=== PATIENT | female | born 1975 | race Caucasian/White ===

== ENCOUNTER → 2020-08-10 12:45 | Outpatient (CLI) | payer BC, SELFPAY ==
--- NOTE | ~2020-08-10 | MR_ITS ---
EXAMINATION: MR knee RT wo con DATE: 08/10/2020 13:30 INDICATION: Right knee pain and weakness TECHNIQUE: Magnetic resonance imaging (MRI) of the right knee was performed without intravenous contr ast. Sequences included coronal PD-weighted FSE, coronal PD-weighted FS FSE, sagittal T2-weighted FS E, sagittal PD-weighted FS FSE and axial PD weighted fat saturated FSE. COMPARISON: None. FINDINGS: Medial compartment: Medial meniscus is normal. Partial-thickness cartilage loss with chondral surface regularity along th e anterior to central weightbearing medial femoral condyle where it appears to involve greater than 5 0% the cartilage thickness but without degenerative subchondral changes. A severe partial thickness c artilage loss with mild chondral surface regularity along the anterior medial tibial plateau. There i s mild subarticular edema along the anteromedial rim of the medial tibial plateau. Small marginal ost eophytes are present. Lateral compartment: Lateral meniscus is normal. Deep chondral fissuring at the anterior to central weightbearing lateral femoral condyle and likely small central subchondral osteophyte. Mild partial thickness cartilage los s with smooth chondral surface irregularity along the lateral tibial plateau. Patellofemoral compartment: Partial-thickness cartilage loss which appears to involve greater than 50% the cartilage thickness at the cephalad half of the patella including the lateral facet. There is mild subarticular edema as we ll as the medial facet. There is deep chondral fissuring at the caudal aspect of the patella where th e cartilage thickness is more preserved. Deep chondral fissuring at the trochlear groove and partial- thickness chondral ulceration along the caudal aspect of the lateral trochlea, both regions with subt le underlying cortical irregularity and the latter with mild subarticular edema. Ligaments and tendons: Anterior and posterior cruciate ligaments are normal. The fibular collateral ligament complex is norm al. Mild thickening and mild increased signal without surrounding edema at the proximal aspect of the medial collateral ligament consistent with mild scarring related to chronic sprain. The extensor mec hanism is normal. The visualized medial and lateral hamstring tendons as well as the iliotibial band are normal. Fluid: Physiologic amount of fluid in the joint space. No loose osteochondral bodies identified. Osseous/other: Aside from the previously noted tiny foci of mild subarticular edema there is normal marrow signal. N o fracture or pathologic marrow replacing process. A couple small bone islands at the lateral femoral condyle. There is mild edema in the superficial suprapatellar fat pad which can be seen with fat pad impingement syndrome. IMPRESSION: 1. 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 2. Mild edema in the superficial suprapatellar fat pad which can be seen with fat pad impingement syn drome. Reviewed, dictated and finalized at location A. IMPRESSION: 1. 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 2. Mild edema in the superficial suprapatellar fat pad which can be seen with f at pad impingement syndrome.
== END ==
PROVIDERS: PCP Family Medicine; Visit Provider Orthopaedic Surgery
DX: M25.561 Pain in right knee (principal); M94.261 Chondromalacia, right knee; M17.11 Unilateral primary osteoarthritis, right knee; M79.89 Other specified soft tissue disorders
CPT/HCPCS: 73721

== ENCOUNTER 2021-02-21 11:35 | Outpatient (CLI) | payer BC, SELFPAY ==
--- NOTE | ~2021-02-21 | US_ITS ---
EXAMINATION: US knee asp inj w image LT DATE: 02/21/2021 13:06 INDICATION: Left knee joint effusion TECHNIQUE: A time-out was performed to verify the patient's name, date of , and procedure to be performed . The procedure and its benefits and risks were discussed with the patient. Risks specifically discus sed included bleeding and infection. The patient understood the risks and agreed to proceed. The knee overlying the lateral aspect of the suprapatellar pouch was prepped and draped in the usual sterile manner. 3 mL 1% lidocaine was used for local anesthesia. A 20-gauge spinal needle was advanced into the left knee joint effusion utilizing continuous sonographic guidance. 33 mL of mildly turbid mejia sh orange-colored fluid was aspirated and sent to the lab for studies as ordered by the referring natan kim. A sterile bandage was applied. There were no immediate complications. FINDINGS: Grayscale ultrasound images demonstrate the aspiration needle advanced into a moderate-sized left kne e joint effusion at the lateral margin of the suprapatellar pouch. IMPRESSION: 1. Successful ultrasound-guided left knee arthrocentesis. Reviewed, dictated and finalized at location A.
[2021-02-21 13:22] LABS: Basophils Percent Auto 0.2 % (0.2-1.2); Eosinophils Absolute Auto 0.1 K/mm3 (0-0.3); Eosinophils Percent Auto 1.1 % (0-4.4); Hematocrit 43.4 % (37.0-47.0); Hemoglobin 14.1 g/dL (12.0-15.0); Immature Granulocyte Absolute 0.03 K/mm3 (0.00-0.031); Immature Granulocyte Percent A 0.3 % (0-0.5); Lymphocytes Absolute Auto 2.68 K/mm3 (0.9-3.2); Lymphocytes Percent Auto 25.8 % (18.3-44.2); Mean Corpuscular HGB Conc 32.5 g/dl (32-36); Mean Corpuscular Volume 89.3 fl (80-100); Mean Platelet Volume 11.5 fl (7.4-10.4); Monocytes Absolute Auto 0.6 K/mm3 (0.1-0.6); Monocytes Percent Auto 6.1 % (2.6-8.5); Neutrophils Absolute Auto 6.9 K/mm3 (1.3-6.7); Neutrophils Percent Auto 66.5 % (45.5-73.1); Platelet Count Result 281 k/mm3 (150-375); Red Blood Count 4.86 M/mm3 (4.2-5.4); Red Cell Distribution Width 13.5 % (11.5-14.5); White Blood Count 10.4 K/mm3 (4.5-10.0)
[2021-02-21 13:40] LABS: CRP < 0.5 mg/dL (<1.0)
[2021-02-21 13:51] LABS: Erythrocyte Sedimentation Rate 26 mm/hr (0-20)
[2021-02-21 16:44] LABS: Crystals Synovial Fluid None Seen (None Seen)
[2021-02-21 16:45] LABS: Appearance Synovial Fluid Cloudy (Clear); Color Synovial Fluid Red (Colorless); Nucleated Cell Synovial Fluid 800 /uL (0-200); Source Synovial Fluid Synovial fluid
[2021-02-21 16:46] LABS: Lymphocytes Synovial Fluid 10 %; Monocytes Synovial Fluid 14 %; Neutrophils Synovial Fluid 61 % (0-25)
[2021-02-21 16:47] LABS: Macrophages Synovial Fluid 15 %
== END 2021-02-21 11:36 | disposition home or self-care (01) ==
PROVIDERS: PCP Family Medicine; Visit Provider Orthopaedic Surgery
DX: M25.562 Pain in left knee (principal); M24.562 Contracture, left knee
CPT/HCPCS: 20611; 36415; 85025; 85652; 86140; 87070; 87075; 87076; 87205; 89051; 89060

== ENCOUNTER 2021-09-28 07:39 | Emergency (ER) | payer BC, MEDICARE, SELFPAY ==
[2021-09-28] VITALS (7 sets, daily range): BP systolic 133–141; BP diastolic 84–85; PULSE 78–89; RESP 14–29; TEMP 36.3; O2SAT 98–100
--- NOTE | ~2021-09-28 | XR_ITS ---
EXAMINATION: XR chest 2V DATE: 09/28/2021 08:10 INDICATION: Midsternal chest pain TECHNIQUE: PA and lateral views of the chest are obtained. COMPARISON: 05/09/2019 FINDINGS: The lungs are free of acute opacities. There is no pleural effusion or pneumothorax. The ca rdiomediastinal silhouette is normal. There is mild thoracic spondylosis. IMPRESSION: 1. No acute cardiopulmonary abnormality. Reviewed, dictated and finalized at location A.
--- NOTE | 2021-09-28 07:41 | ECG_ITS ---
Measurements Intervals [place] Rate: 87 P: 34 [place]: 164 QRS: -15 QRSD: 111 T: 11 QT: 385 QTc: 465 Interpretive Statements SINUS RHYTHM INCOMPLETE RIGHT BUNDLE BRANCH BLOCK BORDERLINE T WAVE ABNORMALITY- INFERIORLEADS BASELINE ARTIFACT- I, II, III, AVL, AVF, V3 BORDERLINE ECG Electronically Signed On 09-28-2021 7:56:22 CDT by Earl Leon D.O.
[2021-09-28] MEDS: ASPIRIN 81 MG CHEWABLE TABLET 324 MG PO (07:57)
[2021-09-28 07:58] LABS: Basophils Percent Auto 0.2 % (0.2-1.2); Eosinophils Absolute Auto 0.1 K/mm3 (0-0.3); Eosinophils Percent Auto 1.3 % (0-4.4); Hematocrit 45.7 % (37.0-47.0); Hemoglobin 14.9 g/dL (12.0-15.0); Immature Granulocyte Absolute 0.03 K/mm3 (0.00-0.031); Immature Granulocyte Percent A 0.3 % (0-0.5); Lymphocytes Absolute Auto 3.04 K/mm3 (0.9-3.2); Lymphocytes Percent Auto 30.6 % (18.3-44.2); Mean Corpuscular HGB Conc 32.6 g/dl (32-36); Mean Corpuscular Hemoglobin 29.9 pg (26-34); Mean Corpuscular Volume 91.6 fl (80-100); Mean Platelet Volume 11.2 fl (7.4-10.4); Monocytes Absolute Auto 0.7 K/mm3 (0.1-0.6); Monocytes Percent Auto 7.1 % (2.6-8.5); Neutrophils Percent Auto 60.5 % (45.5-73.1); Platelet Count Result 278 k/mm3 (150-375); Red Blood Count 4.99 M/mm3 (4.2-5.4); Red Cell Distribution Width 14.3 % (11.5-14.5)
[2021-09-28 08:20] LABS: Alanine Aminotransferase 26 U/L (6-35); Albumin Level 4.4 g/dL (3.5-5.1); Alkaline Phosphatase 67 U/L (38-126); Anion Gap 10 mmol/L (8-16); Aspartate Amino Transferase 35 U/L (14-36); Bilirubin,Total 0.3 mg/dL (0.2-1.3); Blood Urea Nitrogen 14 mg/dL (7-17); Carbon Dioxide 24 mmol/L (22-30); Chloride 103 mmol/L (98-107); Estimated CRCL calculation 145 ml/min; Estimated Glomerular Filt Rate > 60; Glucose 137 mg/dL (65-110); Lipase 80 U/L (23-300); Potassium 3.8 mmol/L (3.4-5.0); Sodium 137 mmol/L (137-145)
[2021-09-28 08:21] LABS: Partial Thromboplastin Time 27.4 SECONDS (22.3-36.8); Prothrombin Time 12.6 Seconds (11.1-14.7)
--- NOTE | 2021-09-28 08:22 | ED.CHESTPAIN ---
HPI - Chest Pain General Chief Complaint: Chest Pain Stated Complaint: chest pain/panic attack Time Seen by Provider: 09/28/21 07:47 Source: patient Mode of arrival: ambulatory Limitations: no limitations History of Present Illness HPI narrative: Patient is 46 years old white female who woke up with pain across the chest and across upper back, hurts to breathe, nausea, dizzy, squeezing feeling across the chest. History of psoriatic arthritis, and anxiety and depression. Patient was started infusion for psoriatic arthritis 5 weeks ago, had 1 mg Klonopin prior to arrival to the emergency room, been stressed and anxious over the last 7 days, cannot sleep well lately. Used to be on marijuana which is stopped 1 week ago. She denies any fever, chills, vomiting, trouble breathing. Patient believes that she have a panic attack Related Data Home Medications Medication Instructions Recorded Confirmed ropinirole 1 mg PO HS 05/09/19 06/27/21 calcium carbonate 600 mg calcium 600 mg PO DAILY 06/06/20 06/27/21 (1,500 mg) tablet mecobalamin (vitamin B12) 5,000 mcg PO 06/06/20 06/27/21 mcg disintegrating tablet multivitamin 1 tablet PO DAILY 06/06/20 06/27/21 pantoprazole 20 mg tablet,delayed 20 mg PO QAM 06/06/20 06/27/21 release vitamin B complex 1 tablet PO DAILY 06/06/20 06/27/21 aripiprazole 10 mg tablet 15 mg PO DAILY tablet 05/17/21 06/27/21 methotrexate sodium 5 mg tablet See Rx Instructions PO WEEKLY 06/19/21 06/27/21 prednisone 5 mg tablet See Rx Instructions PO DAILY 06/19/21 06/27/21 tramadol 50 mg tablet See Rx Instructions PO Q6H PRN 06/19/21 06/27/21 clonazepam 09/28/21 duloxetine mg PO 09/28/21 lemborexant [Dayvigo] mg PO 09/28/21 ramelteon mg PO 09/28/21 triazolam 09/28/21 Allergies Allergy/AdvReac Type Severity Reaction Status Date / Time Penicillins Allergy Severe Hives Verified 09/28/21 07:58 adhesive Allergy Intermediate BLISTERS/RA Verified 09/28/21 07:58 SH latex Allergy Intermediate Rash Verified 09/28/21 07:58 amoxicillin Allergy Mild Unknown Verified 09/28/21 07:58 azithromycin Allergy Unknown Unknown Verified 09/28/21 07:58 ibuprofen AdvReac Mild Other Verified 09/28/21 07:58 Review of Systems Review of Systems: All systems reviewed & are unremarkable except as noted in HPI and below PMFSH Past Medical History Medical History Anemia Anxiety Arthritis Arthritis of knee, right Crohn's proctitis She notes it has been labelled on the Crohn's umbrella, but denies actually having Crohn's Depression Endometriosis Enteropathic arthritis Fibroids Fibromyalgia (~2008) Hiatal hernia Insomnia Interstitial cystitis Psoriatic arthritis (~2019) Restless leg syndrome UTI (urinary tract infection) Vitamin D deficiency Surgical History Surgical History History of breast surgery right - excision abscess 2019 History of cholecystectomy 2005 History of dilation and curettage 2008 - 2009 multiple History of gastric bypass 2014 History of hysterectomy 2019 History of left knee replacement February 2020 - [facility] History of parotid gland excision benign tumour - 2010 History of repair of rectocele 2019 Thyroid tumor, benign cyst excision - 1993 Family History Family History Father Hypertension Family history of elevated blood lipids Family history of arthritis Mother Hypertension Family history of elevated blood lipids Family history of osteoporosis Family history of malignant neoplasm of breast Grandparent Family history of osteoporosis Hypertension Family history of Alzheimer's disease Family history of emphysema Family history of malignant neoplasm of ovary Sibling Hypertension Family history of arthritis Social History Social History Smoking packs per day
[2021-09-28 08:30] LABS: Troponin I < 0.012 ng/mL (0.000-0.034)
[2021-09-28] MEDS: LORazepam INJ (*CRX) 2 MG/ML VIAL 1 MG IV PUSH (08:40)
[2021-09-28 10:08] LABS: D Dimer < 0.27 ug/mL (<0.48)
== END 2021-09-28 10:11 | disposition home or self-care (01) ==
PROVIDERS: Emergency Provider Emergency Medicine; PCP Family Medicine
DX: R07.9 Chest pain, unspecified (principal); F41.9 Anxiety disorder, unspecified; L40.50 Arthropathic psoriasis, unspecified; K50.90 Crohn's disease, unspecified, without complications; M79.7 Fibromyalgia; G25.81 Restless legs syndrome; M17.11 Unilateral primary osteoarthritis, right knee; F32.A Depression, unspecified; E55.9 Vitamin D deficiency, unspecified; Z86.2 Personal history of diseases of the blood and blood-forming organs and certain disorders involving the immune mechanism; Z87.440 Personal history of urinary (tract) infections; Z98.84 Bariatric surgery status; Z96.652 Presence of left artificial knee joint; Z87.891 Personal history of nicotine dependence; I45.10 Unspecified right bundle-branch block; R94.31 Abnormal electrocardiogram [ECG] [EKG]
CPT/HCPCS: 36415; 71046; 80053; 83690; 84484; 85025; 85380; 85610; 85730; 93005; 96374; 99284; A9270; J2060

== ENCOUNTER 2021-10-19 14:55 | Emergency (ER) | payer BC, MEDICARE, SELFPAY ==
[2021-10-19] VITALS (15 sets, daily range): BP systolic 131–143; BP diastolic 74–97; PULSE 61–95; RESP 11–22; TEMP 36.2–36.8; O2SAT 94–100
--- NOTE | ~2021-10-19 | CT_ITS ---
EXAMINATION: CTA chest PE protocol DATE: 10/19/2021 18:26 INDICATION: Chest pain TECHNIQUE: Computed tomography angiography (CTA) of the chest was performed with 100 mL Omnipaque-350 intravenous contrast timed to evaluate the pulmonary arteries. Coronal maximum intensity projection 3D-reconstructions were created by the technologist. Automated exposure control and iterative reconst ruction technique were employed. Exam dose: 824.27 mGy-cm total exam DLP. COMPARISON: 10/19/2021 2 view chest 05/09/2019 CT pulmonary scan FINDINGS: There is diagnostic contrast enhancement of the pulmonary arteries and no evidence of pulmo nary embolism. Mild thoracic aortic aneurysm, measuring up to 4.2 cm in the ascending aorta and 3.3 cm diameter at t he anterior aspect of the aortic arch No thoracic aortic dissection. No hilar or mediastinal mass lesion or lymphadenopathy. Heart size is within normal range. No pericardial or pleural effusion. No pulmonary infiltrate or consolidation or pulmonary mass lesion. Normal morphology of the adrenal glands. Status post gastric bypass surgery. Small sliding hiatal hernia. Status post cholecystectomy. Degenerative spurring of the thoracic spine. No suspicious osteolytic or osteoblastic lesions. IMPRESSION: No evidence of pulmonary embolism Thoracic aortic aneurysm Status post gastric bypass surgery Status post cholecystectomy Small sliding hiatal hernia Reviewed, dictated and finalized at [facility]. Reviewed, dictated and finalized at location A.
--- NOTE | ~2021-10-19 | XR_ITS ---
EXAMINATION: XR chest 2V 10/19/2021 15:37 INDICATION: Midsternal chest pain and shortness of breath PROCEDURE: 2 view chest COMPARISON: 11/11/2018 FINDINGS: The lungs are clear. The cardiomediastinal silhouette is within normal limits. There are no pleural effusions. There is no pneumothorax suspected. IMPRESSION: 1: NO ACUTE CARDIOPULMONARY DISEASE. Reviewed, dictated and finalized at location B.
--- NOTE | 2021-10-19 15:01 | ECG_ITS ---
Measurements Intervals [place] Rate: 77 P: 24 [place]: 158 QRS: -8 QRSD: 101 T: 19 QT: 382 QTc: 432 Interpretive Statements SINUS RHYTHM NONSPECIFIC T-WAVE ABNORMALITIES ABNORMAL ECG COMPARED TO ECG 09/28/2021 07:49:40 NO SIGNIFICANT CHANGES Electronically Signed On 10-20-2021 13:42:05 CDT by Shekhar Garcia M.D.
[2021-10-19 15:20] LABS: Basophils Percent Auto 0.1 % (0.2-1.2); Eosinophils Percent Auto 0.1 % (0-4.4); Hematocrit 44.1 % (37.0-47.0); Hemoglobin 14.3 g/dL (12.0-15.0); Immature Granulocyte Absolute 0.06 K/mm3 (0.00-0.031); Immature Granulocyte Percent A 0.4 % (0-0.5); Lymphocytes Absolute Auto 2.94 K/mm3 (0.9-3.2); Lymphocytes Percent Auto 17.9 % (18.3-44.2); Mean Corpuscular HGB Conc 32.4 g/dl (32-36); Mean Corpuscular Volume 92.5 fl (80-100); Mean Platelet Volume 11.2 fl (7.4-10.4); Monocytes Absolute Auto 1.2 K/mm3 (0.1-0.6); Monocytes Percent Auto 7.1 % (2.6-8.5); Neutrophils Absolute Auto 12.2 K/mm3 (1.3-6.7); Neutrophils Percent Auto 74.4 % (45.5-73.1); Platelet Count Result 320 k/mm3 (150-375); Red Blood Count 4.77 M/mm3 (4.2-5.4); Red Cell Distribution Width 13.8 % (11.5-14.5); White Blood Count 16.4 K/mm3 (4.5-10.0)
[2021-10-19 15:33] LABS: INR 0.9
[2021-10-19 15:34] LABS: Partial Thromboplastin Time 25.8 SECONDS (22.3-36.8)
[2021-10-19 15:37] LABS: Alanine Aminotransferase 17 U/L (6-35); Albumin Level 4.2 g/dL (3.5-5.1); Alkaline Phosphatase 58 U/L (38-126); Anion Gap 4 mmol/L (8-16); Aspartate Amino Transferase 23 U/L (14-36); Bilirubin,Total 0.5 mg/dL (0.2-1.3); Blood Urea Nitrogen 23 mg/dL (7-17); Calcium 8.9 mg/dL (8.4-10.2); Carbon Dioxide 32 mmol/L (22-30); Chloride 101 mmol/L (98-107); Estimated CRCL calculation 126 ml/min; Estimated Glomerular Filt Rate > 60; Glucose 93 mg/dL (65-110); Lipase 128 U/L (23-300); Potassium 4.2 mmol/L (3.4-5.0); Sodium 137 mmol/L (137-145)
[2021-10-19 15:48] LABS: Troponin I < 0.012 ng/mL (0.000-0.034)
[2021-10-19 18:24] LABS: Troponin I < 0.012 ng/mL (0.000-0.034)
[2021-10-19] MEDS: ONDANSETRON INJ 4 MG/2 ML VIAL IV PUSH (18:28)
[2021-10-19] MEDS: MORPHINE SULFATE (*CRX) 4 MG/ML INJ IV PUSH (18:28)
--- NOTE | 2021-10-19 19:03 | ED.CHESTPAIN ---
HPI - Chest Pain General Chief Complaint: Chest Pain Stated Complaint: sent from PCP for HTN and tachycardia Time Seen by Provider: 10/19/21 17:02 History of Present Illness HPI narrative: Patient is a 46-year-old female who presents ER with chest pain. She reports its been ongoing over the last month. She was diagnosed with costochondritis. Her finish cleaner wrote her a for Medrol Dosepak over the last couple days. Pain is worse with movement and deep breath. Patient is on methotrexate for psoriatic arthritis and also receives infusions. She has no fevers or chills or sweats. No productive cough or hemoptysis. Pain is not improving. Today she noted that her blood pressure as high as 200 mmHg systolic. She called her PCP and informed them of these findings as well as an elevated heart rate and he recommended she come to the ER. Patient has no history of PE. She is not on any blood thinners. Related Data Home Medications Medication Instructions Recorded Confirmed ropinirole 1 mg tablet 1 mg PO HS 05/09/19 06/27/21 calcium carbonate 600 mg calcium 600 mg PO DAILY 06/06/20 06/27/21 (1,500 mg) tablet (Calcium) mecobalamin (vitamin B12) 5,000 mcg PO 06/06/20 06/27/21 mcg disintegrating tablet multivitamin 1 tablet PO DAILY 06/06/20 06/27/21 pantoprazole 20 mg tablet,delayed 20 mg PO QAM 06/06/20 06/27/21 release vitamin B complex (B 1 tablet PO DAILY 06/06/20 06/27/21 Complex-Vitamin B12 tablet) aripiprazole 10 mg tablet 15 mg PO DAILY 05/17/21 06/27/21 methotrexate sodium 5 mg tablet See Rx Instructions PO WEEKLY 06/19/21 06/27/21 prednisone 5 mg tablet See Rx Instructions PO DAILY 06/19/21 06/27/21 tramadol 50 mg tablet See Rx Instructions PO Q6H PRN 06/19/21 06/27/21 Abdominal Discomfort clonazepam 0.5 mg tablet 09/28/21 duloxetine 60 mg capsule,delayed mg PO 09/28/21 release lemborexant 10 mg tablet (Dayvigo) mg PO 09/28/21 ramelteon 8 mg tablet mg PO 09/28/21 triazolam 0.25 mg tablet 05/20/22 Allergies Allergy/AdvReac Type Severity Reaction Status Date / Time Penicillins Allergy Severe Hives Verified 09/28/21 07:58 adhesive Allergy Intermediate BLISTERS/RA Verified 09/28/21 07:58 SH latex Allergy Intermediate Rash Verified 09/28/21 07:58 amoxicillin Allergy Mild Unknown Verified 09/28/21 07:58 azithromycin Allergy Unknown Unknown Verified 09/28/21 07:58 ibuprofen AdvReac Mild Other Verified 09/28/21 07:58 Review of Systems Review of Systems: All systems reviewed & are unremarkable except as noted in HPI and below Constitutional: Constitutional: Denies chills and Denies fever(s) ENT: Denies nasal congestion and Denies sore throat Cardiovascular: Cardiovascular: Reports chest pain, Denies rapid heart rate and Denies radiating jaw, neck or arm pain Respiratory: Respiratory: Denies cough and Denies dyspnea Gastrointestinal: Gastrointestinal: Denies abdominal pain, Denies nausea and Denies vomiting PMFSH Past Medical History Medical History Anemia Anxiety Arthritis Arthritis of knee, right Crohn's proctitis She notes it has been labelled on the Crohn's umbrella, but denies actually having Crohn's Depression Endometriosis Enteropathic arthritis Fibroids Fibromyalgia (~2008) Hiatal hernia Insomnia Interstitial cystitis Psoriatic arthritis (~2019) Restless leg syndrome UTI (urinary tract infection) Vitamin D deficiency Surgical History Surgical History History of breast surgery right - excision abscess 2019 History of cholecystectomy 2005 History of dilation and curettage 2008 - 2009 multiple History of gastric bypass 2015 History of hysterectomy 2019 History of left knee replacement February 2020 - [facility] History of parotid gland excision benign tumour - 2010 History of repair of rectocele 2019 Thyroid tumor, benign cyst excision - 1993 Family History
== END 2021-10-19 20:07 | disposition home or self-care (01) ==
PROVIDERS: Emergency Provider Emergency Medicine; PCP Family Medicine
DX: R07.89 Other chest pain (principal); L40.50 Arthropathic psoriasis, unspecified; M17.11 Unilateral primary osteoarthritis, right knee; N80.9 Endometriosis, unspecified; M79.7 Fibromyalgia; G25.81 Restless legs syndrome; Z87.440 Personal history of urinary (tract) infections; E55.9 Vitamin D deficiency, unspecified; F41.9 Anxiety disorder, unspecified; F32.A Depression, unspecified; Z86.2 Personal history of diseases of the blood and blood-forming organs and certain disorders involving the immune mechanism; Z98.84 Bariatric surgery status; Z96.652 Presence of left artificial knee joint; Z87.891 Personal history of nicotine dependence; R94.31 Abnormal electrocardiogram [ECG] [EKG]; K44.9 Diaphragmatic hernia without obstruction or gangrene; I71.2 Thoracic aortic aneurysm, without rupture
CPT/HCPCS: 36415; 71046; 71275; 80053; 83690; 84484; 85025; 85610; 85730; 93005; 96374; 96375; 99284; J2270; J2405; Q9967

== ENCOUNTER 2021-10-25 11:53 | Emergency (ER) | payer MEDICARE, BC, SELFPAY ==
[2021-10-25] VITALS (15 sets, daily range): BP systolic 104–124; BP diastolic 68–92; PULSE 60–88; RESP 11–19; TEMP 36.7; O2SAT 94–100
--- NOTE | ~2021-10-25 | CT_ITS ---
EXAMINATION: CT abdomen pelvis w con DATE: 10/25/2021 13:20 INDICATION: Generalized abdominal pain. Nausea and vomiting. TECHNIQUE: Computed tomography (CT) of the abdomen and pelvis was performed with 100 mL Omnipaque 350 intravenous contrast. Automated exposure control and iterative reconstruction technique were employe d. The dose-length product was 1545.05 mGy-cm. COMPARISON: CT abdomen and pelvis 04/03/2019 FINDINGS: The visualized portions of the lung bases are clear without pneumonia or pleural effusion. The heart size is normal. No pericardial effusion. There is a small sliding hiatal hernia. There are surgical changes of the stomach. The liver is normal. There are changes of cholecystectomy. The splee n, pancreas, adrenal glands, and right kidney are normal. There is a 1.3 cm cyst in left kidney. Ther e is a 4.6 cm cyst in left ovary. There is diverticulosis of the colon without evidence of diverticul itis. The appendix is normal. There are no dilated loops of bowel. There are no pathologically enlarg ed lymph nodes. There is no free intraperitoneal fluid. There is mild thoracolumbar spondylosis. IMPRESSION: 1. 4.6 cm cyst in left ovary, likely a follicular cyst. Reviewed, dictated and finalized at location B.
--- NOTE | 2021-10-25 12:08 | ECG_ITS ---
Measurements Intervals [place] Rate: 74 P: 17 [place]: 167 QRS: -15 QRSD: 95 T: 21 QT: 386 QTc: 430 Interpretive Statements SINUS RHYTHM NORMAL ECG COMPARED TO ECG 10/19/2021 15:05:27 NO SIGNIFICANT CHANGES Electronically Signed On 10-25-2021 12:51:23 CDT by Shekhar Garcia M.D.
[2021-10-25] MEDS: PROMETHAZINE HCL 25 MG/ML AMPUL 12.5 MG IV PUSH (12:43)
[2021-10-25] MEDS: ONDANSETRON INJ 4 MG/2 ML VIAL IV PUSH (12:43)
[2021-10-25 12:44] LABS: Basophils Percent Auto 0.2 % (0.2-1.2); Eosinophils Absolute Auto 0.1 K/mm3 (0-0.3); Eosinophils Percent Auto 0.7 % (0-4.4); Hemoglobin 15.4 g/dL (12.0-15.0); Immature Granulocyte Absolute 0.08 K/mm3 (0.00-0.031); Immature Granulocyte Percent A 0.5 % (0-0.5); Lymphocytes Absolute Auto 4.02 K/mm3 (0.9-3.2); Lymphocytes Percent Auto 24.5 % (18.3-44.2); Mean Corpuscular HGB Conc 32.1 g/dl (32-36); Mean Corpuscular Hemoglobin 29.9 pg (26-34); Mean Corpuscular Volume 93.2 fl (80-100); Mean Platelet Volume 11.3 fl (7.4-10.4); Monocytes Absolute Auto 1.2 K/mm3 (0.1-0.6); Monocytes Percent Auto 7.5 % (2.6-8.5); Neutrophils Percent Auto 66.6 % (45.5-73.1); Platelet Count Result 353 k/mm3 (150-375); Red Blood Count 5.15 M/mm3 (4.2-5.4); Red Cell Distribution Width 13.8 % (11.5-14.5); White Blood Count 16.4 K/mm3 (4.5-10.0)
[2021-10-25] MEDS: LACTATED RINGERS 1,000 ML 999 ML IV CONT ×2 (12:44→14:31)
[2021-10-25 12:54] LABS: Appearance Urine Cloudy (Clear); Bilirubin Urine Negative (Negative); Blood Urine Negative (Negative); Color Urine Yellow (Yellow); Glucose Urine UA Negative (Negative); Ketones Urine Negative (Negative); Leukocyte Esterase Ur Negative LEU/UL (Negative); Nitrate Urine Positive (Negative); Protein Urine Negative (Negative)
--- NOTE | 2021-10-25 12:56 | PC.NURSE ---
50mL normal saline used for Phenergan dilution and administration.
[2021-10-25 12:57] LABS: Mucus Urine Heavy /lpf; RBC Urine 0-2 /hpf (0-2); Squamous Epithelial Cell Urine Occasional /hpf (Few)
[2021-10-25 12:58] LABS: Add Urine Microscopic? YES
[2021-10-25 13:02] LABS: Alanine Aminotransferase 17 U/L (6-35); Albumin Level 4.2 g/dL (3.5-5.1); Alkaline Phosphatase 64 U/L (38-126); Anion Gap 6 mmol/L (8-16); Aspartate Amino Transferase 26 U/L (14-36); Bilirubin,Total 0.4 mg/dL (0.2-1.3); Blood Urea Nitrogen 18 mg/dL (7-17); Calcium 8.8 mg/dL (8.4-10.2); Carbon Dioxide 30 mmol/L (22-30); Chloride 100 mmol/L (98-107); Estimated CRCL calculation 146 ml/min; Estimated Glomerular Filt Rate > 60; Glucose 82 mg/dL (65-110); Lipase 87 U/L (23-300); Potassium 4.2 mmol/L (3.4-5.0); Sodium 136 mmol/L (137-145)
--- NOTE | 2021-10-25 13:27 | ED.GENADULT ---
HPI - General Adult General Chief complaint: Dizziness Stated complaint: dizzy Time Seen by Provider: 10/25/21 12:09 Source: patient, RN notes reviewed and old records reviewed Mode of arrival: ambulatory Limitations: no limitations History of Present Illness HPI narrative: This is a 46 year old female who presents for evaluation of nausea, vomiting. Patient states last night she develop nausea and vomiting. She developed diffuse abdominal pain today and it has been constant. She denies diarrhea. She also reports dizziness as well. SHe denies headache, focal deficits, runny nose congestion She denies fever or chills . She denies chest pain or shortness of breath. Onset (ago): day(s) Related Data Home Medications Medication Instructions Recorded Confirmed ropinirole 1 mg tablet 1 mg PO HS 05/09/19 06/27/21 calcium carbonate 600 mg calcium 600 mg PO DAILY 06/06/20 06/27/21 (1,500 mg) tablet (Calcium) mecobalamin (vitamin B12) 5,000 mcg PO 06/06/20 06/27/21 mcg disintegrating tablet multivitamin 1 tablet PO DAILY 06/06/20 06/27/21 pantoprazole 20 mg tablet,delayed 20 mg PO QAM 06/06/20 06/27/21 release vitamin B complex (B 1 tablet PO DAILY 06/06/20 06/27/21 Complex-Vitamin B12 tablet) aripiprazole 10 mg tablet 15 mg PO DAILY 05/17/21 06/27/21 methotrexate sodium 5 mg tablet See Rx Instructions PO WEEKLY 06/19/21 06/27/21 prednisone 5 mg tablet See Rx Instructions PO DAILY 06/19/21 06/27/21 tramadol 50 mg tablet See Rx Instructions PO Q6H PRN 06/19/21 06/27/21 Abdominal Discomfort clonazepam 0.5 mg tablet 09/28/21 duloxetine 60 mg capsule,delayed mg PO 09/28/21 release lemborexant 10 mg tablet (Dayvigo) mg PO 09/28/21 ramelteon 8 mg tablet mg PO 09/28/21 triazolam 0.25 mg tablet 09/28/21 Allergies Allergy/AdvReac Type Severity Reaction Status Date / Time Penicillins Allergy Severe Hives Verified 09/28/21 07:58 adhesive Allergy Intermediate BLISTERS/RA Verified 09/28/21 07:58 SH latex Allergy Intermediate Rash Verified 09/28/21 07:58 amoxicillin Allergy Mild Unknown Verified 09/28/21 07:58 azithromycin Allergy Unknown Unknown Verified 09/28/21 07:58 ibuprofen AdvReac Mild Other Verified 09/28/21 07:58 Review of Systems Review of Systems: All systems reviewed & are unremarkable except as noted in HPI and below Constitutional: Constitutional: Denies chills, Reports fatigue and Denies fever(s) ENT: Denies nasal congestion and Denies sore throat Cardiovascular: Cardiovascular: Denies chest pain and Denies rapid heart rate Respiratory: Respiratory: Denies chest congestion and Denies cough Gastrointestinal: Gastrointestinal: Reports abdominal pain, Denies diarrhea, Reports nausea and Reports vomiting Genitourinary: Genitourinary: Reports nocturia and Denies dysuria Neurologic: Denies focal weakness PMFSH Past Medical History Medical History Anemia Anxiety Arthritis Arthritis of knee, right Crohn's proctitis She notes it has been labelled on the Crohn's umbrella, but denies actually having Crohn's Depression Endometriosis Enteropathic arthritis Fibroids Fibromyalgia (~2008) Hiatal hernia Insomnia Interstitial cystitis Psoriatic arthritis (~2019) Restless leg syndrome UTI (urinary tract infection) Vitamin D deficiency Surgical History Surgical History History of breast surgery right - excision abscess 2019 History of cholecystectomy 2005 History of dilation and curettage 2008 - 2009 multiple History of gastric bypass 2015 History of hysterectomy 2019 History of left knee replacement February 2020 - [place] History of parotid gland excision benign tumour - 2010 History of repair of rectocele 2019 Thyroid tumor, benign cyst excision - 1993 Family History Family History Father Hypertension Famil
== END 2021-10-25 15:46 | disposition home or self-care (01) ==
PROVIDERS: Emergency Provider General Practice; PCP Family Medicine
DX: N39.0 Urinary tract infection, site not specified (principal); N83.202 Unspecified ovarian cyst, left side; R11.2 Nausea with vomiting, unspecified; D64.9 Anemia, unspecified; L40.50 Arthropathic psoriasis, unspecified; M79.7 Fibromyalgia; M17.11 Unilateral primary osteoarthritis, right knee; G25.81 Restless legs syndrome; E55.9 Vitamin D deficiency, unspecified; F32.A Depression, unspecified; F41.9 Anxiety disorder, unspecified; Z87.440 Personal history of urinary (tract) infections; Z98.84 Bariatric surgery status; Z96.652 Presence of left artificial knee joint; Z90.710 Acquired absence of both cervix and uterus; Z87.891 Personal history of nicotine dependence
CPT/HCPCS: 36415; 74177; 80053; 81001; 81025; 83690; 85025; 87077; 87086; 87186; 93005; 96361; 96374; 96375; 99284; J0131; J2405; J2550; J7120; Q9967

== ENCOUNTER 2021-11-09 13:06 | Emergency (ER) | payer BC, MEDICARE, SELFPAY ==
[2021-11-09] VITALS (15 sets, daily range): BP systolic 100–121; BP diastolic 69–89; PULSE 65–101; RESP 12–22; TEMP 36.6; O2SAT 91–100
--- NOTE | 2021-11-09 13:25 | ECG_ITS ---
Measurements Intervals [place] Rate: 78 P: 27 [place]: 173 QRS: -17 QRSD: 95 T: 19 QT: 370 QTc: 423 Interpretive Statements SINUS RHYTHM LOW QRS VOLTAGE IN PRECORDIAL LEADS BORDERLINE R WAVE PROGRESSION, ANTERIOR LEADS BORDERLINE T WAVE ABNORMALITY- INFERIOR LEADS BASELINE ARTIFACT- I, II, III, V3-V4 BORDERLINE ECG Electronically Signed On 11-09-2021 13:40:10 CDT by Earl Leon D.O.
[2021-11-09 13:43] LABS: Basophils Percent Auto 0.2 % (0.2-1.2); Eosinophils Absolute Auto 0.1 K/mm3 (0-0.3); Eosinophils Percent Auto 0.9 % (0-4.4); Hematocrit 49.3 % (37.0-47.0); Immature Granulocyte Absolute 0.03 K/mm3 (0.00-0.031); Immature Granulocyte Percent A 0.3 % (0-0.5); Lymphocytes Absolute Auto 3.54 K/mm3 (0.9-3.2); Lymphocytes Percent Auto 30.8 % (18.3-44.2); Mean Corpuscular HGB Conc 32.5 g/dl (32-36); Mean Corpuscular Hemoglobin 30.2 pg (26-34); Mean Corpuscular Volume 93.2 fl (80-100); Mean Platelet Volume 10.5 fl (7.4-10.4); Monocytes Absolute Auto 0.9 K/mm3 (0.1-0.6); Neutrophils Absolute Auto 6.9 K/mm3 (1.3-6.7); Neutrophils Percent Auto 59.8 % (45.5-73.1); Platelet Count Result 388 k/mm3 (150-375); Red Blood Count 5.29 M/mm3 (4.2-5.4); Red Cell Distribution Width 13.9 % (11.5-14.5); White Blood Count 11.5 K/mm3 (4.5-10.0)
[2021-11-09 14:04] LABS: Alanine Aminotransferase 27 U/L (6-35); Albumin Level 4.6 g/dL (3.5-5.1); Alkaline Phosphatase 67 U/L (38-126); Anion Gap 5 mmol/L (8-16); Aspartate Amino Transferase 31 U/L (14-36); Bilirubin,Total 0.3 mg/dL (0.2-1.3); Blood Urea Nitrogen 19 mg/dL (7-17); Calcium 9.2 mg/dL (8.4-10.2); Carbon Dioxide 31 mmol/L (22-30); Chloride 101 mmol/L (98-107); Estimated CRCL calculation 114 ml/min; Estimated Glomerular Filt Rate > 60; Glucose 87 mg/dL (65-110); Potassium 4.5 mmol/L (3.4-5.0); Sodium 137 mmol/L (137-145)
[2021-11-09] MEDS: SODIUM CHLORIDE 0.9% IV 1,000 ML 999 ML IV CONT (14:35)
--- NOTE | 2021-11-09 16:20 | ED.GENADULT ---
HPI - General Adult General Chief complaint: Syncope Stated complaint: passed out at home Time Seen by Provider: 11/09/21 13:48 History of Present Illness HPI narrative: Patient is a 46-year-old female who presents ER with syncope. Occurred x2 at home. Patient reports she stood up and got lightheaded and then passed out. She reports she has been having to do eating and drinking over the last month with lots of burning that goes up her chest. She has history of hiatal hernia as well as Angeles's esophagus. She reports occasionally some food will get stuck and she will vomit. No exertional chest pain or discomfort. She does report history of thoracic aortic aneurysm is concerned she may have injured it during her fall. Related Data Home Medications Medication Instructions Recorded Confirmed ropinirole 1 mg tablet 1 mg PO HS 05/09/19 06/27/21 calcium carbonate 600 mg calcium 600 mg PO DAILY 06/06/20 06/27/21 (1,500 mg) tablet (Calcium) mecobalamin (vitamin B12) 5,000 mcg PO 06/06/20 06/27/21 mcg disintegrating tablet multivitamin 1 tablet PO DAILY 06/06/20 06/27/21 pantoprazole 20 mg tablet,delayed 20 mg PO QAM 06/06/20 06/27/21 release vitamin B complex (B 1 tablet PO DAILY 06/06/20 06/27/21 Complex-Vitamin B12 tablet) aripiprazole 10 mg tablet 15 mg PO DAILY 05/17/21 06/27/21 methotrexate sodium 5 mg tablet See Rx Instructions PO WEEKLY 06/19/21 06/27/21 prednisone 5 mg tablet See Rx Instructions PO DAILY 06/19/21 06/27/21 tramadol 50 mg tablet See Rx Instructions PO Q6H PRN 06/19/21 06/27/21 Abdominal Discomfort clonazepam 0.5 mg tablet 09/28/21 duloxetine 60 mg capsule,delayed mg PO 09/28/21 release lemborexant 10 mg tablet (Dayvigo) mg PO 09/28/21 ramelteon 8 mg tablet mg PO 09/28/21 triazolam 0.25 mg tablet 09/28/21 Allergies Allergy/AdvReac Type Severity Reaction Status Date / Time Penicillins Allergy Severe Hives Verified 09/28/21 07:58 adhesive Allergy Intermediate BLISTERS/RA Verified 09/28/21 07:58 SH latex Allergy Intermediate Rash Verified 09/28/21 07:58 amoxicillin Allergy Mild Unknown Verified 09/28/21 07:58 azithromycin Allergy Unknown Unknown Verified 09/28/21 07:58 ibuprofen AdvReac Mild Other Verified 09/28/21 07:58 Review of Systems Review of Systems: All systems reviewed & are unremarkable except as noted in HPI and below Constitutional: Constitutional: Denies chills, Denies fatigue and Denies fever(s) Cardiovascular: Cardiovascular: Denies chest pain and Denies radiating jaw, neck or arm pain Respiratory: Respiratory: Denies cough and Denies dyspnea Gastrointestinal: Gastrointestinal: Denies abdominal pain, Reports heartburn, Denies diarrhea, Reports nausea and Reports vomiting Neurologic: Reports syncope, Denies focal weakness and Denies numbness PMFSH Past Medical History Medical History Anemia Anxiety Arthritis Arthritis of knee, right Crohn's proctitis She notes it has been labelled on the Crohn's umbrella, but denies actually having Crohn's Depression Endometriosis Enteropathic arthritis Fibroids Fibromyalgia (~2008) Hiatal hernia Insomnia Interstitial cystitis Psoriatic arthritis (~2019) Restless leg syndrome UTI (urinary tract infection) Vitamin D deficiency Surgical History Surgical History History of breast surgery right - excision abscess 2019 History of cholecystectomy 2005 History of dilation and curettage 2008 - 2009 multiple History of gastric bypass 2015 History of hysterectomy 2019 History of left knee replacement February 2020 - [place] History of parotid gland excision benign tumour - 2010 History of repair of rectocele 2019 Thyroid tumor, benign cyst excision - 1993 Family History Family History Father Hypertension Family history of elevated blood lipids Fami
== END 2021-11-09 16:45 | disposition home or self-care (01) ==
PROVIDERS: Emergency Medicine; Emergency Provider Emergency Medicine; PCP Family Medicine
DX: R55 Syncope and collapse (principal); K21.9 Gastro-esophageal reflux disease without esophagitis; Z87.891 Personal history of nicotine dependence
CPT/HCPCS: 36415; 80053; 85025; 93005; 96360; 99284; J7030

== ENCOUNTER 2021-11-12 04:42 | Emergency (ER) | payer BC, MEDICARE, SELFPAY ==
[2021-11-12] VITALS (16 sets, daily range): BP systolic 109–128; BP diastolic 60–91; PULSE 55–79; RESP 15–19; TEMP 36.4; O2SAT 90–100
--- NOTE | ~2021-11-12 | CT_ITS ---
EXAMINATION: CTA chest abdomen pelvis DATE: 11/12/2021 06:57 INDICATION: Syncope. Hypertension. TECHNIQUE: Computed tomography angiography (CTA) of the chest abdomen and pelvis was performed with 1 00 mL Omnipaque-350 intravenous contrast timed to evaluate the pulmonary arteries. Coronal maximum in tensity projection 3D-reconstructions were created by the technologist. Automated exposure control an d iterative reconstruction technique were employed. Exam dose: 1899.79 mGy-cm total exam DLP. COMPARISON: 10/25/2021 CT abdomen pelvis 10/19/2021 CT pulmonary scan FINDINGS: No evidence of pulmonary embolism. No thoracic aortic aneurysm or dissection. No hilar or mediastinal mass lesion or lymphadenopathy. Normal heart size. No pericardial or pleural effusion. Small sliding hiatal hernia. Postoperative change of the stomach. Status post cholecystectomy. The liver, spleen, pancreas, bile ducts and pancreatic duct are unremarkable. Normal morphology of the adrenal glands. No renal mass lesion or urinary tract calculus or hydroureteronephrosis. Normal caliber of the abdomi nal aorta. No intraperitoneal or retroperitoneal or pelvic mass lesion or adenopathy or ascites. The urinary bladder is unremarkable. Status post hysterectomy. Normal appendix. No bowel obstruction or intraperitoneal free air. No abdominal aortic aneurysm or dissection. No intraperitoneal or retroperitoneal or pelvic mass lesi on or adenopathy or ascites. Small fat-containing umbilical hernia. Diminished size of left ovarian cyst since 10/25/2021. Degenerative disc disease lower cervical spine. Degenerative spurring of the thoracic spine. Mild deg enerative change of the lumbar spine. No suspicious osteolytic or osteoblastic lesions. IMPRESSION: No thoracic or abdominal aortic aneurysm or dissection Postoperative change of the stomach Small sliding hiatal hernia Diminished size of left ovarian cyst and 10/25/2021 Reviewed, dictated and finalized at [facility]. Reviewed, dictated and finalized at location A.
--- NOTE | 2021-11-12 05:09 | ECG_ITS ---
Measurements Intervals [place] Rate: 0 P: [place]: 0 QRS: QRSD: 0 T: QT: 0 QTc: 0 Interpretive Statements SINUS RHYTHM ATRIAL PREMATURE COMPLEX INCOMPLETE RIGHT BUNDLE BRANCH BLOCK BORDERLINE R WAVE PROGRESSION, ANTERIOR LEADS BASELINE ARTIFACT- I, III, AVL,A VF BORDERLINE ECG Electronically Signed On 11-12-2021 7:42:50 CDT by Earl Leon D.O.
[2021-11-12 05:40] LABS: Basophils Percent Auto 0.2 % (0.2-1.2); Eosinophils Absolute Auto 0.1 K/mm3 (0-0.3); Eosinophils Percent Auto 1.5 % (0-4.4); Hematocrit 44.3 % (37.0-47.0); Hemoglobin 14.4 g/dL (12.0-15.0); Immature Granulocyte Absolute 0.03 K/mm3 (0.00-0.031); Immature Granulocyte Percent A 0.3 % (0-0.5); Lymphocytes Absolute Auto 3.85 K/mm3 (0.9-3.2); Lymphocytes Percent Auto 43.6 % (18.3-44.2); Mean Corpuscular HGB Conc 32.5 g/dl (32-36); Mean Corpuscular Hemoglobin 30.1 pg (26-34); Mean Corpuscular Volume 92.5 fl (80-100); Mean Platelet Volume 10.6 fl (7.4-10.4); Monocytes Absolute Auto 0.6 K/mm3 (0.1-0.6); Neutrophils Absolute Auto 4.2 K/mm3 (1.3-6.7); Neutrophils Percent Auto 47.4 % (45.5-73.1); Platelet Count Result 347 k/mm3 (150-375); Red Blood Count 4.79 M/mm3 (4.2-5.4); White Blood Count 8.8 K/mm3 (4.5-10.0)
[2021-11-12 05:44] LABS: Appearance Urine Clear (Clear); Bacteria Urine Trace /hpf; Bilirubin Urine Negative (Negative); Blood Urine Negative (Negative); Color Urine Yellow (Yellow); Glucose Urine UA Negative (Negative); Ketones Urine Negative (Negative); Leukocyte Esterase Ur Negative LEU/UL (Negative); Nitrate Urine Negative (Negative); Protein Urine Negative (Negative); RBC Urine 0-2 /hpf (0-2); Squamous Epithelial Cell Urine Rare /hpf (Few); Urobilinogen Urine 0.2 mg/dL (<2.0); WBC Urine 0-3 /hpf
[2021-11-12 05:45] LABS: Add Urine Microscopic? NO
[2021-11-12 05:49] LABS: Alanine Aminotransferase 23 U/L (6-35); Albumin Level 4.2 g/dL (3.5-5.1); Alkaline Phosphatase 55 U/L (38-126); Anion Gap 5 mmol/L (8-16); Aspartate Amino Transferase 29 U/L (14-36); Bilirubin,Total 0.2 mg/dL (0.2-1.3); Blood Urea Nitrogen 14 mg/dL (7-17); Calcium 8.9 mg/dL (8.4-10.2); Carbon Dioxide 32 mmol/L (22-30); Chloride 100 mmol/L (98-107); Estimated CRCL calculation 146 ml/min; Estimated Glomerular Filt Rate > 60; Glucose 89 mg/dL (65-110); Potassium 4.2 mmol/L (3.4-5.0); Sodium 137 mmol/L (137-145)
--- NOTE | 2021-11-12 06:20 | ED.GENADULT ---
HPI - General Adult General Chief complaint: Syncope <Bobby Hernández MD - Last Filed: 11/12/21 19:10> Stated complaint: syncope x 4 <Bobby Hernández MD - Last Filed: 11/12/21 19:10> Time Seen by Provider: 11/12/21 05:35 <Bobby Hernández MD - Last Filed: 11/12/21 19:10> History of Present Illness HPI narrative: 46-year-old female with history of thoracic aortic aneurysm and syncope presents emerged department after having multiple syncopal episodes. Patient states she does take metoprolol and had 2 episodes of near syncope where she stood up and fell like she is going to pass out. Patient came to the emergency department because last night while she was sitting on the bed she had 2 additional syncopal episodes. Patient states yesterday was a normal day for her other than an episode of emesis that she thought was secondary to eating. Patient does have a history of a thoracic aortic aneurysm for which he follows up with Dr. Quintero. Patient does take metoprolol and lisinopril. Patient does have a mild headache at this time. Patient denies any associated chest pain or shortness of breath. <Bobby Hernández MD - Last Filed: 11/12/21 19:10> Related Data Home medications: Home Medications Medication Instructions Recorded Confirmed ropinirole 1 mg tablet 1 mg PO HS 05/09/19 06/27/21 calcium carbonate 600 mg calcium 600 mg PO DAILY 06/06/20 06/27/21 (1,500 mg) tablet (Calcium) mecobalamin (vitamin B12) 5,000 mcg PO 06/06/20 06/27/21 mcg disintegrating tablet multivitamin 1 tablet PO DAILY 06/06/20 06/27/21 pantoprazole 20 mg tablet,delayed 20 mg PO QAM 06/06/20 06/27/21 release vitamin B complex (B 1 tablet PO DAILY 06/06/20 06/27/21 Complex-Vitamin B12 tablet) aripiprazole 10 mg tablet 15 mg PO DAILY 05/17/21 06/27/21 methotrexate sodium 5 mg tablet See Rx Instructions PO WEEKLY 06/19/21 06/27/21 prednisone 5 mg tablet See Rx Instructions PO DAILY 06/19/21 06/27/21 tramadol 50 mg tablet See Rx Instructions PO Q6H PRN 06/19/21 06/27/21 Abdominal Discomfort clonazepam 0.5 mg tablet 09/28/21 duloxetine 60 mg capsule,delayed mg PO 09/28/21 release lemborexant 10 mg tablet (Dayvigo) mg PO 09/28/21 ramelteon 8 mg tablet mg PO 09/28/21 triazolam 0.25 mg tablet 09/28/21 <Bobby Hernández MD - Last Filed: 11/12/21 19:10> Allergies/adverse reactions: Allergies Allergy/AdvReac Type Severity Reaction Status Date / Time Penicillins Allergy Severe Hives Verified 11/12/21 04:50 adhesive Allergy Intermediate BLISTERS/RA Verified 11/12/21 04:50 SH latex Allergy Intermediate Rash Verified 11/12/21 04:50 amoxicillin Allergy Mild Unknown Verified 11/12/21 04:50 azithromycin Allergy Unknown Unknown Verified 11/12/21 04:50 ibuprofen AdvReac Mild Other Verified 11/12/21 04:50 <Bobby Hernández MD - Last Filed: 11/12/21 19:10> Review of Systems Review of Systems: CONSTITUTIONAL: Denies fever, chills, or sweats. EYES: Denies visual changes, redness, or discharge. ENT: Denies rhinorrhea, congestion, sore throat, or otalgia. CARDIOVASCULAR: Denies chest pain, palpitations, or edema. RESPIRATORY: Denies cough or dyspnea. GASTROINTESTINAL: Denies abdominal pain, nausea, vomiting, or diarrhea. GENITOURINARY: Denies dysuria or hematuria. SKIN: Denies rash or itching. MUSCULOSKELETAL: Denies back pain, joint pain, or myalgia. NEUROLOGIC: See HPI PSYCHIATRIC: Denies anxiety or depression. <Bobby Hernández MD - Last Filed: 11/12/21 19:10> [facility] Past Medical History Medical History: Medical History Anemia Anxiety Arthritis Arthritis of knee, right Crohn's proctitis She notes it has been labelled on the Crohn's umbrella, but denies actually having Crohn's Depression Endometriosis Enteropathic arthritis Fibroids Fibromyalgia (~2008) Hiatal hernia Insomnia Interstitial cystitis Psoriatic arthritis (~2019) Restless l
[2021-11-12] MEDS: SODIUM CHLORIDE 0.9% IV 1,000 ML 999 ML IV CONT (06:33)
--- NOTE | 2021-11-12 06:38 | PC.NURSE ---
Patient taken to CT via stretcher.
--- NOTE | 2021-11-12 08:00 | PC.NURSE ---
all results back. pending further orders.
== END 2021-11-12 10:09 | disposition home or self-care (01) ==
PROVIDERS: Emergency Medicine; Emergency Provider Emergency Medicine; PCP Family Medicine
DX: R55 Syncope and collapse (principal); Z87.891 Personal history of nicotine dependence
CPT/HCPCS: 36415; 71275; 74174; 80053; 81003; 81025; 85025; 93005; 96361; 96374; 99284; J0131; J7030; Q9967

== ENCOUNTER 2021-11-14 15:29 | Outpatient (CLI) | payer BC, MEDICARE, SELFPAY ==
--- NOTE | ~2021-11-14 | MR_ITS ---
EXAMINATION: MR abdomen wo/w con INDICATION: Kidney cyst and abdominal pain TECHNIQUE: Coronal SSFSE ARC, WATER:coronal LAVA-FLEX, Coronal 2D FIESTA FatSat, Axial SSFSE BH ARC, Axial 3D DualEcho BH, Axial SSFSE-IR, Axial DWI b=500, Axial 2D FIESTA FatSat, pre and dynamic postco ntrast Axial LAVA ARC, postcontrast Coronal In and Opposed phase LAVA FLEX COMPARISON: CT, 10/25/2021 CONTRAST: Multihance, 20 cc FINDINGS: There is a small sliding hiatal hernia. The gallbladder is surgically absent. There is mild enlargement of the common bile duct and central intrahepatic ducts which is likely due to post deonna cystectomy state. The liver, spleen, pancreas, and adrenal glands are normal. There is a 1.4 cm simpl e cyst of the left kidney. The right kidney is unremarkable. There are no pathologically enlarged abd ominal lymph nodes. There are no dilated loops of bowel. A moderate volume of colonic stool is presen t. No abnormal enhancement is identified after contrast administration. IMPRESSION: 1. Simple cyst of the left kidney. 2. No MRI correlate for the patient's symptoms. Reviewed, dictated and finalized at location B.
== END 2021-11-14 15:30 | disposition home or self-care (01) ==
PROVIDERS: PCP Family Medicine; Visit Provider Family Medicine
DX: R52 Pain, unspecified (principal); I71.2 Thoracic aortic aneurysm, without rupture; N28.1 Cyst of kidney, acquired
CPT/HCPCS: 74183; A9577

== ENCOUNTER 2022-02-11 00:21 | Day surgery (SDC) | payer BC, MEDICARE, SELFPAY ==
[2022-02-08 15:03] VITALS: BMI 42.4
[2022-02-11 11:30] VITALS: BP 135/81; PULSE 73; RESP 16; TEMP 36.4; O2SAT 99
--- NOTE | 2022-02-11 11:32 | WPDHPUPDATE1 ---
History and Physical Update Update Date/Time: 02/11/22 11:32 History and Physical has been reviewed, including an updated exam of the patient. There are NO changes in the patient's condition. Risks, benefits, and alternatives have been discussed and questions answered. Patient agrees to proceed with procedure.
[2022-02-11] MEDS: LIDOCAINE HCL 1% LOCAL INJ 20 ML VIAL ×2 (11:57→12:15)
--- NOTE | 2022-02-11 12:19 | P.OPB_ITS ---
Procedure Note - Brief Procedure Note - Brief Date of procedure: 02/11/22 Pre-op diagnosis: syncope Recurrent syncope and near syncope Procedure performed: Loop recorder implantation Description of procedure: Brief History of Present Illness: Patient is a very pleasant 46-year-old female with a past medical history significant for palpitations, tachycardia, recurrent near-syncope and syncope unexplained with a past medical history significant psoriatic arthritis, hypertension, KATHY on CPAP, right ventricular enlargement referred for loop recorder implantation for further evaluation of unexplained recurrent near- syncope and syncope. After verbal and written informed consent was obtained from the patient risks, benefits, and alternatives explained in detail the patient agreed to proceed with the plan of care as outlined above. Patient was evaluated at bedside in the [facility] procedure room. Patient was placed the appropriate supine position. Left anterior chest wall was prepped and draped in the usual sterile fashion. Operators in appropriate sterile garb. The left 4th intercostal space was identified and marked. Utilizing approximately 30 cc of 1% subcutaneous lidocaine the left anterior chest wall was then locally anesthetized. After local anesthesia was achieved, 2 fingerbreadths left of the sternum at the 4th intercostal space was again identified and a 1 cm incision was made with the included skin punch tool. Following this with the included introducer, a tract was made subcutaneously at a 45 degree angle from the sternum. The introducer was then inverted 180 degrees and with the included plunger the Medtronic REVEAL LINQ II loop recorder was advanced subcutaneously into position easily and without complication. The plunger was then removed followed by the introducer. Manual pressure was held for approximately 10 min with excellent hemostasis. The device was then interrogated and revealed excellent fidelity and measured at 0.37-0.41 mV. The Medtronic REVEAL LINQ II SN [id number] was implanted without complication. The incision was then approximated and closed using Exofin skin adhesive and additional support by 3 perpendicular steristrips. The incision was then covered with a sterile dressing. Complications: None Implants: Medtronic LINQ II serial # [id number] Surgeon: Alfredo Melton MD Findings: Successful implantation of Medtronic LINQ II without complication.
== END 2022-02-11 13:00 ==
LOC: ANHCATHLAB 00:23 → ANHCARD 11:26 → ANHCATHLAB 13:18
PROVIDERS: PCP Family Medicine; Visit Provider Internal Medicine Cardiovascular Disease
PROC: (CPT 33285; principal; 2022-02-11 11:30)
DX: R55 Syncope and collapse (principal); I10 Essential (primary) hypertension; G47.33 Obstructive sleep apnea (adult) (pediatric); L40.50 Arthropathic psoriasis, unspecified; R07.89 Other chest pain; R06.02 Shortness of breath; E78.2 Mixed hyperlipidemia; Z87.891 Personal history of nicotine dependence
CPT/HCPCS: 33285; C1764

== ENCOUNTER → 2022-02-27 09:57 | Outpatient (CLI) | payer BC, MEDICARE, SELFPAY ==
--- NOTE | ~2022-02-27 | CT_ITS ---
EXAMINATION: CT brain wo/w con DATE: 02/27/2022 10:21 INDICATION: Syncope. Confusion. TECHNIQUE: Computed tomography (CT) of the head was performed without and with 100 mL Omnipaque 350 i ntravenous contrast. The mA was adjusted according to patient size. Iterative reconstruction techniqu e was employed. The dose-length product was 1199.14 mGy-cm. COMPARISON: None FINDINGS: There is no intracranial hemorrhage, acute infarction, or abnormal intracranial mass lesion . The ventricles are normal in size. The orbits are normal. The paranasal sinuses are clear. The mast oid air cells are normal. IMPRESSION: 1. Normal brain. Reviewed, dictated and finalized at location B. IMPRESSION: 1. Normal brain.
== END ==
PROVIDERS: PCP Family Medicine; Visit Provider Family Medicine
DX: R41.0 Disorientation, unspecified (principal)
CPT/HCPCS: 70470; Q9967

== ENCOUNTER 2022-03-05 12:55 | Outpatient (CLI) | payer BC, MEDICARE, SELFPAY ==
--- NOTE | ~2022-03-05 | NM_ITS ---
EXAMINATION: NM pulmonary perfusion DATE: 03/05/2022 14:00 INDICATION: Shortness of breath. Chest pain. Right ventricular enlargement. TECHNIQUE: 5.3 mCi mCi Tc-99m MAA by intravenous route. Scintigraphic images of the chest were obtai erlinda. COMPARISON: Chest radiograph dated 03/05/2022 FINDINGS: There is relatively homogeneous perfusion throughout the lungs. No perfusion defects identified. IMPRESSION: 1. Low probability for pulmonary embolism. Reviewed, dictated and finalized at location A.
--- NOTE | ~2022-03-05 | XR_ITS ---
EXAMINATION: XR chest 2V 03/05/2022 13:47 INDICATION: Right ventricular enlargement PROCEDURE: 2 view chest COMPARISON: Comparison to multiple prior studies sequentially, with oldest reviewed study dated 01/28. FINDINGS: The lungs are clear. The cardiomediastinal silhouette is within normal limits. There are no pleural effusions. There is no pneumothorax suspected. IMPRESSION: 1: NO ACUTE CARDIOPULMONARY DISEASE. Reviewed, dictated and finalized at location B.
== END 2022-03-05 12:56 | disposition home or self-care (01) ==
PROVIDERS: PCP Orthopaedic Surgery; Visit Provider Internal Medicine Cardiovascular Disease
DX: I51.7 Cardiomegaly (principal); R55 Syncope and collapse; R07.89 Other chest pain
CPT/HCPCS: 71046; 78580; A9540

== ENCOUNTER → 2022-03-08 13:45 | Outpatient (CLI) | payer BC, MEDICARE, SELFPAY ==
--- NOTE | ~2022-03-08 | CT_ITS ---
EXAMINATION: CT knee LT wo con DATE: 03/08/2022 13:58 INDICATION: Left knee pain. TECHNIQUE: Computed tomography (CT) of the left knee was performed without intravenous contrast. Auto mated exposure control and iterative reconstruction technique were employed. The dose-length product was 233.47 mGy-cm. COMPARISON: Radiographs 02/28/2022 FINDINGS: There is a total left knee arthroplasty in near-anatomic alignment with patellar resurfacin g. No periprosthetic lucency to suggest loosening or infection. No fracture. There is a small knee diego int effusion. IMPRESSION: 1. Total left knee arthroplasty in near-anatomic alignment. 2. Small left knee joint effusion. Reviewed, dictated and finalized at location A.
== END ==
PROVIDERS: PCP Family Medicine; Visit Provider Orthopaedic Surgery
DX: M25.562 Pain in left knee (principal); Z96.652 Presence of left artificial knee joint; M25.462 Effusion, left knee
CPT/HCPCS: 73700

== ENCOUNTER 2022-04-02 08:00 | Outpatient (RCR) | payer BC, MEDICARE, SELFPAY ==
--- NOTE | 2022-03-06 17:09 | PTOPEVAL1 ---
Assessment and note entered by Leonard Collado, PT Evaluation Information Assessment Status Evaluation Diagnosis Pain in left knee Subjective Information Patient reports that her L knee and R knee both will give out on her. 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 Reported Pain Level Pain Score 4: Self Report Assessment PT Clinical Summary Corrie is a 47 year old female coming into the clinic with L knee pain. She walks in with a cane secondary to her R knee. Patient presents with pain, weakness in the L hip and knee, along with slight increased extension on the L knee. Physical therapy should be able to work on strengthening her L LE which should improve functional mobility, stability, and modalities will be used if needed to help with pain control. Plan of Care Interventions Gait Training,Manual Therapy,Neuro Re-education, Patient/Caregiver Education,Therapeutic Activities, Therapeutic Exercise PT Services Indicated Yes Treatment Frequency and 2x/wk for 6 weeks Duration These treatments will address the objective and functional deficits as defined above. The patient will be advanced safely and appropriately in order for the patient to progress towards his/her prior level of function. Additional exercises will be introduced and as well as a comprehensive home exercise program upon discharge, if needed, ?to ensure carryover of functional gains achieved in the clinic. This treatment plan has been reviewed and agreement upon by the patient.
--- NOTE | 2022-03-22 11:39 | PCPTNOTE ---
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
--- NOTE | 2022-03-29 08:42 | PCPTNOTE ---
Patient canceled due to child having covid.
--- NOTE | 2022-04-09 08:29 | PCPTNOTE ---
Patient canceled this date per request, no reason given.
--- NOTE | 2022-04-11 08:00 | PCPTNOTE ---
Patient reports she has to cancel because she is ill.
--- NOTE | 2022-04-17 07:56 | PCPTNOTE ---
Patient called & cancelled scheduled re-evaluation this date due to having the flu. She states on the phone she will call back to reschedule.
--- NOTE | 2022-06-03 08:50 | PTOPDC ---
Assessment and note entered by Abran Echevarria, PT, DPT Evaluation Information Assessment Status Discharge - Pt Not Present Diagnosis Pain in left knee Subjective Information Pt called and cancelled her appointment on and 04/17/22 d/t being sick. Spoke with the patient on the phone then and she stated she would call back to reschedule when she was feeling better. She has not called since. Assessment PT Clinical Summary Corrie completed 5 visits of therapy from 03/06/22 to 04/02/22, she has not returned since. She will be discharged at this time d/t per attendance polity. If she needs additional therapy at a later time, she will need a new order. Plan of Care Treatment Frequency and to be discharged Duration
== END 2022-06-04 11:16 | disposition home or self-care (01) ==
LOC: ANHGOSHPT 08:00
PROVIDERS: PCP Orthopaedic Surgery; Visit Provider Orthopaedic Surgery
DX: M25.562 Pain in left knee (principal)
CPT/HCPCS: 97110; 97140; 97161; 97530

== ENCOUNTER 2022-04-07 10:38 | Emergency (ER) | payer BC, MEDICARE, SELFPAY ==
--- NOTE | ~2022-04-07 | XR_ITS ---
XR shoulder LT min 2V DATE: 04/07/2022 11:28 INDICATION: Shoulder injury, pain TECHNIQUE: 3 views COMPARISON: 09/03/2018 FINDINGS: No fracture or dislocation, periosteal reaction or bone destruction or abnormal soft tissue calcification. Normal alignment at the acromioclavicular and glenohumeral joints. Electronic monitor device overlies the lower left anterior chest. IMPRESSION: No significant abnormality of left shoulder Reviewed, dictated and finalized at location A. [employer]
[2022-04-07 11:10] VITALS: BP 115/89; PULSE 101; RESP 16; TEMP 37.1; O2SAT 97
--- NOTE | 2022-04-07 11:53 | ED.URI ---
HPI - URI/Sore Throat General Chief Complaint: Upper Respiratory Infection Stated Complaint: injury/other Time Seen by Provider: 04/07/22 11:15 Source: patient Mode of arrival: ambulatory Limitations: no limitations History of Present Illness HPI Narrative: Corrie is a 47-year-old female patient presenting to the clinic today with complaints of fever cough, cough, congestion, body aches, left shoulder pain, and right-sided back pain. She reports that she was climbing up a hill yesterday and fell down and injured her left shoulder and the lower back MD elicited complaint: sore throat and nasal congestion Related Data Home Medications Medication Instructions Recorded Confirmed ropinirole 1 mg tablet 1 mg PO HS 05/09/19 03/12/22 calcium carbonate 600 mg calcium 600 mg PO TID 06/06/20 03/12/22 (1,500 mg) tablet (Calcium) pantoprazole 20 mg tablet,delayed 40 mg PO QAM 06/06/20 03/12/22 release aripiprazole 10 mg tablet 5 mg PO DAILY 12/21/21 03/12/22 cyclobenzaprine 5 mg tablet See Rx Instructions PO .COMPLEX 02/06/22 03/12/22 PRN Insomnia methotrexate sodium 5 mg tablet 25 mg PO WEEKLY 02/06/22 03/12/22 cholecalciferol (vitamin D3) 125 125 mcg PO DAILY 02/08/22 03/12/22 mcg (5,000 unit) tablet (Vitamin D3) divalproex 500 mg tablet,extended 500 mg PO BID 02/08/22 03/12/22 release 24 hr folic acid 1 mg tablet 1 mg PO DAILY 02/08/22 03/12/22 multivitamin 1 tablet PO DAILY 02/08/22 03/12/22 zaleplon 5 mg capsule 5 mg PO HS 02/08/22 03/12/22 Allergies Allergy/AdvReac Type Severity Reaction Status Date / Time amoxicillin Allergy Severe Hives Verified 03/12/22 08:13 Penicillins Allergy Severe Hives Verified 03/12/22 08:13 adhesive Allergy Intermediate BLISTERS/RA Verified 03/12/22 08:13 SH latex Allergy Intermediate Rash Verified 03/12/22 08:13 azithromycin AdvReac Mild Nausea and Verified 03/12/22 08:13 Vomiting ibuprofen AdvReac Mild Heartburn Verified 03/12/22 08:13 Review of Systems Review of Systems: Pertinent positives per HPI. Patient denies any rash, headache, visual changes, dizziness, shortness of breath, chest pain, palpitations, nausea, vomiting, diarrhea, constipation, abdominal pain, or any urinary issues. [facility] Past Medical History Medical History Acid reflux Anemia Anxiety Arthritis Arthritis of knee, right Crohn's proctitis She notes it has been labelled on the Crohn's umbrella, but denies actually having Crohn's Cyst of ovary Depression Endometriosis Enteropathic arthritis Fibroids Fibromyalgia (~2008) Heart disease Hiatal hernia IBS (irritable bowel syndrome) Insomnia Interstitial cystitis Psoriatic arthritis (~2019) Restless leg syndrome UTI (urinary tract infection) Vitamin D deficiency Surgical History Surgical History History of bladder surgery History of breast surgery right - excision abscess 2019 History of cholecystectomy 2005 History of dilation and curettage 2008 - 2009 multiple History of gastric bypass 2014 History of left knee replacement February 2020 - [place] History of parotid gland excision benign tumour - 2010 History of repair of rectocele 2019 History of wisdom tooth extraction S/P endometrial ablation S/P partial hysterectomy Thyroid tumor, benign cyst excision - 1993 Family History Family History Father Hypertension Family history of elevated blood lipids Family history of arthritis Mother Hypertension Family history of elevated blood lipids Family history of osteoporosis Family history of malignant neoplasm of breast Grandparent Family history of osteoporosis Hypertension Family history of Alzheimer's disease Family history of emphysema Family history of malignant neoplasm of ovary Sibling Hypertension Family history of arthritis
== END 2022-04-07 12:04 | disposition home or self-care (01) ==
PROVIDERS: Emergency Provider Nurse Practitioner Family; PCP Family Medicine
DX: J06.9 Acute upper respiratory infection, unspecified (principal); B34.9 Viral infection, unspecified; S46.911A Strain of unspecified muscle, fascia and tendon at shoulder and upper arm level, right arm, initial encounter; S39.012A Strain of muscle, fascia and tendon of lower back, initial encounter; W17.81XA Fall down embankment (hill), initial encounter; Z87.891 Personal history of nicotine dependence; K21.9 Gastro-esophageal reflux disease without esophagitis; K50.90 Crohn's disease, unspecified, without complications; N80.9 Endometriosis, unspecified; M79.7 Fibromyalgia; L40.50 Arthropathic psoriasis, unspecified; G25.81 Restless legs syndrome; Z98.84 Bariatric surgery status; Z96.652 Presence of left artificial knee joint
CPT/HCPCS: 73030; 87804; 99213; G0463

== ENCOUNTER 2022-04-08 07:43 | Outpatient (CLI) | payer BC, MEDICARE, SELFPAY ==
--- NOTE | 2022-04-23 18:17 | WPDSLEEPSTUD ---
Sleep Study Date of Study: 04/08/22 Ordering Provider: Joslyn Yoon DO Interpreting Physician: Joslyn Yoon DO Sleep Study Type: CPAP Titration Height: 1.78 m Weight: 136.078 kg Body Mass Index: 43.0 Neck Circumference (inches): 16.5 [place]: 18 Reason for Sleep Study Unrefreshing sleep despite being compliant with PAP Therapy. Sleep History The patient is a 47-year-old female with GERD, anxiety, depression, endometriosis, fibromyalgia, irritable bowel syndrome, insomnia, interstitial cystitis, psoriatic arthritis, restless leg syndrome, history of tobacco abuse and KATHY on CPAP that had a Pap titration study ordered due to unrefreshing sleep despite being compliant with PAP therapy. The patient occasionally awakens from sleep short of breath. She denies awakening at night with heartburn, belching or cough. She constantly snores loud enough that others complain. She constantly has trouble sleeping when she has a cold. She occasionally wakes up gasping for air throughout the night. She occasionally has breathing problems at night observed by herself or others. She denies sweating excessively at night. She frequently has heart palpitations or irregular heartbeats during the night. She frequently falls asleep during the day but never while driving. She denies experiencing loss of muscle tone when extremely emotional. She denies having trouble at school or work due to sleepiness. She frequently feels unable to move while waking up or falling asleep. She occasionally experiences vivid dreamlike scenes upon awakening or falling asleep. She denies feeling afraid of going to sleep. She denies having nightmares and denies remembering her dreams. She frequently has thoughts racing through her mind. She denies feeling sad or depressed. She frequently has anxiety. She frequently has muscular tension. She frequently notices parts of her body jerk. She frequently kicks during the night. She constantly has crawling and aching feelings in her legs and constantly has leg pain during the night. She constantly grinds her teeth during sleeping constantly awakens with morning jaw pain. She is constantly bothered by pain during the day and constantly awakened by pain during the night. She constantly wakes up feeling stiff in the morning. She constantly wakes up with sore achy muscles. She constantly wakes up with pain in the neck, spine or other joints. She goes to bed at 10:00 p.m. on weekdays and 11:00 p.m. on the weekends. She is able to fall asleep within 5 minutes. She wakes up 5-10 times throughout the night for unknown reasons. He can take over an hour for her to fall back asleep. She wakes up at midnight on weekdays and at 2:00 a.m. on the weekends. She typically gets 2-4 hours of sleep per night. She will stay in bed for 5-10 minutes after waking up in the morning. She currently lives with her and 2 children. She does not consume any caffeinated beverages within 2 hours of bedtime. She does not engage in physical exercise before bedtime. She denies reading and watching television before falling asleep. She will take naps in the afternoon or the evening but they are not refreshing. She drinks 5 caffeinated beverages per day. She quit smoking cigarettes 20 years ago. She denies alcohol use. She does use marijuana. [facility] Past Medical History Medical History Acid reflux Anemia Anxiety Arthritis Arthritis of knee, right Crohn's proctitis She notes it has been labelled on the Crohn's umbrella, but denies actually having Crohn's Cyst of ovary Depression Endometriosis Enteropathic arthritis Fibroids Fibromyalgia (~2008) Heart disease Hiatal hernia IBS (irritable bowel syndrome) Insomnia Interstitial cystitis Psoriatic arthritis (~2019) Restless leg syndrome UTI (urinary tract infection) Vitamin D deficiency Surgical History Surgical Hist
[2022-04-23 18:37] VITALS: BMI 43.0
== END 2022-04-09 05:03 | disposition home or self-care (01) ==
PROVIDERS: PCP Family Medicine; Visit Provider Family Medicine
DX: G47.33 Obstructive sleep apnea (adult) (pediatric) (principal); G25.81 Restless legs syndrome; K21.9 Gastro-esophageal reflux disease without esophagitis; E55.9 Vitamin D deficiency, unspecified; Z87.891 Personal history of nicotine dependence
CPT/HCPCS: 95811

== ENCOUNTER 2022-05-21 12:50 | Outpatient (CLI) | payer BC, MEDICARE, SELFPAY ==
[2022-05-21 19:51] LABS: Alanine Aminotransferase 18 U/L (6-35); Alkaline Phosphatase 57 U/L (38-126); Anion Gap 3 mmol/L (8-16); Aspartate Amino Transferase 34 U/L (14-36); Bilirubin,Total 0.5 mg/dL (0.2-1.3); Blood Urea Nitrogen 17 mg/dL (7-17); Carbon Dioxide 32 mmol/L (22-30); Chloride 104 mmol/L (98-107); Cholesterol 252 mg/dL (0-200); Estimated Glomerular Filt Rate > 60; Glucose 97 mg/dL (65-110); HDL Direct 87 mg/dL; Potassium 4.6 mmol/L (3.4-5.0); Sodium 139 mmol/L (137-145); Triglycerides 101 mg/dL (<150)
[2022-05-21 20:02] LABS: LDL Cholesterol Direct 120 mg/dL
== END 2022-05-21 12:51 | disposition home or self-care (01) ==
LOC: ANHGOSHLAB 12:52
PROVIDERS: PCP Family Medicine; Visit Provider Family Medicine
DX: E78.5 Hyperlipidemia, unspecified (principal); E04.9 Nontoxic goiter, unspecified; Z79.899 Other long term (current) drug therapy
CPT/HCPCS: 36415; 80053; 80061; 84443

== ENCOUNTER → 2022-05-23 15:43 | Outpatient (CLI) | payer BC, MEDICARE, SELFPAY ==
--- NOTE | ~2022-05-23 | US_ITS ---
EXAMINATION: US thyroid DATE: 05/23/2022 15:58 INDICATION: Abnormal thyroid function tests. TECHNIQUE: Multiple ultrasound images of the thyroid were obtained. COMPARISON: Ultrasound 09/09/2011 FINDINGS: The right thyroid lobe measures 6.3 x 1.9 x 1.6 cm. The left thyroid lobe measures 4.4 x 1.7 x 1.2 c m. In the right thyroid lobe, there is a 2.7 cm solid, isoechoic, wider than tall nodule with smooth margin without echogenic foci (TI-RADS TR3), stable from 09/09/11, likely benign. In the left thyroid lobe, there is a 4 mm nodule. IMPRESSION: 1. Thyroid nodules, likely not clinically significant. No follow-up is needed. Reviewed, dictated and finalized at location A. DEVELOPER
== END ==
PROVIDERS: PCP Family Medicine; Visit Provider Family Medicine
DX: E04.1 Nontoxic single thyroid nodule (principal)
CPT/HCPCS: 76536

== ENCOUNTER 2022-05-24 05:44 | Emergency (ER) | payer BC, MEDICARE, SELFPAY ==
--- NOTE | ~2022-05-24 | XR_ITS ---
EXAMINATION: XR chest 2V DATE: 05/24/2022 07:04 INDICATION: Shortness of breath. TECHNIQUE: Frontal and lateral views of the chest were obtained. COMPARISON: Chest 2 views 03/05/2022 FINDINGS: The lung volumes are small. There is mild atelectasis at the lung bases. No pleural effusio n or pneumothorax. The heart size is normal. There is an electronic implant in left anterior chest wa ll. Surgical clips in the right upper quadrant are likely from cholecystectomy. IMPRESSION: 1. Small lung volumes with mild atelectasis at the lung bases. Reviewed, dictated and finalized at location A. S WASHER
--- NOTE | ~2022-05-24 | CT_ITS ---
EXAMINATION: CTA chest PE abdomen pel DATE: 05/24/2022 07:50 INDICATION: Right flank pain. Shortness of breath and chest pain. TECHNIQUE: Computed tomography angiography (CTA) of the chest was performed with 100 mL Omnipaque-350 intravenous contrast timed to evaluate the pulmonary arteries. Coronal maximum intensity projection 3D-reconstructions were created by the technologist. Computed tomography (CT) of the abdomen and pelv is was performed with intravenous contrast. Automated exposure control and iterative reconstruction t echnique were employed. The dose-length product was 2389.00 mGy-cm. COMPARISON: CT abdomen 11/12/2021 FINDINGS: CTA chest: The lungs demonstrate mild atelectasis. No pleural effusion. The heart size is normal. No pericardial effusion. There is no pulmonary embolus. There is electronic implant in left anterior [address] wall. There is mild thoracic spondylosis. CT abdomen and pelvis: There is chronic mild intrahepatic bile duct dilatation, likely secondary to c holecystectomy. There are surgical changes of the stomach. There is a small sliding hiatal hernia. Th e spleen, pancreas, adrenal glands, and right kidney are normal. There is a 1.4 cm cyst in left kidne y. There are no dilated loops of bowel. The appendix is normal. There are no pathologically enlarged lymph nodes. There is no free intraperitoneal fluid. There is a 3.2 cm cyst in right ovary. There is moderate lumbar spondylosis. IMPRESSION: 1. No pulmonary embolus. 2. Small sliding hiatal hernia. 3. 3.2 cm cyst in right ovary, likely a follicular cyst. Reviewed, dictated and finalized at location A. PIERCER
[2022-05-24 05:48] VITALS: BP 159/112; PULSE 112; RESP 20; TEMP 36.8; O2SAT 99
--- NOTE | 2022-05-24 06:49 | ECG_ITS ---
Measurements Intervals [place] Rate: 110 P: 28 [place]: 163 QRS: -2 QRSD: 95 T: 8 QT: 336 QTc: 456 Interpretive Statements SINUS TACHYCARDIA INCOMPLETE RIGHT BUNDLE BRANCH BLOCK DELAYED PRECORDIAL R/S TRANSITION BORDERLINE T WAVE ABNORMALITY- INFERIOR LEADS BASELINE ARTIFACT- I, II, III, AVR, AVL, AVF ABNORMAL ECG COMPARED TO ECG 11/12/2021 05:17:37 SINUS TACHYCARDIA NOW PRESENT Electronically Signed On 05-24-2022 8:07:28 SALES PROJECT ENGINEER by Earl Leon D.O.
[2022-05-24 06:51] LABS: Basophils Percent Auto 0.2 % (0.2-1.2); Eosinophils Absolute Auto 0.1 K/mm3 (0-0.3); Eosinophils Percent Auto 0.3 % (0-4.4); Hematocrit 45.5 % (37.0-47.0); Hemoglobin 14.9 g/dL (12.0-15.0); Immature Granulocyte Absolute 0.07 K/mm3 (0.00-0.031); Immature Granulocyte Percent A 0.4 % (0-0.5); Lymphocytes Absolute Auto 2.72 K/mm3 (0.9-3.2); Lymphocytes Percent Auto 15.4 % (18.3-44.2); Mean Corpuscular HGB Conc 32.7 g/dl (32-36); Mean Corpuscular Hemoglobin 31.1 pg (26-34); Mean Platelet Volume 10.5 fl (7.4-10.4); Monocytes Absolute Auto 1.5 K/mm3 (0.1-0.6); Monocytes Percent Auto 8.4 % (2.6-8.5); Neutrophils Absolute Auto 13.3 K/mm3 (1.3-6.7); Neutrophils Percent Auto 75.3 % (45.5-73.1); Platelet Count Result 349 k/mm3 (150-375); Red Blood Count 4.79 M/mm3 (4.2-5.4); Red Cell Distribution Width 14.9 % (11.5-14.5); White Blood Count 17.7 K/mm3 (4.5-10.0)
[2022-05-24 07:01] LABS: Alanine Aminotransferase 17 U/L (6-35); Albumin Level 4.2 g/dL (3.5-5.1); Alkaline Phosphatase 55 U/L (38-126); Anion Gap 6 mmol/L (8-16); Aspartate Amino Transferase 26 U/L (14-36); Bilirubin,Total 0.5 mg/dL (0.2-1.3); Blood Urea Nitrogen 18 mg/dL (7-17); Calcium 8.6 mg/dL (8.4-10.2); Carbon Dioxide 27 mmol/L (22-30); Chloride 101 mmol/L (98-107); Estimated Glomerular Filt Rate > 60; Glucose 106 mg/dL (65-110); Potassium 4.1 mmol/L (3.4-5.0); Sodium 134 mmol/L (137-145)
--- NOTE | 2022-05-24 07:17 | ED.GENADULT ---
HPI - General Adult General Chief complaint: Shortness of Breath/Dyspnea Stated complaint: flank pain Time Seen by Provider: 05/24/22 06:57 History of Present Illness HPI narrative: 47-year-old female patient in the emergency department for evaluation of right flank pain that is causing subsequent shortness of breath. Patient states she had recently been diagnosed with pneumonitis by an outpatient x-ray. Patient states symptoms midnight she had worsening of the right flank pain. Radiating to her right upper quadrant. Patient does have a prior history of cholecystectomy. Patient denies any prior history of kidney stones and denies any current hematuria. Patient denies any falls or injuries. Patient denies any nausea vomiting or diarrhea. Related Data Home Medications Medication Instructions Recorded Confirmed ropinirole 1 mg tablet 1 mg PO HS 05/09/19 05/21/22 calcium carbonate 600 mg calcium 600 mg PO TID 06/06/20 05/21/22 (1,500 mg) tablet (Calcium) pantoprazole 20 mg tablet,delayed 40 mg PO QAM 06/06/20 05/21/22 release cyclobenzaprine 5 mg tablet See Rx Instructions PO .COMPLEX 02/06/22 05/21/22 PRN Insomnia cholecalciferol (vitamin D3) 125 125 mcg PO DAILY 02/08/22 05/21/22 mcg (5,000 unit) tablet (Vitamin D3) divalproex 500 mg tablet,extended 500 mg PO BID 02/08/22 05/21/22 release 24 hr folic acid 1 mg tablet 1 mg PO DAILY 02/08/22 05/21/22 multivitamin 1 tablet PO DAILY 02/08/22 05/21/22 aripiprazole 2 mg tablet 2 mg PO DAILY 05/21/22 05/21/22 methotrexate sodium 5 mg tablet 50 mg PO WEEKLY 05/21/22 05/21/22 Allergies Allergy/AdvReac Type Severity Reaction Status Date / Time amoxicillin Allergy Severe Hives Verified 05/21/22 12:00 Penicillins Allergy Severe Hives Verified 05/21/22 12:00 adhesive Allergy Intermediate BLISTERS/RA Verified 05/21/22 12:00 SH latex Allergy Intermediate Rash Verified 05/21/22 12:00 zolpidem [From Ambien] AdvReac Intermediate sleep Verified 05/21/22 12:04 walking azithromycin AdvReac Mild Nausea and Verified 05/21/22 12:00 Vomiting ibuprofen AdvReac Mild Heartburn Verified 05/21/22 12:00 Review of Systems Review of Systems: CONSTITUTIONAL: Denies fever, chills, or sweats. EYES: Denies visual changes, redness, or discharge. ENT: Denies rhinorrhea, congestion, sore throat, or otalgia. CARDIOVASCULAR: See HPI RESPIRATORY: Denies cough or dyspnea. GASTROINTESTINAL: See HPI GENITOURINARY: See HPI SKIN: Denies rash or itching. MUSCULOSKELETAL: Denies back pain, joint pain, or myalgia. NEUROLOGIC: Denies headache, numbness, or weakness. [facility] Past Medical History Medical History Acid reflux Anemia Anxiety Arthritis Arthritis of knee, right Crohn's proctitis She notes it has been labelled on the Crohn's umbrella, but denies actually having Crohn's Cyst of ovary Depression Endometriosis Enteropathic arthritis Fibroids Fibromyalgia (~2008) Heart disease Hiatal hernia IBS (irritable bowel syndrome) Insomnia Interstitial cystitis Psoriatic arthritis (~2019) Restless leg syndrome UTI (urinary tract infection) Vitamin D deficiency Surgical History Surgical History History of bladder surgery History of breast surgery right - excision abscess 2019 History of cholecystectomy 2005 History of dilation and curettage 2008 - 2009 multiple History of gastric bypass 2015 History of left knee replacement February 2020 - [place] History of parotid gland excision benign tumour - 2010 History of repair of rectocele 2019 History of wisdom tooth extraction S/P endometrial ablation S/P partial hysterectomy Thyroid tumor, benign cyst excision - 1993 Family History Family History Father Hypertension Family history of elevated blood lipids Family history of arthritis Mother Hypertension Fam
[2022-05-24] MEDS: HYDROmorphone HCL INJ (*CRX) 1 MG/ML SYR IV PUSH (07:40)
[2022-05-24] MEDS: SODIUM CHLORIDE 0.9% IV 1,000 ML 999 ML IV CONT (07:41)
[2022-05-24 07:46] LABS: Appearance Urine Clear (Clear); Bilirubin Urine Negative (Negative); Blood Urine Negative (Negative); Color Urine Yellow (Yellow); Glucose Urine UA Negative (Negative); Ketones Urine Trace mg/dL (Negative); Leukocyte Esterase Ur Trace LEU/UL (Negative); Nitrate Urine Negative (Negative); Protein Urine Negative (Negative); Urobilinogen Urine 0.2 mg/dL (<2.0)
[2022-05-24 07:54] LABS: Bacteria Urine Trace /hpf; Mucus Urine Few /lpf; RBC Urine 0-2 /hpf (0-2); Squamous Epithelial Cell Urine Few /hpf (Few); WBC Urine 0-3 /hpf
[2022-05-24 07:55] LABS: Add Urine Microscopic? YES
[2022-05-24 08:10] VITALS: TEMP 36.9
[2022-05-24 08:47] VITALS: BP 140/91; PULSE 101; RESP 20; O2SAT 99
[2022-05-24] MEDS: KETOROLAC 15 MG/ML VIAL (*BKC) IV PUSH (09:44)
[2022-05-24] MEDS: AZITHROMYCIN 250 MG TABLET 500 MG PO (09:45)
[2022-05-24 09:48] VITALS: BP 130/81; PULSE 99; RESP 16; TEMP 36.9; O2SAT 99
== END 2022-05-24 10:09 | disposition home or self-care (01) ==
PROVIDERS: Emergency Provider Emergency Medicine; PCP Family Medicine
DX: R07.89 Other chest pain (principal); I51.9 Heart disease, unspecified; L40.50 Arthropathic psoriasis, unspecified; N80.9 Endometriosis, unspecified; E55.9 Vitamin D deficiency, unspecified; K58.9 Irritable bowel syndrome, unspecified; K21.9 Gastro-esophageal reflux disease without esophagitis; M79.7 Fibromyalgia; M17.11 Unilateral primary osteoarthritis, right knee; F41.9 Anxiety disorder, unspecified; Z96.652 Presence of left artificial knee joint; Z90.711 Acquired absence of uterus with remaining cervical stump; Z98.84 Bariatric surgery status; Z86.2 Personal history of diseases of the blood and blood-forming organs and certain disorders involving the immune mechanism; Z87.440 Personal history of urinary (tract) infections; Z87.891 Personal history of nicotine dependence; N83.201 Unspecified ovarian cyst, right side; K44.9 Diaphragmatic hernia without obstruction or gangrene; R00.0 Tachycardia, unspecified; I45.10 Unspecified right bundle-branch block; R94.31 Abnormal electrocardiogram [ECG] [EKG]
CPT/HCPCS: 36415; 71046; 71275; 74177; 80053; 81001; 85025; 87040; 93005; 96361; 96374; 96375; 99284; A9270; J1170; J1885; J7030; Q9967

== ENCOUNTER 2022-05-28 11:34 | Outpatient (CLI) | payer BC, MEDICARE, SELFPAY ==
[2022-05-28 20:42] LABS: Hematocrit 41.3 % (37.0-47.0); Hemoglobin 13.2 g/dL (12.0-15.0); Mean Corpuscular Hemoglobin 30.6 pg (26-34); Mean Corpuscular Volume 95.6 fl (80-100); Mean Platelet Volume 11.2 fl (7.4-10.4); Platelet Count Result 358 k/mm3 (150-375); Red Blood Count 4.32 M/mm3 (4.2-5.4); Red Cell Distribution Width 14.6 % (11.5-14.5)
== END 2022-05-28 11:35 | disposition home or self-care (01) ==
LOC: ANHGOSHLAB 11:36
PROVIDERS: PCP Family Medicine; Visit Provider Family Medicine
DX: D72.829 Elevated white blood cell count, unspecified (principal)
CPT/HCPCS: 36415; 85027

== ENCOUNTER 2022-05-31 13:41 | Emergency (ER) | payer BC, MEDICARE, SELFPAY ==
[2022-05-31] VITALS (25 sets, daily range): BP systolic 113–133; BP diastolic 75–92; PULSE 78–122; RESP 12–18; TEMP 36.1; O2SAT 95–100
--- NOTE | ~2022-05-31 | CT_ITS ---
EXAMINATION: CT abdomen pelvis w con DATE: 05/31/2022 16:04 INDICATION: Right upper quadrant and right lower quadrant abdominal pain, tenderness TECHNIQUE: Computed tomography (CT) of the abdomen and pelvis was performed with 100 CC Omnipaque 350 intravenous contrast. Automated exposure control and iterative reconstruction technique were employe d. Exam dose: 1714.79 mGy-cm total exam DLP. COMPARISON: 05/24/2022 CTA chest abdomen pelvis FINDINGS: There is atelectasis at the lung bases and small right pleural effusion. Heart size is with in normal range. No pericardial effusion. Small sliding hiatal hernia. Postoperative change of the stomach. Status post cholecystectomy. No hepatic, splenic, pancreatic, and adrenal space-occupying mass lesion. No significant dilatation of bile or pancreatic ducts. Probable 1.4 cm left renal cyst. The kidneys a re otherwise unremarkable. No urinary tract calculus or hydroureteronephrosis. The urinary bladder is unremarkable. Status post hysterectomy. Normal caliber of the abdominal aorta. No intraperitoneal or retroperitoneal or pelvic mass lesion or adenopathy or ascites. Approximately 3 cm right ovarian cystic lesion. No bowel obstruction or intraperitoneal free air. Small fat-containing umbilical hernia. Degenerative spurring of the thoracic spine. Mild degenerative change of the lumbar spine. No suspici ous osteolytic or osteoblastic lesions are noted. IMPRESSION: Small sliding hiatal hernia Postoperative change of the stomach Status post cholecystectomy Status post hysterectomy Probable 1.4 cm left renal cyst 3 cm right ovarian nonspecific cystic lesion Reviewed, dictated and finalized at Location A. Reviewed, dictated and finalized at location B. ARE PROVIDER
--- NOTE | ~2022-05-31 | XR_ITS ---
EXAMINATION: XR chest 2V DATE: 05/31/2022 14:41 INDICATION: Midsternal chest pain. Shortness of breath. TECHNIQUE: Frontal and lateral views of the chest were obtained. COMPARISON: Chest 2 views 05/24/2022, chest CT 05/24/2022 FINDINGS: There is mild atelectasis in the lower lung zones. No pleural effusion or pneumothorax. The heart size is normal. There is an electronic implant in left anterior chest wall. Surgical clips in the right upper quadrant are likely from cholecystectomy. IMPRESSION: 1. Mild atelectasis in the lower lung zones. Reviewed, dictated and finalized at location A. ICE NURSE PRACTITIONER
--- NOTE | 2022-05-31 13:53 | ECG_ITS ---
Measurements Intervals [place] Rate: 116 P: 39 [place]: 169 QRS: -11 QRSD: 92 T: 24 QT: 325 QTc: 452 Interpretive Statements SINUS TACHYCARDIA INCOMPLETE RIGHT BUNDLE BRANCH BLOCK DELAYED PRECORDIAL R/S TRANSITION BASELINE ARTIFACT- I, III, AVL ABNORMAL ECG COMPARED TO ECG 05/24/2022 06:54:44 NO SIGNIFICANT CHANGES Electronically Signed On 05-31-2022 20:32:52 TAXICAB COORDINATOR by Earl Leon D.O.
[2022-05-31 14:36] LABS: Basophils Absolute Auto 0.1 K/mm3 (0.0-0.1); Basophils Percent Auto 0.4 % (0.2-1.2); Eosinophils Absolute Auto 0.4 K/mm3 (0-0.3); Eosinophils Percent Auto 2.8 % (0-4.4); Hematocrit 43.3 % (37.0-47.0); Hemoglobin 13.9 g/dL (12.0-15.0); Immature Granulocyte Absolute 0.07 K/mm3 (0.00-0.031); Immature Granulocyte Percent A 0.5 % (0-0.5); Lymphocytes Absolute Auto 5.15 K/mm3 (0.9-3.2); Lymphocytes Percent Auto 39.3 % (18.3-44.2); Mean Corpuscular HGB Conc 32.1 g/dl (32-36); Mean Corpuscular Hemoglobin 30.5 pg (26-34); Mean Platelet Volume 10.4 fl (7.4-10.4); Monocytes Absolute Auto 0.8 K/mm3 (0.1-0.6); Monocytes Percent Auto 6.2 % (2.6-8.5); Neutrophils Absolute Auto 6.7 K/mm3 (1.3-6.7); Neutrophils Percent Auto 50.8 % (45.5-73.1); Platelet Count Result 382 k/mm3 (150-375); Red Blood Count 4.56 M/mm3 (4.2-5.4); Red Cell Distribution Width 14.8 % (11.5-14.5); White Blood Count 13.1 K/mm3 (4.5-10.0)
[2022-05-31 14:45] LABS: INR 0.9; Prothrombin Time 11.3 Seconds (11.1-14.7)
[2022-05-31 14:46] LABS: Alanine Aminotransferase 14 U/L (6-35); Albumin Level 3.8 g/dL (3.5-5.1); Alkaline Phosphatase 50 U/L (38-126); Anion Gap 3 mmol/L (8-16); Aspartate Amino Transferase 23 U/L (14-36); Bilirubin,Total 0.4 mg/dL (0.2-1.3); Blood Urea Nitrogen 17 mg/dL (7-17); Calcium 8.7 mg/dL (8.4-10.2); Carbon Dioxide 34 mmol/L (22-30); Chloride 103 mmol/L (98-107); Estimated CRCL calculation 119 ml/min; Estimated Glomerular Filt Rate > 60; Glucose 95 mg/dL (65-110); Potassium 3.9 mmol/L (3.4-5.0); Sodium 140 mmol/L (137-145)
[2022-05-31 14:48] LABS: Partial Thromboplastin Time 27.1 SECONDS (22.3-36.8)
--- NOTE | 2022-05-31 15:32 | ED.SOB ---
HPI - SOB/Dyspnea General Chief Complaint: Shortness of Breath/Dyspnea Stated Complaint: burning pain in R lung Time Seen by Provider: 05/31/22 14:36 History of Present Illness HPI Narrative: Patient is a 47-year-old female with a history of psoriatic arthritis presenting with right lower chest and right upper quadrant pain. Patient states that her symptoms started approximately 3 weeks ago when she developed a viral URI. Soon after this she developed pleuritic right-sided chest pain with shortness of breath. She was diagnosed with pneumonitis and started on a Z-Alex and prednisone. Unfortunately, the pain continued so she was seen here about a week ago. A CTA was obtained which showed no evidence of pulmonary embolus. Patient states that unfortunately the pain has continued. States that whenever she takes a deep breath it feels like there is bubbling on the right side of her chest. Denies fevers or chills, headache, left-sided chest pain, nausea or vomiting, diarrhea, leg swelling, dysuria. She reports several weeks of cough that is unchanged. Related Data Home Medications Medication Instructions Recorded Confirmed ropinirole 1 mg tablet 1 mg PO HS 05/09/19 05/21/22 calcium carbonate 600 mg calcium 600 mg PO TID 06/06/20 05/21/22 (1,500 mg) tablet (Calcium) pantoprazole 20 mg tablet,delayed 40 mg PO QAM 06/06/20 05/21/22 release cholecalciferol (vitamin D3) 125 125 mcg PO DAILY 02/08/22 05/21/22 mcg (5,000 unit) tablet (Vitamin D3) divalproex 500 mg tablet,extended 500 mg PO BID 02/08/22 05/21/22 release 24 hr folic acid 1 mg tablet 1 mg PO DAILY 02/08/22 05/21/22 multivitamin 1 tablet PO DAILY 02/08/22 05/21/22 aripiprazole 2 mg tablet 2 mg PO DAILY 05/21/22 05/21/22 methotrexate sodium 5 mg tablet 50 mg PO WEEKLY 05/21/22 05/21/22 Allergies Allergy/AdvReac Type Severity Reaction Status Date / Time amoxicillin Allergy Severe Hives Verified 05/31/22 14:21 Penicillins Allergy Severe Hives Verified 05/31/22 14:21 adhesive Allergy Intermediate BLISTERS/RA Verified 05/31/22 14:03 SH latex Allergy Intermediate Rash Verified 05/31/22 14:21 zolpidem [From Ambien] AdvReac Intermediate sleep Verified 05/31/22 14:03 walking azithromycin AdvReac Mild Nausea and Verified 05/31/22 14:21 Vomiting ibuprofen AdvReac Mild Heartburn Verified 05/31/22 14:21 Review of Systems Review of Systems: All systems reviewed & are unremarkable except as noted in HPI and below PMFSH Past Medical History Medical History Acid reflux Anemia Anxiety Arthritis Arthritis of knee, right Crohn's proctitis She notes it has been labelled on the Crohn's umbrella, but denies actually having Crohn's Cyst of ovary Depression Endometriosis Enteropathic arthritis Fibroids Fibromyalgia (~2008) Heart disease Hiatal hernia IBS (irritable bowel syndrome) Insomnia Interstitial cystitis Psoriatic arthritis (~2019) Restless leg syndrome UTI (urinary tract infection) Vitamin D deficiency Surgical History Surgical History History of bladder surgery History of breast surgery right - excision abscess 2019 History of cholecystectomy 2005 History of dilation and curettage 2008 - 2009 multiple History of gastric bypass 2015 History of left knee replacement February 2020 - [place] History of parotid gland excision benign tumour - 2010 History of repair of rectocele 2019 History of wisdom tooth extraction S/P endometrial ablation S/P partial hysterectomy Thyroid tumor, benign cyst excision - 1993 Family History Family History Father Hypertension Family history of elevated blood lipids Family history of arthritis Mother Hypertension Family history of elevated blood lipids Family history of osteoporosis Family history of malignant neoplasm of [place]
[2022-05-31] MEDS: SODIUM CHLORIDE 0.9% IV 1,000 ML 999 ML IV CONT (15:47)
[2022-05-31 15:48] LABS: Lipase 94 U/L (23-300)
[2022-05-31] MEDS: ONDANSETRON INJ 4 MG/2 ML VIAL IV PUSH (15:49)
[2022-05-31] MEDS: HYDROmorphone HCL INJ (*CRX) 1 MG/ML SYR 0.5 MG IV PUSH (15:49)
[2022-05-31 16:01] LABS: Troponin I < 0.012 ng/mL (0.000-0.034)
== END 2022-05-31 19:03 | disposition home or self-care (01) ==
PROVIDERS: Emergency Provider Emergency Medicine; PCP Family Medicine
DX: R07.9 Chest pain, unspecified (principal); J90 Pleural effusion, not elsewhere classified; Z87.891 Personal history of nicotine dependence
CPT/HCPCS: 36415; 71046; 74177; 80053; 83690; 84484; 85025; 85610; 85730; 93005; 96374; 96375; 99284; J0131; J1170; J2405; J7030; Q9967

== ENCOUNTER 2022-06-03 09:54 | Emergency (ER) | payer BC, MEDICARE, SELFPAY ==
--- NOTE | ~2022-06-03 | US_ITS ---
EXAMINATION: US thoracentesis DATE: 06/03/2022 18:49 INDICATION: pleural effusion TECHNIQUE: The procedure and its risks, benefits, and alternatives were discussed with the patient. P otential risks discussed included bleeding, infection, and pneumothorax. The patient understood the r isks and agreed to proceed. The skin was prepped and draped in sterile fashion. 1% lidocaine was used for local anesthesia. Under ultrasound guidance, a 5 Fr catheter with trochar was advanced into the right pleural effusion. Fluid was aspirated. The catheter was removed, and a dressing was applied. Th ere were no immediate complications. FINDINGS: Ultrasound images demonstrate a right pleural effusion and the catheter within the fluid. IMPRESSION: 1. Successful ultrasound-guided thoracentesis yielding 70 mL of red fluid. Reviewed, dictated and finalized at location E. T FINISHER
--- NOTE | ~2022-06-03 | XR_ITS ---
EXAMINATION: XR chest 2V DATE: 06/03/2022 10:39 INDICATION: Shortness of breath. Chest pain. TECHNIQUE: Frontal and lateral views of the chest were obtained. COMPARISON: Chest 2 views 05/31/2022, CT abdomen and pelvis 05/31/2022 FINDINGS: The chest demonstrates clear lungs without pneumonia, pleural effusion, or pneumothorax. Th e heart size is normal. There is an electronic implant in left anterior chest wall. IMPRESSION: 1. No acute cardiopulmonary disease. Reviewed, dictated and finalized at location A. [employer] HEAD
--- NOTE | ~2022-06-03 | CT_ITS ---
EXAMINATION:CT diagnostic chest w con DATE: 06/03/2022 15:52 INDICATION: Right pleural effusion. TECHNIQUE: Computed tomography (CT) of the chest was performed with 75 mL Omnipaque 350 intravenous c ontrast. Automated exposure control and iterative reconstruction technique were employed. The dose-le ngth product (DLP) was 712.21 mGy-cm. COMPARISON: Chest CT 05/24/2022, CT abdomen and pelvis 05/31/2022 FINDINGS: There is mild atelectasis bilaterally. There is a small right pleural effusion. The heart s ize is normal. No pericardial effusion. There is a subcutaneous electronic implant in left anterior c hest wall. There are changes of cholecystectomy. There are changes of gastric bypass procedure. There is a small sliding hiatal hernia. There is mild thoracic spondylosis. IMPRESSION: 1. Small right pleural effusion, stable from 05/31/2022. Reviewed, dictated and finalized at location A. TRIC MELT OPERATOR
--- NOTE | ~2022-06-03 | XR_ITS ---
EXAMINATION: [id number] Exam Date/Time: 06/03/2022 18:29 PROCUREMENT SERVICES MANAGER HISTORY: Post-thoracentesis Comparison: 06/03/2022 at 10:36 AM. RESULT: Lines, tubes, and devices: Loop recorder. Lungs and pleura: Low volumes with crowding. Minimal right posterior costophrenic angle blunting. Cardiothymic silhouette: Stable. Other: No acute osseous or upper abdominal finding. IMPRESSION: No acute cardiopulmonary process. Trace right pleural effusion. Reviewed, dictated and finalized at location K. UREMENT SERVICES MANAGER
[2022-06-03 10:13] VITALS: BP 148/92; PULSE 96; RESP 16; TEMP 36.6; O2SAT 97
[2022-06-03 11:09] LABS: Basophils Percent Auto 0.3 % (0.2-1.2); Eosinophils Absolute Auto 0.5 K/mm3 (0-0.3); Eosinophils Percent Auto 4.5 % (0-4.4); Hematocrit 41.8 % (37.0-47.0); Hemoglobin 13.6 g/dL (12.0-15.0); Immature Granulocyte Absolute 0.03 K/mm3 (0.00-0.031); Immature Granulocyte Percent A 0.3 % (0-0.5); Lymphocytes Absolute Auto 3.51 K/mm3 (0.9-3.2); Lymphocytes Percent Auto 35.3 % (18.3-44.2); Mean Corpuscular HGB Conc 32.5 g/dl (32-36); Mean Corpuscular Hemoglobin 31.1 pg (26-34); Mean Corpuscular Volume 95.7 fl (80-100); Mean Platelet Volume 10.4 fl (7.4-10.4); Monocytes Absolute Auto 0.8 K/mm3 (0.1-0.6); Monocytes Percent Auto 7.6 % (2.6-8.5); Neutrophils Absolute Auto 5.2 K/mm3 (1.3-6.7); Platelet Count Result 338 k/mm3 (150-375); Red Blood Count 4.37 M/mm3 (4.2-5.4); White Blood Count 9.9 K/mm3 (4.5-10.0)
[2022-06-03 11:19] LABS: Alanine Aminotransferase 15 U/L (6-35); Albumin Level 3.6 g/dL (3.5-5.1); Alkaline Phosphatase 44 U/L (38-126); Anion Gap 4 mmol/L (8-16); Aspartate Amino Transferase 28 U/L (14-36); Bilirubin,Total 0.5 mg/dL (0.2-1.3); Blood Urea Nitrogen 11 mg/dL (7-17); Calcium 8.3 mg/dL (8.4-10.2); Carbon Dioxide 29 mmol/L (22-30); Chloride 105 mmol/L (98-107); Estimated CRCL calculation 135 ml/min; Estimated Glomerular Filt Rate > 60; Glucose 84 mg/dL (65-110); Potassium 4.3 mmol/L (3.4-5.0); Sodium 138 mmol/L (137-145)
--- NOTE | 2022-06-03 12:16 | ED.ABDPAIN ---
HPI - Abdominal Pain General Chief Complaint: Abdominal Pain Stated Complaint: increased cp/known pneumo Time Seen by Provider: 06/03/22 12:01 History of Present Illness HPI narrative: This is a 47-year-old female with past medical history of psoriatic arthritis, returning to the emergency department complaining of right flank pain and back pain. She was seen approximately 3 days ago for similar presentation, diagnosed with a pleural effusion and atelectasis. She states despite using incentive spirometer and pain medications, her pain is persisted. It is described as sharp, rated 9 out of 10, occasionally radiating to the right shoulder and felt behind the sternum. Related Data Home Medications Medication Instructions Recorded Confirmed ropinirole 1 mg tablet 1 mg PO HS 05/09/19 05/21/22 calcium carbonate 600 mg calcium 600 mg PO TID 06/06/20 05/21/22 (1,500 mg) tablet (Calcium) pantoprazole 20 mg tablet,delayed 40 mg PO QAM 06/06/20 05/21/22 release cholecalciferol (vitamin D3) 125 125 mcg PO DAILY 02/08/22 05/21/22 mcg (5,000 unit) tablet (Vitamin D3) divalproex 500 mg tablet,extended 500 mg PO BID 02/08/22 05/21/22 release 24 hr folic acid 1 mg tablet 1 mg PO DAILY 02/08/22 05/21/22 multivitamin 1 tablet PO DAILY 02/08/22 05/21/22 aripiprazole 2 mg tablet 2 mg PO DAILY 05/21/22 05/21/22 methotrexate sodium 5 mg tablet 50 mg PO WEEKLY 05/21/22 05/21/22 Allergies Allergy/AdvReac Type Severity Reaction Status Date / Time amoxicillin Allergy Severe Hives Verified 06/03/22 12:35 Penicillins Allergy Severe Hives Verified 06/03/22 12:35 adhesive Allergy Intermediate BLISTERS/RA Verified 06/03/22 12:35 SH latex Allergy Intermediate Rash Verified 06/03/22 12:35 zolpidem [From Ambien] AdvReac Intermediate sleep Verified 06/03/22 12:35 walking azithromycin AdvReac Mild Nausea and Verified 06/03/22 12:35 Vomiting ibuprofen AdvReac Mild Heartburn Verified 06/03/22 12:35 Review of Systems Review of Systems: CONSTITUTIONAL: Denies fever, chills, or sweats. EYES: Denies visual changes, redness, or discharge. ENT: Denies rhinorrhea, congestion, sore throat, or otalgia. CARDIOVASCULAR: Denies chest pain, palpitations, or edema. RESPIRATORY: Denies cough or dyspnea. GASTROINTESTINAL: Right flank and back pain denies abdominal pain, nausea, vomiting, or diarrhea. GENITOURINARY: Denies dysuria or hematuria. SKIN: Denies rash or itching. MUSCULOSKELETAL: Denies back pain, joint pain, or myalgia. NEUROLOGIC: Denies headache, numbness, dizziness, or weakness. PSYCHIATRIC: Denies anxiety or depression. [facility] Past Medical History Medical History Acid reflux Anemia Anxiety Arthritis Arthritis of knee, right Crohn's proctitis She notes it has been labelled on the Crohn's umbrella, but denies actually having Crohn's Cyst of ovary Depression Endometriosis Enteropathic arthritis Fibroids Fibromyalgia (~2008) Heart disease Hiatal hernia IBS (irritable bowel syndrome) Insomnia Interstitial cystitis Psoriatic arthritis (~2019) Restless leg syndrome UTI (urinary tract infection) Vitamin D deficiency Surgical History Surgical History History of bladder surgery History of breast surgery right - excision abscess 2019 History of cholecystectomy 2005 History of dilation and curettage 2008 - 2009 multiple History of gastric bypass 2015 History of left knee replacement February 2020 - [place] History of parotid gland excision benign tumour - 2010 History of repair of rectocele 2019 History of wisdom tooth extraction S/P endometrial ablation S/P partial hysterectomy Thyroid tumor, benign cyst excision - 1993 Family History Family History Father Hypertension Family history of elevated blood lipids Family history of arthritis Mo
[2022-06-03] MEDS: CYCLOBENZAPRINE HCL 5 MG TABLET PO (12:31)
[2022-06-03 12:37] LABS: Lipase 53 U/L (23-300)
[2022-06-03 12:39] LABS: Appearance Urine Clear (Clear); Bilirubin Urine Negative (Negative); Blood Urine Negative (Negative); Color Urine Yellow (Yellow); Glucose Urine UA Negative (Negative); Ketones Urine Negative (Negative); Leukocyte Esterase Ur Trace LEU/UL (Negative); Nitrate Urine Negative (Negative); Protein Urine Negative (Negative); Specific Grav Ur 1.015 (1.001-1.035); Urobilinogen Urine 0.2 mg/dL (<2.0); pH Urine 7.5 (5.0-9.0)
[2022-06-03 12:42] LABS: Add Urine Microscopic? YES; Bacteria Urine Trace /hpf; Mucus Urine Rare /lpf; RBC Urine 0-2 /hpf (0-2); Squamous Epithelial Cell Urine Occasional /hpf (Few)
[2022-06-03] MEDS: MORPHINE SULFATE (*CRX) 4 MG/ML INJ IV PUSH ×2 (13:50→15:29)
[2022-06-03 14:15] VITALS: BP 109/64; PULSE 86; RESP 14; O2SAT 97
[2022-06-03 14:38] LABS: SARS-CoV-2 RNA PCR Negative
[2022-06-03 14:45] VITALS: BP 119/83; PULSE 85; RESP 20; O2SAT 97
[2022-06-03] MEDS: LORazepam (*CRX) 0.5 MG TABLET PO (17:18)
[2022-06-03 17:32] VITALS: BP 149/67; PULSE 68; RESP 20; O2SAT 96
--- NOTE | 2022-06-03 17:50 | PC.NURSE ---
PT TO RADIOLOGY FOR PROCEDURE
[2022-06-03 18:42] VITALS: BP 149/87; PULSE 86; RESP 16; O2SAT 98
[2022-06-03 21:17] VITALS: BP 124/70; PULSE 72; RESP 18; TEMP 37; O2SAT 98
[2022-06-08 19:53] LABS: Glucose Pleural Fluid 68 mg/dL
== END 2022-06-03 21:19 | disposition home or self-care (01) ==
PROVIDERS: Emergency Medicine; Emergency Provider Preventive Medicine Aerospace Medicine; PCP Family Medicine
DX: R10.9 Unspecified abdominal pain (principal); J90 Pleural effusion, not elsewhere classified; Z20.822 Contact with and (suspected) exposure to COVID-19; I51.9 Heart disease, unspecified; L40.50 Arthropathic psoriasis, unspecified; K21.9 Gastro-esophageal reflux disease without esophagitis; K50.90 Crohn's disease, unspecified, without complications; N80.9 Endometriosis, unspecified; E55.9 Vitamin D deficiency, unspecified; M79.7 Fibromyalgia; M17.11 Unilateral primary osteoarthritis, right knee; G25.81 Restless legs syndrome; F32.A Depression, unspecified; F41.9 Anxiety disorder, unspecified; Z96.652 Presence of left artificial knee joint; Z98.84 Bariatric surgery status; Z90.711 Acquired absence of uterus with remaining cervical stump; Z87.440 Personal history of urinary (tract) infections; Z86.2 Personal history of diseases of the blood and blood-forming organs and certain disorders involving the immune mechanism; Z87.891 Personal history of nicotine dependence
CPT/HCPCS: 32555; 36415; 71046; 71260; 80053; 81001; 82945; 83615; 83690; 85025; 87070; 87075; 87086; 87102; 87205; 87206; 88108; 88184; 88305; 96374; 96376; 99284; A9270; J2270; Q9967; U0003; U0005

== ENCOUNTER 2022-06-11 03:17 | Emergency (ER) | payer BC, MEDICARE, SELFPAY ==
[2022-06-11] VITALS (7 sets, daily range): BP systolic 118–131; BP diastolic 86–105; PULSE 76–88; RESP 16–23; O2SAT 94–99
--- NOTE | ~2022-06-11 | XR_ITS ---
EXAMINATION: XR chest 2V DATE: 06/11/2022 04:02 INDICATION: Right chest pain. Shortness of breath. TECHNIQUE: Frontal and lateral views of the chest were obtained. COMPARISON: Chest 2 views 06/03/2022, chest CT 06/03/2022 FINDINGS: There is mild atelectasis in the lower lung zones. There is a small right pleural effusion. No pneumothorax. The heart size is normal. There is an electronic implant in left anterior body wall . Surgical clips in the right upper quadrant are likely from cholecystectomy. IMPRESSION: 1. Worsened small right pleural effusion. 2. Mild atelectasis in the lower lung zones. Reviewed, dictated and finalized at location A. AGE SCREENER
--- NOTE | 2022-06-11 03:32 | ECG_ITS ---
Measurements Intervals [facility] Rate: 82 P: 18 DE: 176 QRS: -13 QRSD: 109 T: 2 QT: 385 QTc: 450 Interpretive Statements SINUS RHYTHM DELAYED PRECORDIAL R/S TRANSITION LOW QRS VOLTAGE IN PRECORDIAL LEADS BORDERLINE T WAVE ABNORMALITY- INFERIOR LEADS BORDERLINE ECG COMPARED TO ECG 05/31/2022 14:02:05 SINUS RHYTHM NOW PRESENT Electronically Signed On 06-11-2022 7:42:48 MERCHANDISING INTERN by Earl Leon D.O.
--- NOTE | 2022-06-11 03:51 | ED.SOB ---
HPI - SOB/Dyspnea General Chief Complaint: Shortness of Breath/Dyspnea Stated Complaint: SOB Time Seen by Provider: 06/11/22 03:25 History of Present Illness HPI Narrative: Patient is a 47-year-old female presenting with shortness of breath. Patient states that this is her third or fourth visit here for shortness of breath. She was diagnosed with a pleural effusion several weeks ago which was recently drained. States that tonight she again became short of breath while she was trying to sleep. States that it hurts on the right side to take a big breath. It is similar to her prior episodes of pain. Patient states that she actually has an appointment with pulmonology later today but she was unable to tolerate the pain. No fevers or chills, lightheadedness, abdominal pain, vomiting, diarrhea, leg swelling. Related Data Home Medications Medication Instructions Recorded Confirmed ropinirole 1 mg tablet 1 mg PO HS 05/09/19 06/12/22 calcium carbonate 600 mg calcium 600 mg PO TID 06/06/20 06/12/22 (1,500 mg) tablet (Calcium) pantoprazole 20 mg tablet,delayed 40 mg PO QAM 06/06/20 06/12/22 release cholecalciferol (vitamin D3) 125 125 mcg PO DAILY 02/08/22 06/12/22 mcg (5,000 unit) tablet (Vitamin D3) divalproex 500 mg tablet,extended 500 mg PO BID 02/08/22 06/12/22 release 24 hr folic acid 1 mg tablet 1 mg PO DAILY 02/08/22 06/12/22 multivitamin 1 tablet PO DAILY 02/08/22 06/12/22 aripiprazole 2 mg tablet 2 mg PO DAILY 05/21/22 06/12/22 methotrexate sodium 5 mg tablet 50 mg PO WEEKLY 05/21/22 06/12/22 golimumab 12.5 mg/mL intravenous See Rx Instructions IV .[id number] 06/12/22 06/12/22 solution (Simponi ARIA) Allergies Allergy/AdvReac Type Severity Reaction Status Date / Time amoxicillin Allergy Severe Hives Verified 06/12/22 11:00 Penicillins Allergy Severe Hives Verified 06/12/22 11:00 adhesive Allergy Intermediate BLISTERS/RA Verified 06/12/22 11:00 SH latex Allergy Intermediate Rash Verified 06/12/22 11:00 zolpidem [From Ambien] AdvReac Intermediate sleep Verified 06/12/22 11:00 walking azithromycin AdvReac Mild Nausea and Verified 06/12/22 11:00 Vomiting ibuprofen AdvReac Mild Heartburn Verified 06/12/22 11:00 Review of Systems Review of Systems: All systems reviewed & are unremarkable except as noted in HPI and below PMFSH Past Medical History Medical History Acid reflux Anemia Anxiety Arthritis Arthritis of knee, right Crohn's proctitis She notes it has been labelled on the Crohn's umbrella, but denies actually having Crohn's Cyst of ovary Depression Endometriosis Enteropathic arthritis Fibroids Fibromyalgia (~2008) Heart disease Hiatal hernia IBS (irritable bowel syndrome) Insomnia Interstitial cystitis Psoriatic arthritis (~2019) Restless leg syndrome UTI (urinary tract infection) Vitamin D deficiency Surgical History Surgical History History of bladder surgery History of breast surgery right - excision abscess 2019 History of cholecystectomy 2005 History of dilation and curettage 2008 - 2009 multiple History of gastric bypass 2015 History of left knee replacement February 2020 - [place] History of parotid gland excision benign tumour - 2010 History of repair of rectocele 2019 History of wisdom tooth extraction S/P endometrial ablation S/P partial hysterectomy Thyroid tumor, benign cyst excision - 1993 Family History Family History Father Hypertension Family history of elevated blood lipids Family history of arthritis Mother Hypertension Family history of elevated blood lipids Family history of osteoporosis Family history of malignant neoplasm of breast Grandparent Family history of osteoporosis Hypertension Family history of Alzheimer's disease Family history of emphysema Fami
[2022-06-11 04:14] LABS: Basophils Absolute Auto 0.1 K/mm3 (0.0-0.1); Basophils Percent Auto 0.5 % (0.2-1.2); Eosinophils Absolute Auto 0.6 K/mm3 (0-0.3); Eosinophils Percent Auto 6.4 % (0-4.4); Hematocrit 42.2 % (37.0-47.0); Hemoglobin 13.8 g/dL (12.0-15.0); Immature Granulocyte Absolute 0.04 K/mm3 (0.00-0.031); Immature Granulocyte Percent A 0.4 % (0-0.5); Lymphocytes Absolute Auto 4.05 K/mm3 (0.9-3.2); Lymphocytes Percent Auto 40.8 % (18.3-44.2); Mean Corpuscular HGB Conc 32.7 g/dl (32-36); Mean Corpuscular Hemoglobin 31.3 pg (26-34); Mean Corpuscular Volume 95.7 fl (80-100); Monocytes Absolute Auto 0.6 K/mm3 (0.1-0.6); Monocytes Percent Auto 5.7 % (2.6-8.5); Neutrophils Absolute Auto 4.6 K/mm3 (1.3-6.7); Neutrophils Percent Auto 46.2 % (45.5-73.1); Platelet Count Result 320 k/mm3 (150-375); Red Blood Count 4.41 M/mm3 (4.2-5.4); Red Cell Distribution Width 15.2 % (11.5-14.5); White Blood Count 9.9 K/mm3 (4.5-10.0)
[2022-06-11] MEDS: SODIUM CHLORIDE 0.9% IV 1,000 ML 999 ML IV CONT (04:14)
[2022-06-11] MEDS: KETOROLAC 15 MG/ML VIAL (*BKC) IV PUSH (04:16)
[2022-06-11 04:22] LABS: Alanine Aminotransferase 15 U/L (6-35); Albumin Level 3.6 g/dL (3.5-5.1); Alkaline Phosphatase 54 U/L (38-126); Anion Gap 4 mmol/L (8-16); Aspartate Amino Transferase 25 U/L (14-36); Bilirubin,Total 0.5 mg/dL (0.2-1.3); Blood Urea Nitrogen 13 mg/dL (7-17); Calcium 8.4 mg/dL (8.4-10.2); Carbon Dioxide 29 mmol/L (22-30); Chloride 104 mmol/L (98-107); Estimated CRCL calculation 136 ml/min; Estimated Glomerular Filt Rate > 60; Glucose 83 mg/dL (65-110); Potassium 4.1 mmol/L (3.4-5.0); Sodium 137 mmol/L (137-145)
[2022-06-11 04:44] LABS: Troponin I < 0.012 ng/mL (0.000-0.034)
== END 2022-06-11 06:10 | disposition home or self-care (01) ==
PROVIDERS: Emergency Provider Emergency Medicine; PCP Family Medicine
DX: R07.89 Other chest pain (principal); I51.9 Heart disease, unspecified; N80.9 Endometriosis, unspecified; N30.10 Interstitial cystitis (chronic) without hematuria; E55.9 Vitamin D deficiency, unspecified; K58.9 Irritable bowel syndrome, unspecified; K21.9 Gastro-esophageal reflux disease without esophagitis; M79.7 Fibromyalgia; M17.11 Unilateral primary osteoarthritis, right knee; G25.81 Restless legs syndrome; Z98.84 Bariatric surgery status; Z96.652 Presence of left artificial knee joint; Z90.711 Acquired absence of uterus with remaining cervical stump; Z87.891 Personal history of nicotine dependence; Z86.2 Personal history of diseases of the blood and blood-forming organs and certain disorders involving the immune mechanism; Z87.440 Personal history of urinary (tract) infections; R94.31 Abnormal electrocardiogram [ECG] [EKG]
CPT/HCPCS: 36415; 71046; 80053; 84484; 85025; 93005; 96361; 96374; 96375; 99284; J0131; J1885; J7030

== ENCOUNTER 2022-07-18 10:09 | Emergency (ER) | payer BC, MEDICARE, SELFPAY ==
[2022-07-18 10:30] VITALS: BP 153/96; PULSE 98; RESP 14; TEMP 36.6; O2SAT 98
--- NOTE | 2022-07-18 11:05 | PC.NURSE ---
report received from Sri HEDRICK including history and physical and plan of care
--- NOTE | 2022-07-18 11:28 | ED.GENADULT ---
HPI - General Adult General Chief complaint: Dental/Oral Stated complaint: infected teeth Time Seen by Provider: 07/18/22 10:13 Related Data Home Medications Medication Instructions Recorded Confirmed ropinirole 1 mg tablet 1 mg PO HS 05/09/19 07/09/22 calcium carbonate 600 mg calcium 600 mg PO TID 06/06/20 07/09/22 (1,500 mg) tablet (Calcium) pantoprazole 20 mg tablet,delayed 40 mg PO QAM 06/06/20 07/09/22 release cholecalciferol (vitamin D3) 125 125 mcg PO DAILY 02/08/22 07/09/22 mcg (5,000 unit) tablet (Vitamin D3) divalproex 500 mg tablet,extended 500 mg PO BID 02/08/22 07/09/22 release 24 hr multivitamin 1 tablet PO DAILY 02/08/22 07/09/22 golimumab 12.5 mg/mL intravenous See Rx Instructions IV .[id number] 06/12/22 07/09/22 solution (Simponi ARIA) Allergies Allergy/AdvReac Type Severity Reaction Status Date / Time amoxicillin Allergy Severe Hives Verified 07/18/22 10:38 Penicillins Allergy Severe Hives Verified 07/18/22 10:38 adhesive Allergy Intermediate BLISTERS/RA Verified 07/18/22 10:38 SH latex Allergy Intermediate Rash Verified 07/18/22 10:38 clindamycin Allergy Mild Swelling Verified 07/18/22 10:38 zolpidem [From Ambien] AdvReac Intermediate sleep Verified 07/18/22 10:38 walking azithromycin AdvReac Mild Nausea and Verified 07/18/22 10:38 Vomiting ibuprofen AdvReac Mild Heartburn Verified 07/18/22 10:38 Review of Systems Review of Systems: CONSTITUTIONAL: Denies fever, chills, or sweats. EYES: Denies visual changes, redness, or discharge. ENT: Endorses dental pain. Denies rhinorrhea, congestion, sore throat, or otalgia. SKIN: Denies rash or itching. MUSCULOSKELETAL: Denies back pain, joint pain, or myalgia. NEUROLOGIC: Denies headache, numbness, dizziness, or weakness. PSYCHIATRIC: Denies anxiety or depression. [facility] Past Medical History Medical History Acid reflux Anemia Anxiety Arthritis Arthritis of knee, right Crohn's proctitis She notes it has been labelled on the Crohn's umbrella, but denies actually having Crohn's Cyst of ovary Depression Endometriosis Enteropathic arthritis Fibroids Fibromyalgia (~2008) Heart disease Hiatal hernia IBS (irritable bowel syndrome) Insomnia Interstitial cystitis Psoriatic arthritis (~2019) Restless leg syndrome UTI (urinary tract infection) Vitamin D deficiency Surgical History Surgical History History of bladder surgery History of breast surgery right - excision abscess 2019 History of cholecystectomy 2005 History of dilation and curettage 2008 - 2009 multiple History of gastric bypass 2015 History of left knee replacement February 2020 - [place] History of parotid gland excision benign tumour - 2010 History of repair of rectocele 2019 History of wisdom tooth extraction S/P endometrial ablation S/P partial hysterectomy Thyroid tumor, benign cyst excision - 1993 Family History Family History Father Hypertension Family history of elevated blood lipids Family history of arthritis Mother Hypertension Family history of elevated blood lipids Family history of osteoporosis Family history of malignant neoplasm of breast Grandparent Family history of osteoporosis Hypertension Family history of Alzheimer's disease Family history of emphysema Family history of malignant neoplasm of ovary Sibling Hypertension Family history of arthritis Other Alcoholism Asthma Social History Social History Smoking packs per day: 1 Smoking cigarettes per day: 20.0 Years smoked: 5 Smoking pack-years: 5.00 Smoking status: Former smoker Tobacco type: cigarettes Additional smoking assessment comments: quit around 1999 Alcohol intake: never Substance use: never Substance us
[2022-07-18] MEDS: HYDROcodone/acetaminophen (*CRX) 10-325 MG TABLET 1 TAB PO (12:13)
[2022-07-18] MEDS: ACETAMINOPHEN 500 MG TABLET 1000 MG PO (15:22)
== END 2022-07-18 15:40 | disposition home or self-care (01) ==
PROVIDERS: Emergency Provider Physician Assistant; PCP Family Medicine
DX: K04.7 Periapical abscess without sinus (principal); I51.9 Heart disease, unspecified; E55.9 Vitamin D deficiency, unspecified; N80.9 Endometriosis, unspecified; N30.10 Interstitial cystitis (chronic) without hematuria; M79.7 Fibromyalgia; M17.11 Unilateral primary osteoarthritis, right knee; K21.9 Gastro-esophageal reflux disease without esophagitis; K58.9 Irritable bowel syndrome, unspecified; L40.50 Arthropathic psoriasis, unspecified; G25.81 Restless legs syndrome; F41.9 Anxiety disorder, unspecified; F32.A Depression, unspecified; Z96.652 Presence of left artificial knee joint; Z87.440 Personal history of urinary (tract) infections; Z86.2 Personal history of diseases of the blood and blood-forming organs and certain disorders involving the immune mechanism; Z87.891 Personal history of nicotine dependence; Z98.84 Bariatric surgery status; Z90.711 Acquired absence of uterus with remaining cervical stump
CPT/HCPCS: 96365; 96366; 99284; A9270; J3370

== ENCOUNTER → 2022-08-05 13:52 | Outpatient (CLI) | payer BC, MEDICARE, SELFPAY ==
--- NOTE | ~2022-08-05 | XR_ITS ---
XR chest 2V DATE: 08/05/2022 14:10 INDICATION: Cough and shortness of breath TECHNIQUE: 2 views COMPARISON: 06/11/2022 PA and lateral chest FINDINGS: crystal cutter device overlies the lower left anterior chest. Normal heart size. No hilar or mediastinal enlargement. There may be minimal infiltrate or atelectasis at the posterior right lung base and minimal possible posterior costophrenic sulcus pleural fluid Otherwise no pulmonary infiltrate or consolidation, pleural effusion, pulmonary vascular congestion o r pneumothorax is detected. Status post cholecystectomy IMPRESSION: Minimal infiltrate or atelectasis at the posterior right lung base, right lower lobe; can not exclude minimal right pleural fluid Otherwise no active cardiopulmonary disease Reviewed, dictated and finalized at location B. IMPRESSION: Minimal infiltrate or atelectasis at the posterior right lung base, right lower lobe; cannot exclude minimal right pleural fluid Otherwise no active cardiopulmonary disease
== END ==
PROVIDERS: PCP Family Medicine; Visit Provider Internal Medicine Critical Care Medicine
DX: R05.9 Cough, unspecified (principal); R06.02 Shortness of breath; J90 Pleural effusion, not elsewhere classified
CPT/HCPCS: 71046

== ENCOUNTER 2022-08-19 08:23 | Outpatient (CLI) | payer BC, MEDICARE, SELFPAY ==
--- NOTE | 2022-08-13 10:42 | PC.NURSE ---
Pre Radiology instructions Report to the outpatient [facility] AT 0830 on date 08/19/22. Procedure Time: 1030. YOU MAY BE MONITORED AT HOSPITAL FOR UP TO 4 HOURS AFTER YOUR PROCEDURE. 1-2 visitors will be allowed to accompany the patient into the hospital. ?The visitor will be instructed to remain with patient at all times or MAY BE ASKED TO leave the building due to restrictions.? We will allow the visitor to come back to the postoperative area when patient is ready.? NO children visitors allowed at this time. You and your visitor will be asked to self-screen and do not enter if you have any COVID symptoms. A mask is OPTIONAL within the hospital. Patients are to have no food or drink 8 hours prior to procedure time (PER RADIOLOGY INSTRUCTIONS) Driving will be restricted after the procedure, you must have a person to drive you home. Labs will be drawn in preop area and once reviewed, you will be taken to radiology area for procedure. When the procedure is completed, you will be taken to outpatient where you will be monitored for several hours. You may have one visitor in this area. Other than holding anti-coagulants, patient may take other medication(s) as scheduled. Prior to your appointment date patients are instructed to hold anti-coagulants after discussing with ordering provider to stop. If unable to discontinue anti-coagulants please notify radiologist. ? No aspirin or warfarin (Coumadin) for 7 days prior to the procedure. ? No clopidogrel (Plavix), ticagrelor (Brilinta), prasugrel (Effient) or dabigatran (Pradaxa) for 5 days prior to the procedure. ? No rivaroxaban (Xarelto), apixaban (Eliquis), dipyridamole (Aggrenox or Persantine) or cilostazol (Pletal) for 2 days prior to the procedure. Medications to discontinue per physician: N/A Date to take last dose: N/A Please leave all valuables, including medications, at home the day of procedure. The hospital will not accept responsibility for valuables. Wear comfortable, loose fitting clothing.? Follow any additional instructions given to you from ordering provider. Telephone instructions given to PT - ANNABELLA GARCIA and asked if any additional questions and then verbalized understanding. Patient advised to call scheduling provider office or registration scheduling [phone] if any additional questions.
[2022-08-13 10:44] VITALS: BMI 44.4
[2022-08-19] VITALS (8 sets, daily range): BP systolic 108–137; BP diastolic 68–91; PULSE 89–97; RESP 16–18; TEMP 36.4; O2SAT 96–100
--- NOTE | ~2022-08-19 | XR_ITS ---
EXAMINATION: [id number] DATE: 08/19/2022 10:52 INDICATION: Right pleural effusion status post thoracentesis. TECHNIQUE: A single frontal view of the chest was obtained. COMPARISON: Chest 2 views 08/05/2022, chest CT 06/03/2022 FINDINGS: There is mild atelectasis in the lower lung zones. No pleural effusion or pneumothorax. The heart size is normal. There is an electronic implant in left chest wall. Surgical clips in the right upper quadrant are likely from cholecystectomy. There are surgical clips adjacent to the proximal st omach. IMPRESSION: 1. Mild atelectasis in the lower lung zones. Reviewed, dictated and finalized at location A.
--- NOTE | ~2022-08-19 | US_ITS ---
EXAMINATION: US thoracentesis DATE: 08/19/2022 11:07 INDICATION: pleural effusion TECHNIQUE: The procedure and its risks, benefits, and alternatives were discussed with the patient. P otential risks discussed included bleeding, infection, and pneumothorax. The patient understood the r isks and agreed to proceed. The skin was prepped and draped in sterile fashion. 1% lidocaine was used for local anesthesia. Under ultrasound guidance, a 5 Fr catheter with trochar was advanced into the right pleural effusion. Fluid was aspirated. The catheter was removed, and a dressing was applied. Th ere were no immediate complications. FINDINGS: Ultrasound images demonstrate a right pleural effusion and the catheter within the fluid. IMPRESSION: 1. Successful ultrasound-guided thoracentesis yielding 350 mL of red-lashawn colored fluid. Reviewed, dictated and finalized at location A. IMPRESSION: 1. Successful ultrasound-guided thoracentesis yielding 350 mL of red-lashawn col ored fluid.
--- NOTE | ~2022-08-19 | XR_ITS ---
EXAMINATION: XR chest 1V portable 08/19/2022 12:25 INDICATION: Chest pain PROCEDURE: AP portable chest COMPARISON: Comparison to multiple prior studies sequentially, with oldest reviewed study dated 06/03. FINDINGS: The lungs are clear. The cardiomediastinal silhouette is within normal limits. There are no pleural effusions. There is no pneumothorax suspected. IMPRESSION: 1: NO ACUTE CARDIOPULMONARY DISEASE. Reviewed, dictated and finalized at location B.
[2022-08-19 09:03] LABS: Mean Platelet Volume 10.9 fl (7.4-10.4); Platelet Count Result 315 k/mm3 (150-375)
[2022-08-19 09:14] LABS: INR 0.9; Prothrombin Time 12.1 Seconds (11.1-14.7)
--- NOTE | 2022-08-19 11:14 | SUR.PHASEII ---
pt c/o of increase pain around the procedure site and increase pain with inspiration. dr connors called and came to bedside. said to continue to observe and give tylenol for pain.
[2022-08-19] MEDS: ACETAMINOPHEN 500 MG TABLET 1000 MG PO (11:26)
--- NOTE | 2022-08-19 12:10 | SUR.PHASEII ---
this nurse attempted to call dr connors and got a vm. this nurse asked for him to call me back
--- NOTE | 2022-08-19 12:13 | SUR.PHASEII ---
dr connors called me back. plan for a repeat CXR. dr connors is putting the order in and rad called and will come do a portable CXR.
--- NOTE | 2022-08-19 12:50 | SUR.PHASEII ---
PT SAID HER PAIN IS UNCHANGED but said she is comfortable going home. dr connors came to bedside and said pt is good to go home.
[2022-08-22 04:36] LABS: Glucose Pleural Fluid 90 mg/dL
== END 2022-08-19 13:14 | disposition home or self-care (01) ==
PROVIDERS: PCP Family Medicine; Referring Provider Internal Medicine Critical Care Medicine; Visit Provider Radiology Diagnostic Radiology
DX: J90 Pleural effusion, not elsewhere classified (principal); J98.11 Atelectasis
CPT/HCPCS: 32555; 36415; 71045; 82945; 83615; 84157; 84311; 85049; 85610; 87015; 87070; 87075; 87076; 87102; 87116; 87205; 87206; A9270

== ENCOUNTER 2022-08-20 13:42 | Emergency (ER) | payer BC, MEDICARE, SELFPAY ==
[2022-08-20] VITALS (10 sets, daily range): BP systolic 104–139; BP diastolic 81–108; PULSE 84–116; RESP 14–21; TEMP 36.4; O2SAT 96–100
--- NOTE | ~2022-08-20 | XR_ITS ---
EXAMINATION: XR chest 2V DATE: 08/20/2022 14:15 INDICATION: Right chest pain. Fever. TECHNIQUE: Frontal and lateral views of the chest were obtained. COMPARISON: Chest single view 08/19/2022, chest CT 09/01/2022 FINDINGS: There is a small right pleural effusion. There are airspace opacities at right lung base. N o pneumothorax. The heart size is normal. There is electronic implant in left anterior chest wall. Marsh rgical clips in the right upper quadrant are likely from cholecystectomy. IMPRESSION: 1. Airspace opacities at right lung base, consistent with atelectasis versus pneumonia. 2. Small right pleural effusion. Reviewed, dictated and finalized at location A. IMPRESSION: 1. Airspace opacities at right lung base, consistent with atelectasis versus pn eumonia. 2. Small right pleural effusion.
--- NOTE | 2022-08-20 13:44 | ECG_ITS ---
Measurements Intervals [place] Rate: 97 P: 11 [place]: 161 QRS: -11 QRSD: 98 T: 8 QT: 350 QTc: 445 Interpretive Statements SINUS RHYTHM BASELINE ARTIFACT NONSPECIFIC T-WAVE ABNORMALITY POOR R-WAVE PROGRESSION BORDERLINE ECG COMPARED TO ECG 06/11/2022 03:53:32 NO SIGNIFICANT CHANGES Electronically Signed On 08-20-2022 16:29:05 CDT by Alfredo Melton M.D.
[2022-08-20 14:08] LABS: Basophils Percent Auto 0.1 % (0.2-1.2); Eosinophils Absolute Auto 0.3 K/mm3 (0-0.3); Eosinophils Percent Auto 3.2 % (0-4.4); Hematocrit 45.4 % (37.0-47.0); Hemoglobin 15.2 g/dL (12.0-15.0); Immature Granulocyte Absolute 0.02 K/mm3 (0.00-0.031); Immature Granulocyte Percent A 0.2 % (0-0.5); Lymphocytes Absolute Auto 2.96 K/mm3 (0.9-3.2); Lymphocytes Percent Auto 32.2 % (18.3-44.2); Mean Corpuscular HGB Conc 33.5 g/dl (32-36); Mean Corpuscular Hemoglobin 29.7 pg (26-34); Mean Corpuscular Volume 88.7 fl (80-100); Mean Platelet Volume 10.8 fl (7.4-10.4); Monocytes Absolute Auto 0.6 K/mm3 (0.1-0.6); Monocytes Percent Auto 6.8 % (2.6-8.5); Neutrophils Absolute Auto 5.3 K/mm3 (1.3-6.7); Neutrophils Percent Auto 57.5 % (45.5-73.1); Platelet Count Result 340 k/mm3 (150-375); Red Blood Count 5.12 M/mm3 (4.2-5.4); Red Cell Distribution Width 13.2 % (11.5-14.5); White Blood Count 9.2 K/mm3 (4.5-10.0)
[2022-08-20 14:18] LABS: Alanine Aminotransferase 30 U/L (6-35); Albumin Level 4.1 g/dL (3.5-5.1); Alkaline Phosphatase 54 U/L (38-126); Anion Gap 5 mmol/L (8-16); Aspartate Amino Transferase 32 U/L (14-36); Bilirubin,Total 0.6 mg/dL (0.2-1.3); Blood Urea Nitrogen 14 mg/dL (7-17); Calcium 8.8 mg/dL (8.4-10.2); Carbon Dioxide 26 mmol/L (22-30); Chloride 102 mmol/L (98-107); Estimated CRCL calculation 156 ml/min; Estimated Glomerular Filt Rate > 60; Glucose 98 mg/dL (65-110); Lipase 63 U/L (23-300); Sodium 133 mmol/L (137-145)
[2022-08-20 14:23] LABS: Partial Thromboplastin Time 26.2 SECONDS (22.3-36.8)
[2022-08-20] MEDS: ASPIRIN 81 MG CHEWABLE TABLET 324 MG PO (14:24)
[2022-08-20 14:29] LABS: Troponin I < 0.012 ng/mL (0.000-0.034)
[2022-08-20] MEDS: ONDANSETRON INJ 4 MG/2 ML VIAL IV PUSH (14:48)
[2022-08-20] MEDS: MORPHINE SULFATE (*CRX) 4 MG/ML INJ IV PUSH (14:48)
[2022-08-20 14:50] LABS: Prothrombin Time 12.7 Seconds (11.1-14.7)
--- NOTE | 2022-08-20 16:00 | ED.GENADULT ---
HPI - General Adult General Chief complaint: Chest Pain Stated complaint: Thoracentesis 08/19-pain/fever Time Seen by Provider: 08/20/22 14:29 Source: patient Mode of arrival: wheelchair Limitations: no limitations History of Present Illness HPI narrative: 47-year-old with a history of fibromyalgia multiple other medical problems here with a right-sided chest pain had a thoracentesis done here yesterday she states all night long she was having pain also had a low-grade fever. She denies any cough or shortness of breath. Onset (ago): day(s) (1) Location: chest (right) Radiation: non-radiation Severity: moderate Quality: aching Pain Consistency: constant Relieving factors: none Exacerbating factors: none Associated symptoms: fever/chills Treatments prior to arrival: none Related Data Home Medications Medication Instructions Recorded Confirmed calcium carbonate 600 mg calcium 600 mg PO TID 06/06/20 08/13/22 (1,500 mg) tablet (Calcium) pantoprazole 20 mg tablet,delayed 40 mg PO QAM 06/06/20 08/13/22 release cholecalciferol (vitamin D3) 125 125 mcg PO DAILY 02/08/22 08/13/22 mcg (5,000 unit) tablet (Vitamin D3) divalproex 500 mg tablet,extended 500 mg PO BID 02/08/22 08/13/22 release 24 hr multivitamin 1 tablet PO DAILY 02/08/22 08/13/22 golimumab 12.5 mg/mL intravenous See Rx Instructions IV .[id number] 06/12/22 08/13/22 solution (Simponi ARIA) Allergies Allergy/AdvReac Type Severity Reaction Status Date / Time amoxicillin Allergy Severe Hives Verified 08/20/22 14:22 Penicillins Allergy Severe Hives Verified 08/20/22 14:22 adhesive Allergy Intermediate BLISTERS/RA Verified 08/20/22 14:22 SH latex Allergy Intermediate Rash Verified 08/20/22 14:22 clindamycin Allergy Mild Swelling Verified 08/20/22 14:22 zolpidem [From Ambien] AdvReac Intermediate sleep Verified 08/20/22 14:22 walking azithromycin AdvReac Mild Nausea and Verified 08/20/22 14:22 Vomiting ibuprofen AdvReac Mild Heartburn Verified 08/20/22 14:22 Review of Systems Review of Systems: All systems reviewed & are unremarkable except as noted in HPI and below Constitutional: Constitutional: Reports no additional constitutional complaints Eyes: Eyes: Reports no additional eye complaints ENT: Reports system reviewed and no additional complaints, except as documented Cardiovascular: Cardiovascular: Reports no additional cardiovascular complaints Respiratory: Respiratory: Reports as per HPI Gastrointestinal: Gastrointestinal: Reports no additional gastrointestinal complaints Genitourinary: Genitourinary: Reports no additional female genitourinary complaints [facility] Past Medical History Medical History Acid reflux Anemia Anxiety Arthritis Arthritis of knee, right Crohn's proctitis She notes it has been labelled on the Crohn's umbrella, but denies actually having Crohn's Cyst of ovary Depression Endometriosis Enteropathic arthritis Fibroids Fibromyalgia (~2008) Heart disease Hiatal hernia IBS (irritable bowel syndrome) Insomnia Interstitial cystitis Pleural effusion Psoriatic arthritis (~2019) Restless leg syndrome UTI (urinary tract infection) Vitamin D deficiency Surgical History Surgical History History of bladder surgery History of breast surgery right - excision abscess 2019 History of cholecystectomy 2005 History of dilation and curettage 2008 - 2009 multiple History of gastric bypass 2015 History of left knee replacement February 2020 - [place] History of parotid gland excision benign tumour - 2010 History of repair of rectocele 2019 History of wisdom tooth extraction S/P endometrial ablation S/P partial hysterectomy Thyroid tumor, benign cyst excision - 1993 Family History Family History Father Hypertension Family history of elevate
== END 2022-08-20 16:41 | disposition home or self-care (01) ==
PROVIDERS: Emergency Medicine; Emergency Provider Family Medicine; PCP Family Medicine
DX: R07.81 Pleurodynia (principal); I51.9 Heart disease, unspecified; M79.7 Fibromyalgia; K21.9 Gastro-esophageal reflux disease without esophagitis; K50.90 Crohn's disease, unspecified, without complications; N80.9 Endometriosis, unspecified; L40.50 Arthropathic psoriasis, unspecified; G25.81 Restless legs syndrome; E55.9 Vitamin D deficiency, unspecified; Z86.2 Personal history of diseases of the blood and blood-forming organs and certain disorders involving the immune mechanism; Z87.440 Personal history of urinary (tract) infections; Z98.84 Bariatric surgery status; Z90.711 Acquired absence of uterus with remaining cervical stump; Z87.891 Personal history of nicotine dependence; R91.8 Other nonspecific abnormal finding of lung field; R94.31 Abnormal electrocardiogram [ECG] [EKG]
CPT/HCPCS: 36415; 71046; 80053; 83690; 84484; 85025; 85610; 85730; 93005; 96374; 96375; 99284; A9270; J2270; J2405

== ENCOUNTER 2022-11-24 12:29 | Emergency (ER) | payer BC, MEDICARE, SELFPAY ==
[2022-11-24 12:44] VITALS: BP 122/74; PULSE 103; RESP 16; TEMP 36.3; O2SAT 99
--- NOTE | 2022-11-24 12:51 | ED.EYEPROB ---
HPI - Eye Problem General Chief complaint: Eye Problems Stated complaint: EYE PAIN/REDNESS Time Seen by Provider: 11/24/22 12:31 Source: patient and family ( ) Mode of arrival: ambulatory Limitations: no limitations History of Present Illness HPI Narrative: 47-year-old female presents to [facility] with complaints of redness, pain and minimal tearing to her left eye for the past 2 days.. 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 patient reports that she then took a nap and woke up with current symptoms. Patient does wear glasses but denies wearing contacts. Patient denies injury to her eye. Patient denies manic, purulent drainage, decreased vision. MD chief complaint: eye pain and eye redness Onset (ago): day(s) (2) Onset description: sudden Location: left eye Place: home Mechanism: none Severity: mild Associated symptoms: none Related Data Home Medications Medication Instructions Recorded Confirmed calcium carbonate 600 mg calcium 600 mg PO TID 06/06/20 09/12/22 (1,500 mg) tablet (Calcium) pantoprazole 20 mg tablet,delayed 40 mg PO QAM 06/06/20 09/12/22 release cholecalciferol (vitamin D3) 125 125 mcg PO DAILY 02/08/22 09/12/22 mcg (5,000 unit) tablet (Vitamin D3) divalproex 500 mg tablet,extended 500 mg PO BID 02/08/22 09/12/22 release 24 hr multivitamin 1 tablet PO DAILY 02/08/22 09/12/22 golimumab 12.5 mg/mL intravenous See Rx Instructions IV .[id number] 06/12/22 09/12/22 solution (Simponi ARIA) aripiprazole 5 mg tablet mg 11/24/22 folic acid 1 mg tablet 11/24/22 gabapentin 600 mg tablet mg 11/24/22 lidocaine 4 % topical patch patch topical 11/24/22 (Lidocaine Pain Relief) lorazepam 0.5 mg tablet mg 11/24/22 methocarbamol 500 mg tablet mg 11/24/22 methotrexate sodium 2.5 mg tablet mg 11/24/22 ropinirole 1 mg tablet mg 11/24/22 tramadol 50 mg tablet mg 11/24/22 Allergies Allergy/AdvReac Type Severity Reaction Status Date / Time amoxicillin Allergy Severe Hives Verified 11/24/22 12:37 Penicillins Allergy Severe Hives Verified 11/24/22 12:37 adhesive Allergy Intermediate BLISTERS/RA Verified 11/24/22 12:37 SH latex Allergy Intermediate Rash Verified 11/24/22 12:37 clindamycin Allergy Mild Swelling Verified 11/24/22 12:37 zolpidem [From Ambien] AdvReac Intermediate sleep Verified 11/24/22 12:37 walking azithromycin AdvReac Mild Nausea and Verified 11/24/22 12:37 Vomiting ibuprofen AdvReac Mild Heartburn Verified 11/24/22 12:37 Review of Systems Constitutional: Constitutional: Denies chills, Denies fatigue, Denies fever(s) and Denies weakness Eyes: Comments: Left eye pain and redness ENT: Denies vertigo and Denies dizziness Respiratory: Respiratory: Denies cough, Denies dyspnea and Denies wheezing Gastrointestinal: Gastrointestinal: Denies diarrhea, Denies nausea and Denies vomiting Integumentary/Breasts: Skin/Breast: Denies erythema, Denies rash and Denies skin ulcer PMFSH Past Medical History Medical History Acid reflux Anemia Anxiety Arthritis Arthritis of knee, right Crohn's proctitis She notes it has been labelled on the Crohn's umbrella, but denies actually having Crohn's Cyst of ovary Depression Endometriosis Enteropathic arthritis Fibroids Fibromyalgia (~2008) Heart disease Hiatal hernia IBS (irritable bowel syndrome) Insomnia Interstitial cystitis Pleural effusion Psoriatic arthritis (~2019) Restless leg syndrome UTI (urinary tract infection) Vitamin D deficiency Surgical History Surgical History History of bladder surgery History of breast surgery right - excision abscess 2019 History of cholecystectomy 2005 History of dilation and curettage 2008 - 2009 multiple History of gastric bypass 2015 History of left knee replacement February 2020 - [facility]
== END 2022-11-24 13:04 | disposition home or self-care (01) ==
PROVIDERS: Emergency Provider Nurse Practitioner Family; PCP Family Medicine
DX: H57.12 Ocular pain, left eye (principal); Z87.891 Personal history of nicotine dependence; K21.9 Gastro-esophageal reflux disease without esophagitis; M17.11 Unilateral primary osteoarthritis, right knee; N80.9 Endometriosis, unspecified; M79.7 Fibromyalgia; L40.50 Arthropathic psoriasis, unspecified; E55.9 Vitamin D deficiency, unspecified; Z98.84 Bariatric surgery status; Z96.652 Presence of left artificial knee joint
CPT/HCPCS: 99213; A9270; G0463

== ENCOUNTER 2023-01-08 18:32 | Emergency (ER) | payer BC, MEDICARE, SELFPAY ==
--- NOTE | ~2023-01-08 | XR_ITS ---
EXAM: XR knee LT 3V DATE: 01/08/2023 19:10 HISTORY: fall, left knee pain . COMPARISON: 09/12/2022, images only. FINDINGS: Decreased mineralization. Uncomplicated left knee total arthroplasty. No fracture or dislo cation. No lytic or blastic lesion. Joint spaces are maintained. No erosion or periosteal change. Sof t tissues within normal limits. IMPRESSION: No acute osseous finding in the left knee. No radiographic evidence of hardware-related c omplication. Reviewed, dictated and finalized at location K. IMPRESSION: No acute osseous finding in the left knee. No radiographic evidence of hardware-related complication.
[2023-01-08 18:43] VITALS: BP 133/84; PULSE 77; RESP 16; TEMP 36.4; O2SAT 98
--- NOTE | 2023-01-08 18:46 | ED.LOWEXIN ---
HPI - Extremity Injury (Lower) General Chief Complaint: Extremity Injury, Lower Stated Complaint: BILAT KNEE INJURY Time Seen by Provider: 01/08/23 18:35 Source: patient, family and RN notes reviewed History of Present Illness HPI Narrative: Patient is a 47-year-old female who presents to Urgent Care with her spouse with complaints of bilateral knee pain. Patient states that she had a knee replacement on the left in 2019. States that she does have severe psoriatic arthritis and sometimes uses a walker at home for ambulation. Patient states that tonight she fell down 5 stairs landing on both knees. Patient reports some right knee discomfort with weight-bearing but no discomfort at rest. Patient reports left knee pain at rest, with movement and weight-bearing. Patient is not taking [id number] medication for pain. Patient believes she tripped over her own feet. Patient denies any dizziness or hitting her head. No loss of consciousness. No other acute complaints or injuries. Patient aware of the plan of care. Some parts of this dictation were generated by voice recognition software and may contain typographical and/or grammatical inaccuracies. Related Data Home Medications Medication Instructions Recorded Confirmed calcium carbonate 600 mg calcium 600 mg PO TID 06/06/20 01/08/23 (1,500 mg) tablet (Calcium) pantoprazole 20 mg tablet,delayed 40 mg PO QAM 06/06/20 01/08/23 release cholecalciferol (vitamin D3) 125 125 mcg PO DAILY 02/08/22 01/08/23 mcg (5,000 unit) tablet (Vitamin D3) divalproex 500 mg tablet,extended 500 mg PO BID 02/08/22 01/08/23 release 24 hr multivitamin 1 tablet PO DAILY 02/08/22 01/08/23 golimumab 12.5 mg/mL intravenous See Rx Instructions IV .[id number] 06/12/22 01/08/23 solution (Simponi ARIA) aripiprazole 5 mg tablet 5 mg PO DAILY 11/24/22 01/08/23 folic acid 1 mg tablet 1 mg PO DAILY 11/24/22 01/08/23 gabapentin 600 mg tablet 600 mg PO DAILY 11/24/22 01/08/23 lidocaine 4 % topical patch 1 patch topical DAILY 11/24/22 01/08/23 (Lidocaine Pain Relief) lorazepam 0.5 mg tablet 0.5 mg PO BID 11/24/22 01/08/23 methotrexate sodium 2.5 mg tablet 12.5 mg PO WEEKLY 11/24/22 01/08/23 ropinirole 1 mg tablet 1 mg PO DAILY 11/24/22 01/08/23 Allergies Allergy/AdvReac Type Severity Reaction Status Date / Time amoxicillin Allergy Severe Hives Verified 01/08/23 18:37 Penicillins Allergy Severe Hives Verified 01/08/23 18:37 adhesive Allergy Intermediate BLISTERS/RA Verified 01/08/23 18:37 SH latex Allergy Intermediate Rash Verified 01/08/23 18:37 clindamycin Allergy Mild Swelling Verified 01/08/23 18:37 zolpidem [From Ambien] AdvReac Intermediate sleep Verified 01/08/23 18:37 walking azithromycin AdvReac Mild Nausea and Verified 01/08/23 18:37 Vomiting ibuprofen AdvReac Mild Heartburn Verified 01/08/23 18:37 Review of Systems Review of Systems: CONSTITUTIONAL: Denies fever, chills, or sweats. EYES: Denies visual changes, redness, or discharge. ENT: Denies rhinorrhea, congestion, sore throat, or otalgia. CARDIOVASCULAR: Denies chest pain, palpitations, or edema. RESPIRATORY: Denies cough or dyspnea. GASTROINTESTINAL: Denies abdominal pain, nausea, vomiting, or diarrhea. GENITOURINARY: Denies dysuria or hematuria. SKIN: Denies rash or itching. MUSCULOSKELETAL: Reports bilateral eye pain NEUROLOGIC: Denies headache, numbness, or weakness. All other systems reviewed are negative, except as documented in HPI. [facility] Past Medical History Medical History Acid reflux Anemia Anxiety Arthritis Arthritis of knee, right Crohn's proctitis She notes it has been labelled on the Crohn's umbrella, but denies actually having Crohn's Cyst of ovary Depression Endometriosis Enteropathic arthritis Fibroids Fibromyalgia (~2008) Heart disease Hiatal hernia IBS (irritable bowel syndrome) Insomnia Interstitial cystitis Pleural effu
== END 2023-01-08 19:50 | disposition home or self-care (01) ==
PROVIDERS: Emergency Provider Nurse Practitioner Family; PCP Family Medicine
DX: S80.02XA Contusion of left knee, initial encounter (principal); W10.9XXA Fall (on) (from) unspecified stairs and steps, initial encounter; Z87.891 Personal history of nicotine dependence; K21.9 Gastro-esophageal reflux disease without esophagitis; N80.9 Endometriosis, unspecified; M79.7 Fibromyalgia; G25.81 Restless legs syndrome; F41.9 Anxiety disorder, unspecified; M17.11 Unilateral primary osteoarthritis, right knee; L40.50 Arthropathic psoriasis, unspecified; Z96.652 Presence of left artificial knee joint
CPT/HCPCS: 73562; 99213; G0463

== ENCOUNTER 2023-01-26 07:04 | Emergency (ER) | payer BC, MEDICARE, SELFPAY ==
--- NOTE | ~2023-01-26 | XR_ITS ---
XR chest 2V DATE: 01/26/2023 08:14 INDICATION: Chest pain. History of pleural effusion. TECHNIQUE: PA and lateral views COMPARISON: August 20, 2022 2 view chest FINDINGS: property assessment monitor device is noted on the left. Normal heart size. There is patchy infiltrate and/or atelectasis in the right mid and lower lung zone s and mild right pleural effusion. The left lung appears clear. No left pleural effusion. No pneumothorax. IMPRESSION: Right mid and lower lung infiltrate and/atelectasis and mild right pleural effusion Reviewed, dictated and finalized at location A.
--- NOTE | 2023-01-26 07:05 | ECG_ITS ---
Measurements Intervals [place] Rate: 85 P: 22 MD: 177 QRS: -13 QRSD: 97 T: 7 QT: 369 QTc: 441 Interpretive Statements SINUS RHYTHM INCOMPLETE RIGHT BUNDLE BRANCH BLOCK LOW QRS VOLTAGE IN PRECORDIAL LEADS BORDERLINE R WAVE PROGRESSION, ANTERIOR LEADS BORDERLINE T WAVE ABNORMALITY- ANT/INF LEADS BORDERLINE ECG COMPARED TO ECG 08/20/2022 13:51:32 NO SIGNIFICANT CHANGES Electronically Signed On 01-26-2023 7:57:50 CDT by Earl Leon D.O.
[2023-01-26 07:10] VITALS: BP 144/82; PULSE 86; RESP 19; TEMP 36.6; O2SAT 97
[2023-01-26 07:21] VITALS: PULSE 87
[2023-01-26] MEDS: ASPIRIN 81 MG CHEWABLE TABLET 324 MG PO (07:22)
[2023-01-26 07:37] LABS: Basophils Percent Auto 0.3 % (0.2-1.2); Eosinophils Absolute Auto 0.3 K/mm3 (0-0.3); Eosinophils Percent Auto 2.9 % (0-4.4); Hematocrit 40.6 % (37.0-47.0); Immature Granulocyte Absolute 0.05 K/mm3 (0.00-0.031); Immature Granulocyte Percent A 0.5 % (0-0.5); Lymphocytes Absolute Auto 3.69 K/mm3 (0.9-3.2); Lymphocytes Percent Auto 33.9 % (18.3-44.2); Mean Corpuscular Hemoglobin 28.7 pg (26-34); Mean Corpuscular Volume 89.6 fl (80-100); Mean Platelet Volume 11.3 fl (7.4-10.4); Monocytes Percent Auto 9.5 % (2.6-8.5); Neutrophils Absolute Auto 5.8 K/mm3 (1.3-6.7); Neutrophils Percent Auto 52.9 % (45.5-73.1); Platelet Count Result 349 k/mm3 (150-375); Red Blood Count 4.53 M/mm3 (4.2-5.4); Red Cell Distribution Width 14.8 % (11.5-14.5); White Blood Count 10.9 K/mm3 (4.5-10.0)
--- NOTE | 2023-01-26 07:38 | ED.CHESTPAIN ---
HPI - Chest Pain General Chief Complaint: Chest Pain Stated Complaint: Chest pain Time Seen by Provider: 01/26/23 07:37 Source: patient Mode of arrival: ambulatory Limitations: no limitations History of Present Illness HPI narrative: 47 years old white female came to the emergency room because of pain at the right upper chest and right upper back noticed after waking up from sleep this morning. Patient denied any history of prior to going to bed last night. Patient feels bubbling like feeling at the right side of the chest. History of pleural effusion with numerous thoracentesis last 1 1-1/2 months ago at [facility]. She reports that her pleural effusion secondary to inflammation. History of fibromyalgia along Related Data Home Medications Medication Instructions Recorded Confirmed calcium carbonate 600 mg calcium 600 mg PO TID 06/06/20 01/23/23 (1,500 mg) tablet (Calcium) pantoprazole 20 mg tablet,delayed 40 mg PO QAM 06/06/20 01/23/23 release cholecalciferol (vitamin D3) 125 125 mcg PO DAILY 02/08/22 01/23/23 mcg (5,000 unit) tablet (Vitamin D3) divalproex 500 mg tablet,extended 500 mg PO BID 02/08/22 01/23/23 release 24 hr multivitamin 1 tablet PO DAILY 02/08/22 01/23/23 golimumab 12.5 mg/mL intravenous See Rx Instructions IV .[id number] 06/12/22 01/23/23 solution (Simponi ARIA) aripiprazole 5 mg tablet 5 mg PO DAILY 11/24/22 01/23/23 folic acid 1 mg tablet 1 mg PO DAILY 11/24/22 01/23/23 gabapentin 600 mg tablet 600 mg PO DAILY 11/24/22 01/23/23 lidocaine 4 % topical patch 1 patch topical DAILY 11/24/22 01/23/23 (Lidocaine Pain Relief) lorazepam 0.5 mg tablet 0.5 mg PO BID 11/24/22 01/23/23 ropinirole 1 mg tablet 1 mg PO DAILY 11/24/22 01/23/23 azathioprine 100 mg tablet 150 mg PO DAILY 01/23/23 01/23/23 prednisone 10 mg tablet 15 mg PO DAILY 01/23/23 01/23/23 Allergies Allergy/AdvReac Type Severity Reaction Status Date / Time amoxicillin Allergy Severe Hives Verified 01/26/23 07:21 Penicillins Allergy Severe Hives Verified 01/26/23 07:21 adhesive Allergy Intermediate BLISTERS/RA Verified 01/26/23 07:21 SH latex Allergy Intermediate Rash Verified 01/26/23 07:21 clindamycin Allergy Mild Swelling Verified 01/26/23 07:21 zolpidem [From Ambien] AdvReac Intermediate sleep Verified 01/26/23 07:21 walking azithromycin AdvReac Mild Nausea and Verified 01/26/23 07:21 Vomiting ibuprofen AdvReac Mild Heartburn Verified 01/26/23 07:21 Review of Systems Review of Systems: All systems reviewed & are unremarkable except as noted in HPI and below PMFSH Past Medical History Medical History Acid reflux Anemia Anxiety Arthritis Arthritis of knee, right Crohn's proctitis She notes it has been labelled on the Crohn's umbrella, but denies actually having Crohn's Cyst of ovary Depression Endometriosis Enteropathic arthritis Fibroids Fibromyalgia (~2008) Heart disease Hiatal hernia IBS (irritable bowel syndrome) Insomnia Interstitial cystitis Pleural effusion Psoriatic arthritis (~2019) Restless leg syndrome UTI (urinary tract infection) Vitamin D deficiency Surgical History Surgical History History of bladder surgery History of breast surgery right - excision abscess 2019 History of cholecystectomy 2005 History of dilation and curettage 2008 - 2009 multiple History of gastric bypass 2015 History of left knee replacement February 2020 - [facility] History of parotid gland excision benign tumour - 2010 History of repair of rectocele 2019 History of wisdom tooth extraction S/P endometrial ablation S/P partial hysterectomy Thyroid tumor, benign cyst excision - 1993 Family History Family History Father Hypertension Family history of elevated blood lipids Family history of arthritis Mother Hypertension Family histo
[2023-01-26 07:49] LABS: Alanine Aminotransferase 15 U/L (6-35); Albumin Level 3.8 g/dL (3.5-5.1); Alkaline Phosphatase 61 U/L (38-126); Anion Gap 5 mmol/L (8-16); Aspartate Amino Transferase 25 U/L (14-36); Bilirubin,Total 0.4 mg/dL (0.2-1.3); Blood Urea Nitrogen 14 mg/dL (7-17); Calcium 8.7 mg/dL (8.4-10.2); Carbon Dioxide 28 mmol/L (22-30); Chloride 103 mmol/L (98-107); Estimated CRCL calculation 181 ml/min; Estimated Glomerular Filt Rate > 60; Glucose 93 mg/dL (65-110); Lipase 107 U/L (23-300); Potassium 3.8 mmol/L (3.4-5.0); Sodium 136 mmol/L (137-145)
[2023-01-26 08:00] VITALS: BP 146/84; PULSE 82; RESP 22; O2SAT 95
[2023-01-26 08:01] LABS: Troponin I < 0.012 ng/mL (0.000-0.034)
[2023-01-26 08:20] LABS: INR 0.9; Prothrombin Time 12.5 Seconds (11.1-14.7)
[2023-01-26 08:21] LABS: Partial Thromboplastin Time 28.6 SECONDS (22.3-36.8)
[2023-01-26] MEDS: HYDROcodone/acetaminophen (*CRX) 5-325 MG TABLET 1 TAB PO (08:42)
[2023-01-26 08:43] VITALS: BP 146/84; PULSE 90; RESP 13; O2SAT 98; O2SAT 99
== END 2023-01-26 09:29 | disposition home or self-care (01) ==
PROVIDERS: Emergency Medicine; Emergency Provider Emergency Medicine; PCP Family Medicine
DX: J18.9 Pneumonia, unspecified organism (principal); R07.89 Other chest pain; M79.7 Fibromyalgia; K21.9 Gastro-esophageal reflux disease without esophagitis; F41.9 Anxiety disorder, unspecified; F32.A Depression, unspecified; L40.50 Arthropathic psoriasis, unspecified; E55.9 Vitamin D deficiency, unspecified; D64.9 Anemia, unspecified; K50.10 Crohn's disease of large intestine without complications; I51.9 Heart disease, unspecified; G25.81 Restless legs syndrome; Z87.891 Personal history of nicotine dependence; F12.90 Cannabis use, unspecified, uncomplicated; Z79.620 Long term (current) use of immunosuppressive biologic
CPT/HCPCS: 36415; 71046; 80053; 83690; 84484; 85025; 85610; 85730; 93005; 99284; A9270

== ENCOUNTER → 2023-02-18 09:07 | Outpatient (CLI) | payer BC, MEDICARE, SELFPAY ==
--- NOTE | ~2023-02-18 | XR_ITS ---
XR chest 2V 02/18/2023 09:18 Indication: Cough and shortness of breath Procedure: 2 view chest Comparison: 01/26/2023 and 08/20/2022 Findings: Stable linear infiltrates of the right mid and lower lung. Small right pleural effusion. Mi ld cardiomegaly. No acute osseous abnormality. No pneumothorax. Impression: 1: Stable linear infiltrates of the right mid and lower lung which may represent atelectasis or atypi monica pneumonia. 2: Small right pleural effusion. Reviewed, dictated and finalized at location L. Impression: 1: Stable linear infiltrates of the right mid and lower lung which may represen t atelectasis or atypical pneumonia. 2: Small right pleural effusion.
== END ==
PROVIDERS: PCP Nurse Practitioner; Visit Provider Nurse Practitioner
DX: R06.02 Shortness of breath (principal); R07.81 Pleurodynia; J90 Pleural effusion, not elsewhere classified; Z87.01 Personal history of pneumonia (recurrent)
CPT/HCPCS: 71046

== ENCOUNTER → 2023-03-13 11:17 | Outpatient (CLI) | payer BC, MEDICARE, SELFPAY ==
--- NOTE | ~2023-03-13 | CT_ITS ---
EXAMINATION: CT soft tissue neck w con DATE: 03/13/2023 11:47 INDICATION: Neck mass. TECHNIQUE: Computed tomography (CT) of the neck was performed with 75 mL Omnipaque-350 intravenous co ntrast. Automated exposure control and iterative reconstruction technique were employed. The dose-nhan gth product was 458.32 mGy-cm. COMPARISON: Thyroid ultrasound 03/13/2023, chest CT 05/09/2019. FINDINGS: There is mild atelectasis in right lung. There is right-sided pleural thickening versus tra ce pleural effusion. There are no pathologically enlarged lymph nodes. There is enlargement of right thyroid lobe, stable from 05/09/2019. There is severe cervical spondylosis. IMPRESSION: 1. Enlargement of right thyroid lobe, stable from 05/09/2019. Reviewed, dictated and finalized at location E.
--- NOTE | ~2023-03-13 | US_ITS ---
EXAMINATION: US thyroid DATE: 03/13/2023 11:57 INDICATION: Neck mass. TECHNIQUE: Multiple ultrasound images of the thyroid were obtained. COMPARISON: Thyroid ultrasound 05/23/2022, 09/09/2011 FINDINGS: The right thyroid lobe measures 6.4 x 2.1 x 1.5 cm. The left thyroid lobe measures 4.9 x 1.6 x 1.3 c m. In the right thyroid lobe, there is a 2.9 cm solid, hypoechoic, wider than tall nodule with ill-d efined margin without echogenic foci (TI-RADS TR4). IMPRESSION: 1. Right thyroid nodule, stable from 09/09/2011, likely benign. Reviewed, dictated and finalized at location E.
== END ==
DX: E04.1 Nontoxic single thyroid nodule (principal); R22.1 Localized swelling, mass and lump, neck
CPT/HCPCS: 70491; 76536; Q9967

== ENCOUNTER → 2023-04-02 08:08 | Outpatient (CLI) | payer BC, MEDICARE, SELFPAY ==
--- NOTE | ~2023-04-02 | MR_ITS ---
EXAMINATION: MR knee RT wo con DATE: 04/02/2023 08:57 INDICATION: Primary osteoarthritis at the right knee. TECHNIQUE: Magnetic resonance imaging (MRI) of the right knee was performed without intravenous contr ast. Sequences included coronal PD-weighted FSE, coronal PD-weighted FS FSE, sagittal T2-weighted FS E, sagittal PD-weighted FS FSE and axial PD weighted fat saturated FSE. COMPARISON: None. FINDINGS: Medial compartment: There is medial extrusion of the medial meniscus without a definitive meniscal tear. There is extensi ve cartilage loss involving greater than 50% the cartilage thickness but without degenerative subchon dral changes along the anterior to central weightbearing medial femoral condyle. Additional deep loly dral ulceration with mild underlying edema-like signal change at the anteromedial aspect of the media l tibial plateau. Lateral compartment: Lateral meniscus is normal. There is mild partial-thickness cartilage loss with subtle chondral surfa ce irregularity at the posterior half the lateral tibial plateau as well as at the central weightbear ing lateral femoral condyle. No degenerative subchondral changes. Patellofemoral compartment: Partial-thickness chondral ulceration and deep fissuring without degenerative subchondral changes at the medial and lateral patellar facets and intervening apical ridge as well as at the trochlear groov e and inferior aspect of the medial trochlea. Deep chondral ulceration still without degenerative sub chondral changes at the lateral trochlea. Ligaments and tendons: Anterior and posterior cruciate ligaments are normal. The fibular collateral ligament complex is norm al. Mild thickening and mild increased signal of the proximal medial collateral ligament without surr ounding edema consistent with mild scarring related to chronic sprain. Mild tendinopathy/enthesopathy without tear at the distal quadriceps and proximal patellar tendons. The visualized medial and later al hamstring tendons as well as the iliotibial band are normal. Fluid: Minimal right knee joint effusion and the medial and lateral gutters of the suprapatellar pouch. No l oose osteochondral bodies identified. Osseous/other: A couple small low signal intensity bone islands at the lateral femoral condyle. Aside from the previ ous noted mild degenerative articular edema-like signal change at the medial tibial plateau with ther e is otherwise normal marrow signal. No fracture or pathologic marrow replacing process. IMPRESSION: 1. Medial extrusion of the medial meniscal body without definitive tear. 2. Tricompartmental osteoarthritis, moderate to severe in the medial compartment with extensive moder ate and high-grade chondromalacia and mild with additional moderate grade chondromalacia in the later al and patellofemoral compartments. 3. Likely chronic sprain with mild scarring at the proximal medial collateral ligament. Reviewed, dictated and finalized at location A. [employer] IMPRESSION: 1. Medial extrusion of the medial meniscal body without definitive tear. 2. Tricompartmental osteoarthritis, moderate to severe in the medial compartmen t with extensive moderate and high-grade chondromalacia and mild with additiona l moderate grade chondromalacia in the lateral and patellofemoral compartments. 3. Likely chronic sprain with mild scarring at the proximal medial collateral l igament.
== END ==
PROVIDERS: PCP Family Medicine; Visit Provider Orthopaedic Surgery
DX: M17.11 Unilateral primary osteoarthritis, right knee (principal); M94.261 Chondromalacia, right knee
CPT/HCPCS: 73721

== ENCOUNTER 2023-05-15 09:53 | Outpatient (CLI) | payer BC, MEDICARE, SELFPAY ==
[2023-05-15 11:06] LABS: Basophils Percent Auto 0.3 % (0.2-1.2); Eosinophils Absolute Auto 0.2 K/mm3 (0-0.3); Hemoglobin 15.3 g/dL (12.0-15.0); Immature Granulocyte Absolute 0.02 K/mm3 (0.00-0.031); Immature Granulocyte Percent A 0.3 % (0-0.5); Lymphocytes Absolute Auto 2.34 K/mm3 (0.9-3.2); Lymphocytes Percent Auto 30.9 % (18.3-44.2); Mean Corpuscular HGB Conc 31.2 g/dl (32-36); Mean Corpuscular Hemoglobin 27.4 pg (26-34); Mean Corpuscular Volume 87.8 fl (80-100); Mean Platelet Volume 11.4 fl (7.4-10.4); Monocytes Absolute Auto 0.7 K/mm3 (0.1-0.6); Monocytes Percent Auto 8.7 % (2.6-8.5); Neutrophils Absolute Auto 4.4 K/mm3 (1.3-6.7); Neutrophils Percent Auto 57.8 % (45.5-73.1); Platelet Count Result 369 k/mm3 (150-375); Red Blood Count 5.58 M/mm3 (4.2-5.4); Red Cell Distribution Width 16.9 % (11.5-14.5); White Blood Count 7.6 K/mm3 (4.5-10.0)
[2023-05-15 11:16] LABS: Urine Cotinine NEGATIVE
[2023-05-15 11:36] LABS: Albumin Level 4.3 g/dL (3.5-5.1); Estimated Glomerular Filt Rate > 60; Glucose 88 mg/dL (65-110)
[2023-05-15 12:15] LABS: Hemoglobin A1C 5.5 % (<5.7)
== END 2023-05-15 09:54 | disposition home or self-care (01) ==
LOC: ANHSURGERY 09:58
PROVIDERS: PCP Family Medicine; Visit Provider Orthopaedic Surgery
DX: Z01.818 Encounter for other preprocedural examination (principal); M17.11 Unilateral primary osteoarthritis, right knee
CPT/HCPCS: 80307; 82040; 82565; 82947; 83036; 85025; 86850; 86900; 86901; 87081

== ENCOUNTER 2023-05-27 16:38 | Observation (INO) | payer BC, MEDICARE, SELFPAY ==
[2023-05-15 10:01] VITALS: BMI 39.1
--- NOTE | 2023-05-15 10:31 | PC.NURSE ---
Report to the Outpatient Waiting Room, entrance under the green pavilion located off [facility], at time _0830 on date05/26/23 . Planned Procedure Time: __1030 . Time changes happen often and if your time is changed the preop area will call you the afternoon before. - You and your visitor will be asked to self-screen and do not enter if you have any COVID symptoms. - A mask is optional within the hospital at this time. Patients may have clear liquids (water, carbonated beverages, clear teas, apple juice) until 3 hours prior to surgery( 7:30 AM ) with a maximum of 20 ounces. - No food from midnight until time of surgery - Infants may have breast milk until 4 hours before surgery, formula 6 hours prior to surgery. - Children will be allowed to drink immediately following surgery. If applicable, please bring a bottle or sippy cup to assist with drinking. Juice, water, soda, and popsicles are readily available. For infants on formula, please bring formula the day of surgery. Pacifiers are allowed. Take the following medications with a SIP of water the morning of surgery: __DULOXETINE DO NOT STOP ANY OF YOUR OTHER PRESCRIPTION MEDICATIONS PRIOR TO SURGERY ?EXCEPT THE FOLLOWING Medications to discontinue per physician __HOLD ALL VITAMINS AND SUPPLEMENTS 3 DAYS PRE OP.LAST DOSE 05/22/23. PT STATES HOLD AZATHIOPRINE AND SULFASALAZINE 2 WKS PRE OP PER UPFITTER .LAST DOSE 05/11/23, HOLD OZEMPIC 10 DAYS PRE OP PER ANESTHESIA LAST DOSE 05/09/23 MAY TAKE TYLENOL IF NEEDED FOR PAIN Please no make-up, nail greenlandic, hairspray, perfume, deodorant, or body powder the day of surgery. No jewelry (including any body piercings) or valuables the day of surgery, leave them at home. Please take a shower or bath the night before, or the morning of, surgery with an antibacterial soap. Wear comfortable, loose fitting clothing. Children are encouraged to wear pajamas. - Jewelry must be removed prior to entering the operating room. Rings and piercings that are not removed may be cut off. - The hospital will not accept responsibility for valuables. - Please leave all valuables, including medications, at home the day of surgery. If you are going home after surgery, a licensed armored car driver must drive you home. - NO public transportation without another adult if you receive anesthesia. - We recommend that an adult stay with you for 24 hours following discharge. - We also recommend that you do not drive, make important decision, drink alcoholic beverages, or take any drugs that were not prescribed by your health care provider for at least 24 hours after your discharge time. Follow any additional instructions given to you from your surgeon. If you or anyone in your household have experienced Covid symptoms in the past week, please notify your surgeon or the nurse liaison at the phone number below for possible testing. VERBAL AND WRITTEN instructions given to __PATIENT and asked if any additional questions and then verbalized understanding. Patient advised to call surgeon office or pre surgery nurse liaison [phone] if any additional questions.
[2023-05-15 10:47] VITALS: BP 120/86; PULSE 89; RESP 18; TEMP 36.7; O2SAT 97
--- NOTE | 2023-05-22 08:24 | PM.IMHP ---
H&P: HPI History of Present Illness Date/Time: 05/22/23 08:24 Chief Complaint: Osteoarthritis right knee. Narrative: Patient has osteoarthritis right knee. She has failed conservative treatment like to consider replacement surgery. Of note is the fact she has a knee replacement on the left knee and has done well from that. Review of Systems Musculoskeletal: Musculoskeletal: Reports arthralgias and Reports joint swelling PMFSH Past Medical History Medical History Acid reflux Anemia Anxiety Arthritis Arthritis of knee, right Crohn's proctitis She notes it has been labelled on the Crohn's umbrella, but denies actually having Crohn's Cyst of ovary Depression Endometriosis Enteropathic arthritis Fibroids Fibromyalgia (~2008) Heart disease Hiatal hernia IBS (irritable bowel syndrome) Insomnia Interstitial cystitis Pleural effusion Psoriatic arthritis (~2019) Restless leg syndrome UTI (urinary tract infection) Vitamin D deficiency Surgical History Surgical History History of bladder surgery History of breast surgery right - excision abscess 2019 History of cholecystectomy 2005 History of dilation and curettage 2008 - 2009 multiple History of gastric bypass 2015 History of left knee replacement February 2020 - [place] History of parotid gland excision benign tumour - 2010 History of repair of rectocele 2019 History of wisdom tooth extraction S/P endometrial ablation S/P partial hysterectomy Thyroid tumor, benign cyst excision - 1993 Family History Family History Father Hypertension Family history of elevated blood lipids Family history of arthritis Mother Hypertension Family history of elevated blood lipids Family history of osteoporosis Family history of malignant neoplasm of breast Grandparent Family history of osteoporosis Hypertension Family history of Alzheimer's disease Family history of emphysema Family history of malignant neoplasm of ovary Sibling Hypertension Family history of arthritis Other Alcoholism Asthma Social History Social History (Updated 04/23/23 @ 12:34 by Gillian Pelaez CMA) Smoking packs per day: 1 Smoking cigarettes per day: 20.0 Years smoked: 5 Smoking pack-years: 5.00 Smoking status: Former smoker Tobacco type: cigarettes Smoking end date: 05/12/00 Additional smoking assessment comments: DENIES ANY FORM OF TOBACCO USE Alcohol intake: never Substance use: current Substance use type: marijuana Other substance usage details: medicinal marijuana gummies Lack of Transportation: YES Lack of Food: Never True Current Housing: I Have Housing Concerned About Future Housing: No Difficulty Paying Gas/Electric Bills: No Difficulty Paying for Meds: No Currently Unemployed: No Education: Bachelor's Degree Difficulty w/ Childcare or Family Care: No Living arrangements: with family Additional living arrangements comments: lives with and kids Occupation/Education: unemployed Additional occupation/education comments: disabled Gender identity (if verbalized by the patient): Female Sexual Orientation (if Verbalized by the Patient): Straight or Heterosexual Spiritual care concerns: No Meds Home Medications and Allergies Home Medications Medication Instructions Recorded Confirmed Type calcium carbonate 600 mg calcium 600 mg PO TID 06/06/20 05/15/23 History (1,500 mg) tablet (Calcium) duloxetine 60 mg capsule,delayed 60 mg PO BID #60 caps 06/15/21 05/15/23 Rx release cholecalciferol (vitamin D3) 125 125 mcg PO DAILY 02/08/22 05/15/23 History mcg (5,000 unit) tablet (Vitamin D3) divalproex 500 mg tablet,extended 500 mg PO BID ADHD 02/08/22 05/15/23 History release 24 hr multivitamin 1 t
[2023-05-26] VITALS (16 sets, daily range): BP systolic 109–156; BP diastolic 60–105; PULSE 75–109; RESP 13–24; TEMP 35.9–36.7; O2SAT 92–100
--- NOTE | 2023-05-26 06:57 | WPDHPUPDATE1 ---
History and Physical Update Update Date/Time: 05/26/23 06:57 History and Physical has been reviewed, including an updated exam of the patient. There are NO changes in the patient's condition. Risks, benefits, and alternatives have been discussed and questions answered. Patient agrees to proceed with procedure.
--- NOTE | 2023-05-26 07:25 | WPDANESEPPF ---
Anes - Initial Pre Proc Eval Procedure: Operation Date: 05/26/23 10:30 Proposed Procedures p Right Total Knee Arthroplasty - Geovanny Cyr MD Date/Time: 05/26/23 07:25 Surgeon: Geovanny Cyr MD Pre Op Diagnosis: Aliya Gould Knee Patient Data Age: 48 Gender: F Height: 1.8 m Weight: 127.3 kg Last Vital Signs Temp 36.7 C 05/15/23 10:47 Pulse 89 05/15/23 10:47 Resp 18 05/15/23 10:47 BP 120/86 05/15/23 10:47 Pulse Ox 97 05/15/23 10:47 O2 Del Method Room Air 05/15/23 10:47 Allergies Allergy/AdvReac Type Severity Reaction Status Date / Time amoxicillin Allergy Severe Hives Verified 05/15/23 10:04 Penicillins Allergy Severe Hives Verified 05/15/23 10:04 adhesive Allergy Intermediate BLISTERS/RA Verified 05/15/23 10:04 SH latex Allergy Intermediate Rash Verified 05/15/23 10:04 clindamycin Allergy Mild Swelling Verified 05/15/23 10:04 zolpidem [From Ambien] AdvReac Intermediate sleep Verified 05/15/23 10:04 walking azithromycin AdvReac Mild Nausea and Verified 05/15/23 10:04 Vomiting ibuprofen AdvReac Mild Heartburn Verified 05/15/23 10:04 Home Medications Medication Instructions Recorded Confirmed Type calcium carbonate 600 mg calcium 600 mg PO TID 06/06/20 05/15/23 History (1,500 mg) tablet (Calcium) duloxetine 60 mg capsule,delayed 60 mg PO BID #60 caps 06/15/21 05/15/23 Rx release cholecalciferol (vitamin D3) 125 125 mcg PO DAILY 02/08/22 05/15/23 History mcg (5,000 unit) tablet (Vitamin D3) divalproex 500 mg tablet,extended 500 mg PO BID ADHD 02/08/22 05/15/23 History release 24 hr multivitamin 1 tablet PO DAILY 02/08/22 05/15/23 History golimumab 12.5 mg/mL intravenous See Rx Instructions IV .[id number] 06/12/22 05/15/23 History solution (Simponi ARIA) gabapentin 600 mg tablet 600 mg PO HS 11/24/22 05/15/23 History ropinirole 1 mg tablet 1 mg PO BID RLS 11/24/22 05/15/23 History eszopiclone 3 mg tablet (Lunesta) 3 mg PO QHS #30 tabs 12/26/22 05/15/23 Rx azathioprine 100 mg tablet 150 mg PO DAILY 01/23/23 05/15/23 History acetaminophen 500 mg capsule 1,000 mg PO PRN PRN Pain 05/15/23 05/15/23 History aripiprazole 10 mg tablet 10 mg PO DAILY 05/15/23 05/15/23 History docusate sodium 50 mg capsule 50 mg PO DAILY 05/15/23 05/15/23 History (Stool Softener) famotidine 40 mg tablet 40 mg PO QPM 05/15/23 05/15/23 History semaglutide 1 mg/dose (4 mg/3 mL) 1 mg subcut WEEKLY WEIGHT LOSS 05/15/23 05/15/23 History subcutaneous pen injector (Ozempic) sulfasalazine 500 mg 500 mg PO BID 05/15/23 05/15/23 History tablet,delayed release tramadol 50 mg tablet 50 mg PO PRN PRN Pain 05/15/23 05/15/23 History rivaroxaban 10 mg tablet (Xarelto) 10 mg PO DAILY PE prophylaxis s/p 05/23/23 Rx joint replacement surgery #14 tabs Patient hx anesthesia problems: none Family hx anesthesia problems: none Results Review: All pre-operative results and documents have been reviewed as part of the pre-operative evaluation. [facility] Past Medical History Medical History (Updated 05/26/23 @ 07:43 by Paul Grace DO) Acid reflux Anemia Anxiety Arthritis Arthritis of knee, right Angeles esophagus Crohn's proctitis She notes it has been labelled on the Crohn's umbrella, but denies actually having Crohn's Cyst of ovary Depression Endometriosis Enteropathic arthritis Fibroids Fibromyalgia (~2008) Heart disease Hiatal hernia IBS (irritable bowel syndrome) Insomnia Interstitial cystitis Pleural effusion Psoriatic arthritis (~2019) Restless leg syndrome UTI (urinary tract infection) Vitamin D deficiency Surgical History Surgical History History of bladder surgery History of breast surgery right - excision abscess 2019 History of cholecystectomy 2005 History of dilation and curettage 2008 - 2009 multiple History of gastric bypass 2015 History of left knee replacement Oct
[2023-05-26] MEDS: TRANEXAMIC ACID 1,000MG/ISO100 1,000 MG/100 ML BAG 200 MG IVPB (09:00)
[2023-05-26] MEDS: LACTATED RINGERS 1,000 ML 30 ML IV CONT ×2 (09:00→12:48)
[2023-05-26] MEDS: ACETAMINOPHEN 500 MG TABLET 1000 MG PO (09:00)
--- NOTE | 2023-05-26 09:23 | WPDANESPNB ---
Anes - Peripheral Nerve Block Date/Time: 05/26/23 09:23 I have discussed with the patient/family/POA the placement of a peripheral nerve block for post-operative pain management, including associated risks, benefits, complications, and side effects. Alternative methods of post-operative analgesia were detailed. Questions were solicited and answers provided to the satisfaction of the patient/family/POA. Time-Out: A pre-procedural Time-Out was completed immediately before starting the procedure and confirmed: Patient Identification, Site, Procedure, Patient Position and the Availability of Requisite Equipment. Clinical Indications: Acute post-operative pain management requested by the operative surgeon. Nerve Block Insertion Note Anes-nerve block: adductor canal right Patient position: supine Skin prep: chlorhexidine Needle: 22 gauge, stimulating, insulated echogenic needle. Needle length: 80 mm Technique: ultrasound Injectate: bupivacaine 0.5% with epi 5 mcg/ml (30cc - no epi) Observations: tolerated well Complications: none Procedure start time:: 1004 Procedure end time:: 1007
[2023-05-26] MEDS: ceFAZolin 3 GM/D5W 100 ML 100 ML IVPB (10:14)
[2023-05-26] MEDS: VANCOMYCIN 2,000 MG/NS 500 ML 2,000 MG/500 ML BAG 250 MG IVPB (10:58)
[2023-05-26] MEDS: GENTAMICIN BONE CEMENT REFOBACIN 1 EACH TOPICAL (11:39)
--- NOTE | 2023-05-26 12:35 | W.PM.PROC2 ---
Procedure Note - Detailed Date of Procedure 05/26/23 Pre-op Diagnosis O.Martha Gould Knee Post-op Diagnosis Same Procedure Performed RIGHT total knee arthroplasty Surgeon Geovanny Cyr MD Anesthesia General Indications Pain and arthritis Description of Procedure The patient was brought to operating room #7. A general anesthetic was administered. Placed on the operating table and sterilely prepped and draped in usual manner. A longitudinal incision was made. Tourniquet inflated to 300 mmHg for a total of 72 minutes. Dissection was carried down to the fascia. Medial parapatellar incision was made and the patella subluxated laterally. Patella cut from 25 to 15 mm and sized for a 34 mm button. The tibia was cut perpendicular to the long axis and femur cut in 5 degrees of valgus. A 65 femur trialed. 71 tibia was felt to fit the best. The soft tissue balanced, hemostasis obtained. All [address], 71 tibia, 65 femur, 34 mm patella, and 12 mm poly. At this point is I have been sorting the 12 millimeter plastic the tibia seemed to loosen or pop medially was stable on extension but not flexion. I do not think this was acceptable so I removed the femur gently extended internally rotated the femur and placed the posterior stabilized femur with a 12 PS Plus poly get the most stability please this gave motion 0 to over 120? and she seemed to be stable in both flexion and extension at this time. [employer] Estimated Blood Loss 200 Drains No Packing No Pathology None sent Complications Other complications ( Medial ligament loosened.) Condition Stable Disposition PACU [facility] Billing Surgery - Charge Forward: Surgery Billing ([id number])
[2023-05-26] MEDS: fentaNYL CITRATE INJ (*CRX) 100 MCG/2 ML VIAL 25 MCG IV PUSH ×8 (12:39→12:53)
[2023-05-26] MEDS: HYDROmorphone HCL INJ (*CRX) 1 MG/ML SYR 0.5 MG IV PUSH ×4 (13:05→13:30)
[2023-05-26] MEDS: MIDAZOLAM HCL (*CRX) 2 MG/2 ML VIAL IV PUSH ×2 (13:49→13:50)
--- NOTE | 2023-05-26 13:53 | WPDANESPNB ---
Anes - Peripheral Nerve Block Date/Time: 05/26/23 13:53 I have discussed with the patient/family/POA the placement of a peripheral nerve block for post-operative pain management, including associated risks, benefits, complications, and side effects. Alternative methods of post-operative analgesia were detailed. Questions were solicited and answers provided to the satisfaction of the patient/family/POA. Time-Out: A pre-procedural Time-Out was completed immediately before starting the procedure and confirmed: Patient Identification, Site, Procedure, Patient Position and the Availability of Requisite Equipment. Clinical Indications: Acute post-operative pain management requested by the operative surgeon. Nerve Block Insertion Note Anes-nerve block: adductor canal right Patient position: supine Skin prep: chlorhexidine Needle: 22 gauge, stimulating, insulated echogenic needle. Needle length: 80 mm Technique: ultrasound Injectate: bupivacaine 0.5% with epi 5 mcg/ml (30cc - no epi) Observations: tolerated well Complications: none Procedure start time:: 1344 Procedure end time:: 1347
--- NOTE | 2023-05-26 15:22 | WPDCN ---
Assessment and Plan Assessment and plan (1) Arthritis of knee, right: Code(s): M17.11 - Unilateral primary osteoarthritis, right knee Status: Chronic Assessment and Plan: Postoperative day 0 status post right knee arthroplasty. Wound care, pain control, DVT prophylaxis deferred to primary service. She has oozing at the incision site treated with Surgicel and compressive dressing. Repeat hemoglobin and hematocrit is pending if evening. (2) Depression with anxiety: Code(s): F41.8 - Other specified anxiety disorders Status: Acute Assessment and Plan: Well controlled on divalproex and aripiprazole. (3) Psoriatic arthritis: Onset Date: ~2019 Code(s): L40.50 - Arthropathic psoriasis, unspecified Status: Acute Assessment and Plan: Off biologics 2 weeks prior to and 2 weeks following surgery. (4) Inflammatory bowel disease: Code(s): K52.9 - Noninfective gastroenteritis and colitis, unspecified Status: Acute Assessment and Plan: Off biologics 2 weeks prior to and 2 weeks following surgery. Plan Thank you for allowing us to participate in this patient's care. Please do not hesitate to contact us with any questions. HPI Data of Consult Date/Time: 05/26/23 17:00 Requesting Physician: Geovanny Cyr MD Consult Narrative Reason for consult: Medical management. Narrative: This is a pleasant 48-year-old female with osteoarthritis, psoriatic arthritis, hypertension, recurrent syncope and syncope status post loop recorder implantation, and obstructive sleep apnea on CPAP whom the hospitalist service has been consulted for help managing her medical conditions postoperatively. She reports longstanding pain in her right knee which has not been amenable to conservative outpatient treatment and she elected for replacement today. Her surgery was performed under general anesthesia with an estimated blood loss of 200 mL. Postoperatively she has had consistent oozing from the incision site and has blood through several dressings. Her pain has not been well controlled despite receiving a regional block. She reports a sharp and stabbing pain over the incision site. She has not been up as of yet and is to be nonweightbearing on that leg for the next [address] Cyr. Aside from the pain she reports having difficulties urinating and on to say that she does intermittent catheterization at home when needed. She denies fever, chills, sweats, chest pain, shortness a breath, nausea, and vomiting. She has been off of her biologics for 2 weeks prior to the surgery and is to remain off of them for 2 weeks following the surgery. She has chronic pain related to her psoriatic arthritis which seems to be a bit worse now that she is off these medications. She does wear his CPAP at nighttime. No history of venous thromboembolism although her dad from a pulmonary embolism a younger age. The remainder of her chronic medical conditions are well controlled on medication. Review of Systems Review of Systems: Twelve systems were reviewed and are negative except for as per HPI. [facility] Past Medical History Medical History (Updated 05/26/23 @ 20:48 by Deborah Ross PA-C) Acid reflux Anemia Anxiety Arthritis Angeles esophagus Crohn's proctitis She notes it has been labelled on the Crohn's umbrella, but denies actually having Crohn's Depression Depression with anxiety Endometriosis Enteropathic arthritis Fibroids Fibromyalgia (~2008) Hiatal hernia Inflammatory bowel disease Insomnia Interstitial cystitis Irritable bowel syndrome Psoriatic arthritis (~2019) Restless leg syndrome Vitamin D deficiency Surgical History Surgical History History of arthroplasty of right knee (05/26/23) History of bladder surgery History of breast surgery (2019) Incision and drainage of right breast
[2023-05-26] MEDS: HYDROcodone/acetaminophen (*CRX) 7.5-325 MG TABLET 1 TAB PO (15:30)
[2023-05-26] MEDS: SODIUM CHLORIDE 0.9% IV 1,000 ML 125 ML IV CONT (15:31)
--- NOTE | 2023-05-26 15:38 | ADMGEN ---
This patient, Corrie Lieberman, was admitted to [facility] Surg Room 321-02. Patient/family oriented to hospital policies and general routines including ID bracelet, bed and alarms, visiting hours, pain management, procedures, bathroom and other care routines, personal items, smoking policy, room service/diet, and visiting hours. Information on how to activate the Rapid Response Team has been discussed. Patient/Family are encouraged to report perceived risks to care and to ask questions if they do not understand what they are told or what they should do.
[2023-05-26 17:07] LABS: Hematocrit 39.2 % (37.0-47.0); Hemoglobin 12.1 g/dL (12.0-15.0)
[2023-05-26] MEDS: HYDROmorphone HCL INJ (*CRX) 1 MG/ML SYR IV PUSH (17:57)
[2023-05-26] MEDS: CELECOXIB 200 MG CAPSULE PO (18:45)
[2023-05-26] MEDS: SENNA/DOCUSATE SODIUM TABLET 2 TAB PO (18:45)
[2023-05-26] MEDS: CELLULOSE OXIDIZED 2 x 14 INCH 1 PKT XX (18:46)
[2023-05-26] MEDS: ceFAZolin 2 GM/D5W 50 ML 2 GM/50 ML BAG IVPB (18:46)
[2023-05-26] MEDS: CYCLOBENZAPRINE HCL 10 MG TABLET PO (18:46)
[2023-05-26] MEDS: HYDROcodone/acetaminophen (*CRX) 5-325 MG TABLET 1 TAB PO ×2 (19:46→23:39)
[2023-05-26] MEDS: DULoxetine HCL 60 MG CAPSULE.DR PO (19:46)
[2023-05-26] MEDS: DIVALPROEX SODIUM ER 500 MG TAB.24H PO (20:06)
[2023-05-26] MEDS: WATER FOR IRRIGATION, STERILE 1,000 ML BOTTLE 1000 ML (22:25)
[2023-05-26 23:09] LABS: Hematocrit 36.9 % (37.0-47.0); Hemoglobin 11.5 g/dL (12.0-15.0)
[2023-05-27] VITALS (7 sets, daily range): BP systolic 100–121; BP diastolic 56–69; PULSE 88–108; RESP 12–20; TEMP 36.1–37.2; O2SAT 93–99
--- NOTE | ~2023-05-27 | XR_ITS ---
Right Knee Technique: Portable AP and crosstable lateral views Clinical History: Status post TKR Findings: Patient is status post total knee replacement. Orthopedic hardware alignment appears anatom ic. No hardware complication is evident. Subcutaneous emphysema and swelling is likely postoperative in nature. No acute osseous fracture is seen. Impression: Status post total knee replacement, without evidence of hardware complication. Reviewed, dictated and finalized at location . RNATIONAL ACCOUNT REPRESENTATIVE Impression: Status post total knee replacement, without evidence of hardware complication.
[2023-05-27] MEDS: ceFAZolin 2 GM/D5W 50 ML 2 GM/50 ML BAG IVPB ×2 (02:33→10:09)
[2023-05-27] MEDS: CYCLOBENZAPRINE HCL 10 MG TABLET PO ×3 (04:23→21:38)
[2023-05-27] MEDS: HYDROcodone/acetaminophen (*CRX) 5-325 MG TABLET 1 TAB PO ×4 (04:23→20:39)
[2023-05-27 07:06] LABS: Basophils Percent Auto 0.1 % (0.2-1.2); Eosinophils Percent Auto 0.1 % (0-4.4); Hematocrit 36.4 % (37.0-47.0); Hemoglobin 11.2 g/dL (12.0-15.0); Immature Granulocyte Absolute 0.02 K/mm3 (0.00-0.031); Immature Granulocyte Percent A 0.2 % (0-0.5); Lymphocytes Absolute Auto 2.23 K/mm3 (0.9-3.2); Lymphocytes Percent Auto 26.6 % (18.3-44.2); Mean Corpuscular HGB Conc 30.8 g/dl (32-36); Mean Corpuscular Hemoglobin 27.6 pg (26-34); Mean Corpuscular Volume 89.7 fl (80-100); Mean Platelet Volume 12.4 fl (7.4-10.4); Monocytes Absolute Auto 1.4 K/mm3 (0.1-0.6); Monocytes Percent Auto 16.1 % (2.6-8.5); Neutrophils Absolute Auto 4.8 K/mm3 (1.3-6.7); Neutrophils Percent Auto 56.9 % (45.5-73.1); Platelet Count Result 272 k/mm3 (150-375); Red Blood Count 4.06 M/mm3 (4.2-5.4); Red Cell Distribution Width 16.1 % (11.5-14.5); White Blood Count 8.4 K/mm3 (4.5-10.0)
[2023-05-27 07:16] LABS: Alanine Aminotransferase 12 U/L (6-35); Albumin Level 3.3 g/dL (3.5-5.1); Alkaline Phosphatase 65 U/L (38-126); Anion Gap 4 mmol/L (8-16); Aspartate Amino Transferase 23 U/L (14-36); Bilirubin,Total 0.4 mg/dL (0.2-1.3); Blood Urea Nitrogen 9 mg/dL (7-17); Carbon Dioxide 30 mmol/L (22-30); Chloride 102 mmol/L (98-107); Estimated CRCL calculation 177 ml/min; Estimated Glomerular Filt Rate > 60; Glucose 104 mg/dL (65-110); Magnesium 1.8 mg/dL (1.6-2.3); Potassium 3.7 mmol/L (3.4-5.0); Sodium 136 mmol/L (137-145)
--- NOTE | 2023-05-27 08:12 | WPDANESPN ---
Anes - Prog Note Post-Op Date/Time: 05/27/23 08:12 Cardiovascular status: normal Respiratory status: normal Airway patency: baseline Mental status: baseline Post-Op hydration status: normal Vital Signs: Last Vital Signs Temp 37.2 C 05/27/23 04:48 Pulse 88 05/27/23 04:48 Resp 12 05/27/23 04:48 BP 112/58 L 05/27/23 04:48 Pulse Ox 93 05/27/23 04:48 O2 Del Method Room Air 05/26/23 23:39 O2 Flow Rate 2 05/26/23 14:35 Pain Score (VAS): 07/19 I/O: Intake & Output 05/26/23 05/27/23 05/27/23 23:59 07:59 15:59 Intake Total 50 1050 Output Total 1050 650 Balance -1000 400 Laboratory Tests 05/27/23 06:44 05/27/23 06:44 05/26/23 05/26/23 05/27/23 16:59 23:03 06:44 WBC 8.4 RBC 4.06 L Hgb 12.1 D 11.5 L 11.2 L Hct 39.2 36.9 L 36.4 L MCV 89.7 MCH 27.6 MCHC 30.8 L RDW 16.1 H Plt Count 272 MPV 12.4 H Immature Gran % (Auto) 0.2 Neut % (Auto) 56.9 Lymph % (Auto) 26.6 Gillespie % (Auto) 16.1 H Eos % (Auto) 0.1 Baso % (Auto) 0.1 L Lymph # (Auto) 2.23 Gillespie # (Auto) 1.4 H Eos # (Auto) 0.0 Baso # (Auto) 0.0 Abs Immat Gran (auto) 0.02 Absolute Neuts (auto) 4.8 Absolute Nucleated RBC 0.0 Nucleated RBC % 0.0 Sodium 136 L Potassium 3.7 Chloride 102 Carbon Dioxide 30 Anion Gap 4 L BUN 9 D Creatinine 0.50 L Estim Creat Clear Calc 177 Estimated GFR > 60 Glucose 104 Calcium 8.0 L Magnesium 1.8 Total Bilirubin 0.4 Direct Bilirubin 0.0 AST 23 ALT 12 Alkaline Phosphatase 65 Total Protein 7.0 Albumin 3.3 L Post-procedural complaints: none Patient Feedback: Patient satisfied with anesthetic care.
[2023-05-27] MEDS: azaTHIOprine 50 MG TABLET 150 MG PO (08:31)
[2023-05-27] MEDS: DULoxetine HCL 60 MG CAPSULE.DR PO ×2 (08:31→20:39)
[2023-05-27] MEDS: CELECOXIB 200 MG CAPSULE PO ×2 (08:31→18:09)
[2023-05-27] MEDS: RIVAROXABAN 10 MG TABLET PO (08:32)
[2023-05-27] MEDS: SENNA/DOCUSATE SODIUM TABLET 2 TAB PO ×2 (08:32→18:09)
[2023-05-27] MEDS: polyethylene glycoL 3350 17 GM POWD.PACK PO (08:33)
[2023-05-27] MEDS: DIVALPROEX SODIUM ER 500 MG TAB.24H PO ×2 (10:52→20:39)
[2023-05-27] MEDS: ARIPiprazole 10 MG TABLET PO (10:52)
--- NOTE | 2023-05-27 10:54 | PM.IMPN ---
Progress Note: A&P Assessment and Plan (1) Arthritis of knee, right: Code(s): M17.11 - Unilateral primary osteoarthritis, right knee Status: Chronic Assessment and Plan: S/p right knee arthroplasty 05/26 Wound care, pain control, DVT prophylaxis deferred to primary service. 05/26: She has oozing at the incision site treated with Surgicel and compressive dressing. 05/27: Repeat hemoglobin and hematocrit stable (2) Depression with anxiety: Code(s): F41.8 - Other specified anxiety disorders Status: Acute Assessment and Plan: Well controlled on divalproex and aripiprazole. (3) Psoriatic arthritis: Onset Date: ~2019 Code(s): L40.50 - Arthropathic psoriasis, unspecified Status: Acute Assessment and Plan: Off biologics 2 weeks prior to and 2 weeks following surgery. (4) Inflammatory bowel disease: Code(s): K52.9 - Noninfective gastroenteritis and colitis, unspecified Status: Acute Assessment and Plan: Off biologics 2 weeks prior to and 2 weeks following surgery Holding simponi, sulfasalazine, imuran Cont home famotidine (5) Insomnia: Code(s): G47.00 - Insomnia, unspecified Status: Acute Assessment and Plan: Restart home lunesta, ropinirole Plan Thank you for allowing us to participate in this patient's care. Please do not hesitate to contact us with any questions. DVT prophylaxis with Xarelto GI prophylaxis with home H2 jacinto Code status full code Subjective Date/time seen: 05/27/23 10:54 Interval history: 48-year-old female with osteoarthritis, psoriatic arthritis, hypertension, recurrent syncope and syncope status post loop recorder implantation, and obstructive sleep apnea on CPAP whom the hospitalist service has been consulted for help managing her medical conditions postoperatively. No overnight events noted. No chest pain or shortness of breath. No nausea, vomiting or diarrhea. No fevers or chills. C/o pain, worsening over the course of the day. Review of Systems Review of Systems: 12 point review of systems was assessed and was negative except as noted in the HPI Exam Narrative: General: No acute distress, alert and oriented per baseline HEENT: Atraumatic, normocephalic, mucous membranes moist CV: Regular rate and rhythm, S1, S2 Lungs: Clear to auscultation bilaterally, no rales or crackles noted, no wheezes, good air entry Abdomen: Soft, nontender, nondistended Extremities: Normal to inspection Skin: No rashes noted, no lesions or wounds seen Psych: Euthymic, normal affect Objective Data Vital Signs Vital Signs: Vital Signs - 24 hr 05/26/23 12:35 05/26/23 12:50 05/26/23 13:05 Temperature 98.1 F Pulse Rate 96 104 H 109 H Respiratory Rate 16 17 14 Blood Pressure 156/90 H 153/96 H 142/95 H Pulse Oximetry 100 100 97 Oxygen Delivery Simple Face Mask Room Air Room Air Oxygen Flow Rate 10 05/26/23 13:20 05/26/23 13:35 05/26/23 13:50 Temperature Pulse Rate 107 H 96 95 Respiratory Rate 16 13 18 Blood Pressure 136/91 H 145/100 H 139/105 H Pulse Oximetry 98 98 92 Oxygen Delivery Room Air Room Air Nasal Cannula Oxygen Flow Rate 2 05/26/23 14:05 05/26/23 14:20 05/26/23 14:35 Temperature Pulse Rate 86 75 104 H Respiratory Rate 15 14 24 H Blood Pressure 156/103 H 146/100 H 138/83 Pulse Oximetry 97 97 100 Oxygen Delivery Nasal Cannula Nasal Cannula Nasal Cannula Oxygen Flow Rate 2 2 2 05/26/23 14:50 05/26/23 15:40 05/26/23 15:55 Temperature 96.8 F L 96.7 F L Pulse Rate 91 89 88 Respiratory Rate 15 16 18 Blood Pressure 145/79 H 146/87 H 132/79 Pulse Oximetry 94 95 92 Oxygen Delivery Room Air Oxygen Flow Rate 05/26/23 15:30 05/26/23 16:25 05/26/23 17:25 Temperature 97.1 F L 97.7 F Pulse Rate 105 H 98 Respiratory Rate 16 16 Blood Pressure 127/71 109/60 Pulse Oximetry 97 95 Oxygen Delivery Room Air Oxygen
--- NOTE | 2023-05-27 12:11 | PM.PNORT ---
Progress Note: A&P Assessment and Plan (1) Osteoarthritis of right knee: Code(s): M17.11 - Unilateral primary osteoarthritis, right knee Status: Acute Assessment and Plan: Patient is status post total knee arthroplasty right. During insertion of the liner she developed laxity posterior medially. By slightly rotatiing the femur and placing in a more constrained component, the laxity seemed to have been taken care. I have told her she needs to be in a brace when she is up and around. She can will put full weight on it as tolerated. If she has any changes or problems she will call discussed. Because the nerve block has not worn off at this time I do not think she should walk on the abdomen and that will hold discharge until she is her strength returns. (2) Morbid obesity: Code(s): E66.01 - Morbid (severe) obesity due to excess calories Status: Acute Subjective Subjective Date/Time Seen: 05/27/23 12:11 Post Op day: 1 Principal diagnosis: Osteoarthritis right knee. Interval history: Patient is status post total knee arthroplasty right. She is having some pain control issues which again nerve block which is not worn off so it is not safe for her to walk at this time. Review of Systems Musculoskeletal: Musculoskeletal: Reports arthralgias and Reports joint swelling Exam Narrative: On exam the patient can wiggle her toes. Calf is soft. Dressing is intact. Objective Data Vital Signs Vital Signs: Vital Signs - 24 hr 05/26/23 12:35 05/26/23 12:50 05/26/23 13:05 Temperature 98.1 F Pulse Rate 96 104 H 109 H Respiratory Rate 16 17 14 Blood Pressure 156/90 H 153/96 H 142/95 H Pulse Oximetry 100 100 97 Oxygen Delivery Simple Face Mask Room Air Room Air Oxygen Flow Rate 10 05/26/23 13:20 05/26/23 13:35 05/26/23 13:50 Temperature Pulse Rate 107 H 96 95 Respiratory Rate 16 13 18 Blood Pressure 136/91 H 145/100 H 139/105 H Pulse Oximetry 98 98 92 Oxygen Delivery Room Air Room Air Nasal Cannula Oxygen Flow Rate 2 05/26/23 14:05 05/26/23 14:20 05/26/23 14:35 Temperature Pulse Rate 86 75 104 H Respiratory Rate 15 14 24 H Blood Pressure 156/103 H 146/100 H 138/83 Pulse Oximetry 97 97 100 Oxygen Delivery Nasal Cannula Nasal Cannula Nasal Cannula Oxygen Flow Rate 2 2 2 05/26/23 14:50 05/26/23 15:40 05/26/23 15:55 Temperature 96.8 F L 96.7 F L Pulse Rate 91 89 88 Respiratory Rate 15 16 18 Blood Pressure 145/79 H 146/87 H 132/79 Pulse Oximetry 94 95 92 Oxygen Delivery Room Air Oxygen Flow Rate 05/26/23 15:30 05/26/23 16:25 05/26/23 17:25 Temperature 97.1 F L 97.7 F Pulse Rate 105 H 98 Respiratory Rate 16 16 Blood Pressure 127/71 109/60 Pulse Oximetry 97 95 Oxygen Delivery Room Air Oxygen Flow Rate 05/26/23 20:35 05/26/23 20:00 05/26/23 23:39 Temperature 97.4 F L Pulse Rate 94 Respiratory Rate 14 Blood Pressure 115/71 Pulse Oximetry 93 Oxygen Delivery Room Air Room Air Oxygen Flow Rate 05/27/23 00:26 05/27/23 04:48 05/27/23 08:00 Temperature 97.0 F L 98.9 F Pulse Rate 98 88 Respiratory Rate 13 12 Blood Pressure 121/69 112/58 L Pulse Oximetry 96 93 Oxygen Delivery Room Air Oxygen Flow Rate 05/27/23 08:31 05/27/23 08:48 Temperature 97.7 F Pulse Rate 88 Respiratory Rate 16 Blood Pressure 114/69 Pulse Oximetry 99 Oxygen Delivery Room Air Oxygen Flow Rate Intake/Output Intake/Output: Intake & Output 05/24/23 05/25/23 05/26/23 05/27/23 23:59 23:59 23:59 23:59 Intake Total 850 1050 Output Total 1050 1050 Balance -200 0 Meds/Results Medications: Active Medications Generic Name Dose Route Start Last Admin Trade Name Freq PRN Reason Stop Dose Admin Hydrocodone Bitart/Acetaminophen 1 tab 05/26/23 15:03 05/26/23 15:30 Hydrocodone/Acetaminophen (*Crx) 7.5-325 Mg Tablet PO 1 tab Q6H PRN Administration Pain Rated 7-10 Hydrocodone Bitart/Boris
--- NOTE | 2023-05-27 16:38 | PHAR ---
HOME MED: Eszopiclone [Lunesta] 3 mg tablet; TAKE 1 TABLET BY MOUTH AT BEDTIME NEEDED FOR 30 DAYS. 7 TABLETS IN THE BOTTLE. VERIFIED BY PHARMACY.
[2023-05-27] MEDS: FAMOTIDINE 20 MG TABLET 40 MG PO (18:09)
[2023-05-27] MEDS: HYDROcodone/acetaminophen (*CRX) 7.5-325 MG TABLET 1 TAB PO (18:09)
[2023-05-27] MEDS: rOPINIRole HCL 1 MG TABLET PO (18:09)
[2023-05-27] MEDS: GABAPENTIN 300 MG CAPSULE 600 MG PO (20:39)
[2023-05-28] MEDS: HYDROcodone/acetaminophen (*CRX) 5-325 MG TABLET 1 TAB PO ×3 (03:42→13:07)
[2023-05-28 04:00] VITALS: BP 115/65; PULSE 101; RESP 13; TEMP 36.9; O2SAT 95
[2023-05-28] MEDS: HYDROcodone/acetaminophen (*CRX) 7.5-325 MG TABLET 1 TAB PO (04:49)
[2023-05-28 06:27] LABS: Hematocrit 35.6 % (37.0-47.0); Hemoglobin 11.2 g/dL (12.0-15.0); Mean Corpuscular HGB Conc 31.5 g/dl (32-36); Mean Corpuscular Hemoglobin 27.8 pg (26-34); Mean Corpuscular Volume 88.3 fl (80-100); Mean Platelet Volume 11.9 fl (7.4-10.4); Platelet Count Result 286 k/mm3 (150-375); Red Blood Count 4.03 M/mm3 (4.2-5.4); Red Cell Distribution Width 16.2 % (11.5-14.5); White Blood Count 8.7 K/mm3 (4.5-10.0)
[2023-05-28] MEDS: SODIUM CHLORIDE 0.9% IV 1,000 ML 999 ML IV CONT (06:36)
[2023-05-28 06:40] LABS: Anion Gap 4 mmol/L (8-16); Blood Urea Nitrogen 11 mg/dL (7-17); Calcium 8.3 mg/dL (8.4-10.2); Carbon Dioxide 30 mmol/L (22-30); Chloride 102 mmol/L (98-107); Estimated CRCL calculation 150 ml/min; Estimated Glomerular Filt Rate > 60; Glucose 105 mg/dL (65-110); Potassium 3.8 mmol/L (3.4-5.0); Sodium 136 mmol/L (137-145)
--- NOTE | 2023-05-28 06:51 | PC.NURSE ---
Pt catheter accidentally removed at some point overnight. Initial concern for decreased urinary output so patient was bladder scanned at 0600 which showed no urine in bladder, catheter was due to be removed this morning so at this point will leave catheter out for voiding trial. Order received for 1L NS bolus for decreased output.
[2023-05-28 07:44] VITALS: BP 116/76; PULSE 96; RESP 20; TEMP 36.2; O2SAT 100
[2023-05-28] MEDS: ARIPiprazole 10 MG TABLET PO (08:54)
[2023-05-28] MEDS: polyethylene glycoL 3350 17 GM POWD.PACK PO (08:54)
[2023-05-28] MEDS: SENNA/DOCUSATE SODIUM TABLET 2 TAB PO (08:55)
[2023-05-28] MEDS: RIVAROXABAN 10 MG TABLET PO (08:55)
[2023-05-28] MEDS: CYCLOBENZAPRINE HCL 10 MG TABLET PO (08:55)
[2023-05-28] MEDS: CELECOXIB 200 MG CAPSULE PO (08:55)
[2023-05-28] MEDS: DIVALPROEX SODIUM ER 500 MG TAB.24H PO (08:55)
[2023-05-28] MEDS: rOPINIRole HCL 1 MG TABLET PO (08:55)
[2023-05-28] MEDS: DULoxetine HCL 60 MG CAPSULE.DR PO (08:55)
--- NOTE | 2023-05-28 11:09 | PM.IMPN ---
Progress Note: A&P Assessment and Plan (1) Arthritis of knee, right: Code(s): M17.11 - Unilateral primary osteoarthritis, right knee Status: Chronic Assessment and Plan: Patient with severe right knee OA now s/p right knee arthroplasty 05/26. She has tolerated the procedure well. Still with considerable pain to the right knee 05/26: She has oozing at the incision site treated with Surgicel and compressive dressing. Plan for knee brace before she bears weight Will defer wound care, pain control and DVT prophylaxis to primary service. (2) Depression with anxiety: Code(s): F41.8 - Other specified anxiety disorders Status: Acute Assessment and Plan: Mood well controlled on her home divalproex and aripiprazole. Continue the same (3) Psoriatic arthritis: Onset Date: ~2019 Code(s): L40.50 - Arthropathic psoriasis, unspecified Status: Acute Assessment and Plan: Off biologics 2 weeks prior to and 2 weeks following surgery. (4) Inflammatory bowel disease: Code(s): K52.9 - Noninfective gastroenteritis and colitis, unspecified Status: Acute Assessment and Plan: Off biologics 2 weeks prior to and 2 weeks following surgery Holding simponi, sulfasalazine, imuran Cont home famotidine (5) Insomnia: Code(s): G47.00 - Insomnia, unspecified Status: Acute Assessment and Plan: Continue home lunesta, ropinirole Plan Thank you for allowing us to participate in this patient's care. Please do not hesitate to contact us with any questions. DVT prophylaxis with Xarelto GI prophylaxis with home H2 jacinto Code status full code Subjective Date/time seen: 05/28/23 11:09 Interval history: 48yo female with osteoarthritis, psoriatic arthritis, hypertension, recurrent syncope and syncope status post loop recorder implantation, and obstructive sleep apnea on CPAP whom the hospitalist service has been consulted for help managing her medical conditions postoperatively. Assuming care. Chart reviewed. She still has considerable amount of pain in the right knee. Pain is mostly lateral right knee. She was given Flexeril which has helped the muscle spasms. The adjustment in her pain medications has not improved her pain however. She is been up to the chair and to the bathroom and is currently nonweightbearing. She denies any chest pain or shortness of breath. No nausea or vomiting. Exam Narrative: AF 97.2 116/76 96 20 100% Gen - NARD Chest - CTA bilaterally, nml RR CV - RRR S1/S2 Abd - Soft, NT/ND, Positive BS Ext - No pedal edema. Right knee dressing clean/dry/intact. minimal right mikayla-knee bruising. Neuro - Alert and oriented. Nonfocal exam. Psych - Nml mood and affect Skin - Warm and dry Objective Data Vital Signs Vital Signs: Vital Signs - 24 hr 05/27/23 12:00 05/27/23 16:00 05/27/23 20:00 Temperature 97.4 F L 98.4 F 98.0 F Pulse Rate 108 H 100 101 H Respiratory Rate 20 18 14 Blood Pressure 114/63 109/61 100/56 L Pulse Oximetry 97 98 95 Oxygen Delivery 05/27/23 23:47 05/28/23 00:00 05/28/23 03:04 Temperature 97.9 F Pulse Rate 100 Respiratory Rate 14 Blood Pressure 103/61 Pulse Oximetry 93 Oxygen Delivery Room Air Room Air 05/28/23 04:00 05/28/23 07:44 05/28/23 08:00 Temperature 98.5 F 97.2 F L Pulse Rate 101 H 96 Respiratory Rate 13 20 Blood Pressure 115/65 116/76 Pulse Oximetry 95 100 Oxygen Delivery Room Air Intake/Output Intake/Output: Intake & Output 05/25/23 05/26/23 05/27/23 05/28/23 23:59 23:59 23:59 23:59 Intake Total 850 1820 980 Output Total 1050 1050 850 Balance -200 770 130 Meds/Results Medications: Active Medications Generic Name Dose Route Start Last Admin Trade Name Freq PRN Reason Stop Dose Admin Hydrocodone Bitart/Acetaminophen 1 tab 05/26/23 15:03 05/28/23 04:49 Hydrocodone/Acetaminophen (*Crx) 7.5-325
[2023-05-28 11:53] VITALS: BP 133/87; PULSE 109; RESP 20; TEMP 36.8; O2SAT 100
--- NOTE | 2023-05-28 11:56 | PM.PNORT ---
Progress Note: A&P Assessment and Plan (1) Morbid obesity: Code(s): E66.01 - Morbid (severe) obesity due to excess calories Status: Acute (2) Osteoarthritis of right knee: Code(s): M17.11 - Unilateral primary osteoarthritis, right knee Status: Acute (3) History of knee replacement procedure of right knee: Code(s): Z96.651 - Presence of right artificial knee joint Status: Inactive Assessment and Plan: Patient day 2 total knee arthroplasty right. Waiting for the brace to come. She is doing well on therapy can be dismissed home. Follow up 10 to 14 days for sutures out. Subjective Subjective Date/Time Seen: 05/28/23 11:56 Post Op day: 2 Principal diagnosis: Osteoarthritis right knee status post total knee Interval history: Patient is doing better. Pain is under control at this time. Getting her brace to avoid any valgus stress on the knee. Review of Systems Musculoskeletal: Musculoskeletal: Reports arthralgias and Reports joint swelling Exam Narrative: On exam the patient can wiggle her toes. Calf is soft. Dressing is intact. Objective Data Vital Signs Vital Signs: Vital Signs - 24 hr 05/27/23 12:00 05/27/23 16:00 05/27/23 20:00 Temperature 97.4 F L 98.4 F 98.0 F Pulse Rate 108 H 100 101 H Respiratory Rate 20 18 14 Blood Pressure 114/63 109/61 100/56 L Pulse Oximetry 97 98 95 Oxygen Delivery 05/27/23 23:47 05/28/23 00:00 05/28/23 03:04 Temperature 97.9 F Pulse Rate 100 Respiratory Rate 14 Blood Pressure 103/61 Pulse Oximetry 93 Oxygen Delivery Room Air Room Air 05/28/23 04:00 05/28/23 07:44 05/28/23 08:00 Temperature 98.5 F 97.2 F L Pulse Rate 101 H 96 Respiratory Rate 13 20 Blood Pressure 115/65 116/76 Pulse Oximetry 95 100 Oxygen Delivery Room Air 05/28/23 11:53 Temperature 98.2 F Pulse Rate 109 H Respiratory Rate 20 Blood Pressure 133/87 Pulse Oximetry 100 Oxygen Delivery Intake/Output Intake/Output: Intake & Output 05/25/23 05/26/23 05/27/23 05/28/23 23:59 23:59 23:59 23:59 Intake Total 850 1820 980 Output Total 1050 1050 850 Balance -200 770 130 Meds/Results Medications: Active Medications Generic Name Dose Route Start Last Admin Trade Name Freq PRN Reason Stop Dose Admin Hydrocodone Bitart/Acetaminophen 1 tab 05/26/23 15:03 05/28/23 04:49 Hydrocodone/Acetaminophen (*Crx) 7.5-325 Mg Tablet PO 1 tab Q6H PRN Administration Pain Rated 7-10 Hydrocodone Bitart/Acetaminophen 1 tab 05/26/23 15:03 05/28/23 08:54 Hydrocodone/Acetaminophen (*Crx) 5-325 Mg Tablet PO 1 tab Q4H PRN Administration Pain Rated 4-6 Aripiprazole 10 mg 05/27/23 09:00 05/28/23 08:54 Aripiprazole 10 Mg Tablet PO 10 mg DAILY KISHA Administration Azathioprine 150 mg 05/27/23 09:00 05/27/23 08:31 Azathioprine 50 Mg Tablet PO 150 mg DAILY KISHA Administration Celecoxib 200 mg 05/26/23 17:00 05/28/23 08:55 Celecoxib 200 Mg Capsule PO 200 mg BIDWM KISHA Administration Cyclobenzaprine HCl 10 mg 05/26/23 15:03 05/28/23 08:55 Cyclobenzaprine Hcl 10 Mg Tablet PO 10 mg Q8H PRN Administration Spasms Divalproex Sodium 500 mg 05/26/23 21:00 05/28/23 08:55 Divalproex Sodium Er 500 Mg Tab.24h PO 500 mg Q12HR KISHA Administration Duloxetine HCl 60 mg 05/26/23 21:00 05/28/23 08:55 Duloxetine Hcl 60 Mg Capsule.Dr PO 60 mg Q12HR KISHA Administration Famotidine 40 mg 05/27/23 18:00 05/27/23 18:09 Famotidine 20 Mg Tablet PO 40 mg QPM KISHA Administration Gabapentin 600 mg 05/27/23 21:00 05/27/23 20:39 Gabapentin 300 Mg Capsule PO 600 mg HS KISHA Administration Naloxone HCl 0.1 mg 05/26/23 15:03 Naloxone Hcl 0.4 Mg/Ml Vial IV PUSH Q2M PRN Opiate Reversal Eszopiclone [Lunesta 3 mg 05/27/23 21:00 05/27/23 21:38 ] 3 Mg Tablet Home PO 06/26/23 20:59 3 mg Med QHS PRN Administration Sleep
--- NOTE | 2023-05-28 11:58 | PM.DS ---
DS: Admitting Diagnosis Discharge Date 05/26/2023 Admitting Diagnosis Osteoarthritis right knee. DS: Discharge Diagnosis Discharge Diagnosis (1) History of knee replacement procedure of right knee: Code(s): Z96.651 - Presence of right artificial knee joint Status: Inactive Plan Right total knee replacement for osteoarthritis. DS: Summary Hospital Course Hospital Course: Patient underwent total knee arthroplasty the right. During the surgery posterior medial aspect of the collateral ligament was noted to be loosened and a more constrained knee was placed. She has done well postoperatively will get her hinged brace and she can be dismissed home. Status at Discharge Functional status at discharge: uses cane/walker Time Spent with Patient Time attestation: Total time spent providing and/or coordinating discharge services: Exam Narrative: On exam her wound looks good dressing intact calf is soft. Neurologically she is intact. She can walk with a walker. DS: Data Data Completed and Pending Labs on day of discharge: Labs from last 24 hours 05/28/23 06:09 WBC 8.7 RBC 4.03 L Hgb 11.2 L Hct 35.6 L MCV 88.3 MCH 27.8 MCHC 31.5 L RDW 16.2 H Plt Count 286 MPV 11.9 H Sodium 136 L Potassium 3.8 Chloride 102 Carbon Dioxide 30 Anion Gap 4 L BUN 11 Creatinine 0.60 L Estim Creat Clear Calc 150 Estimated GFR > 60 Glucose 105 Calcium 8.3 L Discharge Plan Discharge Attending physician on discharge: Geovanny Cyr Consulting providers: Deborah Ross Discharging Clinician: Geovanny Cyr Patient Disposition: Home Health Service Activity: no shower and no straining Diet: regular Wound Care Instructions: keep dressing dry Discharge Instructions: Dr. Geovanny Cyr M.D [id number] [address] POST-OPERATIVE DISCHARGE INSTRUCTIONS TOTAL KNEE ARTHROPLASTY 1. When resting, do not rest in the chair.When resting, lie on your back, with back flat on the couch or bed, with leg elevated above heart to minimize swelling. You may put a pillow under your head. . Significant swelling could indicate a blood clot and if this occurs call the office (or go to the ER) to have a venous ultrasound. Therefore, do not rest in a chair. 2. Spend several minutes stretching your knee into flexion while sitting in the chair and also stretching your knee out straight The abilities to bend your knee fulling and straighten your knee fully are two most important knee functions to focus on during your recovery. 3. It is ok to sit in chair to eat, use the toilet and receive a guest and to do your stretching exercises, but, sitting in a chair will cause your leg to swell. Therefore, avoid additional time sitting in the chair. and don't rest in the chair. 4. Wound Care: Nursing will give you an additional Mepilex dressing at the time of discharge. Patient to remove the dressing and apply a new Mepilex dressing at home 7 days after surgery and leave the dressing on until seen in office. 5. May shower with a Mepilex dressing in place.The water will run off the dressing. 6. Unless you are told otherwise, you may put full weight on your operated leg. Use a walker for balance and practice walking as normally as you can, ideally for a few minutes every hour while you are awake. 7. I would advise against putting ice packs on your knee incision. Ice constricts blood flow which can impar healing of the knee incision. IMPORTANT: Remember not to sit in the chair for more than 30 minutes at a time. As a rule, during the first 14 days after surgery, only sit in the chair to work on the chair knee bending stretch exercise, for meals or for use of the restroom. Sitting in the chair promotes significant swelling in the knee and leg which will make your knee stiff and more painful and which simulates having a blood clot in the veins of the leg.
== END 2023-05-28 14:15 | disposition home or self-care (01) ==
LOC: ANHSURGERY 17:09 → ANH3MEDSUR 17:09
PROVIDERS: Internal Medicine; Physician Assistant; Admitting Provider Orthopaedic Surgery; PCP Family Medicine; Visit Provider Orthopaedic Surgery
PROC: (CPT 27447; principal; 2023-05-26 10:30)
DX: M17.11 Unilateral primary osteoarthritis, right knee (principal); G89.18 Other acute postprocedural pain; K21.9 Gastro-esophageal reflux disease without esophagitis; D64.9 Anemia, unspecified; K52.9 Noninfective gastroenteritis and colitis, unspecified; F41.8 Other specified anxiety disorders; L40.50 Arthropathic psoriasis, unspecified; E55.9 Vitamin D deficiency, unspecified; G47.00 Insomnia, unspecified; G25.81 Restless legs syndrome; G47.33 Obstructive sleep apnea (adult) (pediatric); Z99.89 Dependence on other enabling machines and devices; Z96.652 Presence of left artificial knee joint; Z87.891 Personal history of nicotine dependence; F12.90 Cannabis use, unspecified, uncomplicated; Z98.84 Bariatric surgery status; Z79.1 Long term (current) use of non-steroidal anti-inflammatories (NSAID); Z79.84 Long term (current) use of oral hypoglycemic drugs; Z79.891 Long term (current) use of opiate analgesic; Z79.899 Other long term (current) drug therapy; Z82.61 Family history of arthritis; E66.01 Morbid (severe) obesity due to excess calories; Z68.41 Body mass index [BMI] 40.0-44.9, adult
CPT/HCPCS: 64447; 27447; 36415; 73560; 80048; 80076; 83735; 85014; 85018; 85025; 85027; 97110; 97116; 97161; 97165; 97530; 97535; A9270; C1713; C1776; G0378; G0379; J0171; J0690; J1100; J1170; J2250; J2270; J2405; J2704; J2795; J3010; J3370; J7030; J7120

== ENCOUNTER 2023-05-29 19:31 | Emergency (ER) | payer BC, MEDICARE, SELFPAY ==
[2023-05-29 19:34] VITALS: BP 140/79; PULSE 109; RESP 16; TEMP 36.9; O2SAT 100
[2023-05-29 20:06] LABS: Basophils Percent Auto 0.3 % (0.2-1.2); Eosinophils Absolute Auto 0.2 K/mm3 (0-0.3); Eosinophils Percent Auto 2.8 % (0-4.4); Hematocrit 32.6 % (37.0-47.0); Hemoglobin 10.1 g/dL (12.0-15.0); Immature Granulocyte Absolute 0.02 K/mm3 (0.00-0.031); Immature Granulocyte Percent A 0.3 % (0-0.5); Lymphocytes Absolute Auto 2.48 K/mm3 (0.9-3.2); Lymphocytes Percent Auto 31.1 % (18.3-44.2); Mean Corpuscular Hemoglobin 27.7 pg (26-34); Mean Corpuscular Volume 89.3 fl (80-100); Mean Platelet Volume 12.4 fl (7.4-10.4); Neutrophils Absolute Auto 4.3 K/mm3 (1.3-6.7); Neutrophils Percent Auto 53.5 % (45.5-73.1); Platelet Count Result 298 k/mm3 (150-375); Red Blood Count 3.65 M/mm3 (4.2-5.4); Red Cell Distribution Width 16.2 % (11.5-14.5)
[2023-05-29 20:23] LABS: Anion Gap 5 mmol/L (8-16); Blood Urea Nitrogen 11 mg/dL (7-17); Calcium 8.3 mg/dL (8.4-10.2); Carbon Dioxide 28 mmol/L (22-30); Chloride 103 mmol/L (98-107); Estimated CRCL calculation 145 ml/min; Estimated Glomerular Filt Rate > 60; Glucose 92 mg/dL (65-110); Potassium 3.6 mmol/L (3.4-5.0); Sodium 136 mmol/L (137-145)
[2023-05-29 20:24] LABS: Prothrombin Time 13.6 Seconds (11.1-14.7)
[2023-05-29 20:25] LABS: Partial Thromboplastin Time 41.7 SECONDS (22.3-36.8)
--- NOTE | 2023-05-29 21:08 | PC.NURSE ---
Pt approached triage desk with family and states that they are going to go home. reports that they checked labwork on portal and nothing has changed . Pt wheeled out of ED via wheelchair in no obvious distress.
== END 2023-05-29 21:59 | disposition left against medical advice (07) ==
LOC: ANHED 21:40
PROVIDERS: Emergency Provider Student in an Organized Health Care Education/Training Program; PCP Family Medicine
DX: M25.561 Pain in right knee (principal)
CPT/HCPCS: 36415; 80048; 85025; 85610; 85730; 99199

== ENCOUNTER 2023-07-09 00:07 | Day surgery (SDC) | payer BC, MEDICARE, SELFPAY ==
[2023-07-08 14:32] VITALS: BMI 39.1
--- NOTE | 2023-07-08 14:38 | PC.NURSE ---
Report to the Outpatient Waiting Room, entrance under the green pavilion located off [facility], at time __1200 on date _07/09/23 . Planned Procedure Time: ___2 PM . Time changes happen often and if your time is changed the preop area will call you the afternoon before. - You and your visitor will be asked to self-screen and do not enter if you have any COVID symptoms. - A mask is optional within the hospital at this time. Patients may have clear liquids (water, carbonated beverages, clear teas, apple juice) until 3 hours prior to surgery (1100 1M) with a maximum of 20 ounces. - No food from midnight until time of surgery - Infants may have breast milk until 4 hours before surgery, formula 6 hours prior to surgery. - Children will be allowed to drink immediately following surgery. If applicable, please bring a bottle or sippy cup to assist with drinking. Juice, water, soda, and popsicles are readily available. For infants on formula, please bring formula the day of surgery. Pacifiers are allowed. Take the following medications with a SIP of water the morning of surgery: _ARIPIPRAZOLE, DIVALPROEX, DULOXETINE, & PAIN MEDS IF NEEDED____ DO NOT STOP ANY OF YOUR OTHER PRESCRIPTION MEDICATIONS PRIOR TO SURGERY ?EXCEPT THE FOLLOWING Medications to discontinue per physician __MULTIVITAMIN OF TODAY (07/08/23)_ - STATES LAST DOSE OF OZEMPIC 07/07/23____ Please no make-up, nail bangladeshi, hairspray, perfume, deodorant, or body powder the day of surgery. No jewelry (including any body piercings) or valuables the day of surgery, leave them at home. Please take a shower or bath the night before, or the morning of, surgery with an antibacterial soap. Wear comfortable, loose fitting clothing. Children are encouraged to wear pajamas. - Jewelry must be removed prior to entering the operating room. Rings and piercings that are not removed may be cut off. - The hospital will not accept responsibility for valuables. - Please leave all valuables, including medications, at home the day of surgery. If you are going home after surgery, a licensed seasonal delivery driver must drive you home. - NO public transportation without another adult if you receive anesthesia. - We recommend that an adult stay with you for 24 hours following discharge. - We also recommend that you do not drive, make important decision, drink alcoholic beverages, or take any drugs that were not prescribed by your health care provider for at least 24 hours after your discharge time. For Pediatric surgeries, we recommend two adults accompany the child home. Follow any additional instructions given to you from your surgeon. If you or anyone in your household have experienced Covid symptoms in the past week, please notify your surgeon or the nurse liaison at the phone number below for possible testing. Telephone instructions given to ___PT and asked if any additional questions and then verbalized understanding. Patient advised to call surgeon office or pre surgery nurse liaison [phone] if any additional questions.
--- NOTE | 2023-07-08 15:55 | PM.IMHP ---
H&P: HPI History of Present Illness Date/Time: 07/08/23 15:55 Chief Complaint: Arthrofibrosis S/P TKA RIGHT Narrative: Patient has developed stiffness after a total knee done 6 weeks ago. Review of Systems Musculoskeletal: Musculoskeletal: Reports arthralgias and Reports joint swelling FOR[facility]LY [facility] Past Medical History Medical History Acid reflux Anemia Anxiety Arthritis Angeles esophagus Crohn's proctitis She notes it has been labelled on the Crohn's umbrella, but denies actually having Crohn's Depression Depression with anxiety Endometriosis Enteropathic arthritis Fibroids Fibromyalgia (~2008) Hiatal hernia Inflammatory bowel disease Insomnia Interstitial cystitis Irritable bowel syndrome Psoriatic arthritis (~2019) Restless leg syndrome Vitamin D deficiency Surgical History Surgical History History of arthroplasty of right knee (05/26/23) History of bladder surgery History of breast surgery (2018) Incision and drainage of right breast abscess. History of cholecystectomy (2004) History of dilation and curettage 2008 - 2009 multiple History of endometrial ablation History of gastric bypass (2014) History of knee replacement procedure of right knee 05/26/23 History of left knee replacement (02/2020) Per Dr. Espinoza History of loop recorder (02/2022) For recurrent syncope/near-syncope. History of parotid gland excision (2010) Benign tumor. History of partial hysterectomy History of repair of rectocele (2018) History of thyroid cyst (1993) History of wisdom tooth extraction Family History Family History Father Hypertension Family history of elevated blood lipids Family history of arthritis Mother Hypertension Family history of elevated blood lipids Family history of osteoporosis Family history of malignant neoplasm of breast Grandparent Family history of osteoporosis Hypertension Family history of Alzheimer's disease Family history of emphysema Family history of malignant neoplasm of ovary Sibling Hypertension Family history of arthritis Other Alcoholism Asthma Social History Social History Social History: Surrogate medical decision maker: Valerio Mio, spouse. Code status: Full code. Smoking packs per day: 1 Smoking cigarettes per day: 20.0 Years smoked: 5 Smoking pack-years: 5.00 Smoking status: Former smoker Tobacco type: cigarettes Second hand tobacco smoke exposure: No Smoking end date: 05/12/00 Alcohol intake: never Substance use: current Substance use type: marijuana Other substance usage details: MOODY Betancourt HX Last use: 06/06/23 Do You Feel Safe in your Home?: Yes Lack of Transportation: No Lack of Food: Never True Current Housing: I Have Housing Concerned About Future Housing: No Difficulty Paying Gas/Electric Bills: No Difficulty Paying for Meds: No Currently Unemployed: No Education: Associate Degree Difficulty w/ Childcare or Family Care: No Living arrangements: with family Additional living arrangements comments: Lives with spouse and children. Occupation/Education: unemployed Additional occupation/education comments: Disabled. Spiritual care concerns: No Meds Home Medications and Allergies Home Medications Medication Instructions Recorded Confirmed Type calcium carbonate 600 mg calcium 600 mg PO TID 06/06/20 07/08/23 History (1,500 mg) tablet (Calcium) duloxetine 60 mg capsule,delayed 60 mg PO BID #60 caps 06/15/21 07/08/23 Rx release cholecalciferol (vitamin D3) 125 125 mcg PO DAILY 02/08/22 07/08/23 History mcg (5,000 unit) tablet (Vitamin D3) divalproex 500 mg tablet,extended 500 mg PO BID ADHD 02/08/22 07/08/23 History release 24 hr
--- NOTE | 2023-07-09 07:37 | WPDHPUPDATE1 ---
History and Physical Update Update Date/Time: 07/09/23 07:37 History and Physical has been reviewed, including an updated exam of the patient. There are NO changes in the patient's condition. Risks, benefits, and alternatives have been discussed and questions answered. Patient agrees to proceed with procedure.
--- NOTE | 2023-07-09 08:46 | WPDANESEPPF ---
Anes - Initial Pre Proc Eval Procedure: Operation Date: 07/09/23 10:30 Proposed Procedures p Right Knee Manipulation - Geovanny Cyr MD Date/Time: 07/09/23 08:46 Surgeon: Geovanny Cyr MD Pre Op Diagnosis: right knee adhesive bursitis Patient Data Age: 48 Gender: F Height: 1.8 m Weight: 127.27 kg Allergies Allergy/AdvReac Type Severity Reaction Status Date / Time amoxicillin Allergy Severe Hives Verified 07/08/23 14:29 Penicillins Allergy Severe Hives Verified 07/08/23 14:29 adhesive Allergy Intermediate BLISTERS/RA Verified 07/08/23 14:29 SH latex Allergy Intermediate Rash Verified 07/08/23 14:29 clindamycin Allergy Mild Swelling Verified 07/08/23 14:29 zolpidem [From Ambien] AdvReac Intermediate sleep Verified 07/08/23 14:29 walking azithromycin AdvReac Mild Nausea and Verified 07/08/23 14:29 Vomiting ibuprofen AdvReac Mild Heartburn Verified 07/08/23 14:29 Home Medications Medication Instructions Recorded Confirmed Type calcium carbonate 600 mg calcium 600 mg PO TID 06/06/20 07/08/23 History (1,500 mg) tablet (Calcium) duloxetine 60 mg capsule,delayed 60 mg PO BID #60 caps 06/15/21 07/08/23 Rx release cholecalciferol (vitamin D3) 125 125 mcg PO DAILY 02/08/22 07/08/23 History mcg (5,000 unit) tablet (Vitamin D3) divalproex 500 mg tablet,extended 500 mg PO BID ADHD 02/08/22 07/08/23 History release 24 hr multivitamin 1 tablet PO DAILY 02/08/22 07/08/23 History golimumab 12.5 mg/mL intravenous See Rx Instructions IV .[id number] 06/12/22 07/08/23 History solution (Simponi ARIA) gabapentin 600 mg tablet 600 mg PO HS 11/24/22 07/08/23 History ropinirole 1 mg tablet 1 mg PO BID RLS 11/24/22 07/08/23 History eszopiclone 3 mg tablet (Lunesta) 3 mg PO QHS #30 tabs 12/26/22 07/08/23 Rx azathioprine 100 mg tablet 150 mg PO DAILY 01/23/23 07/08/23 History acetaminophen 500 mg capsule 1,000 mg PO PRN PRN Pain 05/15/23 07/08/23 History aripiprazole 10 mg tablet 10 mg PO DAILY 05/15/23 07/08/23 History docusate sodium 50 mg capsule 50 mg PO DAILY 05/15/23 07/08/23 History (Stool Softener) famotidine 40 mg tablet 40 mg PO QPM 05/15/23 07/08/23 History semaglutide 1 mg/dose (4 mg/3 mL) 1 mg subcut WEEKLY WEIGHT LOSS 05/15/23 07/08/23 History subcutaneous pen injector (Ozempic) sulfasalazine 500 mg 500 mg PO BID 05/15/23 07/08/23 History tablet,delayed release cyclobenzaprine 10 mg tablet 10 mg PO HS PRN muscle spasm #30 05/28/23 07/08/23 Rx tabs hydrocodone 5 mg-acetaminophen 300 1 tablet PO QHS PRN pain #30 tabs 07/07/23 07/08/23 Rx mg tablet Patient hx anesthesia problems: none Family hx anesthesia problems: none Results Review: All pre-operative results and documents have been reviewed as part of the pre-operative evaluation. [facility] Past Medical History Medical History Acid reflux Anemia Anxiety Arthritis Angeles esophagus Crohn's proctitis She notes it has been labelled on the Crohn's umbrella, but denies actually having Crohn's Depression Depression with anxiety Endometriosis Enteropathic arthritis Fibroids Fibromyalgia (~2008) Hiatal hernia Inflammatory bowel disease Insomnia Interstitial cystitis Irritable bowel syndrome Psoriatic arthritis (~2019) Restless leg syndrome Vitamin D deficiency Surgical History Surgical History History of arthroplasty of right knee (05/26/23) History of bladder surgery History of breast surgery (2018) Incision and drainage of right breast abscess. History of cholecystectomy (2004) History of dilation and curettage 2008 - 2009 multiple History of endometrial ablation History of gastric bypass (2014) History of knee replacement procedure of right knee 05/26/23 History of left knee replacement (02/2020) Per Dr. Espinoza History of loop recorder (02/2022) For recurrent syncope/near-syncope. Hi
[2023-07-09] MEDS: ACETAMINOPHEN 500 MG TABLET 1000 MG PO (08:50)
[2023-07-09] MEDS: LACTATED RINGERS 1,000 ML 30 ML IV CONT (09:00)
[2023-07-09] MEDS: KETOROLAC 15 MG/ML VIAL (*BKC) IV PUSH (09:03)
[2023-07-09 09:41] VITALS: BP 123/78; PULSE 91; RESP 16; TEMP 36.7; O2SAT 99
--- NOTE | 2023-07-09 10:49 | P.OP_ITS ---
Procedure Note - Detailed Date of Procedure 07/09/23 Pre-op Diagnosis Right knee adhesive bursitis Post-op Diagnosis Same Procedure Performed Manipulation right knee Surgeon Geovanny Cyr MD Anesthesia General Description of Procedure Patient brought to operating room #5. A general anesthetic was gently admi nistered. With great care I gently manipulated the knee into flexion of 120? without really any difficulty. The knee was noted be stable in both flexion and extension at the end of the procedure. Patient left the operating room satisfactory condition. Complications No immediate complications Condition Stable Disposition PACU [facility] Billing Surgery - Charge Forward: Surgery Billing (Knee manipulation [id number])
[2023-07-09 10:55] VITALS: BP 121/81; PULSE 78; RESP 12; O2SAT 97
[2023-07-09 11:25] VITALS: BP 124/85; PULSE 79; RESP 16
[2023-07-09] MEDS: oxyCODONE HCL (*CRX) 5 MG TAB IR PO (11:33)
[2023-07-09 11:42] VITALS: BP 147/95; PULSE 83; RESP 16
== END 2023-07-09 11:50 | disposition home or self-care (01) ==
PROVIDERS: PCP Family Medicine; Visit Provider Orthopaedic Surgery
PROC: (CPT 27570; principal; 2023-07-09 10:30)
DX: T84.82XA Fibrosis due to internal orthopedic prosthetic devices, implants and grafts, initial encounter (principal); Z96.651 Presence of right artificial knee joint; Y83.8 Other surgical procedures as the cause of abnormal reaction of the patient, or of later complication, without mention of misadventure at the time of the procedure; F41.8 Other specified anxiety disorders; M79.7 Fibromyalgia; K58.9 Irritable bowel syndrome, unspecified; E55.9 Vitamin D deficiency, unspecified; G25.81 Restless legs syndrome; K21.9 Gastro-esophageal reflux disease without esophagitis; Z98.84 Bariatric surgery status; Z87.891 Personal history of nicotine dependence; F12.90 Cannabis use, unspecified, uncomplicated; Z79.620 Long term (current) use of immunosuppressive biologic; Z79.85 Long-term (current) use of injectable non-insulin antidiabetic drugs; Z79.891 Long term (current) use of opiate analgesic; E66.01 Morbid (severe) obesity due to excess calories; Z68.37 Body mass index [BMI] 37.0-37.9, adult
CPT/HCPCS: 27570; A9270; J1885; J2250; J2405; J2704; J3010; J7120

== ENCOUNTER 2023-07-15 08:00 | Outpatient (RCR) | payer BC, MEDICARE, SELFPAY ==
--- NOTE | 2023-06-03 07:55 | PCPTNOTE ---
Patient called & cancelled scheduled appointment this date due to inclement weather. She has been rescheduled.
--- NOTE | 2023-06-04 15:20 | OPREHPOC ---
Outpatient Therapy Plan of Care This is a Multidisciplinary Plan of Care that may contain components documented by all disciplines (PT, OT, and ST.) PT Problem 1 PT Problem #1 Knowledge Deficit PT Goal 1 Goal Pt to be IND with issued HEP Target Visit 24 PT Problem 2 PT Problem #2 Pain PT Goal 1 Goal Pt to report knee pain no greater than 4/10 in the last week Target Visit 24 PT Goal 2 Goal Pt to report 75% improvement in overall symptoms Target Visit 24 PT Problem 3 PT Problem #3 Impaired Range of Motion PT Goal 1 Goal Pt to demonstrate full range knee extension to 0 deg Target Visit 24 PT Goal 2 Goal Pt to demonstrate knee flexion to 115 deg actively Target Visit 24 PT Problem 4 PT Problem #4 Impaired Gait PT Goal 1 Goal Pt to ambulate without AD on level surface when protocol allows Target Visit 24 PT Goal 2 Goal Pt to improve 2 min walk distance from 270ft to 400ft Target Visit 24 PT Problem 5 PT Problem #5 Impaired Functional Mobil PT Goal 1 Goal Pt to improve LEFS score from 5/80 to 50/80 Target Visit 24 PT Goal 2 Goal Pt to demonstrate a functional lift and carry of 20lb from ground level Target Visit 24
--- NOTE | 2023-06-04 15:20 | PTOPEVAL1 ---
Assessment and note entered by Abran Echevarria, PT, DPT Evaluation Information Assessment Status Evaluation Diagnosis R TKA Onset 05/26/23 Subjective Information Pt had a R TKA on 05/26/23. Pt states she has 6 weeks in a hinged knee brace, she was initially sent home in a knee immobilizer and told to wear it until she got a hinge brace. She was in the knee immobilizer for 8 days. She states she cannot bear weight on her leg without the brace on to avoid lateral stress. Reported Pain Level Pain Score 7: Self Report Assessment PT Clinical Summary Corrie presents to therapy today for her initial evaluation following a R TKA on 05/26/23. Today she demonstrates significant limitations in her ROM into flexion and extension, flexion limited to 66 deg and lacking 10 deg from extension, passively. She is required to ambulate with a WW and hinged knee brace at this time. She demonstrates significant limitations from her PLOF. Skilled therapy services are indicated to improve ROM, strength, gait, and functional mobility. LEFS: 4/80 - 94% disability Plan of Care Interventions Electrical Stimulation,Gait Training,Hot Pack/Cold Pack,Manual Therapy,Neuro Re-education,Patient/ Caregiver Educati,Therapeutic Activities, Therapeutic Exercise PT Services Indicated Yes Treatment Frequency and 2-3x/wk for 8 wks Duration These treatments will address the objective and functional deficits as defined above. The patient will be advanced safely and appropriately in order for the patient to progress towards his/her prior level of function. Additional exercises will be introduced and as well as a comprehensive home exercise program upon discharge, if needed, ?to ensure carryover of functional gains achieved in the clinic. This treatment plan has been reviewed and agreement upon by the patient.
--- NOTE | 2023-06-13 09:19 | PCPTNOTE ---
Patient left voicemail canceling appointment this date.
--- NOTE | 2023-06-23 08:13 | PCPTNOTE ---
Patient cancelled secondary to ill.
--- NOTE | 2023-06-25 08:03 | PCPTNOTE ---
Patient cancelled secondary to ill.
--- NOTE | 2023-06-27 10:51 | PTOPPROGNS ---
Assessment and note entered by Abran Echevarria, PT, DPT Evaluation Information Assessment Status Progress Diagnosis R TKA Onset 05/26/23 Subjective Information Pt states the last couple of days she has not been able to sleep well at all d/t lozano and hip pain, her knee pain is about average. Pt states despite the pain this week she is able to get around when at home. Assessment PT Clinical Summary Corrie presents to therapy today for her progress report following 7 visits of skilled therapy to treat her R TKA on 05/26/23. Today she demonstrates progressing but still limited ROM into flexion and extension, flexion limited to 90 deg and lacking 6 deg from extension, passively. Per pt she is still required to ambulate with a WW and hinged knee brace at this time. She has had an increase in her pain within the last week. Her strength is progressing and she is making good progress towards her goals. Continuation of skilled therapy services are indicated to improve ROM, strength, gait, and functional mobility. Plan of Care Interventions Electrical Stimulation,Gait Training,Hot Pack/Cold Pack,Intermittent Compression,Manual Therapy, Neuro Re-education,Patient/Caregiver Educati, Therapeutic Activities,Therapeutic Exercise PT Services Indicated Yes Treatment Frequency and 2-3x/wk for 8 wks, continue per POC Duration These treatments will address the objective and functional deficits as defined above. The patient will be advanced safely and appropriately in order for the patient to progress towards his/her prior level of function. Additional exercises will be introduced and as well as a comprehensive home exercise program upon discharge, if needed, ?to ensure carryover of functional gains achieved in the clinic. This treatment plan has been reviewed and agreement upon by the patient.
--- NOTE | 2023-07-01 08:45 | PCPTNOTE ---
Patient called to cancel due to not having a ride.
--- NOTE | 2023-07-17 09:22 | PCPTNOTE ---
Patient called to cancel due to illness.
--- NOTE | 2023-07-22 16:44 | PCPTNOTE ---
Patient left voicemail to cancel treatment this date due to pain.
--- NOTE | 2023-07-23 13:25 | PTOPDC ---
Assessment and note entered by Abran Echevarria, PT, DPT Evaluation Information Assessment Status Discharge - Pt Not Present Diagnosis R TKA Onset 05/26/23 Subjective Information Pt called and cancelled her last appointment this date. She states she followed up with her surgeon this date and reports she does not need to continue with therapy at this time. Assessment PT Clinical Summary Corrie completed 11 visits of skilled therapy from 06/04/23 to 07/15/23. She will be discharged at this time per request.
== END 2023-07-23 13:41 | disposition home or self-care (01) ==
LOC: ANHGOSHPT 08:00
PROVIDERS: PCP Family Medicine; Visit Provider Orthopaedic Surgery
DX: M17.11 Unilateral primary osteoarthritis, right knee (principal)
CPT/HCPCS: 97014; 97016; 97110; 97140; 97161; G0283

== ENCOUNTER 2023-08-16 12:12 | Emergency (ER) | payer BC, MEDICARE, SELFPAY ==
[2023-08-16 12:13] VITALS: BP 119/74; PULSE 103; RESP 16; TEMP 36.3; O2SAT 100
--- NOTE | 2023-08-16 12:44 | ED.DENTAL ---
HPI - Dental/Oral General Chief complaint: Dental/Oral Stated complaint: rotten tooth/lymph nodes swollen/recent knee surge Time Seen by Provider: 08/16/23 12:20 History of Present Illness HPI Narrative: 48-year-old female presented emergency department for evaluation of worsening dental pain. Patient reports that she had a knee replacement in May and this has been healing well. Patient states that she had a crown break off recently and since then she has had worsening facial swelling and increased dental pain. Patient did call her dentist and she was instructed to present to the emergency department to rule out infection. Related Data Home Medications Medication Instructions Recorded Confirmed calcium carbonate 600 mg calcium 600 mg PO TID 06/06/20 08/07/23 (1,500 mg) tablet (Calcium) cholecalciferol (vitamin D3) 125 125 mcg PO DAILY 02/08/22 08/07/23 mcg (5,000 unit) tablet (Vitamin D3) divalproex 500 mg tablet,extended 500 mg PO BID ADHD 02/08/22 08/07/23 release 24 hr multivitamin 1 tablet PO DAILY 02/08/22 08/07/23 golimumab 12.5 mg/mL intravenous See Rx Instructions IV .[id number] 06/12/22 08/07/23 solution (Simponi ARIA) gabapentin 600 mg tablet 600 mg PO HS 11/24/22 08/07/23 ropinirole 1 mg tablet 1 mg PO BID RLS 11/24/22 08/07/23 azathioprine 100 mg tablet 150 mg PO DAILY 01/23/23 08/07/23 acetaminophen 500 mg capsule 1,000 mg PO PRN PRN Pain 05/15/23 08/07/23 aripiprazole 10 mg tablet 10 mg PO DAILY 05/15/23 08/07/23 docusate sodium 50 mg capsule 50 mg PO DAILY 05/15/23 08/07/23 (Stool Softener) famotidine 40 mg tablet 40 mg PO QPM 05/15/23 08/07/23 sulfasalazine 500 mg 500 mg PO BID 05/15/23 08/07/23 tablet,delayed release doxepin 10 mg capsule 10 mg PO QHS 08/07/23 08/07/23 Allergies Allergy/AdvReac Type Severity Reaction Status Date / Time amoxicillin Allergy Severe Hives Verified 08/16/23 12:18 Penicillins Allergy Severe Hives Verified 08/16/23 12:18 adhesive Allergy Intermediate BLISTERS/RA Verified 08/16/23 12:18 SH latex Allergy Intermediate Rash Verified 08/16/23 12:18 clindamycin Allergy Mild Swelling Verified 08/16/23 12:18 zolpidem [From Ambien] AdvReac Intermediate sleep Verified 08/16/23 12:18 walking azithromycin AdvReac Mild Nausea and Verified 08/16/23 12:18 Vomiting ibuprofen AdvReac Mild Heartburn Verified 08/16/23 12:18 Review of Systems Review of Systems: All systems reviewed & are unremarkable except as noted in HPI and below PMFSH Past Medical History Medical History Acid reflux Anemia Anxiety Arthritis Angeles esophagus Crohn's proctitis She notes it has been labelled on the Crohn's umbrella, but denies actually having Crohn's Depression Depression with anxiety Endometriosis Enteropathic arthritis Fibroids Fibromyalgia (~2008) Hiatal hernia Inflammatory bowel disease Insomnia Interstitial cystitis Irritable bowel syndrome Psoriatic arthritis (~2019) Restless leg syndrome Vitamin D deficiency Surgical History Surgical History History of arthroplasty of right knee (05/26/23) History of bladder surgery History of breast surgery (2018) Incision and drainage of right breast abscess. History of cholecystectomy (2004) History of dilation and curettage 2008 - 2009 multiple History of endometrial ablation History of gastric bypass (2014) History of knee replacement procedure of right knee 05/26/23 History of left knee replacement (02/2020) Per Dr. Espinoza History of loop recorder (02/2022) For recurrent syncope/near-syncope. History of parotid gland excision (2010) Benign tumor. History of partial hysterectomy History of repair of rectocele (2018) History of thyroid cyst (1993) History of wisdom tooth extraction Family History Family History Father Hypertensio
[2023-08-16] MEDS: levoFLOXacin 500 MG TABLET PO (12:50)
[2023-08-16] MEDS: metroNIDAZOLE 500 MG TABLET PO (12:50)
[2023-08-16 13:05] VITALS: BP 126/81; PULSE 93; RESP 15; TEMP 36.8; O2SAT 95
== END 2023-08-16 13:07 | disposition home or self-care (01) ==
PROVIDERS: Emergency Provider Emergency Medicine; PCP Family Medicine
DX: K04.7 Periapical abscess without sinus (principal); E55.9 Vitamin D deficiency, unspecified; G25.81 Restless legs syndrome; K58.9 Irritable bowel syndrome, unspecified; K22.70 Barrett's esophagus without dysplasia; K21.9 Gastro-esophageal reflux disease without esophagitis; L40.50 Arthropathic psoriasis, unspecified; M19.90 Unspecified osteoarthritis, unspecified site; M79.7 Fibromyalgia; Z96.653 Presence of artificial knee joint, bilateral; Z98.84 Bariatric surgery status; Z86.2 Personal history of diseases of the blood and blood-forming organs and certain disorders involving the immune mechanism; Z87.891 Personal history of nicotine dependence; Z90.49 Acquired absence of other specified parts of digestive tract; Z90.710 Acquired absence of both cervix and uterus
CPT/HCPCS: 99283; A9270

== ENCOUNTER 2023-10-10 10:04 | Outpatient (CLI) | payer BC, MEDICARE, SELFPAY ==
--- NOTE | ~2023-10-10 | XR_ITS ---
AP view of the pelvis and AP and lateral views of the bilateral hips Clinical history: Psoriatic arthritis Findings: No acute fracture or dislocation is seen. Osseous alignment is anatomic. Bilateral hip and SI joint spaces are preserved. Soft tissues are unremarkable. Impression: No significant abnormality is seen. Reviewed, dictated and finalized at location . Impression: No significant abnormality is seen.
--- NOTE | ~2023-10-10 | US_ITS ---
EXAMINATION: US knee asp inj w image RT DATE: 10/10/2023 11:01 INDICATION: Right knee pain. Right knee joint effusion. TECHNIQUE: The procedure including the risks, benefits, and alternatives was discussed with the patie nt. Risks discussed included bleeding and infection. The patient understood the risks and agreed to p roceed. The skin overlying the right knee was prepped and draped in usual sterile fashion. Anestheti c was administered with 1% lidocaine subcutaneously. An 18 needle was then used to aspirate fluid fr om the knee joint with sonographic guidance. The entry site was cleaned and dressed. There were no i mmediate complications. FINDINGS: Ultrasound images demonstrate no significant fluid. IMPRESSION: 1. Ultrasound-guided needle aspiration of the right knee joint yielding 4 mL lashawn-colored fluid. Reviewed, dictated and finalized at location A. IMPRESSION: 1. Ultrasound-guided needle aspiration of the right knee joint yielding 4 mL am yue-colored fluid.
[2023-10-10 11:44] LABS: Appearance Synovial Fluid Cloudy (Clear); Color Synovial Fluid Yellow (Colorless); Lymphocytes Synovial Fluid 13 %; Monocytes Synovial Fluid 85 %; Neutrophils Synovial Fluid 2 % (0-25); Nucleated Cell Synovial Fluid 275 /uL (0-200); RBC Synovial Fluid 6000 /uL (0-0); Source Synovial Fluid Synovial fluid
[2023-10-10 11:50] LABS: Crystals Synovial Fluid None Seen (None Seen)
== END 2023-10-10 10:05 | disposition home or self-care (01) ==
LOC: ANHIMG 10:10
PROVIDERS: PCP Family Medicine; Referring Provider Internal Medicine; Visit Provider Orthopaedic Surgery
DX: L40.59 Other psoriatic arthropathy (principal); M25.561 Pain in right knee; M11.20 Other chondrocalcinosis, unspecified site; Z79.1 Long term (current) use of non-steroidal anti-inflammatories (NSAID); Z96.651 Presence of right artificial knee joint
CPT/HCPCS: 20611; 73521; 87070; 87075; 87205; 89051; 89060

== ENCOUNTER 2023-10-28 11:30 | Outpatient (CLI) | payer BC, MEDICARE, SELFPAY ==
[2023-10-28 11:49] LABS: Basophils Percent Auto 0.2 % (0.2-1.2); Eosinophils Absolute Auto 0.1 K/mm3 (0-0.3); Eosinophils Percent Auto 1.2 % (0-4.4); Hematocrit 38.6 % (37.0-47.0); Hemoglobin 11.5 g/dL (12.0-15.0); Immature Granulocyte Absolute 0.01 K/mm3 (0.00-0.031); Immature Granulocyte Percent A 0.2 % (0-0.5); Lymphocytes Absolute Auto 2.08 K/mm3 (0.9-3.2); Lymphocytes Percent Auto 31.8 % (18.3-44.2); Mean Corpuscular HGB Conc 29.8 g/dl (32-36); Mean Corpuscular Hemoglobin 25.8 pg (26-34); Mean Corpuscular Volume 86.7 fl (80-100); Mean Platelet Volume 11.3 fl (7.4-10.4); Monocytes Absolute Auto 0.5 K/mm3 (0.1-0.6); Monocytes Percent Auto 8.3 % (2.6-8.5); Neutrophils Absolute Auto 3.8 K/mm3 (1.3-6.7); Neutrophils Percent Auto 58.3 % (45.5-73.1); Platelet Count Result 430 k/mm3 (150-375); Red Blood Count 4.45 M/mm3 (4.2-5.4); Red Cell Distribution Width 18.4 % (11.5-14.5); White Blood Count 6.5 K/mm3 (4.5-10.0)
[2023-10-28 12:25] LABS: Alanine Aminotransferase 13 U/L (6-35); Alkaline Phosphatase 93 U/L (38-126); Anion Gap 11 mmol/L (4-12); Aspartate Amino Transferase 41 U/L (14-36); Bilirubin,Total 0.7 mg/dL (0.2-1.3); Blood Urea Nitrogen 10 mg/dL (7-17); CRP 5.9 mg/dL (<1.0); Calcium 9.9 mg/dL (8.4-10.2); Carbon Dioxide 26 mmol/L (22-30); Chloride 101 mmol/L (98-107); Estimated Glomerular Filt Rate > 60; Glucose 94 mg/dL (65-110); Lactate Dehydrogenase 222 U/L (120-246); Potassium 4.4 mmol/L (3.4-5.0); Sodium 138 mmol/L (137-145)
[2023-10-28 12:34] LABS: Iron 37 ug/dL (37-170)
[2023-10-28 12:45] LABS: Percent Iron Saturation 16 % (20-50)
[2023-10-28 13:15] LABS: Erythrocyte Sedimentation Rate 19 mm/hr (0-20)
[2023-10-28 15:05] LABS: Folic Acid 17.2 ng/mL (2.76->20)
[2023-10-30 17:39] LABS: Methylmalonic Acid 130 nmol/L (55-335)
[2023-11-04 14:54] LABS: Soluble Transferrin Receptor 2.35 mg/L (0.76-1.76)
== END 2023-10-28 11:31 | disposition home or self-care (01) ==
LOC: ANHLAB 11:33
PROVIDERS: Nurse Practitioner Family; PCP Family Medicine; Visit Provider Internal Medicine Hematology & Oncology
DX: D50.9 Iron deficiency anemia, unspecified (principal); D75.839 Thrombocytosis, unspecified
CPT/HCPCS: 36415; 80053; 82607; 82728; 82746; 83540; 83550; 83615; 83921; 84238; 85025; 85652; 86140

== ENCOUNTER 2023-11-11 00:51 | Emergency (ER) | payer BC, MEDICARE, SELFPAY ==
[2023-11-11] VITALS (11 sets, daily range): BP systolic 95–123; BP diastolic 55–82; PULSE 73–95; RESP 16–18; TEMP 36.1; O2SAT 93–98
--- NOTE | ~2023-11-11 | CT_ITS ---
Clinical Indication: Pulmonary embolus CT Scan of the Chest with Contrast: Technique: Contiguous sections were acquired throughout the chest after intravenous administration of 100 cc of Omnipaque 350. Dose reduction technique was used on this scan by utilizing automated expos ure control and iterative reconstruction technique. The dose-length product (DLP) was 742.59 mGy-cm. COMPARISON: 06/03/2022 Findings: There is no evidence of any significant mediastinal, hilar or axillary lymphadenopathy. There is no f illing defect in the pulmonary arterial tree to suggest pulmonary embolus. There is no evidence of ao rtic dissection or aneurysm. No pericardial effusion. Left lung clear. No left pleural effusion. There is a small circumferential hyperdense right pleural effusion versus diffuse pleural thickening. There is a discoid atelectasis or scarring in the right lung. Images through the upper abdomen reveal evidence of prior bariatric surgery. Impression: No evidence of pulmonary embolus, aortic dissection, or aortic aneurysm. Small circumferential right hemothorax versus other pleural thickening. Discoid areas of atelectasis or scarring in the right lung. Reviewed, dictated and finalized at [facility]. Impression: No evidence of pulmonary embolus, aortic dissection, or aortic aneurysm. Small circumferential right hemothorax versus other pleural thickening. Discoid areas of atelectasis or scarring in the right lung.
--- NOTE | ~2023-11-11 | XR_ITS ---
Clinical Indication: Palpitations PA and lateral views of the chest: Comparison: 02/18/2023 Findings: Probable small loculated circumferential right pleural effusion. There are areas of discoid atelectasis or scarring in the right lung. Left lung clear. Cardiomediastinal silhouette is within normal limits, with a loop recorder. Bones and soft tissues are unremarkable. Impression: Probable small loculated circumferential right pleural effusion with areas of discoid scarring or ate lectasis in the right lung. Reviewed, dictated and finalized at location . Impression: Probable small loculated circumferential right pleural effusion with areas of d iscoid scarring or atelectasis in the right lung.
--- NOTE | 2023-11-11 00:55 | ECG_ITS ---
Test Date: 2023-11-11 03:49:02 Measurements Intervals [place] Rate: 77 P: 28 MA: 171 QRS: -11 QRSD: 106 T: -3 QT: 415 QTc: 472 Interpretive Statements SINUS RHYTHM LOW QRS VOLTAGE IN PRECORDIAL LEADS INCOMPLETE RIGHT BUNDLE BRANCH BLOCK BORDERLINE T WAVE ABNORMALITY- INFERIOR LEADS BORDERLINE ECG No previous ECG available for comparison Electronically Signed On 11-11-2023 06:29:43 CDT by Earl Leon D.O.
[2023-11-11] MEDS: ASPIRIN 81 MG CHEWABLE TABLET 324 MG PO (01:06)
[2023-11-11 01:31] LABS: Basophils Percent Auto 0.3 % (0.2-1.2); Eosinophils Absolute Auto 0.1 K/mm3 (0-0.3); Eosinophils Percent Auto 1.5 % (0-4.4); Hematocrit 34.2 % (37.0-47.0); Hemoglobin 10.4 g/dL (12.0-15.0); Immature Granulocyte Absolute 0.01 K/mm3 (0.00-0.031); Immature Granulocyte Percent A 0.1 % (0-0.5); Lymphocytes Absolute Auto 2.52 K/mm3 (0.9-3.2); Lymphocytes Percent Auto 35.1 % (18.3-44.2); Mean Corpuscular HGB Conc 30.4 g/dl (32-36); Mean Corpuscular Hemoglobin 26.4 pg (26-34); Mean Corpuscular Volume 86.8 fl (80-100); Mean Platelet Volume 10.1 fl (7.4-10.4); Monocytes Absolute Auto 0.8 K/mm3 (0.1-0.6); Monocytes Percent Auto 10.7 % (2.6-8.5); Neutrophils Absolute Auto 3.8 K/mm3 (1.3-6.7); Neutrophils Percent Auto 52.3 % (45.5-73.1); Platelet Count Result 526 k/mm3 (150-375); Red Blood Count 3.94 M/mm3 (4.2-5.4); Red Cell Distribution Width 18.8 % (11.5-14.5); White Blood Count 7.2 K/mm3 (4.5-10.0)
[2023-11-11 01:32] LABS: INR 0.9; Prothrombin Time 12.8 Seconds (11.1-14.7)
[2023-11-11 01:33] LABS: Partial Thromboplastin Time 35.2 Seconds (22.3-36.8)
[2023-11-11 01:35] LABS: Alanine Aminotransferase 8 U/L (6-35); Alkaline Phosphatase 73 U/L (38-126); Anion Gap 5 mmol/L (4-12); Aspartate Amino Transferase 21 U/L (14-36); Bilirubin,Total 0.3 mg/dL (0.2-1.3); Blood Urea Nitrogen 13 mg/dL (7-17); Carbon Dioxide 31 mmol/L (22-30); Chloride 103 mmol/L (98-107); Estimated CRCL calculation 132 ml/min; Estimated Glomerular Filt Rate > 60; Glucose 88 mg/dL (65-110); Lipase 98 U/L (23-300); Sodium 139 mmol/L (137-145)
[2023-11-11 01:47] LABS: Troponin I < 0.012 ng/mL (0.000-0.034)
[2023-11-11] MEDS: SODIUM CHLORIDE 0.9% IV 1,000 ML 999 ML IV CONT (01:47)
--- NOTE | 2023-11-11 01:52 | ED.ARRPALP ---
HPI - Arrhythmia/Palpitations General Chief Complaint: Arrhythmia/Palpitations Stated Complaint: dizziness/palpitations Time Seen by Provider: 11/11/23 01:26 History of Present Illness HPI narrative: Patient is a 48-year-old female with history of anemia, thrombocytosis here with multiple syncopal episodes and lightheadedness. Patient notes that over the last 2 weeks she has had numerous syncopal episodes. They tend to occur when she goes from sitting to standing or bending over. She notes that she does have a loop recorder in place because similar episodes were happening of about 3 years ago. She did contact her climatology professor office, Dr. Melton, they noted episodes of sinus tachycardia but no other abnormalities have shown up in the last couple of weeks on her loop recorder. They recommended that she sorts out her hematology issues as this is probably playing a role. She states that she is currently having some palpitations as well as midsternal chest pain and a headache. No additional cardiac history in the past. No recent illness. No cough, congestion, fever, chills. She does state that she currently follows with a excellence manager due to high platelet count and anemia. No recent changes in medications. Her last dose of tylenol was about 3 hours ago, her last dose of ibuprofen was about 6 hours ago. Related Data Home Medications Medication Instructions Recorded Confirmed calcium carbonate (Calcium 600) 600 mg PO TID 06/06/20 10/23/23 cholecalciferol (vitamin D3) 125 125 mcg PO DAILY 02/08/22 10/23/23 mcg (5,000 unit) tablet (Vitamin D3) divalproex 500 mg tablet,extended 500 mg PO BID ADHD 02/08/22 10/23/23 release 24 hr multivitamin 1 tablet PO DAILY 02/08/22 10/23/23 golimumab 12.5 mg/mL intravenous See Rx Instructions IV .[id number] 06/12/22 10/23/23 solution (Simponi ARIA) gabapentin 600 mg tablet 600 mg PO HS 11/24/22 10/23/23 ropinirole 1 mg tablet 1 mg PO BID RLS 11/24/22 10/23/23 azathioprine 100 mg tablet 150 mg PO DAILY 01/23/23 10/23/23 acetaminophen 500 mg capsule 1,000 mg PO PRN PRN Pain 05/15/23 10/23/23 aripiprazole 10 mg tablet 10 mg PO DAILY 05/15/23 10/23/23 docusate sodium 50 mg capsule 50 mg PO DAILY 05/15/23 10/23/23 (Stool Softener) famotidine 40 mg tablet 40 mg PO QPM 05/15/23 10/23/23 sulfasalazine 500 mg 500 mg PO BID 05/15/23 10/23/23 tablet,delayed release doxepin 10 mg capsule 10 mg PO QHS 08/07/23 10/23/23 Allergies Allergy/AdvReac Type Severity Reaction Status Date / Time amoxicillin Allergy Severe Hives Verified 11/11/23 01:07 Penicillins Allergy Severe Hives Verified 11/11/23 01:07 adhesive Allergy Intermediate BLISTERS/RA Verified 11/11/23 01:07 SH latex Allergy Intermediate Rash Verified 11/11/23 01:07 clindamycin Allergy Mild Swelling Verified 11/11/23 01:07 zolpidem [From Ambien] AdvReac Intermediate sleep Verified 11/11/23 01:07 walking azithromycin AdvReac Mild Nausea and Verified 11/11/23 01:07 Vomiting ibuprofen AdvReac Mild Heartburn Verified 11/11/23 01:07 Review of Systems Review of Systems: All systems reviewed & are unremarkable except as noted in HPI and below PMFSH Past Medical History Medical History (Updated 11/11/23 @ 05:44 by Julia Danielle MD) Acid reflux Anemia Anxiety Arthritis Angeles esophagus Crohn's proctitis She notes it has been labelled on the Crohn's umbrella, but denies actually having Crohn's Depression Depression with anxiety Endometriosis Enteropathic arthritis Fibroids Fibromyalgia (~2008) Hiatal hernia History of fainting Inflammatory bowel disease Insomnia Interstitial cystitis Irritable bowel syndrome Psoriatic arthritis (~2019) Restless leg syndrome Vitamin D deficiency Surgical History Surgical History History of arthroplasty of right knee (05/26/23) History of bladder surgery History of breast surgery (2018) Incision and drainage of right breast abs
[2023-11-11] MEDS: KETOROLAC 15 MG/ML VIAL (*BKC) IV PUSH (02:06)
[2023-11-11 02:14] LABS: D Dimer 2.13 ug/mL (<0.48)
[2023-11-11 02:32] LABS: Magnesium 2.1 mg/dL (1.6-2.3)
[2023-11-11 02:46] LABS: Influenza A QL RT-PCR Negative (Negative); Influenza B QL RT-PCR Negative (Negative); RSV RNA, RT-PCR Negative (Negative); SARS-CoV-2 RNA PCR Negative (Negative)
--- NOTE | 2023-11-11 03:39 | ECG_ITS ---
Test Date: 2023-11-11 00:58:49 Measurements Intervals [place] Rate: 87 P: 18 WI: 154 QRS: -15 QRSD: 96 T: -1 QT: 364 QTc: 440 Interpretive Statements SINUS RHYTHM BORDERLINE T WAVE ABNORMALITY- INFERIOR LEADS BORDERLINE ECG No previous ECG available for comparison Electronically Signed On 11-11-2023 11:48:37 CDT by Earl Leon D.O.
[2023-11-11] MEDS: LACTATED RINGERS 1,000 ML 999 ML IV CONT (03:43)
[2023-11-11] MEDS: diphenhydrAMINE HCl INJ 50 MG/ML VIAL 25 MG IV PUSH (03:53)
[2023-11-11] MEDS: METOCLOPRAMIDE HCL INJ 10 MG/2 ML VIAL IV PUSH (03:54)
[2023-11-11] MEDS: ACETAMINOPHEN 500 MG TABLET 1000 MG PO (03:56)
[2023-11-11 04:09] LABS: Troponin I < 0.012 ng/mL (0.000-0.034)
[2023-11-11] MEDS: MAGNESIUM SULF 2 GM/WATER 50ML 2 GM/50 ML BAG IVPB (04:17)
[2023-11-11 04:22] LABS: Free T4 Free Thyroxine Reflex 1.08 ng/dL (0.78-2.19)
[2023-11-11 05:12] LABS: Total Triiodothyronine (T3) 1.43 NG/ML (0.97-1.69)
== END 2023-11-11 06:04 | disposition home or self-care (01) ==
PROVIDERS: Emergency Provider Student in an Organized Health Care Education/Training Program; PCP Family Medicine
DX: R55 Syncope and collapse (principal); R42 Dizziness and giddiness; Z20.822 Contact with and (suspected) exposure to COVID-19; E55.9 Vitamin D deficiency, unspecified; K21.9 Gastro-esophageal reflux disease without esophagitis; K22.70 Barrett's esophagus without dysplasia; K58.9 Irritable bowel syndrome, unspecified; M19.90 Unspecified osteoarthritis, unspecified site; M79.7 Fibromyalgia; L40.50 Arthropathic psoriasis, unspecified; G25.81 Restless legs syndrome; F41.8 Other specified anxiety disorders; Z98.84 Bariatric surgery status; Z96.653 Presence of artificial knee joint, bilateral; Z87.891 Personal history of nicotine dependence; Z90.49 Acquired absence of other specified parts of digestive tract; Z90.711 Acquired absence of uterus with remaining cervical stump; Z79.899 Other long term (current) drug therapy; Z79.620 Long term (current) use of immunosuppressive biologic; I45.10 Unspecified right bundle-branch block; R94.31 Abnormal electrocardiogram [ECG] [EKG]
CPT/HCPCS: 36415; 71046; 71275; 80053; 83690; 83735; 84439; 84443; 84480; 84484; 85025; 85380; 85610; 85730; 87637; 93005; 96361; 96365; 96366; 96375; 99284; A9270; J1200; J1885; J2765; J3475; J7030; J7120; Q9967

== ENCOUNTER 2023-11-14 14:19 | Emergency (ER) | payer BC, MEDICARE, SELFPAY ==
[2023-11-14] VITALS (20 sets, daily range): BP systolic 105–111; BP diastolic 67–75; PULSE 70–105; RESP 12–20; TEMP 36.4; O2SAT 91–99
--- NOTE | 2023-11-14 14:47 | ECG_ITS ---
Test Date: 2023-11-14 15:04:48 Measurements Intervals [place] Rate: 78 P: 21 SD: 159 QRS: -11 QRSD: 100 T: 0 QT: 396 QTc: 453 Interpretive Statements SINUS RHYTHM INCOMPLETE RIGHT BUNDLE BRANCH BLOCK BORDERLINE T WAVE ABNORMALITY- INFERIOR LEADS BORDERLINE ECG Compared to ECG 11/11/2023 03:49:02 NO SIGNIFICANT CHANGE Electronically Signed On 11-14-2023 15:19:32 CDT by Earl Leon D.O.
[2023-11-14 15:24] LABS: Alanine Aminotransferase 8 U/L (6-35); Alkaline Phosphatase 70 U/L (38-126); Anion Gap 5 mmol/L (4-12); Aspartate Amino Transferase 21 U/L (14-36); Bilirubin,Total 0.4 mg/dL (0.2-1.3); Blood Urea Nitrogen 12 mg/dL (7-17); Calcium 8.9 mg/dL (8.4-10.2); Carbon Dioxide 28 mmol/L (22-30); Chloride 104 mmol/L (98-107); Estimated CRCL calculation 154 ml/min; Estimated Glomerular Filt Rate > 60; Glucose 89 mg/dL (65-110); Potassium 3.8 mmol/L (3.4-5.0); Sodium 137 mmol/L (137-145)
[2023-11-14 15:40] LABS: Basophils Percent Auto 0.3 % (0.2-1.2); Eosinophils Absolute Auto 0.1 K/mm3 (0-0.3); Eosinophils Percent Auto 2.3 % (0-4.4); Hematocrit 28.5 % (37.0-47.0); Hemoglobin 8.9 g/dL (12.0-15.0); Immature Granulocyte Absolute 0.01 K/mm3 (0.00-0.031); Immature Granulocyte Percent A 0.2 % (0-0.5); Lymphocytes Absolute Auto 1.77 K/mm3 (0.9-3.2); Lymphocytes Percent Auto 30.8 % (18.3-44.2); Mean Corpuscular HGB Conc 31.2 g/dl (32-36); Mean Corpuscular Hemoglobin 26.6 pg (26-34); Mean Corpuscular Volume 85.3 fl (80-100); Mean Platelet Volume 10.1 fl (7.4-10.4); Monocytes Absolute Auto 0.7 K/mm3 (0.1-0.6); Monocytes Percent Auto 12.2 % (2.6-8.5); Neutrophils Absolute Auto 3.1 K/mm3 (1.3-6.7); Neutrophils Percent Auto 54.2 % (45.5-73.1); Platelet Count Result 435 k/mm3 (150-375); Red Blood Count 3.34 M/mm3 (4.2-5.4); Red Cell Distribution Width 18.8 % (11.5-14.5); White Blood Count 5.7 K/mm3 (4.5-10.0)
--- NOTE | 2023-11-14 17:53 | ED.DIZZY ---
HPI - Dizziness General Chief Complaint: Syncope Stated Complaint: 3 syncopal episodes, dizziness, SHEPARD Time Seen by Provider: 11/14/23 17:41 History of Present Illness HPI Narrative: Patient is a 48-year-old female who presents to the emergency department this afternoon complaining of multiple syncopal episodes at and dizziness/ lightheadedness. Patient states that she has had the symptoms for the past 3 years and has a loop recorder that has been in place for the past 3 years but they cannot figure out why she keeps having these syncopal episodes. Patient was seen at our facility 3 days ago and full workup including a CT PE protocol was revealing no acute process. Two sets of troponins obtained then were both negative. discussion with the patient regarding hospital admission versus discharge was initiated and patient elected to discharge and follow up with her doctor. Patient states that she continued to have these syncopal episodes and returned today as she noticed that after the IV last time she felt. Currently denying any chest pain or shortness of breath. No additional symptoms or concerns at this time. Related Data Home Medications Medication Instructions Recorded Confirmed calcium carbonate (Calcium 600) 600 mg PO TID 06/06/20 10/23/23 cholecalciferol (vitamin D3) 125 125 mcg PO DAILY 02/08/22 10/23/23 mcg (5,000 unit) tablet (Vitamin D3) divalproex 500 mg tablet,extended 500 mg PO BID ADHD 02/08/22 10/23/23 release 24 hr multivitamin 1 tablet PO DAILY 02/08/22 10/23/23 golimumab 12.5 mg/mL intravenous See Rx Instructions IV .a5xndeg 06/12/22 10/23/23 solution (Simponi ARIA) gabapentin 600 mg tablet 600 mg PO HS 11/24/22 10/23/23 ropinirole 1 mg tablet 1 mg PO BID RLS 11/24/22 10/23/23 azathioprine 100 mg tablet 150 mg PO DAILY 01/23/23 10/23/23 acetaminophen 500 mg capsule 1,000 mg PO PRN PRN Pain 05/15/23 10/23/23 aripiprazole 10 mg tablet 10 mg PO DAILY 05/15/23 10/23/23 docusate sodium 50 mg capsule 50 mg PO DAILY 05/15/23 10/23/23 (Stool Softener) famotidine 40 mg tablet 40 mg PO QPM 05/15/23 10/23/23 sulfasalazine 500 mg 500 mg PO BID 05/15/23 10/23/23 tablet,delayed release doxepin 10 mg capsule 10 mg PO QHS 08/07/23 10/23/23 Allergies Allergy/AdvReac Type Severity Reaction Status Date / Time amoxicillin Allergy Severe Hives Verified 11/11/23 01:07 Penicillins Allergy Severe Hives Verified 11/11/23 01:07 adhesive Allergy Intermediate BLISTERS/RA Verified 11/11/23 01:07 SH latex Allergy Intermediate Rash Verified 11/11/23 01:07 clindamycin Allergy Mild Swelling Verified 11/11/23 01:07 zolpidem [From Ambien] AdvReac Intermediate sleep Verified 11/11/23 01:07 walking azithromycin AdvReac Mild Nausea and Verified 11/11/23 01:07 Vomiting ibuprofen AdvReac Mild Heartburn Verified 11/11/23 01:07 Review of Systems Review of Systems: All systems are reviewed and are negative unless stated otherwise in the HPI. [facility] Past Medical History Medical History Acid reflux Anemia Anxiety Arthritis [place] esophagus Crohn's proctitis She notes it has been labelled on the Crohn's umbrella, but denies actually having Crohn's Depression Depression with anxiety Endometriosis Enteropathic arthritis Fibroids Fibromyalgia (~2008) Hiatal hernia History of fainting Inflammatory bowel disease Insomnia Interstitial cystitis Irritable bowel syndrome Psoriatic arthritis (~2019) Restless leg syndrome Vitamin D deficiency Surgical History Surgical History History of arthroplasty of right knee (05/26/23) History of bladder surgery History of breast surgery (2018) Incision and drainage of right breast abscess. History of cholecystectomy (2004) History of dilation and curettage 2008 - 2009 multiple History of endometrial ablation History of gastric bypass (2014) History of knee r
--- NOTE | 2023-11-14 17:56 | PC.NURSE ---
patient left after seeing provider. IV removed by charge nurse prior to elopement
[2023-11-14 18:05] LABS: Magnesium 2.1 mg/dL (1.6-2.3)
[2023-11-14 18:16] LABS: Troponin I < 0.012 ng/mL (0.000-0.034)
== END 2023-11-15 02:46 | disposition left against medical advice (07) ==
PROVIDERS: Emergency Provider Emergency Medicine; PCP Family Medicine
DX: R55 Syncope and collapse (principal); E55.9 Vitamin D deficiency, unspecified; D64.9 Anemia, unspecified; M79.7 Fibromyalgia; M19.90 Unspecified osteoarthritis, unspecified site; K21.9 Gastro-esophageal reflux disease without esophagitis; K22.70 Barrett's esophagus without dysplasia; K44.9 Diaphragmatic hernia without obstruction or gangrene; K58.9 Irritable bowel syndrome, unspecified; L40.50 Arthropathic psoriasis, unspecified; G25.81 Restless legs syndrome; F41.8 Other specified anxiety disorders; Z98.84 Bariatric surgery status; Z96.653 Presence of artificial knee joint, bilateral; Z87.891 Personal history of nicotine dependence; Z90.49 Acquired absence of other specified parts of digestive tract; Z90.711 Acquired absence of uterus with remaining cervical stump; Z79.69 Long term (current) use of other immunomodulators and immunosuppressants; Z79.899 Other long term (current) drug therapy
CPT/HCPCS: 36415; 80053; 83735; 84484; 85025; 93005; 99284

== ENCOUNTER 2023-11-23 03:15 | Emergency (ER) | payer BC, MEDICARE, SELFPAY ==
--- NOTE | ~2023-11-23 | CT_ITS ---
EXAMINATION: CT abdomen pelvis w con DATE: 11/23/2023 05:46 INDICATION: Flank pain TECHNIQUE: Computed tomography (CT) of the abdomen and pelvis was performed with 100 mL Omnipaque-350 intravenous contrast. Automated exposure control and iterative reconstruction technique were employe d. The dose-length product was 1347.56 mGy-cm. COMPARISON: None FINDINGS: There is diffuse thickening of the pleura at the 9 mediastinal periphery of the visualized right lowe r lung with associated bandlike and round atelectasis. There is also associated mild increase in the subpleural fat. Left lung base remains clear. Heart size normal. No pericardial or pleural effusion. Small sliding-type hiatal hernia. Postoperative change of prior with Emmie-en-Y gastric bypass procedu re with jejunojejunal anastomosis in the left abdomen. Cholecystectomy clips at the gallbladder fossa with chronic mild dilation of the common bile duct.. Liver, spleen, pancreas, bilateral adrenal glan ds are normal. 2 mm stone versus parenchymal calcification. No interval change in size of a 1.[address] at the lower pole the left kidney with no evident enhancement on the prior MRI but with soft tissu e density on the current study consistent with a complex proteinaceous/hemorrhagic cyst. Normal appen mya. No bowel obstruction. Bladder is normal. The uterus is not identified and has likely been surgic ally resected. Bilateral adnexa are unremarkable. No free intraperitoneal gas or fluid. No pathologic ally enlarged abdominal or pelvic lymphadenopathy. Moderate lower thoracic and lower lumbar spondylos is. IMPRESSION: 1. No acute intra-abdominal/pelvic process. 2. 2 mm nonobstructing stone versus parenchymal calcification at the lower pole of the right kidney. 3. 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 Correlate with r esults from prior thoracentesis. Reviewed, dictated and finalized at location A. IMPRESSION: 1. No acute intra-abdominal/pelvic process. 2. 2 mm nonobstructing stone versus parenchymal calcification at the lower pole of the right kidney. 3. 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 Correlate with results from prior thoracentesis.
[2023-11-23 03:19] VITALS: BP 120/58; PULSE 87; RESP 15; TEMP 36.8; O2SAT 100
--- NOTE | 2023-11-23 03:19 | ECG_ITS ---
Test Date: 2023-11-23 03:24:02 Measurements Intervals [place] Rate: 82 P: 37 MI: 160 QRS: -12 QRSD: 98 T: 12 QT: 382 QTc: 448 Interpretive Statements SINUS RHYTHM WITH OCCASIONAL SUPRAVENTRICULAR PREMATURE COMPLEXES LOW QRS VOLTAGE IN PRECORDIAL LEADS BORDERLINE T WAVE ABNORMALITY- INFERIOR LEADS BASELINE ARTIFACT- I, III, AVL BORDERLINE ECG Compared to ECG 11/14/2023 15:04:48 Low QRS voltage now present Electronically Signed On 11-23-2023 07:32:11 CDT by Earl Leon D.O.
--- NOTE | 2023-11-23 03:31 | ED.ABDPAIN ---
HPI - Abdominal Pain General Chief Complaint: Abdominal Pain Stated Complaint: abd pain Time Seen by Provider: 11/23/23 03:20 History of Present Illness HPI narrative: 48-year-old female presents emergency department for evaluation for right flank pain that started yesterday morning. Patient describes right flank pain with associated nausea. Related Data Home Medications Medication Instructions Recorded Confirmed calcium carbonate (Calcium 600) 600 mg PO TID 06/06/20 10/23/23 cholecalciferol (vitamin D3) 125 125 mcg PO DAILY 02/08/22 10/23/23 mcg (5,000 unit) tablet (Vitamin D3) divalproex 500 mg tablet,extended 500 mg PO BID ADHD 02/08/22 10/23/23 release 24 hr multivitamin 1 tablet PO DAILY 02/08/22 10/23/23 golimumab 12.5 mg/mL intravenous See Rx Instructions IV .[id number] 06/12/22 10/23/23 solution (Simponi ARIA) gabapentin 600 mg tablet 600 mg PO HS 11/24/22 10/23/23 ropinirole 1 mg tablet 1 mg PO BID RLS 11/24/22 10/23/23 azathioprine 100 mg tablet 150 mg PO DAILY 01/23/23 10/23/23 acetaminophen 500 mg capsule 1,000 mg PO PRN PRN Pain 05/15/23 10/23/23 aripiprazole 10 mg tablet 10 mg PO DAILY 05/15/23 10/23/23 docusate sodium 50 mg capsule 50 mg PO DAILY 05/15/23 10/23/23 (Stool Softener) famotidine 40 mg tablet 40 mg PO QPM 05/15/23 10/23/23 sulfasalazine 500 mg 500 mg PO BID 05/15/23 10/23/23 tablet,delayed release doxepin 10 mg capsule 10 mg PO QHS 08/07/23 10/23/23 Allergies Allergy/AdvReac Type Severity Reaction Status Date / Time amoxicillin Allergy Severe Hives Verified 11/11/23 01:07 Penicillins Allergy Severe Hives Verified 11/11/23 01:07 adhesive Allergy Intermediate BLISTERS/RA Verified 11/11/23 01:07 SH latex Allergy Intermediate Rash Verified 11/11/23 01:07 clindamycin Allergy Mild Swelling Verified 11/11/23 01:07 zolpidem [From Ambien] AdvReac Intermediate sleep Verified 11/11/23 01:07 walking azithromycin AdvReac Mild Nausea and Verified 11/11/23 01:07 Vomiting ibuprofen AdvReac Mild Heartburn Verified 11/11/23 01:07 Review of Systems Review of Systems: All systems reviewed & are unremarkable except as noted in HPI and below PMFSH Past Medical History Medical History Acid reflux Anemia Anxiety Arthritis [place] esophagus Crohn's proctitis She notes it has been labelled on the Crohn's umbrella, but denies actually having Crohn's Depression Depression with anxiety Endometriosis Enteropathic arthritis Fibroids Fibromyalgia (~2008) Hiatal hernia History of fainting Inflammatory bowel disease Insomnia Interstitial cystitis Irritable bowel syndrome Psoriatic arthritis (~2019) Restless leg syndrome Vitamin D deficiency Surgical History Surgical History History of arthroplasty of right knee (05/26/23) History of bladder surgery History of breast surgery (2018) Incision and drainage of right breast abscess. History of cholecystectomy (2004) History of dilation and curettage 2008 - 2009 multiple History of endometrial ablation History of gastric bypass (2014) History of knee replacement procedure of right knee 05/26/23 History of left knee replacement (02/2020) Per Dr. Espinoza History of loop recorder (02/2022) For recurrent syncope/near-syncope. History of parotid gland excision (2010) Benign tumor. History of partial hysterectomy History of repair of rectocele (2018) History of thyroid cyst (1993) History of wisdom tooth extraction Family History Family History Father Hypertension Family history of elevated blood lipids Family history of arthritis Mother Hypertension Family history of elevated blood lipids Family history of osteoporosis Family history of malignant neoplasm of breast Grandparent Family history of osteoporosis Hypertension Family history of Alzheimer's dis
[2023-11-23] MEDS: SODIUM CHLORIDE 0.9% IV 1,000 ML 999 ML IV CONT ×2 (03:33→04:39)
[2023-11-23 03:34] LABS: Basophils Percent Auto 0.1 % (0.2-1.2); Eosinophils Absolute Auto 0.1 K/mm3 (0-0.3); Eosinophils Percent Auto 1.6 % (0-4.4); Hematocrit 33.8 % (37.0-47.0); Hemoglobin 10.8 g/dL (12.0-15.0); Immature Granulocyte Absolute 0.02 K/mm3 (0.00-0.031); Immature Granulocyte Percent A 0.3 % (0-0.5); Lymphocytes Absolute Auto 2.41 K/mm3 (0.9-3.2); Mean Corpuscular Hemoglobin 27.1 pg (26-34); Mean Corpuscular Volume 84.9 fl (80-100); Mean Platelet Volume 9.8 fl (7.4-10.4); Monocytes Absolute Auto 0.7 K/mm3 (0.1-0.6); Monocytes Percent Auto 10.3 % (2.6-8.5); Neutrophils Absolute Auto 3.6 K/mm3 (1.3-6.7); Neutrophils Percent Auto 52.7 % (45.5-73.1); Platelet Count Result 559 k/mm3 (150-375); Red Blood Count 3.98 M/mm3 (4.2-5.4); Red Cell Distribution Width 18.6 % (11.5-14.5); White Blood Count 6.9 K/mm3 (4.5-10.0)
[2023-11-23] MEDS: ONDANSETRON INJ 4 MG/2 ML VIAL IV PUSH (03:34)
[2023-11-23] MEDS: HYDROmorphone HCL INJ (*CRX) 1 MG/ML SYR IV PUSH ×2 (03:35→04:40)
[2023-11-23 03:50] LABS: Alanine Aminotransferase 10 U/L (6-35); Albumin Level 4.1 g/dL (3.5-5.1); Alkaline Phosphatase 76 U/L (38-126); Anion Gap 8 mmol/L (4-12); Aspartate Amino Transferase 23 U/L (14-36); Bilirubin,Total 0.3 mg/dL (0.2-1.3); Blood Urea Nitrogen 11 mg/dL (7-17); Carbon Dioxide 30 mmol/L (22-30); Chloride 99 mmol/L (98-107); Estimated CRCL calculation 132 ml/min; Estimated Glomerular Filt Rate > 60; Glucose 86 mg/dL (65-110); Lipase 78 U/L (23-300); Potassium 3.9 mmol/L (3.4-5.0); Sodium 137 mmol/L (137-145)
[2023-11-23 04:32] VITALS: BP 121/78; PULSE 78; RESP 17; O2SAT 94
[2023-11-23 04:55] LABS: Appearance Urine Clear (Clear); Bacteria Urine None Seen /hpf; Bilirubin Urine 1+ (Negative); Blood Urine Negative (Negative); Color Urine Dark Yellow (Yellow); Glucose Urine UA Negative (Negative); Ketones Urine Trace mg/dL (Negative); Leukocyte Esterase Ur Trace LEU/UL (Negative); Nitrate Urine Negative (Negative); Non Pathogenic Casts 0-2; Protein Urine Negative (Negative); RBC Urine 0-2 /hpf (0-2); Specific Grav Ur 1.028 (1.001-1.035); Squamous Epithelial Cell Urine Occasional /hpf (Few); WBC Urine 0-5 /hpf (0-3); pH Urine 6.5 (5.0-9.0)
[2023-11-23 04:59] LABS: Add Urine Microscopic? YES
[2023-11-23 05:45] VITALS: BP 121/82; PULSE 76; RESP 12; O2SAT 97
[2023-11-23 07:10] VITALS: BP 120/74; PULSE 70; RESP 16; TEMP 36.7; O2SAT 100
[2023-11-23 08:00] VITALS: BP 124/68; PULSE 72; RESP 16; TEMP 36.7; O2SAT 100
[2023-11-23 09:00] VITALS: BP 120/70; PULSE 74; RESP 16; TEMP 36.6; O2SAT 100
== END 2023-11-23 09:20 | disposition home or self-care (01) ==
PROVIDERS: Emergency Medicine; Emergency Provider Emergency Medicine; PCP Family Medicine
DX: R10.9 Unspecified abdominal pain (principal); E55.9 Vitamin D deficiency, unspecified; D64.9 Anemia, unspecified; K22.70 Barrett's esophagus without dysplasia; K50.90 Crohn's disease, unspecified, without complications; K21.9 Gastro-esophageal reflux disease without esophagitis; K44.9 Diaphragmatic hernia without obstruction or gangrene; M79.7 Fibromyalgia; N30.10 Interstitial cystitis (chronic) without hematuria; L40.50 Arthropathic psoriasis, unspecified; G25.81 Restless legs syndrome; F41.8 Other specified anxiety disorders; Z98.84 Bariatric surgery status; Z96.653 Presence of artificial knee joint, bilateral; Z87.891 Personal history of nicotine dependence; Z90.49 Acquired absence of other specified parts of digestive tract; Z90.711 Acquired absence of uterus with remaining cervical stump; Z79.899 Other long term (current) drug therapy; R93.421 Abnormal radiologic findings on diagnostic imaging of right kidney; R91.8 Other nonspecific abnormal finding of lung field
CPT/HCPCS: 36415; 74177; 80053; 81001; 83690; 85025; 93005; 96361; 96374; 96375; 96376; 99284; J1170; J2405; J7030; Q9967

== ENCOUNTER 2023-12-29 18:28 | Emergency (ER) | payer BC, MEDICARE, SELFPAY ==
--- NOTE | ~2023-12-29 | XR_ITS ---
EXAM: XR abdomen gastric tube insert DATE: 12/29/2023 20:30 HISTORY: NG . COMPARISON: CT abdomen pelvis, same date. FINDINGS: NG tube, tip and side port project over the stomach. Prior gastric surgery. Right lower halina ng scarring. Normal partially visualized bowel gas pattern. No abnormal abdominal calcification. Bhumi onal bones and soft tissues normal for age. IMPRESSION: NG tube, in good position. Reviewed, dictated and finalized at location K. IMPRESSION: NG tube, in good position.
--- NOTE | ~2023-12-29 | CT_ITS ---
EXAMINATION: CT abdomen pelvis w con DATE: 12/29/2023 19:56 INDICATION: Abdominal pain GI bleed TECHNIQUE: Computed tomography (CT) of the abdomen and pelvis was performed with 100 mL Omnipaque-350 intravenous contrast. Automated exposure control and iterative reconstruction technique were employe d. The dose-length product was 1212.30 mGy-cm. COMPARISON: 11/23/2023 . FINDINGS: Lower thorax: Right basilar scar and pleural thickening. Liver: Normal. Biliary/Gallbladder: Gallbladder is absent. Mild stable intrahepatic and extrahepatic bile duct dilat ion, likely secondary to cholecystectomy. Pancreas: No mass or duct dilation. Spleen: Normal. Adrenals:No mass. Kidneys: 14 mm indeterminate density left midpole lesion, demonstrating long-term stability and likel y representing a proteinaceous or hemorrhagic cyst. No obstructing stone or hydronephrosis. Punctate nonobstructing right lower pole calcification. GI tract: Prior gastric bypass surgery. No small or large bowel dilation. Normal appendix. Mesentery/Peritoneum: No ascites, mass, or free air. Retroperitoneum: No mass. Pelvis: Absent uterus. Normal bilateral ovaries and urinary bladder.. Soft Tissues: Soft tissues and body wall unremarkable. Bones: No acute osseous finding. IMPRESSION: No acute abdominopelvic process detected. Reviewed, dictated and finalized at location K.
[2023-12-29 18:39] VITALS: BP 118/73; PULSE 93; RESP 17; TEMP 36.7; O2SAT 99
[2023-12-29] MEDS: SODIUM CHLORIDE 0.9% IV 1,000 ML 999 ML IV CONT (19:08)
[2023-12-29] MEDS: PANTOPRAZOLE SODIUM IV 40 MG VIAL IV PUSH (19:08)
--- NOTE | 2023-12-29 19:08 | ED.GENADULT ---
HPI - General Adult General Chief complaint: GI Bleed Stated complaint: coffee ground emesis and abd pain Time Seen by Provider: 12/29/23 18:57 History of Present Illness HPI narrative: Patient is a 48-year-old female who presents emergency department with chief complaint of coffee-ground emesis. The patient reports that she has prior history of gastritis and also a gastric bypass patient states that she started having abdominal discomfort today and has had vomiting that was blackish and coffee-ground looking patient reports he is not on any blood thinners does report that she is on omeprazole and also Pepcid patient reports that she has had no blood in her stool that her stool has been black. Related Data Home Medications Medication Instructions Recorded Confirmed calcium carbonate (Calcium 600) 600 mg PO TID 06/06/20 12/17/23 cholecalciferol (vitamin D3) 125 125 mcg PO DAILY 02/08/22 12/17/23 mcg (5,000 unit) tablet (Vitamin D3) divalproex 500 mg tablet,extended 500 mg PO BID ADHD 02/08/22 12/17/23 release 24 hr multivitamin 1 tablet PO DAILY 02/08/22 12/17/23 golimumab 12.5 mg/mL intravenous See Rx Instructions IV .[id number] 06/12/22 12/17/23 solution (Simponi ARIA) gabapentin 600 mg tablet 600 mg PO HS 11/24/22 12/17/23 ropinirole 1 mg tablet 1 mg PO BID RLS 11/24/22 12/17/23 azathioprine 100 mg tablet 150 mg PO DAILY 01/23/23 12/17/23 acetaminophen 500 mg capsule 1,000 mg PO PRN PRN Pain 05/15/23 12/17/23 aripiprazole 10 mg tablet 10 mg PO DAILY 05/15/23 12/17/23 docusate sodium 50 mg capsule 50 mg PO DAILY 05/15/23 12/17/23 (Stool Softener) famotidine 40 mg tablet 40 mg PO QPM 05/15/23 12/17/23 sulfasalazine 500 mg 500 mg PO BID 05/15/23 12/17/23 tablet,delayed release doxepin 10 mg capsule 10 mg PO QHS 08/07/23 12/17/23 ferrous fumarate 325 mg (106 mg 325 mg PO DAILY 11/25/23 12/17/23 iron) tablet Allergies Allergy/AdvReac Type Severity Reaction Status Date / Time amoxicillin Allergy Severe Hives Verified 12/29/23 18:47 Penicillins Allergy Severe Hives Verified 12/29/23 18:47 adhesive Allergy Intermediate BLISTERS/RA Verified 12/29/23 18:47 SH latex Allergy Intermediate Rash Verified 12/29/23 18:47 clindamycin Allergy Mild Swelling Verified 12/29/23 18:47 zolpidem [From Ambien] AdvReac Intermediate sleep Verified 12/29/23 18:47 walking azithromycin AdvReac Mild Nausea and Verified 12/29/23 18:47 Vomiting ibuprofen AdvReac Mild Heartburn Verified 12/29/23 18:47 Review of Systems Review of Systems: A 10 system review of systems was completed on the patient and is negative except for what is stated in the HPI. Nursing and ancillary documentation was reviewed. COUNT INCLUDES THE [facility] Past Medical History Medical History Acid reflux Anemia Anxiety Arthritis [place] esophagus Crohn's proctitis She notes it has been labelled on the Crohn's umbrella, but denies actually having Crohn's Depression Depression with anxiety Endometriosis Enteropathic arthritis Fibroids Fibromyalgia (~2008) Hiatal hernia History of fainting Inflammatory bowel disease Insomnia Interstitial cystitis Irritable bowel syndrome Psoriatic arthritis (~2019) Restless leg syndrome Vitamin D deficiency Surgical History Surgical History History of arthroplasty of right knee (05/26/23) History of bladder surgery History of breast surgery (2018) Incision and drainage of right breast abscess. History of cholecystectomy (2004) History of dilation and curettage 2008 - 2009 multiple History of endometrial ablation History of gastric bypass (2014) History of knee replacement procedure of right knee 05/26/23 History of left knee replacement (02/2020) Per Dr. Espinoza History of loop recorder (02/2022) For recurrent syncope/near-syncope. History of parotid gland excision (2010) Benign tumor. History
[2023-12-29 19:13] LABS: Basophils Percent Auto 0.1 % (0.2-1.2); Eosinophils Absolute Auto 0.1 K/mm3 (0-0.3); Eosinophils Percent Auto 2.1 % (0-4.4); Hematocrit 33.5 % (37.0-47.0); Hemoglobin 10.1 g/dL (12.0-15.0); Immature Granulocyte Absolute 0.02 K/mm3 (0.00-0.031); Immature Granulocyte Percent A 0.3 % (0-0.5); Lymphocytes Absolute Auto 1.92 K/mm3 (0.9-3.2); Lymphocytes Percent Auto 28.2 % (18.3-44.2); Mean Corpuscular HGB Conc 30.1 g/dl (32-36); Mean Corpuscular Hemoglobin 25.7 pg (26-34); Mean Corpuscular Volume 85.2 fl (80-100); Monocytes Absolute Auto 0.8 K/mm3 (0.1-0.6); Monocytes Percent Auto 11.8 % (2.6-8.5); Neutrophils Absolute Auto 3.9 K/mm3 (1.3-6.7); Neutrophils Percent Auto 57.5 % (45.5-73.1); Platelet Count Result 443 k/mm3 (150-375); Red Blood Count 3.93 M/mm3 (4.2-5.4); Red Cell Distribution Width 17.1 % (11.5-14.5); White Blood Count 6.8 K/mm3 (4.5-10.0)
[2023-12-29 19:17] VITALS: BP 108/75; PULSE 87; RESP 18; O2SAT 97
[2023-12-29 19:29] LABS: Lactic Acid Reflex 0.8 mmol/L (0.7-2.0)
[2023-12-29 19:30] LABS: Alanine Aminotransferase 11 U/L (6-35); Alkaline Phosphatase 87 U/L (38-126); Anion Gap 6 mmol/L (4-12); Aspartate Amino Transferase 25 U/L (14-36); Bilirubin,Total 0.2 mg/dL (0.2-1.3); Blood Urea Nitrogen 15 mg/dL (7-17); Calcium 8.9 mg/dL (8.4-10.2); Carbon Dioxide 29 mmol/L (22-30); Chloride 102 mmol/L (98-107); Estimated CRCL calculation 130 ml/min; Estimated Glomerular Filt Rate > 60; Glucose 84 mg/dL (65-110); Sodium 137 mmol/L (137-145)
[2023-12-29] MEDS: LORazepam INJ (*CRX) 2 MG/ML VIAL 0.5 MG IV PUSH (19:42)
[2023-12-29] MEDS: LIDOCAINE HCL 2% GEL UROJET 10 ML PKG (19:42)
[2023-12-29 20:18] VITALS: BP 127/81; PULSE 99; RESP 18; O2SAT 99
[2023-12-29 20:19] LABS: Add Urine Microscopic? YES; Appearance Urine Cloudy (Clear); Bacteria Urine None Seen /hpf; Bilirubin Urine 1+ (Negative); Blood Urine Negative (Negative); Color Urine Dark Yellow (Yellow); Glucose Urine UA Negative (Negative); Ketones Urine Trace mg/dL (Negative); Leukocyte Esterase Ur Negative LEU/UL (Negative); Nitrate Urine Negative (Negative); Non Pathogenic Casts 0-2; Protein Urine Negative (Negative); RBC Urine 0-2 /hpf (0-2); Specific Grav Ur 1.024 (1.001-1.035); Squamous Epithelial Cell Urine None Seen /hpf (Few); WBC Urine 0-5 /hpf (0-3)
[2023-12-29 20:21] LABS: INR 0.9
[2023-12-29 20:22] LABS: Partial Thromboplastin Time 36.3 Seconds (22.3-36.8)
== END 2023-12-29 21:22 | disposition home or self-care (01) ==
PROVIDERS: Emergency Provider Emergency Medicine; PCP Family Medicine
DX: K29.70 Gastritis, unspecified, without bleeding (principal); D64.9 Anemia, unspecified; E55.9 Vitamin D deficiency, unspecified; N80.9 Endometriosis, unspecified; K50.90 Crohn's disease, unspecified, without complications; K44.9 Diaphragmatic hernia without obstruction or gangrene; M19.90 Unspecified osteoarthritis, unspecified site; M79.7 Fibromyalgia; L40.50 Arthropathic psoriasis, unspecified; G25.81 Restless legs syndrome; Z98.84 Bariatric surgery status; Z96.653 Presence of artificial knee joint, bilateral; Z87.891 Personal history of nicotine dependence; Z90.49 Acquired absence of other specified parts of digestive tract; Z90.711 Acquired absence of uterus with remaining cervical stump
CPT/HCPCS: 36415; 74177; 80053; 81001; 83605; 85025; 85610; 85730; 86850; 86900; 86901; 95864; 96361; 96374; 96375; 99284; J2060; J2470; J7030; Q9967

== ENCOUNTER 2024-01-02 11:11 | Emergency (ER) | payer BC, MEDICARE, SELFPAY ==
--- NOTE | ~2024-01-02 | CT_ITS ---
EXAMINATION: CT abdomen pelvis w con DATE: 01/02/2024 14:19 INDICATION: Upper abdominal pain. Black vomiting. TECHNIQUE: Computed tomography (CT) of the abdomen and pelvis was performed with 100 mL Omnipaque-350 intravenous contrast. Automated exposure control and iterative reconstruction technique were employe d. The dose-length product was 1334.91 mGy-cm. COMPARISON: 12/29/2023 FINDINGS: Chronic pleural thickening of the non mediastinal peripheral pleura along the visualized right middle and lower lobes small associated discoid atelectasis in the right middle and lower lobes. Visualized left lower lung is clear. Heart size is normal. No pericardial or pleural effusion. Small sliding-ty pe hiatal hernia with postoperative changes of prior gastric bypass procedure. Unchanged mild intra a nd extrahepatic ductal dilation likely related to prior cholecystectomy with surgical clips in the ga llbladder fossa. Mild focal hepatic steatosis ligament teres. Spleen, pancreas and bilateral adrenal glands are normal. 2 mm nonobstructing stone at the lower pole of the right kidney. Unchanged 1.3 cm likely complex cyst at the left kidney which is without enhancement on a prior pre and postcontrast M RI dated 11/14/2021. Left lower quadrant jejunal jejunal anastomosis. No bowel obstruction. Normal appe ndix. Bladder is normal. The uterus is not identified and has likely been surgically resected. Bilate ral adnexa are unremarkable. No free intraperitoneal gas or fluid. No pathologically enlarged abdomin al or pelvic lymphadenopathy. Moderate lower thoracic and lower lumbar spondylosis. IMPRESSION: 1. No acute intra-abdominal/pelvic process. 2. 2 mm nonobstructing right renal stone. 3. 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 Reviewed, dictated and finalized at location A. IMPRESSION: 1. No acute intra-abdominal/pelvic process. 2. 2 mm nonobstructing right renal stone. 3. 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
[2024-01-02 12:18] VITALS: BP 123/70; PULSE 108; RESP 16; TEMP 36.6; O2SAT 93
--- NOTE | 2024-01-02 13:03 | ED.GIBLEED ---
HPI - GI Bleed General Chief complaint: GI Bleed Stated complaint: black vomit Time Seen by Provider: 01/02/24 13:03 Focused HPI: Patient is a 48-year-old female who presents the ED with report of coffee-ground emesis. Patient reports she has been vomiting black material since Friday. She was seen in the ED here on Friday, NG lavage was attempted, however they were unable to obtain adequate stable. CT scan was obtained and unremarkable. Patient reports symptoms have since persisted. She reports continuous nausea with dry heaving, worsening abdominal pain throughout her upper abdomen. Patient does have history of gastritis in pain and GI bleed. Currently takes omeprazole and Pepcid. Has had scope, but not recently. Does report recent constipation, states she was able to pass a small amount of hard stools today. States stools have been dark in color, but not completely black. Takes an asa 81mg daily, no other blood thinners. GENERAL: Well-appearing, well-nourished, and in no acute distress. HEAD: Normocephalic, atraumatic. CHEST: Clear to auscultation. ?No respiratory distress. HEART: Regular rate and rhythm.? ABD: Mild diffuse tenderness throughout upper abdomen, normoactive BS. NEURO: ?Alert and oriented x3. Patient screened in triage and initial orders placed.? ?Additional care and disposition to be based upon?diagnostic testing and treatment. Source: patient Mode of arrival: ambulatory Limitations: no limitations Related Data Home Medications Medication Instructions Recorded Confirmed calcium carbonate (Calcium 600) 600 mg PO TID 06/06/20 12/17/23 cholecalciferol (vitamin D3) 125 125 mcg PO DAILY 02/08/22 12/17/23 mcg (5,000 unit) tablet (Vitamin D3) divalproex 500 mg tablet,extended 500 mg PO BID ADHD 02/08/22 12/17/23 release 24 hr multivitamin 1 tablet PO DAILY 02/08/22 12/17/23 golimumab 12.5 mg/mL intravenous See Rx Instructions IV .[id number] 06/12/22 12/17/23 solution (Simponi ARIA) gabapentin 600 mg tablet 600 mg PO HS 11/24/22 12/17/23 ropinirole 1 mg tablet 1 mg PO BID RLS 11/24/22 12/17/23 azathioprine 100 mg tablet 150 mg PO DAILY 01/23/23 12/17/23 acetaminophen 500 mg capsule 1,000 mg PO PRN PRN Pain 05/15/23 12/17/23 aripiprazole 10 mg tablet 10 mg PO DAILY 05/15/23 12/17/23 docusate sodium 50 mg capsule 50 mg PO DAILY 05/15/23 12/17/23 (Stool Softener) famotidine 40 mg tablet 40 mg PO QPM 05/15/23 12/17/23 sulfasalazine 500 mg 500 mg PO BID 05/15/23 12/17/23 tablet,delayed release doxepin 10 mg capsule 10 mg PO QHS 08/07/23 12/17/23 Allergies Allergy/AdvReac Type Severity Reaction Status Date / Time amoxicillin Allergy Severe Hives Verified 01/02/24 12:23 Penicillins Allergy Severe Hives Verified 01/02/24 12:23 adhesive Allergy Intermediate BLISTERS/RA Verified 01/02/24 12:23 SH latex Allergy Intermediate Rash Verified 01/02/24 12:23 clindamycin Allergy Mild Swelling Verified 01/02/24 12:23 zolpidem [From Ambien] AdvReac Intermediate sleep Verified 01/02/24 12:23 walking azithromycin AdvReac Mild Nausea and Verified 01/02/24 12:23 Vomiting ibuprofen AdvReac Mild Heartburn Verified 01/02/24 12:23 [facility] Past Medical History Medical History Acid reflux Anemia Anxiety Arthritis [place] esophagus Crohn's proctitis She notes it has been labelled on the Crohn's umbrella, but denies actually having Crohn's Depression Depression with anxiety Endometriosis Enteropathic arthritis Fibroids Fibromyalgia (~2008) Hiatal hernia History of fainting Inflammatory bowel disease Insomnia Interstitial cystitis Irritable bowel syndrome Psoriatic arthritis (~2019) Restless leg syndrome Vitamin D deficiency Surgical History Surgical History History of arthroplasty of right knee (05/26/23) History of bladder surgery History of breast surgery (2019) Inc
[2024-01-02 13:11] LABS: Basophils Percent Auto 0.1 % (0.2-1.2); Eosinophils Absolute Auto 0.1 K/mm3 (0-0.3); Eosinophils Percent Auto 1.5 % (0-4.4); Hematocrit 35.4 % (37.0-47.0); Hemoglobin 10.8 g/dL (12.0-15.0); Immature Granulocyte Absolute 0.02 K/mm3 (0.00-0.031); Immature Granulocyte Percent A 0.3 % (0-0.5); Lymphocytes Absolute Auto 2.41 K/mm3 (0.9-3.2); Lymphocytes Percent Auto 35.5 % (18.3-44.2); Mean Corpuscular HGB Conc 30.5 g/dl (32-36); Mean Corpuscular Hemoglobin 25.4 pg (26-34); Mean Corpuscular Volume 83.1 fl (80-100); Mean Platelet Volume 9.8 fl (7.4-10.4); Monocytes Absolute Auto 0.6 K/mm3 (0.1-0.6); Monocytes Percent Auto 9.1 % (2.6-8.5); Neutrophils Absolute Auto 3.6 K/mm3 (1.3-6.7); Neutrophils Percent Auto 53.5 % (45.5-73.1); Platelet Count Result 456 k/mm3 (150-375); Red Blood Count 4.26 M/mm3 (4.2-5.4); Red Cell Distribution Width 17.2 % (11.5-14.5); White Blood Count 6.8 K/mm3 (4.5-10.0)
[2024-01-02 13:36] LABS: Prothrombin Time 13.9 Seconds (11.1-14.7)
[2024-01-02 13:37] LABS: Partial Thromboplastin Time 31.7 Seconds (22.3-36.8)
[2024-01-02 13:38] LABS: Alanine Aminotransferase 10 U/L (6-35); Albumin Level 4.1 g/dL (3.5-5.1); Alkaline Phosphatase 88 U/L (38-126); Anion Gap 8 mmol/L (4-12); Aspartate Amino Transferase 30 U/L (14-36); Bilirubin,Total 0.2 mg/dL (0.2-1.3); Blood Urea Nitrogen 9 mg/dL (7-17); Calcium 9.1 mg/dL (8.4-10.2); Carbon Dioxide 27 mmol/L (22-30); Chloride 101 mmol/L (98-107); Estimated CRCL calculation 130 ml/min; Estimated Glomerular Filt Rate > 60; Glucose 86 mg/dL (65-110); Sodium 136 mmol/L (137-145)
--- NOTE | 2024-01-02 15:23 | PC.NURSE ---
came to triage desk to report she has been here a long time and does not want to wait any longer. Will f/u with PCP. Has not had any vomiting or dry heaving in the ED. SLN removed and pt walked out with another person, gait steady, skin pwd.
== END 2024-01-02 15:26 | disposition left against medical advice (07) ==
PROVIDERS: Emergency Medicine; Emergency Provider Physician Assistant; PCP Family Medicine
DX: K92.0 Hematemesis (principal); R10.9 Unspecified abdominal pain; Z87.891 Personal history of nicotine dependence; Z79.82 Long term (current) use of aspirin
CPT/HCPCS: 36415; 74177; 80053; 85025; 85610; 85730; 86850; 86900; 86901; 99284; Q9967

== ENCOUNTER 2024-01-04 12:27 | Observation (INO) | payer BC, MEDICARE, SELFPAY ==
[2024-01-04] VITALS (8 sets, daily range): BP systolic 102–125; BP diastolic 64–78; PULSE 64–95; RESP 12–18; TEMP 36.4–37.2; O2SAT 93–99; BMI 33.8
--- NOTE | ~2024-01-04 | CT_ITS ---
EXAMINATION: CTA abdomen pelvis DATE: 01/04/2024 16:34 INDICATION: GI bleeding? recurrent, hx bypass TECHNIQUE: Computed tomography angiography (CTA) of the abdomen and pelvis was performed with 100 mL Omnipaque-350 intravenous contrast in the arterial phase. Automated exposure control and iterative re construction technique were employed. The dose-length product was 1269.60 mGy-cm. COMPARISON: 01/02/2024. FINDINGS: Lower thorax: Chronic stable right pleural thickening and right basilar scarring. Liver: Normal. Biliary/Gallbladder: Gallbladder is absent. Chronic stable intra and extra hepatic bile duct dilation likely secondary to cholecystectomy. Pancreas: No mass or duct dilation. Spleen: Normal. Adrenals:No mass. Kidneys: No suspicious mass, obstructing stone, or hydronephrosis. Stable hyperdense left midpole kraig al mass, benign features on a prior MRI. GI tract: Status post gastric bypass. Uncomplicated jejunal anastomosis. No small or large bowel dila tion. Normal appendix. Diverticulosis without diverticulitis. Mesentery/Peritoneum: No ascites, mass, or free air. Retroperitoneum: No mass. Normal enhancing abdominal arteries. No dissection or aneurysm. No signific ant stenosis. Pelvis: Normal urinary bladder. Absent uterus.. Soft Tissues: Soft tissues and body wall unremarkable. Bones: No acute osseous finding. IMPRESSION: No acute abdominopelvic process detected. Reviewed, dictated and finalized at location K.
--- NOTE | 2024-01-04 15:32 | ED.GIBLEED ---
HPI - GI Bleed General Chief complaint: GI Bleed Stated complaint: sent here for admission Time Seen by Provider: 01/04/24 15:18 History of Present Illness HPI Narrative: This is a 48-year-old female with a past medical history significant for chronic gastritis, gastric bypass surgery, questionable inflammatory bowel disease. Today patient presents to the emergency department with a chief complaint of coffee-ground emesis for last 6 days. Patient has been seen several times in the emergency department over the last few days for similar complaints and received workups including CT scans and laboratory evaluation followed by NG tube that did not return the blood. She was seen 2 days prior but did not get evaluated by a provider prior to eloping from the emergency department. Today she presents with persistent nausea, vomiting of coffee-ground emesis and now she has started developing bright red streaks of blood in her normal formed stool. Denies any fever chills but states she is having some epigastric abdominal discomfort. Denies any chest pain, shortness a breath, headache, vision changes. She was otherwise in her normal state of health last week. She previously was taking iron supplements but was told to stop it on by her primary care provider and oncologist. She has been taking them for iron deficiency anemia according to herself. She does not remember her last EGD or colonoscopy but states she had a cancerous/precancers polyp that was removed previously. Related Data Home Medications Medication Instructions Recorded Confirmed cholecalciferol (vitamin D3) 125 125 mcg PO DAILY 02/08/22 01/04/24 mcg (5,000 unit) tablet (Vitamin D3) divalproex 500 mg tablet,extended 500 mg PO BID ADHD 02/08/22 01/04/24 release 24 hr multivitamin 1 tablet PO HS 02/08/22 01/04/24 gabapentin 600 mg tablet 600 mg PO TID 11/24/22 01/04/24 ropinirole 1 mg tablet 1 mg PO BID RLS 11/24/22 01/04/24 azathioprine 100 mg tablet 150 mg PO DAILY 01/23/23 01/04/24 acetaminophen 500 mg capsule 1,000 mg PO PRN PRN Pain 05/15/23 01/04/24 aripiprazole 10 mg tablet 10 mg PO DAILY 05/15/23 01/04/24 docusate sodium 50 mg capsule 50 mg PO TID 05/15/23 01/04/24 (Stool Softener) famotidine 40 mg tablet 40 mg PO QPM 05/15/23 01/04/24 sulfasalazine 500 mg 500 mg PO BID 05/15/23 01/04/24 tablet,delayed release doxepin 10 mg capsule 10 mg PO QHS 08/07/23 01/04/24 aspirin 81 mg tablet 81 mg PO DAILY 01/04/24 01/04/24 calcium citrate 150 mg capsule 150 mg PO DAILY 01/04/24 01/04/24 Allergies Allergy/AdvReac Type Severity Reaction Status Date / Time amoxicillin Allergy Severe Hives Verified 01/02/24 12:23 Penicillins Allergy Severe Hives Verified 01/02/24 12:23 adhesive Allergy Intermediate BLISTERS/RA Verified 01/02/24 12:23 SH latex Allergy Intermediate Rash Verified 01/02/24 12:23 clindamycin Allergy Mild Swelling Verified 01/02/24 12:23 zolpidem [From Ambien] AdvReac Intermediate sleep Verified 01/02/24 12:23 walking azithromycin AdvReac Mild Nausea and Verified 01/02/24 12:23 Vomiting ibuprofen AdvReac Mild Heartburn Verified 01/02/24 12:23 Review of Systems Review of Systems: As reviewed above in HPI [facility] Past Medical History Medical History (Updated 01/04/24 @ 22:43 by Jean Armijo MD) Acid reflux Anemia Anxiety Arthritis Angeles esophagus Crohn's proctitis She notes it has been labelled on the Crohn's umbrella, but denies actually having Crohn's Depression Depression with anxiety Endometriosis Enteropathic arthritis Fibroids Fibromyalgia (~2008) Hiatal hernia History of fainting Inflammatory bowel disease Insomnia Interstitial cystitis Irritable bowel syndrome Psoriatic arthritis (~2019) Restless leg syndrome Vitamin D deficiency Surgical History Surgical History History of arthroplasty of right knee (05/26/23) History of bladder surge
[2024-01-04] MEDS: PANTOPRAZOLE SODIUM IV 40 MG VIAL 80 MG IV PUSH (15:47)
[2024-01-04] MEDS: MORPHINE SULFATE (*CRX) 4 MG/ML INJ 6 MG IV PUSH (15:48)
[2024-01-04] MEDS: METOCLOPRAMIDE HCL INJ 10 MG/2 ML VIAL IV PUSH (15:48)
[2024-01-04] MEDS: diphenhydrAMINE HCl INJ 50 MG/ML VIAL 25 MG IV PUSH (15:49)
[2024-01-04] MEDS: SODIUM CHLORIDE 0.9% IV 1,000 ML 999 ML IV CONT (15:49)
[2024-01-04 15:54] LABS: Basophils Percent Auto 0.3 % (0.2-1.2); Eosinophils Absolute Auto 0.2 K/mm3 (0-0.3); Eosinophils Percent Auto 2.7 % (0-4.4); Hematocrit 34.3 % (37.0-47.0); Hemoglobin 10.5 g/dL (12.0-15.0); Immature Granulocyte Absolute 0.01 K/mm3 (0.00-0.031); Immature Granulocyte Percent A 0.2 % (0-0.5); Lymphocytes Absolute Auto 1.85 K/mm3 (0.9-3.2); Lymphocytes Percent Auto 30.9 % (18.3-44.2); Mean Corpuscular HGB Conc 30.6 g/dl (32-36); Mean Corpuscular Hemoglobin 25.7 pg (26-34); Mean Corpuscular Volume 83.9 fl (80-100); Mean Platelet Volume 10.4 fl (7.4-10.4); Monocytes Absolute Auto 0.7 K/mm3 (0.1-0.6); Monocytes Percent Auto 11.5 % (2.6-8.5); Neutrophils Absolute Auto 3.3 K/mm3 (1.3-6.7); Neutrophils Percent Auto 54.4 % (45.5-73.1); Platelet Count Result 452 k/mm3 (150-375); Red Blood Count 4.09 M/mm3 (4.2-5.4); Red Cell Distribution Width 17.2 % (11.5-14.5)
[2024-01-04 16:04] LABS: Prothrombin Time 13.5 Seconds (11.1-14.7)
[2024-01-04 16:05] LABS: Partial Thromboplastin Time 37.5 Seconds (22.3-36.8)
[2024-01-04 16:06] LABS: Lactic Acid Reflex 0.9 mmol/L (0.7-2.0)
[2024-01-04 16:07] LABS: Anion Gap 7 mmol/L (4-12); Carbon Dioxide 33 mmol/L (22-30); Chloride 96 mmol/L (98-107); Potassium 4.1 mmol/L (3.4-5.0); Sodium 136 mmol/L (137-145)
[2024-01-04 16:08] LABS: Alanine Aminotransferase 9 U/L (6-35); Albumin Level 4.1 g/dL (3.5-5.1); Alkaline Phosphatase 80 U/L (38-126); Aspartate Amino Transferase 23 U/L (14-36); Bilirubin,Total 0.3 mg/dL (0.2-1.3); Blood Urea Nitrogen 13 mg/dL (7-17); Estimated CRCL calculation 132 ml/min; Estimated Glomerular Filt Rate > 60; Glucose 81 mg/dL (65-110); Magnesium 2.1 mg/dL (1.6-2.3)
--- NOTE | 2024-01-04 21:42 | PM.IMHP ---
H&P: HPI History of Present Illness Date/Time: 01/04/24 21:42 Chief Complaint: Coffee ground emesis Narrative: This is a 48-year-old female with a significant past medical history of anxiety, Angeles's esophagus, Crohn's proctitis, gastritis,depression, fibromyalgia, psoriatic arthritis, endometriosis, GERD, restless leg syndrome, status post gastric bypass, tobacco abuse, marijuana use who presents to the hospital with complaint of coffee-ground emesis for the last 6 days. She was recently seen in the ER on 12/29/2023 and again on 01/02/2024 with similar presentation and negative workup. She then presented to her primary care doctor who instructed her to come back to the ED to be re-evaluated. patient does report a history of psoriatic arthritis and has been taking ibuprofen on a regular basis twice a day for pain control. She denies any fever, chills, diarrhea, chest pain, shortness a breath. She reports nausea, vomiting, abdominal pain left and right lower quadrant and umbilical. Last colonoscopy that was uploaded to the chart was on 03/18/2023 at [facility] she was found to have a small polyp that was removed, and moderate-sized internal hemorrhoids. Workup in the hospital included a CTA of the abdomen and pelvis which was negative for any acute abdominopelvic process. Initial labs showed a normal white blood cell count of 6.0, a stable hemoglobin of 10.5, platelet count 452 INR 1.0, PTT 37.5, sodium 136, chloride 96, liver enzymes were normal, lactic acid 0.9. Patient was given 1 L of normal saline, Protonix, Reglan, Benadryl, and pain medication while in the ED. GI was consulted and plans on doing scope tomorrow. Review of Systems Review of Systems: All systems reviewed & are unremarkable except as noted in HPI and below Constitutional: Constitutional: Reports as per HPI and Reports no additional constitutional complaints Eyes: Eyes: Reports as per HPI and Reports no additional eye complaints ENT: Reports system reviewed and no additional complaints, except as documented and Reports as per HPI Cardiovascular: Cardiovascular: Reports as per HPI and Reports no additional cardiovascular complaints Respiratory: Respiratory: Reports as per HPI and Reports no additional respiratory complaints Gastrointestinal: Gastrointestinal: Reports as per HPI and Reports no additional gastrointestinal complaints Genitourinary: Genitourinary: Reports no additional female genitourinary complaints and Reports as per HPI Musculoskeletal: Musculoskeletal: Reports no additional musculoskeletal complaints and Reports as per HPI Integumentary/Breasts: Skin/Breast: Reports system reviewed and no additional complaints, except as docu and Reports as per HPI Neurologic: Reports system reviewed and no additional complaints, except as documented and Reports as per HPI Psychiatric: Psychiatric: Reports no additional psychiatric complaints and Reports as per HPI [facility] Past Medical History Medical History Acid reflux Anemia Anxiety Arthritis Angeles esophagus Crohn's proctitis She notes it has been labelled on the Crohn's umbrella, but denies actually having Crohn's Depression Depression with anxiety Endometriosis Enteropathic arthritis Fibroids Fibromyalgia (~2008) Hiatal hernia History of fainting Inflammatory bowel disease Insomnia Interstitial cystitis Irritable bowel syndrome Psoriatic arthritis (~2019) Restless leg syndrome Vitamin D deficiency Surgical History Surgical History History of arthroplasty of right knee (05/26/23) History of bladder surgery History of breast surgery (2019) Incision and drainage of right breast abscess. History of cholecystectomy (2005) History of dilation and curettage 2008 - 2010 multiple History of endometrial ablation History of gastric bypass (2014) History of knee
[2024-01-04] MEDS: HYDROmorphone HCL INJ (*CRX) 1 MG/ML SYR 0.5 MG IV PUSH (21:44)
--- NOTE | 2024-01-04 22:12 | ADMGEN ---
This patient, Corrie Lieberman, was admitted to 2 Medical Room 242-01. Patient/family oriented to hospital policies and general routines including ID bracelet, bed and alarms, visiting hours, pain management, procedures, bathroom and other care routines, personal items, smoking policy, room service/diet, and visiting hours. Information on how to activate the Rapid Response Team has been discussed. Patient/Family are encouraged to report perceived risks to care and to ask questions if they do not understand what they are told or what they should do.
[2024-01-04] MEDS: DIVALPROEX SODIUM ER 500 MG TAB.24H PO (23:22)
[2024-01-04] MEDS: MULTIVITAMINS THERAPEUTIC TAB (*BKC) 1 TABLET PO (23:22)
[2024-01-04] MEDS: DOXEPIN HCL 10 MG CAPSULE PO (23:22)
[2024-01-04] MEDS: DULoxetine HCL 60 MG CAPSULE.DR PO (23:23)
[2024-01-04] MEDS: rOPINIRole HCL 1 MG TABLET PO (23:23)
[2024-01-05 05:13] VITALS: BP 94/67; PULSE 68; RESP 14; TEMP 36.4; O2SAT 95
[2024-01-05] MEDS: diphenhydrAMINE HCl INJ 50 MG/ML VIAL 25 MG IV PUSH (05:30)
[2024-01-05 06:13] LABS: Basophils Percent Auto 0.4 % (0.2-1.2); Eosinophils Absolute Auto 0.1 K/mm3 (0-0.3); Eosinophils Percent Auto 2.8 % (0-4.4); Hematocrit 30.4 % (37.0-47.0); Immature Granulocyte Absolute 0.01 K/mm3 (0.00-0.031); Immature Granulocyte Percent A 0.2 % (0-0.5); Lymphocytes Absolute Auto 1.48 K/mm3 (0.9-3.2); Lymphocytes Percent Auto 29.9 % (18.3-44.2); Mean Corpuscular HGB Conc 29.6 g/dl (32-36); Mean Corpuscular Hemoglobin 25.4 pg (26-34); Mean Corpuscular Volume 85.6 fl (80-100); Mean Platelet Volume 10.2 fl (7.4-10.4); Monocytes Absolute Auto 0.7 K/mm3 (0.1-0.6); Monocytes Percent Auto 13.7 % (2.6-8.5); Neutrophils Absolute Auto 2.6 K/mm3 (1.3-6.7); Platelet Count Result 389 k/mm3 (150-375); Red Blood Count 3.55 M/mm3 (4.2-5.4); Red Cell Distribution Width 17.2 % (11.5-14.5)
[2024-01-05 06:34] LABS: Alanine Aminotransferase 8 U/L (6-35); Albumin Level 3.3 g/dL (3.5-5.1); Alkaline Phosphatase 72 U/L (38-126); Anion Gap 4 mmol/L (4-12); Aspartate Amino Transferase 21 U/L (14-36); Bilirubin,Total 0.3 mg/dL (0.2-1.3); Blood Urea Nitrogen 11 mg/dL (7-17); Calcium 8.5 mg/dL (8.4-10.2); Carbon Dioxide 33 mmol/L (22-30); Chloride 99 mmol/L (98-107); Estimated CRCL calculation 132 ml/min; Estimated Glomerular Filt Rate > 60; Glucose 83 mg/dL (65-110); Potassium 4.4 mmol/L (3.4-5.0); Sodium 136 mmol/L (137-145)
--- NOTE | 2024-01-05 06:46 | PM.IMPN ---
Progress Note: A&P Assessment and Plan (1) Coffee ground emesis: Code(s): K92.0 - Hematemesis Status: Acute Assessment and Plan: History of psoriatic arthritis and has been taken ibuprofen on a regular basis twice a day for her pain. Reports 6 days of coffee-ground emesis. She was seen and evaluated in the ED on 12/29/2023 and 01/02/2024 for similar symptoms. She seen her primary care physician who prompted her to come back to the ED for further evaluation. - Continue Protonix - hemoglobin stable at 10.5 - Abdomen/pelvis CTA: No acute abdominopelvic process - hold aspirin - GI consulted plan for patient to have EGD and possible colonoscopy tomorrow. (2) Abdominal pain: Qualifiers: Abdominal location: unspecified location Qualified Code(s): R10.9 - Unspecified abdominal pain Code(s): R10.9 - Unspecified abdominal pain Status: Acute Assessment and Plan: - Tylenol, tramadol and morphine ordered for pain control (3) Acid reflux: Code(s): K21.9 - Gastro-esophageal reflux disease without esophagitis Status: Acute Assessment and Plan: Patient received Protonix 80 mg while in the ED - continue Pepcid (4) Depression with anxiety: Code(s): F41.8 - Other specified anxiety disorders Status: Acute Assessment and Plan: Continue home medications. - Cymbalta, Abilify, Depakote, doxepin (5) Morbid obesity: Code(s): E66.01 - Morbid (severe) obesity due to excess calories Status: Acute Assessment and Plan: BMI 33.8, 107 kg status post gastric bypass surgery Subjective Date/time seen: 01/05/24 06:46 Interval history: 48-year-old female with a significant past medical history of anxiety, Angeles's esophagus, Crohn's proctitis, gastritis,depression, fibromyalgia, psoriatic arthritis, endometriosis, GERD, restless leg syndrome, status post gastric bypass, tobacco abuse, marijuana use who presents to the hospital with complaint of coffee-ground emesis for the last 6 days. Patient does report a history of psoriatic arthritis and has been taking ibuprofen on a regular basis twice a day for pain control. Review of Systems Review of Systems: All systems reviewed & are unremarkable except as noted in HPI and below Exam Narrative: AF General: well nourished, well-developed female in no acute respiratory distress who is nontoxic appearing, lying semi recumbent in bed. HEENT: Normocephalic. Atraumatic. Pupils equal round reactive to light. Extraocular movement intact. Sclera clear and anicteric. Nares patent. No oral lesions. Moist mucous membranes. Tongue is midline. Palate bettina symmetrically. No facial asymmetry. Neck: Neck was supple. No dominant adenopathy, thyromegaly or masses. 2+ carotid upstrokes without bruits. Chest: Lungs are clear to auscultation bilaterlly. No wheezes or crackles. CV: Heart was regular rate and rhythm. S1-S2. No murmurs, gallops, or rubs. Abd: Abdomen was soft. Nontender. Nondistended. Postive bowel sounds. No organomegaly or masses. Ext: No clubbing, cyanosis, or edema. 2+ DP pulses bilaterally. Neuro: Patient is alert and oriented x4. Strenth is 5/5 in both upper and lower extremities. Cranial nerves 2-12 are intact. Speech is clear. Psych: Normal nood and affect. Patient is pleasant and cooperative. Skin: Warm and dry. No rashes noted. Objective Data Vital Signs Vital Signs: Vital Signs - 24 hr 01/04/24 12:50 01/04/24 15:15 01/04/24 17:00 Temperature 98.1 F 97.9 F 98.9 F Pulse Rate 95 72 66 Respiratory Rate 18 18 12 Blood Pressure 109/66 110/65 120/74 Pulse Oximetry 98 98 93 Oxygen Delivery Room Air 01/04/24 18:30 01/04/24 21:33 01/04/24 19:30 Temperature 97.9 F 98.9 F Pulse Rate 65 73 64 Respiratory Rate 12 18 18 Blood Pressure 117/74 102/65 121/78 Pulse Oximetry 98 98 98 Oxygen Delivery 01/04/24 20:30 01/04/24 22:06 01/04/24 22:09 Temperature 97.9 F 97.6 F
[2024-01-05 07:02] LABS: Anisocytosis 1+; Hypochromasia 1+; Platelet Estimate Slightly Increased (Adequate); Schistocytes None Seen
[2024-01-05 09:35] VITALS: BP 112/68; PULSE 73; RESP 18; TEMP 36.1; O2SAT 98
[2024-01-05] MEDS: LACTATED RINGERS 1,000 ML 150 ML IV CONT (09:38)
--- NOTE | 2024-01-05 09:38 | WPDANESEPPF ---
Anes - Initial Pre Proc Eval Procedure: Operation Date: 01/05/24 11:30 Proposed Procedures p Esophagogastroduodenoscopy - Scott Archer MD Date/Time: 01/05/24 09:38 Surgeon: Sb Lanza MD Pre Op Diagnosis: Upper GI bleed Patient Data Age: 48 Gender: F Height: 1.78 m Weight: 107 kg Last Vital Signs Temp 97 F L 01/05/24 09:35 Pulse 73 01/05/24 09:35 Resp 18 01/05/24 09:35 BP 112/68 01/05/24 09:35 Pulse Ox 98 01/05/24 09:35 O2 Del Method Room Air 01/05/24 09:35 Allergies Allergy/AdvReac Type Severity Reaction Status Date / Time amoxicillin Allergy Severe Hives Verified 01/05/24 09:29 Penicillins Allergy Severe Hives Verified 01/05/24 09:29 adhesive Allergy Intermediate BLISTERS/RA Verified 01/05/24 09:29 SH latex Allergy Intermediate Rash Verified 01/05/24 09:29 clindamycin Allergy Mild Swelling Verified 01/05/24 09:29 zolpidem [From Ambien] AdvReac Intermediate sleep Verified 01/05/24 09:29 walking azithromycin AdvReac Mild Nausea and Verified 01/05/24 09:29 Vomiting ibuprofen AdvReac Mild Heartburn Verified 01/05/24 09:29 Home Medications Medication Instructions Recorded Confirmed Type duloxetine 60 mg capsule,delayed 60 mg PO BID #60 caps 06/15/21 01/04/24 Rx release cholecalciferol (vitamin D3) 125 125 mcg PO DAILY 02/08/22 01/04/24 History mcg (5,000 unit) tablet (Vitamin D3) divalproex 500 mg tablet,extended 500 mg PO BID ADHD 02/08/22 01/04/24 History release 24 hr multivitamin 1 tablet PO HS 02/08/22 01/04/24 History gabapentin 600 mg tablet 600 mg PO TID 11/24/22 01/04/24 History ropinirole 1 mg tablet 1 mg PO BID RLS 11/24/22 01/04/24 History azathioprine 100 mg tablet 150 mg PO DAILY 01/23/23 01/04/24 History acetaminophen 500 mg capsule 1,000 mg PO PRN PRN Pain 05/15/23 01/04/24 History aripiprazole 10 mg tablet 10 mg PO DAILY 05/15/23 01/04/24 History docusate sodium 50 mg capsule 50 mg PO TID 05/15/23 01/04/24 History (Stool Softener) famotidine 40 mg tablet 40 mg PO QPM 05/15/23 01/04/24 History sulfasalazine 500 mg 500 mg PO BID 05/15/23 01/04/24 History tablet,delayed release doxepin 10 mg capsule 10 mg PO QHS 08/07/23 01/04/24 History nystatin 100,000 unit/gram topical 1 applic topical TID #30 grams 12/17/23 01/04/24 Rx ointment nystatin 100,000 unit/gram topical 1 applic topical TID #60 grams 12/17/23 01/04/24 Rx powder tirzepatide (weight loss) 10 10 mg (0.5 mL) subcut WEEKLY #2 mL 12/17/23 01/04/24 Rx mg/0.5 mL subcutaneous pen injector (Zepbound) doxycycline hyclate 100 mg tablet 100 mg PO DAILY 10 days #10 tabs 12/29/23 01/04/24 Rx ondansetron 4 mg disintegrating 4 mg PO Q8H PRN nausea and 12/29/23 01/04/24 Rx tablet vomiting #10 tabs alprazolam 0.5 mg tablet 0.5 mg PO DIRECTED #2 tabs 01/02/24 01/04/24 Rx aspirin 81 mg tablet 81 mg PO DAILY 01/04/24 01/04/24 History calcium citrate 150 mg capsule 150 mg PO DAILY 01/04/24 01/04/24 History Laboratory Tests 01/04/24 01/05/24 15:39 05:40 WBC 6.0 K/mm3 5.0 K/mm3 (4.5-10.0) (4.5-10.0) RBC 4.09 L M/mm3 3.55 L M/mm3 (4.2-5.4) (4.2-5.4) Hgb 10.5 L g/dL 9.0 L g/dL (12.0-15.0) (12.0-15.0) Hct 34.3 L % 30.4 L % (37.0-47.0) (37.0-47.0) MCV 83.9 fl 85.6 fl (80-100) (80-100) MCH 25.7 L pg 25.4 L pg (26-34) (26-34) MCHC 30.6 L g/dl 29.6 L g/dl (32-36) (32-36) RDW 17.2 H % 17.2 H % (11.5-14.5) (11.5-14.5) Plt Count 452 H k/mm3 389 H k/mm3 (150-375) (150-375) MPV 10.4 fl 10.2 fl (7.4-10.4) (7.4-10.4) Immature Gran % (Auto) 0.2 % 0.2 % (0-0.5) (0-0.5) Neut % (Auto) 54.4 % 53.0 % (45.5-73.1) (45.5-73.1) Lymph % (Auto) 30.9 % 29.9 % (18.3-44.2) (18.3-44.2) [place] % (Auto) 11.5 H % 13.7 H % (2.6-8.5) (2.6-8.5) Eos % (Auto) 2.7 % 2.8 % (0-4.4) (0-4.4) Baso % (Auto) 0.3 % 0.4 % (0.2-1.2) (0.2-1.2) Lymph # (Au
--- NOTE | 2024-01-05 09:43 | WPDGICN ---
Assessment and Plan Assessment and plan (1) GI (gastrointestinal bleed): Code(s): K92.2 - Gastrointestinal hemorrhage, unspecified Status: Acute Assessment and Plan: will proceed with urgent EGD, assess for ulcer, esophagitis, etc she had gastric bypass ppi avoid nsaid's (2) Coffee ground emesis: Code(s): K92.0 - Hematemesis Status: Acute Assessment and Plan: egd now iv protonix (3) Abdominal pain: Qualifiers: Abdominal location: unspecified location Qualified Code(s): R10.9 - Unspecified abdominal pain Code(s): R10.9 - Unspecified abdominal pain Status: Acute (4) Anemia: Code(s): D64.9 - Anemia, unspecified Status: Acute Assessment and Plan: hgb 9-10 monitor she already had colonoscopy last year (5) Psoriatic arthritis: Onset Date: ~2019 Code(s): L40.50 - Arthropathic psoriasis, unspecified Status: Acute (6) Acid reflux: Code(s): K21.9 - Gastro-esophageal reflux disease without esophagitis Status: Acute GI Consult Note Consult date/time: 01/05/24 09:43 Reason for consult: coffee ground emesis HPI: Corrie Lieberman is a 48 year old female with history of gastric bypass in 2015, depression, fibromyalgia, psoriatic arthritis, endometriosis, GERD, restless leg syndrome, tobacco abuse, marijuana use here with almost a week of intermittent coffee-ground emesis. She was recently seen in the ER on 12/29/2023 and again on 01/02/2024 with similar presentation and negative workup, then saw PCP who told her to come back to the ED because persistent symptoms, last EGD about 1.5 year ago, she is taking tramadol and sometimes ibuprofen because h/o arthritis, also daily omeprazole and famotidine. Also LLQ abdominal pain, last colonoscopy on 03/18/2023 at [facility] she was found to have a small polyp that was removed, and moderate-sized internal hemorrhoids. She had CTA of the abdomen and pelvis which was negative for any acute abdominopelvic process. Labs normal white blood cell count of 6.0, a stable hemoglobin of 10.5, platelet count 452 INR 1.0, PTT 37.5, sodium 136, chloride 96, liver enzymes were normal, lactic acid 0.9. Review of Systems Constitutional: Constitutional: Denies headache(s) and Denies weakness Eyes: Eyes: Denies blurry vision ENT: Reports Normal hearing present, Denies headache(s) and Denies neck pain Cardiovascular: Cardiovascular: Denies chest pain and Denies dyspnea Respiratory: Respiratory: Denies dyspnea Gastrointestinal: Gastrointestinal: Reports no additional gastrointestinal complaints Genitourinary: Genitourinary: Denies dysuria Musculoskeletal: Musculoskeletal: Reports arthralgias Integumentary/Breasts: Skin/Breast: Denies dry skin Neurologic: Reports Normal hearing present, Denies headache(s) and Denies weakness Psychiatric: Psychiatric: Denies anxiety Endocrine: Endocrine: Denies change in body appearance Hematologic/Lymphatic: Hematologic/Lymphatic: Denies easy bleeding Allergic/Immunologic: Allergic/Immunologic: Denies urticaria PMFSH Past Medical History Medical History Acid reflux Anemia Anxiety Arthritis Angeles esophagus Crohn's proctitis She notes it has been labelled on the Crohn's umbrella, but denies actually having Crohn's Depression Depression with anxiety Endometriosis Enteropathic arthritis Fibroids Fibromyalgia (~2008) Hiatal hernia History of fainting Inflammatory bowel disease Insomnia Interstitial cystitis Irritable bowel syndrome Psoriatic arthritis (~2019) Restless leg syndrome Vitamin D deficiency Surgical History Surgical History History of arthroplasty of right knee (05/26/23) History of bladder surgery History of breast surgery (2019) Incision and drainage of right breast abscess.
[2024-01-05 10:26] VITALS: BP 97/59; PULSE 74; RESP 21; O2SAT 96
[2024-01-05 10:36] VITALS: BP 103/55; PULSE 71; RESP 22; O2SAT 95
[2024-01-05 10:46] VITALS: BP 97/55; PULSE 69; RESP 18; O2SAT 96
[2024-01-05] MEDS: DULoxetine HCL 60 MG CAPSULE.DR PO (11:19)
[2024-01-05] MEDS: rOPINIRole HCL 1 MG TABLET PO (11:20)
[2024-01-05] MEDS: CHOLECALCIFEROL 1,000 UNITS TABLET 5000 UNITS PO (11:20)
[2024-01-05] MEDS: GABAPENTIN 300 MG CAPSULE 600 MG PO (11:21)
[2024-01-05] MEDS: ARIPiprazole 10 MG TABLET PO (11:22)
[2024-01-05] MEDS: DIVALPROEX SODIUM ER 500 MG TAB.24H PO (11:22)
--- NOTE | 2024-01-05 17:07 | PM.DS ---
DS: Admitting Diagnosis Discharge Date 01/05/24 Admitting Diagnosis coffee ground emesis abdominal pain acid reflux depression with anxiety morbid obesity DS: Discharge Diagnosis Discharge Diagnosis (1) Coffee ground emesis: Code(s): K92.0 - Hematemesis Status: Acute (2) Abdominal pain: Qualifiers: Abdominal location: unspecified location Qualified Code(s): R10.9 - Unspecified abdominal pain Code(s): R10.9 - Unspecified abdominal pain Status: Acute (3) Acid reflux: Code(s): K21.9 - Gastro-esophageal reflux disease without esophagitis Status: Acute (4) Depression with anxiety: Code(s): F41.8 - Other specified anxiety disorders Status: Acute (5) Morbid obesity: Code(s): E66.01 - Morbid (severe) obesity due to excess calories Status: Acute DS: Summary Hospital Course Reason for hospitalization: coffee ground emesis abdominal pain acid reflux depression with anxiety morbid obesity Hospital Course: 48-year-old female with a significant past medical history of anxiety, Angeles's esophagus, Crohn's proctitis, gastritis,depression, fibromyalgia, psoriatic arthritis, endometriosis, GERD, restless leg syndrome, status post gastric bypass, tobacco abuse, marijuana use who presents to the hospital with complaint of coffee-ground emesis for the last 6 days. Patient does report a history of psoriatic arthritis and has been taking ibuprofen on a regular basis twice a day for pain control. She was seen and evaluated in the ED on 12/29/2023 and 01/02/2024 for similar symptoms. She seen her primary care physician who prompted her to come back to the ED for further evaluation. A CTA abd/pelvis showed no acute abdominoplevis process. GI was consulted for EGD. Patient had an EGD performed on 01/[address] Lugo. Findings were unremarkable. GI recommends to keep using daily omeprazole adn famotidine. They also recommend small meals, but other than that she was cleared from a GI perspective. Prior to discharge patient denied chest pain, shortness of breath, nausea/vomiting and was ambulating throughout her room. Patient discharged home in stable condition. She is to follow up with her PCP in 1 week. Patient is to keep her appointment with rheumatology and GI as scheduled. Status at Discharge Functional status at discharge: independent ambulation Time Spent with Patient Time attestation: Total time spent providing and/or coordinating discharge services: Time spent: Greater than 30 minutes Exam Narrative: AF HR 71 RR 22 SpO2 95 BP 103/55 General: female in no acute respiratory distress who is nontoxic appearing, lying semi recumbent in bed. HEENT: Normocephalic. Atraumatic. Extraocular movement intact. Sclera clear and anicteric. No facial asymmetry. Chest: Lungs are clear to auscultation bilaterally. No wheezes or crackles. CV: Heart was regular rate and rhythm. S1-S2. No murmurs, gallops, or rubs. Abd: Abdomen was soft. Nontender. Nondistended. Positive bowel sounds. No organomegaly or masses. Ext: No clubbing, cyanosis, or edema. 2+ DP pulses bilaterally. Neuro: Patient is alert and oriented. DS: Data Data Completed and Pending Completed studies during hospitalization: Abd/pelvis CTA EGD Labs on day of discharge: Labs from last 24 hours 01/05/24 05:40 WBC 5.0 RBC 3.55 L Hgb 9.0 L Hct 30.4 L MCV 85.6 MCH 25.4 L MCHC 29.6 L RDW 17.2 H Plt Count 389 H MPV 10.2 Immature Gran % (Auto) 0.2 Neut % (Auto) 53.0 Lymph % (Auto) 29.9 Ada % (Auto) 13.7 H Eos % (Auto) 2.8 Baso % (Auto) 0.4 Lymph # (Auto) 1.48 Ada # (Auto) 0.7 H Eos # (Auto) 0.1 Baso # (Auto) 0.0 Abs Immat Gran (auto) 0.01 Absolute Neuts (auto) 2.6 Absolute Nucleated RBC 0.000 Nucleated RBC % 0.0 Platelet Estimate Slightly increased Hypochromasia 1+ Anisocytosis 1+ Schistocytes None seen Sodium 136 L Potassium 4.4 Chloride 99 Carbo
== END 2024-01-05 14:45 | disposition home or self-care (01) ==
LOC: ANHED 15:51 → ANH2MED 22:43
PROVIDERS: Internal Medicine Gastroenterology; Nurse Practitioner Acute Care; Admitting Provider Internal Medicine; Emergency Provider Student in an Organized Health Care Education/Training Program; PCP Family Medicine; Visit Provider Family Medicine
PROC: 0DJ08ZZ Inspection of Upper Intestinal Tract, Via Natural or Artificial Opening Endoscopic (ICD-10-PCS; CPT 43235; principal; 2024-01-05 11:30)
DX: K92.2 Gastrointestinal hemorrhage, unspecified (principal); K92.0 Hematemesis; R10.9 Unspecified abdominal pain; K21.9 Gastro-esophageal reflux disease without esophagitis; Z98.84 Bariatric surgery status; D50.9 Iron deficiency anemia, unspecified; F41.8 Other specified anxiety disorders; K22.70 Barrett's esophagus without dysplasia; E55.9 Vitamin D deficiency, unspecified; Z96.653 Presence of artificial knee joint, bilateral; Z87.891 Personal history of nicotine dependence; K62.89 Other specified diseases of anus and rectum; F12.90 Cannabis use, unspecified, uncomplicated; E66.01 Morbid (severe) obesity due to excess calories; Z68.33 Body mass index [BMI] 33.0-33.9, adult; L40.50 Arthropathic psoriasis, unspecified
CPT/HCPCS: 43235; 36415; 74174; 80053; 83605; 83735; 85025; 85610; 85730; 96361; 96374; 96375; 96376; 99285; A9270; G0378; J1170; J1200; J2270; J2470; J2704; J2765; J7030; J7120; Q9967

== ENCOUNTER 2024-01-15 07:51 | Outpatient (CLI) | payer BC, MEDICARE, SELFPAY ==
--- NOTE | ~2024-01-15 | XR_ITS ---
XR pelvis 1-2V 01/15/2024 08:17 INDICATION: Pelvic pain PROCEDURE: AP pelvis COMPARISON: No prior studies for comparison. FINDINGS: Fracture, dislocation or subluxation is not identified. The soft tissues appear within norm al limits. No foreign bodies are identified. IMPRESSION: 1: NO ACUTE BONE OR JOINT ABNORMALITY IDENTIFIED. Reviewed, dictated and finalized at location B.
--- NOTE | ~2024-01-15 | MR_ITS ---
MRI of the lumbar spine Clinical History: Radiculopathy Technique: Axial T2-weighted images, and sagittal T1-weighted, T2-weighted, and and T2 fat-sat images were acquired. Findings: There is no fracture or subluxation of the lumbar spine. Vertebral bodies maintain normal h eight and alignment. No bone marrow signal abnormality seen. At L1-L2, L2-L3, L3-L4, there are no significant disc bulges or herniations. There are moderate to ad vanced facet joint degenerative changes at these levels. There is probable mild right neural foramina l narrowing at L3-L4. Remaining neural foramina are preserved. No spinal canal stenosis at these leve ls.. At L4-L5, there is moderate degenerative disc narrowing with mild diffuse disc bulge. There is modera te facet arthropathy. No central canal stenosis or neural foraminal narrowing. At L5-S1, there is no significant disc bulge or herniation. There is advanced facet arthropathy. No c entral canal stenosis. Possible mild right neural foraminal narrowing. Paravertebral soft tissues are unremarkable. Impression: Mild degenerative spondylosis, as above. Reviewed, dictated and finalized at location . Impression: Mild degenerative spondylosis, as above.
== END 2024-01-15 07:52 | disposition home or self-care (01) ==
LOC: GOSHIMG 07:53
PROVIDERS: PCP Internal Medicine; Visit Provider Physical Medicine & Rehabilitation Pain Medicine
DX: M47.896 Other spondylosis, lumbar region (principal)
CPT/HCPCS: 72148; 72170

== ENCOUNTER 2024-01-28 08:32 | Outpatient (CLI) | payer BC, MEDICARE, SELFPAY ==
--- NOTE | ~2024-01-28 | MM_ITS ---
EXAMINATION: MM screening rafael BI w to HISTORY: Screening mammogram, family history of breast cancer in her mother. TECHNIQUE: Craniocaudal and mediolateral oblique 3-D tomosynthesis images were obtained and synthetic 2-D images were generated. CAD analysis was submitted and interpreted. COMPARISON: 02/23/2019 BREAST PARENCHYMAL COMPOSITION:Not Dense. There are scattered areas of fibroglandular density. FINDINGS: No suspicious mass, calcification, or architectural distortion are identified in either marques ast to suggest malignancy. There has been no suspicious interval change. IMPRESSION: No mammographic evidence of malignancy. Recommend routine screening mammography in one year. BI-RADS Category 1: Negative Reviewed, dictated and finalized at location .
== END 2024-01-28 08:33 | disposition home or self-care (01) ==
PROVIDERS: PCP Family Medicine; Visit Provider Obstetrics & Gynecology
DX: Z12.31 Encounter for screening mammogram for malignant neoplasm of breast (principal)
CPT/HCPCS: 77063; 77067

== ENCOUNTER 2024-02-05 09:37 | Outpatient (CLI) | payer BC, MEDICARE, SELFPAY ==
[2024-02-05 14:48] LABS: Basophils Percent Auto 0.2 % (0.2-1.2); Eosinophils Absolute Auto 0.1 K/mm3 (0-0.3); Eosinophils Percent Auto 1.9 % (0-4.4); Hematocrit 37.6 % (37.0-47.0); Hemoglobin 11.2 g/dL (12.0-15.0); Immature Granulocyte Absolute 0.01 K/mm3 (0.00-0.031); Immature Granulocyte Percent A 0.2 % (0-0.5); Lymphocytes Absolute Auto 1.67 K/mm3 (0.9-3.2); Lymphocytes Percent Auto 32.4 % (18.3-44.2); Mean Corpuscular HGB Conc 29.8 g/dl (32-36); Mean Corpuscular Hemoglobin 25.5 pg (26-34); Mean Corpuscular Volume 85.6 fl (80-100); Mean Platelet Volume 10.6 fl (7.4-10.4); Monocytes Absolute Auto 0.5 K/mm3 (0.1-0.6); Monocytes Percent Auto 8.7 % (2.6-8.5); Neutrophils Absolute Auto 2.9 K/mm3 (1.3-6.7); Neutrophils Percent Auto 56.6 % (45.5-73.1); Platelet Count Result 558 k/mm3 (150-375); Red Blood Count 4.39 M/mm3 (4.2-5.4); Red Cell Distribution Width 20.7 % (11.5-14.5); White Blood Count 5.2 K/mm3 (4.5-10.0)
[2024-02-05 15:14] LABS: Iron 45 ug/dL (37-170)
[2024-02-05 15:17] LABS: Alanine Aminotransferase 14 U/L (6-35); Albumin Level 4.2 g/dL (3.5-5.1); Alkaline Phosphatase 83 U/L (38-126); Anion Gap 9 mmol/L (4-12); Aspartate Amino Transferase 39 U/L (14-36); Bilirubin,Total 0.3 mg/dL (0.2-1.3); Blood Urea Nitrogen 14 mg/dL (7-17); Calcium 9.2 mg/dL (8.4-10.2); Carbon Dioxide 28 mmol/L (22-30); Chloride 100 mmol/L (98-107); Estimated Glomerular Filt Rate > 60; Glucose 80 mg/dL (65-110); Potassium 4.1 mmol/L (3.4-5.0); Sodium 137 mmol/L (137-145)
[2024-02-05 15:26] LABS: Percent Iron Saturation 20 % (20-50)
[2024-02-05 16:24] LABS: Hypochromasia 1+; Platelet Estimate Increased (Adequate); Schistocytes None Seen
[2024-02-05 16:25] LABS: Anisocytosis 3+
== END 2024-02-05 09:38 | disposition home or self-care (01) ==
PROVIDERS: PCP Family Medicine; Visit Provider Nurse Practitioner Family
DX: D50.9 Iron deficiency anemia, unspecified (principal)
CPT/HCPCS: 36415; 80053; 82607; 82728; 83540; 83550; 85025

== ENCOUNTER 2024-03-01 08:43 | Outpatient (CLI) | payer BC, MEDICARE, SELFPAY ==
--- NOTE | ~2024-03-01 | XR_ITS ---
XR sacrum coccyx min 2V Ordering provider: Morena Sprague DO History: . M53.3 - Sacrococcygeal disorders, not elsewhere classified . Comparison: January 15, 2024 FINDINGS: BONES: Possible lucency in the coccyx area. Otherwise, No definite acute fracture or dislocation. JOINTS: The sacroiliac joint spaces are normal. Pubic symphysitis. Mild Degenerative changes of the spine. SOFT TISSUES: Soft tissues are normal. IMPRESSION: Possible lucency in the coccygeal area. CT evaluation advised. Otherwise, No definite acute osseous a bnormality sacrum and coccyx. Reviewed, dictated and finalized at location A. IMPRESSION: Possible lucency in the coccygeal area. CT evaluation advised. Otherwise, No de finite acute osseous abnormality sacrum and coccyx.
== END 2024-03-01 08:44 | disposition home or self-care (01) ==
LOC: GOSHIMG 08:46
PROVIDERS: PCP Internal Medicine; Visit Provider Family Medicine
DX: M53.3 Sacrococcygeal disorders, not elsewhere classified (principal)
CPT/HCPCS: 72220

== ENCOUNTER 2024-03-08 08:28 | Outpatient (CLI) | payer BC, MEDICARE, SELFPAY ==
[2024-03-08 14:19] LABS: Hematocrit 40.4 % (37.0-47.0); Hemoglobin 11.9 g/dL (12.0-15.0); Mean Corpuscular HGB Conc 29.5 g/dl (32-36); Mean Corpuscular Volume 88.2 fl (80-100); Mean Platelet Volume 11.1 fl (7.4-10.4); Platelet Count Result 388 k/mm3 (150-375); Red Blood Count 4.58 M/mm3 (4.2-5.4); Red Cell Distribution Width 21.7 % (11.5-14.5); White Blood Count 6.9 K/mm3 (4.5-10.0)
[2024-03-08 15:17] LABS: Alanine Aminotransferase 13 U/L (6-35); Albumin Level 3.9 g/dL (3.5-5.1); Alkaline Phosphatase 67 U/L (38-126); Anion Gap 4 mmol/L (4-12); Aspartate Amino Transferase 46 U/L (14-36); Bilirubin,Total 0.3 mg/dL (0.2-1.3); Blood Urea Nitrogen 11 mg/dL (7-17); Carbon Dioxide 32 mmol/L (22-30); Chloride 101 mmol/L (98-107); Cholesterol 213 mg/dL (0-200); Estimated Glomerular Filt Rate > 60; Glucose 68 mg/dL (65-110); HDL Direct 71 mg/dL; Potassium 4.5 mmol/L (3.4-5.0); Sodium 137 mmol/L (137-145); Triglycerides 64 mg/dL (<150)
[2024-03-08 15:28] LABS: LDL Cholesterol Direct 95 mg/dL
== END 2024-03-08 08:29 | disposition home or self-care (01) ==
PROVIDERS: PCP Internal Medicine; Visit Provider Nurse Practitioner
DX: D64.9 Anemia, unspecified (principal); E78.5 Hyperlipidemia, unspecified
CPT/HCPCS: 36415; 80053; 80061; 85027

== ENCOUNTER 2024-03-09 15:32 | Outpatient (CLI) | payer BC, MEDICARE, SELFPAY ==
[2024-03-09 15:48] LABS: Basophils Percent Auto 0.3 % (0.2-1.2); Eosinophils Absolute Auto 0.2 K/mm3 (0-0.3); Eosinophils Percent Auto 2.9 % (0-4.4); Hematocrit 38.6 % (37.0-47.0); Hemoglobin 11.9 g/dL (12.0-15.0); Immature Granulocyte Absolute 0.02 K/mm3 (0.00-0.031); Immature Granulocyte Percent A 0.3 % (0-0.5); Lymphocytes Absolute Auto 2.81 K/mm3 (0.9-3.2); Lymphocytes Percent Auto 40.3 % (18.3-44.2); Mean Corpuscular HGB Conc 30.8 g/dl (32-36); Mean Corpuscular Hemoglobin 26.2 pg (26-34); Mean Corpuscular Volume 84.8 fl (80-100); Monocytes Absolute Auto 0.7 K/mm3 (0.1-0.6); Monocytes Percent Auto 10.2 % (2.6-8.5); Neutrophils Absolute Auto 3.2 K/mm3 (1.3-6.7); Platelet Count Result 388 k/mm3 (150-375); Red Blood Count 4.55 M/mm3 (4.2-5.4); Red Cell Distribution Width 20.6 % (11.5-14.5)
[2024-03-09 16:46] LABS: Iron 41 ug/dL (37-170)
[2024-03-09 16:49] LABS: Alanine Aminotransferase 13 U/L (6-35); Albumin Level 4.1 g/dL (3.5-5.1); Alkaline Phosphatase 77 U/L (38-126); Anion Gap 8 mmol/L (4-12); Aspartate Amino Transferase 26 U/L (14-36); Bilirubin,Total 0.3 mg/dL (0.2-1.3); Blood Urea Nitrogen 9 mg/dL (7-17); Calcium 9.3 mg/dL (8.4-10.2); Carbon Dioxide 30 mmol/L (22-30); Chloride 97 mmol/L (98-107); Estimated Glomerular Filt Rate > 60; Glucose 84 mg/dL (65-110); Sodium 135 mmol/L (137-145)
[2024-03-09 16:57] LABS: Percent Iron Saturation 16 % (20-50)
[2024-03-09 17:42] LABS: Vitamin B12 > 1000.0 pg/mL (239-931)
[2024-03-09 19:54] LABS: Folic Acid > 20.0 ng/mL (2.76->20)
== END 2024-03-09 15:33 | disposition home or self-care (01) ==
PROVIDERS: PCP Internal Medicine; Visit Provider Internal Medicine Hematology & Oncology
DX: D50.9 Iron deficiency anemia, unspecified (principal)
CPT/HCPCS: 36415; 80053; 82607; 82728; 82746; 83540; 83550; 85025

== ENCOUNTER 2024-03-10 09:01 | Outpatient (CLI) | payer BC, MEDICARE, SELFPAY ==
--- NOTE | ~2024-03-10 | CT_ITS ---
EXAMINATION: CT pelvis wo con DATE: 03/10/2024 09:17 INDICATION: Sacrococcygeal disorder. TECHNIQUE: Computed tomography (CT) of the pelvis was performed without intravenous contrast. Automat ed exposure control and iterative reconstruction technique were employed. The dose-length product was 660.43 mGy-cm. COMPARISON: Sacrum and coccyx radiographs 03/01/2024, CT abdomen and pelvis 01/04/2024 FINDINGS: There are no dilated loops of bowel. There are no pathologically enlarged lymph nodes. Ther e is no free intraperitoneal fluid. Osteitis pubis is noted. There is mild osteoarthritis of the hips . There is mild lumbar spondylosis. There is severe osteoarthritis of the sacroiliac joints. IMPRESSION: 1. Polyarticular osteoarthritis. Reviewed, dictated and finalized at location B.
== END 2024-03-10 09:02 | disposition home or self-care (01) ==
LOC: GOSHIMG 09:02
PROVIDERS: PCP Family Medicine; Visit Provider Family Medicine
DX: M53.3 Sacrococcygeal disorders, not elsewhere classified (principal); R93.89 Abnormal findings on diagnostic imaging of other specified body structures
CPT/HCPCS: 72192

== ENCOUNTER 2024-03-18 07:57 | Emergency (ER) | payer BC, MEDICARE, SELFPAY ==
--- NOTE | ~2024-03-18 | XR_ITS ---
XR chest 1V portable 03/18/2024 08:50 Indication: Shortness of breath Procedure: AP portable chest Comparison: 11/11/2023 Findings: Patchy right-sided airspace disease. Blunting right lateral costophrenic recess consistent with small effusion. Cardiomegaly. Left lung clear. Impression: 1: Patchy right-sided airspace disease, most confluent in the right upper lobe, pneumonia versus atel ectasis. 2: Small right pleural effusion. Reviewed, dictated and finalized at location [] S ENGINEER Impression: 1: Patchy right-sided airspace disease, most confluent in the right upper lobe, pneumonia versus atelectasis. 2: Small right pleural effusion.
[2024-03-18 08:03] VITALS: BP 125/81; PULSE 106; RESP 20; TEMP 36.6; O2SAT 99
[2024-03-18 08:06] VITALS: RESP 22
[2024-03-18] MEDS: ONDANSETRON HCL ODT 4 MG TABLET PO (08:09)
--- NOTE | 2024-03-18 08:20 | ED_ITS ---
HPI - Fever General Chief Complaint: Fever Stated Complaint: vomiting, tachycardia, fever Time Seen by Provider: 03/18/24 08:00 History of Present Illness HPI Narrative: For the last 2 days patient has had a fever, palpitations, and productive cough. Son at home also sick with pneumonia. No abdominal pain. Trying to take Tylenol and Dayquil home without much improvement Related Data Home Medications Medication Instructions Recorded Confirmed cholecalciferol (vitamin D3) 125 125 mcg PO DAILY 02/08/22 03/17/24 mcg (5,000 unit) tablet (Vitamin D3) divalproex 500 mg tablet,extended 500 mg PO BID ADHD 02/08/22 03/17/24 release 24 hr multivitamin 1 tablet PO HS 02/08/22 03/17/24 gabapentin 600 mg tablet 600 mg PO TID 11/24/22 03/17/24 ropinirole 1 mg tablet 1 mg PO BID RLS 11/24/22 03/17/24 azathioprine 100 mg tablet 150 mg PO DAILY 01/23/23 03/17/24 acetaminophen 500 mg capsule 1,000 mg PO PRN PRN Pain 05/15/23 03/17/24 aripiprazole 10 mg tablet 10 mg PO DAILY 05/15/23 03/17/24 docusate sodium 50 mg capsule 50 mg PO TID 05/15/23 03/17/24 (Stool Softener) famotidine 40 mg tablet 40 mg PO QPM 05/15/23 03/17/24 sulfasalazine 500 mg 500 mg PO BID 05/15/23 03/17/24 tablet,delayed release doxepin 10 mg capsule 10 mg PO QHS 08/07/23 03/17/24 aspirin 81 mg tablet 81 mg PO DAILY 01/04/24 03/17/24 calcium citrate 150 mg capsule 150 mg PO DAILY 01/04/24 03/17/24 Allergies Allergy/AdvReac Type Severity Reaction Status Date / Time amoxicillin Allergy Severe Hives Verified 03/18/24 08:07 Penicillins Allergy Severe Hives Verified 03/18/24 08:07 adhesive Allergy Intermediate BLISTERS/RA Verified 03/18/24 08:07 SH latex Allergy Intermediate Rash Verified 03/18/24 08:07 clindamycin Allergy Mild Swelling Verified 03/18/24 08:07 zolpidem [From Ambien] AdvReac Intermediate sleep Verified 03/18/24 08:07 walking azithromycin AdvReac Mild Nausea and Verified 03/18/24 08:07 Vomiting ibuprofen AdvReac Mild Heartburn Verified 03/18/24 08:07 Review of Systems Review of Systems: All systems reviewed & are unremarkable except as noted in HPI and below PMFSH Past Medical History Medical History Acid reflux Anemia Anxiety Arthritis Angeles esophagus Crohn's proctitis She notes it has been labelled on the Crohn's umbrella, but denies actually having Crohn's Depression Depression with anxiety Endometriosis Enteropathic arthritis Fibroids Fibromyalgia (~2008) Hiatal hernia History of fainting Inflammatory bowel disease Insomnia Interstitial cystitis Irritable bowel syndrome Psoriatic arthritis (~2019) Restless leg syndrome Vitamin D deficiency Surgical History Surgical History History of arthroplasty of right knee (05/26/23) History of bladder surgery History of breast surgery (2018) Incision and drainage of right breast abscess. History of cholecystectomy (2004) History of dilation and curettage 2008 - 2009 multiple History of endometrial ablation History of gastric bypass (2014) History of knee replacement procedure of right knee 05/26/23 History of left knee replacement (02/2020) Per Dr. Espinoza History of loop recorder (02/2022) For recurrent syncope/near-syncope. History of parotid gland excision (2010) Benign tumor. History of partial hysterectomy History of repair of rectocele (2018) History of thyroid cyst (1993) History of wisdom tooth extraction Family History Family History Father Hypertension Family history of elevated blood lipids Family history of arthritis Mother Hypertension Family history of elevated blood lipids Family history of osteoporosis Family history of malignant neoplasm of breast Grandparent Family history of osteoporosis Hypertension Family history of Alzheimer's disease Family history of emphysema Family history of malignant neoplasm of ovary Sibling Hypertension Family history of arthritis Other Alcoholism Asthma Social History Social History (Updated 01/13/24 @ 09:23 by SANIA More) Social History: Surrogate medical decision maker: Valerio Lieberman, spouse. Code status: Full code. Smoking packs per day: 1 Smoking cigarettes per day: 20.0 Years smoked: 5 Smoking pack-years: 5.00 Smoking status: Former smoker Second hand tobacco smoke exposure: No Smoking end date: 05/12/00 Additional smoking assessment comments: patient smokes marijuana most days for pain control Alcohol intake: never Substance use: current Substance use type: marijuana Other substance usage details: MOODY ELAM Last use: 01/04/24 Do You Feel Safe in your Home?: Yes Lack of Transportation: YES Lack of Food: Never True Current Housing: I Do Not Have Housing Concerned About Future Housing: No Difficulty Paying Gas/Electric Bills: No Difficulty Paying for Meds: No Currently Unemployed: No Education: Bachelor's Degree Difficulty w/ Childcare or Family Care: No Living arrangements: with family Additional living arrangements comments: Lives with spouse and children. 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 Gender identity (if verbalized by the patient): Female Spiritual care concerns: No Exam Narrative: EXAMINATION OF ORGAN SYSTEMS/BODY AREAS: Constitutional: Vital signs per nursing GENERAL:[No acute distress, non-toxic appearing.] HEAD: Normal with no signs of head trauma. EYES: EOMI, conjunctiva normal ENT: Hearing grossly intact LUNGS: Nonlabored breathing. Slightly diminished lung sounds on right HEART: [Regular rate and rhythm] ABD: [Soft], [nontender to palpation] EXT: Normal range of motion SKIN: [No rashes or lesions.] NEURO: [Alert and oriented x 3. No gross focal sensory or strength deficits.] PSYCH: Normal affect Course Vital Signs Vital signs: Vital Signs Temperature 98 F 03/18/24 08:03 Pulse Rate 106 H 03/18/24 08:03 Respiratory Rate 20 03/18/24 08:03 Blood Pressure 125/81 03/18/24 08:03 Pulse Oximetry 99 03/18/24 08:03 Oxygen Delivery Room Air 03/18/24 08:03 Temperature 98 F 03/18/24 08:03 Pulse Rate 88 03/18/24 08:38 Respiratory Rate 18 03/18/24 08:38 Blood Pressure 97/58 L 03/18/24 08:38 Pulse Oximetry 95 03/18/24 08:38 Oxygen Delivery Room Air 03/18/24 08:03 MDM - Fever MDM Narrative Medical decision making narrative: 1) Differential diagnosis: Pneumonia, viral syndrome 2) Comorbidities: Rheumatoid arthritis on immunosuppression 3) External notes reviewed: PCP note 4) History sources independently obtained from: Patient, family member 5) Discussion of management with: [] 6) Independent interpretation of: Chest x-ray, no consolidation to the right upper lung 7) Diagnostic tests or therapies considered but not ordered: [] 8) Social determinants of health: [] 9) Shared decision making: [] Patient presenting with URI symptoms, swabs are negative, chest x-ray does show findings concerning for possible pneumonia especially given her symptoms and her immunosuppressed state I did feel she would benefit from antibiotic treatment, with close follow-up to PCP and strict return precautions. Patient agreeable to this plan. Vital signs stable. Lab Data Labs: Lab Results 03/18/24 Range/Units 08:08 Influenza A (RT-PCR) Negative (Negative) Influenza B (RT-PCR) Negative (Negative) RSV (RT-PCR) Negative (Negative) SARS-CoV-2 RNA (RT-PCR) Negative (Negative) Discharge Plan Discharge Clinical Impression: Pneumonia Patient Disposition: Home, Self-Care Condition: Stable Instructions: Pneumonia (ED) Additional Instructions: Please follow up with your doctor; please return for any further issues especially if he have more shortness of breath, nausea vomiting, or anything else concerning. Prescriptions: New doxycycline hyclate 100 mg capsule 100 mg PO Q12H 5 Days Qty: 10 0RF acetaminophen [Tylenol Extra Strength] 500 mg tablet 1,000 mg PO Q6H PRN (Reason: pain) Qty: 50 0RF albuterol sulfate 90 mcg/actuation HFA aerosol inhaler 2 puff inhalation QID PRN (Reason: shortness of breath or wheezing) Qty: 8.5 0RF fluticasone propionate [Allergy Relief (fluticasone)] 50 mcg/actuation spray,suspension 1 spray intranasal DAILY Qty: 16 0RF Rx Instructions: administer into each nostril cefdinir 300 mg capsule 300 mg PO Q12H Qty: 10 0RF No Action gabapentin 600 mg tablet 600 mg PO TID ropinirole 1 mg tablet 1 mg PO BID Rx Instructions: Pt takes one tablet with dinner and one tablet at HS doxepin 10 mg capsule 10 mg PO QHS azathioprine 100 mg tablet 150 mg PO DAILY nystatin 100,000 unit/gram ointment 1 applic topical TID Qty: 30 1RF Rx Instructions: apply to rash under abdominal folds nystatin 100,000 unit/gram powder 1 applic topical TID Qty: 60 1RF Rx Instructions: Apply to abdominal rash; patient has not used powder r/t topical ointment hydrocodone-acetaminophen 5-325 mg tablet 1 tablet PO Q6H PRN (Reason: pain) Qty: 28 0RF doxycycline hyclate 100 mg tablet 100 mg PO BID Qty: 20 0RF albuterol sulfate 90 mcg/actuation HFA aerosol inhaler See Rx Instructions inhalation Q4H PRN (Reason: shortness of breath or wheezing) Qty: 8.5 3RF Rx Instructions: 1-2 puffs inhaled every 4 hours PRN; multivitamin Tablet 1 tablet PO HS divalproex 500 mg Tablet Extended Release 24 Hr 500 mg PO BID cholecalciferol (vitamin D3) [Vitamin D3] 125 mcg (5,000 unit) Tablet 125 mcg PO DAILY aripiprazole 10 mg tablet 10 mg PO DAILY sulfasalazine 500 mg tablet,delayed release (DR/EC) 500 mg PO BID famotidine 40 mg tablet 40 mg PO QPM Stool Softener 50 mg Capsule 50 mg PO TID acetaminophen 500 mg Capsule 1,000 mg PO PRN PRN (Reason: Pain) ondansetron 4 mg tablet,disintegrating 4 mg PO Q8H PRN (Reason: nausea and vomiting) Qty: 10 0RF calcium citrate 150 mg Capsule 150 mg PO DAILY aspirin 81 mg Tablet 81 mg PO DAILY duloxetine 60 mg capsule,delayed release(DR/EC) 60 mg PO BID Qty: 60 7RF alprazolam 0.5 mg tablet 0.5 mg PO DIRECTED Qty: 2 0RF Rx Instructions: Take 1 tab 30 minutes before procedure; MRI scheduled for December Zepbound 15 mg/0.5 mL pen injector 15 mg subcut WEEKLY Qty: 6 1RF Follow-up/Referrals: Morena Sprague DO [Primary Care Provider] -
[2024-03-18 08:38] VITALS: BP 97/58; PULSE 88; RESP 18; O2SAT 95
[2024-03-18 08:49] LABS: Influenza A QL RT-PCR Negative (Negative); Influenza B QL RT-PCR Negative (Negative); RSV RNA, RT-PCR Negative (Negative); SARS-CoV-2 RNA PCR Negative (Negative)
[2024-03-18 09:18] VITALS: BP 122/87; PULSE 90; RESP 18; O2SAT 100
--- NOTE | 2024-03-18 09:18 | PC.NURSE ---
pharmacy called about Omnicef medication for patient
[2024-03-18] MEDS: CEFDINIR 300 MG CAPSULE PO (09:24)
[2024-03-18] MEDS: DOXYCYCLINE HYCLATE 100 MG TABLET PO (09:24)
== END 2024-03-18 09:30 | disposition home or self-care (01) ==
PROVIDERS: Emergency Provider Emergency Medicine; PCP Family Medicine
DX: J18.9 Pneumonia, unspecified organism (principal); Z20.822 Contact with and (suspected) exposure to COVID-19; E55.9 Vitamin D deficiency, unspecified; N80.9 Endometriosis, unspecified; M06.9 Rheumatoid arthritis, unspecified; M19.90 Unspecified osteoarthritis, unspecified site; K22.70 Barrett's esophagus without dysplasia; K21.9 Gastro-esophageal reflux disease without esophagitis; K58.9 Irritable bowel syndrome, unspecified; L40.50 Arthropathic psoriasis, unspecified; G25.81 Restless legs syndrome; F41.8 Other specified anxiety disorders; Z98.84 Bariatric surgery status; Z96.653 Presence of artificial knee joint, bilateral; Z87.891 Personal history of nicotine dependence; Z86.2 Personal history of diseases of the blood and blood-forming organs and certain disorders involving the immune mechanism; Z90.49 Acquired absence of other specified parts of digestive tract; Z90.711 Acquired absence of uterus with remaining cervical stump; Z79.899 Other long term (current) drug therapy; Z79.82 Long term (current) use of aspirin; Z79.85 Long-term (current) use of injectable non-insulin antidiabetic drugs; Z79.60 Long term (current) use of unspecified immunomodulators and immunosuppressants
CPT/HCPCS: 71045; 87637; 99283; A9270

== ENCOUNTER 2024-04-12 08:24 | Outpatient (CLI) | payer BC, MEDICARE, SELFPAY ==
[2024-04-12 14:11] LABS: Basophils Percent Auto 0.3 % (0.2-1.2); Eosinophils Absolute Auto 0.2 K/mm3 (0-0.3); Hematocrit 39.3 % (37.0-47.0); Hemoglobin 11.6 g/dL (12.0-15.0); Immature Granulocyte Absolute 0.02 K/mm3 (0.00-0.031); Immature Granulocyte Percent A 0.3 % (0-0.5); Lymphocytes Absolute Auto 2.17 K/mm3 (0.9-3.2); Mean Corpuscular HGB Conc 29.5 g/dl (32-36); Mean Corpuscular Hemoglobin 27.5 pg (26-34); Mean Corpuscular Volume 93.1 fl (80-100); Mean Platelet Volume 11.8 fl (7.4-10.4); Monocytes Absolute Auto 0.8 K/mm3 (0.1-0.6); Monocytes Percent Auto 10.8 % (2.6-8.5); Neutrophils Absolute Auto 3.8 K/mm3 (1.3-6.7); Neutrophils Percent Auto 54.6 % (45.5-73.1); Platelet Count Result 304 k/mm3 (150-375); Red Blood Count 4.22 M/mm3 (4.2-5.4); Red Cell Distribution Width 18.6 % (11.5-14.5)
[2024-04-12 14:22] LABS: LDL Cholesterol Direct 83 mg/dL
[2024-04-12 14:32] LABS: Platelet Estimate Adequate (Adequate)
[2024-04-12 14:33] LABS: Hypochromasia 1+; Schistocytes None Seen
[2024-04-12 15:22] LABS: Alanine Aminotransferase 19 U/L (6-35); Alkaline Phosphatase 66 U/L (38-126); Anion Gap 1 mmol/L (4-12); Aspartate Amino Transferase 44 U/L (14-36); Bilirubin,Total 0.4 mg/dL (0.2-1.3); Blood Urea Nitrogen 21 mg/dL (7-17); Calcium 8.8 mg/dL (8.4-10.2); Carbon Dioxide 34 mmol/L (22-30); Chloride 104 mmol/L (98-107); Cholesterol 206 mg/dL (0-200); Estimated Glomerular Filt Rate > 60; Glucose 59 mg/dL (65-110); HDL Direct 80 mg/dL; Potassium 4.2 mmol/L (3.4-5.0); Sodium 139 mmol/L (137-145); Triglycerides 56 mg/dL (<150)
== END 2024-04-12 08:25 | disposition home or self-care (01) ==
LOC: ANHGOSHLAB 08:27
PROVIDERS: PCP Family Medicine; Visit Provider Nurse Practitioner
DX: D64.9 Anemia, unspecified (principal); E78.5 Hyperlipidemia, unspecified
CPT/HCPCS: 36415; 80053; 80061; 85025

== ENCOUNTER 2024-04-13 13:59 | Outpatient (CLI) | payer BC, MEDICARE, SELFPAY ==
[2024-04-13 17:36] LABS: Iron 46 ug/dL (37-170)
[2024-04-13 17:53] LABS: Percent Iron Saturation 16 % (20-50)
[2024-04-13 18:14] LABS: Folic Acid 17.7 ng/mL (2.76->20); Vitamin B12 > 1000.0 pg/mL (239-931)
[2024-04-14 08:08] LABS: Protein, Total 6.9 g/dL (6.1-8.1)
== END 2024-04-13 14:00 | disposition home or self-care (01) ==
LOC: ANHLAB 14:02
PROVIDERS: PCP Family Medicine; Visit Provider Internal Medicine Hematology & Oncology
DX: D64.9 Anemia, unspecified (principal)
CPT/HCPCS: 36415; 82607; 82728; 82746; 83540; 83550; 84155; 84165

== ENCOUNTER 2024-04-16 12:49 | Outpatient (CLI) | payer BC, MEDICARE, SELFPAY ==
--- NOTE | ~2024-04-16 | XR_ITS ---
XR ribs LT 2V w CXR 2V Ordering provider: Morena Sprague DO History: . fall 1 week ago left rib pain hx of pna . Comparison: None. FINDINGS: BONES: No acute rib fracture. MEDIASTINUM: The cardiac silhouette is not enlarged. Device projected over the heart. LUNGS: No infiltrates, effusions or pneumothorax. Fibrotic changes in the right mid and lower zone. OTHER: No free air under the diaphragm. IMPRESSION: 1. No acute osseous abnormality left ribs and chest. 2. No acute cardiopulmonary findings. Reviewed, dictated and finalized at location A. OYMENT ENGINEER
--- NOTE | ~2024-04-16 | XR_ITS ---
Left ankle Technique: AP, oblique, and lateral views were obtained. Clinical History: Pain Findings: No acute fracture or dislocation is seen. Osseous alignment is anatomic. Ankle mortise and other visualized joint spaces are preserved. Soft tissues are otherwise unremarkable. Impression: Unremarkable left ankle. Reviewed, dictated and finalized at location . M SHOVEL OILER Impression: Unremarkable left ankle.
== END 2024-04-16 12:50 | disposition home or self-care (01) ==
PROVIDERS: PCP Family Medicine; Visit Provider Family Medicine
DX: R07.81 Pleurodynia (principal); M25.572 Pain in left ankle and joints of left foot; Z87.01 Personal history of pneumonia (recurrent)
CPT/HCPCS: 71046; 71100; 73610

== ENCOUNTER 2024-05-10 08:51 | Outpatient (CLI) | payer BC, MEDICARE, SELFPAY ==
--- NOTE | ~2024-05-10 | MR_ITS ---
EXAMINATION: MR shoulder LT wo con DATE: 05/10/2024 09:34 INDICATION: Left shoulder pain TECHNIQUE: Magnetic resonance imaging (MRI) of the left shoulder was performed without intravenous co ntrast. Sequences included axial PD-weighted FS FSE, coronal oblique PD-weighted FS FSE, coronal obli que T2-weighted FS FSE, sagittal PD-weighted FS FSE, and sagittal T1-weighted SE. COMPARISON: None. FINDINGS: Coracoacromial arch: The acromion undersurface is curved in morphology (type II). The coracoacromial ligament is normal. M ild acromioclavicular osteoarthritis. Rotator cuff: Mild supraspinatus tendinopathy with shallow very small partial-thickness articular sided tear at the central insertion of the supraspinatus tendon which measures 3 mm AP and less than one third of the tendon thickness. The infraspinatus, teres minor and subscapularis tendons are normal. Normal rotator cuff muscle bulk and signal. Biceps tendon, glenoid labrum and glenohumeral cartilage: Long head of the biceps tendon is normal. The posterior inferior glenoid labrum is diminutive but wit hout discrete tear. Glenohumeral cartilage is normal. Fluid: Physiologic amount of fluid in the glenohumeral joint and biceps tendon sheath. No loose osteochondr al bodies. No abnormal fluid in the subacromial/subdeltoid bursa to suggest bursitis. Bones: Normal marrow signal with no edema, fracture or abnormal marrow replacing process. Mild cystic change along the superior facet of the greater tuberosity likely related to chronic supraspinatus tendon di sease. IMPRESSION: 1. Supraspinatus tendinopathy with shallow very small partial-thickness articular sided tear at the s uperior facet footplate. Line 2. Mild acromioclavicular osteoarthritis. Reviewed, dictated and finalized at location B. RAL ACCOUNTING MANAGER IMPRESSION: 1. Supraspinatus tendinopathy with shallow very small partial-thickness articul ar sided tear at the superior facet footplate. Line 2. Mild acromioclavicular osteoarthritis.
== END 2024-05-10 08:52 | disposition home or self-care (01) ==
LOC: GOSHIMG 08:51
PROVIDERS: PCP Physician Assistant; Visit Provider Physician Assistant
DX: M19.012 Primary osteoarthritis, left shoulder (principal); M75.22 Bicipital tendinitis, left shoulder; M75.52 Bursitis of left shoulder; M75.82 Other shoulder lesions, left shoulder; M25.512 Pain in left shoulder; G89.29 Other chronic pain
CPT/HCPCS: 73221

== ENCOUNTER 2024-07-12 05:11 | Emergency (ER) | payer BC, MEDICARE, SELFPAY ==
[2024-07-12 05:18] VITALS: BP 124/82; PULSE 120; RESP 18; TEMP 36.4; O2SAT 100
[2024-07-12 05:28] VITALS: BP 115/80; BP 116/83; PULSE 101; PULSE 121
[2024-07-12 05:29] VITALS: BP 110/80; PULSE 126
[2024-07-12 05:34] LABS: Basophils Percent Auto 0.3 % (0.2-1.2); Eosinophils Absolute Auto 0.3 K/mm3 (0-0.3); Eosinophils Percent Auto 2.8 % (0-4.4); Hematocrit 41.6 % (37.0-47.0); Hemoglobin 13.1 g/dL (12.0-15.0); Immature Granulocyte Absolute 0.03 K/mm3 (0.00-0.031); Immature Granulocyte Percent A 0.3 % (0-0.5); Lymphocytes Percent Auto 32.7 % (18.3-44.2); Mean Corpuscular HGB Conc 31.5 g/dl (32-36); Mean Corpuscular Hemoglobin 27.2 pg (26-34); Mean Corpuscular Volume 86.5 fl (80-100); Mean Platelet Volume 10.7 fl (7.4-10.4); Monocytes Absolute Auto 1.1 K/mm3 (0.1-0.6); Neutrophils Absolute Auto 4.9 K/mm3 (1.3-6.7); Neutrophils Percent Auto 51.9 % (45.5-73.1); Platelet Count Result 369 k/mm3 (150-375); Red Blood Count 4.81 M/mm3 (4.2-5.4); White Blood Count 9.5 K/mm3 (4.5-10.0)
[2024-07-12 05:47] LABS: Alanine Aminotransferase 18 U/L (6-35); Albumin Level 4.3 g/dL (3.5-5.1); Alkaline Phosphatase 78 U/L (38-126); Anion Gap 12 mmol/L (4-12); Aspartate Amino Transferase 29 U/L (14-36); Bilirubin,Total 0.5 mg/dL (0.2-1.3); Blood Urea Nitrogen 18 mg/dL (7-17); Calcium 9.3 mg/dL (8.4-10.2); Carbon Dioxide 26 mmol/L (22-30); Chloride 100 mmol/L (98-107); Estimated CRCL calculation 132 ml/min; Estimated Glomerular Filt Rate > 60; Glucose 99 mg/dL (65-110); Potassium 3.8 mmol/L (3.4-5.0); Sodium 138 mmol/L (137-145)
[2024-07-12 07:00] VITALS: BP 111/74; PULSE 89; RESP 16; TEMP 36.6; O2SAT 95
[2024-07-12] MEDS: MECLIZINE HCL 25 MG TABLET PO (08:08)
[2024-07-12] MEDS: KETOROLAC 30 MG/ML VIAL (*BKC) IV PUSH (08:09)
[2024-07-12] MEDS: ONDANSETRON INJ 4 MG/2 ML VIAL IV PUSH (08:09)
--- NOTE | 2024-07-12 08:26 | ED.SYNCOPE ---
HPI - Syncope General Chief Complaint: Syncope Stated Complaint: I keep passing out, hit head Time Seen by Provider: 07/12/24 07:04 History of Present Illness HPI narrative: Patient is a 49-year-old female who presents ER with reports of syncope. Ongoing for 2 years but worse over last 3-4 days. Reports 30 episodes of near-syncope with at least 3 where she has been unconscious. Reports she did strike her head. Mild headache. Reports she gets spinning dizziness and can occur when she goes from sitting to standing or when rolling over. Patient has had a tilt-table test in the past. She has a heart monitor that has shown no events. No fevers or blocks. No focal weakness or numbness in arm or leg. Most recent fall patient developed pain to her left shoulder and left elbow. Related Data Home Medications ?Medication ?Instructions ?Recorded ?Confirmed ?Last Taken ?Type cholecalciferol (vitamin D3) 125 125 mcg PO DAILY 02/08/22 04/21/24 01/04/24 08:00 History mcg (5,000 unit) tablet (Vitamin D3) divalproex 500 mg tablet,extended 500 mg PO BID ADHD 02/08/22 04/21/24 01/04/24 08:00 History release 24 hr multivitamin 1 tablet PO HS 02/08/22 04/21/24 01/03/24 21:00 History ropinirole 1 mg tablet 1 mg PO BID RLS 11/24/22 04/21/24 01/03/24 21:00 History azathioprine 100 mg tablet 150 mg PO DAILY 01/23/23 04/21/24 01/04/24 08:00 History aripiprazole 10 mg tablet 10 mg PO DAILY 05/15/23 04/21/24 01/04/24 08:00 History docusate sodium 50 mg capsule 50 mg PO TID 05/15/23 04/21/24 01/04/24 08:00 History (Stool Softener) famotidine 40 mg tablet 40 mg PO QPM 05/15/23 04/21/24 01/03/24 21:00 History sulfasalazine 500 mg 500 mg PO BID 05/15/23 04/21/24 01/04/24 08:00 History tablet,delayed release doxepin 10 mg capsule 10 mg PO QHS 08/07/23 04/21/24 01/03/24 21:00 History aspirin 81 mg tablet 81 mg PO DAILY 01/04/24 04/21/24 01/04/24 08:00 History calcium citrate 150 mg capsule 150 mg PO DAILY 01/04/24 04/21/24 01/04/24 08:00 History tramadol 50 mg tablet 100 mg PO Q8H PRN 04/21/24 04/21/24 Unknown History Allergies Allergy/AdvReac Type Severity Reaction Status Date / Time amoxicillin Allergy Severe Hives Verified 07/12/24 05:15 Penicillins Allergy Severe Hives Verified 07/12/24 05:15 adhesive Allergy Intermediate BLISTERS/RA Verified 07/12/24 05:15 SH latex Allergy Intermediate Rash Verified 07/12/24 05:15 clindamycin Allergy Mild Swelling Verified 07/12/24 05:15 zolpidem (From Ambien) AdvReac Intermediate sleep Verified 07/12/24 05:15 walking azithromycin AdvReac Mild Nausea and Verified 07/12/24 05:15 Vomiting ibuprofen AdvReac Mild Heartburn Verified 07/12/24 05:15 Review of Systems Review of Systems: All systems reviewed & are unremarkable except as noted in HPI and below Constitutional: Constitutional: Reports no additional constitutional complaints Cardiovascular: Cardiovascular: Reports no additional cardiovascular complaints Respiratory: Respiratory: Reports no additional respiratory complaints Musculoskeletal: Musculoskeletal: Reports no additional musculoskeletal complaints Neurologic: Reports system reviewed and no additional complaints, except as documented PMF Past Medical History Medical History History of fainting Inflammatory bowel disease Depression with anxiety Irritable bowel syndrome [place] esophagus Acid reflux Psoriatic arthritis (~2019) Restless leg syndrome Insomnia Enteropathic arthritis Anxiety Vitamin D deficiency Anemia Depression Arthritis Fibromyalgia (~2008) Fibroids Endometriosis Hiatal hernia Crohn's proctitis She notes it has been labelled on the Crohn's umbrella, but denies actually having Crohn's Interstitial cystitis Surgical History Surgical History History of arthroplasty of right knee (05/26/23) History of loop recorder (02/2022) For recurrent syncope/near-syncope. History of thyroid cyst (1993) History of partial hysterectomy History of endometrial ablation History of knee replacement procedure of right knee 05/26/23 History of wisdom tooth extraction History of bladder surgery History of left knee replacement (02/2020) Per Dr. Espinoza History of breast surgery (2019) Incision and drainage of right breast abscess. History of parotid gland excision (2010) Benign tumor. History of cholecystectomy (2004) History of dilation and curettage 2008 - 2009 multiple History of repair of rectocele (2018) History of gastric bypass (2014) Family History Family History Father Hypertension Family history of elevated blood lipids Family history of arthritis Mother Hypertension Family history of elevated blood lipids Family history of osteoporosis Family history of malignant neoplasm of breast Grandparent Family history of osteoporosis Hypertension Family history of Alzheimer's disease Family history of emphysema Family history of malignant neoplasm of ovary Sibling Hypertension Family history of arthritis Other Alcoholism Asthma Social History Social History Social History: Surrogate medical decision maker: Valerio Lieberman, spouse. Code status: Full code. Smoking packs per day: 1 Smoking cigarettes per day: 20.0 Years smoked: 5 Smoking pack-years: 5.00 Smoking status: Former smoker Second hand tobacco smoke exposure: No Smoking end date: 05/12/00 Additional smoking assessment comments: patient smokes marijuana most days for pain control Alcohol intake: never Substance use: current Substance use type: marijuana Other substance usage details: GUMGUSTAVO @ HX Last use: 01/04/24 Do You Feel Safe in your Home?: Yes Lack of Transportation: YES Lack of Food: Never True Current Housing: I Do Not Have Housing Concerned About Future Housing: No Difficulty Paying Gas/Electric Bills: No Difficulty Paying for Meds: No Currently Unemployed: No Education: Bachelor's Degree Difficulty w/ Childcare or Family Care: No Living arrangements: with family Additional living arrangements comments: Lives with spouse and children. 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 Gender identity (if verbalized by the patient): Female Spiritual care concerns: No Exam Narrative: GENERAL: Well-appearing, well-nourished, and in no acute distress. HEAD: Normocephalic, atraumatic. Eyes: PERRLA, EOMI, left gaze nystagmus. ENT: Mucous membranes moist. TMs normal bilaterally. CHEST: Clear to auscultation. No respiratory distress. HEART: Regular rate and rhythm. Normal peripheral pulses. ABDOMEN: Soft, nontender, nondistended. EXTREMITIES: Normal range of motion. No edema. SKIN: Warm, dry, no rash. NEURO: Alert and oriented x3. PSYCH: Normal mood and affect. Course Course Emergency Course: Dizziness improved with meclizine and fluids. Informed of lab and imaging results. No additional questions at this time. Feels comfortable with discharge home. Vital Signs Vital signs: Vital Signs Temperature 97.6 F 07/12/24 05:18 Pulse Rate 120 H 07/12/24 05:18 Respiratory Rate 18 07/12/24 05:18 Blood Pressure 124/82 07/12/24 05:18 Pulse Oximetry 100 07/12/24 05:18 Temperature 97.9 F 07/12/24 07:00 Pulse Rate 89 07/12/24 07:00 Respiratory Rate 16 07/12/24 07:00 Blood Pressure 111/74 07/12/24 07:00 Pulse Oximetry 95 07/12/24 07:00 MDM - Syncope Lab Data 07/12/24 05:25 07/12/24 05:25 Labs: Lab Results 07/12/24 Range/Units 05:25 WBC 9.5 (4.5-10.0) K/mm3 RBC 4.81 (4.2-5.4) M/mm3 Hgb 13.1 (12.0-15.0) g/dL Hct 41.6 (37.0-47.0) % MCV 86.5 (80-100) fl MCH 27.2 (26-34) pg MCHC 31.5 L (32-36) g/dl RDW 17.0 H (11.5-14.5) % Plt Count 369 (150-375) k/mm3 MPV 10.7 H (7.4-10.4) fl Immature Gran % (Auto) 0.3 (0-0.5) % Neut % (Auto) 51.9 (45.5-73.1) % Lymph % (Auto) 32.7 (18.3-44.2) % [place] % (Auto) 12.0 H (2.6-8.5) % Eos % (Auto) 2.8 (0-4.4) % Baso % (Auto) 0.3 (0.2-1.2) % Lymph # (Auto) 3.10 (0.9-3.2) K/mm3 [place] # (Auto) 1.1 H (0.1-0.6) K/mm3 Eos # (Auto) 0.3 (0-0.3) K/mm3 Baso # (Auto) 0.0 (0.0-0.1) K/mm3 Abs Immat Gran (auto) 0.03 (0.00-0.031) K/mm3 Absolute Neuts (auto) 4.9 (1.3-6.7) K/mm3 Absolute Nucleated RBC 0.000 (0.0-0.012) K/mm3 Nucleated RBC % 0.0 (0.0-0.2) % Sodium 138 (137-145) mmol/L Potassium 3.8 (3.4-5.0) mmol/L Chloride 100 (98-107) mmol/L Carbon Dioxide 26 (22-30) mmol/L Anion Gap 12 (4-12) mmol/L BUN 18 H (7-17) mg/dL Creatinine 0.54 L (0.7-1.0) mg/dL Estim Creat Clear Calc 132 ml/min Estimated GFR > 60 (59 - ) Glucose 99 (65-110) mg/dL Calcium 9.3 (8.4-10.2) mg/dL Total Bilirubin 0.5 (0.2-1.3) mg/dL AST 29 (14-36) U/L ALT 18 (6-35) U/L Alkaline Phosphatase 78 (38-126) U/L Total Protein 9.0 H (6.3-8.2) g/dL Albumin 4.3 (3.5-5.1) g/dL Imaging Data Radiologist's impression: ITS Impressions Chest X-Ray 07/12/24 07:37 Impression: No acute abnormality. No change from prior exam. Stable probable chronic midlung scarring and chronic blunting right costophrenic angle. Correlate for minimal right pleural effusion. Loop recorder. Elbow X-Ray 07/12/24 07:59 Impression: Unremarkable radiographs. Head CT 07/12/24 07:59 Impression: No significant abnormality seen. Shoulder X-Ray 07/12/24 08:00 Impression: Unremarkable left shoulder radiographs. Discharge Plan Discharge Clinical Impression: Vertigo Patient Disposition: Home, Self-Care Condition: Stable Instructions: Vertigo (ED) Additional Instructions: Return to the ER if you have worsening dizziness, you cannot keep down food/water/medication, you have weakness in arm or leg, have additional concerns. Patient Language: Nauruan Prescriptions: New meclizine 25 mg tablet 25 mg PO TID PRN (Reason: dizziness) Qty: 14 0RF No Action ropinirole 1 mg tablet 1 mg PO BID Rx Instructions: Pt takes one tablet with dinner and one tablet at HS doxepin 10 mg capsule 10 mg PO QHS tramadol 50 mg tablet 100 mg PO Q8H PRN Patient Comments: Prescribed by [employer] azathioprine 100 mg tablet 150 mg PO DAILY nystatin 100,000 unit/gram ointment 1 applic topical TID Qty: 30 1RF Rx Instructions: apply to rash under abdominal folds nystatin 100,000 unit/gram powder 1 applic topical TID Qty: 60 1RF Rx Instructions: Apply to abdominal rash; patient has not used powder r/t topical ointment albuterol sulfate 90 mcg/actuation HFA aerosol inhaler See Rx Instructions inhalation Q4H PRN (Reason: shortness of breath or wheezing) Qty: 8.5 3RF Rx Instructions: 1-2 puffs inhaled every 4 hours PRN; multivitamin Tablet 1 tablet PO HS divalproex 500 mg Tablet Extended Release 24 Hr 500 mg PO BID cholecalciferol (vitamin D3) [Vitamin D3] 125 mcg (5,000 unit) Tablet 125 mcg PO DAILY aripiprazole 10 mg tablet 10 mg PO DAILY sulfasalazine 500 mg tablet,delayed release (DR/EC) 500 mg PO BID famotidine 40 mg tablet 40 mg PO QPM Stool Softener 50 mg Capsule 50 mg PO TID acetaminophen [Tylenol Extra Strength] 500 mg tablet 1,000 mg PO Q6H PRN (Reason: pain) Qty: 50 0RF albuterol sulfate 90 mcg/actuation HFA aerosol inhaler 2 puff inhalation QID PRN (Reason: shortness of breath or wheezing) Qty: 8.5 0RF fluticasone propionate [Allergy Relief (fluticasone)] 50 mcg/actuation spray,suspension 1 spray intranasal DAILY Qty: 16 0RF Rx Instructions: administer into each nostril ondansetron 4 mg tablet,disintegrating 4 mg PO Q8H PRN (Reason: nausea and vomiting) Qty: 10 0RF calcium citrate 150 mg Capsule 150 mg PO DAILY aspirin 81 mg Tablet 81 mg PO DAILY duloxetine 60 mg capsule,delayed release(DR/EC) 60 mg PO BID Qty: 60 7RF (DME) blood-glucose meter [OneTouch Verio Flex Start] Kit See Rx Instructions .Route Qty: 1 0RF Rx Instructions: use to test blood sugar in the morning and when dizzy/shaky (DME) OneTouch Verio test strips Strip See Rx Instructions .Route Qty: 100 3RF Rx Instructions: Use to test blood sugar in the morning, as well as when shaky/dizzy (DME) lancets [Easy Touch Safety Lancets] 30 gauge misc See Rx Instructions .Route Qty: 200 2RF Rx Instructions: use to check blood sugar in the morning and when dizzy/shaky alprazolam 0.25 mg tablet 0.25 mg PO ONCE Qty: 2 0RF Rx Instructions: Take 30-60 min before procedure Zepbound 15 mg/0.5 mL pen injector 15 mg subcut WEEKLY Qty: 2 0RF gabapentin 600 mg tablet 600 mg PO TID Qty: 90 0RF Follow-up/Referrals: Morena Sprague DO [Primary Care Provider] - 1 Week
[2024-07-12 10:00] VITALS: BP 111/80; PULSE 82; RESP 19; O2SAT 97
--- NOTE | 2024-07-12 10:01 | PC.NURSE ---
Patient ambulated to the restroom with steady gate. Patient denies dizziness when standing and walking
== END 2024-07-12 10:40 | disposition home or self-care (01) ==
PROVIDERS: Emergency Medicine; Emergency Provider Emergency Medicine; PCP Family Medicine
DX: R42 Dizziness and giddiness (principal); L40.50 Arthropathic psoriasis, unspecified; E55.9 Vitamin D deficiency, unspecified; M79.7 Fibromyalgia; G25.81 Restless legs syndrome; K58.9 Irritable bowel syndrome, unspecified; K44.9 Diaphragmatic hernia without obstruction or gangrene; K22.70 Barrett's esophagus without dysplasia; K21.9 Gastro-esophageal reflux disease without esophagitis; N30.10 Interstitial cystitis (chronic) without hematuria; F41.8 Other specified anxiety disorders; Z96.653 Presence of artificial knee joint, bilateral; Z98.84 Bariatric surgery status; Z95.818 Presence of other cardiac implants and grafts; Z87.891 Personal history of nicotine dependence; Z86.2 Personal history of diseases of the blood and blood-forming organs and certain disorders involving the immune mechanism; Z90.49 Acquired absence of other specified parts of digestive tract; Z90.711 Acquired absence of uterus with remaining cervical stump; Z79.82 Long term (current) use of aspirin; Z79.899 Other long term (current) drug therapy; Z79.85 Long-term (current) use of injectable non-insulin antidiabetic drugs; R94.31 Abnormal electrocardiogram [ECG] [EKG]; R00.0 Tachycardia, unspecified
CPT/HCPCS: 36415; 70450; 71046; 73030; 73080; 80053; 85025; 93005; 96374; 96375; 99284; A9270; J1885; J2405

== ENCOUNTER 2024-08-02 10:08 | Outpatient (CLI) | payer BC, MEDICARE, SELFPAY ==
--- NOTE | ~2024-08-02 | XR_ITS ---
EXAMINATION: XR chest 2V Exam Date/Time: 08/02/2024 10:10 CDT HISTORY: R05.9 - Cough, unspecified Comparison: 07/12/2024. RESULT: Lines, tubes, and devices: Loop recorder. Upper abdominal surgical clips.. Lungs and pleura: No focal consolidation or pneumothorax. Unchanged right pleural thickening, right mid and lower lung scar, and right lateral costophrenic angle blunting. Cardiomediastinal silhouette: Stable. Other: No acute osseous or upper abdominal finding. IMPRESSION: Persistent right mid and lower lung scar, with right pleural thickening and chronic pleural blunting versus small effusion. No significant interval change. Reviewed, dictated and finalized at location K. IMPRESSION: Persistent right mid and lower lung scar, with right pleural thickening and chr onic pleural blunting versus small effusion. No significant interval change.
== END 2024-08-02 10:09 | disposition home or self-care (01) ==
PROVIDERS: PCP Family Medicine; Visit Provider Family Medicine
DX: R05.9 Cough, unspecified (principal); J98.4 Other disorders of lung; J92.9 Pleural plaque without asbestos; J94.8 Other specified pleural conditions; J90 Pleural effusion, not elsewhere classified
CPT/HCPCS: 71046

== ENCOUNTER 2024-08-10 11:02 | Outpatient (CLI) | payer BC, MEDICARE, SELFPAY ==
--- NOTE | 2024-08-10 11:21 | ECG_ITS ---
Test Date: 2024-08-10 11:29:40 Measurements Intervals [place] Rate: 88 P: 39 SC: 141 QRS: -24 QRSD: 98 T: 44 QT: 379 QTc: 459 Interpretive Statements SINUS RHYTHM INCOMPLETE RIGHT BUNDLE BRANCH BLOCK BASELINE WANDER- V2 BORDERLINE ECG Compared to ECG 07/12/2024 05:26:35 HEART RATE HAS DECREASED Electronically Signed On 08-10-2024 12:26:11 CDT by Earl Leon D.O.
--- OUTSIDE RECORDS SUMMARY | 2024-08-10 12:24 | XMS_ITS | Referral Summary ---
Author Organization [facility] Address [address] [place] [address] Care Team Providers Care Bench Worker Hollow Handle Name Role Phone Morena Sprague DO Primary Care Provider [phone]- [phone] Encounters Date Type Department Care Team Description 08/09/2024 7:45 AM CDT Ancillary Procedure [facility] Cardiology [address] [place] [phone] Syncope and collapse; Palpitations 08/06/2024 7:54 AM CDT - 08/06/2024 11:59 PM CDT Hospital Encounter [facility] ([facility]) [address] [place] [address] Discharge Disposition: Discharge to home or self care 08/06/2024 7:54 AM CDT - 08/06/2024 11:59 PM CDT Hospital Encounter [facility] ([facility]) [address] [place] [id number] Chronic pain of right knee; History of arthroplasty of right knee Discharge Disposition: Discharge to home or self care 08/06/2024 7:54 AM CDT - 08/06/2024 11:59 PM CDT Hospital Encounter [facility] ([facility]) [address] [place] [address] Robert Gonzalez MD Chronic pain of right knee; History of arthroplasty of right knee Discharge Disposition: Discharge to home or self care 07/23/2024 7:00 AM CDT Ancillary Procedure [facility] Cardiology [address] [place] [address] [place] [phone] Status post placement of implantable loop recorder (Primary Dx); Syncope and collapse; Palpitations 07/22/2024 Telephone [facility] Cardiology [address] [place] [address] [place], [place] [address] [phone] Shekhar Garcia MD 07/22/2024 Telephone [facility]opedics [facility] Sports Medicine [address] [place] [address] [address] [place] [address] Omar Valenzuela PA 07/22/2024 10:00 AM CDT Office Visit [facility] Cardiology [address] [facility] [address] [place] [address] Sue Guerrier NP Syncope and collapse; Orthostatic syncope; History of bariatric surgery; Lipid screening 07/21/2024 Orders Only [facility] Orthopaedic Surgery [address] [facility] [address] [place] [phone] Robert Gonzalez MD Chronic pain of right knee (Primary Dx); History of arthroplasty of right knee 07/19/2024 2:00 PM CDT Ancillary Procedure [facility] Imaging at [address] [phone] Chronic left shoulder pain 07/19/2024 2:00 PM CDT Office Visit [facility] Orthopedic [facility] Sports Medicine [address] [place] [phone] Omar Valenzuela PA Chronic left shoulder pain (Primary Dx); Subdeltoid bursitis of left shoulder joint; Incomplete tear of left rotator cuff, unspecified whether traumatic; Arthritis of left acromioclavicular joint; Biceps tendinitis of left upper extremity 07/08/2024 Telephone [facility] [address] [place] [address] [address] [place] [address] Roula Ledezma NP Appointment 06/28/2024 Orders Only [facility] Cardiology [address] [place] [address] [place] [phone] Shekhar Garcia MD Syncope and collapse (Primary Dx); Status post placement of implantable loop recorder 06/28/2024 7:15 AM BOTTOM LOADER Ancillary Procedure [facility] Cardiology [address] [place] [phone] Status post placement of implantable loop recorder (Primary Dx); Syncope and collapse; Palpitations 06/23/2024 Telephone [facility] [address] [facility] [address] [place] [phone] Parul Menon RN PMC Intake Assessment 06/21/2024 Orders Only [facility] Orthopaedic Surgery [address] [place] [address] Medical Office [address] [place] [address] Robert Gonzalez MD Chronic pain of right knee (Primary Dx) 06/11/2024 Telephone [facility] Medicine [address] [place] [phone] Gamal Donahue MD Surgical Clearance 06/11/2024 9:15 AM BOTTOM LOADER Office Visit [facility] Medicine [address] [place] [phone] Gamal Donahue MD Psoriatic arthritis (HCC) (Primary Dx); Subdeltoid bursitis of left shoulder joint; Incomplete tear of left rotator cuff, unspecified whether traumatic; Arthritis of left acromioclavicular joint 06/10/2024 7:16 AM BOTTOM LOADER - 06/10/2024 11:59 PM BOTTOM LOADER Hospital Encounter [facility] Radiology [address] [place] [address] Jose Alberto Bridges MD Chronic pain of right knee Discharge Disposition: Discharge to home or self care 06/09/2024 Telephone [facility] Radiology [address] [place] [address] Albertina Loza, B.A. 06/04/2024 7:15 AM BOTTOM LOADER - 06/04/2024 11:59 PM BOTTOM LOADER Hospital Encounter [facility] ([facility]) [address] [place] [address] Chronic pain of right knee Discharge Disposition: Discharge to home or self care 06/04/2024 7:45 AM BOTTOM LOADER Office Visit [facility] Orthopaedic Surgery [address] [facility] 6th [place] [address] [place] [address] Robert Gonzalez MD Chronic pain of right knee (Primary Dx) 06/02/2024 3:50 PM BOTTOM LOADER Lab [address] [phone] Acute knee pain, unspecified laterality 06/02/2024 Orders Only [facility] Orthopaedic Surgery [address] [facility] [address] [place] [phone] Robert Gonzalez MD Chronic left shoulder pain (Primary Dx); Acute knee pain, unspecified laterality 05/17/2024 9:00 AM BOTTOM LOADER Ancillary Procedure [facility] Card[facility] [address] [facility] [address], [place] [address] Status post placement of implantable loop recorder (Primary Dx); Syncope and collapse; Palpitations from Last 3 Months Allergies Active Allergy Reactions Criticality Noted Date Comments Amoxicillin Rash Medium 03/18/2017 Clindamycin Hives,Swelling Medium 09/17/2022 Erythromycin Vomiting Low 08/04/2017 Ibuprofen Rash,Other (See comments) Medium 08/04/2017 Latex Rash Medium 03/18/2017 Nsaids (Non-Steroidal Anti-Inflammatory Drug) Other (See comments) Low 03/18/2017 Bypass gastric Penicillins Rash,Other (See comments) Medium 08/04/2017 Skin sloughing Tolmetin Unknown 03/18/2017 Bypass gastric Medications cholecalcifero l (VITAMIN D-3) 10,000 unit capsule Take 1 capsule (10,000 Units total) by mouth daily Active multivitamin capsule Take 1 capsule by mouth daily Active DULoxetine DR (CYMBALTA) 60 mg capsule Take 1 capsule (60 mg total) by mouth daily Active CALCIUM ORAL Take by mouth Unsure med dosage every day Active gabapentin (NEURONTIN) 600 mg tablet gabapentin 600 mg tablet TAKE 1 TABLET BY MOUTH TWICE A DAY Active rOPINIRole (REQUIP) 1 mg tablet 02/25/20 21 Active traMADoL (ULTRAM) 50 mg tablet TAKE 1-2 TABS WITH OTC TYLENOL BY MOUTH THREE TIMES DAILY FOR ARTHRITIS PAIN 08/09/19 22 Active lidocaine (ASPERCREME) 4 % adhesive patch,medicate d Place 1 patch on the skin daily 5 patch 09/21/19 23 Active ARIPiprazole (ABILIFY) 10 mg tablet Take 1 tablet (10 mg total) by mouth 10/03/19 23 Active sulfaSALAzine EN (AZULFIDINE EN) 500 mg EC tablet Take 2 tablets (1,000 mg total) by mouth 2 (two) times a day 04/29/20 23 Active ALPRAZolam (XANAX) 0.25 mg tablet TAKE ONE TO 2 TABLETS BY MOUTH ONCE 30-60 MINUTES BEFORE PROCEDURE 05/06/20 24 Active baclofen (LIORESAL) 10 mg tablet Take 1 tablet (10 mg total) by mouth as needed for muscle spasms 04/19/20 24 Active doxepin (SINEquan) 10 mg capsule TAKE 1 CAPSULE BY MOUTH EVERYDAY AT BEDTIME Active fluticasone propionate (FLONASE) 50 mcg/actuation nasal spray 1 spray daily 03/18/20 24 Active clobetasoL (TEMOVATE) 0.05 % external solution APPLY ONCE DAILY TO PSORIASIS AT BEDTIME. 06/18/19 25 Active clobetasoL (TEMOVATE) 0.05 % ointment PLEASE SEE ATTACHED FOR DETAILED DIRECTIONS 06/18/19 25 Active leflunomide (ARAVA) 20 mg tablet Take 1 tablet (20 mg total) by mouth daily 06/21/19 25 Active meclizine (ANTIVERT) 25 mg tablet TAKE 1 TABLET BY MOUTH 3 TIMES A DAY NEEDED FOR DIZZINESS 07/13/19 25 Active omeprazole (PriLOSEC) 40 mg capsule Oral 09/24/19 24 Active divalproex ER (DEPAKOTE ER) 500 mg 24 hr tablet TAKE 1 TABLET TWICE A DAY BY ORAL ROUTE FOR 90 DAYS. 06/11/19 25 Active Zepbound 15 mg/0.5 mL pen injector INJECT 15 MG (0.5 ML) SUBCUTANEOUSLY WEEKLY 07/07/19 25 Active vitamin b complex tablet Take 1 tablet by mouth daily Unsure med dosage 025 Discontin ued(Thera py completed ) divalproex ER (DEPAKOTE ER) 250 mg 24 hr tablet Take 2 tablets (500 mg total) by mouth 2 (two) times a day 10/16/19 22 025 Discontin ued(Alter phu therapy) azaTHIOprine (IMURAN) 50 mg tablet TAKE 3 TABLETS (150 MG) BY ORAL ROUTE ONCE DAILY FOR 30 DAYS 025 Discontin ued(Alter phu therapy) famotidine (PEPCID) 40 mg tablet Take 1 tablet (40 mg total) by mouth nightly 025 Discontin ued(Alter phu therapy) eszopiclone (LUNESTA) 3 mg tablet TAKE 1 TABLET BY MOUTH AT BEDTIME NEEDED FOR 30 DAYS 02/26/20 23 025 Discontin ued(Thera py completed ) Ozempic 1 mg/dose (4 mg/3 mL) pen injector injection 04/18/20 23 025 Discontin ued(Alter phu therapy) hydroxychloroq uine (PLAQUENIL) 200 mg tablet TAKE 2 TABLETS (400MG) BY MOUTH EVERY DAY 05/10/20 24 025 Discontin ued(Thera py completed ) Zepbound 12.5 mg/0.5 mL pen injector INJECT 12.5MG SUBCUTANEOUSLY ONCE WEEKLY 05/20/19 25 025 Discontin ued(Alter phu therapy) Active Problems Problem Noted Date Diagnosed Date Arthritis of left acromioclavicular joint 2024 Incomplete tear of left rotator cuff 06/11/2024 Subdeltoid bursitis of left shoulder joint 06/11 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 She desires to have conservative management and will return for pessary fitting after she has had additional PFPT visits. Pneumonia due to infectious organism 02/18/2023 Arthralgia of both knees 12/16/2022 Memory loss 10/18/2022 Essential tremor 10/18/2022 Pleural effusion 09/17/2022 Falls frequently 05/01/2022 Weakness of both lower extremities 05/01/2022 Visit for wound check 02/18/2022 Status post placement of implantable loop record er 02/18/2022 Overview (02/18/2022): the Shelf LINQ11 Loop Recorder. Dx; Syncope, Palpitations. DOI 02/11/2022- Linh. [employer]link remote f/u. Palpitations 02/06/2022 Syncope and collapse 12/06/2021 Right ventricular enlargement 12/06/2021 Dyspareunia, female 10/24/2021 Mixed stress and urge urinary incontinence 10/24 Assessment & Plan (03/12/2023 9:35 PM CDT): Management options were discussed for STACI including expectant, conservative (behavioral modification, pelvic floor physical therapy, incontinence pessary), medical management and surgical management (synthetic midurethral sling, sacral neuromodulation, intravesicular botulinum toxin injections). -I reviewed the behavior modification recommendations for urgency, frequency and urge incontinence inclusive of: volume restriction to 50-60 ounces per day, avoidance of bladder irritants specifically caffeine and artificial sweeteners, scheduled voids q 2-3 hours as tolerated. -Given duration of symptoms and history of TOT, I am recommending she return for UDS/cystoscopy Assessment & Plan (10/24/2021 4:35 PM CDT): Management options were discussed for STACI including expectant, conservative (behavioral modification, pelvic floor physical therapy, incontinence pessary), medical management and surgical management (synthetic midurethral sling, sacral neuromodulation, intravesicular botulinum toxin injections). A urine culture is being sent today to rule out a UTI as a possible cause of her symptoms. She elected for behavioral modification and pelvic floor physical therapy. - she will keep a 3 day bladder diary I reviewed the behavior modification recommendations for urgency, frequency and urge incontinence inclusive of: volume restriction to 50-60 ounces per day, avoidance of bladder irritants specifically caffeine and artificial sweeteners, scheduled voids q 2-3 hours as tolerated. Incomplete uterovaginal prolapse 10/24/2021 Assessment & Plan (10/24/2021 8:49 PM CDT): - she has some additional pelvic floor loss of support noted to anterior vaginal wall on today's exam - she has rectal bulging into the perineal body. We discussed that maximizing stool consistency as this may resolve her defecatory dysfunction. - she will follow up in 3-[address] Jones to reassess and discuss additional intervention if desired Ascending aortic aneurysm 10/23/2021 Essential hypertension 10/23/2021 Other chest pain 10/23/2021 Mixed hyperlipidemia 10/23/2021 Psoriatic arthritis 10/23/2021 Lower abdominal pain 08/29/2020 Functional diarrhea 06/19/2020 Rectal bleeding 06/19/2020 History of total left knee replacement 0 Preoperative cardiovascular examination 09/15/19 Assessment & Plan (11/17/2019 11:07 AM CDT): Reviewed calorie restriction based on BMR as previously detailed. Reviewed recommendation/goal of >/= 150 minutes/week moderate-intensity aerobic exercise. Assessment & Plan (09/15/2019 3:22 PM CDT): Discussed that weight loss will require calorie deficit. Calculated basal metabolic rate and estimated total energy expenditure; discussed 500-1000 kcal/day deficit to lose 1-2 lb per week. Asked to keep detailed food diary for at least 1 week and bring to next visit. Discussed relatively small, although significant, role of exercise in weight loss; greater importance in weight maintenance as shown in Look Ahead study and National Weight Control Registry. Discussed recommendation/goal for 150 minutes per week moderate-intensity aerobic exercise. Metabolic and nutritional disorder 09/15/2019 Assessment & Plan (11/17/2019 11:07 AM CDT): Continue low-carb (<150 g/day), low-glycemic diet. Labs. Assessment & Plan (09/15/2019 3:24 PM CDT): Will try to obtain most recent labs. If not done recently, will check CBC, CMP, A1c, lipids, TSH, ferritin, folic acid, B12, 25-OH D when able. Discussed increased risk of DM in setting of obesity and LFGA baby. Discussed insulin resistance including effect on weight and risk for progression to diabetes. Recommended low-carb, low-glycemic diet; choose whole grains and avoid more highly processed carbohydrates. Discussed potential benefits of this w/r/t gut microbiome. Referred to ADA and [employer] websites for additional information on topics including glycemic index/carbohydrate choices, protein sources. Consider metformin; consider GLP-1 RA. KATHY on CPAP 09/15/2019 Assessment & Plan (09/15/2019 3:25 PM CDT): Discussed comorbidities associated with sleep apnea, including effects on weight, and stressed importance of adequate treatment if present. Continue CPAP. Class 3 severe obesity due t o excess calories with serious comorbidity in adult 09/15/2019 Assessment & Plan (11/17/2019 11:08 AM CDT): Obesity is improving with lifestyle modifications. Diet interventions: as noted. Regular aerobic exercise program discussed. Assessment & Plan (09/15/2019 3:26 PM CDT): Obesity is worsening. General weight loss/lifestyle modification strategies discussed (elicit support from others; identify saboteurs; non-food rewards, etc). Behavioral treatment: recommendede counseling. Diet interventions: as noted. Informal exercise measures discussed, e.g. taking stairs instead of elevator. Regular aerobic exercise program discussed. More detailed recommendations pending review of labs, food record. Discussed potential weight-positive effects of some of his/her current medications and potential alternatives. Continue current medications for now. Consider topiramate, ideally as a replacement for gabapentin. History of Emmie-en-Y gastric bypass 09/15/2019 Assessment & Plan (09/15/2019 3:27 PM CDT): Will try to obtain last labs, EGD for review. Routine labs to evaluate for vitamin deficiencies in setting of intestinal malabsorption if not done recently. Bilateral myofascial pain 06/23/2019 Pelvic floor dysfunction 06/23/2019 Assessment & Plan (03/12/2023 9:35 PM CDT): -continue with PFPT Assessment & Plan (10/24/2021 4:31 PM CDT): -On examination, we elicited Moderate pain to palpation of the pelvic floor muscles. -We discussed the role that her pelvic floor muscle dysfunction is likely playing in her urinary symptoms, pelvic floor symptoms and bowel symptoms. -Management options for levator ani/obturator pain/spasm were discussed including pelvic floor physical therapy and vaginal icing. -A prescription for PFPT was given. She will resume vaginal icing with the supplies she has at home. Assessment & Plan (09/15/2019 3:25 PM CDT): Discussed potential for improvement and/or reduced progression with weight loss. Rectal prolapse 06/23/2019 Incomplete bladder emptying 06/23/2019 Assessment & Plan (10/24/2021 4:32 PM CDT): - patient has history of incomplete bladder emptying and now reports episodes of incomplete bladder emptying - she was found to be adequately emptying her bladder today - discussed measuring a PVR when she has feelings of incomplete bladder emptying Constipation 06/11/2019 Assessment & Plan (03/12/2023 9:36 PM CDT): -has follow up scheduled with GI -encouraged to follow up with CRS recommendation of defecography and anal manometry Assessment & Plan (10/24/2021 4:33 PM CDT): We discussed the importance of treating her constipation. She was advised to use Miralax BID until bowels move once per day and then decrease Miralax to once per day. If symptoms do not improve, I recommend her seeing a charge lpn or CRS. Anxiety and depression 08/04/2017 Panic attacks 08/04/2017 Morbid obesity due to excess calories 08/04/2017 Resolved Problems Problem Noted Date Diagnosed Date Resolved Date Crohn's disease of large int estine without complication 06/19/2020 08/29/2020 Overview (06/19/2020): IBD History: Diagnosis: inflammatory bowel disease, NOS. Year of Diagnosis: 2017 Year Symptoms Began: 2017 Phenotype: inflammatory Distribution: proctitis Complications: no known Extraintestinal manifestations: joint pain, negative for RA or psoriatic arthritis Perianal disease: no known Previously Failed Treatments: mesalamine suppositories, medrol dose pack (improved joint pain but not diarrhea). Current Treatment: none Surgeries (Date, type): hemorrhoid banding x2 Endoscopies (Date, findings, path): 01/2020 EGD and colonoscopy normal Imaging: CT 01/2020 normal. Assessment & Plan (06/19/2020 3:56 PM BOTTOM LOADER): She presents with extensive prior workup for IBD including multiple colonoscopies, upper endoscopy, capsule endoscopy, CTE which were all unrevealing for IBD except for a single flex sig showing mild proctitis (no biopsies) after hemorrhoid removal procedure. She has had elevated CRP to 14 in the past, as well as mildly elevated fecal calprotectin. Her GI symptoms of diarrhea, bloody stool, abdominal cramping have not responded to mesalamine suppositories or to steroid courses. At this time, it is still unclear whether she truly has IBD. One would expect for her to respond to steroids if she had inflammation. Other possibilities include IBS, celiac, gastric bypass related diarrhea. - we will plan to repeat colonoscopy with evaluation of the TI and colon with biopsies - will get EGD for gastric mapping biopsies (gastric intestinal metaplasia on her last EGD) as well as biopsies for celiac. - will obtain an MRE to evaluate small bowel - will order basic labs including CBC, CMP, CRP, ESR, HB serologies, lipid panel, iron panel, ferritin, TPMT activity, T spot, vitamin D. - will also obtain rheumatologic workup including RF, antiCCP, ASH with reflex an refer to rheumatology here at [facility] for second opinion on her joint issues. We will see her back in clinic after her endoscopies for further evaluation and to make decisions about potential treatments. Immunizations Immunization Administration Dates Next Due Influenza, Live, Intranasal, Quadrivalent 2014 Influenza, Quadrivalent, Soledad l Culture-based MDCK, Antibiotic Free, Intramuscular 02/19/2018 Influenza, Quadrivalent, Split, Intramuscular ,02/10/2016 Influenza, Quadrivalent, Spl it, Preservative Free, Intramuscular 02/10/2020 Influenza, Trivalent, IM (MDV) 02/09/2017 Influenza, Trivalent, Preservative Free, Intramu scular 02/19/2018 Influenza, Unspecified 12/19/2022,03/14/2014 MMR 03/06/2016 Social History Tobacco Use Types Packs/Day Years Used Date Smoking Tobacco: Former Cigarettes 1 5 0 05/12/1996 - 05/12/2001 Smokeless Tobacco: Never Tobacco Cessation:Counseling Given: Not Answered Alcohol Use Standard Drinks/Week Comments Yes 0 (1 standard drink = 0.6 oz pur e alcohol) socially AUDIT-C Answer Date Recorded Q1: How often do you have a drink containing alcohol? Never 03/31/2024 Q2: How many drinks containi ng alcohol do you have on a typical day when you are drinking? Patient does not drink Q3: How often do you have si x or more drinks on one occasion? Never 03/31/2024 Exercise Vital Sign Answer Date Recorde d Days of Exercise per Week 7 days 2018 Minutes of Exercise per Session 20 min 04/28/2019 Personal Safety Answer Date Recorded Have you ever been in or are you currently in a harmful physical or emotional relationship or is someone making you feel afraid or unsafe? 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 Not on file Not on file Not on rudy e Last Filed Vital Signs Vital Sign Reading Time Taken Comments Blood Pressure 104/56 07/22/2024 10:11 AM CDT Pulse 105 07/22/2024 10:11 AM CDT Temperature 36.8 C (98.2 F) 03/12/2023 8:06 AM CDT Respiratory Rate 18 07/19/2024 1:53 PM CDT Oxygen Saturation 94% 07/22/2024 10:11 AM CDT Inhaled Oxygen Concentration - - Weight 89.8 kg (198 lb) 07/22/2024 10:11 AM CDT Height 177.8 cm (5' 10 ) 07/22/2024 10:11 AM CDT Body Mass Index 28.41 07/22/2024 10:11 AM CDT Plan of Treatment Not on file Procedures Procedure Name Priority Date/Time Associated Diagnosis Comments NM BONE IMAGING 3 PHASE Schedule Routine, Read Routine (OP Routine) 08/06/2024 12:17 PM CDT Chronic pain of right knee History of arthroplasty of right knee CT KNEE RIGHT WO CONTRAST Schedule Routine, Read Routine (OP Routine) 08/06/2024 8:35 AM CDT Chronic pain of right knee History of arthroplasty of right knee DEVICE CHECK - REMOTE Routine 07/23/2024 6:58 AM CDT Syncope and collapse Palpitations POCT LIPID PANEL Routine 07/22/2024 10:16 AM CDT Lipid screening XR SHOULDER LEFT 2 OR MORE VIEWS Schedule Routine, Read Routine (OP Routine) 07/19/2024 2:12 PM CDT Chronic left shoulder pain DEVICE CHECK - REMOTE Routine 06/28/2024 10:11 AM BOTTOM LOADER Syncope and collapse Palpitations CELL COUNT W/REFLEX DIFFERENTIAL, BODY FLUID Routine 06/10/2024 10:50 AM BOTTOM LOADER Chronic pain of right knee CELL DIFFERENTIAL, BODY FLUID Routine 06/10/2024 10:50 AM BOTTOM LOADER CRYSTAL ANALYSIS, BODY FLUID Routine 06/10/2024 10:50 AM BOTTOM LOADER Chronic pain of right knee MYCOLOGY (FUNGAL) CULTURE AND STAIN Routine 06/10/2024 8:37 AM BOTTOM LOADER MYCOBACTERIOLOGY AFB CULTURE AND ACID-FAST STAIN Routine 06/10/2024 8:37 AM BOTTOM LOADER AEROBIC AND ANAEROBIC CULTURE AND GRAM STAIN Routine 06/10/2024 8:37 AM BOTTOM LOADER US GUIDED ARTHROCENTESIS MAJOR JOINT Schedule Routine, Read Routine (OP Routine) 06/10/2024 8:22 AM BOTTOM LOADER Chronic pain of right knee XR KNEE RIGHT 4 OR MORE VIEWS Schedule Routine, Read Routine (OP Routine) 06/04/2024 7:31 AM BOTTOM LOADER Chronic pain of right knee CRP (ACUTE PHASE) Routine 06/02/2024 3:5 5 PM BOTTOM LOADER Acute knee pain, unspecified laterality ERYTHROCYTE SEDIMENTATION RATE Routine 06/02/2024 3:55 PM BOTTOM LOADER Acute knee pain, unspecified laterality DEVICE CHECK - REMOTE Routine 05/24/2024 2:20 PM BOTTOM LOADER Syncope and collapse Palpitations DIAGNOSTIC MAMMOGRAM BILATERAL W JAVAN Schedule Routine, Read Routine (OP Routine) 02/28/2022 11:30 AM CDT Mass of breast, unspecified laterality COLONOSCOPY 07/20/2020 9:05 AM BOTTOM LOADER from Last 3 Months or Most Recently Relevant to Health Maintenance Results * NM Bone Imaging 3 Phase (08/06/2024 12:17 PM CDT) Anatomical Region Laterality Modality N/A Nuclear Medicine 08/06/2024 1:53 PM CDT Impressions 08/06/2024 2:26 PM CDT 1. No definite evidence of septic/aseptic loosening. 2. Asymmetric mild linear uptake along the right lateral femoral condyle which may represent reactive osteoblastic activity secondary to altered mechanics. Alternatively, given report of recent knee trauma, this could represent a bone contusion. Dictated by: Mamadou Sanchez M.D. The radiology attending physician has personally reviewed this study, and had reviewed and/or edited this written report and agrees with it. Electronically signed by: Spencer Rivas M.D. Narrative 08/06/2024 2:26 PM CDT EXAMINATION: BONE SCINTIGRAPHY (THREE-PHASE) DATE OF STUDY: 08/06/2024 RADIOPHARMACEUTICAL: 22.1 mCi Tc-99m MDP i.v. HISTORY: 49-year-old with right knee arthroplasty pain with psoriatic arthritis. No white count. Sedimentation rate is at upper limit of normal.. Normal C-reactive protein. FINDINGS: A three-phase examination of the left was performed consisting of radionuclide angiography and immediate post-injection images of the left knee,and delayed images of the left knee left knee. Prior nuclear medicine studies used for comparison: none. Other radiographic comparisons: Same day CT. 07/19/2024 x-ray. Lateral photopenia within the knees is consistent with known bilateral replacements. Mildly increased linear uptake along the lateral femoral component on the immediate and delayed images, co-localizing to the lateral femoral condyle. Questionable asymmetric uptake in the right knee on blood flow images. On the left, there is a similar pattern of uptake localizing to the anterior left medial condyle, likely degenerative/post surgical. Procedure Note Spencer Rivas MD - 08/06/2024 EXAMINATION: BONE SCINTIGRAPHY (THREE-PHASE) DATE OF STUDY: 08/06/2024 RADIOPHARMACEUTICAL: 22.1 mCi Tc-99m MDP i.v. HISTORY: 49-year-old with right knee arthroplasty pain with psoriatic arthritis. No white count. Sedimentation rate is at upper limit of normal.. Normal C-reactive protein. FINDINGS: A three-phase examination of the left was performed consisting of radionuclide angiography and immediate post-injection images of the left knee,and delayed images of the left knee left knee. Prior nuclear medicine studies used for comparison: none. Other radiographic comparisons: Same day CT. 07/19/2024 x-ray. Lateral photopenia within the knees is consistent with known bilateral replacements. Mildly increased linear uptake along the lateral femoral component on the immediate and delayed images, co-localizing to the lateral femoral condyle. Questionable asymmetric uptake in the right knee on blood flow images. On the left, there is a similar pattern of uptake localizing to the anterior left medial condyle, likely degenerative/post surgical. IMPRESSION: 1. No definite evidence of septic/aseptic loosening. 2. Asymmetric mild linear uptake along the right lateral femoral condyle which may represent reactive osteoblastic activity secondary to altered mechanics. Alternatively, given report of recent knee trauma, this could represent a bone contusion. Dictated by: Mamadou Sanchez M.D. The radiology attending physician has personally reviewed this study, and had reviewed and/or edited this written report and agrees with it. Electronically signed by: Spencer Rivas M.D. us Robert Gonzalez MD IMG NM PROCEDURES Fi nal Result * CT Knee Right WO Contrast (08/06/2024 8:35 AM CDT) Anatomical Region Laterality Modality Lower Extremities Right Computed Tomog delaney 08/06/2024 11:1 9 AM CDT Impressions 08/06/2024 5:00 PM CDT Right total knee arthroplasty in near anatomic alignment, without periprosthetic fracture or osteolysis. Dictated by: Yoan Loza M.D. The radiology attending physician has personally reviewed this study, and had reviewed and/or edited this written report and agrees with it. Electronically signed by: Garrett Diaz MD Narrative 08/06/2024 5:00 PM CDT EXAMINATION: CT right knee without intravenous contrast HISTORY: Right knee pain and instability after a fall. TECHNIQUE: CT images of the right knee were obtained without the administration of intravenous administration contrast according to the standard protocol. FINDINGS: Unchanged right total knee arthroplasty, in near anatomic alignment. No periprosthetic fracture or lucency. Trace joint effusion. Intrinsic musculature bulk is normal. Procedure Note Myrna Diaz MD - 08/06/2024 EXAMINATION: CT right knee without intravenous contrast HISTORY: Right knee pain and instability after a fall. TECHNIQUE: CT images of the right knee were obtained without the administration of intravenous administration contrast according to the standard protocol. FINDINGS: Unchanged right total knee arthroplasty, in near anatomic alignment. No periprosthetic fracture or lucency. Trace joint effusion. Intrinsic musculature bulk is normal. IMPRESSION: Right total knee arthroplasty in near anatomic alignment, without periprosthetic fracture or osteolysis. Dictated by: Yoan Loza M.D. The radiology attending physician has personally reviewed this study, and had reviewed and/or edited this written report and agrees with it. Electronically signed by: Garrett Diaz MD Robert Gonzalez MD IMG CT PROCEDURES Fi nal Result * DEVICE CHECK - REMOTE (07/23/2024 6:58 AM CDT) Anatomical Region Laterality Modality Other Narrative 07/23/2024 3:38 PM CDT the Shelf LINQ11 Loop Recorder. Dx; Syncope, Palpitations. DOI 02/11/2022[place]. [facility] remote f/u. Unscheduled ILR remote due to patient report of syncope. Normal device function. Battery function-good Presenting rhythm: NSR Medications: No anticoagulation or cardiac meds Counters since last scheduled transmission on 06/28/24. --0 Tachy --0 Krish --0 Pause --3 Symptom - all 3 symptom reports correlate with sinus tachycardia on EGMs. 1 PAC noted on 2 EGMs. --0 AF See scanned report. [facility] remote f/u 08/09/24. Nestor Romero RN Shekhar Garcia MD CV CARDIAC SERVICES [facility] Final Result * POCT lipid panel (07/22/2024 10:16 AM CDT) Cholesterol, POC 224 mg/dL HDL, POC 83 mg/dL Triglycerides, POC 87 mg/dL LDL Cholesterol POC 124 mg/dL Chol/HDL Ratio, POC 1.5 Non-HDL Cholesterol, POC 141 mg/dL Cholesterol Total, POC 224 mg/dL Capillary blood 07/22/2024 1 0:16 AM CDT Sue Guerreir NP POINT OF CARE TEST ORDERA BLES Final Result * XR Shoulder Left 2 or More Views (07/19/2024 2:12 PM CDT) Anatomical Region Laterality Modality Upper Extremities, Shoulder Left [facility] Narrative 07/19/2024 2:12 PM CDT Four views of the left shoulder negative for acute fracture dislocation or osseous lesion. Arthritic changes noted in the acromioclavicular joint. Maintained glenohumeral joint space noted chronic changes over the greater tuberosity. Result [facility] Omar ARVIZU IMG XR PROCEDURES Final Res ult * DEVICE CHECK - REMOTE (06/28/2024 10:11 AM BOTTOM LOADER) Anatomical Region Laterality Modality Other Narrative 07/01/2024 4:00 PM BOTTOM LOADER the Shelf LINQ11 Loop Recorder. Dx; Syncope, Palpitations. DOI 02/11/2022-[place]. [facility] remote f/u. Routine ILR remote. Normal device function. Battery function-Good. Presenting rhythm: VS, regular 70 bpm. Medications: no cardiac meds noted. Counters since last scheduled transmission on 05/17/2024. No auto or patient recorded episodes noted. See scanned report. [facility] remote f/u 08/09/2024. Nicole Gamez RN Result [facility] Shekhar Garcia MD CV CARDIAC SERVICES [facility] [place] Final Result * Crystal Analysis, Body Fluid (06/10/2024 10:50 AM BOTTOM LOADER) Specimen type, fld Synovial Crystals None Seen None Seen [facility] Fluid 06/10/2024 10:5 0 AM BOTTOM LOADER 06/10/2024 12:14 PM BOTTOM LOADER Robert Gonzalez MD LAB BODY FLUIDS AND STOOLS ORDERABLES Final Result [facility] Department [place] [address] * Cell Differential, Body Fluid (06/10/2024 10:50 AM BOTTOM LOADER) Total cells diffed 100 cells Comment: Interpretive Data Unless otherwise specified, the reference range and other method performance specifications have not been established for CSF/Body Fluid tests. The test results should be integrated into the clinical context for interpretation. Current interpretive data was last revised on 2018. Neutrophils, fld 10 % [facility] Lymphs, fld 35 % [facility] Monocyte, fld 34 % [facility] Eosinophils, fld 1 % [facility] Macrophages, fld 18 % [facility] Synovial cells, fld 2 % [facility] Specimen type, fld Synovial [facility] Fluid 06/10/2024 10:5 0 AM BOTTOM LOADER 06/10/2024 12:14 PM BOTTOM LOADER Jose Alberto Bridges MD LAB BODY FLUIDS AND STOO LS ORDERABLES Final Result Performing Organization Address [facility] Co de Phone Number [facility] [place] [address] * (ABNORMAL) Cell count w/rflx diff, body fluid (06/10/2024 10:50 AM BOTTOM LOADER) Specimen type, fld Synovial Color, fld Red [facility] Clarity, fld Cloudy(A) Clear [facility] Nucleated cells, fld 409 /cumm [facility] Comment: Interpretive Data Unless otherwise specified, the reference range and other method performance specifications have not been established for CSF/Body Fluid tests. The test results should be integrated into the clinical context for interpretation. Current interpretive data was last revised on 2018. RBC, fld 38,567 /cumm [facility] Fluid 06/10/2024 10:5 0 AM BOTTOM LOADER 06/10/2024 12:14 PM BOTTOM LOADER Jose Alberto Bridges MD LAB BODY FLUIDS AND STOO LS ORDERABLES Final Result Performing Organization Address [facility] Co de Phone Number BRETT [facility] [employer] [place] [address] * Mycology (fungal) culture and stain Aspirate Knee, right (06/10/2024 8:37 AM BOTTOM LOADER) Direct Specimen Exam Stain: No Fungal elements seen. Report Final Report: No growth of fungus [facility] Aspirate (Knee, right) 06/10/2024 8:37 AM BOTTOM LOADER 06/10/2024 11:33 AM BOTTOM LOADER Narrative [facility]TT [facility] - 07/08/2024 7:25 AM BOTTOM LOADER Right Knee Aspiration Fluid specimen received in sterile syringe. Testing performed by [facility] ([phone]). Robert Gonzalez MD LAB MICROBIOLOGY - ENERAL ORDERABLES Final Result Performing Organization Address [facility] de Phone Number [facility] Department [place] [address] * Mycobacteriology (AFB) culture and acid-fast stain Aspirate Knee, right (06/10/2024 8:37 AM BOTTOM LOADER) Direct Specimen Exam Stain: No Acid-fast bacilli seen Report Final Report: No growth of acid-fast bacilli [facility] Aspirate (Knee, right) 06/10/2024 8:37 AM BOTTOM LOADER 06/10/2024 11:33 AM BOTTOM LOADER Narrative [facility]TT [facility] - 08/09/2024 2:25 PM CDT Right Knee Aspiration Fluid specimen received in sterile syringe. Testing performed by [facility] ([phone]). Robert Gonzalez MD LAB MICROBIOLOGY - G ENERAL ORDERABLES Final Result Performing Organization Address [facility] Co de Phone Number [facility] Department [place] [address] * Aerobic and anaerobic culture and gram stain Aspirate Knee, right (06/10/2024 8:37 AM BOTTOM LOADER) Direct Specimen Exam Stain: No polymorphonuclear leukocytes seen. No organisms seen. Report Final Report: No growth [facility] Aspirate (Knee, right) 06/10/2024 8:37 AM BOTTOM LOADER 06/10/2024 11:33 AM BOTTOM LOADER Narrative BRETT [facility] - 06/15/2024 11:24 AM BOTTOM LOADER Right Knee Aspiration Fluid specimen received in sterile syringe. Testing performed by [facility] ([phone]) Specimens submitted from normally sterile body sites will have all bacterial morphotypes identified. Specimens that contain grossly mixed avery and/or are from body sites that are not normally sterile will be examined for Staphylococcus aureus, Pseudomonas aeruginosa, beta-hemolytic strep, vancomycin-resistant Enterococcus, Bacteroides, Parabacteroides, Clostridium perfringens and fungus. If any of these are isolated, the organism will be reported. Current interpretive data was last revised on 2019. us Robert Gonzalez MD LAB MICROBIOLOGY - G ENERAL ORDERABLES Final Result BRETT [facility] Department [place] [address] * US Guided Aspiration or Injection of Major Joint (06/10/2024 8:22 AM BOTTOM LOADER) Anatomical Region Laterality Modality Entire body N/A Radio Fluoroscop y 06/10/2024 10:5 9 AM BOTTOM LOADER Impressions 06/10/2024 11:32 AM BOTTOM LOADER Left knee joint aspiration under ultrasound guidance. 5 mL clear red fluid was aspirated and sent for cell count, crystal evaluation, Gram stain, and culture. Dictated by: Jason Gold MD The radiology attending physician has personally reviewed this study, and had reviewed and/or edited this written report and agrees with it. Electronically signed by: Jose Alberto Bridges M.D. Narrative 06/10/2024 11:32 AM BOTTOM LOADER EXAMINATION: Right knee joint aspiration under ultrasound guidance HISTORY: 49-year-old female with a history of psoriatic arthritis status post bilateral knee arthroplasty. The patient has chronic right knee pain and has had aspirations in the past. Elevated inflammatory markers. Aspiration of the right knee is requested. ATTENDING PRESENCE: Dr. Jose Alberto Bridges M.D., the attending radiologist, was present from the beginning to the end of the procedure. SEDATION: The patient did not require conscious sedation for the procedure. TECHNIQUE: The risks, benefits and alternatives were discussed and informed consent was obtained. Prior to beginning the procedure, Bailey Protocol was performed to confirm the patient's identity and the planned procedure. Sterile barriers used during the procedure included cap, mask, hand hygiene, sterile gloves, and sterile drape. Chloraprep was used for cutaneous antisepsis. The patient was placed supine on the procedure table. The right knee joint was localized with ultrasound guidance. Local anesthesia was achieved with subcutaneous injection of 1% lidocaine 3 mL. An 18-gauge needle was then introduced into the joint under imaging guidance. 5 mL of red clear synovial fluid was aspirated. The needle was removed. The skin was cleansed with hydrogen peroxide, and a bandage was placed. Complication: None ESTIMATED BLOOD LOSS: None CONDITION: Stable condition. DISCHARGED TO: Home FINDINGS: There is a small knee joint effusion. Imaging confirm intra-articular position of the needle tip. After aspiration, there is resolution of the left knee joint effusion. Procedure Note Jose Alberto Bridges MD - 06/10/2024 EXAMINATION: Right knee joint aspiration under ultrasound guidance HISTORY: 49-year-old female with a history of psoriatic arthritis status post bilateral knee arthroplasty. The patient has chronic right knee pain and has had aspirations in the past. Elevated inflammatory markers. Aspiration of the right knee is requested. ATTENDING PRESENCE: Dr. Jose Alberto Bridges M.D., the attending radiologist, was present from the beginning to the end of the procedure. SEDATION: The patient did not require conscious sedation for the procedure. TECHNIQUE: The risks, benefits and alternatives were discussed and informed consent was obtained. Prior to beginning the procedure, Bailey Protocol was performed to confirm the patient's identity and the planned procedure. Sterile barriers used during the procedure included cap, mask, hand hygiene, sterile gloves, and sterile drape. Chloraprep was used for cutaneous antisepsis. The patient was placed supine on the procedure table. The right knee joint was localized with ultrasound guidance. Local anesthesia was achieved with subcutaneous injection of 1% lidocaine 3 mL. An 18-gauge needle was then introduced into the joint under imaging guidance. 5 mL of red clear synovial fluid was aspirated. The needle was removed. The skin was cleansed with hydrogen peroxide, and a bandage was placed. Complication: None ESTIMATED BLOOD LOSS: None CONDITION: Stable condition. DISCHARGED TO: Home FINDINGS: There is a small knee joint effusion. Imaging confirm intra-articular position of the needle tip. After aspiration, there is resolution of the left knee joint effusion. IMPRESSION: Left knee joint aspiration under ultrasound guidance. 5 mL clear red fluid was aspirated and sent for cell count, crystal evaluation, Gram stain, and culture. Dictated by: Jason Gold MD The radiology attending physician has personally reviewed this study, and had reviewed and/or edited this written report and agrees with it. Electronically signed by: Jose Alberto Bridges M.D. Robert Gonzalez MD [facility] US PROCEDURES Fi nal Result * XR Knee Right 4 or More Views (06/04/2024 7:31 AM BOTTOM LOADER) Anatomical Region Laterality Modality Lower Extremities, Knee Right Computed Radiography 06/04/2024 8:41 AM BOTTOM LOADER Impressions 06/04/2024 8:41 AM BOTTOM LOADER 1. New total right knee arthroplasty in near-anatomic position with neutral mechanical axis. Electronically signed by: Seb Farris M.D. Narrative 06/04/2024 8:41 AM BOTTOM LOADER EXAMINATION: XR KNEE RIGHT 4 OR MORE VIEWS HISTORY: Right knee arthroplasty FINDINGS: 4 view examination of the right knee is read with comparison to 02/21/2021. There is a new total right knee arthroplasty in near-anatomic position. No periprosthetic fracture or component migration. There is a small joint effusion. There is neutral mechanical axis on the right. Procedure Note Seb Dietrich MD - 06/04/2024 EXAMINATION: XR KNEE RIGHT 4 OR MORE VIEWS HISTORY: Right knee arthroplasty FINDINGS: 4 view examination of the right knee is read with comparison to 02/21/2021. There is a new total right knee arthroplasty in near-anatomic position. No periprosthetic fracture or component migration. There is a small joint effusion. There is neutral mechanical axis on the right. IMPRESSION: 1. New total right knee arthroplasty in near-anatomic position with neutral mechanical axis. Electronically signed by: Seb Farris M.D. Robert Gonzalez MD [facility] XR PROCEDURES Fi nal Result * (ABNORMAL) Erythrocyte sedimentation rate (06/02/2024 3:55 PM BOTTOM LOADER) Erythrocyte sedimentation rate 74(H) 1 - 20 mm/hr Blood 06/02/2024 3:55 PM BOTTOM LOADER 06/02/2024 4:32 PM BOTTOM LOADER Robert Gonzalez MD LAB BLOOD ORDERABLES Final Result Performing Organization Address City/[facility] Co de Phone Number [facility] ([place]) 1 [facility] [employer] [place] [place] [address] * (ABNORMAL) CRP (acute phase) (06/02/2024 3:55 PM BOTTOM LOADER) Pathologist [facility] CRP 24.2(H) <=10.0 mg/L Blood 06/02/2024 3:55 PM BOTTOM LOADER 06/02/2024 4:32 PM BOTTOM LOADER Result [facility] Robert Gonzalez MD LAB BLOOD ORDERABLES Final Result Performing Organization Address [facility] de Phone Number [facility] ([place]) 1 [facility] [employer] [place] [address] * DEVICE CHECK - REMOTE (05/24/2024 2:20 PM BOTTOM LOADER) Anatomical Region Laterality Modality Other Narrative 06/10/2024 4:20 PM BOTTOM LOADER [employer] REVEAL LinQ II implanted February 11, 2022 for syncope. Patient had a routine [facility] remote transmission of their implantable loop recorder on May 17, 2024. Medications: None Interrogation of the patients device demonstrates that the Linq is functioning appropriately (0) Symptom events Auto Device detected events of, (0) Pause, (0) Bradycardia, (0) Tachy, (0) AT, (0) AF, Presenting Rhythm: Sinus tachycardia at 100 bpm Battery: Good Plan: 1) Routine Remote with no new events. 2) Continue to monitor remotely. Vinod Bates Device Mold Holder Shekhar Garcia MD CV CARDIAC SERVICES [facility] [place] Final Result * Diagnostic Mammogram Bilateral W Javan (02/28/2022 11:30 AM CDT) Anatomical Region Laterality Modality Breast Bilateral Mammography 02/28/2022 12:2 9 PM CDT Impressions 02/28/2022 2:28 PM CDT 1. No evidence of malignancy in EITHER breast. 2. No mammographic or sonographic correlate for area of clinical concern in the LEFT breast. In the absence of imaging findings, any decision for further intervention should be based on the clinical assessment. OVERALL FINAL ASSESSMENT: BI-RADS Category 1: Negative. RECOMMENDATION: 1. Annual screening mammography is recommended. 2. Clinical follow-up is recommended. Dictated by: Lilly Ramirez M.D. The radiology attending physician has personally reviewed this study, and had reviewed and/or edited this written report and agrees with it. Electronically signed by: Polly Ramesh M.D. Narrative 02/28/2022 2:28 PM CDT EXAMINATION: BILATERAL DIGITAL DIAGNOSTIC MAMMOGRAM INCLUDING CAD AND BILATERAL DIGITAL BREAST TOMOSYNTHESIS; LEFT BREAST SONOGRAM HISTORY: 47-year-old woman with BILATERAL diffuse breast tenderness for a couple of months. She also has a new palpable quarter-sized LEFT breast lump for one month, which was also palpated by her physician. COMPARISON: Multiple prior studies, most recently 11/09/2020 and dating back to 08/24/2014. TECHNIQUE: Full field digital mammographic views of BOTH breasts were performed, including computer aided detection (CAD) and BILATERAL digital breast tomosynthesis (DBT). Directed ultrasound evaluation of the LEFT breast was performed. BREAST PARENCHYMAL COMPOSITION: There are scattered areas of fibroglandular density. MAMMOGRAM FINDINGS: There is no new suspicious abnormality in EITHER breast. There is no suspicious abnormality underlying the triangular palpable marker in the lower central LEFT breast. SONOGRAM FINDINGS: Targeted ultrasound examination was performed in the area of palpable abnormality in the LEFT breast at 6:00 5 cm from the nipple. There is no focal abnormal solid or cystic lesion suggestive of malignancy in the area of recent concern. Procedure Note Polly Ramesh MD - 02/28/2022 EXAMINATION: BILATERAL DIGITAL DIAGNOSTIC MAMMOGRAM INCLUDING CAD AND BILATERAL DIGITAL BREAST TOMOSYNTHESIS; LEFT BREAST SONOGRAM HISTORY: 47-year-old woman with BILATERAL diffuse breast tenderness for a couple of months. She also has a new palpable quarter-sized LEFT breast lump for one month, which was also palpated by her physician. COMPARISON: Multiple prior studies, most recently 11/09/2020 and dating back to 08/24/2014. TECHNIQUE: Full field digital mammographic views of BOTH breasts were performed, including computer aided detection (CAD) and BILATERAL digital breast tomosynthesis (DBT). Directed ultrasound evaluation of the LEFT breast was performed. BREAST PARENCHYMAL COMPOSITION: There are scattered areas of fibroglandular density. MAMMOGRAM FINDINGS: There is no new suspicious abnormality in EITHER breast. There is no suspicious abnormality underlying the triangular palpable marker in the lower central LEFT breast. SONOGRAM FINDINGS: Targeted ultrasound examination was performed in the area of palpable abnormality in the LEFT breast at 6:00 5 cm from the nipple. There is no focal abnormal solid or cystic lesion suggestive of malignancy in the area of recent concern. IMPRESSION: 1. No evidence of malignancy in EITHER breast. 2. No mammographic or sonographic correlate for area of clinical concern in the LEFT breast. In the absence of imaging findings, any decision for further intervention should be based on the clinical assessment. OVERALL FINAL ASSESSMENT: BI-RADS Category 1: Negative. RECOMMENDATION: 1. Annual screening mammography is recommended. 2. Clinical follow-up is recommended. Dictated by: Lilly Ramirez M.D. The radiology attending physician has personally reviewed this study, and had reviewed and/or edited this written report and agrees with it. Electronically signed by: Polly Ramesh M.D. Shabnam Graf MD PhD IMG MAMMO PROCEDURES Final Result * COLONOSCOPY (07/20/2020 9:05 AM BOTTOM LOADER) Anatomical Region Laterality Modality Other Narrative Procedure Note Fausto Delgado MD - 07/20/2020 9:05 AM CST [facility] Patient Name: Corrie Garcia Procedure Date: 07/20/2020 9:05 AM Date of : 1975 Admit Type: Outpatient Age: 45 Gender: Female Attending MD: Fausto Delgado M.D. Room: [facility] END[facility]COPY ROOM 3 Note Status: Finalized Procedure: Colonoscopy Indications: Suspected Crohn's disease of the small bowel andcolon Referring MD: Zina Davis M.D. Providers: Fausto Delgado M.D., Yadiel Bowles M.D. Medicines: Monitored Anesthesia Care Complications: No immediate complications. Estimated blood loss: Minimal. Estimated Blood Loss: Estimated blood loss was minimal. Procedure: Pre-Anesthesia Assessment: - Immediately prior to administration ofmedications, the patient was re-assessed for adequacy to receive sedatives. - The risks and benefits of the procedure and the sedation options and risks were discussed with the patient. All questions were answered and informed consent was obtained. The benefits, risks and alternatives of theprocedure and sedation were discussed and informed consentwas obtained. All questions were answered. Please referto the signed informed consent document in the medical record. The scope was passed under direct vision.The [id number] endoscope was introduced through the anus and advanced to 10 cm into the ileum. The colonoscopy was performed without difficulty. The patient tolerated the procedure well. The qualityof the bowel preparation was excellent. The bowel preparation used was Miralax via split dose instruction. Bowel prep was administered using asplit dose. Findings: The perianal and digital rectal examinations were normal. The Simple Endoscopic Score for Crohn's Disease was determined basedon the endoscopic appearance of the mucosa in the following segments: - Ileum: Findings include no ulcers present, no ulcerated surfaces,no affected surfaces and no narrowings. Segment score: 0. - Right Colon: Findings include no ulcers present, no ulcerated surfaces, no affected surfaces and no narrowings. Segment score: 0. - Transverse Colon: Findings include no ulcers present, no ulcerated surfaces, no affected surfaces and no narrowings. Segment score: 0. - Left Colon: Findings include no ulcers present, no ulceratedsurfaces, no affected surfaces and no narrowings. Segment score: 0. - Rectum: Findings include no ulcers present, no ulcerated surfaces,no affected surfaces and no narrowings. Segment score: 0. - Total SES-CD aggregate score: 0. Biopsies were taken with a cold forceps for histology. The retroflexed view of the distal rectum and anal verge was normaland showed no anal or rectal abnormalities. Impression: - Simple Endoscopic Score for Crohn's Disease: 0, mucosal inflammatory changes. Biopsied. - The distal rectum and anal verge are normal on retroflexion view. Recommendation: - Await pathology results. - MRE today. Attending Participation: I was present and participated during the entire procedure, including non-alonzo portions. Electronically signed by Fausto Delgado MD Fausto Delgado M.D. 07/20/2020 9:45:33 AM . Number of Addenda: 0 Note Initiated On: 07/20/2020 9:05 AM Recognized by the [employer] for promoting quality in endoscopy us Fausto Delgado MD ENDOSCOPY PROCEDURES Final Re sult from Last 3 Months or Most Recently Relevant to Health Maintenance [place] [facility] [place] [facility] AETNA MEDICARE GOLD Advance Directives For more information, please contact: [phone] * Full Code (Latest Code Status on File) Date Activated Date Inactivated Comments 07/20/2020 8:24 AM 07/20/2020 2:42 PM 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
--- OUTSIDE RECORDS SUMMARY | 2024-08-10 12:24 | XMS_ITS | Clinical Summary ---
Author Organization [facility] Address [address] [place], [place] [id number] Care Team Providers Care Supervisor Capacitor Processing Name Role Phone Morena Sprague DO Primary Care Provider [phone] Social History Tobacco Use Types Packs/Day Years Used Date Smoking Tobacco: Never Assessed Comments Unknown Sex and Gender Information Value Date Recorded Sex Assigned at Not on file Legal Sex Female 8:35 AM [employer] Gender Identity Not on file Sexual Orientation Not on file Plan of Treatment Health Maintenance Due Date Last Done Comments Cervical Cancer Screening Pa p Smear (Age 30 to 64) Every 3 Years 1975 Colorectal Cancer Screening Colonoscopy (10 Years) 1975 Annual Physical 02/26/1980 Hepatitis C 1995 DTaP, Tdap and Td Vaccines ( 1 - Tdap) 02/26/1996 Hepatitis B Vaccines (1 of 3 - 19+ 3-dose series) 02/26/1996 Cervical Cancer Screening Pa p with HPV Testing (Age 30 to 64) Every 5 Years 2007 Cervical Cancer Screening with HPV 2007 Mammogram Screening 2017 COVID-19 Vaccine (2023-2 5 season) 2024 Meningococcal B Vaccine Aged Out No l onger eligible based on patient's age to complete this topic Meningococcal Vaccine Aged Out No miguelito pardeep eligible based on patient's age to complete this topic Pneumococcal Vaccine: Pediat rics (0 to 5 Years) and At-Risk Patients (6 to 64 Years) Aged Out No longer eligible b ased on patient's age to complete this topic RSV Immunizations Under 20 Months Aged Out No longer eligible based on patient's age to complete this topic Insurance [facility] Care Teams Supervisor Capacitor Processing Relationship Specialty Start Date End Date Morena Sprague DO [address] [place] [address] PCP - General FAMILY PRACTICE 06/03/22
--- OUTSIDE RECORDS SUMMARY | 2024-08-10 12:24 | XMS_ITS | Clinical Summary ---
Author Organization [facility] Address [address] [place] [address] Care Team Providers Care Esthetician/Spa Coordinator Name Role Phone Morena Sprague DO Primary Care Provider [phone] Allergies Active Allergy Reactions Criticality Noted Date [...] AT BEDTIME NEEDED FOR 30 DAYS 02/26/20 025 Discontin ued(Thera py completed ) Ozempic 1 mg/dose (4 mg/3 mL) pen injector injection 04/18/20 025 Discontin ued(Alter phu therapy) hydroxychloroq uine (PLAQUENIL) 200 mg tablet TAKE 2 TABLETS (400MG) BY MOUTH EVERY DAY 05/10/20 025 Discontin ued(Thera py completed ) Zepbound 12.5 mg/0.5 mL pen injector INJECT 12.5MG SUBCUTANEOUSLY ONCE WEEKLY 05/20/19 025 Discontin ued(Alter phu therapy) Active Problems [...] implantable loop record er 02/18/2022 Overview (02/18/2022): Medtronic LINQ11 Loop Recorder. Dx; Syncope, Palpitations. DOI 02/11/2022- [place]. Brush remote f/u. Palpitations 02/06/2022 Syncope and collapse [...] w/r/t gut microbiome. Referred to ADA and [facility] websites for additional information on topics including [...] not improve, I recommend her seeing a collar setter or CRS. Anxiety and depression 08/04/2017 Panic [...] normal. Assessment & Plan (06/19/2020 3:56 PM BLOCK PRESS OPERATOR): She presents with extensive prior workup for [...] reflex an refer to rheumatology here at [facility] for second opinion on her joint issues. We will see her back in clinic after her endoscopies for further evaluation and to make decisions about potential treatments. Encounters Date Type Department Care Team Description 08/09/2024 7:45 AM CDT Ancillary Procedure [facility] Cardiology [address] [facility] [address] [place] [phone] Syncope and collapse; Palpitations 08/06/2024 7:54 AM CDT - 08/06/2024 11:59 PM CDT Hospital Encounter [facility]) [address] [place] [address] Discharge Disposition: Discharge to home or self care 08/06/2024 7:54 AM CDT - 08/06/2024 11:59 PM CDT Hospital Encounter [facility] ([facility]) [address] [place] [address] Chronic pain of right knee; History of arthroplasty of right knee Discharge Disposition: Discharge to home or self care 08/06/2024 7:54 AM CDT - 08/06/2024 11:59 PM CDT Hospital Encounter [facility] ([facility]) [address] [place] [address] Robert Gonzalez MD Chronic pain of right knee; History of arthroplasty of right knee Discharge Disposition: Discharge to home or self care 07/23/2024 7:00 AM CDT Ancillary Procedure [facility] [address] [facility] [address] [place] [phone] Status post placement of implantable loop recorder (Primary Dx); Syncope and collapse; Palpitations 07/22/2024 10:00 AM CDT Office Visit [facility] [address] [facility] [address] [place] [phone] Sue Guerrier NP Syncope and collapse; Orthostatic syncope; History of bariatric surgery; Lipid screening 07/22/2024 Telephone [facility] Cardiology [address] [facility] [address] [place] [phone] Shekhar Garcia MD 07/22/2024 Telephone [facility] Orthopedics and Sports Medicine [address] [facility] [address] [place] [phone] Omar Valenzuela PA 07/21/2024 Orders Only [facility] Orthopaedic Surgery [address] [facility] Medical Office Building [address] [place] [phone] Robert Gonzalez MD Chronic pain of right knee (Primary Dx); History of arthroplasty of right knee 07/19/2024 2:00 PM CDT Ancillary Procedure [facility] at [address] [phone] Chronic left shoulder pain 07/19/2024 2:00 PM CDT Office Visit [facility] Orthopedic and Sports Medicine [address] [place] [phone] Omar Valenzuela PA Chronic left shoulder pain (Primary Dx); Subdeltoid bursitis of left shoulder joint; Incomplete tear of left rotator cuff, unspecified whether traumatic; Arthritis of left acromioclavicular joint; Biceps tendinitis of left upper extremity 07/08/2024 Telephone [facility] Orthopedics and Sports Medicine [address] [place] [address] [address] [place] [phone] Roula Ledezma NP Appointment 06/28/2024 7:15 AM BLOCK PRESS OPERATOR Ancillary Procedure [facility] Cardiology [address] [place] [address] [address] [phone] Status post placement of implantable loop recorder (Primary Dx); Syncope and collapse; Palpitations 06/28/2024 Orders Only [facility] Cardiology [address] [place] [address] [address] [address] Shekhar Garcia MD Syncope and collapse (Primary Dx); Status post placement of implantable loop recorder 06/23/2024 Telephone [facility] [address] [facility] [address] [place] [phone] Parul Menon RN PMC Intake Assessment 06/21/2024 Orders Only [facility] Orthopaedic Surgery [address] [place] [address] Medical Office Building [address] [place] [phone] Robert Gonzalez MD Chronic pain of right knee (Primary Dx) 06/11/2024 9:15 AM BLOCK PRESS OPERATOR Office Visit [facility] Orthopedic and Sports Medicine [address] [place] [phone] Gamal Donahue MD Psoriatic arthritis (HCC) (Primary Dx); Subdeltoid bursitis of left shoulder joint; Incomplete tear of left rotator cuff, unspecified whether traumatic; Arthritis of left acromioclavicular joint 06/11/2024 Telephone [facility] Orthopedic and Sports Medicine [facility] [place] [phone] Gamal Donahue MD Surgical Clearance 06/10/2024 7:16 AM BLOCK PRESS OPERATOR - 06/10/2024 11:59 PM BLOCK PRESS OPERATOR Hospital Encounter [facility] [address] [place] [address] Jose Alberto Bridges MD Chronic pain of right knee Discharge Disposition: Discharge to home or self care 06/09/[address] [facility] [address] [place] [address] Albertina Loza B.A. 06/04/2024 7:45 AM BLOCK PRESS OPERATOR Office Visit [facility] Orthopaedic Surgery [address] [facility] Advanced Medicine 6th [place] [address] [place] [address] Robert Gonzalez MD Chronic pain of right knee (Primary Dx) 06/04/2024 7:15 AM BLOCK PRESS OPERATOR - 06/04/2024 11:59 PM BLOCK PRESS OPERATOR Hospital Encounter [facility]) [address] [place] [address] Chronic pain of right knee Discharge Disposition: Discharge to home or self care 06/02/2024 3:50 PM BLOCK PRESS OPERATOR [facility] [address] [place] [address] Acute knee pain, unspecified laterality 06/02/2024 Orders Only [facility] Orthopaedic Surgery [address] [facility] Medical Office Building [address] [place] [phone] Robert Gonzalez MD Chronic left shoulder pain (Primary Dx); Acute knee pain, unspecified laterality 05/17/2024 9:00 AM BLOCK PRESS OPERATOR Ancillary Procedure [facility] Cardiology [address] [facility] [address] [address] Status post placement of implantable loop recorder (Primary Dx); Syncope and collapse; Palpitations from Last 3 Months Immunizations Immunization Administration Dates Next Due Influenza, Live, Intranasal, Quadrivalent 2014 Influenza, Quadrivalent, Soledad l Culture-based MDCK, Antibiotic Free, Intramuscular 02/19/2018 Influenza, Quadrivalent, Split, Intramuscular ,02/10/2016 Influenza, Quadrivalent, Spl it, Preservative Free, Intramuscular 02/10/2020 Influenza, Trivalent, IM (MDV) 02/09/2017 Influenza, Trivalent, Preservative Free, Intramu scular 02/19/2018 Influenza, Unspecified 12/19/2022,03/14/2014 MMR 03/06/2016 Surgical History Surgery Date Site/Laterality Comments GASTRIC BYPASS 05/12/2014 - 05/11/2015 CHOLECYSTECTOMY 05/12/2004 - 05/11/2005 ARTHROSCOPIC SURGERY 05/12/2006 - 05/11/2007 knee KNEE SURGERY GALLBLADDER SURGERY OTHER SURGICAL HISTORY removal of thyroid tumor HYSTERECTOMY 05/12/2018 - 05/11/2019 CYSTOCELE REPAIR 05/12/2018 - 05/11/2019 RECTOCELE REPAIR BREAST SURGERY 05/12/2019 - 05/11/2020 BARIATRIC SURGERY 05/12/2014 - 05/11/2015 BLADDER SURGERY 05/12/2018 - 05/11/2019 NM ARTHRP KNE CONDYLE&PLATU MEDIAL&LAT COMPARTMENTS 03/15/2020 Left [place] - [place] KNEE ARTHROSCOPY ABDOMINAL SURGERY SKIN BIOPSY Medical History Medical History Date Comments Sleep apnea Proctitis Osteoarthritis Fibromyalgia Interstitial cystitis Rectocele Cystocele with rectocele Fibromyalgia, primary Pelvic floor dysfunction Joint pain Incontinence GERD (gastroesophageal reflux disease) Depression Anxiety 2010 Autoimmune disease 2020 Motion sickness Ankylosing spondylitis (HCC) Essential hypertension 10/23/2021 Family History Medical History Relation Name Comments Depression Brother Nile Hyperlipidemia Brother Nile Hypertension Brother Nile Obesity Brother Nile Substance Abuse Brother Nile overweight Brother Nile Alcohol abuse Father Carlin Heart disease Father Carlin Hyperlipidemia Father Carlin Hypertension Father Carlin Hyperthyroidism Father Carlin overweight Father Carlin Skin cancer Father's Brother Lung cancer Maternal Grandfather Breast cancer Mother Ruby Depression Mother Ruby Heart disease Mother Ruby Hyperlipidemia Mother Ruby Hypertension Mother Ruby Ulcerative colitis Mother Ruby Uterine cancer Mother Ruby overweight Mother Ruby Lung cancer Paternal Grandfather Lung cancer Paternal Grandmother Stomach cancer Paternal Grandmother Uterine cancer Paternal Grandmother Relation Name Status Comments Brother Nile Father Carlin Alive Father's Brother Maternal Grandfather Mother Ruby Alive Paternal Grandfather Paternal Grandmother Social History Tobacco Use Types Packs/Day Years [...] on file Legal Sex Female 2:20 AM BLOCK PRESS OPERATOR Gender Identity Female 08/21/2020 9:29 PM CDT Sexual Orientation Straight 08/21/2020 9: 29 PM CDT 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 on file Not on file Not on rudy e Obstetrics History Para Term AB IAB SAB Ectopic Multiple Livin g Live Births 4 2 2 2 2 2 2 Date Outcome GA Total Labor Labor/2nd/3rd Weight Sex Type Anes PTL Alley A1 A5 Name Clin Term Vag-S pont Living Term Vag-S pont Living SAB SAB Last Filed Vital Signs Vital Sign Reading [...] 07/22/2024 10:11 AM CDT Plan of Treatment Health Maintenance Due Date Last Done Comments Depression Screening 1975 Hepatitis C Screening 1975 DTaP/Tdap/Td Vaccine (1 - Tdap) 02/26/1988 Hepatitis B Screening 1995 Regular Well Visit/Exam 18-64 1995 Breast Cancer Screening-Mammogram 02/28/2023 02/28/2022, 02/28/2022, 11/09/2020, Additional history exists Covid-19 Vaccine ( season) 2024 01/01/2021, 08/05/2020, 07/11/2020 Influenza Vaccine (Season Ended) 2025 12/19/2022, 02/10/2020, 02/09/2019, Additional history exists Colon Cancer Screening-Colonoscopy 07/20/2030 07/20/2020 Pneumococcal vaccine <65 Aged Out No longer eligible based on patient's age to complete this topic Procedures Procedure Name Priority Date/Time Associated Diagnosis [...] CHECK - REMOTE Routine 06/28/2024 10:11 AM BLOCK PRESS OPERATOR Syncope and collapse Palpitations CELL COUNT W/REFLEX DIFFERENTIAL, BODY FLUID Routine 06/10/2024 10:50 AM BLOCK PRESS OPERATOR Chronic pain of right knee CELL DIFFERENTIAL, BODY FLUID Routine 06/10/2024 10:50 AM BLOCK PRESS OPERATOR CRYSTAL ANALYSIS, BODY FLUID Routine 06/10/2024 10:50 AM BLOCK PRESS OPERATOR Chronic pain of right knee MYCOLOGY (FUNGAL) CULTURE AND STAIN Routine 06/10/2024 8:37 AM BLOCK PRESS OPERATOR MYCOBACTERIOLOGY AFB CULTURE AND ACID-FAST STAIN Routine 06/10/2024 8:37 AM BLOCK PRESS OPERATOR AEROBIC AND ANAEROBIC CULTURE AND GRAM STAIN Routine 06/10/2024 8:37 AM BLOCK PRESS OPERATOR US GUIDED ARTHROCENTESIS MAJOR JOINT Schedule Routine, Read Routine (OP Routine) 06/10/2024 8:22 AM BLOCK PRESS OPERATOR Chronic pain of right knee XR KNEE RIGHT 4 OR MORE VIEWS Schedule Routine, Read Routine (OP Routine) 06/04/2024 7:31 AM BLOCK PRESS OPERATOR Chronic pain of right knee CRP (ACUTE PHASE) Routine 06/02/2024 3:5 5 PM BLOCK PRESS OPERATOR Acute knee pain, unspecified laterality ERYTHROCYTE SEDIMENTATION RATE Routine 06/02/2024 3:55 PM BLOCK PRESS OPERATOR Acute knee pain, unspecified laterality DEVICE CHECK - REMOTE Routine 05/24/2024 2:20 PM BLOCK PRESS OPERATOR Syncope and collapse Palpitations DIAGNOSTIC MAMMOGRAM BILATERAL W JAVAN Schedule Routine, Read Routine (OP Routine) 02/28/2022 11:30 AM CDT Mass of breast, unspecified laterality COLONOSCOPY 07/20/2020 9:05 AM BLOCK PRESS OPERATOR from Last 3 Months or Most Recently [...] Modality Other Narrative 07/23/2024 3:38 PM CDT [employer] LINQ11 Loop Recorder. Dx; Syncope, Palpitations. DOI 02/11/2022-Jose. Carelink remote f/u. Unscheduled ILR remote due [...] RN Shekhar Garcia MD [facility] Final Result * POCT lipid panel (07/22/2024 10:16 AM CDT) Cholesterol, POC 224 mg/dL HDL, POC 83 mg/dL Triglycerides, POC 87 mg/dL LDL Cholesterol POC 124 mg/dL Chol/HDL Ratio, POC 1.5 Non-HDL Cholesterol, POC 141 mg/dL Cholesterol Total, POC 224 mg/dL Capillary blood 07/22/2024 1 0:16 AM CDT Result [facility] Sue Guerrier NP POINT OF CARE TEST ORDERA BLES [...] chronic changes over the greater tuberosity. Result [facility] Omar ARVIZU IMG XR PROCEDURES Final Res ult * DEVICE CHECK - REMOTE (06/28/2024 10:11 AM BLOCK PRESS OPERATOR) Anatomical Region Laterality Modality Other Narrative 07/01/2024 4:00 PM BLOCK PRESS OPERATOR [employer] LINQ11 Loop Recorder. Dx; Syncope, Palpitations. DOI 02/11/2022-Linh. Carelink remote f/u. Routine ILR remote. Normal device function. Battery function-Good. Presenting rhythm: VS, regular 70 bpm. Medications: no cardiac meds noted. Counters since last scheduled transmission on 05/17/2024. No auto or patient recorded episodes noted. See scanned report. Carelink remote f/u 08/09/2024. Nicole Gamez, FLORIDALMA Result [facility] Shekhar Garcia MD [facility]RICIA Final Result * Crystal Analysis, Body Fluid (06/10/2024 10:50 AM BLOCK PRESS OPERATOR) Specimen type, fld Synovial Crystals None Seen None Seen [facility] Fluid 06/10/2024 10:5 0 AM BLOCK PRESS OPERATOR 06/10/2024 12:14 PM BLOCK PRESS OPERATOR Result [facility] Robert Gonzalez MD LAB BODY FLUIDS AND STOOLS ORDERABLES Final Result Performing Organization Address [facility] Co de Phone Number [facility] [place] [address] * Cell Differential, Body Fluid (06/10/2024 10:50 AM BLOCK PRESS OPERATOR) Total cells diffed 100 cells Comment: Interpretive Data Unless otherwise specified, the reference range and other method performance specifications have not been established for CSF/Body Fluid tests. The test results should be integrated into the clinical context for interpretation. Current interpretive data was last revised on 2018. Neutrophils, fld 10 % [facility] Lymphs, fld 35 % [facility] Monocyte, fld 34 % [facility] Eosinophils, fld 1 % [facility] Macrophages, fld 18 % [facility] Synovial cells, fld 2 % [facility] Specimen type, fld Synovial [facility] Fluid 06/10/2024 10:5 0 AM BLOCK PRESS OPERATOR 06/10/2024 12:14 PM BLOCK PRESS OPERATOR Jose Alberto Bridges MD LAB BODY FLUIDS AND STOO LS ORDERABLES Final Result Performing Organization Address [facility] de Phone Number [facility] Department [place] [address] * (ABNORMAL) Cell count w/rflx diff, body fluid (06/10/2024 10:50 AM BLOCK PRESS OPERATOR) Specimen type, fld Synovial Color, fld Red [facility]ER [facility] Clarity, fld Cloudy(A) Clear [facility] Nucleated cells, fld 409 /cumm C[facility] Comment: Interpretive Data Unless otherwise specified, the reference range and other method performance specifications have not been established for CSF/Body Fluid tests. The test results should be integrated into the clinical context for interpretation. Current interpretive data was last revised on 2018. RBC, fld 38,567 /cumm [facility] Fluid 06/10/2024 10:5 0 AM BLOCK PRESS OPERATOR 06/10/2024 12:14 PM BLOCK PRESS OPERATOR Jose Alberto Bridges MD LAB BODY FLUIDS AND STOO LS ORDERABLES Final Result Performing Organization Address [facility] Co de Phone Number [facility] [place] [address] * Mycology (fungal) culture and stain Aspirate Knee, right (06/10/2024 8:37 AM BLOCK PRESS OPERATOR) Direct Specimen Exam Stain: No Fungal elements seen. Report Final Report: No growth of fungus [facility] Aspirate (Knee, right) 06/10/2024 8:37 AM BLOCK PRESS OPERATOR 06/10/2024 11:33 AM BLOCK PRESS OPERATOR Narrative [facility] - 07/08/2024 7:25 AM BLOCK PRESS OPERATOR Right Knee Aspiration Fluid specimen received in sterile syringe. Testing performed by [facility] ([phone]). Robert Gonzalez MD LAB MICROBIOLOGY - G ENERAL ORDERABLES Final Result Performing Organization Address [facility] de Phone Number [facility] [place] [address] * Mycobacteriology (AFB) culture and acid-fast stain Aspirate Knee, right (06/10/2024 8:37 AM BLOCK PRESS OPERATOR) Direct Specimen Exam Stain: No Acid-fast bacilli seen Report Final Report: No growth of acid-fast bacilli [facility] Aspirate (Knee, right) 06/10/2024 8:37 AM BLOCK PRESS OPERATOR 06/10/2024 11:33 AM BLOCK PRESS OPERATOR Narrative [facility] - 08/09/2024 2:25 PM CDT Right Knee Aspiration Fluid specimen received in sterile syringe. Testing performed by [facility] ([phone]). Robert Gonzalez MD LAB MICROBIOLOGY - G ENERAL ORDERABLES Final Result Performing Organization Address City/[facility] Co de Phone Number [facility] Department [place] [address] * Aerobic and anaerobic culture and gram stain Aspirate Knee, right (06/10/2024 8:37 AM BLOCK PRESS OPERATOR) Direct Specimen Exam Stain: No polymorphonuclear leukocytes seen. No organisms seen. Report Final Report: No growth [facility] Aspirate (Knee, right) 06/10/2024 8:37 AM BLOCK PRESS OPERATOR 06/10/2024 11:33 AM BLOCK PRESS OPERATOR Narrative [facility] - 06/15/2024 11:24 AM BLOCK PRESS OPERATOR Right Knee Aspiration Fluid specimen received in sterile syringe. Testing performed by [facility] ([phone]) Specimens submitted from normally sterile body sites [...] Robert Gonzalez MD LAB MICROBIOLOGY - [facility] [place] ORDERABLES Final Result [facility] [place] [address] * US Guided Aspiration or Injection of Major Joint (06/10/2024 8:22 AM BLOCK PRESS OPERATOR) Anatomical Region Laterality Modality Entire body N/A Radio Fluoroscop y 06/10/2024 10:5 9 AM BLOCK PRESS OPERATOR Impressions 06/10/2024 11:32 AM BLOCK PRESS OPERATOR Left knee joint aspiration under ultrasound guidance. 5 mL clear red fluid was aspirated and sent for cell count, crystal evaluation, Gram stain, and culture. Dictated by: Jason Gold MD The radiology attending physician has personally reviewed this study, and had reviewed and/or edited this written report and agrees with it. Electronically signed by: Jose Alberto Bridges M.D. Narrative 06/10/2024 11:32 AM BLOCK PRESS OPERATOR EXAMINATION: Right knee joint aspiration under ultrasound [...] was obtained. Prior to beginning the procedure, [place] Protocol was performed to confirm the patient's [...] was obtained. Prior to beginning the procedure, [place] Protocol was performed to confirm the patient's [...] with it. Electronically signed by: Jose Alberto Bridegs M.D. us Robert Gonzalez MD IMG US PROCEDURES Fi nal Result * XR Knee Right 4 or More Views (06/04/2024 7:31 AM BLOCK PRESS OPERATOR) Anatomical Region Laterality Modality Lower Extremities, Knee Right Computed Radiography 06/04/2024 8:41 AM BLOCK PRESS OPERATOR Impressions 06/04/2024 8:41 AM BLOCK PRESS OPERATOR 1. New total right knee arthroplasty in near-anatomic position with neutral mechanical axis. Electronically signed by: Seb Farris M.D. Narrative 06/04/2024 8:41 AM BLOCK PRESS OPERATOR EXAMINATION: XR KNEE RIGHT 4 OR MORE VIEWS HISTORY: Right knee arthroplasty FINDINGS: 4 view examination of the right knee is read with comparison to 02/21/2021. There is a new total right knee arthroplasty in near-anatomic position. No periprosthetic fracture or component migration. There is a small joint effusion. There is neutral mechanical axis on the right. Procedure Note Ambrocio Farris, Seb Powell MD - 06/04/2024 EXAMINATION: XR KNEE RIGHT [...] by: Seb Farris M.D. Robert Gonzalez MD IMG XR PROCEDURES Fi nal Result * (ABNORMAL) Erythrocyte sedimentation rate (06/02/2024 3:55 PM BLOCK PRESS OPERATOR) Erythrocyte sedimentation rate 74(H) 1 - 20 mm/hr Blood 06/02/2024 3:55 PM BLOCK PRESS OPERATOR 06/02/2024 4:32 PM BLOCK PRESS OPERATOR Robert Gonzalez MD LAB BLOOD ORDERABLES Final Result Performing Organization Address City/[facility]/ZIP Co de Phone Number [facility] [address] [place] [place] [address] * (ABNORMAL) CRP (acute phase) (06/02/2024 3:55 PM BLOCK PRESS OPERATOR) CRP 24.2(H) <=10.0 mg/L Blood 06/02/2024 3:55 PM BLOCK PRESS OPERATOR 06/02/2024 4:32 PM BLOCK PRESS OPERATOR Robert Gonzalez MD LAB BLOOD ORDERABLES Final Result [facility] [address] [place] [place] [address] * DEVICE CHECK - REMOTE (05/24/2024 2:20 PM BLOCK PRESS OPERATOR) Anatomical Region Laterality Modality Other Narrative 06/10/2024 4:20 PM BLOCK PRESS OPERATOR [employer] REVEAL LinQ II implanted February 11, 2022 [...] Continue to monitor remotely. Vinod Bates Device Etl Architect us Shekhar [place] MD [facility] Final Result * Diagnostic Mammogram Bilateral W [...] agrees with it. Electronically signed by: Polly Byron Ramesh, M.D. us Shabnam Graf MD PhD IMG MAMMO PROCEDURES Final Result * COLONOSCOPY (07/20/2020 9:05 AM BLOCK PRESS OPERATOR) Anatomical Region Laterality Modality Other Narrative Procedure Note Fausto Delgado MD - 07/20/2020 9:05 AM CST [facility] Patient Name: Corrie Garcia Procedure Date: 07/20/2020 9:05 AM Date of : 1975 Admit Type: Outpatient Age: 45 Gender: Female Attending MD: Fausto Delgado M.D. Room: [facility] ENDOSCOPY ROOM 3 Note Status: Finalized Procedure: [...] The scope was passed under direct vision.The [id number] endoscope was introduced through the anus [...] On: 07/20/2020 9:05 AM Recognized by the [employer] Of [place] [employer] G[employer] for promoting quality in endoscopy Fausto Delgado MD ENDOSCOPY PROCEDURES Final Re sult from Last 3 Months or Most Recently Relevant to Health Maintenance Insurance [employer] ID AETNA MEDICARE GOLD [employer] ID AETNA MEDICARE GOLD [facility] AETNA MEDICARE GOLD Advance Directives For more information, please contact: [phone] * Full Code (Latest Code Status on File) Date Activated Date Inactivated Comments 07/20/2020 8:24 AM 07/20/2020 2:42 PM Care Teams Esthetician/Spa Coordinator Relationship Specialty Start Date End Date Morena Sprague DO PCP - General Family Medicine 03/13/21
--- OUTSIDE RECORDS SUMMARY | 2024-08-10 12:24 | XMS_ITS | Encounter Summary ---
Author Organization [facility] Address [address] [place] [address] Care Team Providers Care Regional Cra Name Role Phone Morena Sprague DO Primary Care Provider +1- [phone] Reason for Visit * Cardiology (Routine) - Closed Specialty Diagnoses / Procedures Referred By Contac t Referred To Contact Diagnoses Syncope and collapse Palpitations Procedures DEVICE CHECK - REMOTE Shekhar Garcia MD [address] [place] [address] Phone: tel: fax: [facility] Referral ID Status Reason Start Date Expiration Date Visits Re quested Visits Authorized [id number] Closed 03/29/2024 09/26/2025 1 1 Encounter Details Date Type Department Care Team (Latest Contact Info) Description 08/09/2024 7:45 AM CDT Ancillary Procedure [facility] Cardiology [address] [place] [id number] Syncope and collapse; Palpitations Social History Tobacco Use Types Packs/Day Years Used Date Smoking Tobacco: Former Cigarettes 1 5 0 05/12/1996 - 05/12/2001 Smokeless Tobacco: Never Alcohol Use Standard Drinks/Week Comments Yes 0 [...] on file Legal Sex Female 2:20 AM CLIENT SUPPORT COORDINATOR Gender Identity Female 08/21/2020 9:29 PM CDT Sexual Orientation Straight 08/21/2020 9: 29 PM CDT 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
--- OUTSIDE RECORDS SUMMARY | 2024-08-10 12:24 | XMS_ITS | Patient Health Record ---
Author Organization [facility] By [facility] Address [address] [place] [address] Care Team Providers Care Manager Review Name Role Phone Poonamsusijim Remedios PLUNKETTna Primary Care Provider Unavailab Aaron eLvy Unavailable [phone] Migration, Provider Unavailable Unavailable Allergies Allergen (clinical drug ingredient) Drug/Non Drug Allergy documented on EMR Reaction Allergy Type Onset Date Status Substance with penicillin structure and antibacterial mechanism of action (substance) Penicillins Unknown Drug Allergy 07/14/2023 Active Reason For Referral No Information Medications Medication SIG (Take, Route, Frequency, Duration) Notes Start Date End Date Status rOPINIRole HCl 1 MG 1 tablet Oral twice a day for 90 days Active Gabapentin 600 MG Oral 09/24/2023 A ctive Divalproex Sodium ER 500 MG TAKE 1 TABLET TWICE A DAY BY ORAL ROUTE FOR 90 DAYS. for 90 Active traMADol HCl 50 MG Oral 09/24/2023 Active sulfaSALAzine 500 MG Oral 09/24/2023 Active Multivitamin - 1 tablet Orally Once a day Active OptiChamber Cher MISCELLANEOUS 09/24/2023 Active Triamcinolone Acetonide 0.1% External 09/24/2023 Active azaTHIOprine 50 MG Oral 09/24/2023 Active rOPINIRole HCl 1 MG TAKE 1 TABLET BY MOUTH TWICE A DAY for 90 Active Doxepin HCl 10 MG 1 capsule at bedtime Oral Once a day for 90 days Active Famotidine 40 MG Oral 09/24/2023 Ac tive ARIPiprazole 10 MG 1 tablet Oral Once a day for 90 days Active Depakote ER 500 MG Oral 09/24/2023 Active DULoxetine HCl 60 MG 1 capsule Oral twic e a day for 90 days Active ZEPBOUND 2.5 MG/0.5 ML SUBCUTANEOUS PEN INJECTOR *Reorder from [employer] for eRx and Interaction Alerts* 09/24/2023 Active Vitamin B Complex - as directed Orally Active Iron 325 (65 Fe) MG 1 tablet Orally Three times a Week Active BUDESONIDE-FORMOTERO L HFA 80 MCG-4.5 MCG/ACTUATION AEROSOL INHALER *Reorder from [employer] for eRx and Interaction Alerts* 09/24/2023 Active Vitamin D 25 MCG (1000 UT) 1 tablet Orally Once a day Active Methocarbamol 500 MG Oral 09/24/2023 Active Omeprazole 40 MG Oral 09/24/2023 Ac tive Immunizations Vaccine Route Administration Date Status Comme nts Influenza virus vaccine, quadrivalent (IIV4), split virus, 0.25 mL dosage Unknown 03/12/2015 Administered Influenza virus vaccine, quadrivalent (IIV4), split virus, 0.25 mL dosage Unknown 02/10/2016 Administered Influenza virus vaccine, quadrivalent (IIV4), split virus, 0.25 mL dosage Unknown 02/09/2019 Administered Influenza, injectable, MDCK, preservative free Unknown 02/19/2018 Administered Influenza, seasonal, injecta ble, preservative free, 3 yrs and above Unknown 02/09/2017 Administered MMR Unknown 03/06/2016 Administered Novel [id number], preservative free Unknown 02/10/2020 Administered Pfizer Biontech Covid-19 Vac cine 2nd dose Unknown 07/11/2020 Administered Pfizer [employer] Covid-19 Vac cine 2nd dose Unknown 08/05/2020 Administered Pfizer [employer] Covid-19 Vac cine 2nd dose Unknown 01/01/2021 Administered Pfizer [employer] Covid-19 Vac cine 2nd dose Unknown 02/12/2022 Administered Social History Sex Assigned At : Social History Observation Description Sex Assigned At Female Problems Problem Type SNOMED Code ICD Code Onset Dates Problem Status W/U Status Risk Notes Problem Mild recurrent major depression (89294068) Major depressive disorder, recurrent, mild (F33.0) Active confirmed Problem Generalized anxiety disorder (38176258) Generalized anxiety disorder (F41.1) Active confirmed Problem Restless legs syndrome (69946633) Restless legs syndrome (G25.81) Active confirmed Problem Insomnia (463072502) Other insomnia (G47.09) Active confirmed Vital Signs Height-cm 175.26 cm 06/16/2024 Height 69.00 in 06/16/2024 Encounters Encounter Location Date Provider Diagnosis [place] [id number] [facility] [address] [address] 09/24/2023 Aaron Longoza Restless legs syndrome G25.81 ; Major depressive disorder, recurrent, moderate F33.1 ; Major depressive disorder, recurrent, mild F33.0 ; Generalized anxiety disorder F41.1 ; Obstructive sleep apnea (adult) (pediatric) G47.33 and Other insomnia G47.09 [place] [id number] [facility] [address] [address] 12/24/2023 Aaron Pop Generalized anxiety disorder F41.1 ; Major depressive disorder, recurrent, mild F33.0 ; Other insomnia G47.09 and Restless legs syndrome G25.[address] [address] 06/16/2024 Aaron Longoza Generalized anxiety disorder F41.1 ; Major depressive disorder, recurrent, mild F33.0 ; Other insomnia G47.09 ; Restless legs syndrome G25.81 and Major depressive disorder, recurrent severe without psychotic features 296.[address] [address] 09/24/2023 Provider Migration [address] [address] 09/27/2023 Provider Migration [address] [address] 09/28/2023 Provider Migration [place] [address] [address] 03/19/2024 Aaron Pop Major depressive disorder, recurrent, mild F33.[address] [address] 03/19/2024 Aaron Pop Assessments Encounter Date Diagnosis (ICD Code) Assessment Notes Treatment Notes Treatment Clinical Notes Section Notes 09/24/2023 Major depressive disorder, recurrent, mild (ICD-10 - F33.0) 09/24/2023 Major depressive disorder, recurrent, moderate (ICD-10 - F33.1) 09/24/2023 Generalized anxiety disorder (ICD-10 - F41.1) 09/24/2023 Restless legs syndrome (ICD-10 - G25.81) 09/24/2023 Other insomnia (ICD-10 - G47.09) 09/24/2023 Obstructive sleep apnea (adult) (pediatric) (ICD-10 - G47.33) 12/24/2023 Major depressive disorder, recurrent, mild (ICD-10 - F33.0) Cymbalta 60mg bid, abilify 10mg daily 1. Insomnia - Patient reports sleeping only 1-3 hours per night, possibly due to pain or insomnia. - Currently taking Doxepin 10 mg at bedtime. Plan: - Continue Doxepin 10 mg at bedtime. - Monitor response to pain management and rheumatology treatments for potential impact on sleep. 2. Generalized Anxiety Disorder - Patient reports feeling good and not taking Lorazepam or Hydroxyzine. - Reports trouble concentrating and feeling overstimulated, but not anxious. Plan: - No changes to current medications. - Monitor for any changes in anxiety symptoms. 3. Major Depressive Disorder - Patient reports feeling fine, no depression or irritability. - Currently taking Cymbalta 60 mg twice a day and Abilify 10 mg once a day. Plan: - Continue Cymbalta 60 mg twice a day and Abilify 10 mg once a day. - Monitor for any changes in mood symptoms. 4. Pain Management - Patient referred to [facility] for pain management. - Currently taking Tramadol, Gabapentin, and Ropinirole. Plan: - Continue current pain medications. - Follow up with pain management and rheumatology for further evaluation and treatment. 5. Vitamins and Supplements - Patient taking a multivitamin, iron supplement, vitamin D, and B-complex. Plan: - Continue current vitamins and supplements. - Monitor for any changes in overall health. Follow-up: - Schedule a follow-up appointment in three months. 12/24/2023 Generalized anxiety disorder (ICD-10 - F41.1) stable 1. Insomnia - Patient reports sleeping only 1-3 hours per night, possibly due to pain or insomnia. - Currently taking Doxepin 10 mg at bedtime. Plan: - Continue Doxepin 10 mg at bedtime. - Monitor response to pain management and rheumatology treatments for potential impact on sleep. 2. Generalized Anxiety Disorder - Patient reports feeling good and not taking Lorazepam or Hydroxyzine. - Reports trouble concentrating and feeling overstimulated, but not anxious. Plan: - No changes to current medications. - Monitor for any changes in anxiety symptoms. 3. Major Depressive Disorder - Patient reports feeling fine, no depression or irritability. - Currently taking Cymbalta 60 mg twice a day and Abilify 10 mg once a day. Plan: - Continue Cymbalta 60 mg twice a day and Abilify 10 mg once a day. - Monitor for any changes in mood symptoms. 4. Pain Management - Patient referred to [facility] for pain management. - Currently taking Tramadol, Gabapentin, and Ropinirole. Plan: - Continue current pain medications. - Follow up with pain management and rheumatology for further evaluation and treatment. 5. Vitamins and Supplements - Patient taking a multivitamin, iron supplement, vitamin D, and B-complex. Plan: - Continue current vitamins and supplements. - Monitor for any changes in overall health. Follow-up: - Schedule a follow-up appointment in three months. 03/19/2024 Major depressive disorder, recurrent, mild (ICD-10 - F33.0) 06/16/2024 Generalized anxiety disorder (ICD-10 - F41.1) stable 06/16/2024 Major depressive disorder, recurrent, mild (ICD-10 - F33.0) Cymbalta 60mg bid, abilify 10mg daily 12/24/2023 Other insomnia (ICD-10 - G47.09) Doxepin 10mg hs 1. Insomnia - Patient reports sleeping only 1-3 hours per night, possibly due to pain or insomnia. - Currently taking Doxepin 10 mg at bedtime. Plan: - Continue Doxepin 10 mg at bedtime. - Monitor response to pain management and rheumatology treatments for potential impact on sleep. 2. Generalized Anxiety Disorder - Patient reports feeling good and not taking Lorazepam or Hydroxyzine. - Reports trouble concentrating and feeling overstimulated, but not anxious. Plan: - No changes to current medications. - Monitor for any changes in anxiety symptoms. 3. Major Depressive Disorder - Patient reports feeling fine, no depression or irritability. - Currently taking Cymbalta 60 mg twice a day and Abilify 10 mg once a day. Plan: - Continue Cymbalta 60 mg twice a day and Abilify 10 mg once a day. - Monitor for any changes in mood symptoms. 4. Pain Management - Patient referred to [facility] for pain management. - Currently taking Tramadol, Gabapentin, and Ropinirole. Plan: - Continue current pain medications. - Follow up with pain management and rheumatology for further evaluation and treatment. 5. Vitamins and Supplements - Patient taking a multivitamin, iron supplement, vitamin D, and B-complex. Plan: - Continue current vitamins and supplements. - Monitor for any changes in overall health. Follow-up: - Schedule a follow-up appointment in three months. 06/16/2024 Other insomnia (ICD-10 - G47.09) Doxepin 10mg hs 12/24/2023 Restless legs syndrome (ICD-10 - G25.81) ropinirole 1mg hs 1. Insomnia - Patient reports sleeping only 1-3 hours per night, possibly due to pain or insomnia. - Currently taking Doxepin 10 mg at bedtime. Plan: - Continue Doxepin 10 mg at bedtime. - Monitor response to pain management and rheumatology treatments for potential impact on sleep. 2. Generalized Anxiety Disorder - Patient reports feeling good and not taking Lorazepam or Hydroxyzine. - Reports trouble concentrating and feeling overstimulated, but not anxious. Plan: - No changes to current medications. - Monitor for any changes in anxiety symptoms. 3. Major Depressive Disorder - Patient reports feeling fine, no depression or irritability. - Currently taking Cymbalta 60 mg twice a day and Abilify 10 mg once a day. Plan: - Continue Cymbalta 60 mg twice a day and Abilify 10 mg once a day. - Monitor for any changes in mood symptoms. 4. Pain Management - Patient referred to [facility] for pain management. - Currently taking Tramadol, Gabapentin, and Ropinirole. Plan: - Continue current pain medications. - Follow up with pain management and rheumatology for further evaluation and treatment. 5. Vitamins and Supplements - Patient taking a multivitamin, iron supplement, vitamin D, and B-complex. Plan: - Continue current vitamins and supplements. - Monitor for any changes in overall health. Follow-up: - Schedule a follow-up appointment in three months. 06/16/2024 Restless legs syndrome (ICD-10 - G25.81) ropinirole 1mg hs 06/16/2024 Major depressive disorder, recurrent severe without psychotic features (ICD9-CM - 296.33) 06/16/2024 Other 1. Depression: - Patient reports no concerns with depression and is feeling great. - Continue duloxetine 60 mg twice a day. - Continue aripiprazole 10 mg daily. Plan: - Follow up in 4 months or sooner if needed. 2. Anxiety: - Patient reports no concerns with anxiety and is feeling great. Plan: - No changes needed in the current treatment plan. - Follow up in 4 months or sooner if needed. 3. Insomnia: - Patient reports improvement in sleep but has had recent difficulty due to pain. - Continue doxepin 10 mg for insomnia. Plan: - Follow up in 4 months or sooner if needed. 4. Restless Legs Syndrome: - Patient reports no problems with current medication. - Continue ropinirole 1 mg twice a day. Plan: - Follow up in 4 months or sooner if needed. 5. Chronic Pain: - Patient reports ongoing pain issues, including a partially torn rotator cuff and issues with the right knee after knee replacement. - Pain management is being addressed by a pain specialist, who has taken over the prescription of gabapentin and increased the dosage. - Patient is awaiting approval for Taltz and has had a successful ablation on the back. Plan: - Continue to monitor and coordinate care with the pain specialist. 6. Medication Refills: Plan: - Refill all current medications for 90 days. - Send prescriptions to [facility] pharmacy. Follow-up: - Schedule a follow-up appointment in 4 months. - Patient will schedule the appointment through the [employer] maura. - Encourage the patient to reach out via the maura if any concerns arise before the next appointment. Plan Of Treatment No Information Insurance Providers Payer Name Payer Address Payer Phone Subscriber Number Group Number Insured Name Patient Relationship to Insured Coverage Start Date Coverage End Date [employer] [employer] [address] [place] [address] [id number] ANNABELLA MUKHERJEE Spouse - patient is the spouse of the insured Aettoy [address] [place] [address] [id number] ESCALANTE Self - patient is the insured Medical (General) History Surgical History Surgery Date(Month/Year) Removal of gallbladder (66910) 5 Endometrial ablation (395583004) 009 Endometrial ablation (15269) 05/12/2014 Hysterectomy (11771) 10/14/2018 Total knee replacement ([id number]) left 03/16/2020 Breast surgery (56257) 04/20/2019
--- OUTSIDE RECORDS SUMMARY | 2024-08-10 12:24 | XMS_ITS | Encounter Summary ---
Author Organization [facility] Address [address] [place] [address] Phone Care Team Providers Care Metal Sprayer Machined Parts Name Role Phone Morena Sprague DO Primary Care Provider [phone]- [phone] Encounter Details Date Type Department Care Team (Latest Contact Info) Description 06/03/2022 Orders Only [facility] Scanning, Provider Social History Tobacco Use Types Packs/Day Years Used Date Smoking Tobacco: Former Cigarettes 1 5 0 05/12/1996 - 05/12/2001 Smokeless Tobacco: Never Alcohol Use Standard Drinks/Week Comments Yes 0 (1 standard drink = 0.6 oz pur e alcohol) socially AUDIT-C Answer Date Recorded Q1: How often do you have a drink containing alc ohol? 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 Not on file Not on rudy e documented as of this encounter Plan of Treatment Not on file documented as of this encounter Procedures Procedure Name Priority Date/Time Associated Diagnosis Comments SCAN - RADIOLOGY/IMAGING 06/03/2022 documented in this encounter Results * SCAN - RADIOLOGY/IMAGING (06/03/2022) Anatomical Region Laterality Modality Other us Provider Scanning Final Result documented in this encounter Visit Diagnoses Not on filedocumented in this encounter Care Teams Metal Sprayer Machined Parts Relationship Specialty Start Date End Date Morena Sprague DO PCP - General Family Medicine 03/13/21 documented as of this encounter
--- OUTSIDE RECORDS SUMMARY | 2024-08-10 12:24 | XMS_ITS | Encounter Summary ---
Author Organization [facility] Address [address] [place] [address] Phone Care Team Providers Care Branch Mechanic Name Role Phone Geovanny Mayberry Primary Care Provider [phone] Zina Davis MD Primary Care Provider Emelina Singh DPT Unavailable [phone] Morena Sprague DO Primary Care Provider [phone]- [phone] Encounter Details Date Type Department Care Team (Latest Contact Info) Description 10/05/2014 Orders Only [facility] Scanning, Provider Social History Tobacco Use Types Packs/Day Years Used Date Smoking Tobacco: Never Assessed Comments Unknown Sex and Gender Information Value Date Recorded Sex Assigned at Not on file Legal Sex Female 2: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 Gender Identity Female 08/21/2020 9:29 PM CDT Sexual Orientation Straight 08/21/2020 9: 29 PM CDT documented as of this encounter Plan of Treatment Not on file documented as of this encounter Procedures Procedure Name Priority Date/Time Associated Diagnosis Comments PULMONARY - RESULT SCAN 10/05/2014 documented in this encounter Results * PULMONARY - RESULT SCAN (10/05/2014) Anatomical Region Laterality Modality Other us Provider Scanning Final Result documented in this encounter Visit Diagnoses Not on filedocumented in this encounter Care Teams Branch Mechanic Relationship Specialty Start Date End Date Geovanny Mayberry [address] [address] PCP - General 08/04/17 03/04/19 Zina Davis MD [address] [place] [address] PCP - General Family Practice 03/05/19 03/12/21 Morena Sprague DO [address] [place] [address] PCP - General Family Medicine 03/13/21 Emelina Singh DPT [address] [place] [address] Physical Therapist Physical Therapy 06/23/19 03/16/20 documented as of this encounter
--- OUTSIDE RECORDS SUMMARY | 2024-08-10 12:24 | XMS_ITS | Clinical Summary ---
Author Organization [facility] Address [address] [place] [address] Phone Care Team Providers Care Partition Assembly Machine Operator Name Role Phone PoonamsusiMorena fernandez Primary Care Provider [phone]- [phone] Medications DULoxetine (CYMBALTA) [address] Particles Take 60 mg by mouth daily. Active ARIPiprazole (Abilify) 5 MG Tablet Take 5 mg by mouth daily. Active METHOTREXATE PO Take by mouth. Active folic acid (FOLVITE) 1 MG Tablet Take 1 mg by mouth daily. Active divalproex (DEPAKOTE) 500 MG Tablet Delayed Response Take 500 mg by mouth 3 times daily. Active rOPINIRole (REQUIP) 2 MG Tablet Take 2 mg by mouth nightly. Active ESZOPICLONE PO Take by mouth. Active methocarbamol (ROBAXIN) 500 MG Tablet Take 1,000 mg by mouth 4 times daily. Active predniSONE (DELTASONE) 20 MG Tablet Take 20 mg by mouth daily. Active clonazePAM (KlonoPIN) 0.5 MG Tablet Take 0.5 mg by mouth 2 times daily. Active Family History Medical History Relation Name Comments Alzheimer's Disease Paternal Grandfather Relation Name Status Comments Brother (53) Alive Daughter (17) Alive Father Alive Mother Alive Paternal Grandfather Son (14) Alive Social History Tobacco Use Types Packs/Day Years Used Date Smoking Tobacco: Never Smokeless Tobacco: Never Alcohol Use Standard Drinks/Week Comments Never 0 (1 standard drink = 0.6 oz pur e alcohol) Sexually Active Control Partners Comments Yes Male Comments Unknown Sex and Gender Information Value Date Recorded Sex Assigned at Not on file Legal Sex Female 1:45 PM CDT Gender Identity Not on file Sexual Orientation Not on file Plan of Treatment Health Maintenance Due Date Last Done Comments Hepatitis C Virus (HCV) Screening 1977 Hepatitis B Immunization (1 of 3 - 19+ 3-dose series) 02/26/1996 Colonoscopy 2022 Colorectal Cancer Screening 2022 Mammogram 02/28/2023 02/28/2022, 07/0 05/2020, 10/25/2019, Additional history exists Influenza Immunization (#1) 01/11/202412/10, 02/12/2022, 04/15/2021, Additional history exists SARS-COV-2 Immunization ( season) 2024 02/12/2022, 01/01/2021, 08/05/2020, Additional history exists Respiratory Syncytial Virus (RSV) Immunization (Adult) (1 - 1-dose 75+ series) 02/26/2052 DTaP/Tdap/Td Immunization Discontinued 04/15/2021 TdaP Immunization Completed 04/15/2021 Discussion re Starting/Frequency of Mammograms Completed 02/28/2022, 11/09/2020, 02/03/2020, Additional history exists Meningococcal Immunization (ACWY) Aged Out No longer eligible based on patient's age to complete this topic Pneumococcal Immunization Combined Aged Out No longer eligible based on patient's age to complete this topic Rotavirus Immunization Aged Out No lo nger eligible based on patient's age to complete this topic Insurance MEDICARE C [employer]ET[employer] Care Teams Partition Assembly Machine Operator Relationship Specialty Start Date End Date Morena Sprague DO [address] [place] [address] PCP - General Family Medicine 10/30/22
--- OUTSIDE RECORDS SUMMARY | 2024-08-10 12:24 | XMS_ITS | Clinical Summary ---
Author Organization [facility] [employer] Address [address] [place] [address] Care Team Providers Care Office Support Assistant Name Role Phone Geovanny Mayberry MD Primary Care Provider [phone] Geoavnny Mayberry MD Unavailable [phone] Source Comments [facility],non-owned Affiliates and Associated Physician Practices is amultiple site organization consisting of ambulatory clinics and hospital sitesin [place], [place]. This disclosure is being madepursuant to the Care Everywhere program and may not contain all information available regarding this patient. Last updated 18.[facility] Allergies Active Allergy Reactions Criticality Noted Date Comments Amoxicillin Rash Medium 03/18/2017 Clindamycin Other,GI Discomfort 03/18/2017 Latex Rash Medium 03/18/2017 Nsaids Other 03/18/2017 Bypass gastric Prednisone Other 03/18/2017 Gastric bypass, Medications * Be aware that medications may not be up to date on this document. Alwaysverify current medications with the patient. Medication Sig Dispensed Refills Start Date End Date Status sertraline (ZOLOFT) 100 MG tablet Take 100 mg by mouth once daily Active QUEtiapine Fumarate (SEROQUEL PO) Active multivitamin daily (THERAGRAN) tablet Take 1 tablet by mouth daily with food Active vitamin D, ergocalciferol, (DRISDOL) 68065 UNITS capsule Take 50,000 Units by mouth every 30 days Active fluticasone propionate (FLONASE) 50 MCG/ACT nasal sprayIndications:Acut e maxillary sinusitis, recurrence not specified [place] 2 sprays into each nostril once daily 1 bottles 03/18/2017 Active Immunizations Name Administration Dates Next Due INFLUENZA VACCINE, QUADR. (F LUZONE; FLULAVAL; FLUARIX; AFLURIA QUADRIVALENT; 6MO+), 0.5 ML (IIV4) 02/10/2020 MMR 03/06/2016 Family History Medical History Relation Name Comments Hyperlipidemia Father Hypertension Father Cancer - Breast Mother Cancer - Uterine Mother Hyperlipidemia Mother Hypertension Mother Relation Name Status Comments Father Mother Social History Tobacco Use Types Packs/Day Years Used Date Smoking Tobacco: Former Cigarettes 2001 Smokeless Tobacco: Never Sex and Gender Information Value Date Recorded Sex Assigned at Not on file Gender Identity Not on file Sexual Orientation Not on file Last Filed Vital Signs Vital Sign Reading Time Taken Comments Blood Pressure 118/80 03/18/2017 4:08 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 Pulse 86 03/18/2017 4:08 PM CLAIM CLINICIAN Temperature 37.1 C (98.7 F) 03/18/2017 4:08 PM CLAIM CLINICIAN Respiratory Rate 16 03/18/2017 4:08 PM CLAIM CLINICIAN Oxygen Saturation 98% 03/18/2017 4:08 PM CLAIM CLINICIAN Inhaled Oxygen Concentration - - Weight 120.2 kg (265 lb) 03/18/2017 4:08 PM CLAIM CLINICIAN Height 175.3 cm (5' 9 ) 03/18/2017 4:08 PM CLAIM CLINICIAN Body Mass Index 39.13 03/18/2017 4:08 PM CLAIM CLINICIAN Plan of Treatment Health Maintenance Due Date Last Done Comments COLOGUARD (AGES 45-75) - COLON CA SCREENING 1977 COLON MONITORING 1977 COLONOSCOPY - COLON CA SCREENING 1977 CT COLONOGRAPHY - COLON CA SCREENING 1977 Colorectal Cancer Screening 1977 FIT - COLON CA SCREENING 1977 FLEX SIG - COLON CA SCREENING 1977 LIPID TESTING 1977 MAMMOGRAM 1977 PAP SMEAR 1977 HIV SCREENING 02/26/1992 HEPATITIS C SCREENING 02/21/1995 DTAP/TDAP/TD VACCINES (1 - Tdap) 02/26/1996 HEPATITIS B VACCINE (1 of 3 - 19+ 3-dose series) 02/26/1996 SCREENING FOR DIABETES 03/18/2017 COVID-19 VACCINE ( - 2023- season) 2024 DEPRESSION SCREENING 05/12/2024 MEDICARE AWV CALENDAR YEAR 2024 INFLUENZA VACCINE (Season Ended) 2025 01/10/2023, 02/10/2020, 02/19/2018, Additional history exists ZOSTER VACCINE (1 of 2) 2027 HIB VACCINE Aged Out No longer eligi ble based on patient's age to complete this topic HPV VACCINE Aged Out No longer eligi ble based on patient's age to complete this topic MENINGOCOCCAL (Group B) VACCINE SHARED DECISION-MAKING Aged Out No longer eligible based on patient's age to complete this topic MENINGOCOCCAL GROUPS A/C/Y/W VACCINE Aged Out No longer eligible based on patient's age to complete this topic PNEUMOCOCCAL VACCINE Aged Out No long er eligible based on patient's age to complete this topic Care Teams Office Support Assistant Relationship Specialty Start Date End Date [place] [id number] PCP - General 09/30/18 Geovanny [place]berry [place] [address] [place] [id number] Family Medicine 09/30/18
--- OUTSIDE RECORDS SUMMARY | 2024-08-10 12:24 | XMS_ITS | Clinical Summary ---
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 3 Active azaTHIOprine (IMURAN) 50 mg tablet Take 150 mg by mouth daily. Active divalproex (DEPAKOTE) 500 mg delayed release tablet Take 500 mg by mouth 2 times daily. Active DULoxetine (CYMBALTA) 60 mg Capsule, Delayed Release(E.C.) Take 60 mg by mouth daily. Active famotidine (PEPCID) 40 mg tablet Take 40 mg by mouth daily at bedtime. Active gabapentin (NEURONTIN) 600 mg tablet Take 600 mg by mouth daily. Active rOPINIRole (REQUIP) 1 mg tablet Take 1 mg by mouth 2 times daily. 1 Active sulfaSALAzine (AZULFIDINE EN-TAB) 500 mg Tablet, Delayed Release (E.C.) Take 500 mg by mouth 2 times daily after meals. 3 Active Cholecalciferol , Vitamin D3, 250 mcg (10,000 unit) Capsule Take 10,000 Units by mouth daily. Active doxepin (SINEquan) 10 mg capsule Take 10 mg by mouth daily. Active tirzepatide, weight loss, (Zepbound) 5 mg/0.5 mL Pen Injector Inject 5 mg by subcutaneous injection every 7 days. Active golimumab (SIMPONI ARIA IV) Inject by intravenous injection. Every 8 weeks Active multivitamin (DAILY-FIORDALIZA) tablet Take 1 Tablet by mouth daily. Active CALCIUM CARBONATE ORAL Take by mouth. Active docusate sodium (STOOL SOFTENER ORAL) Take by mouth. Activ e Active Problems No known active problems Encounters Date Type Department Care Team Description 07/28/2024 External Device Data [facility] ABSTRACTION Provider, Abstract 07/21/2024 External Device Data [facility] ABSTRACTION Provider, Abstract 07/20/2024 External Device Data [facility] ABSTRACTION Provider, Abstract 07/17/2024 External Device Data [facility] ABSTRACTION Provider, Abstract 07/16/2024 External Device Data [facility] ABSTRACTION Provider, Abstract 07/14/2024 External Device Data [facility] ABSTRACTION Provider, Abstract 06/30/2024 External Device Data [facility] ABSTRACTION Provider, Abstract 06/02/2024 External Device Data [facility] ABSTRACTION Provider, Abstract from Last 3 Months Family History Medical History Relation Name Comments Heart Disease Brother No Known Problems Child 1 No Known Problems Child 2 Heart Disease Father Breast Cancer Mother Relation Name Status Comments Brother Alive Child 1 Alive Child 2 Alive Father Alive Mother Alive Social History Tobacco Use Types Packs/Day Years Used Date Smoking Tobacco: Former Cigarettes 1 4 Q uit: 10/27/2002 Smokeless Tobacco: Never Tobacco Cessation:Counseling Given: Not Answered Alcohol Use Standard Drinks/Week Comments Never 0 (1 standard drink = 0.6 oz pur e alcohol) Comments Unknown Sex and Gender Information Value Date Recorded Sex Assigned at Not on file Legal Sex Female 10:09 AM CDT Gender Identity Not on file Sexual Orientation Not on file Last Filed Vital Signs Vital Sign Reading Time Taken Comments Blood Pressure 112/75 04/13/2024 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 Pulse 88 04/13/2024 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 Temperature 36.7 C (98 F) 04/13/2024 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 [place] [address] Jeffy Chang MD [address] [place] [address] Health Maintenance Due Date Last Done Comments Pre-Diabetes and Diabetes Screening 1977 DTAP/TDAP/TD VACCINES (1 - Tdap) 02/26/1996 HEPATITIS B VACCINES (1 of 3 - 19+ 3-dose series) 02/26/1996 HPV/Cotest (21-29) 1998 CERVICAL CANCER SCREENING 2007 HPV/Cotest (30-65) 2007 PAP SMEAR 2007 FIT-DNA Q 3 years 2022 FIT/FOBT Q 1 year 2022 Flex Sig/CT Colonography Q 5 years 2022 BREAST CANCER SCREENING 02/28/2023 02/29/20 22, 02/28/2022, 11/09/2020, Additional history exists INFLUENZA VACCINE (#1) 2023 0, 02/19/2018, 02/09/2017, Additional history exists COLORECTAL SCREENING 07/20/2030 07/20/2020, 07/21/19 21 Colorectal Cancer Screening 07/20/2030 Insurance [employer] BLUE ACCESS/TRUE BLUE PPO ERICKTISELA [id number] [facility] [place] Care Teams Biscuit [employer] Worker Relationship Specialty Start Date End Date Morena Sprague DO [address] [place] [address] PCP - General Family Practice 10/22/23
[2024-08-10 13:07] LABS: Alanine Aminotransferase 16 U/L (6-35); Alkaline Phosphatase 87 U/L (38-126); Anion Gap 9 mmol/L (4-12); Aspartate Amino Transferase 33 U/L (14-36); Bilirubin,Total 0.6 mg/dL (0.2-1.3); Blood Urea Nitrogen 16 mg/dL (7-17); Calcium 9.2 mg/dL (8.4-10.2); Carbon Dioxide 27 mmol/L (22-30); Chloride 104 mmol/L (98-107); Estimated Glomerular Filt Rate > 60; Glucose 85 mg/dL (65-110); Potassium 4.1 mmol/L (3.4-5.0); Sodium 140 mmol/L (137-145)
== END 2024-08-10 11:03 | disposition home or self-care (01) ==
PROVIDERS: PCP Family Medicine; Visit Provider Podiatrist Foot & Ankle Surgery
DX: Z01.818 Encounter for other preprocedural examination (principal); R03.0 Elevated blood-pressure reading, without diagnosis of hypertension; I45.10 Unspecified right bundle-branch block
CPT/HCPCS: 36415; 80053; 93005

== ENCOUNTER 2024-08-16 08:06 | Outpatient (CLI) | payer BC, MEDICARE, SELFPAY ==
--- OUTSIDE RECORDS SUMMARY | 2024-08-16 08:20 | XMS_ITS | Clinical Summary ---
Author Organization [facility] Address [address] [place] [address] Care Team Providers Care Butcherette Name Role Phone Morena Sprague DO Primary Care Provider [phone] Allergies Active Allergy Reactions Criticality Noted Date [...] w/r/t gut microbiome. Referred to ADA and [employer] websites for additional information on topics [...] not improve, I recommend her seeing a inspector fabric or CRS. Anxiety and depression 08/04/2017 Panic [...] normal. Assessment & Plan (06/19/2020 3:56 PM BACK FILLER OPERATOR): She presents with extensive prior workup [...] reflex an refer to rheumatology here at [facility] for second opinion on her joint issues. We will see her back in clinic after her endoscopies for further evaluation and to make decisions about potential treatments. Encounters Date Type Department Care Team Description 08/09/2024 7:45 AM CDT Ancillary Procedure [facility] Medical Group Cardiology [facility] [address] [place] [phone] Status post placement of implantable loop recorder (Primary Dx); Syncope and collapse; Palpitations 08/06/2024 7:54 AM CDT - 08/06/2024 11:59 PM CDT Hospital Encounter [facility] [address] [place] [address] Discharge Disposition: Discharge to home or self care 08/06/2024 7:54 AM CDT - 08/06/2024 11:59 PM CDT Hospital Encounter [facility] [address] [place] [address] Chronic pain of right knee; History of arthroplasty of right knee Discharge Disposition: Discharge to home or self care 08/06/2024 7:54 AM CDT - 08/06/2024 11:59 PM CDT Hospital Encounter [facility] [address] [place] [address] Robert Gonzalez MD Chronic pain of right knee; History of arthroplasty of right knee Discharge Disposition: Discharge to home or self care 07/23/2024 7:00 AM CDT Ancillary Procedure [facility] Cardiology [address] [place] [address] [place] [phone] Status post placement of implantable loop recorder (Primary Dx); Syncope and collapse; Palpitations 07/22/2024 10:00 AM CDT Office Visit [facility] Cardiology [address] [facility] [address] [place] [address] Sue Guerrier NP Syncope and collapse; Orthostatic syncope; History of bariatric surgery; Lipid screening 07/22/2024 Telephone [facility] Cardiology [address] [place] [address] [place] [phone] Shekhar Garcia MD 07/22/2024 Telephone [facility] Orthopedics and Sports Medicine [address] [facility] [address] [place] [address] Omar Valenzuela PA 07/21/2024 Orders Only [facility] Orthopaedic Surgery [address] [facility] [address] [place] [phone] Robert Gonzalez MD Chronic pain of right knee (Primary Dx); History of arthroplasty of right knee 07/19/2024 2:00 PM CDT Ancillary Procedure [facility] Imaging at [address] [phone] Chronic left shoulder pain 07/19/2024 2:00 PM CDT Office Visit [facility] Orthopedic and Sports Medicine [address] [place] [phone] Omar Valenzuela PA Chronic left shoulder pain (Primary Dx); Subdeltoid bursitis of left shoulder joint; Incomplete tear of left rotator cuff, unspecified whether traumatic; Arthritis of left acromioclavicular joint; Biceps tendinitis of left upper extremity 07/08/2024 Telephone [facility] Orthopedics and Sports Medicine [address] [place] [address] [address], [place] [address] Roula Ledezma NP Appointment 06/28/2024 7:15 AM BACK FILLER OPERATOR Ancillary Procedure [facility] Cardiology [address] [place] [address] [address] [phone] Status post placement of implantable loop recorder (Primary Dx); Syncope and collapse; Palpitations 06/28/2024 Orders Only [facility] Cardiology [address] [place] [address] [address] [place] [phone] Shekhar Garcia MD Syncope and collapse (Primary Dx); Status post placement of implantable loop recorder 06/23/2024 Telephone [facility] [address] [facility] [address], [address] [place] [address] Parul Menon RN PMC Intake Assessment 06/21/2024 Orders Only [facility] Orthopaedic Surgery [address] [facility] Medical Office Building [address] [place] [address] Robert Gonzalez MD Chronic pain of right knee (Primary Dx) 06/11/2024 9:15 AM BACK FILLER OPERATOR Office Visit [facility] Orthopedic and Sports Medicine [address] [place] [phone] Gamal Donahue MD Psoriatic arthritis (HCC) (Primary Dx); Subdeltoid bursitis of left shoulder joint; Incomplete tear of left rotator cuff, unspecified whether traumatic; Arthritis of left acromioclavicular joint 06/11/2024 Telephone [facility] Medical Group Orthopedic and Sports Medicine [address] [place] [phone] Gamal Donahue MD Surgical Clearance 06/10/2024 7:16 AM BACK FILLER OPERATOR - 06/10/2024 11:59 PM BACK FILLER OPERATOR Hospital Encounter [facility] Radiology [address] [place] [address] Jose Alberto Bridges MD Chronic pain of right knee Discharge Disposition: Discharge to home or self care 06/09/2024 Telephone [facility] Radiology [address] [place] [address] Albertina Loza B.A. 06/04/2024 7:45 AM BACK FILLER OPERATOR Office Visit [facility] Orthopaedic Surgery [address] [facility] Advanced Medicine 6th [place] [address] [place] [address] Robert Gonzalez MD Chronic pain of right knee (Primary Dx) 06/04/2024 7:15 AM BACK FILLER OPERATOR - 06/04/2024 11:59 PM BACK FILLER OPERATOR Hospital Encounter [facility] [address] [place] [address] Chronic pain of right knee Discharge Disposition: Discharge to home or self care 06/02/2024 3:50 PM BACK FILLER OPERATOR [address] [phone] Acute knee pain, unspecified laterality 06/02/2024 Orders Only [facility] Orthopaedic Surgery [address] [facility] Medical Office Building [address] [place] [phone] Robert Gonzalez MD Chronic left shoulder pain (Primary Dx); Acute knee pain, unspecified laterality from Last 3 Months Immunizations Immunization Administration [...] - 05/11/2015 BLADDER SURGERY 05/12/2018 - 05/11/2019 [place] ARTHRP KNE CONDYLE&PLATU MEDIAL&LAT COMPARTMENTS 03/15/2020 Left [place] - [place] KNEE ARTHROSCOPY ABDOMINAL SURGERY SKIN [...] on file Legal Sex Female 2:20 AM BACK FILLER OPERATOR Gender Identity Female 08/21/2020 9:29 PM CDT Sexual Orientation Straight 08/21/2020 9: 29 PM CDT 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 Not on file Not on file [...] Procedure Name Priority Date/Time Associated Diagnosis Comments DEVICE CHECK - REMOTE Routine 08/10/2024 7:47 AM CDT Syncope and collapse Palpitations NM BONE IMAGING 3 PHASE Schedule Routine, [...] CHECK - REMOTE Routine 06/28/2024 10:11 AM BACK FILLER OPERATOR Syncope and collapse Palpitations CELL COUNT W/REFLEX DIFFERENTIAL, BODY FLUID Routine 06/10/2024 10:50 AM BACK FILLER OPERATOR Chronic pain of right knee CELL DIFFERENTIAL, BODY FLUID Routine 06/10/2024 10:50 AM BACK FILLER OPERATOR CRYSTAL ANALYSIS, BODY FLUID Routine 06/10/2024 10:50 AM BACK FILLER OPERATOR Chronic pain of right knee MYCOLOGY (FUNGAL) CULTURE AND STAIN Routine 06/10/2024 8:37 AM BACK FILLER OPERATOR MYCOBACTERIOLOGY AFB CULTURE AND ACID-FAST STAIN Routine 06/10/2024 8:37 AM BACK FILLER OPERATOR AEROBIC AND ANAEROBIC CULTURE AND GRAM STAIN Routine 06/10/2024 8:37 AM BACK FILLER OPERATOR US GUIDED ARTHROCENTESIS MAJOR JOINT Schedule Routine, Read Routine (OP Routine) 06/10/2024 8:22 AM BACK FILLER OPERATOR Chronic pain of right knee XR KNEE RIGHT 4 OR MORE VIEWS Schedule Routine, Read Routine (OP Routine) 06/04/2024 7:31 AM BACK FILLER OPERATOR Chronic pain of right knee CRP (ACUTE PHASE) Routine 06/02/2024 3:5 5 PM BACK FILLER OPERATOR Acute knee pain, unspecified laterality ERYTHROCYTE SEDIMENTATION RATE Routine 06/02/2024 3:55 PM BACK FILLER OPERATOR Acute knee pain, unspecified laterality DEVICE CHECK - REMOTE Routine 05/24/2024 2:20 PM BACK FILLER OPERATOR Syncope and collapse Palpitations DIAGNOSTIC MAMMOGRAM BILATERAL W JAVAN Schedule Routine, Read Routine (OP Routine) 02/28/2022 11:30 AM CDT Mass of breast, unspecified laterality COLONOSCOPY 07/20/2020 9:05 AM BACK FILLER OPERATOR from Last 3 Months or Most Recently Relevant to Health Maintenance Results * DEVICE CHECK - REMOTE (08/10/2024 7:47 AM CDT) Anatomical Region Laterality Modality Other Narrative 08/12/2024 7:57 AM CDT [employer] LINQ11 Loop Recorder. Dx; Syncope, Palpitations. DOI 02/11/2022Tanner. [facility] remote f/u. Routine ILR remote. Normal device function. Battery function-good. Presenting rhythm: Sinus tachycardia Medications: No anticoagulation or cardiac meds Counters since last scheduled transmission on 07/23/24. No auto or patient recorded episodes noted. See scanned report. [facility] remote f/u 09/20/24. Nestor Romero RN us Shekhar Garcia MD CV CARDIAC SERVICES [facility] Final Result * NM Bone Imaging 3 Phase (08/06/2024 [...] Modality Other Narrative 07/23/2024 3:38 PM CDT [employer] LINQ11 Loop Recorder. Dx; Syncope, Palpitations. DOI [...] scanned report. [facility] remote f/u 08/09/24. Nestor Romero, FLORIDALMA Shekhar Garcia MD CV CARDIAC SERVICES [facility]E [place] Final Result * POCT lipid panel (07/22/2024 10:16 AM CDT) Cholesterol, POC 224 mg/dL HDL, POC 83 mg/dL Triglycerides, POC 87 mg/dL LDL Cholesterol POC 124 mg/dL Chol/HDL Ratio, POC 1.5 Non-HDL Cholesterol, POC 141 mg/dL Cholesterol Total, POC 224 mg/dL Capillary blood 07/22/2024 1 0:16 AM CDT Sue Guerrier NP POINT OF CARE TEST [...] noted chronic changes over the greater tuberosity. Omar ARVIZU IMG XR PROCEDURES Final Res ult * DEVICE CHECK - REMOTE (06/28/2024 10:11 AM BACK FILLER OPERATOR) Anatomical Region Laterality Modality Other Narrative 07/01/2024 4:00 PM BACK FILLER OPERATOR [employer] LINQ11 Loop Recorder. Dx; Syncope, Palpitations. DOI 02/11/2022-Linh. [facility] remote f/u. Routine ILR remote. Normal device function. Battery function-Good. Presenting rhythm: VS, regular 70 bpm. Medications: no cardiac meds noted. Counters since last scheduled transmission on 05/17/2024. No auto or patient recorded episodes noted. See scanned report. [facility] remote f/u 08/09/2024. Nicole Gamez, RN hSekhar Garcia MD CV CARDIAC SERVICES [facility] [place] Final Result * Crystal Analysis, Body Fluid (06/10/2024 10:50 AM BACK FILLER OPERATOR) Specimen type, fld Synovial Crystals None Seen None Seen [facility] Fluid 06/10/2024 10:5 0 AM BACK FILLER OPERATOR 06/10/2024 12:14 PM BACK FILLER OPERATOR Robert Gonzalez MD LAB BODY FLUIDS AND STOOLS ORDERABLES Final Result Performing Organization Address [facility] Co de Phone Number [facility] [place] [address] * Cell Differential, Body Fluid (06/10/2024 10:50 AM BACK FILLER OPERATOR) Total cells diffed 100 cells Comment: [...] [facility] Specimen type, fld Synovial [facility] Fluid 06/10/2024 10:5 0 AM BACK FILLER OPERATOR 06/10/2024 12:14 PM BACK FILLER OPERATOR Jose Alberto Bridges MD LAB BODY FLUIDS AND STOO LS ORDERABLES Final Result Performing Organization Address [facility] Co de Phone Number [facility] [place] [employer] [place] [address] * (ABNORMAL) Cell count w/rflx diff, body fluid (06/10/2024 10:50 AM BACK FILLER OPERATOR) Specimen type, fld Synovial Color, fld Red [facility] Clarity, fld Cloudy(A) Clear [facility] Nucleated cells, fld 409 /cumm [facility] Comment: Interpretive Data Unless otherwise specified, the reference range and other method performance specifications have not been established for CSF/Body Fluid tests. The test results should be integrated into the clinical context for interpretation. Current interpretive data was last revised on 2018. RBC, fld 38,567 /cumm [facility] Fluid 06/10/2024 10:5 0 AM BACK FILLER OPERATOR 06/10/2024 12:14 PM BACK FILLER OPERATOR us Jose Alberto Bridges MD LAB BODY FLUIDS AND STOO LS ORDERABLES Final Result Performing Organization Address City/[facility]/ZIP Co de Phone Number [facility] [place] [address] * Mycology (fungal) culture and stain Aspirate Knee, right (06/10/2024 8:37 AM BACK FILLER OPERATOR) Direct Specimen Exam Stain: No Fungal elements seen. Report Final Report: No growth of fungus [facility] Aspirate (Knee, right) 06/10/2024 8:37 AM BACK FILLER OPERATOR 06/10/2024 11:33 AM BACK FILLER OPERATOR Narrative [facility] - 07/08/2024 7:25 AM BACK FILLER OPERATOR Right Knee Aspiration Fluid specimen received in sterile syringe. Testing performed by [facility] Microbiology Laboratory ([phone]). us Robert Gonzalez MD LAB MICROBIOLOGY - G ENERAL ORDERABLES Final Result [facility] [place] [address] * Mycobacteriology (AFB) culture and acid-fast stain Aspirate Knee, right (06/10/2024 8:37 AM BACK FILLER OPERATOR) Direct Specimen Exam Stain: No Acid-fast bacilli seen Report Final Report: No growth of acid-fast bacilli [facility] Aspirate (Knee, right) 06/10/2024 8:37 AM BACK FILLER OPERATOR 06/10/2024 11:33 AM BACK FILLER OPERATOR Narrative [facility] - 08/09/2024 2:25 PM CDT Right Knee Aspiration Fluid specimen received in sterile syringe. Testing performed by [facility] Microbiology Laboratory ([phone]). Robert Gonzalez MD LAB MICROBIOLOGY - G ENERAL ORDERABLES Final Result Performing Organization Address [facility] Co de Phone Number [facility] Department [place] [address] * Aerobic and anaerobic culture and gram stain Aspirate Knee, right (06/10/2024 8:37 AM BACK FILLER OPERATOR) Direct Specimen Exam Stain: No polymorphonuclear leukocytes seen. No organisms seen. Report Final Report: No growth [facility] Aspirate (Knee, right) 06/10/2024 8:37 AM BACK FILLER OPERATOR 06/10/2024 11:33 AM BACK FILLER OPERATOR Narrative [facility] - 06/15/2024 11:24 AM BACK FILLER OPERATOR Right Knee Aspiration Fluid specimen received in sterile syringe. Testing performed by [facility] Microbiology Laboratory ([phone]) Specimens submitted from normally sterile body sites will have all bacterial morphotypes identified. Specimens that contain grossly mixed aevry and/or are from body sites that are not normally sterile will be examined for Staphylococcus aureus, Pseudomonas aeruginosa, beta-hemolytic strep, vancomycin-resistant Enterococcus, Bacteroides, Parabacteroides, Clostridium perfringens and fungus. If any of these are isolated, the organism will be reported. Current interpretive data was last revised on 2019. Robert Gonzalez MD LAB MICROBIOLOGY - G ENERAL ORDERABLES Final Result Performing Organization Address City/[facility]/ZIP Co de Phone Number [facility] Department [place] [address] * US Guided Aspiration or Injection of Major Joint (06/10/2024 8:22 AM BACK FILLER OPERATOR) Anatomical Region Laterality Modality Entire body N/A Radio Fluoroscop y 06/10/2024 10:5 9 AM BACK FILLER OPERATOR Impressions 06/10/2024 11:32 AM BACK FILLER OPERATOR Left knee joint aspiration under ultrasound guidance. 5 mL clear red fluid was aspirated and sent for cell count, crystal evaluation, Gram stain, and culture. Dictated by: Jason Gold MD The radiology attending physician has personally reviewed this study, and had reviewed and/or edited this written report and agrees with it. Electronically signed by: Jose Alberto Bridges M.D. Narrative 06/10/2024 11:32 AM BACK FILLER OPERATOR EXAMINATION: Right knee joint aspiration under [...] was obtained. Prior to beginning the procedure, [place] Protocol was performed to confirm the patient's [...] was obtained. Prior to beginning the procedure, [place] Protocol was performed to confirm the patient's [...] Electronically signed by: Jose Alberto Bridges M.D. us Robert Gonzalez MD IMG US PROCEDURES Fi nal Result * XR Knee Right 4 or More Views (06/04/2024 7:31 AM BACK FILLER OPERATOR) Anatomical Region Laterality Modality Lower Extremities, Knee Right Computed Radiography 06/04/2024 8:41 AM BACK FILLER OPERATOR Impressions 06/04/2024 8:41 AM BACK FILLER OPERATOR 1. New total right knee arthroplasty in near-anatomic position with neutral mechanical axis. Electronically signed by: Seb Farris M.D. Narrative 06/04/2024 8:41 AM BACK FILLER OPERATOR EXAMINATION: XR KNEE RIGHT 4 OR [...] (ABNORMAL) Erythrocyte sedimentation rate (06/02/2024 3:55 PM BACK FILLER OPERATOR) [facility] Erythrocyte sedimentation rate 74(H) 1 - 20 mm/hr Blood 06/02/2024 3:55 PM BACK FILLER OPERATOR 06/02/2024 4:32 PM BACK FILLER OPERATOR Robert Gonzalez MD LAB BLOOD ORDERABLES Final Result [facility] [address] [facility] [place] [address] * (ABNORMAL) CRP (acute phase) (06/02/2024 3:55 PM BACK FILLER OPERATOR) CRP 24.2(H) <=10.0 mg/L Blood 06/02/2024 3:55 PM BACK FILLER OPERATOR 06/02/2024 4:32 PM BACK FILLER OPERATOR us Robert Gonzalez MD LAB BLOOD ORDERABLES Final Result [facility] [place] [address] [facility] [place] [address] * DEVICE CHECK - REMOTE (05/24/2024 2:20 PM BACK FILLER OPERATOR) Anatomical Region Laterality Modality Other Narrative 06/10/2024 4:20 PM BACK FILLER OPERATOR [employer] REVEAL LinQ II implanted February 11, 2022 [...] Continue to monitor remotely. Vinod Bates [employer] us Shekhar Garcia MD CV CARDIAC SERVICES [facility] Final Result * Diagnostic Mammogram Bilateral W [...] it. Electronically signed by: Polly Ramesh M.D. us Shabnam Graf MD PhD IMG MAMMO PROCEDURES Final Result * COLONOSCOPY (07/20/2020 9:05 AM BACK FILLER OPERATOR) Anatomical Region Laterality Modality Other Narrative Procedure Note Fausto Delgado MD - 07/20/2020 9:05 AM CST [facility] Patient Name: Corrie Garcia Procedure Date: 07/20/2020 9:05 AM Date of : 1975 Admit Type: Outpatient Age: 45 Gender: Female Attending MD: Fausto Delgado M.D. Room: [facility] ENDOSCOPY ROOM 3 Note Status: [...] The scope was passed under direct vision.The [id number] endoscope was introduced through the anus [...] On: 07/20/2020 9:05 AM Recognized by the [place] [employer] for promoting quality in endoscopy Fausto Delgado MD ENDOSCOPY PROCEDURES Final Re sult from Last 3 Months or Most Recently Relevant to Health Maintenance Insurance [employer] [place] [employer] [place] GOLD [facility] AETNA MEDICARE GOLD Advance Directives For more information, please contact: [phone] * Full Code (Latest Code Status on File) Date Activated Date Inactivated Comments 07/20/2020 8:24 AM 07/20/2020 2:42 PM Care Teams Butcherette Relationship Specialty Start Date End Date Morena Sprague DO PCP - General Family Medicine 03/13/21
--- OUTSIDE RECORDS SUMMARY | 2024-08-16 08:20 | XMS_ITS | Clinical Summary ---
Author Organization [facility] [email or web address] Address [address] [facility] [place] [address] Care Team Providers Care Distribution Driver Name Role Phone Geovanny Mayberry MD Primary Care Provider [phone] Geovanny Mayberry MD Unavailable [phone] Source Comments [facility],non-owned Affiliates and Associated Physician Practices is amultiple site organization consisting of ambulatory clinics and hospital sitesin [place], [place], [place] and [place]. This disclosure is being madepursuant to the Care Everywhere program and may not contain all information available regarding this patient. Last updated 18.[facility] Allergies Active Allergy Reactions Criticality Noted [...] with food Active vitamin D, ergocalciferol, (DRISDOL) 27488 UNITS capsule Take 50,000 Units by mouth every 30 days Active fluticasone propionate (FLONASE) 50 MCG/ACT nasal sprayIndications:Acut e maxillary sinusitis, recurrence not specified [place] 2 sprays into each nostril once daily [...] Comments Blood Pressure 118/80 03/18/2017 4:08 PM SCRIPT ARTIST Pulse 86 03/18/2017 4:08 PM SCRIPT ARTIST Temperature 37.1 C (98.7 F) 03/18/2017 4:08 PM SCRIPT ARTIST Respiratory Rate 16 03/18/2017 4:08 PM SCRIPT ARTIST Oxygen Saturation 98% 03/18/2017 4:08 PM SCRIPT ARTIST Inhaled Oxygen Concentration - - Weight 120.2 kg (265 lb) 03/18/2017 4:08 PM SCRIPT ARTIST Height 175.3 cm (5' 9 ) 03/18/2017 4:08 PM SCRIPT ARTIST Body Mass Index 39.13 03/18/2017 4:08 PM SCRIPT ARTIST Plan of Treatment Health Maintenance Due Date [...] age to complete this topic Care Teams Distribution Driver Relationship Specialty Start Date End Date [place] [address] PCP - General 09/30/18 Geovanny [place]berry [place] [address] [place] [phone] Family Medicine 09/30/18
--- OUTSIDE RECORDS SUMMARY | 2024-08-16 08:20 | XMS_ITS | Clinical Summary ---
Author Organization [facility] Address [address] [place] [address] Phone Care Team Providers Care Programs Director Name Role Phone PoonamsusiMorena fernandez Primary Care Provider [phone] Medications DULoxetine (CYMBALTA) [address] [...] topic Insurance MEDICARE C A[employer] Care Teams Programs Director Relationship Specialty Start Date End Date Morena Sprague DO [address] [place] [address] PCP - General Family Medicine 10/30/22
--- OUTSIDE RECORDS SUMMARY | 2024-08-16 08:20 | XMS_ITS | Clinical Summary ---
Author Organization [facility] Radha Mcbride Address [address] [place] [address] Care Team Providers Care Cnc Applications Engineer Name Role Phone Morena Sprague Primary Care Provider [phone] Allergies Active Allergy Reactions Criticality Noted Date [...] Comments Blood Pressure 112/75 04/13/2024 1:45 PM ARCGIS DEVELOPER Pulse 88 04/13/2024 1:45 PM ARCGIS DEVELOPER Temperature 36.7 C (98 F) 04/13/2024 1:45 PM ARCGIS DEVELOPER Respiratory Rate 15 04/13/2024 1:45 PM ARCGIS DEVELOPER Oxygen Saturation 95% 04/13/2024 1:45 PM ARCGIS DEVELOPER Inhaled Oxygen Concentration - - Weight 95.7 kg (211 lb) 04/13/2024 1:45 PM ARCGIS DEVELOPER Height 177.8 cm (5' 10 ) 10/28/2023 10:48 AM CDT Body Mass Index 30.28 10/28/2023 10:48 AM CDT Plan of Treatment Upcoming Encounters Date Type Department Care Team (Late st Contact Info) Description 08/20/2024 12:15 PM CDT Office Visit [facility] Oncology and Hematology - Ger [address] [facility] [address] [place] [address] Jeffy Chang MD [address] [facility] [address] [place] [address] Health Maintenance Due Date Last [...] Insurance BCBS BLUE ACCESS/TRUE BLUE PPO ERICKTISELA [id number] [facility] MCR Care Teams Cnc Applications Engineer Relationship Specialty Start Date End Date Morena Sprague DO [address] [facility] [address] [place] [address] PCP - General Family Practice 10/22/23
--- OUTSIDE RECORDS SUMMARY | 2024-08-16 08:20 | XMS_ITS | Data Portability ---
Author Organization [place] [facility] [employer], Main Office Address [address] [place] [address] Care Team Providers Care Clarifier Operator Helper Name Role Phone ARON BELLA Primary Care Provider ARON BELLA Referring Provider [phone] Assessment Encounter Date Assessment Date Assessment LastModified by Organization Details LastModified Time 12/16/2022 12/16/2022 Impression: 1. Patient has painful left total knee arthroplasty which was performed in March of 2020. Her hyperextension that she has is very minimal and I think this is exacerbated by the fact that she has extreme obesity and probably tends to lock her knees out into full extension take the pressure off the extensor mechanism and she probably feels this occasionally buckle into flexion when the knee comes out of this locked into extension posture and over time this may worsen the degree of hyperextension which could become severely problematic. I believe it is her extreme obesity that is leading to her propensity to lock her knees out in full extension with standing and walking. She has tenderness in all the typical soft tissue tenderness areas in her left knee globally medial lateral parapatellar retinaculum pass medial collateral ligament IT band. I think her implants are well fixed she has normal stability in appropriate range of motion. Unfortunately I think that her symptoms are related to tension overload of the soft tissues caused by her extreme obesity and the only solution for her is going to be to lose weight and her gaining 80 lb over the last 7 months as likely exacerbated this issue and is the reason that she has more pain now and she feels her knees are getting worse. She has no effusion in her knee. She had a negative infection workup in 2020 the and I do not see any signs that would be suspicious for infection currently with no palpable effusion. I recommended that she consider seeing a dietitian. Steroids can certainly increase the appetite but they do not cause weight gain except through the fact that they may him crease appetite that can result in over eating. I would recommend that she take steps to reverse this trend and I would recommend she see a dietitian. Other options would be to join weight watchers or perhaps tops but seeking advice from a dietitian I think would be most helpful. 2. Patient has moderately severe medial compartment osteoarthritis in the right knee. She has most her symptoms related to the patellofemoral joint actually on exam today. She did not have any medial joint line tenderness today. This is exacerbated again by her extreme obesity. I have discussed with her the option of cortisone injection but I would not recommend that. I do not think it would add very much since she is already taking 15 mg of prednisone a day and it does put her at higher risk for having an infection resulting from an injection due to her being on steroids which increases the risk of infection with injection but also with her being on an immune system modulating agent the Simponi aria infusions. She is not able to take nonsteroidal anti-inflammatory medications she states. Eventually knee replacement surgery may be an appropriate option for her but it is due to fail I believe same reasons he is having difficulties on left knee in less she is able to lose weight. I am happy to see her back if anything changes or if she has any additional questions about this. 45 minutes were spent in total care this patient more than half the time spent in [id number] care for Not available 12/18/2022 14:50:54 Plan of Treatment Reminders Order Date Submit Date Provider Last Modified By Organization Details Last Modified Time Details Appointments None record ed. Lab None record ed. Referral None record ed. Procedures None record ed. Surgeries None record ed. Imaging XR, knee 023 12/17/19 23 [facility] [place], [address], [place], [address], 3 17:06:43 Medication Orders None record ed. Patient TargetsNo targets recorded. Patient InstructionsNo instructions recorded. Reason for Referral None Reported. Results Created Date Observation Date Name Description Value Unit Range Abnormal Flag Note LastModifiedBy Organization Detail LastModifiedTime 12/17/19 23 XR, knee No observ ation record ed. [facility] [place] [address], [place], [address], 12/18/2022 14:44:46 Result Notes None recorded. Problems Name Problem SNOMED Code Status Onset Date Resolution Date Notes Provider Name and Address Organization Details Recorded Time History of left total knee replacemen t 2854931322516 105 Active 2019 Not Available [facility] 3 13:52:22 History of total knee arthroplas ty 3411938828638 Active 2020 Not Available [facility] 3 13:52:22 Pain of bilateral knee joints 7385682765039 04 Active 2022 SANIA Haro, [place] - [facility] 3 15:55:54 Problem Notes None recorded. Procedures Surgical History None recorded. Imaging Results Imaging Date Name Status LastModified by Organiz ation Details LastModified Time 12/16/2022 XR, knee completed [facility] [place] [address] [facility] [address], [place], [address], 12/18/2022 14:44:46 Procedure Notes None recorded. Medical Equipment None Reported. Allergies Allergen ID Allergen Name Allergen Category Reaction Reaction Severity Criticality Documentation Date Start Date Code Code System Note Provider Name and Address Organization Details Recorded Time 21384 Product containin g penicilli n (product) medicatio n Not available Not available Not available 07/10/2022 33597 8001 SNOMED Not Available [facility] 3 13:53:24 67993 ibuprofen medicatio n Not available Not available Not available 07/10/2022 5640 RxNorm Not Available [facility] 3 13:53:24 Medications Name Sig Start Date Stop Date Status Note LastModified by Organization Details LastModified Time cyclobenz aprine 10 mg tablet TAKE 1 TABLET BY MOUTH THREE TIMES A DAY NEEDED FOR MUSCLE SPASM active Not Available Not Available No t Available methocarb akanksha 500 mg tablet TAKE 2 TABLETS BY MOUTH THREE TIMES DAILY NEEDED active Not Available Not Available No t Available metformin 500 mg tablet 12/16 completed Not Available Not Available Not Available prednison e 10 mg tablet TAKE 4 TABLETS BY MOUTH DAILY IN THE MORNING WITH FOOD FOR PLEURISY FOR 5 DAYS active Not Available Not Available No t Available gabapenti n 600 mg tablet TAKE 1 TABLET BY MOUTH EVERY DAY active Not Available Not Available No t Available ropinirol e 1 mg tablet active Not Available Not Available Not Available clindamyc in HCl 300 mg capsule PLEASE SEE ATTACHED FOR DETAILED DIRECTIO NS active Not Available Not Available No t Available triazolam 0.25 mg tablet TAKE 1 TABLET BY MOUTH 1 HOUR PRIOR TO APPOINTM ENT active Not Available Not Available No t Available azithromy gilberto 250 mg tablet TAKE 2 TABLETS BY MOUTH TODAY, THEN TAKE 1 TABLET DAILY FOR 4 DAYS 12/16 completed Not Available Not Available Not Available fluconazo le 150 mg tablet TAKE 1 TABLET BY MOUTH ONCE A SINGLE DOSE active Not Available Not Available No t Available hydrocodo ne 5 mg-acetam inophen 325 mg tablet TAKE 1 TABLET BY MOUTH EVERY 4 TO 6 HOURS NEEDED FOR PAIN active Not Available Not Available No t Available famotidin e 40 mg tablet TAKE 1 TABLET BY MOUTH ONCE DAILY AT BEDTIME active Not Available Not Available No t Available clonazepa m 0.5 mg tablet TAKE 1 TABLET BY MOUTH TWICE A DAY NEEDED active Not Available Not Available No t Available prednison e 5 mg tablet PLEASE SEE ATTACHED FOR DETAILED DIRECTIO NS active Not Available Not Available No t Available clindamyc in HCl 150 mg capsule TAKE 1 CAPSULE BY MOUTH EVERY 6 HOURS UNTIL GONE active Not Available Not Available No t Available azathiopr ine 50 mg tablet TAKE 2 TABLETS (100 MG) BY MOUTH ONCE DAILY FOR 30 DAYS active Not Available Not Available No t Available sulfameth oxazole 800 mg-trimet hoprim 160 mg tablet 07/18 completed Not Available Not Available Not Available tramadol 50 mg tablet TAKE 1-2 TABLETS BY MOUTH WITH OTC TYLENOL THREE TIMES DAILY FOR ARTHRITI S PAIN active Not Available Not Available No t Available pantopraz ole 20 mg tablet,de layed release TAKE 1 TABLET BY MOUTH EVERY DAY 12/16 completed Not Available Not Available Not Available lorazepam 0.5 mg tablet TAKE 1 TABLET BY MOUTH TWICE A DAY NEEDED active Not Available Not Available No t Available methotrex ate sodium 2.5 mg tablet TAKE 5 TABLETS IN THE MORNING AND EVENING BY MOUTH ONCE WEEKLY active Not Available Not Available No t Available tamoxifen 10 mg tablet TAKE 1 TABLET BY MOUTH EVERY DAY active Not Available Not Available No t Available Kenalog 10 mg/mL suspensio n for injection In office injectio n administ ered by the provider 12/16 completed [facility]: [phone] Not Available Not Available Not Available colesevel am 625 mg tablet 12/16 completed Not Available Not Available Not Available benzonata te 100 mg capsule TAKE 1 CAPSULE BY MOUTH THREE TIMES A DAY NEEDED FOR COUGH 12/16 completed Not Available Not Available Not Available hydrocodo ne 7.5 mg-acetam inophen 325 mg tablet TAKE 1 TABLET BY MOUTH EVERY 6 HOURS NEEDED FOR PAIN active Not Available Not Available No t Available cephalexi n 500 mg capsule active Not Available Not Available Not Available pantopraz ole 40 mg tablet,de layed release TAKE 1 TABLET BY MOUTH EVERY DAY active Not Available Not Available No t Available nystatin 100,000 unit/gram topical cream APPLY TOPICALL Y 3 TIMES A DAY active Not Available Not Available No t Available divalproe x ER 500 mg tablet,ex tended release 24 hr TAKE 1 TABLET BY MOUTH TWICE A DAY active Not Available Not Available No t Available promethaz ine 25 mg tablet 12/16 completed Not Available Not Available Not Available polymyxin B sulfate 10,000 unit-trim ethoprim 1 mg/mL eye drops INSTILL 1 DROP INTO LEFT EYE 4 TIMES A DAY WHILE AWAKE FOR 7 DAYS DO NOT EXCEED 6 DOSES IN 24 HOURS active Not Available Not Available No t Available nystatin- triamcino lone 100,000 unit/g-0. 1 % topical cream APPLY A THIN LAYER TOPICALL Y TO AFFECTED AREAS FOR 5 DAYS. (VAGINAL LABIA AND PERINEUM ) active Not Available Not Available No t Available gabapenti n 300 mg capsule 05/29 completed Not Available Not Available Not Available folic acid 1 mg tablet TAKE 1 TABLET BY MOUTH ONCE DAILY active Not Available Not Available No t Available hydroxyzi ne HCl 25 mg tablet TAKE 1 TABLET BY MOUTH 3 TIMES A DAY NEEDED FOR 30 DAYS. 12/16 completed Not Available Not Available Not Available lisinopri l 5 mg tablet TAKE 1 TABLET BY MOUTH DAILY active Not Available Not Available No t Available zolpidem 5 mg tablet TAKE 1 TABLET BY MOUTH EVERY DAY AT BEDTIME NEEDED FOR INSOMNIA active Not Available Not Available No t Available furosemid e 20 mg tablet TAKE 1 TABLET BY MOUTH EVERY MORNING active Not Available Not Available No t Available zaleplon 5 mg capsule TAKE 1 CAPSULE NEEDED BY ORAL ROUTE AT BEDTIME FOR 30 DAYS 12/16 completed Not Available Not Available Not Available estradiol 0.01% (0.1 mg/gram) vaginal cream PLEASE SEE ATTACHED FOR DETAILED DIRECTIO NS active Not Available Not Available No t Available methylpre dnisolone 4 mg tablets in a dose pack TAKE 6 TABLETS ON DAY 1 DIRECTED ON PACKAGE AND DECREASE BY 1 TAB EACH DAY FOR A TOTAL OF 6 DAYS active Not Available Not Available No t Available dicyclomi ne 10 mg capsule 12/16 completed Not Available Not Available Not Available Hibiclens 4 % topical liquid Directio ns: Shower with the body wash the night before surgery and morning of the surgery at home before coming in for surgery. Take extra time to wash carefull y the hip, knee or shoulder that will have the surgery. 05/29 completed Not Available Not Available Not Available aripipraz ole 10 mg tablet 12/16 completed Not Available Not Available Not Available guaifenes in 400 mg tablet TAKE 3 TABLETS BY MOUTH EVERY 12 HOURS NEEDED FOR CONGESTI ON 12/16 completed Not Available Not Available Not Available cyclobenz aprine 5 mg tablet TAKE 1-2 TABLETS BY MOUTH NIGHTLY active Not Available Not Available No t Available aripipraz ole 5 mg tablet TAKE 1 TABLET BY MOUTH EVERY DAY FOR 30 DAYS active Not Available Not Available No t Available metoprolo l tartrate 25 mg tablet TAKE 1 TABLET BY MOUTH TWICE A DAY active Not Available Not Available No t Available duloxetin e 60 mg capsule,d elayed release TAKE 1 CAPSULE BY MOUTH TWICE A DAY active Not Available Not Available No t Available eszopiclo ne 3 mg tablet TAKE 1 TABLET BY MOUTH EVERY DAY AT BEDTIME active Not Available Not Available No t Available eszopiclo ne 2 mg tablet TAKE 1 TABLET BY MOUTH EVERY DAY AT BEDTIME active Not Available Not Available No t Available ramelteon 8 mg tablet 12/16 completed Not Available Not Available Not Available Euflexxa 10 mg/mL (mw 2.4-3.6 million) intra-art icular syringe Injectio ns given in the office by the doctor 12/16 completed [facility]: [id number] Not Available Not Available Not Available lidocaine (PF) 10 mg/mL (1 %) injection solution In office injectio n administ ered by the provider 12/16 completed [facility]: [phone] Not Available Not Available Not Available fluocinol one acetonide oil 0.01 % ear drops APPLY IN EARS 1-2 TIMES DAILY NEEDED FOR ITCHING/ SCALING 12/16 completed Not Available Not Available Not Available aripipraz ole 2 mg tablet TAKE 1 TABLET BY MOUTH EVERY DAY active Not Available Not Available No t Available GaviLyte- N 420 gram oral solution 05/29 completed Not Available Not Available Not Available Xarelto 10 mg tablet 12/16 completed Not Available Not Available Not Available Lidocaine Pain Relief 4 % topical patch APPLY 1 PATCH ON THE SKIN EVERY DAY active Not Available Not Available No t Available Vitals Date Recorded Body height Body mass index (BMI) Body weight Provider Name and Address Organization Details Last Updated DateTime 12/16/2022 172.72 cm 48.2 kg/m2 094025.78 g SANIA Haro [facility] 12/16/2022 16:13:26 Social History None recorded. Functional Status None recorded. Mental Status None recorded. Family History Nothing Reported. Medical History No medical history recorded. Gynecological HistoryNo gynecological history recorded. Obstetrics History GPAL:G 0 P 0 0 0 0 Past Encounters Encounter ID Performer Location Encounter Start Date Encounter Closed Date Diagnosis/Indication Diagnosis SNOMED-CT Code Diagnosis ICD10 Code Diagnosis Note [id number] Jadon Booker MD [facility] [place] [address] [place] [address] 12/16/2022 15:31:22 12/18/2022 17:06:42 Pain of bilateral knee joints [id number] 78031 M25.561 M25.562 Health Concerns Section Related Observation LastModified by Organization Detai ls LastModified Time None Recorded Concern Status LastModified by Organization Details LastModified Time None Recorded Advance Directives Directive None Recorded Payers Encounter Date Sequence Insurance Name Policy Number Policy [employer] Covered Member ID [employer] Member ID Guarantor Name 12/16/2022 1 [place] [id number]) [id number] Valerio Lieberman [id number] Corrie Lieberman 12/16/2022 2 [employer] - [employer] (MEDICARE REPLACEMENT /ADVANTAGE - HMO) [id number] Corrie Chan Moi [id number] Corrie Chan Mio Notes Date Note Type Note Provider Name and Address Organization Details Recorded Time 12/16/2022 text/html patient is a 47-year-old female who presents for another opinion on her knees. She underwent left total knee arthroplasty in 2019March [address] Espinoza. Dr. Espinoza left the practice so she followed up with Dr. Liu and x-rays about a year after surgery showed a lucency over the medial 1/4 of the patella on the sunrise view. The lucency is nondescript and it may simply be osteopenia in this area which is just medial to the portion of the patella to which the patellar implant is cemented. She has continued to have pain in her knee replacement. Pain is mostly in the medial aspect of her left knee. Dr. Liu aspirated the knee in 2020 and a grew a bacteria that was felt to be a contaminant in all likelihood and he referred her to [facility] and she saw Dr. Clifton who aspirated her knee and this time the cultures were negative but she was noted to have pseudogout changes. Nothing further was recommended at that time. During the antrum, since May of this year has been on higher dose steroids. She is down to 15 mg daily. This was started because of recurrent pleural effusion. Since May she gained 80 lb. Prior to May she weighed 250 lb and now she weighs 317 lb which had 5 ft 8 corresponds to a BMI of 48.2. Her other complaint with her left knee is that her left knee hyperextends. The left knee does not hyperextend as much as the right knee which has never had surgery hyperextends however. She saw Dr. Liu again on September 12, 2022 and I reviewed those x-rays that she provided which we uploaded and that again shows a normally aligned left knee replacement with a resurfaced patella that on the sunrise view shows prominent osteopenia of the medial 4th of the patella the portion of patella just medial to where the patellar button is cemented in place. It does not appear different in appearance compared with 2020. he did not have anything else to offer her at that time and she comes in today for another opinion. Both of her knees bother equally. Her right knee has a more diffuse pain all around the knee cap anterolateral anteriorly anteromedially. She has pain when she 1st stands up after sitting for a long time her knees bother her with stairs squatting kneeling walking she complains of pain instability stiffness loss of motion swelling. They seem to catch in give way. She will usually use a cane for support. She feels that her knees are both getting worse. She has a history of psoriatic arthritis and she complains that she hurts everywhere every day but her knees are her worst pains. She takes tramadol 100 mg 3 times daily and Tylenol 1000 mg 3 times daily. She had the methotrexate side effects and she currently takes another chemotherapy agent for her psoriatic arthritis and she also takes Simponi Aria IV infusion every 8 weeks. Jadon Booker MD [address] [place] [address], [place], [address], [place] [facility] [employer] [facility] 12/24/2022 18:51:51 OBGyn Episode No OBEpisode recorded.
--- OUTSIDE RECORDS SUMMARY | 2024-08-16 08:20 | XMS_ITS | Referral Summary ---
Author Organization [facility] Address [address] [place] [address] Care Team Providers Care Bus Steward Name Role Phone Morena Sprague DO Primary Care Provider [phone] Encounters Date Type Department Care Team Description 08/09/2024 7:45 AM CDT Ancillary Procedure [facility] Cardiology [address] [place] [phone] Status post placement of implantable loop recorder (Primary Dx); Syncope and collapse; Palpitations 08/06/2024 7:54 AM CDT - 08/06/2024 11:59 PM CDT Hospital Encounter [facility] ([facility]) [address] [place] [address] Discharge Disposition: Discharge to home or self care 08/06/2024 7:54 AM CDT - 08/06/2024 11:59 PM CDT Hospital Encounter [facility] ([facility]) [address] [place] [address] Chronic pain of right knee; History of arthroplasty of right knee Discharge Disposition: Discharge to home or self care 08/06/2024 7:54 AM CDT - 08/06/2024 11:59 PM CDT Hospital Encounter [facility] ([facility]) [address] [place] [address] Robert Gonzalez MD Chronic pain of right knee; History of arthroplasty of right knee Discharge Disposition: Discharge to home or self care 07/23/2024 7:00 AM CDT Ancillary Procedure [facility] Cardiology [address] [place] [address] [place] [address] [place] [phone] Status post placement of implantable loop recorder (Primary Dx); Syncope and collapse; Palpitations 07/22/2024 Telephone [facility] Cardiology [address] [place] [address] [place] [phone] Shekhar Garcia MD 07/22/2024 Telephone [facility] Orthopedics and Sports Medicine [address] [place] [address] [address] [place] [phone] Omar Valenzuela PA 07/22/2024 10:00 AM CDT Office Visit [facility] Cardiology [address] [facility] [address] [place] [phone] Sue Guerrier NP Syncope and collapse; Orthostatic syncope; History of bariatric surgery; Lipid screening 07/21/2024 Orders Only [facility] Orthopaedic Surgery [address] [facility] Medical Office Building [address] [place] [phone] Robert Gonzalez MD Chronic pain of right knee (Primary Dx); History of arthroplasty of right knee 07/19/2024 2:00 PM CDT Ancillary Procedure [facility] at [address] [phone] Chronic left shoulder pain 07/19/2024 2:00 PM CDT Office Visit [facility] [address] [place] [phone] Omar Valenzuela PA Chronic left shoulder pain (Primary Dx); Subdeltoid bursitis of left shoulder joint; Incomplete tear of left rotator cuff, unspecified whether traumatic; Arthritis of left acromioclavicular joint; Biceps tendinitis of left upper extremity 07/08/2024 Telephone [facility] [address] [place] [address] [address] [place] [phone] Roula Ledezma NP Appointment 06/28/2024 Orders Only [facility] Cardiology [address] [facility] [address] [place] [phone] Shekhar Garcia MD Syncope and collapse (Primary Dx); Status post placement of implantable loop recorder 06/28/2024 7:15 AM ABLE BODIED SEAMAN Ancillary Procedure [facility] Cardiology [address] [place] [address] [address] [place] [phone] Status post placement of implantable loop recorder (Primary Dx); Syncope and collapse; Palpitations 06/23/2024 Telephone [facility] [address] [facility] [address] [place] [address] Parul Menon RN PMC Intake Assessment 06/21/2024 Orders Only [facility] Orthopaedic Surgery [facility] Medical Office Building [address] [place] [address] Robert Gonzalez MD Chronic pain of right knee (Primary Dx) 06/11/2024 Telephone [facility] [address] [place] [phone] Gamal Donahue MD Surgical Clearance 06/11/2024 9:15 AM ABLE BODIED SEAMAN Office Visit [facility] [address] [place] [phone] Gamal Donahue MD Psoriatic arthritis (HCC) (Primary Dx); Subdeltoid bursitis of left shoulder joint; Incomplete tear of left rotator cuff, unspecified whether traumatic; Arthritis of left acromioclavicular joint 06/10/2024 7:16 AM ABLE BODIED SEAMAN - 06/10/2024 11:59 PM ABLE BODIED SEAMAN Hospital Encounter [facility] Radiology [address] [place] [address] Jose Alberto Bridges MD Chronic pain of right knee Discharge Disposition: Discharge to home or self care 06/09/2024 Telephone [facility] Radiology [address] [place] [address] Albertina Loza, B.A. 06/04/2024 7:15 AM ABLE BODIED SEAMAN - 06/04/2024 11:59 PM ABLE BODIED SEAMAN Hospital Encounter [facility]) [address] [place] [address] Chronic pain of right knee Discharge Disposition: Discharge to home or self care 06/04/2024 7:45 AM ABLE BODIED SEAMAN Office Visit [facility] Orthopaedic Surgery [address] [facility] Advanced Medicine 6th [place] [address] [place] [address] Robert Gonzalez MD Chronic pain of right knee (Primary Dx) 06/02/2024 3:50 PM ABLE BODIED SEAMAN Lab [address] [phone] Acute knee pain, unspecified laterality 06/02/2024 Orders Only [facility] Orthopaedic Surgery [address] [facility] Medical Office Building [address] [place] [phone] Robert Gonzalez MD Chronic left shoulder pain (Primary Dx); Acute knee pain, unspecified laterality from Last 3 Months Allergies Active Allergy [...] implantable loop record er 02/18/2022 Overview (02/18/2022): Jampp LINQ11 Loop Recorder. Dx; Syncope, Palpitations. DOI [...] w/r/t gut microbiome. Referred to ADA and iLive websites for additional information on topics including [...] not improve, I recommend her seeing a psych therapist or CRS. Anxiety and depression 08/04/2017 Panic [...] normal. Assessment & Plan (06/19/2020 3:56 PM ABLE BODIED SEAMAN): She presents with extensive prior workup for [...] reflex an refer to rheumatology here at [facility] for second opinion on her joint issues. 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 Not on file [...] CHECK - REMOTE Routine 06/28/2024 10:11 AM ABLE BODIED SEAMAN Syncope and collapse Palpitations CELL COUNT W/REFLEX DIFFERENTIAL, BODY FLUID Routine 06/10/2024 10:50 AM ABLE BODIED SEAMAN Chronic pain of right knee CELL DIFFERENTIAL, BODY FLUID Routine 06/10/2024 10:50 AM ABLE BODIED SEAMAN CRYSTAL ANALYSIS, BODY FLUID Routine 06/10/2024 10:50 AM ABLE BODIED SEAMAN Chronic pain of right knee MYCOLOGY (FUNGAL) CULTURE AND STAIN Routine 06/10/2024 8:37 AM ABLE BODIED SEAMAN MYCOBACTERIOLOGY AFB CULTURE AND ACID-FAST STAIN Routine 06/10/2024 8:37 AM ABLE BODIED SEAMAN AEROBIC AND ANAEROBIC CULTURE AND GRAM STAIN Routine 06/10/2024 8:37 AM ABLE BODIED SEAMAN US GUIDED ARTHROCENTESIS MAJOR JOINT Schedule Routine, Read Routine (OP Routine) 06/10/2024 8:22 AM ABLE BODIED SEAMAN Chronic pain of right knee XR KNEE RIGHT 4 OR MORE VIEWS Schedule Routine, Read Routine (OP Routine) 06/04/2024 7:31 AM ABLE BODIED SEAMAN Chronic pain of right knee CRP (ACUTE PHASE) Routine 06/02/2024 3:5 5 PM ABLE BODIED SEAMAN Acute knee pain, unspecified laterality ERYTHROCYTE SEDIMENTATION RATE Routine 06/02/2024 3:55 PM ABLE BODIED SEAMAN Acute knee pain, unspecified laterality DEVICE CHECK - REMOTE Routine 05/24/2024 2:20 PM ABLE BODIED SEAMAN Syncope and collapse Palpitations DIAGNOSTIC MAMMOGRAM BILATERAL W JAVAN Schedule Routine, Read Routine (OP Routine) 02/28/2022 11:30 AM CDT Mass of breast, unspecified laterality COLONOSCOPY 07/20/2020 9:05 AM ABLE BODIED SEAMAN from Last 3 Months or Most Recently Relevant to Health Maintenance Results * DEVICE CHECK - REMOTE (08/10/2024 7:47 AM CDT) Anatomical Region Laterality Modality Other Narrative 08/12/2024 7:57 AM CDT Jampp LINQ11 Loop Recorder. Dx; Syncope, Palpitations. DOI 02/11/2022Tanner. [facility]link remote f/u. Routine ILR remote. Normal device function. Battery function-good. Presenting rhythm: Sinus tachycardia Medications: No anticoagulation or cardiac meds Counters since last scheduled transmission on 07/23/24. No auto or patient recorded episodes noted. See scanned report. [facility] remote f/u 09/20/24. Nestor Romero, RN Shekhar Garcia MD [facility] Final Result * NM Bone Imaging 3 [...] it. Electronically signed by: Garrett Diaz MD us Robert Gonzalez MD IMG CT PROCEDURES Fi nal Result * DEVICE CHECK - REMOTE (07/23/2024 6:58 AM CDT) Anatomical Region Laterality Modality Other Narrative 07/23/2024 3:38 PM CDT Jampp LINQ11 Loop Recorder. Dx; Syncope, Palpitations. DOI [...] [facility] remote f/u 08/09/24. Nestor Romero, FLORIDALMA us Shekhar Garcia MD [facility] Final Result * POCT lipid panel [...] DEVICE CHECK - REMOTE (06/28/2024 10:11 AM ABLE BODIED SEAMAN) Anatomical Region Laterality Modality Other Narrative 07/01/2024 4:00 PM ABLE BODIED SEAMAN Jampp LINQ11 Loop Recorder. Dx; Syncope, Palpitations. DOI 02/11/2022-Linh. [facility]link remote f/u. Routine ILR remote. Normal device function. Battery function-Good. Presenting rhythm: VS, regular 70 bpm. Medications: no cardiac meds noted. Counters since last scheduled transmission on 05/17/2024. No auto or patient recorded episodes noted. See scanned report. [facility] remote f/u 08/09/2024. Nicole Gamez RN Shekhar Garcia MD [facility] Final Result * Crystal Analysis, Body Fluid (06/10/2024 10:50 AM ABLE BODIED SEAMAN) Specimen type, fld Synovial Crystals None Seen None Seen [facility] Fluid 06/10/2024 10:5 0 AM ABLE BODIED SEAMAN 06/10/2024 12:14 PM ABLE BODIED SEAMAN Robert Gonzalez MD LAB BODY FLUIDS AND STOOLS ORDERABLES Final Result Performing Organization Address [facility] Co de Phone Number [facility] Department [place] [address] * Cell Differential, Body Fluid (06/10/2024 10:50 AM ABLE BODIED SEAMAN) Total cells diffed 100 cells Comment: Interpretive [...] CERNER [facility] Fluid 06/10/2024 10:5 0 AM ABLE BODIED SEAMAN 06/10/2024 12:14 PM ABLE BODIED SEAMAN Jose Alberto Bridges MD LAB BODY FLUIDS AND STOO LS ORDERABLES Final Result Performing Organization Address [facility] de Phone Number [facility] Department [place] [address] * (ABNORMAL) Cell count w/rflx diff, body fluid (06/10/2024 10:50 AM ABLE BODIED SEAMAN) Specimen type, fld Synovial Color, fld Red CERNER BJ Clarity, fld Cloudy(A) Clear CERNER BJ Nucleated cells, fld 409 /cumm [facility] Comment: Interpretive Data Unless otherwise specified, the reference range and other method performance specifications have not been established for CSF/Body Fluid tests. The test results should be integrated into the clinical context for interpretation. Current interpretive data was last revised on 2018. RBC, fld 38,567 /cumm C[facility] Fluid 06/10/2024 10:5 0 AM ABLE BODIED SEAMAN 06/10/2024 12:14 PM ABLE BODIED SEAMAN Jose Alberto Bridges MD LAB BODY FLUIDS AND STOO LS ORDERABLES Final Result Performing Organization Address [facility] Co de Phone Number [facility] Department [place] [address] * Mycology (fungal) culture and stain Aspirate Knee, right (06/10/2024 8:37 AM ABLE BODIED SEAMAN) Direct Specimen Exam Stain: No Fungal elements seen. Report Final Report: No growth of fungus [facility] Aspirate (Knee, right) 06/10/2024 8:37 AM ABLE BODIED SEAMAN 06/10/2024 11:33 AM ABLE BODIED SEAMAN Narrative [facility] - 07/08/2024 7:25 AM ABLE BODIED SEAMAN Right Knee Aspiration Fluid specimen received in sterile syringe. Testing performed by [facility] Microbiology Laboratory ([phone]). us Robert Gonzalez MD LAB MICROBIOLOGY - G ENERAL ORDERABLES Final Result Performing Organization Address [facility] Co de Phone Number [facility] Department [place] [address] * Mycobacteriology (AFB) culture and acid-fast stain Aspirate Knee, right (06/10/2024 8:37 AM ABLE BODIED SEAMAN) Direct Specimen Exam Stain: No Acid-fast bacilli seen Report Final Report: No growth of acid-fast bacilli [facility] Aspirate (Knee, right) 06/10/2024 8:37 AM ABLE BODIED SEAMAN 06/10/2024 11:33 AM ABLE BODIED SEAMAN Narrative [facility] - 08/09/2024 2:25 PM CDT Right Knee Aspiration Fluid specimen received in sterile syringe. Testing performed by [facility] ([phone]). us Robert Gonzalez MD LAB MICROBIOLOGY - G ENERAL ORDERABLES Final Result Performing Organization Address [facility] Co de Phone Number [facility] Department [place] [address] * Aerobic and anaerobic culture and gram stain Aspirate Knee, right (06/10/2024 8:37 AM ABLE BODIED SEAMAN) Direct Specimen Exam Stain: No polymorphonuclear leukocytes seen. No organisms seen. Report Final Report: No growth [facility] Aspirate (Knee, right) 06/10/2024 8:37 AM ABLE BODIED SEAMAN 06/10/2024 11:33 AM ABLE BODIED SEAMAN Narrative [facility] - 06/15/2024 11:24 AM ABLE BODIED SEAMAN Right Knee Aspiration Fluid specimen received in sterile syringe. Testing performed by [facility] ([phone]) Specimens submitted from normally sterile body sites [...] Final Result Performing Organization Address [facility] Co de Phone Number [facility] Department [place] [address] * US Guided Aspiration or Injection of Major Joint (06/10/2024 8:22 AM ABLE BODIED SEAMAN) Anatomical Region Laterality Modality Entire body N/A Radio Fluoroscop y 06/10/2024 10:5 9 AM ABLE BODIED SEAMAN Impressions 06/10/2024 11:32 AM ABLE BODIED SEAMAN Left knee joint aspiration under ultrasound guidance. 5 mL clear red fluid was aspirated and sent for cell count, crystal evaluation, Gram stain, and culture. Dictated by: Jason Gold MD The radiology attending physician has personally reviewed this study, and had reviewed and/or edited this written report and agrees with it. Electronically signed by: Jose Alberto Bridges M.D. Narrative 06/10/2024 11:32 AM ABLE BODIED SEAMAN EXAMINATION: Right knee joint aspiration under ultrasound [...] was obtained. Prior to beginning the procedure, [place] Protocol was performed to confirm the patient's [...] was obtained. Prior to beginning the procedure, [place] Protocol was performed to confirm the patient's [...] Gram stain, and culture. Dictated by: Jason Godl MD The radiology attending physician has personally reviewed this study, and had reviewed and/or edited this written report and agrees with it. Electronically signed by: Jose Alberto Bridges M.D. Robert Gonzalez MD IM US PROCEDURES Fi nal Result * XR Knee Right 4 or More Views (06/04/2024 7:31 AM ABLE BODIED SEAMAN) Anatomical Region Laterality Modality Lower Extremities, Knee Right Computed Radiography 06/04/2024 8:41 AM ABLE BODIED SEAMAN Impressions 06/04/2024 8:41 AM ABLE BODIED SEAMAN 1. New total right knee arthroplasty in near-anatomic position with neutral mechanical axis. Electronically signed by: Seb Farris M.D. Narrative 06/04/2024 8:41 AM ABLE BODIED SEAMAN EXAMINATION: XR KNEE RIGHT 4 OR MORE [...] (ABNORMAL) Erythrocyte sedimentation rate (06/02/2024 3:55 PM ABLE BODIED SEAMAN) Erythrocyte sedimentation rate 74(H) 1 - 20 mm/hr Blood 06/02/2024 3:55 PM ABLE BODIED SEAMAN 06/02/2024 4:32 PM ABLE BODIED SEAMAN Robert Gonzalez MD LAB BLOOD ORDERABLES Final Result Performing Organization Address City/[facility]/ZIP Co de Phone Number [facility] [address] [facility] [employer] [address] * (ABNORMAL) CRP (acute phase) (06/02/2024 3:55 PM ABLE BODIED SEAMAN) CRP 24.2(H) <=10.0 mg/L Blood 06/02/2024 3:55 PM ABLE BODIED SEAMAN 06/02/2024 4:32 PM ABLE BODIED SEAMAN Robert Gonzalez MD LAB BLOOD ORDERABLES Final Result [facility] [address] [facility] [place] [address] * DEVICE CHECK - REMOTE (05/24/2024 2:20 PM ABLE BODIED SEAMAN) Anatomical Region Laterality Modality Other Narrative 06/10/2024 4:20 PM ABLE BODIED SEAMAN Medtronic REVEAL LinQ II implanted February 11, 2022 [...] Continue to monitor remotely. Vinod Bates Device Field Irrigation Worker us Shekhar Garcia MD [facility] Final Result * Diagnostic Mammogram Bilateral [...] Final Result * COLONOSCOPY (07/20/2020 9:05 AM ABLE BODIED SEAMAN) Anatomical Region Laterality Modality Other Narrative Procedure Note Fausto Delgado MD - 07/20/2020 9:05 AM CST [facility] Patient Name: Corrie Lieberman Procedure Date: 07/20/2020 9:05 AM Date of : 1975 Admit Type: Outpatient Age: 45 Gender: Female Attending MD: Fausto Delgado M.D. Room: [facility] ENDOSCOPY ROOM 3 Note Status: [...] The scope was passed under direct vision.The [id number] endoscope was introduced through the anus [...] 9:05 AM Recognized by the [place] Society for Gastrointestinal Endoscopy for promoting quality in endoscopy Fausto Delgado MD ENDOSCOPY PROCEDURES Final Re sult from Last 3 Months or Most Recently Relevant to Health Maintenance Insurance [place] [employer] MEDICARE GOLD Ingenic ACCESS PR T MEDICARE [facility] [place] [employer] [place] Advance Directives For more information, please contact: [phone] * Full Code (Latest Code Status on File) Date Activated Date Inactivated Comments 07/20/2020 8:24 AM 07/20/2020 2:42 PM Care Teams Bus Steward Relationship Specialty Start Date End Date Morena Sprague DO PCP - General Family Medicine 03/13/21
--- OUTSIDE RECORDS SUMMARY | 2024-08-16 08:20 | XMS_ITS | Clinical Summary ---
Author Organization [facility] Address [address] [place], [place] [id number] Care Team Providers Care Chief Psychology Name Role Phone Morena Sprague DO Primary Care Provider [phone] Social History Tobacco Use Types Packs/Day Years Used Date Smoking Tobacco: Never Assessed Comments Unknown Sex and Gender Information Value Date Recorded Sex Assigned at Not on file Legal Sex Female 8:35 AM OYSTER GROWER Gender Identity Not on file Sexual Orientation [...] patient's age to complete this topic Insurance [facility] Care Teams Chief Psychology Relationship Specialty Start Date End Date Morena Sprague DO [address] [place] [address] PCP - General FAMILY PRACTICE 06/03/22
--- OUTSIDE RECORDS SUMMARY | 2024-08-16 08:20 | XMS_ITS | Encounter Summary ---
Author Organization 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
--- OUTSIDE RECORDS SUMMARY | 2024-08-16 08:20 | XMS_ITS | Encounter Summary ---
Author Organization [facility] Address [address] [place] [address] Phone Care Team Providers Care Quarter Lining Smoother Name Role Phone Geovanny Mayberry Primary Care Provider [phone] Zina Davis MD Primary Care Provider Emelina Singh DPT Unavailable [phone] Morena Sprague DO Primary Care Provider [phone] Encounter Details Date Type Department Care Team (Latest Contact Info) Description 10/05/2014 Orders Only [facility] WGT Scanning, Provider Social History Tobacco Use Types Packs/Day Years Used Date Smoking Tobacco: Never Assessed Comments Unknown Sex and Gender Information Value Date Recorded Sex Assigned at Not on file Legal Sex Female 2:20 AM INFORMATICS NURSE SPECIALIST Gender Identity Female 08/21/2020 9:29 PM CDT [...] on filedocumented in this encounter Care Teams Quarter Lining Smoother Relationship Specialty Start Date End Date Geovanny Mayberry [address] [place] [address] PCP - General 08/04/17 03/04/19 Zina Davis MD [address] [place] [address] PCP - General Family Practice 03/05/19 03/12/21 Morena Sprague DO [address] [place] [address] PCP - General Family Medicine 03/13/21 Emelina Singh DPT [address] [place] [address] Physical Therapist Physical Therapy 06/23/19 03/16/20 documented as of this encounter
[2024-08-16 12:22] LABS: Alanine Aminotransferase 17 U/L (6-35); Albumin Level 4.2 g/dL (3.5-5.1); Alkaline Phosphatase 83 U/L (38-126); Anion Gap 8 mmol/L (4-12); Aspartate Amino Transferase 41 U/L (14-36); Bilirubin,Total 0.6 mg/dL (0.2-1.3); Blood Urea Nitrogen 16 mg/dL (7-17); Calcium 9.3 mg/dL (8.4-10.2); Carbon Dioxide 30 mmol/L (22-30); Chloride 103 mmol/L (98-107); Estimated Glomerular Filt Rate > 60; Glucose 76 mg/dL (65-110); Potassium 4.2 mmol/L (3.4-5.0); Sodium 141 mmol/L (137-145)
[2024-08-16 12:36] LABS: Basophils Percent Auto 0.4 % (0.2-1.2); Eosinophils Absolute Auto 0.1 K/mm3 (0-0.3); Eosinophils Percent Auto 1.1 % (0-4.4); Hematocrit 39.7 % (37.0-47.0); Hemoglobin 11.7 g/dL (12.0-15.0); Immature Granulocyte Absolute 0.02 K/mm3 (0.00-0.031); Immature Granulocyte Percent A 0.3 % (0-0.5); Lymphocytes Absolute Auto 1.95 K/mm3 (0.9-3.2); Lymphocytes Percent Auto 26.1 % (18.3-44.2); Mean Corpuscular HGB Conc 29.5 g/dl (32-36); Mean Corpuscular Hemoglobin 26.9 pg (26-34); Mean Corpuscular Volume 91.3 fl (80-100); Mean Platelet Volume 11.6 fl (7.4-10.4); Monocytes Absolute Auto 0.8 K/mm3 (0.1-0.6); Monocytes Percent Auto 11.3 % (2.6-8.5); Neutrophils Absolute Auto 4.5 K/mm3 (1.3-6.7); Neutrophils Percent Auto 60.8 % (45.5-73.1); Platelet Count Result 412 k/mm3 (150-375); Red Blood Count 4.35 M/mm3 (4.2-5.4); Red Cell Distribution Width 18.7 % (11.5-14.5); White Blood Count 7.5 K/mm3 (4.5-10.0)
[2024-08-16 12:45] LABS: Iron 40 ug/dL (37-170)
[2024-08-16 12:55] LABS: Percent Iron Saturation 17 % (20-50)
[2024-08-16 13:06] LABS: Cholesterol 210 mg/dL (0-200); HDL Direct 75 mg/dL; Triglycerides 62 mg/dL (<150)
[2024-08-16 13:08] LABS: Anisocytosis 1+; Hypochromasia 1+; Platelet Estimate Increased (Adequate); Schistocytes None Seen
[2024-08-16 13:18] LABS: LDL Cholesterol Direct 92 mg/dL
[2024-08-16 15:43] LABS: Folic Acid 19.7 ng/mL (2.76->20)
== END 2024-08-16 08:07 | disposition home or self-care (01) ==
LOC: ANHGOSHLAB 08:09
PROVIDERS: Internal Medicine Hematology & Oncology; PCP Family Medicine; Visit Provider Nurse Practitioner
DX: D64.9 Anemia, unspecified (principal); E78.5 Hyperlipidemia, unspecified
CPT/HCPCS: 36415; 80053; 80061; 82607; 82728; 82746; 83540; 83550; 85025

== ENCOUNTER 2024-10-20 12:31 | Outpatient (CLI) | payer BC, MEDICARE, SELFPAY ==
--- NOTE | ~2024-10-20 | CT_ITS ---
CT Scan of the Chest without Contrast: Clinical Indication: Cough Technique: Contiguous sections were acquired throughout the chest without intravenous contrast. Dose reduction technique was used on this scan by utilizing automated exposure control and iterative recon struction technique. The dose-length product (DLP) was 304.59 mGy-cm. COMPARISON: 11/11/2023 Findings: There is no evidence of any significant mediastinal, hilar or axillary lymphadenopathy. Small pericar dial effusion present. There is extensive, somewhat circumferential pleural thickening in the right hemithorax/right lung, s imilar to prior exam. There is chronic atelectasis or scarring in the right lung, similar to prior ex am. Left lung is clear. Images through the upper abdomen reveal evidence of prior bariatric surgery and cholecystectomy. Impression: Circumferential pleural thickening of the right hemithorax is stable from prior exam. Patchy right halina ng atelectasis or scarring is also unchanged. Small pericardial effusion. Reviewed, dictated and finalized at location . Impression: Circumferential pleural thickening of the right hemithorax is stable from prior exam. Patchy right lung atelectasis or scarring is also unchanged. Small pericardial effusion.
== END 2024-10-20 12:32 | disposition home or self-care (01) ==
LOC: GOSHIMG 12:31
PROVIDERS: PCP Family Medicine; Visit Provider Family Medicine
DX: R05.9 Cough, unspecified (principal); R91.8 Other nonspecific abnormal finding of lung field; I31.39 Other pericardial effusion (noninflammatory)
CPT/HCPCS: 71250

== ENCOUNTER 2024-10-20 12:33 | Outpatient (CLI) | payer BC, MEDICARE, SELFPAY ==
--- NOTE | ~2024-10-20 | XR_ITS ---
Lumbosacral Spine: AP and lateral views Clinical History: Pain Findings: The normal lordotic curve is maintained. The vertebral bodies and posterior elements are i ntact. The intervertebral disc spaces are preserved. Extensive facet arthropathy present in the lumb ar spine. The sacroiliac joints are normally outlined. Impression: Extensive facet arthropathy throughout the lumbar spine. Reviewed, dictated and finalized at location . Impression: Extensive facet arthropathy throughout the lumbar spine.
--- NOTE | ~2024-10-20 | XR_ITS ---
Right Shoulder Technique: AP and scapular Y views were obtained. Clinical History: Pain Findings: No fracture or dislocation is seen. Osseous alignment is anatomic. The glenohumeral and acr omioclavicular joint spaces are preserved. Soft tissues are unremarkable. Impression: Unremarkable right shoulder radiographs. Reviewed, dictated and finalized at [facility]. Impression: Unremarkable right shoulder radiographs.
--- NOTE | ~2024-10-20 | XR_ITS ---
Left Knee Technique: AP, lateral, and sunrise views were obtained. Clinical History: Pain Findings: No fracture or dislocation is seen. Left knee arthroplasty in place. No hardware complicati on. Soft tissues are unremarkable. No joint effusion is seen. Impression: No acute abnormality. Left knee arthroplasty in place. Reviewed, dictated and finalized at location . Impression: No acute abnormality. Left knee arthroplasty in place.
--- NOTE | ~2024-10-20 | XR_ITS ---
Right Knee Technique: AP, lateral, and sunrise views were obtained. Clinical History: Pain Findings: No fracture or dislocation is seen. Right knee arthroplasty in place. No hardware convocati on. Vguap-ff-[id number] joint effusion is seen. Impression: Small to moderate joint effusion. Right knee arthroplasty. Reviewed, dictated and finalized at location . Impression: Small to moderate joint effusion. Right knee arthroplasty.
--- NOTE | ~2024-10-20 | XR_ITS ---
Left Shoulder Technique: AP and scapular Y views were obtained. Clinical History: Pain Findings: No fracture or dislocation is seen. Osseous alignment is anatomic. The glenohumeral and acr omioclavicular joint spaces are preserved. Soft tissues are unremarkable. Impression: Unremarkable left shoulder radiographs. Reviewed, dictated and finalized at [facility]. Impression: Unremarkable left shoulder radiographs.
--- NOTE | ~2024-10-20 | XR_ITS ---
Cervical Spine: AP, lateral, open-mouth views Clinical History: Pain Findings: The normal lordotic curve is maintained. No fracture. There is minimal grade 1 retrolisthes is of C5 over C6. There is moderate to advanced degenerative disc narrowing at C5-C6 and C6-C7. Pre-v ertebral soft tissues are unremarkable. Impression: Mild degenerative spondylosis overall, as above. Reviewed, dictated and finalized at location . Impression: Mild degenerative spondylosis overall, as above.
== END 2024-10-20 12:34 | disposition home or self-care (01) ==
LOC: GOSHIMG 12:35
PROVIDERS: PCP Pain Medicine Interventional Pain Medicine; Visit Provider Pain Medicine Interventional Pain Medicine
DX: M25.569 Pain in unspecified knee (principal); M25.519 Pain in unspecified shoulder; M54.12 Radiculopathy, cervical region; M54.16 Radiculopathy, lumbar region; M12.88 Other specific arthropathies, not elsewhere classified, other specified site; M43.02 Spondylolysis, cervical region; Z96.652 Presence of left artificial knee joint; Z96.651 Presence of right artificial knee joint; M25.461 Effusion, right knee
CPT/HCPCS: 72040; 72100; 73030; 73562

== ENCOUNTER 2024-12-03 07:56 | Outpatient (CLI) | payer BC, MEDICARE, SELFPAY ==
--- OUTSIDE RECORDS SUMMARY | 2024-12-03 08:00 | XMS_ITS | Encounter Summary ---
Author Organization [facility] Address [address] [place] [address] Phone Care Team Providers Care Fence Supervisor Name Role Phone Morena Sprague Primary Care Provider [phone] Omar Valenzuela Unavailable [phone] Encounter Details Date Type Department Care Team [...] Average Number of Drinks Not on file 021 Frequency of Binge Drinking Not on file 06/2020 Exercise Vital Sign Answer Date Recorde d Days of Exercise per Week 7 days 2018 Minutes of Exercise per Session 20 min 04/28/2019 Comments No Sex and Gender Information Value Date Recorded Sex Assigned at Not on file Legal Sex Female 2: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
--- OUTSIDE RECORDS SUMMARY | 2024-12-03 08:00 | XMS_ITS | Clinical Summary ---
Author Organization [facility] Address [address] [place] [address] Care Team Providers Care Gas Inspector Name Role Phone Morena Sprague DO Primary Care Provider [phone] Omar Valenzuela PA Unavailable [phone] Allergies Active Allergy Reactions Criticality Noted Date Comments Amoxicillin Rash,Other (See comments) Medium 03/18/2017 Skin sloughing Erythromycin Vomiting Low 08/04/2017 Ibuprofen Rash,Other (See comments) Medium 08/04/2017 Latex Rash Medium 03/18/2017 Nsaids (Non-Steroidal Anti-Inflammatory Drug) Other (See comments) Low 03/18/2017 Bypass gastric Penicillins Rash,Other (See comments) Medium 08/04/2017 Skin sloughing Tolmetin Unknown Low 03/18/2017 Bypass gastric Medications cholecalcifero l (VITAMIN D-3) 10,000 unit capsule Take 1 capsule (10,000 Units total) by mouth daily Active multivitamin capsule Take 1 capsule by mouth daily Active DULoxetine DR (CYMBALTA) 60 mg capsule Take 1 capsule (60 mg total) by mouth daily Active CALCIUM ORAL Take by mouth Unsure med dosage every day Active gabapentin (NEURONTIN) 600 mg tablet Take 1 tablet (600 mg total) by mouth 3 (three) times a day Active rOPINIRole (REQUIP) 1 mg tabletIndicati ons:Restless Legs Syndrome Take 1 tablet (1 mg total) by mouth 2 (two) times a day After dinner and bedtime 1 Active ARIPiprazole (ABILIFY) 10 mg tablet Take 1 tablet (10 mg total) by mouth 3 Active sulfaSALAzine EN (AZULFIDINE EN) 500 mg EC tablet Take 2 tablets (1,000 mg total) by mouth 2 (two) times a day 3 Active baclofen (LIORESAL) 10 mg tablet Take 1 tablet (10 mg total) by mouth as needed for muscle spasms 4 Active doxepin (SINEquan) 10 mg capsule TAKE 1 CAPSULE BY MOUTH EVERYDAY AT BEDTIME Active clobetasoL (TEMOVATE) 0.05 % external solution APPLY ONCE DAILY TO PSORIASIS AT BEDTIME. 5 Active clobetasoL (TEMOVATE) 0.05 % ointment PLEASE SEE ATTACHED FOR DETAILED DIRECTIONS 5 Active leflunomide (ARAVA) 20 mg tablet Take 1 tablet (20 mg total) by mouth daily 5 Active meclizine (ANTIVERT) 25 mg tablet TAKE 1 TABLET BY MOUTH 3 TIMES A DAY NEEDED FOR DIZZINESS 5 Active omeprazole (PriLOSEC) 40 mg capsule Oral 4 Active divalproex ER (DEPAKOTE ER) 500 mg 24 hr tablet TAKE 1 TABLET TWICE A DAY BY ORAL ROUTE FOR 90 DAYS. 5 Active Zepbound 15 mg/0.5 mL pen injector INJECT 15 MG (0.5 ML) SUBCUTANEOUSLY WEEKLY 5 Active ixekizumab (Taltz Autoinjector, 2 Pack,) auto-injector Inject 1 mL (80 mg total) under the skin every 30 (thirty) days 5 Active ascorbic acid (VITAMIN C) 500 mg tablet,chewabl e Take 1 tablet/chew tab (500 mg total) by mouth 2 (two) times a day 60 tablet/chew tab 5 Active ondansetron (ZOFRAN) 4 mg tabletIndicati ons:Prevention of Post-Operative Nausea and Vomiting Take 1 tablet (4 mg total) by mouth every 6 (six) hours as needed for nausea or vomiting 30 tablet 1 5 Active Additional Information Patient not taking.Reported on 10/11/2024 senna-docusate (PERICOLACE) 8.6-50 mg 1-2 times daily as needed for constipation 60 tablet 1 5 Active Additional Information Patient not taking.Reported on 10/11/2024 oxyCODONE-acet aminophen (PERCOCET) 5-325 mg per tabletIndicati ons:Pain Take 1-2 tablets by mouth every 4 (four) hours as needed for pain 33 tablet 5 Active Additional Information Patient not taking.Reported on 10/11/2024 Active Problems Problem Noted Date Diagnosed Date Subdeltoid bursitis, left 09/02/2024 Arthritis of left acromioclavicular joint 2024 Incomplete [...] implantable loop record er 02/18/2022 Overview (02/18/2022): [email or web address] LINQ11 Loop Recorder. Dx; Syncope, Palpitations. DOI 02/11/2022- [employer] remote f/u. Palpitations 02/06/2022 Syncope and collapse [...] knee replacement 0 Preoperative cardiovascular examination 09/15/19 20 Assessment & Plan (11/17/2019 11:07 AM CDT): [...] w/r/t gut microbiome. Referred to ADA and [employer] and [employer] websites for additional information on topics [...] not improve, I recommend her seeing a district wildlife manager or CRS. Anxiety and depression 08/04/2017 Panic [...] normal. Assessment & Plan (06/19/2020 3:56 PM FILM EDITOR): She presents with extensive prior workup for [...] reflex an refer to rheumatology here at [facility] for second opinion on her joint issues. We will see her back in clinic after her endoscopies for further evaluation and to make decisions about potential treatments. Encounters Date Type Department Care Team Description 11/01/2024 7:45 AM CDT Ancillary Procedure [facility] [address] [place] [phone] Palpitations (Primary Dx); Syncope and collapse; Status post placement of implantable loop recorder 10/11/2024 3:30 PM CDT Office Visit [facility] [address] [place] [phone] Omar Valenzuela PA Aftercare following surgery of the musculoskeletal system (Primary Dx) 09/29/2024 Telephone [facility] [address] [place] [address] [place] [phone] Niko Boone PA 09/28/2024 Orders Only [facility] [address] [place] [address] [address] [place] [phone] Niko Boone PA 09/22/2024 Telephone [facility] [address] [place] [address] Cruz Riggins ATC 09/21/2024 7:58 AM CDT Anesthesia Event [facility] Operating Room [address] [place] [address] Emerson Haines MD Alexander, Jeffrey Michael, DO 09/21/2024 7:45 AM CDT - 09/21/2024 9:45 AM CDT Surgery [facility] Operating Room [address] [place] [address] Gamal Donahue MD Left shoulder arthroscopy, distal claviculectomy including distal articular surface, decompression of subacromial space with partial acromioplasty with coracoacromial release and biceps tenotomy- 09/21/2024 5:56 AM CDT - 09/21/2024 12:05 PM CDT Hospital Encounter [facility] Operating Room [address] [place] [address] Gamal Donahue MD Incomplete tear of left rotator cuff, unspecified whether traumatic (Primary Dx); Subdeltoid bursitis, left; Arthritis of left acromioclavicular joint Discharge Disposition: Discharge to home or self care 09/20/2024 7:30 AM CDT Ancillary Procedure [facility] [address] [facility] [address], [place] [phone] Status post placement of implantable loop recorder (Primary Dx); Syncope and collapse; Palpitations 09/06/2024 Orders Only [facility] [address] [facility] [address] [place] [address] Gamal Donahue MD Subdeltoid bursitis of left shoulder joint (Primary Dx); Incomplete tear of left rotator cuff, unspecified whether traumatic; Arthritis of left acromioclavicular joint from Last 3 Months Immunizations Immunization Administration [...] SURGERY 05/12/2006 - 05/11/2007 knee KNEE SURGERY Bilateral replaced GALLBLADDER SURGERY OTHER SURGICAL HISTORY removal of thyroid tumor HYSTERECTOMY 05/12/2018 - 05/11/2019 CYSTOCELE REPAIR 05/12/2018 - 05/11/2019 RECTOCELE REPAIR BREAST SURGERY 05/12/2019 - 05/11/2020 BARIATRIC SURGERY 05/12/2014 - 05/11/2015 BLADDER SURGERY 05/12/2018 - 05/11/2019 [place] ARTHRP KNE CONDYLE&PLATU MEDIAL&LAT COMPARTMENTS 03/15/2020 Left [place] KNEE ARTHROSCOPY ABDOMINAL SURGERY 1994 SKIN BIOPSY Medical History Medical History Date Comments Sleep apnea Proctitis Osteoarthritis Fibromyalgia Interstitial cystitis Rectocele Cystocele with rectocele Fibromyalgia, primary Pelvic floor dysfunction Joint pain Incontinence GERD (gastroesophageal reflux disease) Depression 1994 Anxiety 2009 Autoimmune disease 2020 Motion sickness Ankylosing spondylitis (HCC) Essential hypertension 10/23/2021 Pneumonia Pleural effusion drain 6 times Family History Medical History Relation Name Comments [...] you have a drink containing alcohol? Never 10/11/2024 Q2: How many drinks containi ng alcohol do you have on a typical day when you are drinking? Patient does not drink Q3: How often do you have si x or more drinks on one occasion? Never 10/11/2024 Exercise Vital Sign Answer Date Recorde d Days of Exercise per Week 7 days 2018 Minutes of Exercise per Session 20 min 04/28/2019 Personal Safety Answer Date Recorded Have you ever been in or are you currently in a harmful physical or emotional relationship or is someone making you feel afraid or unsafe? 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 Not on file [...] Sign Reading Time Taken Comments Blood Pressure 115/81 10/11/2024 3:28 PM CDT Pulse 92 10/11/2024 3:28 PM CDT Temperature 36.2 C (97.1 F) 09/21/2024 11:49 AM CDT Respiratory Rate 18 09/21/2024 11:49 AM CDT Oxygen Saturation 94% 09/21/2024 11:49 AM CDT Inhaled Oxygen Concentration - - Weight 89.8 kg (198 lb) 10/11/2024 3:28 PM CDT Height 177.8 cm (5' 10) 10/11/2024 3:28 PM CDT Body Mass Index 28.41 10/11/2024 3:28 PM CDT Plan of Treatment Health Maintenance Due Date Last Done Comments Depression Screening 1975 Hepatitis C Screening 1975 DTaP/Tdap/Td Vaccine (1 - Tdap) 02/26/1988 Hepatitis B Screening 1995 Regular Well Visit/Exam 18-64 1995 Breast Cancer Screening-Mammogram 02/28/2023 02/28/2022, 02/28/2022, 11/09/2020, Additional history exists Covid-19 Vaccine ( season) 2024 02/12/2022, 01/01/2021, 08/05/2020, Additional history exists Influenza Vaccine (#1) 2025 , 02/10/2020, 02/09/2019, Additional history exists Colon Cancer Screening-Colonoscopy 07/20/2030 07/20/2020 Pneumococcal vaccine <65 Aged Out No longer eligible based on patient's age to complete this topic Procedures Procedure Name Priority Date/Time Associated Diagnosis Comments DEVICE CHECK - REMOTE Routine 09/21/2024 10:52 AM CDT Syncope and collapse Palpitations [place] AN ELECTIVE ENDOTRACHEAL AIRWAY Routine 09/21/2024 8:19 AM CDT ARTHROSCOPY SHOULDER 09/21/2024 7:38 AM CDT Subdeltoid bursitis, left Incomplete tear of left rotator cuff, unspecified whether traumatic Arthritis of left acromioclavicular joint ANESTHESIA PERIPHERAL BLOCK Routine 09/21/2024 7:16 AM CDT PAIN BLOCK Routine 09/21/2024 6:12 AM CDT DIAGNOSTIC MAMMOGRAM BILATERAL W JVAAN Schedule Routine, Read Routine (OP Routine) 02/28/2022 11:30 AM CDT Mass of breast, unspecified laterality COLONOSCOPY 07/20/2020 9:05 AM FILM EDITOR from Last 3 Months or Most Recently Relevant to Health Maintenance Results * DEVICE CHECK - REMOTE (09/21/2024 10:52 AM CDT) Anatomical Region Laterality Modality Other Narrative 11/23/2024 8:25 PM CDT [email or web address] LINQ11 Loop Recorder. Dx; Syncope, Palpitations. DOI [facility] Routine IL[facility] remote. Normal device function. Battery function-good. Presenting rhythm: NSR Medications: No anticoagulation or cardiac meds Counters since last scheduled transmission on 08/09/24. No auto or patient recorded episodes noted. See scanned report. [facility] remote f/u 11/01/24. Nestor Romero RN us Shekhar Garcia MD CV CARDIAC SERVICES PROCE [facility] Final Result * [place] AN ELECTIVE ENDOTRACHEAL AIRWAY (09/21/2024 8:19 AM CDT) Narrative Nirali Hubbard CRNA - 09/21/2024 8:19 AM CDT Nirali Hubbard CRNA 09/21/2024 8:20 AM Airway Patient location: OR Urgency: elective Date/time: 09/21/2024 8:04 AM Indications for airway management: anesthesia Difficult airway: no Staff: Placed by: RESIDENT PROGRAM SPECIALIST: Nirali Hubbard CRNA Emergent airway documentation: Risks and benefits discussed: yes Consent obtained: yes Consent given by: patient Airway prep: Preoxygenated: yes Patient position: sniffing Mask difficulty assessment: 1 - vent by mask Spontaneous ventilation during airway: absent Sedation level during airway: GA Final airway details: Final airway type: endotracheal airway Tube type: ETT ETT size: 7.0 mm Cuffed: yes Technique used for successful ETT placement: video laryngoscopy Devices/Methods used in placement: stylet and cricoid pressure Insertion site: oral Video blade type: Romo Blade size: 3 Cormack-Lehane (video): grade I - full view of glottis Cuff inflated with: air ETT to lips: 20 cm Placement verified by: auscultation and CO2 detection Airway secured with: transpore tape Number of attempts: 1 us Emerson Haines MD ANESTHESIA ORDERABLES Final Result * BW IP ANE LDA PERIPHERAL NERVE CATHETER (09/21/2024 7:16 AM CDT) Narrative Emerson Haines MD - 09/21/2024 7:16 AM CDT Emerson Haines MD 09/21/2024 7:16 AM Peripheral Block Patient location during procedure: block room Start time: 09/21/2024 7:06 AM End time: 09/21/2024 7:16 AM Reason for block: post-op pain management per surgeon request Ultrasound image in chart or stored: yes Block type: catheter continuous infusion Laterality: left Block type: brachial plexus - interscalene Staff: Placed by: Anesthesiologist: Emerson Haines MD Procedure prep: Preprocedure checklist: patient identified, procedure contraindications assessed, site marked, procedure consent, surgical consent, IV checked, risks, benefits and alternatives discussed, monitors and equipment checked and timeout performed Patient position: sitting Procedure performed while patient: sedate with meaningful contact Monitoring: ECG, oximetry and blood pressure Supplemental O2: nasal cannula Prep solution: chlorhexidine/alcohol PPE: sterile gloves, provider hat/mask, sterile drape and sterile probe cover and gel Peripheral nerve block: Technique: ultrasound guided Needle gauge: 18 G Injection assessment: injection made incrementally with constant monitoring, local visualized surrounding nerve on ultrasound, negative aspiration for heme, no paresthesias noted, normal resistance to injection and see flowsheet for medication details Catheter: Catheter type: 20g non-stimulating catheter and catheter over needle Catheter over needle length: 51 Catheter depth at skin: 12 cm Catheter placement details: catheter position confirmed by ultrasound, no aspiration of heme, negative test dose, mastisol, steri-strips, dermal adhesive and occlusive dressing applied Assessment: Block success: complete Events: patient tolerated procedure well with no complications Emerson Haines MD ANESTHESIA ORDERABLES Final Result * Diagnostic Mammogram Bilateral W [...] it. Electronically signed by: Polly Ramesh M.D. Result [facility] Shabnam Graf MD PhD IMG MAMMO PROCEDURES Final Result * COLONOSCOPY (07/20/2020 9:05 AM FILM EDITOR) Anatomical Region Laterality Modality Other Narrative Procedure Note Fausto Delgado MD - 07/20/2020 9:05 AM CST [facility] Patient Name: Corrie Garcia Procedure Date: 07/20/2020 9:05 AM Date of : 1975 Admit Type: Outpatient Age: 45 Gender: Female Attending MD: Fausto Delgado M.D. Room: [facility] ENDOSCOPY ROOM 3 Note Status: Finalized [...] The scope was passed under direct vision.The [id number] endoscope was introduced through the anus [...] On: 07/20/2020 9:05 AM Recognized by the [place] [employer] for promoting quality in endoscopy Fausto Delgado MD ENDOSCOPY PROCEDURES Final Re sult from Last 3 Months or Most Recently Relevant to Health Maintenance Insurance [facility] AETNA MEDICARE [place] Advance Directives For more information, please contact: [phone] * Full Code (Latest Code Status on File) Date Activated Date Inactivated Comments 07/20/2020 8:24 AM 07/20/2020 2:42 PM Care Teams Gas Inspector Relationship Specialty Start Date End Date Morena Sprague DO PCP - General Family Medicine 03/13/21 Omar Valenzuela PA [address] [place] [address] [place] FERRER [address] Physician [place] Washer Orthopedic Surgery 09/21/24
--- OUTSIDE RECORDS SUMMARY | 2024-12-03 08:00 | XMS_ITS | Referral Summary ---
Author Organization [facility] Address [address] [place] [address] Care Team Providers Care Occupational Therapy Program Director Name Role Phone Morena Sprague DO Primary Care Provider + [phone] Omar Valenzuela PA Unavailable [phone] Encounters Date Type Department Care Team Description 11/01/2024 7:45 AM CDT Ancillary Procedure [facility] Cardiology [address] [facility] [address] [place] [phone] Palpitations (Primary Dx); Syncope and collapse; Status post placement of implantable loop recorder 10/11/2024 3:30 PM CDT Office Visit [facility] Orthopedic and Sports Medicine [address] [place] [phone] Omar Valenzuela PA Aftercare following surgery of the musculoskeletal system (Primary Dx) 09/29/2024 Telephone [facility] Orthopedics and Sports Medicine [address] [place] [address] [place] [phone] Niko Boone PA 09/28/2024 Orders Only [facility] Orthopedics and Sports Medicine [address] [place] [address] [address], [place] [address] Niko Boone PA 09/22/2024 Telephone [facility] Orthopedic and Sports Medicine [address] [place] [phone] Cruz Riggins ATC 09/21/2024 7:45 AM CDT - 09/21/2024 9:45 AM CDT Surgery [facility] [address] [place] [address] Gamal Donahue MD Left shoulder arthroscopy, distal claviculectomy including distal articular surface, decompression of subacromial space with partial acromioplasty with coracoacromial release and biceps tenotomy- 09/21/2024 7:58 AM CDT Anesthesia Event [facility] [address] [place] [address] Emerson Haines MD Alexander, Jeffrey Michael, 09/21/2024 5:56 AM CDT - 09/21/2024 12:05 PM CDT Hospital Encounter [facility] [address] [place] [address] Gamal Donahue MD Incomplete tear of left rotator cuff, unspecified whether traumatic (Primary Dx); Subdeltoid bursitis, left; Arthritis of left acromioclavicular joint Discharge Disposition: Discharge to home or self care 09/20/2024 7:30 AM CDT Ancillary Procedure [facility] Cardiology [address] [facility] [address], [place] [address] Status post placement of implantable loop recorder (Primary Dx); Syncope and collapse; Palpitations 09/06/2024 Orders Only [facility] Orthopedics and Sports Medicine [address] [facility] [address] [place] [address] Gamal Donahue MD Subdeltoid bursitis of left shoulder joint (Primary Dx); Incomplete tear of left rotator cuff, unspecified whether traumatic; Arthritis of left acromioclavicular joint from Last 3 Months Allergies Active Allergy [...] Recorder. Dx; Syncope, Palpitations. DOI 02/11/2022- Linh. [facility] remote f/u. Palpitations 02/06/2022 Syncope and collapse [...] PM CDT): Management options were discussed for STCAI including expectant, conservative (behavioral modification, pelvic floor [...] w/r/t gut microbiome. Referred to ADA and [employer] websites for additional information on topics including [...] not improve, I recommend her seeing a sports management professor or CRS. Anxiety and depression 08/04/2017 Panic attacks 08/04/2017 Morbid obesity due to excess calories 08/04/2017 Resolved Problems Problem Noted Date Diagnosed Date Resolved Date Crohn's disease of large int estine without complication 06/19/2020 08/29/2020 Overview (06/19/2020): IBD History: Diagnosis: inflammatory bowel disease, NOS. Year of Diagnosis: 2017 Year Symptoms Began: 2018 Phenotype: inflammatory Distribution: proctitis Complications: no known Extraintestinal manifestations: joint pain, negative for RA or psoriatic arthritis Perianal disease: no known Previously Failed Treatments: mesalamine suppositories, medrol dose pack (improved joint pain but not diarrhea). Current Treatment: none Surgeries (Date, type): hemorrhoid banding x2 Endoscopies (Date, findings, path): 01/2020 EGD and colonoscopy normal Imaging: CT 01/2020 normal. 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 Not on file [...] 10/11/2024 3:28 PM CDT Plan of Treatment Not on file Procedures Procedure Name Priority Date/Time Associated Diagnosis Comments DEVICE CHECK - REMOTE Routine 09/21/2024 10:52 AM CDT Syncope and collapse Palpitations [place] AN ELECTIVE ENDOTRACHEAL AIRWAY Routine 09/21/2024 8:19 AM CDT ARTHROSCOPY SHOULDER 09/21/2024 7:38 AM CDT Subdeltoid bursitis, left Incomplete tear of left rotator cuff, unspecified whether traumatic Arthritis of left acromioclavicular joint ANESTHESIA PERIPHERAL BLOCK Routine 09/21/2024 7:16 AM CDT PAIN BLOCK Routine 09/21/2024 6:12 AM CDT DIAGNOSTIC MAMMOGRAM BILATERAL W JAVAN Schedule Routine, Read Routine (OP Routine) 02/28/2022 11:30 AM CDT Mass of breast, unspecified laterality COLONOSCOPY 07/20/2020 9:05 AM REPAIR TECH from Last 3 Months or Most Recently Relevant to Health Maintenance Results * DEVICE CHECK - REMOTE (09/21/2024 10:52 AM CDT) Anatomical Region Laterality Modality Other Narrative 11/23/2024 8:25 PM CDT [employer] [id number] Loop Recorder. Dx; Syncope, Palpitations. DOI 02/11/2022Tanner. [facility] remote f/u. Routine ILR remote. Normal device function. Battery function-good. Presenting rhythm: NSR Medications: No anticoagulation or cardiac meds Counters since last scheduled transmission on 08/09/24. No auto or patient recorded episodes noted. See scanned report. [facility] remote f/u 11/01/24. Nestor Romero, RN Shekhar Garcia MD [facility] Final Result * [place] AN ELECTIVE ENDOTRACHEAL AIRWAY (09/21/2024 8:19 AM CDT) Narrative Nirali Hubbard CRNA - 09/21/2024 8:19 AM CDT Nirali Hubbard CRNA 09/21/2024 8:20 AM Airway Patient location: OR Urgency: elective Date/time: 09/21/2024 8:04 AM Indications for airway management: anesthesia Difficult airway: no Staff: Placed by: ECONOMIC DEVELOPMENT DIRECTOR: Nirali Hubbard CRNA Emergent airway documentation: Risks [...] PERIPHERAL NERVE CATHETER (09/21/2024 7:16 AM CDT) Emerson Hudson MD - 09/21/2024 7:16 AM CDT Emerson Haines MD 09/21/2024 7:16 AM Peripheral Block Patient location during procedure: block room Start time: 09/21/2024 7:06 AM End time: 09/21/2024 7:16 AM Reason for block: post-op pain management per surgeon request Ultrasound image in chart or stored: yes Block type: catheter continuous infusion Laterality: left Block type: brachial plexus - interscalene Staff: Placed by: Anesthesiologist: Emreson Haines MD Procedure prep: Preprocedure checklist: patient [...] patient tolerated procedure well with no complications us Emerson Haines MD ANESTHESIA ORDERABLES Final [...] Final Result * COLONOSCOPY (07/20/2020 9:05 AM REPAIR TECH) Anatomical Region Laterality Modality Other Narrative Procedure [...] The scope was passed under direct vision.The [id number] endoscope was introduced through the anus [...] On: 07/20/2020 9:05 AM Recognized by the [employer] for promoting quality in endoscopy Fausto Delgado MD ENDOSCOPY PROCEDURES Final Re sult from Last 3 Months or Most Recently Relevant to Health Maintenance Insurance [place] [employer] [place] Advance Directives For more information, please contact: [phone] * Full Code (Latest Code Status on File) Date Activated Date Inactivated Comments 07/20/2020 8:24 AM 07/20/2020 2:42 PM Care Teams Occupational Therapy Program Director Relationship Specialty Start Date End Date Morena Sprague DO PCP - General Family Medicine 03/13/21 Omar Valenzuela PA [address] [facility] [address] [place], [place] [address] [address] Physician Surveillance Supervisor Orthopedic Surgery 09/21/24
--- OUTSIDE RECORDS SUMMARY | 2024-12-03 08:00 | XMS_ITS | Encounter Summary ---
Author Organization [facility] Address [address] [place] [address] Phone Care Team Providers Care Lens Polisher Name Role Phone Geovanny Mayberry Primary Care Provider [phone] Zina Davis MD Primary Care Provider Emelina Singh DPT Unavailable [phone] Morena Sprague DO Primary Care Provider [phone] Omar Valenzuela Unavailable [phone] Encounter Details Date Type Department Care Team (Latest Contact Info) Description 10/05/2014 Orders Only [facility] Scanning, Provider Social History Tobacco Use Types Packs/Day Years Used Date Smoking Tobacco: Never Assessed Comments Unknown Sex and Gender Information Value Date Recorded Sex Assigned at Not on file Legal Sex Female 2:20 AM INSTALLER 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 Gender Identity Female 08/21/2020 9:29 PM CDT [...] on filedocumented in this encounter Care Teams Lens Polisher Relationship Specialty Start Date End Date Geovanny MayberryRadu [address] [place] [address] PCP - General 08/04/17 03/04/19 Zina Davis MD [address] [place] [address] PCP - General Family Practice 03/05/19 03/12/21 Morena Sprague DO [address] [place] [address] PCP - General Family Medicine 03/13/21 Emelina Singh DPT [address] [place] [address] Physical Therapist Physical Therapy 06/23/19 03/16/20 Omar Valenzuela PA [address] [place] [address] [place] [address] Physician Collar Separator Orthopedic Surgery 09/21/24 documented as of this encounter
--- OUTSIDE RECORDS SUMMARY | 2024-12-03 08:00 | XMS_ITS ---
Author Organization [facility] [employer] Address [address] [place] [address] Care Team Providers Care Material Damage Appraiser Name Role Phone Morena Sprague DO Primary Care Provider Aaron Enrique Unavailable [phone] REASON FOR VISIT Follow Up Medications Medication SIG (Take, Route, Frequency, Duration) Notes Start Date End Date Status Acetaminophen-Codein e 300-60 MG TAKE 1 TABLET BY MOUTH TWICE A DAY NEEDED Oral; Duration: 21 Days Active ARIPiprazole 15 MG TAKE ONE-HALF TABLET BY MOUTH ONCE A DAY FOR 30 DAYS (DOSE DECREASE); Duration: 90 Active ARIPiprazole 5 MG 1 tablet Orally Once a day; Duration: 30 days dose decrease Active Doxepin HCl 10 MG 1 capsule at bedtime Oral Once a day; Duration: 90 days Active Acetaminophen-Codein e 300-60 MG Oral; Duration: 21 Days Active DULoxetine HCl 60 MG 1 capsule Oral twic e a day; Duration: 90 days Active rOPINIRole HCl 1 MG 1 tablet Oral twice a day; Duration: 90 days Active rOPINIRole HCl 1 MG TAKE 1 TABLET BY MOUTH TWICE A DAY; Duration: 90 Active Divalproex Sodium ER 500 MG TAKE 1 TABLET TWICE A DAY BY ORAL ROUTE FOR 90 DAYS.; Duration: 90 Active Doxepin HCl 10 MG TAKE 1 CAPSULE BY MOUTH EVERYDAY AT BEDTIME; Duration: 90 Active Methocarbamol 500 MG Oral 09/24/2023 Active BUDESONIDE-FORMOTERO L HFA 80 MCG-4.5 MCG/ACTUATION AEROSOL INHALER *Reorder from [employer] for eRx and Interaction Alerts* 09/24/2023 Active Triamcinolone Acetonide 0.1% External 09/24/2023 Active OptiChamber Cher MISCELLANEOUS 09/24/2023 Active sulfaSALAzine 500 MG Oral 09/24/2023 Active Multivitamin - 1 tablet Orally Once a day Active Gabapentin 600 MG Oral 09/24/2023 A ctive ZEPBOUND 2.5 MG/0.5 ML SUBCUTANEOUS PEN INJECTOR *Reorder from [facility] for eRx and Interaction Alerts* 09/24/2023 Active Depakote ER 500 MG Oral 09/24/2023 Active Famotidine 40 MG Oral 09/24/2023 Ac tive Vitamin D 25 MCG (1000 UT) 1 tablet Orally Once a day Active Vitamin B Complex - as directed Orally Active Social History Tobacco Use: Social History Observation Description Date Details (start date - stop date) Never Smoker NA - NA Sex Assigned At : Social History Observation Description Sex Assigned At Female Tobacco Control (Standard) Question Answer Notes Tobacco use: Nonsmoker Encounters Encounter [facility] [address] [facility] [address] [place] [address] 11/23/2024 Aaron Pop Generalized anxiety disorder F41.1 ; Major depressive disorder, recurrent, mild F33.0 ; Other insomnia G47.09 and Restless legs syndrome G25.81 Assessments Encounter Date Diagnosis (ICD Code) Assessment Notes Treatment Notes Treatment Clinical Notes Section Notes 11/23/2024 Generalized anxiety disorder (ICD-10 - F41.1) stable 11/23/2024 Major depressive disorder, recurrent, mild (ICD-10 - F33.0) Cymbalta 60mg bid, abilify 10mg daily 11/23/2024 Other insomnia (ICD-10 - G47.09) Doxepin 10mg hs 11/23/2024 Restless legs syndrome (ICD-10 - G25.81) ropinirole 1mg hs Plan Of Treatment Medication Medication Name Sig Start Date Stop Date Notes ARIPiprazole 5 MG 1 tablet Orally Once a day; Duration: 30 days dose decrease Doxepin HCl 10 MG 1 capsule at bedtime Oral Once a day; Duration: 90 days DULoxetine HCl 60 MG 1 capsule Oral twic e a day; Duration: 90 days rOPINIRole HCl 1 MG 1 tablet Oral twice a day; Duration: 90 days Treatment Notes Assessment Notes Generalized anxiety disorder stable Major depressive disorder, recurrent, mi ld Cymbalta 60mg bid, abilify 10mg daily Other insomnia Doxepin 10mg hs Restless legs syndrome ropinirole 1mg hs Next Appt Details Follow Up: 4 Weeks, Reason: f/u anxiety, depression Provider Name:Aaron wood, 12/23/2024 09:30:00 AM, [address] [facility] [address], [address], [address], Progress Notes * ANNABELLA GARCIADOB:[birth year] (49 yo F)Acc No.[id number]:11/23/2024 Patient: Sonny ANNABELLA GE Provider: TIFFANI RAZO :1975 A ge:49 Y S ex:Female Date:11/23/2024 Address:[address] [place] [address] [address] [facility] Pcp:Morena Sprague DO Check In:03:55 PM CSTCheck O ut:04:05 PM VERIFICATION ENGINEER Subjective: * Chief Complaints: * 1 . Follow Up. * HPI: H istory of Presenting Problem: The patient was seen today for Tele visit. [place] ___x___patient is seen at HOME Pt is seen at other than Home [facility] the session was conducted via a HIPAA-compliance audio/visual platform. Lili/Hypomania e xcessive spending. Sleep disturbance P ain disturbing sleep: s ome days wake up with pain P rescribed sleep medications: c urrently taking medication to help sleep; tried belsomra, dayvigo, lunesta, ramelteon, trazodone n o longer uses CPAP since losing weight. D epression Screening: ORA-7 (2018 Edition) F eeling nervous, anxious, or on edge N ot at all N ot being able to stop or control worrying?Not at all W orrying too much about different things N ot at all T rouble relaxing N early every day B eing so restless that it is hard to sit still N early every day B ecoming easily annoyed or irritable N ot at all F eeling afraid as if something awful might happen N ot at all T otal ORA-7 Score 6 I nterpretation of Total ( 5 to 9) Mild D epression screening: PHQ-9 L ittle interest or pleasure in doing things?Not at all F eeling down, depressed, or hopeless N ot at all T rouble falling or staying asleep, or sleeping too much N early every day F eeling tired or having little energy N early every day P oor appetite or overeating N ot at all F eeling bad about yourself or that you are a failure, or have let yourself or your family down N ot at all T rouble concentrating on things, such as reading the newspaper or watching television N early every day M oving or speaking so slowly that other people could have noticed; or the opposite, being so fidgety or restless that you have been moving around a lot more than usual N early every day T houghts that you would be better off or of hurting yourself in some way N ot at all T otal Score 1 2 I nterpretation M oderate Depression [place]-Suicide Severity Rating Scale: Suicide Risk (CSRS-screener) i n the past one month Have you wished you were or wished you could go to sleep and not wake up? N o i n the past one month Have you actually had any thoughts of killing yourself? N o H ave you ever done anything, started to do anything, or prepared to do anything to end your life? N o P ast Psychiatric Medications: Lunesta, divalproex, zaleplon, ramelteon, armodafinil, Rozerem, trazodone,. * Medical History: I mported from [facility]: The patient has been under consistent monitoring and treatment from September to November 2023 for palpitations, syncope and collapse, and status post placement of an implantable loop recorder. These conditions were addressed during multiple ancillary procedures and orders by Dr. Shekhar Garcia at [facility] and through telephone consultations. The patient also had an office visit and telephone check-up with SIOMARA Nelson at [facility], for iron deficiency anemia, thrombocytosis, and B12 deficiency. External device data was also collected multiple times by Provider Abstract at [facility]. The patient's conditions have been managed through a combination of in-person visits, telephone consultations, and remote monitoring., Imported from [facility]: On 12/16/2022, the patient was seen by Dr. Jadon Booker for bilateral knee joint pain. Moving forward, on 02/09/2024, Dr. Jeffy Chang noted chronic anemia during an office visit. Subsequent visits on 03/05/2024 and 04/13/2024 continued to address anemia issues. On 06/04/2024, Dr. Robert Gonzalez documented chronic right knee pain, followed by a hospital encounter on 06/10/[address] Jose Alberto Bridges for the same issue. The patient underwent ancillary procedures for palpitations and syncope on 06/28/2024 and 07/23/2024. On 08/06/2024, Dr. Robert Gonzalez addressed chronic right knee pain and history of arthroplasty during a hospital encounter. On 09/21/2024, Dr. Gamal Donahue performed surgery for arthritis of the left acromioclavicular joint and rotator cuff tear, with anesthesia provided by Dr. Emerson Haines. The patient had an office visit on 10/11/2024 with Omar Valenzuela for aftercare following musculoskeletal surgery. An ancillary procedure on 11/01/2024 noted status post placement of an implantable loop recorder due to syncope and collapse. Visits without specific dates include external device data entries and various telephone consultations.. * Social History: T obacco Use: T obacco Control (Standard) T obacco use: N onsmoker M igrated Social History: M igrated Social History: Alcohol Intake: None 12/21/2020,Tobacco Years: Former smoker 03/14/2020,Smoking Status: 10 05/14/2023. * Medications: T aking rOPINIRole HCl 1 MG Tablet 1 tablet Oral twice a day , Taking DULoxetine HCl 60 MG Capsule Delayed Release Particles 1 capsule Oral twice a day , Taking Doxepin HCl 10 MG Capsule 1 capsule at bedtime Oral Once a day , Taking Vitamin D 25 MCG (1000 UT) Tablet 1 tablet Orally Once a day , Taking Vitamin B Complex - Tablet as directed Orally , Taking Multivitamin - Tablet 1 tablet Orally Once a day , Taking Gabapentin 600 MG Tablet Oral , Taking ZEPBOUND 2.5 MG/0.5 ML SUBCUTANEOUS PEN INJECTOR , Notes to Pharmacist: *Reorder from [facility] for eRx and Interaction Alerts*, Taking Depakote ER 500 MG Tablet Extended Release 24 Hour Oral , Taking Famotidine 40 MG Tablet Oral , Taking Methocarbamol 500 MG Tablet Oral , Taking BUDESONIDE- FORMOTEROL HFA 80 MCG-4.5 MCG/ACTUATION AEROSOL INHALER , Notes to Pharmacist: *Reorder from [facility] for eRx and Interaction Alerts*, Taking Triamcinolone Acetonide 0.1% Cream External , Taking OptiChamber Cher SPACER (EA) MISCELLANEOUS , Taking sulfaSALAzine 500 MG Tablet Delayed Release Oral , Taking rOPINIRole HCl 1 MG Tablet TAKE 1 TABLET BY MOUTH TWICE A DAY , Taking Divalproex Sodium ER 500 MG Tablet Extended Release 24 Hour TAKE 1 TABLET TWICE A DAY BY ORAL ROUTE FOR 90 DAYS. , Taking Doxepin HCl 10 MG Capsule TAKE 1 CAPSULE BY MOUTH EVERYDAY AT BEDTIME , Taking Acetaminophen-Codeine 300-60 MG Tablet TAKE 1 TABLET BY MOUTH TWICE A DAY NEEDED Oral , Taking ARIPiprazole 15 MG Tablet TAKE ONE-HALF TABLET BY MOUTH ONCE A DAY FOR 30 DAYS (DOSE DECREASE) , Taking Acetaminophen-Codeine 300-60 MG Tablet Oral , Medication List reviewed and reconciled with the patient Objective: * Vitals: Assessment: * Assessment: 1. G eneralized anxiety disorder - F41.1 (Primary) 2 . M ajor depressive disorder, recurrent, mild - F33.0 3 . O ther insomnia - G47.09 4 .?Restless legs syndrome - G25.81 Plan: * Treatment: 2. M ajor depressive disorder, recurrent, mild Continue DULoxetine HCl Capsule Delayed Release Particles, 60 MG, 1 capsule, Oral, twice a day, 90 days, 180 Capsule, Refills 1; S tart ARIPiprazole Tablet, 5 MG, 1 tablet Orally Once a day, 30 days, 30, Refills 1, Notes to Pharmacist: dose decrease. Notes: Cymbalta 60mg bid, abilify 10mg daily 3. O ther insomnia Continue Doxepin HCl Capsule, 10 MG, 1 capsule at bedtime, Oral, Once a day, 90 days, 90, Refills 1. Notes: Doxepin 10mg hs 4. R estless legs syndrome Continue rOPINIRole HCl Tablet, 1 MG, 1 tablet, Oral, twice a day, 90 days, 180 Tablet, Refills 1.? Notes: ropinirole 1mg hs * Follow Up: 4 Weeks (Reason: f/u anxiety, depression) * Billing Information: * Visit Code: 56729 OFFICE OUTPATIENT VISIT 25 MINUTES DETAILED HISTORY AND EXAM/MODERATE MEDICAL DECISION MAKING. * Procedure Codes: * Electronic signature of TIFFANI Garcia on 12/03/2024 at 08:00 AM CDT Sign off status: Pending * Provider: TIFFANI RAZO Date: 11/23/2024 Generated for Vicky interiano/Fajo/eTransmitting on: 12/03/2024 08:00 AM CDT History and Physical Notes * HPI (History of Present Illness) Category Sub-Category Detail Notes Category Not es History of Presenting Problem Sleep disturbance Pain disturbing sleep: some days wake up with pain Prescribed sleep medications: currently taking medication to help sleep; tried belsomra, dayvigo, lunesta, ramelteon, trazodone no longer uses CPAP since losing weight Lili/Hypomania excessive spending Depression screening PHQ-9 Little inte rest or pleasure in doing things: Not at all Feeling down, depressed, or hopeless: No t at all Trouble falling or staying asleep, or sl eeping too much: Nearly every day Feeling tired or having little energy: N early every day Poor appetite or overeating: Not at all Feeling bad about yourself o r that you are a failure, or have let yourself or your family down: Not at all Trouble concentrating on thi ngs, such as reading the newspaper or watching television: Nearly every day Moving or speaking so slowly that other people could have noticed; or the opposite, being so fidgety or restless that you have been moving around a lot more than usual: Nearly every day Thoughts that you would be b joselo off or of hurting yourself in some way: Not at all Total Score: 12 Interpretation: Moderate Depression Depression Screening ORA-7 (2018 Edition) Feelin g nervous, anxious, or on edge: Not at all Not being able to stop or control worryi ng: Not at all Worrying too much about different things : Not at all Trouble relaxing: Nearly every day Being so restless that it is hard to sit still: Nearly every day Becoming easily annoyed or irritable: No t at all Feeling afraid as if something awful jitendra ht happen: Not at all Total ORA-7 Score: 6 Interpretation of Total: (5 to 9) Mild [place]-Suicide Severity Rating Scale Suicide Risk (CSRS-screener) in the past one month Have you wished you were or wished you could go to sleep and not wake up?: No in the past one month Have y ou actually had any thoughts of killing yourself?: No Have you ever done anything, started to do anything, or prepared to do anything to end your life?: No Past Psychiatric Medications Lunesta, divalproex, zaleplon, ramelteon, armodafinil, Rozerem, trazodone,
--- OUTSIDE RECORDS SUMMARY | 2024-12-03 08:00 | XMS_ITS | Clinical Summary ---
Author Organization [facility] Address [address] [place] [address] Phone Care Team Providers Care Automobile Rental Representative Name Role Phone PoonamsusiMorena fernandez Primary Care Provider [phone]- [phone] Medications DULoxetine (CYMBALTA) [address] [...] of 3 - 19+ 3-dose series) 02/26/1996 Cologuard 2022 Colonoscopy 2022 Colorectal Cancer Screening 2022 Immunochemical Fecal Occult Blood 2022 Mammogram 02/28/2023 02/28/2022, 07/0 05/2020, 10/25/2019, Additional history exists SARS-COV-2 Immunization (2023- season) 2024 02/12/2022, 01/01/2021, 08/05/2020, Additional history exists Influenza Immunization (#1) 01/10/202512/10, 02/12/2022, 04/15/2021, Additional history exists Respiratory Syncytial Virus (RSV) Immunization (Adult) (1 - 1-dose 75+ series) 02/26/2052 DTaP/Tdap/Td Immunization Discontinued 04/15/2021 TdaP Immunization Completed 04/15/2021 Discussion re Starting/Frequency of Mammograms Completed 02/28/2022, 11/09/2020, 02/03/2020, Additional history exists Human Papillomavirus (HPV) Immunization Aged Out No longer eligible based on patient's age to complete this topic Meningococcal Immunization (ACWY) Aged Out No longer eligible based on patient's age to complete this topic Pneumococcal Immunization Combined Aged Out No longer eligible based on patient's age to complete this topic Rotavirus Immunization Aged Out No lo nger eligible based on patient's age to complete this topic Insurance [facility] MEDICARE C AETNA Care Teams Automobile Rental Representative Relationship Specialty Start Date End Date Morena Sprague DO [address] [place] [address] PCP - General Family Medicine 10/30/22
--- OUTSIDE RECORDS SUMMARY | 2024-12-03 08:00 | XMS_ITS | Clinical Summary ---
Author Organization [facility] Radha Mcbride Address [address] [place] [address] Care Team Providers Care Drop Tester Name Role Phone Morena Sprague Primary Care Provider [phone] Allergies Active Allergy Reactions Criticality Noted Date [...] Encounters Date Type Department Care Team Description 11/24/2024 External Device Data [facility] ABSTRACTION Provider, Abstract 11/23/2024 External Device Data [facility] ABSTRACTION Provider, Abstract 10/26/2024 External Device Data [facility] ABSTRACTION Provider, Abstract 10/12/2024 External Device Data [facility] ABSTRACTION Provider, Abstract 09/30/2024 External Device Data [facility] ABSTRACTION Provider, Abstract 09/29/2024 External Device Data [facility] ABSTRACTION Provider, Abstract 09/28/2024 External Device Data [facility] ABSTRACTION Provider, Abstract [...] Sign Reading Time Taken Comments Blood Pressure 107/75 08/20/2024 11:13 AM CDT Pulse 96 08/20/2024 11:13 AM CDT Temperature 36.2 C (97.2 F) 08/20/2024 11:13 AM CDT Respiratory Rate 16 08/20/2024 11:13 AM CDT Oxygen Saturation 94% 08/20/2024 11:13 AM CDT Inhaled Oxygen Concentration - - Weight 86.4 kg (190 lb 6.4 oz) 08/20/2024 11:13 AM CDT Height 177.8 cm (5' 10) 10/28/2023 10:48 AM CDT Body Mass Index 27.32 10/28/2023 10:48 AM CDT Plan of Treatment Upcoming Encounters Date Type Department Care Team (Late st Contact Info) Description 2025 8:30 AM CDT Office Visit [facility] Oncology and Hematology - Ger [address] [facility] [address] [place] [address] Jeffy Chang MD [address] [facility] [address] [place] [address] Health Maintenance Due Date Last [...] 11/09/2020, Additional history exists INFLUENZA VACCINE (#1) 2024 0, 02/09/2019, 02/19/2018, Additional history exists COLORECTAL SCREENING 07/20/2030 07/20/2020, 07/21/19 21 Colorectal Cancer Screening 07/20/2030 Insurance [employer] BLUE ACCESS/TRUE BLUE PPO AETNA O MCR Care Teams Drop Tester Relationship Specialty Start Date End Date Morena Sprague DO [facility] [facility] [address] [place] [id number] PCP - General Family Practice 10/22/23
--- OUTSIDE RECORDS SUMMARY | 2024-12-03 08:00 | XMS_ITS | Patient Health Record ---
Author Organization [facility] [employer] Address [address] [place] [address] Care Team Providers Care City Weighmaster Name Role Phone Morena Sprague DO Primary Care Provider UnavailAaron Luciano Unavailable [phone] Allergies Allergen (clinical drug ingredient) Drug/Non Drug [...] 30 DAYS (DOSE DECREASE); Duration: 90 Active Methocarbamol 500 MG Oral 09/24/2023 Active BUDESONIDE-FORMOTERO L HFA 80 MCG-4.5 MCG/ACTUATION AEROSOL INHALER *Reorder from Kirax for eRx and Interaction Alerts* 09/24/2023 Active Triamcinolone Acetonide 0.1% External 09/24/2023 Active rOPINIRole HCl 1 MG 1 tablet Oral twice a day; Duration: 90 days Active OptiChamber Cher MISCELLANEOUS 09/24/2023 Active sulfaSALAzine 500 MG Oral 09/24/2023 Active rOPINIRole HCl 1 MG TAKE 1 TABLET BY MOUTH TWICE A DAY; Duration: 90 Active Divalproex Sodium ER 500 MG TAKE 1 TABLET TWICE A DAY BY ORAL ROUTE FOR 90 DAYS.; Duration: 90 Active Doxepin HCl 10 MG TAKE 1 CAPSULE BY MOUTH EVERYDAY AT BEDTIME; Duration: 90 Active Vitamin D 25 MCG (1000 UT) 1 tablet Orally Once a day Active DULoxetine HCl 60 MG 1 capsule Oral twic e a day; Duration: 90 days Active ARIPiprazole 5 MG 1 tablet Orally Once a day; Duration: 30 days dose decrease Active Vitamin B Complex - as directed Orally Active Doxepin HCl 10 MG 1 capsule at bedtime Oral Once a day; Duration: 90 days Active Multivitamin - 1 tablet Orally Once a day Active Gabapentin 600 MG Oral 09/24/2023 A ctive ZEPBOUND 2.5 MG/0.5 ML SUBCUTANEOUS PEN INJECTOR *Reorder from Kirax for eRx and Interaction Alerts* 09/24/2023 Active Depakote ER 500 MG Oral 09/24/2023 Active Famotidine 40 MG Oral 09/24/2023 Ac tive Acetaminophen-Codein e 300-60 MG Oral; Duration: 21 Days Active Immunizations Vaccine Route Administration Date Status Comme [...] 02/09/2017 Administered MMR Unknown 03/06/2016 Administered Novel [id number], preservative free Unknown 02/10/2020 Administered Pfizer Biontech Covid-19 Vac cine 2nd dose Unknown 07/11/2020 Administered Pfizer Biontech Covid-19 Vac cine 2nd dose Unknown 08/05/2020 Administered Pfizer Biontech Covid-19 Vac cine 2nd dose Unknown 01/01/2021 Administered Pfizer Biontech Covid-19 Vac cine 2nd dose Unknown 02/12/2022 Administered Social History Tobacco Use: Social History Observation Description Date Details (start date - stop date) Never Smoker NA - NA Sex Assigned At : Social History Observation Description Sex Assigned At Female Tobacco Control (Standard) Question Answer Notes Tobacco use: Nonsmoker Problems Problem Type SNOMED Code ICD Code Onset Dates Problem Status W/U Status Risk Notes Problem Mild recurrent major depression (57389958) Major depressive disorder, recurrent, mild (F33.0) Active confirmed Problem Generalized anxiety disorder (36905366) Generalized anxiety disorder (F41.1) Active confirmed Problem Restless legs syndrome (51217999) Restless legs syndrome (G25.81) Active confirmed Problem Insomnia (695066073) Other insomnia (G47.09) Active confirmed Vital Signs Height-cm 175.26 cm 06/16/2024 Height 69.00 in 06/16/2024 Encounters Encounter Location Date Provider Diagnosis [facility] [employer] [address] [address] 11/23/2024 Aaron Pop Generalized anxiety disorder F41.1 ; Major depressive disorder, recurrent, mild F33.0 ; Other insomnia G47.09 and Restless legs syndrome G25.81 [facility] [employer] [address] 12/24/2023 Aaron Pop Generalized anxiety disorder F41.1 ; Major depressive disorder, recurrent, mild F33.0 ; Other insomnia G47.09 and Restless legs syndrome G25.81 [facility] [employer] [place] [address] [facility] [address] [address] 06/16/2024 Aaron Pop Generalized anxiety disorder F41.1 ; Major depressive disorder, recurrent, mild F33.0 ; Other insomnia G47.09 ; Restless legs syndrome G25.81 and Major depressive disorder, recurrent severe without psychotic features 296.33 [facility] [place] [address] [facility] [address] [address] 10/19/2024 Aaron Pop Generalized anxiety disorder F41.1 ; Major depressive disorder, recurrent, mild F33.0 ; Other insomnia G47.09 ; Restless legs syndrome G25.81 and Major depressive disorder, recurrent severe without psychotic features 296.33 [facility] [place] [address] [facility] [address] [address] 03/19/2024 Aaron Pop Major depressive disorder, recurrent, mild F33.0 [facility] [place] [address] [facility] [address] [address] 03/19/2024 Aaron Pop Assessments Encounter Date Diagnosis (ICD Code) Assessment Notes Treatment Notes Treatment Clinical Notes Section Notes 12/24/2023 Major depressive disorder, recurrent, mild (ICD-10 [...] 4. Pain Management - Patient referred to [facility] for pain management. - Currently [...] 4. Pain Management - Patient referred to [facility] for pain management. - Currently [...] Generalized anxiety disorder (ICD-10 - F41.1) stable 10/19/2024 Generalized anxiety disorder (ICD-10 - F41.1) stable 11/23/2024 Generalized anxiety disorder (ICD-10 - F41.1) stable 11/23/2024 Major depressive disorder, recurrent, mild (ICD-10 - F33.0) Cymbalta 60mg bid, abilify 10mg daily 06/16/2024 Major depressive disorder, recurrent, mild (ICD-10 [...] 4. Pain Management - Patient referred to [facility] for pain management. - Currently [...] Schedule a follow-up appointment in three months. 10/19/2024 Major depressive disorder, recurrent, mild (ICD-10 - F33.0) Cymbalta 60mg bid, abilify 10mg daily 06/16/2024 Other insomnia (ICD-10 - G47.09) Doxepin 10mg hs 11/23/2024 Other insomnia (ICD-10 - G47.09) Doxepin 10mg hs 10/19/2024 Other insomnia (ICD-10 - G47.09) Doxepin 10mg [...] 4. Pain Management - Patient referred to [facility] for pain management. - Currently [...] Schedule a follow-up appointment in three months. 10/19/2024 Restless legs syndrome (ICD-10 - G25.81) ropinirole 1mg hs 11/23/2024 Restless legs syndrome (ICD-10 - G25.81) ropinirole 1mg hs 06/16/2024 Restless legs syndrome (ICD-10 - G25.81) ropinirole 1mg hs 06/16/2024 Major depressive disorder, recurrent severe without psychotic features (ICD9-CM - 296.33) 10/19/2024 Major depressive disorder, recurrent severe without psychotic [...] for 90 days. - Send prescriptions to [facility] pharmacy. Follow-up: - Schedule a follow-up appointment in 4 months. - Patient will schedule the appointment through the [employer] maura. - Encourage the patient to reach out via the maura if any concerns arise before the next appointment. 10/19/2024 Lucian Ott presents with excessive spending, restlessness, and persistent pain affecting sleep, despite recent significant weight loss and multiple medications for mood and pain management. Bipolar Disorder with Impulsive Spending Assessment: Patient reports feeling good overall with no significant depression or anxiety symptoms. However, she is experiencing impulsive spending behaviors, spending approximately $500 at a time and feeling compelled to purchase everything of a particular item. This behavior may be associated with the current Abilify regimen, as the medication has been linked to excessive spending in some patients. Previously, attempts to reduce Abilify dosage resulted in a return of depressive symptoms, indicating a delicate balance in medication management. Plan: - Decrease Abilify to 7.5 mg - Follow up in one month to assess impact on spending behavior and monitor for return of depressive symptoms - If tolerated, consider further dose reduction at next follow-up Sleep Disturbance and Fatigue Assessment: Patient reports significant sleep disturbance, primarily due to increased pain at night. This has led to daytime fatigue, with the patient falling asleep while sitting up and refraining from driving due to safety concerns. Patient has discontinued CPAP use following significant weight loss (140 pounds) and cessation of snoring, but has not been re-evaluated by a sleep specialist. The combination of pain, possible residual sleep apnea, and medication side effects may be contributing to the sleep disturbance and fatigue. Plan: - Recommend trial of CPAP use to assess impact on daytime fatigue - Advise scheduling appointment with sleep specialist for re-evaluation - Continue current sleep medications: - doxepin - ropinirole - Monitor and reassess sleep quality and daytime fatigue at follow-up Chronic Pain Management Assessment: Patient reports ongoing pain issues affecting multiple areas including knee, back, and hips. A recent knee replacement has not alleviated pain, and extensive diagnostic imaging has not identified a clear cause. Patient is currently under the care of a auto painter and is taking Tylenol 4 for pain control. Additionally, steps are being taken to obtain a medical marijuana card for potential pain management. Plan: - Continue current pain management regimen: - Tylenol 4 - gabapentin - duloxetine - Follow up with auto painter as scheduled - Proceed with obtaining medical marijuana card as recommended by pain management Medication Management Assessment: Patient is on a complex medication regimen for various conditions including mood disorders, pain management, and autoimmune issues. Recent changes include discontinuation of iron supplementation due to stomach bleeding and a switch from thalidomide to leflunomide and sulfasalazine for an unspecified condition. Plan: - Continue current medications: - duloxetine - doxepin - ropinirole - Vitamin D - Vitamin B complex - Multivitamin - gabapentin - Zepbound (tirzepatide) - Depakote - leflunomide - sulfasalazine - Monitor for any side effects or interactions at follow-up the note is transcribed using speech recognition software. It is a reflection of a visit with the patient. It might have some inaccuracy, including medication names and transcribing errors, though efforts have been made to correct them. Plan Of Treatment Next Appt Details Provider Name:Aaron Hemal wood, 12/23/2024 09:30:00 AM, [facility] [address], [facility] [address], [place], [address], Insurance Providers Payer Name Payer Address Payer Phone Subscriber Number Group Number Insured Name Patient Relationship to Insured Coverage Start Date Coverage End Date [employer] [employer] [address] [place] [address] [id number] ANNABELLA MUKHERJEE Spouse - patient is the spouse of the insured [employer] [address] [place] [address] [id number] ANNABELLA MUKHERJEE Self - patient is the insured Medical (General) History Medical History History ICD Code Imported from Highlights: Th e patient has been under consistent monitoring and treatment from September to November 2023 for palpitations, syncope and collapse, and status post placement of an implantable loop recorder. These conditions were addressed during multiple ancillary procedures and orders by Dr. Shekhar Garcia at [facility] and through telephone consultations. The patient also had an office visit and telephone check-up with SIOMARA Nelson at [facility], for iron deficiency anemia, thrombocytosis, and B12 deficiency. External device data was also collected multiple times by Provider Abstract at [facility]. The patient's conditions have been managed through a combination of in-person visits, telephone consultations, and remote monitoring. Imported from Highlights: On 12/16/2022, the patient [...] external device data entries and various telephone consultations. Surgical History Surgery Date(Month/Year) Removal of gallbladder (63188) 5 Endometrial ablation ([id number]) 009 Endometrial ablation (86790) 05/12/2014 Hysterectomy (28738) 10/14/2018 Total knee replacement ([id number]) left 03/16/2020 Breast surgery (69278) 04/20/2019
--- OUTSIDE RECORDS SUMMARY | 2024-12-03 08:00 | XMS_ITS | Clinical Summary ---
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
--- OUTSIDE RECORDS SUMMARY | 2024-12-03 08:01 | XMS_ITS | Clinical Summary ---
Author Organization [facility] [employer] Address [address] [place] [address] Care Team Providers Care Lead Sustainability Specialist Name Role Phone Geovanny Mayberry MD Primary Care Provider [phone] Geovanny Mayberry MD Unavailable [phone] Source Comments [facility],non-owned Affiliates and Associated Physician Practices is amultiple site organization consisting of ambulatory clinics and hospital sitesin [place], [place], [place]. This disclosure is being madepursuant to the Care Everywhere program and may not contain all information available regarding this patient. Last updated 18.[facility] Allergies Active Allergy Reactions Criticality Noted Date Comments Amoxicillin Rash Medium 03/18/2017 Clindamycin Other,GI Discomfort 03/18/2017 Latex Rash Medium 03/18/2017 Nsaids Other 03/18/2017 Bypass gastric Prednisone Other 03/18/2017 Gastric bypass, Medications * Be aware that medications may not be up to date on this document. Alwaysverify current medications with the patient. sertraline (ZOLOFT) 100 MG tablet Take 100 mg by mouth once daily Active QUEtiapine Fumarate (SEROQUEL PO) Active multivitamin daily (THERAGRAN) tablet Take 1 tablet by mouth daily with food Active vitamin D, ergocalciferol, (DRISDOL) 33675 UNITS capsule Take 50,000 Units by mouth every 30 days Active fluticasone propionate (FLONASE) 50 MCG/ACT nasal sprayIndication s:Acute maxillary sinusitis, recurrence not specified [place] 2 sprays into each nostril once daily 1 bottles 03/18/2017 Active Immunizations Immunization Administration Dates Next Due INFLUENZA VACCINE, QUADR. (F LUZONE; FLULAVAL; FLUARIX; AFLURIA QUADRIVALENT; 6MO+), 0.5 ML (IIV4) 02/10/2020 MMR 03/06/2016 Family History Medical History Relation Name Comments Hyperlipidemia Father Hypertension Father Cancer - Breast Mother Cancer - Uterine Mother Hyperlipidemia Mother Hypertension Mother Relation Name Status Comments Father Mother Social History Tobacco Use Types Packs/Day Years Used Date Smoking Tobacco: Former Cigarettes 1 2001 Smokeless Tobacco: Never Comments No Sex and Gender Information Value Date Recorded Sex Assigned at Not on file Legal Sex Female 7:22 AM CDT Gender Identity Not on file Sexual Orientation Not on file Last Filed Vital Signs Vital Sign Reading Time Taken Comments Blood Pressure 118/80 03/18/2017 4:08 PM MOLD YARD WORKER Pulse 86 03/18/2017 4:08 PM MOLD YARD WORKER Temperature 37.1 C (98.7 F) 03/18/2017 4:08 PM MOLD YARD WORKER Respiratory Rate 16 03/18/2017 4:08 PM MOLD YARD WORKER Oxygen Saturation 98% 03/18/2017 4:08 PM MOLD YARD WORKER Inhaled Oxygen Concentration - - Weight 120.2 kg (265 lb) 03/18/2017 4:08 PM MOLD YARD WORKER Height 175.3 cm (5' 9) 03/18/2017 4:08 PM MOLD YARD WORKER Body Mass Index 39.13 03/18/2017 4:08 PM MOLD YARD WORKER Plan of Treatment Health Maintenance Due Date Last Done Comments COLOGUARD (AGES 45-75) - COLON CA SCREENING 1977 COLON MONITORING 1977 COLONOSCOPY - COLON CA SCREENING 1977 CT COLONOGRAPHY - COLON CA SCREENING 1977 Colorectal Cancer Screening 1977 FIT - COLON CA SCREENING 1977 FLEX SIG - COLON CA SCREENING 1977 LIPID TESTING 1977 MAMMOGRAM 1977 HIV SCREENING 02/26/1992 HEPATITIS C SCREENING 02/21/1995 DTAP/TDAP/TD VACCINES (1 - Tdap) 02/26/1996 HEPATITIS B VACCINE (1 of 3 - 19+ 3-dose series) 02/26/1996 PAP SMEAR 1998 COVID-19 VACCINE ( season) 2024 DEPRESSION SCREENING 05/12/2024 MEDICARE AWV CALENDAR YEAR 2024 INFLUENZA VACCINE (#1) 2025 , 02/10/2020, 02/19/2018, Additional history exists SCREENING FOR DIABETES 11/30/2025 11/30/2022, 2022 ZOSTER VACCINE (1 of 2) 2027 HIB [...] patient's age to complete this topic Insurance [facility]IC[facility] ADV Care Teams Lead Sustainability Specialist Relationship Specialty Start Date End Date Geovanny Mayberry MD [address] [place] [address] PCP - General 09/30/18 Geovanny Mayberry MD [address] [place] [address] Family Medicine 09/30/18
[2024-12-03 13:10] LABS: Hematocrit 40.4 % (37.0-47.0); Hemoglobin 12.0 g/dL (12.0-15.0); Immature Granulocyte Percent A 0.3 % (0-0.5); Lymphocytes Absolute Auto 1.90 K/mm3 (0.9-3.2); Mean Corpuscular HGB Conc 29.7 g/dl (32-36); Mean Corpuscular Hemoglobin 24.5 pg (26-34); Mean Corpuscular Volume 82.4 fl (80-100); Nucleated Red Blood Cells Absolute Auto 0.000 K/mm3 (0.0-0.012); Nucleated Red Blood Cells Perc 0.0 % (0.0-0.2); Platelet Count Result 417 k/mm3 (150-375); Red Blood Count 4.90 M/mm3 (4.2-5.4); White Blood Count 6.1 K/mm3 (4.5-10.0)
[2024-12-03 13:37] LABS: Alanine Aminotransferase 16 U/L (6-35); Albumin Level 4.0 g/dL (3.5-5.1); Alkaline Phosphatase 83 U/L (38-126); Anion Gap 8 mmol/L (4-12); Aspartate Amino Transferase 37 U/L (14-36); Bilirubin,Total 0.5 mg/dL (0.2-1.3); Blood Urea Nitrogen 15 mg/dL (7-17); CRP 1.6 mg/dL (<1.0); Calcium 9.2 mg/dL (8.4-10.2); Carbon Dioxide 26 mmol/L (22-30); Chloride 103 mmol/L (98-107); Estimated Glomerular Filt Rate > 60; Glucose 75 mg/dL (65-110); Potassium 4.0 mmol/L (3.4-5.0); Sodium 137 mmol/L (137-145); Total Protein 8.2 g/dL (6.3-8.2)
[2024-12-03 14:06] LABS: Anisocytosis 1+; Hypochromasia 1+
[2024-12-03 14:07] LABS: Burr Cells 1+; Schistocytes None Seen
== END 2024-12-03 07:57 | disposition home or self-care (01) ==
LOC: ANHGOSHLAB 07:57
PROVIDERS: PCP Family Medicine; Visit Provider Nurse Practitioner
DX: L40.59 Other psoriatic arthropathy (principal); Z79.1 Long term (current) use of non-steroidal anti-inflammatories (NSAID); Z79.899 Other long term (current) drug therapy
CPT/HCPCS: 36415; 80053; 85025; 86140

== ENCOUNTER 2024-12-24 13:21 | Emergency (ER) | payer BC, MEDICARE, SELFPAY ==
--- OUTSIDE RECORDS SUMMARY | 2024-12-24 13:25 | XMS_ITS | Clinical Summary ---
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
--- OUTSIDE RECORDS SUMMARY | 2024-12-24 13:25 | XMS_ITS | Encounter Summary ---
Author Organization 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
--- OUTSIDE RECORDS SUMMARY | 2024-12-24 13:25 | XMS_ITS | Clinical Summary ---
Author Organization [facility] Address [address] [place] [address] Phone Care Team Providers Care Landfill Attendant Name Role Phone PoonamsusiMorena fernandez Primary Care Provider [phone] Medications DULoxetine (CYMBALTA) [address] [...] patient's age to complete this topic Insurance [facility] MEDICARE C AETNA Care Teams Landfill Attendant Relationship Specialty Start Date End Date Morena Sprague DO [address] [place] [address] PCP - General Family Medicine 10/30/22
--- OUTSIDE RECORDS SUMMARY | 2024-12-24 13:25 | XMS_ITS | Clinical Summary ---
Author Organization [facility] Radha Mcbride Address [address] [place] [address] Care Team Providers Care Home Office Representative Name Role Phone Morena Sprague Primary Care Provider [phone] Allergies Active Allergy Reactions Criticality Noted Date [...] Encounters Date Type Department Care Team Description 12/14/2024 External Device Data ST[facility] ABSTRACTION Provider, Abstract 11/24/2024 External Device Data [facility] ABSTRACTION Provider, [...] Description 2025 8:30 AM CDT Office Visit [facility] [place] [address] [facility] [address] [place] [address] Jeffy Chang MD [address] [facility] [address] [place] [address] Health Maintenance Due Date Last [...] 07/21/19 21 Colorectal Cancer Screening 07/20/2030 Insurance BS BLUE ACCESS/TRUE BLUE PPO AETNA O MCR Care Teams Home Office Representative Relationship Specialty Start Date End Date Morena Sprague DO [address] [facility] [address] [place] [id number] PCP - General Family Practice 10/22/23
--- OUTSIDE RECORDS SUMMARY | 2024-12-24 13:25 | XMS_ITS | Patient Health Record ---
Author Organization [facility] [employer] Address [address] [place] [address] Care Team Providers Care Paving Rammer Name Role Phone Morena Sprague DO Primary Care Provider UnavailAaron Luciano Unavailable [phone] Allergies Allergen (clinical drug ingredient) Drug/Non Drug [...] 80 MCG-4.5 MCG/ACTUATION AEROSOL INHALER *Reorder from [email or web address] for eRx and Interaction Alerts* 09/24/2023 Active [...] MG/0.5 ML SUBCUTANEOUS PEN INJECTOR *Reorder from [email or web address] for eRx and Interaction Alerts* 09/24/2023 Active [...] 02/09/2017 Administered MMR Unknown 03/06/2016 Administered Novel [id number], preservative free Unknown 02/10/2020 Administered Pfizer Biontech [...] Risk Notes Problem Mild recurrent major depression (46127274) Major depressive disorder, recurrent, mild (F33.0) Active confirmed Problem Generalized anxiety disorder (63198642) Generalized anxiety disorder (F41.1) Active confirmed Problem Restless legs syndrome (G25.81) Active confirmed Problem Insomnia (419437175) Other insomnia (G47.09) Active confirmed Vital Signs Height-cm 175.26 cm 06/16/2024 Height 69.00 in 06/16/2024 Encounters Encounter Location Date Provider Diagnosis [facility] [employer] [facility] [address] [facility] [address] [place] [address] 06/16/2024 Aaron Pop Generalized anxiety disorder F41.1 ; Major depressive disorder, recurrent, mild F33.0 ; Other insomnia G47.09 ; Restless legs syndrome G25.81 and Major depressive disorder, recurrent severe without psychotic features 296.33 [facility] [place] [id number] [address] 10/19/2024 Aaron Pop Generalized anxiety disorder F41.1 ; Major depressive disorder, recurrent, mild F33.0 ; Other insomnia G47.09 ; Restless legs syndrome G25.81 and Major depressive disorder, recurrent severe without psychotic features 296.33 [facility] [employer] [facility] [address] [address] 11/23/2024 Aaron Pop Generalized anxiety disorder F41.1 ; Major depressive disorder, recurrent, mild F33.0 ; Other insomnia G47.09 and Restless legs syndrome G25.81 [facility] [employer] [facility] [address] [address] 03/19/2024 Aaron Pop Major depressive disorder, recurrent, mild F33.0 [facility] [employer] [facility] [address] [address] 03/19/2024 Aaron Pop Assessments Encounter Date Diagnosis (ICD Code) Assessment Notes Treatment Notes Treatment Clinical Notes Section Notes 06/16/2024 Generalized anxiety disorder (ICD-10 - F41.1) stable 10/19/2024 Generalized anxiety disorder (ICD-10 - F41.1) stable 11/23/2024 Generalized anxiety disorder (ICD-10 - F41.1) stable 03/19/2024 Major depressive disorder, recurrent, mild (ICD-10 - F33.0) 10/19/2024 Major depressive disorder, recurrent, mild (ICD-10 - F33.0) Cymbalta 60mg bid, abilify 10mg daily 11/23/2024 Major depressive disorder, recurrent, mild (ICD-10 - F33.0) Cymbalta 60mg bid, abilify 10mg daily 06/16/2024 Major depressive disorder, recurrent, mild (ICD-10 - F33.0) Cymbalta 60mg bid, abilify 10mg daily 11/23/2024 Other insomnia (ICD-10 - G47.09) Doxepin 10mg hs 10/19/2024 Other insomnia (ICD-10 - G47.09) Doxepin 10mg hs 06/16/2024 Other insomnia (ICD-10 - G47.09) Doxepin 10mg hs 06/16/2024 Restless legs syndrome (ICD-10 - G25.81) ropinirole 1mg hs 10/19/2024 Restless legs syndrome (ICD-10 - G25.81) ropinirole 1mg hs 11/23/2024 Restless legs syndrome (ICD-10 - G25.81) ropinirole 1mg hs 10/19/2024 Major depressive disorder, recurrent severe without psychotic features (ICD9-CM - 296.33) 06/16/2024 Major depressive disorder, recurrent severe without [...] 90 days. - Send prescriptions to [facility] pharmacy. Follow-up: - Schedule a follow-up appointment in 4 months. - Patient will schedule the appointment through the [facility]aura. - Encourage the patient to reach [...] is currently under the care of a paint sprayer sandblaster and is taking Tylenol 4 for pain control. Additionally, steps are being taken to obtain a medical marijuana card for potential pain management. Plan: - Continue current pain management regimen: - Tylenol 4 - gabapentin - duloxetine - Follow up with paint sprayer sandblaster as scheduled - Proceed with obtaining medical [...] efforts have been made to correct them. 11/23/2024 Lucian Garcia, a patient with a history of bipolar disorder, sleep apnea, and restless leg syndrome, presents for follow-up with improved mood and reduced shopping urges, but reports significant pain-related sleep disturbances. Bipolar Disorder Assessment: Patient reports improved mood stability and reduced impulsive shopping behaviors after decreasing aripiprazole to 7.5 mg daily last month. She denies current depression symptoms and anxiety. The patient has demonstrated good response to the medication adjustment, with no apparent adverse effects. Plan: - Decrease aripiprazole to 5 mg PO daily - Continue duloxetine 60 mg PO twice daily - Follow up in 1 month Insomnia Assessment: Patient reports significant sleep disturbances, primarily due to pain. She is only getting 2-3 hours of sleep per night and experiences daytime somnolence, including falling asleep mid-conversation . The patient is currently seeing a pain specialist and receiving interventions for back and tailbone pain. She reports that doxepin helps with sleep initiation, but pain causes frequent awakenings. The patient's history of sleep apnea is noted, but she states she no longer requires CPAP due to weight loss. Plan: - Continue doxepin 10 mg PO daily at bedtime for sleep - Reassess sleep quality after pain management interventions - Consider evaluation for chronic fatigue or sleep disorder if symptoms persist after pain resolution Restless Leg Syndrome Assessment: Patient continues to be managed with ropinirole for restless leg syndrome. No specific complaints or concerns were mentioned regarding this condition during the current visit. Plan: - Continue ropinirole 1 mg PO twice daily the note is transcribed using speech recognition software. It is a reflection of a visit with the patient. It might have some inaccuracy, including medication names and transcribing errors, though efforts have been made to correct them. Plan Of Treatment Next Appt Details Provider Name:Aaron wood, 12/29/2024 09:15:00 AM, [address], [facility] [address], [place], [address], Insurance Providers Payer Name Payer Address Payer Phone Subscriber Number Group Number Insured Name Patient Relationship to Insured Coverage Start Date Coverage End Date [employer] [employer] [address] [place] [address] [id number] ANNABELLA MUKHERJEE Spouse - patient is the spouse of the insured A[employer] [address] [place] [address] [id number] ANNABELLA MUKHERJEE Self - patient is [...] and orders by Dr. Shekhar Garcia at [facility] and through telephone consultations. The patient also had an office visit and telephone check-up with SIOMARA Nelson at [facility], for iron deficiency anemia, thrombocytosis, and B12 deficiency. External device data was also collected multiple times by Provider Abstract at [facility]. The patient's conditions have been [...] Surgical History Surgery Date(Month/Year) Removal of gallbladder (21894) 5 Endometrial ablation (668368111) 009 Endometrial ablation (52781) 05/12/2014 Hysterectomy (67421) 10/14/2018 Total knee replacement (923923468) left 03/16/2020 Breast surgery (15817) 04/20/2019
--- OUTSIDE RECORDS SUMMARY | 2024-12-24 13:25 | XMS_ITS | Encounter Summary ---
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 Gender Identity Female 08/21/2020 9:29 PM CDT Sexual Orientation Straight 08/21/2020 9: 29 PM CDT 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 Not on file Not on rudy e documented as of this encounter Plan of Treatment Not on file documented as of this encounter Procedures Procedure Name Priority Date/Time Associated Diagnosis Comments SCAN - RADIOLOGY/IMAGING 07/12/2024 documented in this encounter Results * SCAN - RADIOLOGY/IMAGING (07/12/2024) Anatomical Region Laterality Modality Other us Provider Scanning Edited Result - Final documented in this encounter Visit Diagnoses Not on filedocumented in this encounter Care Teams Staff Submarine Warfare Officer Relationship Specialty Start Date End Date Morena Sprague DO PCP - General Family Medicine 03/13/21 Omar Valenzuela PA [address] [facility] [address] [place] [address] Orthopedic Surgery 09/21/24 documented as of this encounter
--- OUTSIDE RECORDS SUMMARY | 2024-12-24 13:26 | XMS_ITS | Clinical Summary ---
Author Organization [facility] [employer] Address [address] [facility] [place] [address] Care Team Providers Care Song Writer Name Role Phone Geovanny Mayberry MD Primary Care Provider [phone] Geovanny Mayberry MD Unavailable [phone] Source Comments [facility],non-owned Affiliates and Associated Physician Practices is amultiple site organization consisting of ambulatory clinics and hospital sitesin [place], [place], [place] and [place]. This disclosure is being madepursuant to the Care Everywhere program and may not contain all information available regarding this patient. Last updated 18.[facility] Allergies Active Allergy Reactions Criticality Noted Date [...] with food Active vitamin D, ergocalciferol, (DRISDOL) 31104 UNITS capsule Take 50,000 Units by mouth every 30 days Active fluticasone propionate (FLONASE) 50 MCG/ACT nasal sprayIndication s:Acute maxillary sinusitis, recurrence not specified Sebastian 2 sprays into each nostril once daily [...] Comments Blood Pressure 118/80 03/18/2017 4:08 PM TILE MOLDER Pulse 86 03/18/2017 4:08 PM TILE MOLDER Temperature 37.1 C (98.7 F) 03/18/2017 4:08 PM TILE MOLDER Respiratory Rate 16 03/18/2017 4:08 PM TILE MOLDER Oxygen Saturation 98% 03/18/2017 4:08 PM TILE MOLDER Inhaled Oxygen Concentration - - Weight 120.2 kg (265 lb) 03/18/2017 4:08 PM TILE MOLDER Height 175.3 cm (5' 9) 03/18/2017 4:08 PM TILE MOLDER Body Mass Index 39.13 03/18/2017 4:08 PM TILE MOLDER Plan of Treatment Health Maintenance Due Date [...] to complete this topic Insurance [facility]THEM [facility] AETNA MEDICARE ADV Care Teams Song Writer Relationship Specialty Start Date End Date Geovanny Mayberry MD [address] [place] [address] PCP - General 09/30/18 Geovanny Mayberry MD [address] [place] [address] Family Medicine 09/30/18
--- OUTSIDE RECORDS SUMMARY | 2024-12-24 13:26 | XMS_ITS | Encounter Summary ---
Author Organization [facility] Address [address] [place] [address] Phone Care Team Providers Care Field Operations Technician Name Role Phone Geovanny Mayberry Primary Care Provider [phone] Zina Davis MD Primary Care Provider Emelina Singh DPT Unavailable [phone] Morena Sprague DO Primary Care Provider [phone] Omar Valenzuela Unavailable [phone] Encounter Details Date Type Department Care Team (Latest Contact Info) Description 10/05/2014 Orders Only [facility] Scanning, Provider Social History Tobacco Use Types Packs/Day Years Used Date Smoking Tobacco: Never Assessed Comments Unknown Sex and Gender Information Value Date Recorded Sex Assigned at Not on file Legal Sex Female 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 Gender Identity Female 08/21/2020 9:29 PM CDT [...] on filedocumented in this encounter Care Teams Field Operations Technician Relationship Specialty Start Date End Date Geovanny MayberryRadu [address] [place] [address] PCP - General 08/04/17 03/04/19 Zina Davis MD [address] [place] [address] PCP - General Family Practice 03/05/19 03/12/21 Morena Sprague DO [address] [place] [address] PCP - General Family Medicine 03/13/21 Emelina Singh DPT [address] [place] [address] Physical Therapist Physical Therapy 06/23/19 03/16/20 Omar Valenzuela PA [address] [place] [address] [place] [address] Physician Nurse Healthcare Manager Orthopedic Surgery 09/21/24 documented as of this encounter
--- OUTSIDE RECORDS SUMMARY | 2024-12-24 13:26 | XMS_ITS | Clinical Summary ---
Author Organization [facility] Address [address] [place] [address] Care Team Providers Care Roll Contour Grinder Name Role Phone Morena Sprague DO Primary Care Provider [phone]- [phone] Omar Valenzuela PA Unavailable [phone] Allergies Active Allergy Reactions Criticality Noted Date [...] implantable loop record er 02/18/2022 Overview (02/18/2022): Wibki LINQ11 Loop Recorder. Dx; Syncope, Palpitations. DOI [...] w/r/t gut microbiome. Referred to ADA and [employer] websites for additional information on topics [...] not improve, I recommend her seeing a swahili teacher or CRS. Anxiety and depression 08/04/2017 Panic [...] normal. Assessment & Plan (06/19/2020 3:56 PM CRIMINALIST): She presents with extensive prior workup for [...] reflex an refer to rheumatology here at [facility] for second opinion on her joint issues. We will see her back in clinic after her endoscopies for further evaluation and to make decisions about potential treatments. Encounters Date Type Department Care Team Description 12/13/2024 7:30 AM CDT Ancillary Procedure [facility] Cardiology [address] [place] [address] [place] [phone] Syncope and collapse; Status post placement of implantable loop recorder 11/01/2024 7:45 AM CDT Ancillary Procedure [facility] Cardiology [address] [place] [phone] Palpitations (Primary Dx); Syncope and collapse; Status post placement of implantable loop recorder 10/11/2024 3:30 PM CDT Office Visit [facility] Orthopedic and Sports Medicine [address] [place] [phone] Omar Valenzuela PA Aftercare following surgery of the musculoskeletal system (Primary Dx) 09/29/2024 Telephone [facility] Orthopedics and Sports Medicine [address], [place] [address] Niko Boone PA 09/28/2024 Orders Only [facility] Orthopedics and Sports Medicine [address] [place] [address] Niko Boone PA from Last 3 Months Immunizations Immunization Administration [...] - 05/11/2015 BLADDER SURGERY 05/12/2018 - 05/11/2019 [place] ARTHRP KNE CONDYLE&PLATU MEDIAL&LAT COMPARTMENTS 03/15/2020 Left [place] - Olga KNEE ARTHROSCOPY ABDOMINAL SURGERY 1994 SKIN BIOPSY Medical History Medical History Date Comments Sleep apnea Proctitis Osteoarthritis Fibromyalgia Interstitial cystitis Rectocele Cystocele with rectocele Fibromyalgia, primary Pelvic floor dysfunction Joint pain Incontinence GERD (gastroesophageal reflux disease) Depression 1994 Anxiety 2009 Autoimmune disease 2020 Motion sickness Ankylosing spondylitis Essential hypertension 10/23/2021 Pneumonia Pleural effusion drain 6 times Family History Medical History Relation Name Comments Depression Brother Nile Hyperlipidemia Brother Nlie Hypertension Brother Nile Obesity Brother Nile Substance [...] on file Legal Sex Female 2:20 AM CRIMINALIST Gender Identity Female 08/21/2020 9:29 PM CDT Sexual Orientation Straight 08/21/2020 9: 29 PM CDT 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 Not on file Not on file Not [...] 18-64 1995 Breast Cancer Screening-Mammogram 02/28/2023 02/28/2022, 11/09/2020, 10/25/2019 Covid-19 Vaccine ( season) 2024 02/12/2022, 01/01/2021, 08/05/2020, Additional history exists Influenza Vaccine (#1) 2025 , 02/10/2020, 02/09/2019, Additional history exists Colon Cancer Screening-Colonoscopy 07/20/2030 07/20/2020 Pneumococcal vaccine <65 Aged Out No longer eligible based on patient's age to complete this topic Procedures Procedure Name Priority Date/Time Associated Diagnosis Comments DEVICE CHECK - REMOTE Routine 11/10/2024 3:00 PM CDT Syncope and collapse Status post placement of implantable loop recorder DIAGNOSTIC MAMMOGRAM BILATERAL W JAVAN Schedule Routine, Read Routine (OP Routine) 02/28/2022 11:30 AM CDT Mass of breast, unspecified laterality COLONOSCOPY 07/20/2020 9:05 AM CRIMINALIST from Last 3 Months or Most Recently Relevant to Health Maintenance Results * DEVICE CHECK - REMOTE (11/10/2024 3:00 PM CDT) Anatomical Region Laterality Modality Other Narrative 12/03/2024 1:34 PM CDT Medtronic LINQ11 Loop Recorder. Dx; Syncope, Palpitations. DOI 02/11/2022Tanner. Carelink remote f/u. Routine ILR remote. Normal device function. Battery function-good. Presenting rhythm: Sinus tachycardia Medications: No anticoagulation or cardiac meds Counters since last scheduled transmission on 09/20/24. No auto or patient recorded episodes noted. See scanned report. CareLink remote f/u 12/13/24. Nestor Romero, FLORIDALMA us Shekhar Garcia MD CV CARDIAC [facility] Final Result * Diagnostic Mammogram Bilateral [...] Final Result * COLONOSCOPY (07/20/2020 9:05 AM CRIMINALIST) Anatomical Region Laterality Modality Other Narrative Procedure Note Fausto Delgado MD - 07/20/2020 9:05 AM CST GI ENDOSCOPY [facility] Patient Name: Corrie Garcia Procedure Date: 07/20/2020 9:05 AM Date of : 1975 Admit Type: Outpatient Age: 45 Gender: Female Attending MD: Fausto Delgado M.D. Room: [facility] ENDOSCOPY ROOM 3 Note Status: Finalized Procedure: [...] The scope was passed under direct vision.The [id number] endoscope was introduced through the anus [...] On: 07/20/2020 9:05 AM Recognized by the [place] [employer] G[employer]intestinal End[employer] for promoting quality in endoscopy Fausto Delgado MD ENDOSCOPY PROCEDURES Final Re sult from Last 3 Months or Most Recently Relevant to Health Maintenance Insurance How do you roll[place] you [place] Advance Directives For more information, please contact: [phone] * Full Code (Latest Code Status on File) Date Activated Date Inactivated Comments 07/20/2020 8:24 AM 07/20/2020 2:42 PM Care Teams Roll Contour Grinder Relationship Specialty Start Date End Date Morena Sprague DO PCP - General Family Medicine 03/13/21 Omar Valenzuela PA [address] [place] [address] Physician Chaser Apprentice Orthopedic Surgery 09/21/24
--- OUTSIDE RECORDS SUMMARY | 2024-12-24 14:45 | XMS_ITS | Encounter Summary ---
Author Organization [facility] Address [address] [place] [address] Care Team Providers Care Dairy Cattle Farmer Name Role Phone Morena Sprague DO Primary Care Provider [phone]- [phone] Omar Valenzuela Unavailable [phone] Encounter Details Date Type Department Care Team (Late st Contact Info) Description 07/12/2024 Orders Only [facility] Health Information Management [address] [place] [address] Scanning, Provider Social History Tobacco Use Types [...] on file Legal Sex Female 2:20 AM BUSINESS RULES ANALYST Gender Identity Female 08/21/2020 9:29 PM CDT Sexual Orientation Straight 08/21/2020 9: 29 PM CDT 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
--- OUTSIDE RECORDS SUMMARY | 2024-12-24 14:45 | XMS_ITS | Encounter Summary ---
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
--- OUTSIDE RECORDS SUMMARY | 2024-12-24 14:45 | XMS_ITS | Clinical Summary ---
Author Organization [facility] Radha Mcbride Address [address] [place] [address] Care Team Providers Care Roll Table Operator Name Role Phone Morena Sprague Primary Care Provider [phone]- [phone] Allergies Active Allergy Reactions Criticality Noted Date [...] Description 2025 8:30 AM CDT Office Visit [facility] Oncology and Hematology - [place] [address] [facility] [address] [place] [address] Jeffy Chang MD [address] [facility] [address] [place] [address] Health Maintenance Due Date Last [...] BLUE PPO AETNA O MCR Care Teams Roll Table Operator Relationship Specialty Start Date End Date Morena Sprague DO [address] [facility] [address] [place] [phone] PCP - General Family Practice 10/22/23
--- OUTSIDE RECORDS SUMMARY | 2024-12-24 14:45 | XMS_ITS | Clinical Summary ---
Author Organization [facility] [employer] Address [address] [facility] [place] [place] [address] Care Team Providers Care Staffing Administrator Name Role Phone Geovanny Mayberry MD Primary Care Provider [phone] Geovanny Mayberry MD Unavailable [phone] Source Comments [facility],non-owned Affiliates and Associated Physician Practices is amultiple site organization consisting of ambulatory clinics and hospital sitesin [place], [place], [place] and [place]. This disclosure is being madepursuant to the Care Everywhere program and may not contain all information available regarding this patient. Last updated 18.[facility] Allergies Active Allergy Reactions Criticality Noted Date [...] with food Active vitamin D, ergocalciferol, (DRISDOL) 05887 UNITS capsule Take 50,000 Units by mouth every 30 days Active fluticasone propionate (FLONASE) 50 MCG/ACT nasal sprayIndication s:Acute maxillary sinusitis, recurrence not specified Stirum 2 sprays into each nostril once daily [...] Comments Blood Pressure 118/80 03/18/2017 4:08 PM COMPUTER CONSULTANT Pulse 86 03/18/2017 4:08 PM COMPUTER CONSULTANT Temperature 37.1 C (98.7 F) 03/18/2017 4:08 PM COMPUTER CONSULTANT Respiratory Rate 16 03/18/2017 4:08 PM COMPUTER CONSULTANT Oxygen Saturation 98% 03/18/2017 4:08 PM COMPUTER CONSULTANT Inhaled Oxygen Concentration - - Weight 120.2 kg (265 lb) 03/18/2017 4:08 PM COMPUTER CONSULTANT Height 175.3 cm (5' 9) 03/18/2017 4:08 PM COMPUTER CONSULTANT Body Mass Index 39.13 03/18/2017 4:08 PM COMPUTER CONSULTANT Plan of Treatment Health Maintenance Due Date [...] to complete this topic Insurance ANTHEM ANTHEM [employer] AETNA MEDICARE ADV Care Teams Staffing Administrator Relationship Specialty Start Date End Date Geovanny Mayberry MD [address] [place] [address] PCP - General 09/30/18 Geovanny Mayberry MD [address] [place] [phone] Family Medicine 09/30/18
--- OUTSIDE RECORDS SUMMARY | 2024-12-24 14:45 | XMS_ITS | Encounter Summary ---
Author Organization [facility] Address [address] [place] [address] Phone Care Team Providers Care Air Quality Consultant Name Role Phone Geovanny Mayberry Primary Care Provider [phone] Zina Davis MD Primary Care Provider Emelina Singh DPT Unavailable [phone] Morena Sprague DO Primary Care Provider [phone] Omar Valenzuela Unavailable [phone] Encounter Details Date Type Department Care Team (Latest Contact Info) Description 10/05/2014 Orders Only [facility] Scanning, Provider Social History Tobacco Use Types Packs/Day Years Used Date Smoking Tobacco: Never Assessed Comments Unknown Sex and Gender Information Value Date Recorded Sex Assigned at Not on file Legal Sex Female 2:20 AM GROCERY CLERK MARKING Gender Identity Female 08/21/2020 9:29 PM CDT [...] on filedocumented in this encounter Care Teams Air Quality Consultant Relationship Specialty Start Date End Date Geovanny MayberryRadu [address] [place] [address] PCP - General 08/04/17 03/04/19 Zina Davis MD [address] [place] [address] PCP - General Family Practice 03/05/19 03/12/21 Morena Sprague DO [address] [place] [address] PCP - General Family Medicine 03/13/21 Emelina Singh DPT [address] [place] [address] Physical Therapist Physical Therapy 06/23/19 03/16/20 Omar Valenzuela PA [address] [place] [address] [place] [address] Physician Derrick Follower Orthopedic Surgery 09/21/24 documented as of this encounter
--- OUTSIDE RECORDS SUMMARY | 2024-12-24 14:45 | XMS_ITS | Clinical Summary ---
Author Organization [facility] Address [address] [place], [place] [id number] Care Team Providers Care Rack Puncher Name Role Phone Morena Sprague DO Primary Care Provider [phone] Social History Tobacco Use Types Packs/Day Years Used Date Smoking Tobacco: Never Assessed Comments Unknown Sex and Gender Information Value Date Recorded Sex Assigned at Not on file Legal Sex Female 8:35 AM LINE SERVICER Gender Identity Not on file Sexual Orientation [...] patient's age to complete this topic Insurance [facility] Care Teams Rack Puncher Relationship Specialty Start Date End Date Morena Sprague DO [address] [place] [address] PCP - General FAMILY PRACTICE 06/03/22
--- OUTSIDE RECORDS SUMMARY | 2024-12-24 14:45 | XMS_ITS | Clinical Summary ---
Author Organization [facility] Address [address] [place] [address] Care Team Providers Care Roguer Name Role Phone Morena Sprague DO Primary Care Provider [phone] Omar Valenzuela PA Unavailable [phone] Allergies Active Allergy Reactions Criticality Noted Date [...] implantable loop record er 02/18/2022 Overview (02/18/2022): [employer]ov[employer] LINQ11 Loop Recorder. Dx; Syncope, Palpitations. DOI [...] w/r/t gut microbiome. Referred to ADA and [employer] websites for additional information on topics [...] not improve, I recommend her seeing a bioinformaticist or CRS. Anxiety and depression 08/04/2017 Panic [...] normal. Assessment & Plan (06/19/2020 3:56 PM POLICY CHANGE CLERKS SUPERVISOR): She presents with extensive prior workup for [...] reflex an refer to rheumatology here at [facility] for second opinion on her joint issues. We will see her back in clinic after her endoscopies for further evaluation and to make decisions about potential treatments. Encounters Date Type Department Care Team Description 12/13/2024 7:30 AM CDT Ancillary Procedure [facility] Cardiology [address] [place] [address] [place] [phone] Syncope and collapse; Status post placement of implantable loop recorder 11/01/2024 7:45 AM CDT Ancillary Procedure [facility] Cardiology [address] [place] [phone] Palpitations (Primary Dx); Syncope and collapse; Status post placement of implantable loop recorder 10/11/2024 3:30 PM CDT Office Visit [facility] Orthopedic and Sports Medicine [address] [place] [phone] Omar Valenzuela PA Aftercare following surgery of the musculoskeletal system (Primary Dx) 09/29/2024 Telephone [facility] Orthopedics and Sports Medicine [address] [facility] [address], [place] [address] Niko Boone PA 09/28/2024 Orders Only [facility] Orthopedics and Sports Medicine [address] [facility] [address] [place] [address] Niko Boone PA from Last [...] - 05/11/2015 BLADDER SURGERY 05/12/2018 - 05/11/2019 [place] ARTHRP KNE CONDYLE&PLATU MEDIAL&LAT COMPARTMENTS 03/15/2020 Left [place] - Olga KNEE ARTHROSCOPY ABDOMINAL SURGERY 1994 [...] on file Legal Sex Female 2:20 AM POLICY CHANGE CLERKS SUPERVISOR Gender Identity Female 08/21/2020 9:29 PM CDT Sexual Orientation Straight 08/21/2020 9: 29 PM CDT 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 Not on file [...] breast, unspecified laterality COLONOSCOPY 07/20/2020 9:05 AM POLICY CHANGE CLERKS SUPERVISOR from Last 3 Months or Most Recently [...] us Shekhar Garcia MD CV CARDIAC [facility] Final Result * Diagnostic Mammogram Bilateral [...] Final Result * COLONOSCOPY (07/20/2020 9:05 AM POLICY CHANGE CLERKS SUPERVISOR) Anatomical Region Laterality Modality Other Narrative Procedure Note Fausto Delgado MD - 07/20/2020 9:05 AM CST GI ENDOSCOPY [facility] Patient Name: Corrie Garcia Procedure Date: 07/20/2020 9:05 AM Date of : 1975 Admit Type: Outpatient Age: 45 Gender: Female Attending MD: Fausto Delgado M.D. Room: [facility] ENDOSCOPY ROOM 3 Note Status: [...] The scope was passed under direct vision.The [id number] endoscope was introduced through the anus [...] On: 07/20/2020 9:05 AM Recognized by the [place] Society for Gastrointestinal Endoscopy for promoting quality in endoscopy Fausto Delgado MD ENDOSCOPY PROCEDURES Final Re sult from Last 3 Months or Most Recently Relevant to Health Maintenance Insurance Gentis MD AETNA MEDICARE GOLD Gentis MD TNA MEDICARE GOLD Gentis MD AETNA MEDICARE GOLD Advance Directives For more information, please contact: [phone] * Full Code (Latest Code Status on File) Date Activated Date Inactivated Comments 07/20/2020 8:24 AM 07/20/2020 2:42 PM Care Teams Roguer Relationship Specialty Start Date End Date Morena Sprague DO PCP - General Family Medicine 03/13/21 Omar Valenzuela PA [address] [address] [place] [address] Physician Physical Therapist Technician Orthopedic Surgery 09/21/24
--- OUTSIDE RECORDS SUMMARY | 2024-12-24 14:45 | XMS_ITS | Clinical Summary ---
Author Organization [facility] Address [address] [place] [address] Phone Care Team Providers Care Furniture Installer Name Role Phone PoonamsusiMorena fernandez Primary Care Provider [phone] Medications DULoxetine (CYMBALTA) [address] [...] patient's age to complete this topic Insurance [facility] MEDICARE C AETNA Care Teams Furniture Installer Relationship Specialty Start Date End Date Morena Sprague DO [address] [place] [address] PCP - General Family Medicine 10/30/22
== END 2024-12-24 15:20 | disposition left against medical advice (07) ==
PROVIDERS: PCP Family Medicine
DX: K92.0 Hematemesis (principal)
CPT/HCPCS: 99199

== ENCOUNTER 2024-12-27 00:24 | Day surgery (SDC) | payer BC, MEDICARE, SELFPAY ==
[2024-12-15 09:31] VITALS: BMI 26.5
--- NOTE | 2024-12-15 09:42 | PC.NURSE ---
Report to the Outpatient Waiting Room, entrance under the green pavilion located off [facility], at time 0730_ on date _12/27/24_. Planned Procedure Time: _0930 Time changes happen often and if your time is changed the preop area will call you the afternoon before. - You and your visitor will be asked to self-screen and do not enter if you have any COVID symptoms. Please call surgeon if you need to reschedule. - A mask is optional within the hospital at this time. Patients may have clear liquids (water, carbonated beverages, clear teas, apple juice) until 3 hours prior to surgery with a maximum of 20 ounces. - No food from midnight until time of surgery and no smoking, or chewing tobacco (or any form of nicotine). No chewing gum, candy or mints. - Infants may have breast milk until 4 hours before surgery, formula 6 hours prior to surgery. - Children will be allowed to drink immediately following surgery.? If applicable, please bring a bottle or sippy cup to assist with drinking. Juice, water, soda, and popsicles are readily available.? For infants on formula, please bring formula the day of surgery.? Pacifiers are allowed. Take only the following medications with a SIP of water on the morning of surgery: _GABAPENTIN, DULOXETINE DO NOT STOP ANY OF YOUR OTHER PRESCRIPTION MEDICATIONS PRIOR TO SURGERY EXCEPT THE FOLLOWING Hold all vitamins and supplements for 3 days per anesthesiologist. Medications to discontinue per physician ZEPBOUND Date to take last dose___12/13/24 Please no make-up, nail belarusian, hairspray, perfume, deodorant, or body powder the day of surgery.? No jewelry (including any body piercings) or valuables the day of surgery, leave them at home.? Please take a shower or bath the night before, or the morning of, surgery with an antibacterial soap.? Wear comfortable, loose fitting clothing.? Children are encouraged to wear pajamas. - Jewelry must be removed prior to entering the operating room.? Rings and piercings that are not removed may be cut off. - The hospital will not accept responsibility for valuables.? - Please leave all valuables, including medications, at home the day of surgery. If you are going home after surgery, a licensed waste collection driver must drive you home.? - NO public transportation without another adult if you receive anesthesia. - We recommend that an adult stay with you for 24 hours following discharge. - We also recommend that you do not drive, make important decision, drink alcoholic beverages, or take any drugs that were not prescribed by your health care provider for at least 24 hours after your discharge time. For Pediatric surgeries, we recommend two adults accompany the child home. Follow any additional instructions given to you from your surgeon. Telephone instructions given to ____PATIENT and asked if any additional questions and then verbalized understanding. Patient advised to call surgeon office or pre surgery nurse liaison [phone] if any additional questions.
--- NOTE | 2024-12-23 07:26 | PM.IMHP ---
H&P: HPI History of Present Illness Date/Time: 12/23/24 07:26 Chief Complaint: Patient is status post right total knee arthroplasty. She has catching locking and pain in the right knee particularly when she tries to extend the knee. It is worse with activity somewhat relieved by rest. Unfortunately she has failed conservative treatment. Review of Systems Musculoskeletal: Musculoskeletal: Reports arthralgias and Reports joint swelling PMFSH Past Medical History Medical History History of fainting Inflammatory bowel disease Depression with anxiety Irritable bowel syndrome [place] esophagus Acid reflux Psoriatic arthritis (~2019) Restless leg syndrome Insomnia Enteropathic arthritis Anxiety Vitamin D deficiency Anemia Depression Arthritis Fibromyalgia (~2008) Fibroids Endometriosis Hiatal hernia Crohn's proctitis She notes it has been labelled on the Crohn's umbrella, but denies actually having Crohn's Interstitial cystitis Surgical History Surgical History History of arthroplasty of right knee (05/26/23) History of loop recorder (02/2022) For recurrent syncope/near-syncope. History of thyroid cyst (1993) History of partial hysterectomy History of endometrial ablation History of knee replacement procedure of right knee 05/26/23 History of wisdom tooth extraction History of bladder surgery History of left knee replacement (02/2020) Per Dr. Espinoza History of breast surgery (2018) Incision and drainage of right breast abscess. History of parotid gland excision (2010) Benign tumor. History of cholecystectomy (2004) History of dilation and curettage 2008 - 2009 multiple History of repair of rectocele (2018) History of gastric bypass (2014) Family History Family History Father Hypertension Family history of elevated blood lipids Family history of arthritis Mother Hypertension Family history of elevated blood lipids Family history of osteoporosis Family history of malignant neoplasm of breast Grandparent Family history of osteoporosis Hypertension Family history of Alzheimer's disease Family history of emphysema Family history of malignant neoplasm of ovary Sibling Hypertension Family history of arthritis Other Alcoholism Asthma Social History Social History (Updated 12/07/24 @ 09:20 by Gillian Pelaez RAILWAY SIGNAL ELECTRICIAN) Social History: Surrogate medical decision maker: Valerio Lieberman, spouse. Code status: Full code. Smoking packs per day: 1 Smoking cigarettes per day: 20.0 Years smoked: 5 Smoking pack-years: 5.00 Smoking status: Former smoker Tobacco type: cigarettes Second hand tobacco smoke exposure: No Smoking end date: 05/12/00 Additional smoking assessment comments: QUIT 2002 Alcohol intake: never Substance use: former Substance use type: marijuana Other substance usage details: CBD GUMMIES Last use: 12/08/24 Do You Feel Safe in your Home?: Yes Lack of Transportation: YES Lack of Food: Never True Current Housing: I Have Housing Concerned About Future Housing: No Difficulty Paying Gas/Electric Bills: No Difficulty Paying for Meds: No Currently Unemployed: No Education: Bachelor's Degree Difficulty w/ Childcare or Family Care: No Living arrangements: with family Additional living arrangements comments: Lives with spouse and children. 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 Gender identity (if verbalized by the patient): Female Spiritual care concerns: No Meds Home Medications and Allergies Home Medications ?Medication ?Instructions ?Recorded ?Confirmed ?Type duloxetine 60 mg capsule,delayed 60 mg PO BID #60 caps 06/15/21 12/15/24 Rx release cholecalciferol (vitamin D3) 125 125 mcg PO DAILY 02/08/22 12/15/24 History mcg (5,000 unit) tablet (Vitamin D3) ropinirole 1 mg tablet 1 mg PO BID RLS 11/24/22 12/15/24 History docusate sodium 50 mg capsule 50 mg PO TID 05/15/23 12/15/24 History (Stool Softener) doxepin 10 mg capsule 10 mg PO QHS 08/07/23 12/15/24 History acetaminophen 500 mg tablet 1,000 mg (2 x 500 mg) PO Q6H PRN 03/18/24 12/15/24 Rx (Tylenol Extra Strength) pain #50 tabs gabapentin 600 mg tablet 600 mg PO TID #90 tabs 07/07/24 12/15/24 Rx leflunomide 20 mg tablet 20 mg PO DAILY 08/02/24 12/07/24 History tirzepatide (weight loss) 15 15 mg (0.5 mL) subcut WEEKLY #6 mL 08/02/24 12/15/24 Rx mg/0.5 mL subcutaneous pen injector (Zepbound) clobetasol 0.05 % topical cream 1 applic topical DAILY 08/11/24 12/15/24 History tapinarof 1 % topical cream (Vtama) 1 applic topical DAILY 08/11/24 12/15/24 History pravastatin 20 mg tablet 20 mg PO QHS #90 tabs 08/13/24 12/15/24 Rx calcium citrate 600 mg PO BID 08/17/24 12/15/24 History sulfasalazine 500 mg 500 mg PO TID 08/17/24 12/07/24 History tablet,delayed release ixekizumab 80 mg/mL subcutaneous 80 mg subcut ONCE 08/19/24 12/15/24 History auto-injector (Taltz Autoinjector) aripiprazole 10 mg tablet 5 mg PO DAILY 12/07/24 12/15/24 History cyclobenzaprine 10 mg tablet 10 mg PO TID 12/07/24 12/15/24 History Allergies Allergy/AdvReac Type Severity Reaction Status Date / Time amoxicillin Allergy Severe Hives Verified 12/15/24 09:26 Penicillins Allergy Severe Hives Verified 12/15/24 09:26 adhesive Allergy Intermediate BLISTERS/RA Verified 12/15/24 09:26 SH latex Allergy Intermediate Rash Verified 12/15/24 09:26 clindamycin Allergy Mild Swelling Verified 12/15/24 09:26 zolpidem (From Ambien) AdvReac Intermediate sleep Verified 12/15/24 09:26 walking azithromycin AdvReac Mild Nausea and Verified 12/15/24 09:26 Vomiting ibuprofen AdvReac Mild Heartburn Verified 12/15/24 09:26 Exam Narrative: On exam she has motion of her knee from 0 to 120?. The knee appears to be stable. When she tries to extend her leg she has catching and crunching consistent with scarring of the patella. Neurologically she appears to be intact. She walks with a mildly antalgic gait. Eyes: General: appearance normal, both eyes and all related structures Neck: Neck: supple Resp: Effort & Inspection: normal respiratory effort Cardio: Rate: regular rate Rhythm: regular rhythm Assessment and Plan Assessment and plan (1) Patellar clunk syndrome of right knee: Code(s): M25.861 - Other specified joint disorders, right knee Status: Acute Assessment and Plan: Patient has catching locking and pain in the right knee. She seems to have patellar clunk. The knee itself otherwise looks good. X-rays look good the knee is stable in moves well. I think her most likely diagnosis is patellar crunch. Will proceed with arthroscopy and debridement and synovectomy. I told her I can not give her any guarantees regarding the outcome. I discussed the risks, benefits, limitations, and alternatives in detail. Will proceed per her request.
[2024-12-27] VITALS (9 sets, daily range): BP systolic 103–135; BP diastolic 65–89; PULSE 74–96; RESP 13–18; TEMP 36–36.6; O2SAT 96–100
--- OUTSIDE RECORDS SUMMARY | 2024-12-27 00:27 | XMS_ITS | Patient Health Record ---
Author Organization [facility] [employer] Address [address] [place] [address] Care Team Providers Care Cutting Supervisor Name Role Phone Morena Sprague DO Primary Care Provider UnavailAaron Luciano Unavailable [phone] Allergies Allergen (clinical drug ingredient) Drug/Non Drug [...] 80 MCG-4.5 MCG/ACTUATION AEROSOL INHALER *Reorder from [employer] for eRx and Interaction Alerts* 09/24/2023 Active [...] MG/0.5 ML SUBCUTANEOUS PEN INJECTOR *Reorder from [employer] for eRx and Interaction Alerts* 09/24/2023 Active [...] 02/09/2017 Administered MMR Unknown 03/06/2016 Administered Novel Opuwsphfr-A3G3-98, preservative free Unknown 02/10/2020 Administered Pfizer Biontech [...] Risk Notes Problem Mild recurrent major depression (19199220) Major depressive disorder, recurrent, mild (F33.0) Active confirmed Problem Generalized anxiety disorder (F41.1) Active confirmed Problem Restless legs syndrome (06334854) Restless legs syndrome (G25.81) Active confirmed Problem Insomnia (810697466) Other insomnia (G47.09) Active confirmed Vital Signs Height-cm 175.26 cm 06/16/2024 Height 69.00 in 06/16/2024 Encounters Encounter Location Date Provider Diagnosis [facility] [place] [address] [facility] [address] [place] [address] 06/16/2024 Aaron Pop Generalized anxiety disorder F41.1 ; Major depressive disorder, recurrent, mild F33.0 ; Other insomnia G47.09 ; Restless legs syndrome G25.81 and Major depressive disorder, recurrent severe without psychotic features 296.33 [facility] [employer] [place] [address] [address] 10/19/2024 Aaron Pop Generalized anxiety disorder F41.1 ; Major depressive disorder, recurrent, mild F33.0 ; Other insomnia G47.09 ; Restless legs syndrome G25.81 and Major depressive disorder, recurrent severe without psychotic features 296.33 [facility] [employer] [facility] [address] [address] 11/23/2024 Aaron Pop Generalized anxiety disorder F41.1 ; Major depressive disorder, recurrent, mild F33.0 ; Other insomnia G47.09 and Restless legs syndrome G25.81 [facility] [employer] [place] [address] [address] 03/19/2024 Aaron Pop Major depressive disorder, recurrent, mild F33.0 [facility] [place] [address] [address] 03/19/2024 Aaron Pop Assessments Encounter Date Diagnosis (ICD Code) Assessment Notes Treatment Notes Treatment Clinical Notes Section Notes 03/19/2024 Major depressive disorder, recurrent, mild (ICD-10 - F33.0) 06/16/2024 Generalized anxiety disorder (ICD-10 - F41.1) stable 10/19/2024 Generalized anxiety disorder (ICD-10 - F41.1) stable 11/23/2024 Generalized anxiety disorder (ICD-10 - F41.1) stable 11/23/2024 Major depressive disorder, recurrent, mild (ICD-10 - F33.0) Cymbalta 60mg bid, abilify 10mg daily 06/16/2024 Major depressive disorder, recurrent, mild (ICD-10 - F33.0) Cymbalta 60mg bid, abilify 10mg daily 10/19/2024 Major depressive disorder, recurrent, mild (ICD-10 - F33.0) Cymbalta 60mg bid, abilify 10mg daily 06/16/2024 Other insomnia (ICD-10 - G47.09) Doxepin 10mg hs 11/23/2024 Other insomnia (ICD-10 - G47.09) Doxepin 10mg hs 10/19/2024 Other insomnia (ICD-10 - G47.09) Doxepin 10mg hs 10/19/2024 Restless legs syndrome (ICD-10 - [...] for 90 days. - Send prescriptions to [facility] pharmacy. Follow-up: - Schedule a follow-up appointment in 4 months. - Patient will schedule the appointment through the [facility] maura. - Encourage the patient to reach [...] is currently under the care of a neckties painter and is taking Tylenol 4 for pain control. Additionally, steps are being taken to obtain a medical marijuana card for potential pain management. Plan: - Continue current pain management regimen: - Tylenol 4 - gabapentin - duloxetine - Follow up with neckties painter as scheduled - Proceed with obtaining [...] Details Provider Name:Aaron wood, 12/29/2024 09:15:00 AM, [address], [facility] [address], [place], [address], Insurance Providers Payer Name Payer Address Payer Phone Subscriber Number Group Number Insured Name Patient Relationship to Insured Coverage Start Date Coverage End Date [employer] [employer] [address] [place] [address] [id number] ANNABELLA MUKHERJEE Spouse - patient is the spouse of the insured A[employer] [address] [place] [address] [id number] ANNABELLA MUKHERJEE Self - patient is [...] and orders by Dr. Shekhar Garcia at [facility] and through telephone consultations. The patient also had an office visit and telephone check-up with SIOMARA Nelson at [facility], for iron deficiency anemia, thrombocytosis, and B12 deficiency. External device data was also collected multiple times by Provider Abstract at [facility]. The patient's conditions have been managed through [...] Surgical History Surgery Date(Month/Year) Removal of gallbladder (94591) 5 Endometrial ablation (196868924) 009 Endometrial ablation (09100) 05/12/2014 Hysterectomy (65409) 10/14/2018 Total knee replacement (375678292) left 03/16/2020 Breast surgery (22918) 04/20/2019
--- OUTSIDE RECORDS SUMMARY | 2024-12-27 00:27 | XMS_ITS | Clinical Summary ---
Author Organization [facility] Address [address] [place], [place] [id number] Care Team Providers Care Spread Cutter Name Role Phone Morena Sprague DO Primary Care Provider [phone] Social History Tobacco Use Types Packs/Day Years Used Date Smoking Tobacco: Never Assessed Comments Unknown Sex and Gender Information Value Date Recorded Sex Assigned at Not on file Legal Sex Female 8:35 AM MANAGER STRATEGIC MARKETING Gender Identity Not on file Sexual Orientation [...] patient's age to complete this topic Insurance [facility] [[email or web address] AEST. [facility] Care Teams Spread Cutter Relationship Specialty Start Date End Date Morena Sprague DO [address] [place] [address] PCP - General FAMILY PRACTICE 06/03/22
--- OUTSIDE RECORDS SUMMARY | 2024-12-27 00:27 | XMS_ITS | Clinical Summary ---
Author Organization [facility] Address [address] [place] [address] Care Team Providers Care Filling Hauler Name Role Phone Morena Sprague Primary Care Provider [phone] Allergies Active Allergy Reactions Criticality Noted Date [...] Description 2025 8:30 AM CDT Office Visit [facility] - [place] [address] [facility] [address] [place] [address] Jeffy Chang MD [address] [facility] [address] [place] [address] Health Maintenance Due Date Last [...] BLUE PPO AETNA O MCR Care Teams Filling Hauler Relationship Specialty Start Date End Date Morena Sprague DO [address] [facility] [address] [place] [phone] PCP - General Family Practice 10/22/23
--- OUTSIDE RECORDS SUMMARY | 2024-12-27 00:27 | XMS_ITS | Encounter Summary ---
Author Organization [facility] Address [address] [place] [address] Phone Care Team Providers Care Community Support Specialist Name Role Phone Geovanny Mayberry Primary Care Provider [phone] Zina Davis MD Primary Care Provider Emelina Singh DPT Unavailable [phone] Morena Sprague DO Primary Care Provider [phone] Omar Valenzuela Unavailable [phone] Encounter Details Date Type Department Care Team (Latest Contact Info) Description 10/05/2014 Orders Only [facility]GT Scanning, Provider Social History Tobacco Use Types Packs/Day Years Used Date Smoking Tobacco: Never Assessed Comments Unknown Sex and Gender Information Value Date Recorded Sex Assigned at Not on file Legal Sex Female 2:20 AM RAIL SWITCHMAN Gender Identity Female 08/21/2020 9:29 PM CDT [...] on filedocumented in this encounter Care Teams Community Support Specialist Relationship Specialty Start Date End Date Geovanny MayberryRadu [address] [place] [address] PCP - General 08/04/17 03/04/19 Zina Davis MD [address] [place] [address] PCP - General Family Practice 03/05/19 03/12/21 Morena Sprague DO [address] [place] [address] PCP - General Family Medicine 03/13/21 Emelina Singh DPT [address] [place] [address] Physical Therapist Physical Therapy 06/23/19 03/16/20 Omar Valeznuela PA [address] [place] [address] [place] [address] Physician Trailer Body Assembler Orthopedic Surgery 09/21/24 documented as of this encounter
--- OUTSIDE RECORDS SUMMARY | 2024-12-27 00:27 | XMS_ITS | Encounter Summary ---
Author Organization [facility] Address [address] 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
--- OUTSIDE RECORDS SUMMARY | 2024-12-27 00:27 | XMS_ITS | Clinical Summary ---
Author Organization [facility] Address [address] [place] [address] Phone Care Team Providers Care Home Energy Inspector Name Role Phone PoonamsusiMorena fernandez Primary Care Provider [phone] Medications DULoxetine (CYMBALTA) [address] [...] age to complete this topic Insurance [facility] MEDICARE C AETNA Care Teams Home Energy Inspector Relationship Specialty Start Date End Date Morena Sprague DO [address] [place] [address] PCP - General Family Medicine 10/30/22
--- OUTSIDE RECORDS SUMMARY | 2024-12-27 00:27 | XMS_ITS | Encounter Summary ---
Author Organization [facility] Address [address] [place] [address] Care Team Providers Care Mobile Disc Jockey Name Role Phone Morena Sprague DO Primary Care Provider [phone] Omar Valenzuela Unavailable [phone] Encounter Details Date Type Department Care Team (Late st Contact Info) Description 07/12/2024 Orders Only [facility] Health Information Management [address] [place] [address] Scanning, Provider Social History Tobacco Use Types [...] on file Legal Sex Female 2:20 AM WIND ENERGY PROJECT MANAGER Gender Identity Female 08/21/2020 9:29 PM CDT Sexual Orientation Straight 08/21/2020 9: 29 PM CDT 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
--- OUTSIDE RECORDS SUMMARY | 2024-12-27 00:28 | XMS_ITS | Clinical Summary ---
Author Organization [facility] Address [address] [place] [address] Care Team Providers Care Wallcovering Texturer Name Role Phone Morena Sprague DO Primary Care Provider [phone] Omar Valenzuela PA Unavailable [phone] Allergies Active Allergy Reactions Criticality Noted Date [...] implantable loop record er 02/18/2022 Overview (02/18/2022): [employer] LINQ11 Loop Recorder. Dx; Syncope, Palpitations. DOI [...] w/r/t gut microbiome. Referred to ADA and [facility] websites for additional information on topics [...] not improve, I recommend her seeing a retoucher or CRS. Anxiety and depression 08/04/2017 Panic [...] normal. Assessment & Plan (06/19/2020 3:56 PM RESTAURANT AREA MANAGER): She presents with extensive prior workup for [...] reflex an refer to rheumatology here at [facility] for second opinion on her joint issues. We will see her back in clinic after her endoscopies for further evaluation and to make decisions about potential treatments. Encounters Date Type Department Care Team Description 12/13/2024 7:30 AM CDT Ancillary Procedure [facility] Cardiology [address] [place] [address] [place] [phone] Syncope and collapse; Status post placement of implantable loop recorder 11/01/2024 7:45 AM CDT Ancillary Procedure [facility] Cardiology [address] [place] [phone] Palpitations (Primary Dx); Syncope and collapse; Status post placement of implantable loop recorder 10/11/2024 3:30 PM CDT Office Visit [facility] Orthopedic and Sports Medicine [address] [place] [address] Omar Valenzuela PA Aftercare following surgery of the musculoskeletal system (Primary Dx) 09/29/2024 Telephone [facility] Orthopedics and Sports Medicine [address] [address] Niko Boone PA 09/28/2024 Orders Only [facility] Group Orthopedics and Sports Medicine [address] [place] [address] Niok Boone PA from Last 3 Months Immunizations [...] - 05/11/2015 BLADDER SURGERY 05/12/2018 - 05/11/2019 LA ARTHRP KNE CONDYLE&PLATU MEDIAL&LAT COMPARTMENTS 03/15/2020 Left Rogers - Olga KNEE ARTHROSCOPY ABDOMINAL SURGERY 1994 [...] file Legal Sex Female 2:20 AM RESTAURANT AREA MANAGER Gender Identity Female 08/21/2020 9:29 PM CDT Sexual Orientation Straight 08/21/2020 9: 29 PM CDT 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 Not on file [...] breast, unspecified laterality COLONOSCOPY 07/20/2020 9:05 AM RESTAURANT AREA MANAGER from Last 3 Months or Most Recently [...] us Shekhar Garcia MD [facility] Final Result * Diagnostic Mammogram Bilateral [...] Final Result * COLONOSCOPY (07/20/2020 9:05 AM RESTAURANT AREA MANAGER) Anatomical Region Laterality Modality Other Narrative Procedure Note Fausto Delgado MD - 07/20/2020 9:05 AM CST [facility] Patient Name: Corrie Garcia Procedure Date: 07/20/2020 9:05 AM Date of : 1975 Admit Type: Outpatient Age: 45 Gender: Female Attending MD: Fausto Delgado M.D. Room: [facility] ENDOSCOPY ROOM 3 Note Status: Finalized Procedure: [...] The scope was passed under direct vision.The [id number] endoscope was introduced through the anus [...] On: 07/20/2020 9:05 AM Recognized by the [employer] for promoting quality in endoscopy Fausto Delgado MD ENDOSCOPY PROCEDURES Final Re sult from Last 3 Months or Most Recently Relevant to Health Maintenance Insurance 2-[place] 2-[place] 2-[place] Advance Directives For more information, please contact: [phone] * Full Code (Latest Code Status on File) Date Activated Date Inactivated Comments 07/20/2020 8:24 AM 07/20/2020 2:42 PM Care Teams Wallcovering Texturer Relationship Specialty Start Date End Date Morena Sprague DO PCP - General Family Medicine 03/13/21 Omar Valenzuela PA [address] [place] [address] Physician Registered Nurse Nursery Orthopedic Surgery 09/21/24
--- OUTSIDE RECORDS SUMMARY | 2024-12-27 00:28 | XMS_ITS | Clinical Summary ---
Author Organization [facility] Address [address] [facility] [place] [address] Care Team Providers Care Airplane Cabin Attendant Name Role Phone Geovanny Mayberry MD Primary Care Provider [phone] Geovanny Mayberry MD Unavailable [phone] Source Comments [facility],non-owned Affiliates and Associated Physician Practices is amultiple site organization consisting of ambulatory clinics and hospital sitesin [place], [place], [place] and [place]. This disclosure is being madepursuant to the Care Everywhere program and may not contain all information available regarding this patient. Last updated 18.[facility] Allergies Active Allergy Reactions Criticality [...] with food Active vitamin D, ergocalciferol, (DRISDOL) 19454 UNITS capsule Take 50,000 Units by mouth every 30 days Active fluticasone propionate (FLONASE) 50 MCG/ACT nasal sprayIndication s:Acute maxillary sinusitis, recurrence not specified [place] 2 sprays into each nostril once daily [...] Comments Blood Pressure 118/80 03/18/2017 4:08 PM AUTOMATIC THREAD WINDER Pulse 86 03/18/2017 4:08 PM AUTOMATIC THREAD WINDER Temperature 37.1 C (98.7 F) 03/18/2017 4:08 PM AUTOMATIC THREAD WINDER Respiratory Rate 16 03/18/2017 4:08 PM AUTOMATIC THREAD WINDER Oxygen Saturation 98% 03/18/2017 4:08 PM AUTOMATIC THREAD WINDER Inhaled Oxygen Concentration - - Weight 120.2 kg (265 lb) 03/18/2017 4:08 PM AUTOMATIC THREAD WINDER Height 175.3 cm (5' 9) 03/18/2017 4:08 PM AUTOMATIC THREAD WINDER Body Mass Index 39.13 03/18/2017 4:08 PM AUTOMATIC THREAD WINDER Plan of Treatment Health Maintenance Due Date [...] to complete this topic [facility]IC[facility] ADV Care Teams Airplane Cabin Attendant Relationship Specialty Start Date End Date Geovanny Mayberry MD [address] [place] [address] PCP - General 09/30/18 Geovanny Mayberry MD [address] [place] [phone] Family Medicine 09/30/18
[2024-12-27] MEDS: ACETAMINOPHEN 500 MG TABLET 1000 MG PO (06:20)
[2024-12-27] MEDS: LACTATED RINGERS 1,000 ML 30 ML IV CONT ×2 (06:25→08:36)
--- NOTE | 2024-12-27 06:49 | WPDHPUPDATE1 ---
History and Physical Update Update Date/Time: 12/27/24 06:49 History and Physical has been reviewed, including an updated exam of the patient. There are NO changes in the patient's condition. Risks, benefits, and alternatives have been discussed and questions answered. Patient agrees to proceed with procedure. Will proceed with synovectomy Right Knee. May have to open if needed. Discussed.
--- NOTE | 2024-12-27 06:56 | P.PNAN_ITS ---
Anes - Initial Pre Proc Eval Procedure: Operation Date: 12/27/24 07:30 Proposed Procedures p Right Knee Arthroscopy with Debridement, Possible Open - Geovanny Cyr MD Date/Time: 12/27/24 06:56 Surgeon: Geovanny Cyr MD Pre Op Diagnosis: right patellar crunch Patient Data Age: 49 Gender: F Height: 1.78 m Weight: 87.2 kg Last Vital Signs Temp 36.0 C L 12/27/24 06:05 Pulse 95 12/27/24 06:05 Resp 18 12/27/24 06:05 BP 103/78 12/27/24 06:05 Pulse Ox 99 12/27/24 06:05 O2 Del Method Room Air 12/27/24 06:05 Allergies Allergy/AdvReac Type Severity Reaction Status Date / Time amoxicillin Allergy Severe Hives Verified 12/27/24 06:27 Penicillins Allergy Severe Hives Verified 12/27/24 06:27 adhesive Allergy Intermediate BLISTERS/RA Verified 12/27/24 06:27 SH latex Allergy Intermediate Rash Verified 12/27/24 06:27 clindamycin Allergy Mild Swelling Verified 12/27/24 06:27 zolpidem (From Ambien) AdvReac Intermediate sleep Verified 12/27/24 06:27 walking azithromycin AdvReac Mild Nausea and Verified 12/27/24 06:27 Vomiting ibuprofen AdvReac Mild Heartburn Verified 12/27/24 06:27 Home Medications ?Medication ?Instructions ?Recorded ?Confirmed ?Type duloxetine 60 mg capsule,delayed 60 mg PO BID #60 caps 06/15/21 12/27/24 Rx release cholecalciferol (vitamin D3) 125 125 mcg PO DAILY 02/08/22 12/27/24 History mcg (5,000 unit) tablet (Vitamin D3) ropinirole 1 mg tablet 1 mg PO BID RLS 11/24/22 12/27/24 History docusate sodium 50 mg capsule 50 mg PO TID 05/15/23 12/23/24 History (Stool Softener) doxepin 10 mg capsule 10 mg PO QHS 08/07/23 12/27/24 History acetaminophen 500 mg tablet 1,000 mg (2 x 500 mg) PO Q6H PRN 03/18/24 12/23/24 Rx (Tylenol Extra Strength) pain #50 tabs gabapentin 600 mg tablet 600 mg PO TID #90 tabs 07/07/24 12/27/24 Rx leflunomide 20 mg tablet 20 mg PO DAILY 08/02/24 12/23/24 History tirzepatide (weight loss) 15 15 mg (0.5 mL) subcut WEEKLY #6 mL 08/02/24 12/27/24 Rx mg/0.5 mL subcutaneous pen injector (Zepbound) clobetasol 0.05 % topical cream 1 applic topical DAILY 08/11/24 12/23/24 History tapinarof 1 % topical cream (Vtama) 1 applic topical DAILY 08/11/24 12/23/24 History pravastatin 20 mg tablet 20 mg PO QHS #90 tabs 08/13/24 12/27/24 Rx calcium citrate 600 mg PO BID 08/17/24 12/27/24 History sulfasalazine 500 mg 500 mg PO TID 08/17/24 12/23/24 History tablet,delayed release ixekizumab 80 mg/mL subcutaneous 80 mg subcut ONCE 08/19/24 12/23/24 History auto-injector (Taltz Autoinjector) aripiprazole 10 mg tablet 5 mg PO DAILY 12/07/24 12/27/24 History cyclobenzaprine 10 mg tablet 10 mg PO TID 12/07/24 12/23/24 History hydrocodone 5 mg-acetaminophen 325 1 tablet PO Q4H PRN pain #30 tabs 12/27/24 Rx mg tablet Patient hx anesthesia problems: none Family hx anesthesia problems: none Results Review: All pre-operative results and documents have been reviewed as part of the pre- operative evaluation. [facility] Past Medical History Medical History History of fainting Inflammatory bowel disease Depression with anxiety Irritable bowel syndrome [place] esophagus Acid reflux Psoriatic arthritis (~2019) Restless leg syndrome Insomnia Enteropathic arthritis Anxiety Vitamin D deficiency Anemia Depression Arthritis Fibromyalgia (~2008) Fibroids Endometriosis Hiatal hernia Crohn's proctitis She notes it has been labelled on the Crohn's umbrella, but denies actually having Crohn's Interstitial cystitis Surgical History Surgical History History of arthroplasty of right knee (05/26/23) History of loop recorder (02/2022) For recurrent syncope/near-syncope. History of thyroid cyst (1993) History of partial hysterectomy History of endometrial ablation History of knee replacement procedure of right knee 05/26/23 History of wisdom tooth extraction History of bladder surgery History of left knee replacement (02/2020) Per Dr. Espinoza History of breast surgery (2019) Incision and drainage of right breast abscess. History of parotid gland excision (2010) Benign tumor. History of cholecystectomy (2004) History of dilation and curettage 2008 - 2009 multiple History of repair of rectocele (2018) History of gastric bypass (2014) Family History Family History Father Hypertension Family history of elevated blood lipids Family history of arthritis Mother Hypertension Family history of elevated blood lipids Family history of osteoporosis Family history of malignant neoplasm of breast Grandparent Family history of osteoporosis Hypertension Family history of Alzheimer's disease Family history of emphysema Family history of malignant neoplasm of ovary Sibling Hypertension Family history of arthritis Other Alcoholism Asthma Social History Social History Social History: Surrogate medical decision maker: Valerio Lieberman, spouse. Code status: Full code. Smoking packs per day: 1 Smoking cigarettes per day: 20.0 Years smoked: 5 Smoking pack-years: 5.00 Smoking status: Former smoker Second hand tobacco smoke exposure: No Smoking end date: 05/12/00 Additional smoking assessment comments: patient smokes marijuana most days for pain control Alcohol intake: never Substance use: current Substance use type: marijuana Other substance usage details: GUMMIES @ HX Last use: 01/04/24 Do You Feel Safe in your Home?: Yes Lack of Transportation: YES Lack of Food: Never True Current Housing: I Have Housing Concerned About Future Housing: No Difficulty Paying Gas/Electric Bills: No Difficulty Paying for Meds: No Currently Unemployed: No Education: Bachelor's Degree Difficulty w/ Childcare or Family Care: No Living arrangements: with family Additional living arrangements comments: Lives with spouse and children. 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 Gender identity (if verbalized by the patient): Female Spiritual care concerns: No Anes - Eval Final PreProcedure Day of Procedure 12/27/24 06:56 Patient weight: overweight Heart: regular rate and rhythm Lungs: clear to auscultation Airway: Mallampati scale class II Neurological: alert and oriented Last oral intake: >/= 8 hours ASA classification: III Emergent: no Anesthetic plan: proceed Anesthesia type and monitoring: general LMA and standard monitoring Results Review: All pre-operative results and documents have been reviewed as part of the pre- operative evaluation. Informed Consent: The patient's anesthetic plan and its attendant risks and benefits were discussed with the patient/family/POA. Questions were solicited and answers provided to the satisfaction of the patient/family/POA.
[2024-12-27] MEDS: ceFAZolin 2 GM in SODIUM CHLORIDE 0.9% IV 50 ML 100 ML IVPB (07:23)
[2024-12-27] MEDS: BUPIVACAINE/EPINEPHRINE 0.5% 30 ML VIAL INFILTRATE (07:51)
--- NOTE | 2024-12-27 08:14 | W.PM.PROC2 ---
Procedure Note - Detailed Date of Procedure 12/27/24 Pre-op Diagnosis Right patellar crunch, S/P Right Total Knee Post-op Diagnosis Same Procedure Performed Synovectomy right knee Surgeon Geovanny Cyr MD Anesthesia General Indications Catching and Crunching Description of Procedure Patient brought to operating room #7. A general anesthetic was administered. She was sterilely prepped and draped in usual manner. Superomedial portal was used with the outflow cannula. Inferolateral portal for the scope. Inferomedial portal for the instruments. A diagnostic arthroscopy was performed. She had an intense synovitis in the knee. Using a shaver this was debrided back to a stable base. She had a rather large plica type fold extending into the joint. This was debrided released along with the synovitis behind the patella. This was debrided with a shaver and a cautery, taking care not to go through the tendon. At this point was no further impingement. The knee looked clean was rock stable in both flexion and extension. The wounds were irrigated, hemostasis obtained, and closed with 3-0 Prolene. Sterile dressing was applied. Patient left the operating room satisfactory condition. Estimated Blood Loss 20 Complications No immediate complications Condition Stable Disposition PACU [facility] Billing Surgery - Charge Forward: Surgery Billing (62151 Synovectomy Knee)
[2024-12-27] MEDS: HYDROmorphone HCL INJ (*CRX) 1 MG/ML SYR IV PUSH (08:26)
[2024-12-27] MEDS: fentaNYL CITRATE INJ (*CRX) 100 MCG/2 ML VIAL 25 MCG IV PUSH ×4 (08:48→09:16)
[2024-12-27] MEDS: oxyCODONE HCL (*CRX) 5 MG TAB IR PO (09:38)
== END 2024-12-27 10:20 | disposition home or self-care (01) ==
PROVIDERS: PCP Family Medicine; Visit Provider Orthopaedic Surgery
PROC: (CPT 29870; principal; 2024-12-27 07:30)
DX: M25.861 Other specified joint disorders, right knee (principal); M65.861 Other synovitis and tenosynovitis, right lower leg; K21.9 Gastro-esophageal reflux disease without esophagitis; K58.9 Irritable bowel syndrome, unspecified; G25.81 Restless legs syndrome; G47.00 Insomnia, unspecified; F41.9 Anxiety disorder, unspecified; E55.9 Vitamin D deficiency, unspecified; D64.9 Anemia, unspecified; F32.A Depression, unspecified; M79.7 Fibromyalgia; F41.8 Other specified anxiety disorders; N80.9 Endometriosis, unspecified; M07.60 Enteropathic arthropathies, unspecified site; M19.90 Unspecified osteoarthritis, unspecified site; F12.90 Cannabis use, unspecified, uncomplicated; Z79.891 Long term (current) use of opiate analgesic; Z79.85 Long-term (current) use of injectable non-insulin antidiabetic drugs; Z98.890 Other specified postprocedural states; Z98.891 History of uterine scar from previous surgery; Z90.49 Acquired absence of other specified parts of digestive tract; Z98.84 Bariatric surgery status; Z96.651 Presence of right artificial knee joint; Z87.891 Personal history of nicotine dependence; Z87.19 Personal history of other diseases of the digestive system; Z80.3 Family history of malignant neoplasm of breast; Z80.41 Family history of malignant neoplasm of ovary
CPT/HCPCS: 29875; J0690; A9270; J1100; J1171; J2003; J2250; J2405; J2704; J3010; J7120

== ENCOUNTER 2025-02-04 12:19 | Emergency (ER) | payer BC, MEDICARE, SELFPAY ==
--- OUTSIDE RECORDS SUMMARY | 2025-01-31 04:45 | XMS_ITS ---
Author Organization [facility] [employer] Address [address] [place] [address] Care Team Providers Care Business Education Teacher Name Role Phone Morena Sprague DO Primary Care Provider UnavailAaron Luciano Unavailable [phone] REASON FOR VISIT Follow Up Medications Medication SIG (Take, Route, Frequency, Duration) Notes Start Date End Date Status sulfaSALAzine 500 MG Tablet Delayed Release Oral 09/24/2023 Active OptiChamber Cher SPACER (EA) MISCELLANEOUS 09/24/2023 Active Triamcinolone Acetonide 0.1% Cream External 09/24/2023 Active BUDESONIDE-FORMOTERO L HFA 80 MCG-4.5 MCG/ACTUATION AEROSOL INHALER *Reorder from [employer] for eRx and Interaction Alerts* 09/24/2023 Active Methocarbamol 500 MG Tablet Oral 09/24/2023 Active ZEPBOUND 2.5 MG/0.5 ML SUBCUTANEOUS PEN INJECTOR *Reorder from [employer] for eRx and Interaction Alerts* 09/24/2023 Active [...] Female Encounters Encounter Location Date Provider Diagnosis [facility] [employer] [facility] [address] [address] 01/31/2025 Aaron Pop Generalized anxiety disorder F41.1 [...] discontinuation Provider Name:Aaron wood, 03/07/2025 09:30:00 AM, [address], [facility] [address], [place], [address], History and Physical Notes * HPI (History [...] Hallucinations: no Progress Notes * ANNABELLA GARCIADOB:[birth year] (49 yo F)Acc No.[id number]:01/31/2025 Patient: VON LAZCANOAH Provider: TIFFANI RAZO :1975 A ge:49 Y S ex:Female Date:01/31/2025 Address:[facility] [address] [facility] Pcp:Morena Sprague DO Check In:09:52 AM CSTCheck O ut:10:00 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 Subjective: * Chief Complaints: * F [...] INJECTOR , Notes to Pharmacist: *Reorder from [employer] for eRx and Interaction Alerts*Depakote ER 500 MG Tablet Extended Release 24 Hour Oral Famotidine 40 MG Tablet Oral Methocarbamol 500 MG Tablet Oral BUDESONIDE- FORMOTEROL HFA 80 MCG-4.5 MCG/ACTUATION AEROSOL INHALER , Notes to Pharmacist: *Reorder from [employer] for eRx and Interaction Alerts*Triamcinolone Acetonide 0.1% [...] INJECTOR , Notes to Pharmacist: *Reorder from [employer] for eRx and Interaction Alerts*Taking Depakote ER 500 MG Tablet Extended Release 24 Hour Oral Taking Famotidine 40 MG Tablet Oral Taking Methocarbamol 500 MG Tablet Oral Taking BUDESONIDE-FORMOTEROL HFA 80 MCG-4.5 MCG/ACTUATION AEROSOL INHALER , Notes to Pharmacist: *Reorder from [facility] for eRx and Interaction Alerts*Taking Triamcinolone [...] abilify discontinuation) Billing Information: * Visit Code: 08393 OFFICE OUTPATIENT VISIT 25 MINUTES DETAILED HISTORY AND EXAM/MODERATE MEDICAL DECISION MAKING. Modifiers: 95 * Procedure Codes: * Electronic signature of TIFFANI Garcia on 02/04/2025 at 03:12 PM CDT Sign off status: Pending * Provider: TIFFANI RAZO Date: 0 01/31/2025 Generated for Vicky interiano/Hernan/Don on: 02/04/2025 03:12 PM CDT
[2025-02-04 12:49] VITALS: BP 121/82; PULSE 102; RESP 16; TEMP 36.8; O2SAT 100
--- NOTE | 2025-02-04 13:29 | ECG_ITS ---
Test Date: 2025-02-04 13:35:22 Measurements Intervals Bowen Rate: 101 P: 36 AZ: 153 QRS: -24 QRSD: 90 T: 31 QT: 350 QTc: 454 Interpretive Statements SINUS TACHYCARDIA BORDERLINE LEFT AXIS DEVIATION [QRS AXIS < -20] ABNORMAL RHYTHM ECG Compared to ECG 08/10/2024 11:29:40 Sinus rhythm no longer present Incomplete right bundle-branch block no longer present Electronically Signed On 02-04-2025 20:04:52 CDT by Rishabh Salinas M.D.
--- NOTE | 2025-02-04 14:30 | PC.NURSE ---
Pt is not present in WR upon call at this time.
--- NOTE | 2025-02-04 15:04 | PC.NURSE ---
Pt is still not present in ED WR. Presumed to have left department.
--- OUTSIDE RECORDS SUMMARY | 2025-02-04 15:12 | XMS_ITS | Clinical Summary ---
Author Organization [facility] Address [address] [place] [address] Phone Care Team Providers Care Ticket Clerk Name Role Phone PoonamsusiMorena fernandez Primary Care Provider [phone]- [phone] Medications DULoxetine (CYMBALTA) [address] [...] 10/25/2019, Additional history exists Influenza Immunization (#1) 01/10/202512/10, 02/12/2022, 04/15/2021, Additional history exists SARS-COV-2 Immunization (2024- season) 2025 02/12/2022, 01/01/2021, 08/05/2020, Additional history exists Respiratory [...] patient's age to complete this topic Insurance [facility] MEDICARE C AET[employer] Care Teams Ticket Clerk Relationship Specialty Start Date End Date Morena Sprague DO [address] [place] [address] PCP - General Family Medicine 10/30/22
--- OUTSIDE RECORDS SUMMARY | 2025-02-04 15:12 | XMS_ITS | Clinical Summary ---
Author Organization [facility] Address [address] [place] [address] Care Team Providers Care Reducer Name Role Phone Morena Sprague Primary Care Provider [phone]- [phone] Allergies Active Allergy Reactions Criticality Noted Date [...] Encounters Date Type Department Care Team Description 01/25/2025 External Device Data [facility] ABSTRACTION Provider, Abstract 12/14/2024 External Device Data [facility]STRACTION Provider, [...] Description 2025 8:30 AM CDT Office Visit [facility] Oncology and Hematology - Ger [address] [place] [address] Jeffy Chang MD [address] [facility] [address] [place] [address] Health Maintenance Due Date Last [...] BLUE PPO AETNA O MCR Care Teams Reducer Relationship Specialty Start Date End Date Morena Sprague DO [address] [facility] [address] [place] [address] PCP - General Family Practice 10/22/23
--- OUTSIDE RECORDS SUMMARY | 2025-02-04 15:12 | XMS_ITS | Encounter Summary ---
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
--- OUTSIDE RECORDS SUMMARY | 2025-02-04 15:12 | XMS_ITS | Encounter Summary ---
Author Organization [facility] Address [address] [place] [address] Care Team Providers Care Accounts Payable Analyst Name Role Phone Morena Sprague DO Primary Care Provider [phone]- [phone] Omar Valenzuela Unavailable [phone] Encounter Details Date Type Department Care Team (Late st Contact Info) Description 07/12/2024 Orders Only [facility] Health Information Management [address] [place] [address] Scanning, Provider Social History Tobacco Use Types [...] on file Legal Sex Female 2:20 AM COUNSEL Gender Identity Female 08/21/2020 9:29 PM CDT Sexual Orientation Straight 08/21/2020 9: 29 PM CDT 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
--- OUTSIDE RECORDS SUMMARY | 2025-02-04 15:12 | XMS_ITS | Encounter Summary ---
Author Organization [facility] Address [address] [place] [address] Care Team Providers Care Manager Special Events Name Role Phone Morena Sprague DO Primary Care Provider [phone]- [phone] Omar Valenzuela PA Unavailable [phone] Encounter Details Date Type Department Care Team (Late st Contact Info) Description 01/07/2025 Results Follow-Up [facility] Cardiology [address] [place] [address] Sue Guerrier NP [address] [place] [address] Transthoracic Echo (TTE) Complete W Doppler/CF Social History Tobacco Use Types Packs/Day Years [...] on file 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 Gender Identity Female 08/21/2020 9:29 PM CDT Sexual Orientation Straight 08/21/2020 9: 29 PM CDT 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
--- OUTSIDE RECORDS SUMMARY | 2025-02-04 15:12 | XMS_ITS | Patient Health Record ---
Author Organization [facility] As [employer] [facility] Address [address] [place] [address] Care Team Providers Care Mattress Weaver Name Role Phone Morena Sprague DO Primary Care Provider UnavailAaron Luciano Unavailable [phone] Allergies Allergen (clinical drug ingredient) Drug/Non Drug Allergy documented on EMR Reaction Allergy Type Onset Date Status Substance with penicillin structure and antibacterial mechanism of action (substance) Penicillins Unknown Drug Allergy 07/14/2023 Active Reason For Referral No Information Medications Medication SIG (Take, Route, Frequency, Duration) Notes Start Date End Date Status BUDESONIDE-FORMOTERO L HFA 80 MCG-4.5 MCG/ACTUATION AEROSOL INHALER *Reorder from [employer] for eRx and Interaction Alerts* 09/24/2023 Active Methocarbamol 500 MG Tablet Oral 09/24/2023 Active Famotidine 40 MG Tablet Oral 09/24/2023 Active Depakote ER 500 MG Tablet Extended Release 24 Hour Oral 09/24/2023 Active Acetaminophen-Codein e 300-60 MG Tablet Oral; Duration: 21 Days Active Acetaminophen-Codein e 300-60 MG Tablet TAKE 1 TABLET BY MOUTH TWICE A DAY NEEDED Oral; Duration: 21 Days Active Doxepin HCl 10 MG Capsule 1 capsule at bedtime Oral Once a day; Duration: 90 days 01/31/2025 Active ZEPBOUND 2.5 MG/0.5 ML SUBCUTANEOUS PEN INJECTOR *Reorder from [employer] for eRx and Interaction Alerts* 09/24/2023 Active DULoxetine HCl 60 MG Capsule Delayed Release Particles 1 capsule Oral twice a day; Duration: 90 days 01/31/2025 Active Gabapentin 600 MG Tablet Oral 09/24/2023 Active Doxepin HCl 10 MG Capsule TAKE 1 CAPSULE BY MOUTH EVERYDAY AT BEDTIME; Duration: 90 Active rOPINIRole HCl 1 MG Tablet 1 tablet Oral twice a day; Duration: 90 days 01/31/2025 Active Multivitamin - Tablet 1 tablet Orally Once a day Active Divalproex Sodium ER 500 MG Tablet Extended Release 24 Hour TAKE 1 TABLET TWICE A DAY BY ORAL ROUTE FOR 90 DAYS.; Duration: 90 Active Vitamin B Complex - Tablet as directed Orally Active rOPINIRole HCl 1 MG Tablet TAKE 1 TABLET BY MOUTH TWICE A DAY; Duration: 90 Active Vitamin D 25 MCG (1000 UT) Tablet 1 tablet Orally Once a day Active sulfaSALAzine 500 MG Tablet Delayed Release Oral 09/24/2023 Active OptiChamber Cher SPACER (EA) MISCELLANEOUS 09/24/2023 Active Triamcinolone Acetonide 0.1% Cream External 09/24/2023 Active Immunizations Vaccine Route Administration Date Status [...] 02/09/2017 Administered MMR Unknown 03/06/2016 Administered Novel [id number], preservative free Unknown 02/10/2020 Administered Pfizer [employer]tech Covid-19 Vac cine 2nd dose Unknown 07/11/2020 Administered Pfizer [employer] Covid-19 Vac cine 2nd dose Unknown 08/05/2020 Administered Pfizer [employer] Covid-19 Vac cine 2nd dose Unknown 01/01/2021 Administered Pfizer [employer] Covid-19 Vac cine 2nd dose Unknown 02/12/2022 Administered Social History Tobacco Use: Social History Observation Description Date Details (start date - stop date) Former Smoker 05/12/1992 - 05/12/1997 Sex Assigned At : Social History Observation Description Sex Assigned At Female Social History Tobacco Use: Social Info Question Answer Notes Tobacco Control (Standard) Tobacco use: Former smoker When did you start smoking? 05/12/1992 When did you stop smoking? 05/12/1997 How long has it been since you last smoked? Greater than 10 years Additional Details Category Social Info Options Details Migrated Social History Migrated Social History Alcohol Intake: None 12/21/2020,Tobacco Years: Former smoker 03/14/2020,Smoking Status: 10 05/14/2023 Problems Problem Type SNOMED Code ICD Code Onset Dates Problem Status W/U Status Risk Notes Problem Mild recurrent major depression (42963628) Major depressive disorder, recurrent, mild (F33.0) Active confirmed Problem Generalized anxiety disorder (20153403) Generalized anxiety disorder (F41.1) Active confirmed Problem Restless legs syndrome (06371687) Restless legs syndrome (G25.81) Active confirmed Problem Insomnia (634100048) Other insomnia (G47.09) Active confirmed Vital Signs Height-cm 175.26 cm 06/16/2024 Height 69.00 in 06/16/2024 Encounters Encounter Location Date Provider Diagnosis [facility] [employer] [place] [id number] [facility] [address] [address] 01/31/2025 Aaron Pop Generalized anxiety disorder F41.1 ; Major depressive disorder, recurrent, mild F33.0 ; Other insomnia G47.09 and Restless legs syndrome G25.[address] [address] [address] 06/16/2024 Aaron Pop Generalized anxiety disorder F41.1 ; Major depressive disorder, recurrent, mild F33.0 ; Other insomnia G47.09 ; Restless legs syndrome G25.81 and Major depressive disorder, recurrent severe without psychotic features 296.33 [facility] [address] [place] [address] 10/19/2024 Aaron Pop Generalized anxiety disorder F41.1 ; Major depressive disorder, recurrent, mild F33.0 ; Other insomnia G47.09 ; Restless legs syndrome G25.81 and Major depressive disorder, recurrent severe without psychotic features 296.33 [facility] [place] [address] [place] [address] 11/23/2024 Aaron Pop Generalized anxiety disorder F41.1 ; Major depressive disorder, recurrent, mild F33.0 ; Other insomnia G47.09 and Restless legs syndrome G25.81 [facility] [employer] [facility] [address] [place] [address] 12/29/2024 Aaron Pop Generalized anxiety disorder F41.1 ; Major depressive disorder, recurrent, mild F33.0 ; Other insomnia G47.09 and Restless legs syndrome G25.81 [facility] [employer] [facility] [address] [place] [address] 03/19/2024 Aaron Pop Major depressive disorder, recurrent, mild F33.0 [facility] [employer] [place] [address] [place] [address] 03/19/2024 Aaron Pop Assessments Encounter Date Diagnosis (ICD Code) Assessment Notes Treatment Notes Treatment Clinical Notes Section Notes 03/19/2024 Major depressive disorder, recurrent, mild (ICD-10 - F33.0) 06/16/2024 Generalized anxiety disorder (ICD-10 - F41.1) stable 11/23/2024 Generalized anxiety disorder (ICD-10 - F41.1) stable 12/29/2024 Generalized anxiety disorder (ICD-10 - F41.1) stable 01/31/2025 Generalized anxiety disorder (ICD-10 - F41.1) stable 10/19/2024 Generalized anxiety disorder (ICD-10 - F41.1) stable 01/31/2025 Major depressive disorder, recurrent, mild (ICD-10 - F33.0) 10/19/2024 Major depressive disorder, recurrent, mild (ICD-10 - F33.0) Cymbalta 60mg bid, abilify 10mg daily 12/29/2024 Major depressive disorder, recurrent, mild (ICD-10 - F33.0) 11/23/2024 Major depressive disorder, recurrent, mild (ICD-10 - F33.0) Cymbalta 60mg bid, abilify 10mg daily 06/16/2024 Major depressive disorder, recurrent, mild (ICD-10 - F33.0) Cymbalta 60mg bid, abilify 10mg daily 06/16/2024 Other insomnia (ICD-10 - G47.09) Doxepin 10mg hs 11/23/2024 Other insomnia (ICD-10 - G47.09) Doxepin 10mg hs 12/29/2024 Other insomnia (ICD-10 - G47.09) Doxepin 10mg hs 10/19/2024 Other insomnia (ICD-10 - G47.09) Doxepin 10mg 01/31/2025 Other insomnia (ICD-10 - G47.09) Doxepin 10mg 10/19/2024 Restless legs syndrome (ICD-10 - G25.81) ropinirole 1mg 01/31/2025 Restless legs syndrome (ICD-10 - G25.81) ropinirole 1mg 12/29/2024 Restless legs syndrome (ICD-10 - G25.81) ropinirole 1mg 11/23/2024 Restless legs syndrome (ICD-10 - G25.81) ropinirole 1mg 06/16/2024 Restless legs syndrome (ICD-10 - G25.81) ropinirole 1mg 06/16/2024 Major depressive disorder, recurrent severe without [...] for 90 days. - Send prescriptions to [facility] pharmacy. Follow-up: - Schedule a follow-up appointment in 4 months. - Patient will schedule the appointment through the [employer] maura. - Encourage the patient to reach [...] currently under the care of a paint tinter and is taking Tylenol 4 for pain control. Additionally, steps are being taken to obtain a medical marijuana card for potential pain management. Plan: - Continue current pain management regimen: - Tylenol 4 - gabapentin - duloxetine - Follow up with paint tinter as scheduled - Proceed with obtaining medical [...] efforts have been made to correct them. 12/29/2024 Other Annabella Garcia, female patient with history of knee replacement, presenting for psychiatric medication management follow-up, reporting stable mood and recent medical issues including knee surgery and episode of hematemesis. Mood Disorder Assessment: Patient reports stable mood with no anxiety, nervousness, or depression since the decrease in Abilify dosage from previous visit. Current medications include duloxetine 60 mg daily and Abilify 5 mg. Given the patient's stable mood and lack of psychiatric symptoms, a further reduction in Abilify dosage is being considered. Plan: - Decrease Abilify from 5 mg to 2 mg daily - Continue duloxetine 60 mg daily - Follow up in one month to assess response to medication adjustment - Patient instructed to report any mood changes or return of symptoms Insomnia Assessment: Patient continues to experience sleep disturbances, including sudden onset of sleep during daytime activities and at inappropriate times. This has been ongoing for a couple of months. Previously, insomnia was thought to be pain-related. Given the persistence of symptoms despite pain management and the nature of the sleep disturbances, further evaluation for potential sleep disorders such as narcolepsy is warranted. Plan: - Continue doxepin at bedtime for insomnia - Recommend referral to sleep medicine specialist for evaluation of possible narcolepsy or other sleep disorders - Patient to discuss sleep issues and potential referral with general practitioner at upcoming appointment in early January Restless Leg Syndrome Assessment: Patient continues to require management for restless leg syndrome. Plan: - Continue ropinirole 1 mg twice daily the note is transcribed using speech recognition software. It is a reflection of a visit with the patient. It might have some inaccuracy, including medication names and transcribing errors, though efforts have been made to correct them. Plan Of Treatment Next Appt Details Provider Name:Aaron wood, 03/07/2025 09:30:00 AM, [address], [facility] [address], [place], [address], Insurance Providers Payer Name Payer Address Payer Phone Subscriber Number Group Number Insured Name Patient Relationship to Insured Coverage Start Date Coverage End Date [employer] [employer] [address] [place] [address] [id number] ANNABELLA MUKHERJEE Spouse - patient is the spouse of the insured Norris [address] [place] [address] [id number] ANNABELLA MUKHERJEE Self - patient is the insured Medical (General) History Medical History History ICD Code Imported from [employer]: Th e patient has been under consistent monitoring and treatment from September to November 2023 for palpitations, syncope and collapse, and status post placement of an implantable loop recorder. These conditions were addressed during multiple ancillary procedures and orders by Dr. Shekhar Garcia at [facility] and through telephone consultations. The patient also had an office visit and telephone check-up with SIOMARA Nelson at [facility], for iron deficiency anemia, thrombocytosis, and B12 deficiency. External device data was also collected multiple times by Provider Abstract at [facility]. The patient's conditions have been managed through a combination of in-person visits, telephone consultations, and remote monitoring. Imported from [employer]: On 12/16/2022, the patient was seen by [...] Surgical History Surgery Date(Month/Year) Removal of gallbladder (07288) 5 Endometrial ablation (056618015) 009 Endometrial ablation (39679) 05/12/2014 Hysterectomy (49041) 10/14/2018 Total knee replacement (438703089) left 03/16/2020 Breast surgery (24775) 04/20/2019
--- OUTSIDE RECORDS SUMMARY | 2025-02-04 15:12 | XMS_ITS | Encounter Summary ---
Author Organization [facility] Address [address] [place] [address] Phone Care Team Providers Care Feed Management Advisor Name Role Phone Geovanny Mayberry Primary Care Provider [phone] Zina Davis MD Primary Care Provider Emelina Singh DPT Unavailable [phone] Morena Sprague DO Primary Care Provider [phone] Omar Valenzuela Unavailable [phone] Encounter Details Date Type Department Care Team (Latest Contact Info) Description 10/05/2014 Orders Only [facility] Scanning, Provider Social History Tobacco Use Types Packs/Day Years Used Date Smoking Tobacco: Never Assessed Comments Unknown Sex and Gender Information Value Date Recorded Sex Assigned at Not on file 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 Gender Identity Female 08/21/2020 9:29 PM CDT [...] on filedocumented in this encounter Care Teams Feed Management Advisor Relationship Specialty Start Date End Date Geovanny MayberryRadu [address] [address] PCP - General 08/04/17 03/04/19 Zina Davis MD [address] [place] [place] [address] PCP - General Family Practice 03/05/19 03/12/21 Morena Sprague DO [address] [place] [address] PCP - General Family Medicine 03/13/21 Emelina Singh DPT [address] [place] [address] Physical Therapist Physical Therapy 06/23/19 03/16/20 Omar Valenzuela PA [address] [place] [address] [place] [address] Physician [employer] Screen Watcher Orthopedic Surgery 09/21/24 documented as of this encounter
--- OUTSIDE RECORDS SUMMARY | 2025-02-04 15:13 | XMS_ITS | Clinical Summary ---
Author Organization [facility] [employer] Address [address] [place] [address] Care Team Providers Care Content Development Specialist Name Role Phone Geovanny Mayberry MD Primary Care Provider [phone] Geovanny Mayberry MD Unavailable [phone] Source Comments [facility],non-owned Affiliates and Associated Physician Practices is amultiple site organization consisting of ambulatory clinics and hospital sitesin [place], [place], [place] and [place]. This disclosure is being madepursuant to the Care Everywhere program and may not contain all information available regarding this patient. Last updated 18.[facility] Allergies Active Allergy Reactions [...] with food Active vitamin D, ergocalciferol, (DRISDOL) 45687 UNITS capsule Take 50,000 Units by mouth every 30 days Active fluticasone propionate (FLONASE) 50 MCG/ACT nasal sprayIndication s:Acute maxillary sinusitis, recurrence not specified [place] 2 sprays into each nostril once daily [...] Comments Blood Pressure 118/80 03/18/2017 4:08 PM ACTIVITIES COUNSELOR Pulse 86 03/18/2017 4:08 PM ACTIVITIES COUNSELOR Temperature 37.1 C (98.7 F) 03/18/2017 4:08 PM ACTIVITIES COUNSELOR Respiratory Rate 16 03/18/2017 4:08 PM ACTIVITIES COUNSELOR Oxygen Saturation 98% 03/18/2017 4:08 PM ACTIVITIES COUNSELOR Inhaled Oxygen Concentration - - Weight 120.2 kg (265 lb) 03/18/2017 4:08 PM ACTIVITIES COUNSELOR Height 175.3 cm (5' 9) 03/18/2017 4:08 PM ACTIVITIES COUNSELOR Body Mass Index 39.13 03/18/2017 4:08 PM ACTIVITIES COUNSELOR Plan of Treatment Health Maintenance Due Date [...] 19+ 3-dose series) 02/26/1996 PAP SMEAR 1998 SCREENING FOR DIABETES 03/18/2017 DEPRESSION SCREENING 05/12/2024 MEDICARE AWV CALENDAR YEAR 2024 COVID-19 VACCINE ( season) 2025 INFLUENZA VACCINE (#1) 2025 , 02/10/2020, 02/19/2018, Additional history exists ZOSTER VACCINE [...] to complete this topic Insurance ANTHEM ANTHEM ANTHEM AETNA MEDICARE ADV Care Teams Content Development Specialist Relationship Specialty Start Date End Date Geovanny Mayberry MD [address] [place] [address] PCP - General 09/30/18 Geovanny Mayberry MD [address] [place] [id number] Family Medicine 09/30/18
--- OUTSIDE RECORDS SUMMARY | 2025-02-04 15:13 | XMS_ITS | Clinical Summary ---
Author Organization [facility] Address [address] [place] [address] Care Team Providers [employer] Name Role Phone Morena Sprague DO Primary Care Provider [phone] Omar Valenzuela PA Unavailable [phone] Allergies Active Allergy Reactions Criticality Noted Date Comments Adhesive Rash High 01/07/2025 Amoxicillin Rash,Other (See comments) Medium 03/18/2017 Skin sloughing Erythromycin Vomiting Low 08/04/2017 Ibuprofen Rash,Other (See comments) Medium 08/04/2017 Latex Rash Medium 03/18/2017 Nsaids (Non-Steroidal Anti-Inflammatory Drug) Other (See comments) Low 03/18/2017 Bypass gastric Penicillins Rash,Other (See comments) Medium 08/04/2017 Skin sloughing Tolmetin Unknown Low 03/18/2017 Bypass gastric Zolpidem Other (See comments) High 01/07/2025 Medications cholecalcifero l (VITAMIN D-3) 10,000 unit capsule Take 1 capsule (10,000 Units total) by mouth daily Active multivitamin capsule Take 1 capsule by mouth daily Active DULoxetine DR (CYMBALTA) 60 mg capsule Take 1 capsule (60 mg total) by mouth daily Active gabapentin (NEURONTIN) 600 mg tablet Take 1 tablet (600 mg total) by mouth 3 (three) times a day Active rOPINIRole (REQUIP) 1 mg tabletIndicati ons:Restless Legs Syndrome Take 1 tablet (1 mg total) by mouth 2 (two) times a day After dinner and bedtime 02/25/20 21 Active sulfaSALAzine EN (AZULFIDINE EN) 500 mg EC tablet Take 2 tablets (1,000 mg total) by mouth 2 (two) times a day 04/29/20 23 Active doxepin (SINEquan) 10 mg capsule TAKE 1 CAPSULE BY MOUTH EVERYDAY AT BEDTIME Active clobetasoL (TEMOVATE) 0.05 % external solution APPLY ONCE DAILY TO PSORIASIS AT BEDTIME. 06/18/19 25 Active clobetasoL (TEMOVATE) 0.05 % ointment PLEASE SEE ATTACHED FOR DETAILED DIRECTIONS 06/18/19 25 Active leflunomide (ARAVA) 20 mg tablet Take 1 tablet (20 mg total) by mouth daily 06/21/19 25 Active omeprazole (PriLOSEC) 40 mg capsule Oral 09/24/19 24 Active divalproex ER (DEPAKOTE ER) 500 mg 24 hr tablet TAKE 1 TABLET TWICE A DAY BY ORAL ROUTE FOR 90 DAYS. 06/11/19 25 Active Zepbound 15 mg/0.5 mL pen injector INJECT 15 MG (0.5 ML) SUBCUTANEOUSLY WEEKLY 07/07/19 25 Active ixekizumab (Trading Bloxtz Autoinjector, 2 Pack,) auto-injector Inject 1 mL (80 mg total) under the skin every 30 (thirty) days 07/30/19 25 Active ascorbic acid (VITAMIN C) 500 mg tablet,chewabl e Take 1 tablet/chew tab (500 mg total) by mouth 2 (two) times a day 60 tablet/chew tab 09/22/19 25 Active senna-docusate (PERICOLACE) 8.6-50 mg 1-2 times daily as needed for constipation 60 tablet 1 09/22/19 25 Active calcium citrate (CALCITRATE) 950 mg (200 mg of elemental calcium) tablet Take 600 mg by mouth 3 (three) times a day 08/18/19 25 Active cyclobenzaprin e (FLEXERIL) 10 mg tablet Take 1 tablet (10 mg total) by mouth 3 (three) times a day as needed 01/11/20 25 Active docusate sodium (COLACE) 50 mg capsule Take 1 capsule (50 mg total) by mouth 3 (three) times a day 05/15/19 24 Active doxycycline 100 mg tablet Take 1 tablet/capsule (100 mg total) by mouth 2 (two) times a day 01/12/20 25 Active HYDROcodone-ac etaminophen (NORCO) 5-325 mg per tablet Take 1 tablet by mouth every 6 (six) hours as needed for pain 01/04/20 25 Active nystatin cream Apply topically as needed Active nystatin-triam cinolone cream Apply topically 2 (two) times a day Active pravastatin (PRAVACHOL) 20 mg tablet Take 1 tablet (20 mg total) by mouth daily 08/14/19 25 Active ARIPiprazole (ABILIFY) 2 mg tablet Take 1 tablet (2 mg total) by mouth daily 12/30/19 25 Active CALCIUM ORAL Take by mouth Unsure med dosage every day 025 Discontin ued(Patie nt Reported) ARIPiprazole (ABILIFY) 10 mg tablet Take 1 tablet (10 mg total) by mouth 10/03/19 025 Discontin ued(Patie nt Reported) baclofen (LIORESAL) 10 mg tablet Take 1 tablet (10 mg total) by mouth as needed for muscle spasms 04/19/20 025 Discontin ued(Patie nt Reported) meclizine (ANTIVERT) 25 mg tablet TAKE 1 TABLET BY MOUTH 3 TIMES A DAY NEEDED FOR DIZZINESS 07/13/19 025 Discontin ued(Patie nt Reported) ondansetron (ZOFRAN) 4 mg tabletIndicati ons:Prevention of Post-Operative Nausea and Vomiting Take 1 tablet (4 mg total) by mouth every 6 (six) hours as needed for nausea or vomiting 30 tablet 1 09/22/19 025 Discontin ued(Patie nt Reported) oxyCODONE-acet aminophen (PERCOCET) 5-325 mg per tabletIndicati ons:Pain Take 1-2 tablets by mouth every 4 (four) hours as needed for pain 33 tablet 09/29/19 025 Discontin ued(Patie nt Reported) Active Problems Problem Noted Date Diagnosed Date Pericardial effusion 01/25/2025 Subdeltoid bursitis, left 09/02/2024 Arthritis of left [...] implantable loop record er 02/18/2022 Overview (02/18/2022): [employer] LINQ11 Loop Recorder. Dx; Syncope, Palpitations. DOI [...] w/r/t gut microbiome. Referred to ADA and [employer] websites for additional information on topics [...] not improve, I recommend her seeing a horse show manager or CRS. Anxiety and depression 08/04/2017 [...] normal. Assessment & Plan (06/19/2020 3:56 PM NUTRITION CONSULTANT): She presents with extensive prior workup for [...] reflex an refer to rheumatology here at [facility] for second opinion on her joint issues. We will see her back in clinic after her endoscopies for further evaluation and to make decisions about potential treatments. Encounters Date Type Department Care Team Description 01/25/2025 10:15 AM CDT Office Visit [facility] Cardiology [address] [place] [address] [place] [phone] Enrrique Ga MD Pericardial effusion (Primary Dx) 01/24/2025 7:45 AM CDT Ancillary Procedure [facility] Cardiology [address] [place] [address] [place] [phone] Syncope and collapse; Status post placement of implantable loop recorder 01/07/2025 Telephone [place] [address] [place] [phone] Sue Smith NP 01/07/2025 Results Follow-Up [place] [address] [place] [phone] Sue Smith NP Transthoracic Echo (TTE) Complete W Doppler/CF 01/06/2025 11:15 AM CDT Ancillary Procedure [place] [address] [place] [phone] of the chest 01/06/2025 Telephone [place] [address] [place] [phone] Sue Smith NP 12/13/2024 7:30 AM CDT Ancillary Procedure 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 Not on file [...] Sign Reading Time Taken Comments Blood Pressure 110/82 01/25/2025 10:09 AM CDT Pulse 95 01/25/2025 10:09 AM CDT Temperature 36.2 C (97.1 F) 09/21/2024 11:49 AM CDT Respiratory Rate 16 01/25/2025 10:09 AM CDT Oxygen Saturation 96% 01/25/2025 10:09 AM CDT Inhaled Oxygen Concentration - - Weight 91.2 kg (201 lb) 01/25/2025 10:09 AM CDT Height 177.8 cm (5' 10) 01/25/2025 10:09 AM CDT Body Mass Index 28.84 01/25/2025 10:09 AM CDT Plan of Treatment Health Maintenance Due Date Last Done Comments Depression Screening 1975 Hepatitis C Screening 1975 Hepatitis B Screening 1995 Regular Well Visit/Exam 18-64 1995 Breast Cancer Screening-Mammogram 02/28/2023 02/28/2022, 11/09/2020, 10/25/2019 Covid-19 Vaccine ( season) 2025 02/12/2022, 01/01/2021, 08/05/2020, Additional history exists Influenza Vaccine (#1) 2025 , 12/24/2022, 12/19/2022, Additional history exists Colon Cancer Screening-Colonoscopy 07/20/2030 07/20/2020 DTaP/Tdap/Td Vaccine (3 - Td or Tdap) 04/15/2031 04/15/2021, 09/11/2013 Pneumococcal vaccine <65 Aged Out No longer eligible based on patient's age to complete this topic Procedures Procedure Name Priority Date/Time Associated Diagnosis Comments TRANSTHORACIC ECHO (TTE) COMPLETE W DOPPLER/CF WO CONTRAST Routine 01/06/2025 12:[address] of the chest DEVICE CHECK - REMOTE Routine 12/14/2024 9:02 AM CDT Syncope and collapse Status post placement of implantable loop recorder DEVICE CHECK - REMOTE Routine 11/10/2024 3:00 PM CDT Syncope and collapse Status post placement of implantable loop recorder DIAGNOSTIC MAMMOGRAM BILATERAL W JAVAN Schedule Routine, Read Routine (OP Routine) 02/28/2022 11:30 AM CDT Mass of breast, unspecified laterality COLONOSCOPY 07/20/2020 9:05 AM NUTRITION CONSULTANT from Last 3 Months or Most Recently Relevant to Health Maintenance Results * TRANSTHORACIC ECHO (TTE) COMPLETE W DOPPLER/CF WO CONTRAST (01/06/2025 12:27 PM CDT) Estimated EF 50 % CONS SCIMAGE EF Mod BP 48 % CONS SCIMAGE Anatomical Region Laterality Modality Ultrasound 01/06/2025 11:1 4 AM CDT Narrative 01/06/2025 12:59 PM CDT [facility] Cardiology [address], [place] [address] [address], [place] [address] P:[phone] P:[phone] Echocardiographic Report Patient Name: ANNABELLA GARCIA C : 1975 Study Date: 01/06/2025 11:14:13 AM Sex: F Nail Assembly Machine Operator: Hattie Smith)([place]), [facility] Location: CT Ref Provider: SUE SMITH Height(Cm): 178 BSA: 2.11 Weight(Kg): 89.8 Heart Rate: 84 BP: 115 / 81 Quality: Good Order Provider: SUE SMITH PROCEDURES: Echocardiographic Report: Transthoracic echocardiogram with complete 2D, M-Mode, and color Doppler examination. With Strain Analysis. INDICATIONS: R93.89 Abnormal findings on diagnostic imaging of other specified body structures. MEASUREMENTS: 2D/MM Value Range Doppler Value Range EF Mod BP 48 % [ 54 - 74 ] GIO Vmax 2.67 cm2 [ 2.00 - 4.00 ] Estimated EF 50 % AV Mean PG 5 mmHg LV GLS -12.07 % AV Peak Jayy 1.37 m/s [ 1.00 - 1.70 ] LVIDd 2D 5.38 cm [ 3.80 - 5.20 ] AV Peak PG 8 mmHg LVIDs 2D 4.30 cm [ 2.20 - 3.50 ] AV VTI 27.49 cm LVPWd 2D 0.95 cm [ 0.60 - 0.90 ] LVOT Diam 2.05 cm [ 1.70 - 2.10 ] IVSd 2D 0.97 cm [ 0.60 - 0.90 ] LVOT Peak Jayy 1.11 m/s [ 0.70 - 1.10 ] AoR Diam 2D 3.11 cm [ 2.70 - 3.70 ] LVOT VTI 21.65 cm LA Volume 42.30 ml [ 22.00 - 52.00 ] MV E Peak Jayy 0.66 m/s [ 0.60 - 1.30 ] LA Volume Index 20 cc/m2 [ 16 - 28 ] MV A Peak Jayy 0.72 m/s [ 1.00 - 1.20 ] RA Volume 50.01 ml MV Decel Time 137 msec [ 104 - 258 ] PV Peak Jayy 0.81 m/s [ 0.40 - 0.80 ] TR Peak Jayy 2.07 m/s [ 1.00 - 2.80 ] TR Peak PG 17 mmHg RV S` 12.12 mmHg Lateral E` 0.10 m/s [ 0.10 - 0.15 ] Septal E` 0.08 m/s [ 0.08 - 0.15 ] E` 0.09 m/s E/E` 7 Tapse 2.47 cm [ 1.71 - 5.00 ] 2D/MM Value Range Doppler Value Range - FINDINGS: Interpretation Site: Exam was interpreted at [facility]. Left Ventricle: Normal left ventricular size. Mild concentric left ventricular hypertrophy. Mild global left ventricular systolic dysfunction. Impaired diastolic relaxation Grade I. Ejection fraction is measured at 48 %. Ejection Fraction is visually estimated to be 50 %. Global Longitudinal Strain is -12 %. GLS is abnormal. Right Ventricle: Normal right ventricular size. Normal right ventricular systolic function. Left Atrium: The left atrium is normal in size. Right Atrium: The right atrium is normal in size. Atrial Septum: Normal atrial septum. Mitral Valve: Normal appearance of the mitral valve. Trivial regurgitation of the mitral valve. There is no hemodynamically significant mitral stenosis by Doppler. Aortic Valve: No evidence of hemodynamically significant aortic stenosis by Doppler. Aortic cusps appear mildly sclerotic. Trileaflet aortic valve. Trace aortic valve regurgitation. Tricuspid Valve: Normal appearance of the tricuspid valve. Normal right ventricular systolic pressure. Estimated peak RVSP is 20-25 mmHg. Mild tricuspid regurgitation. Pulmonic Valve: Normal appearance of the pulmonic valve. No pulmonic stenosis. Trivial regurgitation in the pulmonic valve. Pericardium: Small pericardial effusion. Right atrial free wall invagination consistent with increased pericardial pressure. Aorta: Normal aortic root. IVC: Normal size and normal respiratory collapse consistent with normal right atrial pressure (<5 mmHg). CONCLUSIONS: Normal left ventricular size. Mild concentric left ventricular hypertrophy. Mild global left ventricular systolic dysfunction. Impaired diastolic relaxation Grade I. Ejection fraction is measured at 48 %. Ejection Fraction is visually estimated to be 50 %. Global Longitudinal Strain is -12 %. GLS is abnormal. Normal right ventricular systolic pressure. Mild tricuspid regurgitation. Small pericardial effusion. Right atrial free wall invagination consistent with increased pericardial pressure. Normal sinus rhythm. Electronically Signed By: Shekhar Garcia MD 01/06/2025 12:58:57 PM CDT Procedure Note Shekhar Garcia MD - 01/06/2025 [facility]iology [address] [facility] [address], [place] [address] [address], [place] [address] P:[phone] P:[phone] Echocardiographic Report Patient Name: ANNABELLA GARCIA C : 1975 Study Date: 01/06/2025 11:14:13 AM Sex: F Nail Assembly Machine Operator: Hattie Gomez (Hemal)(CT), [facility] Location: [facility] Provider: SUE SMITH Height(Cm): 178 BSA: 2.11 Weight(Kg): 89.8 Heart Rate: 84 BP: 115 / 81 Quality: Good Order Provider: SUE SMITH PROCEDURES: Echocardiographic Report: Transthoracic echocardiogram with complete 2D, M-Mode, and color Dopplerexamination. With Strain Analysis. INDICATIONS: R93.89 Abnormal findings on diagnostic imaging of other specified bodystructures. MEASUREMENTS: 2D/MM Value Range Doppler ValueRange EF Mod BP 48 % [ 54 - 74 ] GIO Vmax 2.67cm2 [ 2.00 - 4.00 ] Estimated EF 50 % AV Mean PG 5mmHg LV GLS -12.07 % AV Peak Jayy 1.37m/s [ 1.00 - 1.70 ] LVIDd 2D 5.38 cm [ 3.80 - 5.20 ] AV Peak PG 8mmHg LVIDs 2D 4.30 cm [ 2.20 - 3.50 ] AV VTI 27.49cm LVPWd 2D 0.95 cm [ 0.60 - 0.90 ] LVOT Diam 2.05cm [ 1.70 - 2.10 ] IVSd 2D 0.97 cm [ 0.60 - 0.90 ] LVOT Peak Jayy 1.11m/s [ 0.70 - 1.10 ] AoR Diam 2D 3.11 cm [ 2.70 - 3.70 ] LVOT VTI 21.65cm LA Volume 42.30 ml [ 22.00 - 52.00 ] MV E Peak Jayy 0.66m/s [ 0.60 - 1.30 ] LA Volume Index 20 cc/m2 [ 16 - 28 ] MV A Peak Jayy 0.72m/s [ 1.00 - 1.20 ] RA Volume 50.01 ml MV Decel Time 137msec [ 104 - 258 ] PV Peak Jayy 0.81 m/s [ 0.40 - 0.80 ] TR Peak Jayy 2.07 m/s [ 1.00 - 2.80 ] TR Peak PG 17 mmHg RV S` 12.12 mmHg Lateral E` 0.10 m/s [ 0.10 - 0.15 ] Septal E` 0.08 m/s [ 0.08 - 0.15 ] E` 0.09 m/s E/E` 7 Tapse 2.47 cm [ 1.71 - 5.00 ] 2D/MM Value Range Doppler ValueRange - FINDINGS: Interpretation Site: Exam was interpreted at [facility]. Left Ventricle: Normal left ventricular size. Mild concentric left ventricularhypertrophy. Mild global left ventricular systolic dysfunction. Impaired diastolic relaxation GradeI. Ejection fraction is measured at 48 %. Ejection Fraction is visually estimated remedios 50 %. Global Longitudinal Strain is -12 %. GLS is abnormal. Right Ventricle: Normal right ventricular size. Normal right ventricular systolicfunction. Left Atrium: The left atrium is normal in size. Right Atrium: The right atrium is normal in size. Atrial Septum: Normal atrial septum. Mitral Valve: Normal appearance of the mitral valve. Trivial regurgitation of the mitralvalve. There is no hemodynamically significant mitral stenosis by Doppler. Aortic Valve: No evidence of hemodynamically significant aortic stenosis by Doppler.Aortic cusps appear mildly sclerotic. Trileaflet aortic valve. Trace aortic valveregurgitation. Tricuspid Valve: Normal appearance of the tricuspid valve. Normal right ventricularsystolic pressure. Estimated peak RVSP is 20-25 mmHg. Mild tricuspid regurgitation. Pulmonic Valve: Normal appearance of the pulmonic valve. No pulmonic stenosis. Trivialregurgitation in the pulmonic valve. Pericardium: Small pericardial effusion. Right atrial free wall invagination consistentwith increased pericardial pressure. Aorta: Normal aortic root. IVC: Normal size and normal respiratory collapse consistent with normal rightatrial pressure (<5 mmHg). CONCLUSIONS: Normal left ventricular size. Mild concentric left ventricularhypertrophy. Mild global left ventricular systolic dysfunction. Impaired diastolic relaxation GradeI. Ejection fraction is measured at 48 %. Ejection Fraction is visually estimated remedios 50 %. Global Longitudinal Strain is -12 %. GLS is abnormal. Normal right ventricular systolic pressure. Mild tricuspidregurgitation. Small pericardial effusion. Right atrial free wall invagination consistentwith increased pericardial pressure. Normal sinus rhythm. Electronically Signed By: Shekhar Garcia MD 01/06/2025 12:58:57 PM CDT Sue Smith NP CV ECHO PROCEDURES Final Result * DEVICE CHECK - REMOTE (12/14/2024 9:02 AM CDT) Anatomical Region Laterality Modality Other Narrative 01/04/2025 12:15 PM CDT [employer] LINQ11 Loop Recorder. Dx; Syncope, Palpitations. DOI 02/11/2022Tanner. [facility] remote f/u. Routine ILR remote. Normal device function. Battery function-good. Presenting rhythm: Sinus tachycardia Medications: No anticoagulation or cardiac meds Counters since last scheduled transmission on 11/01/24. No auto or patient recorded episodes noted. See scanned report. [facility] remote f/u 01/24/25. Nestor Romero RN Shekhar Garcia MD CV CARDIAC SERVICES PROCE DURES Final Result * DEVICE CHECK - REMOTE (11/10/2024 3:00 PM CDT) Anatomical Region Laterality Modality Other Narrative 12/03/2024 1:34 PM CDT [employer] LINQ11 Loop Recorder. Dx; Syncope, Palpitations. DOI 02/11/2022-Jose. [facility] remote f/u. Routine ILR remote. Normal device function. Battery function-good. Presenting rhythm: Sinus tachycardia Medications: No anticoagulation or cardiac meds Counters since last scheduled transmission on 09/20/24. No auto or patient recorded episodes noted. See scanned report. [facility] remote f/u 12/13/24. Nestor Romero RN Shekhar Garcia MD CV CARDIAC SERVICES PROCE DURES Final Result * Diagnostic Mammogram Bilateral W [...] Final Result * COLONOSCOPY (07/20/2020 9:05 AM NUTRITION CONSULTANT) Anatomical Region Laterality Modality Other Narrative Procedure Note Fausto Delgado MD - 07/20/2020 9:05 AM CST [facility] Patient Name: Annabella Garcia Procedure Date: 07/20/2020 9:05 AM Date of : 1975 Admit Type: Outpatient Age: 45 Gender: Female Attending MD: Fausto Delgado M.D. Room: [facility]COPY [facility] 3 Note Status: Finalized Procedure: [...] The scope was passed under direct vision.The [id number] endoscope was introduced through the anus [...] On: 07/20/2020 9:05 AM Recognized by the [employer] for promoting quality in endoscopy Fausto Delgado MD ENDOSCOPY PROCEDURES Final Re sult from Last 3 Months or Most Recently Relevant to Health Maintenance Insurance [employer] [place] [employer] MED[employer]ARE [place] [place] [employer] MEDICARE [facility] DIN [employer] [place] [employer] MED[employer]ARE [place] Advance Directives For more information, please contact: [phone] * Full Code (Latest Code Status on File) Date Activated Date Inactivated Comments 07/20/2020 8:24 AM 07/20/2020 2:42 PM Care Teams Company [employer] Relationship Specialty Start Date End Date Morena Sprague DO PCP - General Family Medicine 03/13/21 Omar Valenzuela PA [address] [place] [address] [place] [address] Physician Pipe Line Repairer Orthopedic Surgery 09/21/24
== END 2025-02-04 15:36 | disposition left against medical advice (07) ==
LOC: ANHED 15:10
PROVIDERS: Emergency Provider Student in an Organized Health Care Education/Training Program; PCP Family Medicine
DX: R56.9 Unspecified convulsions (principal)
CPT/HCPCS: 93005; 99199

== ENCOUNTER 2025-02-05 09:22 | Emergency (ER) | payer BC, MEDICARE, SELFPAY ==
--- OUTSIDE RECORDS SUMMARY | 2025-01-31 04:45 | XMS_ITS ---
Author Organization [facility] [employer] Address [address] [place] [address] Care Team Providers Care Engineer Byproduct Name Role Phone Morena Sprague DO Primary Care Provider UnavailAaron Luciano Unavailable [phone] REASON FOR VISIT Follow Up Medications Medication SIG (Take, Route, Frequency, Duration) Notes Start Date End Date Status sulfaSALAzine 500 MG Tablet Delayed Release Oral 09/24/2023 Active OptiChamber Cher SPACER (EA) MISCELLANEOUS 09/24/2023 Active Triamcinolone Acetonide 0.1% Cream External 09/24/2023 Active BUDESONIDE-FORMOTERO L HFA 80 MCG-4.5 MCG/ACTUATION AEROSOL INHALER *Reorder from [employer] for eRx and Interaction Alerts* 09/24/2023 Active Methocarbamol 500 MG Tablet Oral 09/24/2023 Active ZEPBOUND 2.5 MG/0.5 ML SUBCUTANEOUS PEN INJECTOR *Reorder from [employer] for eRx and Interaction Alerts* 09/24/2023 Active [...] Female Encounters Encounter Location Date Provider Diagnosis [facility] [address] [address] 01/31/2025 Aaron Pop Generalized anxiety disorder F41.1 [...] discontinuation Provider Name:Aaron wood, 03/07/2025 09:30:00 AM, [address], [facility] [address], [place], [address], History and Physical Notes * HPI (History [...] Notes * ANNABELLA GARCIADOB:[birth year] (49 yo F)Acc No.[id number]:01/31/2025 Patient: VON LAZCANOAH Provider: TIFFANI RAZO :1975 A ge:49 Y S ex:Female Date:01/31/2025 Address:[facility] [address] [facility] Pcp:Morena Sprague DO Check In:09:52 AM CSTCheck O ut:10: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 Subjective: * Chief Complaints: * F ollow [...] INJECTOR , Notes to Pharmacist: *Reorder from [employer] for eRx and Interaction Alerts*Depakote ER 500 MG Tablet Extended Release 24 Hour Oral Famotidine 40 MG Tablet Oral Methocarbamol 500 MG Tablet Oral BUDESONIDE- FORMOTEROL HFA 80 MCG-4.5 MCG/ACTUATION AEROSOL INHALER , Notes to Pharmacist: *Reorder from [employer] for eRx and Interaction Alerts*Triamcinolone Acetonide 0.1% [...] INJECTOR , Notes to Pharmacist: *[facility] for eRx and Interaction Alerts*Taking Depakote ER 500 MG Tablet Extended Release 24 Hour Oral Taking Famotidine 40 MG Tablet Oral Taking Methocarbamol 500 MG Tablet Oral Taking BUDESONIDE-FORMOTEROL HFA 80 MCG-4.5 MCG/ACTUATION AEROSOL INHALER , Notes to Pharmacist: *Reorder from [facility] for eRx and Interaction Alerts*Taking Triamcinolone Acetonide [...] abilify discontinuation) Billing Information: * Visit Code: [id number] OFFICE OUTPATIENT VISIT 25 MINUTES DETAILED HISTORY AND EXAM/MODERATE MEDICAL DECISION MAKING. Modifiers: 95 * Procedure Codes: * Electronic signature of TIFFANI Garcia on 02/05/2025 at 11:33 AM CDT Sign off status: Pending * Provider: TIFFANI RAZO Date: 0 01/31/2025 Generated for Vicky interiano/Hernan/Toyaitting on: 02/05/2025 11:33 AM CDT
--- OUTSIDE RECORDS SUMMARY | 2025-02-04 10:14 | XMS_ITS ---
Author Organization [facility] [employer] [facility] Address [address] [facility] [address] [address] Care Team Providers Care Sap Bw Consultant Name Role Phone PoonamMorena chatterjee DO Primary Care Provider Aaron Enrique Unavailable [phone] REASON FOR VISIT Anxiety Medications Medication SIG (Take, Route, Fr equency, Duration) Notes Start Date End Date Status LORazepam 1 MG Tablet 1 tablet Orally tw ice a day; Duration: 10 days 02/04/2025 Active Social History Sex Assigned At : Social History Observation Description Sex Assigned At Female Encounters Encounter Location Date Provider Diagnosis [facility] [place] [address] [facility] [address] [address] 02/04/2025 Aaron Pop Generalized anxiety disorder F41.1 Assessments Encounter Date Diagnosis (ICD Code) Assessment Notes Treatment Notes Treatment Clinical Notes Section Notes 02/04/2025 Generalized anxiety disorder (ICD-10 - F41.1) Plan Of Treatment Medication Medication Name Sig Start Date Stop Date Notes LORazepam 1 MG Tablet 1 tablet Orally tw ice a day; Duration: 10 days 02/04/2025 Next Appt Details Provider Name:Aaron wood, 03/07/2025 09:30:00 AM, [address], [facility] [address], [place], [address], Progress Notes * ANNABELLA GARCIADOB:[birth year] (49 yo F)Acc No.[id number]:02/04/2025 Patient: Sonny ANNABELLA GE :1975 A ge:49 Y S ex:Female Address:[facility] [address] [place], [address] * Refills Start LORazepam Tablet, 1 MG, Orally, 20 Tablet, 1 tablet, twice a day, 10 days, Refills=0 Subjective: * Chief Complaints: * A nxiety Assessment: * Assessment: 1. G eneralized anxiety disorder - F41.1 (Primary) Plan: * Treatment: * true * Date: Generated for Vicky interiano/Hernan/Cicismitting on: 0 02/05/2025 11:32 AM CDT
--- NOTE | ~2025-02-05 | CT_ITS ---
CTA CHEST CLINICAL HISTORY: chest pain . COMPARISON: X-rays 08/02/2024 CT chest 10/20/2024 TECHNIQUE: Helical CTA performed from thoracic inlet to upper abdomen IV contrast information not listed in PACS Coronal, sagittal reformats. Multiplanar MIPS CT images acquired with automatic exposure control for dose reduction DLP: 769 mGy-cm FINDINGS: Pulmonary arteries: No PE. Thoracic Aorta: No dissection or aneurysm. Heart/pericardium: Cardiomegaly. Coronary artery calcifications. RV/LV ratio: Normal. Lungs/Pleura: Chronic circumferential pleural thickening right lung, with scattered bibasilar predominant scarring. Tracheobronchial tree: Patent. Nodes: No enlarged nodes. Bones: No acute bony abnormality. Soft tissues: Retrosternal extension right lobe thyroid. Visualized upper abdomen: Prior gastric surgery. Hepatomegaly, with steatosis. Cirrhosis not excluded. IMPRESSION: 1. No PE or other acute cardiopulmonary findings. 2. Chronic pleural thickening right lung since November 2023. Recommend continued surveillance and/or more definitive characterization. Reviewed, dictated and finalized at location R.
--- NOTE | ~2025-02-05 | CT_ITS ---
CT HEAD NON-CONTRAST Clinical History: possible seizure Comparison: CT brain 07/12/2024 Technique: Unenhanced axial images skull base to vertex Coronal, sagittal reformats CT images acquired with automatic exposure control for dose reduction DLP: 605 mGy-cm Findings: Sulci, ventricles: Unremarkable. No intracerebral hemorrhage. No evidence acute territorial infarct. No mass effect, midline shift. Bony calvarium intact. Visualized paranasal sinuses: Clear. Mastoid air cells: Clear. IMPRESSION: 1. No acute intracranial findings. Reviewed, dictated and finalized at location R.
--- NOTE | 2025-02-05 09:25 | ECG_ITS ---
Test Date: 2025-02-05 09:29:08 Measurements Intervals [place] Rate: 120 P: 45 MN: 156 QRS: -20 QRSD: 93 T: 42 QT: 319 QTc: 452 Interpretive Statements SINUS TACHYCARDIA LOW QRS VOLTAGE IN PRECORDIAL LEADS Electronically Signed On 02-06-2025 20:39:43 CDT by Danny Cravne D.O
[2025-02-05 09:36] VITALS: BP 128/88; PULSE 127; RESP 16; TEMP 37; O2SAT 98
[2025-02-05 09:46] LABS: Hematocrit 37.1 % (37.0-47.0); Hemoglobin 11.4 g/dL (12.0-15.0); Immature Granulocyte Percent A 0.2 % (0-0.5); Lymphocytes Absolute Auto 1.55 K/mm3 (0.9-3.2); Mean Corpuscular HGB Conc 30.7 g/dl (32-36); Mean Corpuscular Hemoglobin 27.4 pg (26-34); Mean Corpuscular Volume 89.2 fl (80-100); Nucleated Red Blood Cells Absolute Auto 0.000 K/mm3 (0.0-0.012); Nucleated Red Blood Cells Perc 0.0 % (0.0-0.2); Platelet Count Result 324 k/mm3 (150-375); Red Blood Count 4.16 M/mm3 (4.2-5.4); White Blood Count 5.5 K/mm3 (4.5-10.0)
[2025-02-05 10:09] LABS: Alanine Aminotransferase 18 U/L (6-35); Albumin Level 4.1 g/dL (3.5-5.1); Alkaline Phosphatase 68 U/L (38-126); Anion Gap 6 mmol/L (4-12); Aspartate Amino Transferase 30 U/L (14-36); Bilirubin,Total 0.5 mg/dL (0.2-1.3); Blood Urea Nitrogen 13 mg/dL (7-17); Calcium 9.0 mg/dL (8.4-10.2); Carbon Dioxide 27 mmol/L (22-30); Chloride 104 mmol/L (98-107); Estimated Glomerular Filt Rate > 60; Glucose 81 mg/dL (65-110); Potassium 4.0 mmol/L (3.4-5.0); Sodium 137 mmol/L (137-145); Total Protein 7.8 g/dL (6.3-8.2)
--- NOTE | 2025-02-05 11:29 | PC.NURSE ---
Patient states she has been having seizures daily all week. patient denies seizure history. patient states she had 4 episodes today.
--- OUTSIDE RECORDS SUMMARY | 2025-02-05 11:32 | XMS_ITS | Clinical Summary ---
Author Organization [facility] Address [address] [place], [place] [id number] Care Team Providers Care Manager Inventory Name Role Phone Morena Sprague DO Primary Care Provider [phone] Social History Tobacco Use Types Packs/Day Years Used Date Smoking Tobacco: Never Assessed Comments Unknown Sex and Gender Information Value Date Recorded Sex Assigned at Not on file Legal Sex Female 8:35 AM TRAVEL WRITER Gender Identity Not on file Sexual Orientation [...] Screening 2017 COVID-19 Vaccine (2023-2 5 season) 2025 Meningococcal B Vaccine Aged Out No l [...] patient's age to complete this topic Insurance [facility] Care Teams Manager Inventory Relationship Specialty Start Date End Date Morena Sprague DO [address] [place] [address] PCP - General FAMILY PRACTICE 06/03/22
--- OUTSIDE RECORDS SUMMARY | 2025-02-05 11:32 | XMS_ITS | Encounter Summary ---
Author Organization [facility] Healthcare Address [address] [place] [address] Care Team Providers Care Finance Director Name Role Phone Morena Sprague DO Primary Care Provider [phone] Omar Valenzuela Unavailable [phone] Encounter Details Date Type Department Care Team (Late st Contact Info) Description 07/12/2024 [place] Only [facility] [place] [address] [place] [id number] Scanning, Provider Social History Tobacco Use Types [...] on file Legal Sex Female 2:20 AM FRAUD PREVENTION ANALYST Gender Identity Female 08/21/2020 9:29 PM CDT Sexual Orientation Straight 08/21/2020 9: 29 PM CDT 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
--- OUTSIDE RECORDS SUMMARY | 2025-02-05 11:33 | XMS_ITS | Clinical Summary ---
Author Organization [facility] [employer] Address [address] [place] [address] Care Team Providers Care Balancer Scale Name Role Phone Geovanny Mayberry MD Primary Care Provider Geovanny Mayberry MD Unavailable Source Comments [facility],non-owned Affiliates and Associated Physician Practices is amultiple site organization consisting of ambulatory clinics and hospital sitesin [place], [place], [place] and [place]. This disclosure is being madepursuant to the Care Everywhere program and may not contain all information available regarding this patient. Last updated 18.[facility] Allergies Active Allergy Reactions Criticality Noted [...] with food Active vitamin D, ergocalciferol, (DRISDOL) 96233 UNITS capsule Take 50,000 Units by mouth every 30 days Active fluticasone propionate (FLONASE) 50 MCG/ACT nasal sprayIndication s:Acute maxillary sinusitis, recurrence not specified [place] 2 sprays into each nostril once daily [...] Comments Blood Pressure 118/80 03/18/2017 4:08 PM SAFETY AND SECURITY MANAGER Pulse 86 03/18/2017 4:08 PM SAFETY AND SECURITY MANAGER Temperature 37.1 C (98.7 F) 03/18/2017 4:08 PM SAFETY AND SECURITY MANAGER Respiratory Rate 16 03/18/2017 4:08 PM SAFETY AND SECURITY MANAGER Oxygen Saturation 98% 03/18/2017 4:08 PM SAFETY AND SECURITY MANAGER Inhaled Oxygen Concentration - - Weight 120.2 kg (265 lb) 03/18/2017 4:08 PM SAFETY AND SECURITY MANAGER Height 175.3 cm (5' 9) 03/18/2017 4:08 PM SAFETY AND SECURITY MANAGER Body Mass Index 39.13 03/18/2017 4:08 PM SAFETY AND SECURITY MANAGER Plan of Treatment Health Maintenance Due Date [...] ANTHEM ANTHEM AETNA MEDICARE ADV Care Teams Balancer Scale Relationship Specialty Start Date End Date Geovanny Mayberry MD [address] [place] [address] PCP - General 09/30/18 Geovanny Mayberry MD [address] [place] [id number] Family Medicine 09/30/18
--- OUTSIDE RECORDS SUMMARY | 2025-02-05 11:33 | XMS_ITS | Data Portability ---
Author Organization [place] [facility], Main Office Address [address] [place] [address] Care Team Providers Care Parking Lot Attendant And Cashier Name Role Phone ARON BELLA Primary Care Provider [phone] ARON BELLA Referring Provider [phone] Assessment Encounter Date Assessment Date Assessment LastModified [...] more than half the time spent in [id number] care for Not available 12/18/2022 14:50:54 Plan of Treatment Reminders Order Date Submit Date Provider Last Modified By Organization Details Last Modified Time Details Appointments None record ed. Lab None record ed. Referral None record ed. Procedures None record ed. Surgeries None record ed. Imaging XR, knee 023 12/17/19 23 [email or web address] [facility] [place], [address], [place], [address], 3 17:06:43 Medication Orders None record ed. Patient TargetsNo targets recorded. Patient InstructionsNo instructions recorded. Reason for Referral None Reported. Results Created Date Observation Date Name Description Value Unit Range Abnormal Flag Note LastModifiedBy Organization Detail LastModifiedTime 12/17/19 23 XR, knee No observ ation record ed. [facility] [place] [address], [place], [address], 12/18/2022 14:44:46 Result Notes None recorded. Problems Name Problem SNOMED Code Status Onset Date Resolution Date Notes Provider Name and Address Organization Details Recorded Time History of left total knee replacemen t 5490112161924 105 Active 2019 Not Available [facility] 3 13:52:22 History of total knee arthroplas ty 3802126737256 Active 2020 Not Available [facility] 3 13:52:22 Pain of bilateral knee joints 1823668196194 04 Active 2022 SANIA Haro, [place] [employer] [facility] 3 15:55:54 Problem Notes None recorded. Medical Equipment None Reported. Allergies Allergen ID Allergen Name Allergen Category Reaction Reaction Severity Criticality Documentation Date Start Date Code Code System Note Provider Name and Address Organization Details Recorded Time 69198 Product containin g penicilli n (product) medicatio n Not available Not available Not available 07/10/2022 57797 8001 SNOMED Not Available [facility] 3 13:53:24 80530 ibuprofen medicatio n Not available Not available Not available 07/10/2022 5640 RxNorm Not Available [facility] 3 13:53:24 Medications Name Sig Start Date [...] administ ered by the provider 12/16 completed [facility]: 0003-049 08-29 Not Available Not Available Not Available colesevel [...] the office by the doctor 12/16 completed NDC: 72722728 001 Not Available Not Available Not Available lidocaine (PF) 10 mg/mL (1 %) injection solution In office injectio n administ ered by the provider 12/16 completed NDC: 0409-427 10-26 Not Available Not Available Not Available fluocinol [...] Updated DateTime 12/16/2022 172.72 cm 48.2 kg/m2 531402.78 g Shelbi SANIA Watson [place] - [facility] 12/16/2022 16:13:26 Social History None recorded. Functional Status None recorded. Mental Status None recorded. Family History Nothing Reported. Medical History No medical history recorded. Gynecological HistoryNo gynecological history recorded. Obstetrics History GPAL:G 0 P 0 0 0 0 Past Encounters Encounter ID Performer Location Encounter Start Date Encounter Closed Date Diagnosis/Indication Diagnosis SNOMED-CT Code Diagnosis ICD10 Code Diagnosis IMO Codes Diagnosis Note [id number] Jadon Booker MD [facility] [place] [address] [facility] [address] [place] [address] 12/16/2022 15:31:22 12/18/2022 17:06:42 Pain of bilateral knee joints 0251051406 45518 M25.561 M25.562 Health Concerns Section Related Observation LastModified by Organization Detai ls LastModified Time None Recorded Concern Status LastModified by Organization Details LastModified Time None Recorded Advance Directives Directive None Recorded Payers Insurance Date Sequence Insurance Name Policy Number Policy Kaiser Covered Member ID Kaiser Member ID Guarantor Name 12/23/2022 1 [place] [id number] Valerio Lieberman [id number] Corrie Lieberman 12/23/2022 2 AETNA - PRIME (MEDICARE REPLACEMENT /ADVANTAGE - HMO) [id number] Corrie Lieberman [id number] Corrie Lieberman Notes Date Note Type Note Provider Name [...] all likelihood and he referred her to [facility] and she saw Dr. Clifton who aspirated [...] infusion every 8 weeks. Jadon Booker MD [address] [place] [address], [facility] [address], [place], [address], [facility] 12/24/2022 18:51:51 OBGyn Episode No OBEpisode recorded.
--- OUTSIDE RECORDS SUMMARY | 2025-02-05 11:33 | XMS_ITS ---
Author Organization [facility] Address [address] [place] [address] Phone Care Team Providers Care Weight Checker Name Role Phone Unavailable Unavailable Unavailable Plan of Treatment No Plan of Treatment Recorded Assessments Includes: Assessments for all patient encounters No Assessments Recorded Medical Equipment - Implanted Devices Includes: Current and historical Devices No Medical Equipment Recorded Medications Administered Includes: Administered Medications in patient's chart No Administered Medications Recorded Results Includes: Results from 02/06/2024 through 02/05/2025 No Results Recorded For Specified Dates History of Present Illness History of Present Illness not supported for this document type No History of Present Illness Recorded Social History No Social History Recorded - Smoking Status Unknown Medical History Includes: Medical History in patient's chart No Medical History Recorded Family History Includes: Family History in patient's chart No Family History Recorded Review of Systems Review of Systems not supported for this document type No Review of Systems Recorded Mental Status No Mental Status Recorded Functional Status No Functional Status Recorded Physical Exam Physical Exam not supported for this document type No Physical Exam Recorded Clinical Notes Includes: Signed Clinical Notes starting from 05/31/2022 No Clinical Notes Recorded
--- OUTSIDE RECORDS SUMMARY | 2025-02-05 11:33 | XMS_ITS | Clinical Summary ---
Author Organization [facility] Radha Mcbride Address [address] [place] [address] Care Team Providers Care Gluing Crew Leader Name Role Phone Morena Sprague Primary Care Provider [phone] Allergies Active Allergy Reactions Criticality Noted Date [...] Description 2025 8:30 AM CDT Office Visit [facility] - Ger [address] [place] [address] Jeffy Chang MD [address] [facility] [address] [place] [address] Health Maintenance Due Date Last [...] BLUE ACCESS/TRUE BLUE PPO AETNA [facility] Address: [facility] [id number] [place] [address] Care Teams Gluing Crew Leader Relationship Specialty Start Date End Date Morena Sprague DO [address] [facility] [address] [place] [address] PCP - General Family Practice 10/22/23
--- OUTSIDE RECORDS SUMMARY | 2025-02-05 11:33 | XMS_ITS | Encounter Summary ---
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
--- OUTSIDE RECORDS SUMMARY | 2025-02-05 11:33 | XMS_ITS | Encounter Summary ---
Author Organization [facility] Address [address] [place] [address] Phone Care Team Providers Care Manager Culinary Name Role Phone Geovanny Mayberry Primary Care Provider [phone] Zina Davis MD Primary Care Provider Emelina Singh DPT Unavailable [phone] Morena Sprague DO Primary Care Provider [phone] Omar Valenzuela Unavailable [phone] Encounter Details Date Type Department Care Team (Latest Contact Info) Description 10/05/2014 Orders Only [facility] WGT Scanning, Provider Social History Tobacco Use Types Packs/Day Years Used Date Smoking Tobacco: Never Assessed Comments Unknown Sex and Gender Information Value Date Recorded Sex Assigned at Not on file Legal Sex Female 2:20 AM CASE FINISHING MACHINE ADJUSTER Gender Identity Female 08/21/2020 9:29 PM CDT [...] filedocumented in this encounter Care Teams Manager Culinary Relationship Specialty Start Date End Date Geovanny MayberryRadu [address] [place] [address] PCP - General 08/04/17 03/04/19 Zina Davis MD [address] [place] [address] PCP - General Family Practice 03/05/19 03/12/21 Morena Sprague DO [address] [place] [address] PCP - General Family Medicine 03/13/21 Emelina Singh DPT [address] [place] [address] Physical Therapist Physical Therapy 06/23/19 03/16/20 Omar Valenzuela PA [address] [place] [address] [place] [address] Physician Automobile Brake Bonder Orthopedic Surgery 09/21/24 documented as of this encounter
--- OUTSIDE RECORDS SUMMARY | 2025-02-05 11:33 | XMS_ITS | Clinical Summary ---
Author Organization [facility] Address [address] [place] [address] Phone Care Team Providers Care Glove Parts Cutter Name Role Phone PoonamsusiMorena fernandez Primary Care Provider [phone] Medications DULoxetine (CYMBALTA) [address] [...] patient's age to complete this topic Insurance [facility] MEDICARE C AETNA Care Teams Glove Parts Cutter Relationship Specialty Start Date End Date Morena Sprague DO [address] [place] [address] PCP - General Family Medicine 10/30/22
--- OUTSIDE RECORDS SUMMARY | 2025-02-05 11:33 | XMS_ITS ---
Care Plan - [facility] Created on: February 05, 2025 ANNABELLA GARCIA : 1975 Sex: Female Author Organization [facility] Address [address] [place] [address] Phone Care Team Providers Care Railcar Brake Operator Name Role Phone Unavailable Unavailable Unavailable
--- OUTSIDE RECORDS SUMMARY | 2025-02-05 11:33 | XMS_ITS | Clinical Summary ---
Author Organization [facility] Address [address] [place] [address] Care Team Providers Care Administrative Office Clerk Name Role Phone Morena Sprague DO Primary Care Provider [phone] Omar Valenzuela PA Unavailable [phone] Allergies Active Allergy Reactions Criticality Noted Date [...] ML) SUBCUTANEOUSLY WEEKLY 07/07/19 25 Active ixekizumab (CloudPay.nettz Autoinjector, 2 Pack,) auto-injector Inject 1 mL [...] implantable loop record er 02/18/2022 Overview (02/18/2022): PocketMobile LINQ11 Loop Recorder. Dx; Syncope, Palpitations. DOI [...] w/r/t gut microbiome. Referred to ADA and [employer] websites for additional information on topics [...] not improve, I recommend her seeing a pc network technician or CRS. Anxiety and depression 08/04/2017 Panic [...] normal. Assessment & Plan (06/19/2020 3:56 PM MAGICIAN HELPER): She presents with extensive prior workup for [...] reflex an refer to rheumatology here at [facility] for second opinion on her joint issues. We will see her back in clinic after her endoscopies for further evaluation and to make decisions about potential treatments. Encounters Date Type Department Care Team Description 01/25/2025 10:15 AM CDT Office Visit [facility] Cardiology [address] [place] [address] [place] [phone] Enrrique Ga MD Pericardial effusion (Primary Dx) 01/24/2025 7:45 AM CDT Ancillary Procedure [facility] Cardiology [address] [place] [address] [place] [address] Syncope and collapse; Status post placement of implantable loop recorder 01/07/2025 Telephone [place] [address] [place] [address] Sue Smith NP 01/07/2025 Results Follow-Up [place] [address] [place] [phone] Sue Smith NP Transthoracic Echo (TTE) Complete W Doppler/CF 01/06/2025 11:15 AM CDT Ancillary Procedure [place] [address] [place] [address] [phone] of the chest 01/06/2025 Telephone [place] [address] [place] [phone] Sue Smith NP 12/13/2024 7:30 AM CDT Ancillary Procedure [facility] Cardiology [address] [place] [address] [place] [phone] Syncope and collapse; Status post placement [...] - 05/11/2015 BLADDER SURGERY 05/12/2018 - 05/11/2019 [place] ARTHRP KNE CONDYLE&PLATU MEDIAL&LAT COMPARTMENTS 03/15/2020 Left [place] - Olga KNEE ARTHROSCOPY ABDOMINAL SURGERY 1994 [...] on file Legal Sex Female 2:20 AM MAGICIAN HELPER Gender Identity Female 08/21/2020 9:29 PM CDT Sexual Orientation Straight 08/21/2020 9: 29 PM CDT 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 Not on file Not on file [...] breast, unspecified laterality COLONOSCOPY 07/20/2020 9:05 AM MAGICIAN HELPER from Last 3 Months or Most Recently Relevant to Health Maintenance Results * TRANSTHORACIC ECHO (TTE) COMPLETE W DOPPLER/CF WO CONTRAST (01/06/2025 12:27 PM CDT) Estimated EF 50 % CONS SCIMAGE EF Mod BP 48 % CONS SCIMAGE Anatomical Region Laterality Modality Ultrasound 01/06/2025 11:1 4 AM CDT Narrative 01/06/2025 12:59 PM CDT [facility] Cardiology [address], [place] [address] [address] [facility] [address], [place] [address] P:[phone] P:[phone] Echocardiographic Report Patient Name: ANNABELLA GARCIA C : 1975 Study Date: 01/06/2025 11:14:13 AM Sex: F Principal Associate: Hattie Smith)(CT), [facility] Location: [place] Ref Provider: SUE SMITH Height(Cm): 178 BSA: [...] FINDINGS: Interpretation Site: Exam was interpreted at [facility]. Left Ventricle: Normal left ventricular size. [...] Procedure Note Shekhar Garcia MD - 01/06/2025 [facility] Cardiology [address] [facility] [address] [address] [address] [facility] [address], [place], [place] [address] P:[phone] P:[phone] Echocardiographic Report Patient Name: ANNABELLA GARCIA C : 1975 Study Date: 01/06/2025 11:14:13 AM Sex: F Principal Associate: Hattie Gomez (Hemal)(CT), [facility] Location: [facility] Provider: SUE SMITH Height(Cm): 178 BSA: 2.11 [...] FINDINGS: Interpretation Site: Exam was interpreted at [facility]. Left Ventricle: Normal left ventricular size. [...] Final Result * COLONOSCOPY (07/20/2020 9:05 AM MAGICIAN HELPER) Anatomical Region Laterality Modality Other Narrative Procedure Note Fausto Delgado MD - 07/20/2020 9:05 AM CST [facility] Patient Name: Annabella Garcia Procedure Date: 07/20/2020 9:05 AM Date of : 1975 Admit Type: Outpatient Age: 45 Gender: Female Attending MD: Fausto Delgado M.D. Room: [facility] ENDOSCOPY ROOM 3 Note Status: Finalized Procedure: [...] The scope was passed under direct vision.The [id number] endoscope was introduced through the anus [...] On: 07/20/2020 9:05 AM Recognized by the [place] [employer] for promoting quality in endoscopy Fausto Delgado MD ENDOSCOPY PROCEDURES Final Re sult from Last 3 Months or Most Recently Relevant to Health Maintenance [place] [facility] Method [place] Advance Directives For more information, please contact: [phone] * Full Code (Latest Code Status on File) Date Activated Date Inactivated Comments 07/20/2020 8:24 AM 07/20/2020 2:42 PM Care Teams Administrative Office Clerk Relationship Specialty Start Date End Date Morena Sprague DO PCP - General Family Medicine 03/13/21 Omar Valenzuela PA [address] [place] [address] [place] [address] Physician Vocal Music Instructor Orthopedic Surgery 09/21/24
--- OUTSIDE RECORDS SUMMARY | 2025-02-05 11:33 | XMS_ITS | Encounter Summary ---
Author Organization [facility] Address [address] [place] [address] Care Team Providers Care Television Cable Installer Name Role Phone Morena Sprague DO Primary Care Provider [phone] Omar Valenzuela PA Unavailable [phone] Encounter Details Date Type Department Care Team (Late st Contact Info) Description 01/07/2025 Results Follow-Up [facility] Cardiology [address] [place] [address] Sue Guerrier NP [address] [place] [address] Transthoracic Echo (TTE) Complete W [...] on file Legal Sex Female 2:20 AM EXTRACTIONS TECHNICIAN Gender Identity Female 08/21/2020 9:29 PM CDT Sexual Orientation Straight 08/21/2020 9: 29 PM CDT 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 [address], [place] [address] Physician Media Analytics Manager Orthopedic Surgery 09/21/24 documented as of this encounter
--- OUTSIDE RECORDS SUMMARY | 2025-02-05 11:33 | XMS_ITS | Patient Health Record ---
Author Organization [facility] As [employer] [facility] Address [address] [place] [address] Care Team Providers Care Ammonia Nitrate Operator Name Role Phone Morena Sprague DO Primary Care Provider UnavailAaron Luciano Unavailable [phone] Allergies Allergen (clinical drug ingredient) Drug/Non Drug Allergy documented on EMR Reaction Allergy Type Onset Date Status Substance with penicillin structure and antibacterial mechanism of action (substance) Penicillins Unknown Drug Allergy 07/14/2023 Active Reason For Referral No Information Medications Medication SIG (Take, Route, Frequency, Duration) Notes Start Date End Date Status LORazepam 1 MG Tablet 1 tablet Orally twice a day; Duration: 10 days 02/04/2025 Active BUDESONIDE-FORMOTERO L HFA 80 MCG-4.5 MCG/ACTUATION AEROSOL INHALER *Reorder from [employer] for eRx and Interaction Alerts* 09/24/2023 Active [...] MG/0.5 ML SUBCUTANEOUS PEN INJECTOR *Reorder from [employer] for eRx and Interaction Alerts* 09/24/2023 Active [...] 02/09/2017 Administered MMR Unknown 03/06/2016 Administered Novel [id number], preservative free Unknown 02/10/2020 Administered Pfizer Biontech [...] Risk Notes Problem Mild recurrent major depression (97065068) Major depressive disorder, recurrent, mild (F33.0) Active confirmed Problem Generalized anxiety disorder (50529189) Generalized anxiety disorder (F41.1) Active confirmed Problem Restless legs syndrome (13818009) Restless legs syndrome (G25.81) Active confirmed Problem Insomnia (979035182) Other insomnia (G47.09) Active confirmed Vital Signs Height-cm 175.26 cm 06/16/2024 Height 69.00 in 06/16/2024 Encounters Encounter Location Date Provider Diagnosis [employer] [facility] [address] [facility] [address] [place] [address] 01/31/2025 Aaron Pop Generalized anxiety disorder F41.1 ; Major depressive disorder, recurrent, mild F33.0 ; Other insomnia G47.09 and Restless legs syndrome G25.81 [employer] [facility] [employer] [facility] [address] [place] [address] 06/16/2024 Aaron Pop Generalized anxiety disorder F41.1 ; Major depressive disorder, recurrent, mild F33.0 ; Other insomnia G47.09 ; Restless legs syndrome G25.81 and Major depressive disorder, recurrent severe without psychotic features 296.33 [employer] [facility] [address] [place] [address] 10/19/2024 Aaron Pop Generalized anxiety disorder F41.1 ; Major depressive disorder, recurrent, mild F33.0 ; Other insomnia G47.09 ; Restless legs syndrome G25.81 and Major depressive disorder, recurrent severe without psychotic features 296.33 [employer] [facility] [address] [place] [address] 11/23/2024 Aaron Pop Generalized anxiety disorder F41.1 ; Major depressive disorder, recurrent, mild F33.0 ; Other insomnia G47.09 and Restless legs syndrome G25.81 [facility] [address] [place] [address] 12/29/2024 Aaron Pop Generalized anxiety disorder F41.1 ; Major depressive disorder, recurrent, mild F33.0 ; Other insomnia G47.09 and Restless legs syndrome G25.81 [facility] [address] [facility] [address] [place] [address] 03/19/2024 Aaron Pop Major depressive disorder, recurrent, mild F33.0 [facility] [address] [facility] [address] [place] [address] 03/19/2024 Aaron Salazara [place] [id number] [facility] [address] [place] [address] 02/04/2025 Aaron Pop Generalized anxiety disorder F41.1 Assessments Encounter Date Diagnosis (ICD Code) Assessment Notes Treatment Notes Treatment Clinical Notes Section Notes 02/04/2025 Generalized anxiety disorder (ICD-10 - F41.1) 12/29/2024 Generalized anxiety disorder (ICD-10 - F41.1) [...] F33.0) Cymbalta 60mg bid, abilify 10mg daily 01/31/2025 Major depressive disorder, recurrent, mild (ICD-10 - F33.0) 12/29/2024 Major depressive disorder, recurrent, mild (ICD-10 - F33.0) 12/29/2024 Other insomnia (ICD-10 - G47.09) Doxepin 10mg 01/31/2025 Other insomnia (ICD-10 - G47.09) Doxepin 10mg hs 06/16/2024 Other insomnia (ICD-10 - G47.09) Doxepin 10mg 11/23/2024 Other insomnia (ICD-10 - G47.09) Doxepin [...] 90 days. - Send prescriptions to [facility] pharmacy. Follow-up: - Schedule a follow-up appointment in 4 months. - Patient will schedule the appointment through the [employer] maura. - Encourage the patient to reach [...] is currently under the care of a painting and coating worker and is taking Tylenol 4 for pain control. Additionally, steps are being taken to obtain a medical marijuana card for potential pain management. Plan: - Continue current pain management regimen: - Tylenol 4 - gabapentin - duloxetine - Follow up with painting and coating worker as scheduled - Proceed with obtaining medical [...] made to correct them. 12/29/2024 Other Annabella Jonesmark, female patient with history of knee replacement, [...] Details Provider Name:Aaron wood, 03/07/2025 09:30:00 AM, [address], [facility] [address], [place], [address], Insurance Providers Payer Name Payer Address Payer Phone Subscriber Number Group Number Insured Name Patient Relationship to Insured Coverage Start Date Coverage End Date [employer] [employer] [address] [place] [address] [id number] ANNABELLA MUKHERJEE Spouse - patient is the spouse of the insured [employer] [address] [place] [address] [id number] ANNABELLA MUKHERJEE Self - patient is [...] and orders by Dr. Shekhar Garcia at [facility] and through telephone consultations. The patient also had an office visit and telephone check-up with SIOMARA Nelson at [facility], for iron deficiency anemia, thrombocytosis, and B12 deficiency. External device data was also collected multiple times by Provider Abstract at [facility]. The patient's conditions have been managed through a combination of in-person visits, telephone consultations, and remote monitoring. Imported from [employer]: On 12/16/2022, the patient was seen by [...] Surgical History Surgery Date(Month/Year) Removal of gallbladder (97872) 5 Endometrial ablation (762138287) 009 Endometrial ablation (55020) 05/12/2014 Hysterectomy (61327) 10/14/2018 Total knee replacement (052548538) left 03/16/2020 Breast surgery (21730) 04/20/2019
[2025-02-05 11:35] VITALS: BP 127/80; PULSE 116; RESP 16; O2SAT 99
--- NOTE | 2025-02-05 11:35 | PC.NURSE ---
Seizure pads placed on patient's bed for safety
[2025-02-05 11:42] VITALS: BP 115/83; PULSE 85
[2025-02-05 11:43] VITALS: BP 116/87; PULSE 103
[2025-02-05 11:44] VITALS: BP 107/75; PULSE 99
[2025-02-05 11:58] LABS: Magnesium 1.8 mg/dL (1.6-2.3)
[2025-02-05 12:04] LABS: NT Pro B Type Natriuretic Pept 38 pg/mL (19.9-100); Troponin I < 0.012 ng/mL (0.000-0.034)
[2025-02-05] MEDS: LACTATED RINGERS 1,000 ML 999 ML IV CONT (12:07)
[2025-02-05 12:18] LABS: INR 0.9; Prothrombin Time 12.1 Seconds (11.1-14.7)
[2025-02-05 12:18] LABS: Add Urine Microscopic? YES; Appearance Urine Clear (Clear); Glucose Urine UA Negative (Negative); Leukocyte Esterase Ur Negative LEU/UL (Negative); Nitrate Urine Negative (Negative); Specific Grav Ur 1.033 (1.001-1.035)
[2025-02-05 12:19] LABS: Partial Thromboplastin Time 29.6 Seconds (22.3-36.8)
[2025-02-05 12:36] LABS: Cannabinoid Screen Urine Positive (Negative)
--- NOTE | 2025-02-05 12:41 | ED.GENADULT ---
HPI - General Adult General Chief complaint: Seizure Stated complaint: seizures Time Seen by Provider: 02/05/25 11:23 Source: patient, RN notes reviewed and old records reviewed Mode of arrival: ambulatory Limitations: no limitations History of Present Illness HPI narrative: THis is a 49 year old female who presents for evaluation of possible seizure. Patient states that she has been under more stress recently. She reports having multiple episodes over the past 1 week in when she will go unresponsive. Her mother is at bedside and she states patient was sitting and she closed her eyes for 30 seconds and then she came to. She denies any shaking or convulsing. She states she did not fall. Patient states her witnessed the same thing and she reports having for episodes today. She also states she has been having constant chest pain for several weeks. She reports constant mid chest pain that she describes as heaviness and sharp. She reports she has been evaluated and reported to have fluid around her lungs and heart. She states she is unable to take steroids or ibuprofen. Related Data Home Medications ?Medication ?Instructions ?Recorded ?Confirmed ?Last Taken ?Type cholecalciferol (vitamin D3) 125 125 mcg PO DAILY 02/08/22 01/11/25 12/24/24 History mcg (5,000 unit) tablet (Vitamin D3) ropinirole 1 mg tablet 1 mg PO BID RLS 11/24/22 01/11/25 12/26/24 History docusate sodium 50 mg capsule 50 mg PO TID 05/15/23 01/11/25 01/04/24 08:00 History (Stool Softener) doxepin 10 mg capsule 10 mg PO QHS 08/07/23 01/11/25 12/26/24 History leflunomide 20 mg tablet 20 mg PO DAILY 08/02/24 01/11/25 Unknown History clobetasol 0.05 % topical cream 1 applic topical DAILY 08/11/24 01/11/25 Unknown History tapinarof 1 % topical cream (Vtama) 1 applic topical DAILY 08/11/24 01/11/25 Unknown History calcium citrate 600 mg PO BID 08/17/24 01/11/25 12/24/24 History sulfasalazine 500 mg 500 mg PO TID 08/17/24 01/11/25 Unknown History tablet,delayed release ixekizumab 80 mg/mL subcutaneous 80 mg subcut ONCE 08/19/24 01/11/25 Unknown History auto-injector (Taltz Autoinjector) cyclobenzaprine 10 mg tablet 10 mg PO TID 12/07/24 01/11/25 Unknown History aripiprazole 2 mg tablet mg PO 01/07/25 01/11/25 Unknown History divalproex 500 mg tablet,extended mg PO 01/07/25 01/11/25 Unknown History release 24 hr Allergies Allergy/AdvReac Type Severity Reaction Status Date / Time amoxicillin Allergy Severe Hives Verified 02/05/25 11:36 Penicillins Allergy Severe Hives Verified 02/05/25 11:36 adhesive Allergy Intermediate BLISTERS/RA Verified 02/05/25 11:36 SH latex Allergy Intermediate Rash Verified 02/05/25 11:36 clindamycin Allergy Mild Swelling Verified 02/05/25 11:36 zolpidem (From Ambien) AdvReac Intermediate sleep Verified 02/05/25 11:36 walking azithromycin AdvReac Mild Nausea and Verified 02/05/25 11:36 Vomiting ibuprofen AdvReac Mild Heartburn Verified 02/05/25 11:36 [facility] Past Medical History Medical History History of fainting Inflammatory bowel disease Depression with anxiety Irritable bowel syndrome [place] esophagus Acid reflux Psoriatic arthritis (~2019) Restless leg syndrome Insomnia Enteropathic arthritis Anxiety Vitamin D deficiency Anemia Depression Arthritis Fibromyalgia (~2008) Fibroids Endometriosis Hiatal hernia Crohn's proctitis She notes it has been labelled on the Crohn's umbrella, but denies actually having Crohn's Interstitial cystitis Surgical History Surgical History History of arthroplasty of right knee (05/26/23) History of loop recorder (02/2022) For recurrent syncope/near-syncope. History of thyroid cyst (1993) History of partial hysterectomy History of endometrial ablation History of knee replacement procedure of right knee 05/26/23 History of wisdom tooth extraction History of bladder surgery History of left knee replacement (02/2020) Per Dr. Espinoza History of breast surgery (2018) Incision and drainage of right breast abscess. History of parotid gland excision (2010) Benign tumor. History of cholecystectomy (2004) History of dilation and curettage 2008 - 2009 multiple History of repair of rectocele (2019) History of gastric bypass (2015) Family History Family History Father Hypertension Family history of elevated blood lipids Family history of arthritis Mother Hypertension Family history of elevated blood lipids Family history of osteoporosis Family history of malignant neoplasm of breast Grandparent Family history of osteoporosis Hypertension Family history of Alzheimer's disease Family history of emphysema Family history of malignant neoplasm of ovary Sibling Hypertension Family history of arthritis Other Alcoholism Asthma Social History Social History Social History: Surrogate medical decision maker: Valerio Lieberman, spouse. Code status: Full code. Smoking packs per day: 1 Smoking cigarettes per day: 20.0 Years smoked: 5 Smoking pack-years: 5.00 Smoking status: Former smoker Second hand tobacco smoke exposure: No Smoking end date: 05/12/00 Additional smoking assessment comments: patient smokes marijuana most days for pain control Alcohol intake: never Substance use: former Substance use type: marijuana Other substance usage details: GUMMIES @ HX Last use: 01/04/24 Lack of Transportation: No Lack of Food: Never True Current Housing: I Have Housing Concerned About Future Housing: No Difficulty Paying Gas/Electric Bills: No Difficulty Paying for Meds: No Currently Unemployed: No Education: High School Diploma/GED Difficulty w/ Childcare or Family Care: No Living arrangements: with family Additional living arrangements comments: Lives with spouse and children. 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 Gender identity (if verbalized by the patient): Female Spiritual care concerns: No Exam Const: General: no acute distress and alert Nutritional Appearance: well nourished Orientation/consciousness: patient oriented x3 Limitations: no limitations HENMT: Head: normal to inspection Mouth: Yes Normal oral and palatal mucosa present, Yes lip normal and Yes moist mucous membranes Eyes: Pupils: Equal, round and reactive pupils present EOM: EOMs intact bilaterally Neck: Neck: normal visual inspection Chest: Chest palpation & inspection: normal inspection of the chest Resp: Effort & Inspection: normal respiratory effort Auscultation: clear to auscultation bilaterally Cardio: Rate: regular rate Rhythm: regular rhythm Heart sounds: no murmurs GI: GI Palp: Yes Soft to palpation, No Tenderness to palpation present (GI) and No Guarding due to palpation present (GI) Auscultation: normal bowel sounds Skin: General skin exam: normal color Rashes: no rashes Neuro: General: patient oriented x3, moves all extremities and CN's II-XI intact bilaterally Extrem: General: normal to inspection Psych: Mental Status: mental status grossly normal Affect: normal affect Attitude: cooperative Course Reevaluation(s) Date: 02/05/25 Vital Signs Vital signs: Vital Signs Temperature 98.6 F 02/05/25 09:36 Pulse Rate 127 H 02/05/25 09:36 Respiratory Rate 16 02/05/25 09:36 Blood Pressure 128/88 02/05/25 09:36 Pulse Oximetry 98 02/05/25 09:36 Temperature 98.6 F 02/05/25 09:36 Pulse Rate 87 02/05/25 13:01 Respiratory Rate 18 02/05/25 13:01 Blood Pressure 107/75 02/05/25 13:01 Pulse Oximetry 97 02/05/25 13:01 Oxygen Delivery Room Air 02/05/25 11:35 Medical Decision Making MDM Narrative Medical decision making narrative: Patient present with complaint of episodes of passing out without shaking or incontinence. labs and EKG ordered. no acute changes. CT brain ordered given she was worried about seizure although description of events seizure seems unlikely. PAtient complaints of chest pain , immunocompromised so CTA chest ordered. Her chronic pleural thickening was noted but no pericardial effusion. Patient was given IV fluids in ER . No hypotension on orthostatics. On review of her chart she has history of passing out and she is being followed by sales and merchandising representative. Patient is stable for outpatient evaluation. Differential Diagnosis Differential Diagnosis: Pericarditis, [place], ACS, PE, pneumonia, CHF, anxiety, orthostatic hypotension, POTS, dehydration, syncope, seizure Medical Records Medical records reviewed: Yes I reviewed the external patient's medical records. Vital Signs Vital Signs: Vital Signs Temperature 98.6 F 02/05/25 09:36 Pulse Rate 127 H 02/05/25 09:36 Respiratory Rate 16 02/05/25 09:36 Blood Pressure 128/88 02/05/25 09:36 Pulse Oximetry 98 02/05/25 09:36 Temperature 98.6 F 02/05/25 09:36 Pulse Rate 87 02/05/25 13:01 Respiratory Rate 18 02/05/25 13:01 Blood Pressure 107/75 02/05/25 13:01 Pulse Oximetry 97 02/05/25 13:01 Oxygen Delivery Room Air 02/05/25 11:35 Lab Data Lab results reviewed: Yes I reviewed the patient's lab results. 02/05/25 09:34 02/05/25 09:34 Labs: Lab Results 02/05/25 02/05/25 Range/Units 09:34 12:07 WBC 5.5 (4.5-10.0) K/mm3 RBC 4.16 L (4.2-5.4) M/mm3 Hgb 11.4 L (12.0-15.0) g/dL Hct 37.1 (37.0-47.0) % MCV 89.2 (80-100) fl MCH 27.4 (26-34) pg MCHC 30.7 L (32-36) g/dl RDW 17.1 H (11.5-14.5) % Plt Count 324 (150-375) k/mm3 MPV 11.0 H (7.4-10.4) fl Immature Gran % (Auto) 0.2 (0-0.5) % Neut % (Auto) 55.6 (45.5-73.1) % Lymph % (Auto) 28.4 (18.3-44.2) % [place] % (Auto) 12.8 H (2.6-8.5) % Eos % (Auto) 2.6 (0-4.4) % Baso % (Auto) 0.4 (0.2-1.2) % Lymph # (Auto) 1.55 (0.9-3.2) K/mm3 [place] # (Auto) 0.7 H (0.1-0.6) K/mm3 Eos # (Auto) 0.1 (0-0.3) K/mm3 Baso # (Auto) 0.0 (0.0-0.1) K/mm3 Abs Immat Gran (auto) 0.01 (0.00-0.031) K/mm3 Absolute Neuts (auto) 3.0 (1.3-6.7) K/mm3 Absolute Nucleated RBC 0.000 (0.0-0.012) K/mm3 Nucleated RBC % 0.0 (0.0-0.2) % PT 12.1 (11.1-14.7) Seconds INR 0.9 APTT 29.6 (22.3-36.8) Seconds Sodium 137 (137-145) mmol/L Potassium 4.0 (3.4-5.0) mmol/L Chloride 104 (98-107) mmol/L Carbon Dioxide 27 (22-30) mmol/L Anion Gap 6 (4-12) mmol/L BUN 13 (7-17) mg/dL Creatinine 0.69 L (0.7-1.0) mg/dL Estim Creat Clear Calc Not Reportable Estimated GFR > 60 (59 - ) Glucose 81 (65-110) mg/dL Calcium 9.0 (8.4-10.2) mg/dL Magnesium 1.8 (1.6-2.3) mg/dL Total Bilirubin 0.5 (0.2-1.3) mg/dL AST 30 (14-36) U/L ALT 18 (6-35) U/L Alkaline Phosphatase 68 (38-126) U/L Troponin I < 0.012 (0.000-0.034) ng/mL NT-Pro-B Natriuret Pep 38 (19.9-100) pg/mL Total Protein 7.8 (6.3-8.2) g/dL Albumin 4.1 (3.5-5.1) g/dL Urine Color Dark yellow (Yellow) Urine Appearance Clear (Clear) Urine pH 7.5 (5.0-9.0) Ur Specific [place] 1.033 (1.001-1.035) Urine Protein Negative (Negative) mg/dL Urine Glucose (UA) Negative (Negative) mg/dL Urine Ketones Trace H (Negative) mg/dL Ur Blood (Man) Negative (Negative) Urine Nitrate Negative (Negative) Urine Bilirubin 1+ H (Negative) Urine Urobilinogen 0.2 (<2.0) mg/dL Leukocyte Esterase Rfl Negative (Negative) NEGRO/UL Urine Opiates Screen Positive A (Negative) Urine Methadone Screen Negative (Negative) Ur Barbiturates Screen Negative (Negative) Ur Phencyclidine Scrn Negative (Negative) Ur Amphetamine Screen Negative (Negative) U Benzodiazepines Scrn Negative (Negative) Urine Cocaine Screen Negative (Negative) U Cannabinoids Screen Positive A (Negative) Imaging Data Radiologist's impression: ITS Impressions Head CT 02/05/25 12:04 IMPRESSION: 1. No acute intracranial findings. Chest CTA 02/05/25 12:21 IMPRESSION: 1. No PE or other acute cardiopulmonary findings. 2. Chronic pleural thickening right lung since November 2023. Recommend continued surveillance and/or more definitive characterization. ECG Data EKG #1: Attestation: I personally reviewed and interpreted this ECG as follows: ECG completion date: 02/05/25 ECG completion time: : EKG Interpretation: tachycardia (120), sinus rhythm, no ST changes and NL axis Discharge Plan Discharge Clinical Impression: Syncope Qualifiers: Encounter type: initial encounter Patient Disposition: Home Condition: Stable Instructions: Antibiotic Form, Syncope (ED) Additional Instructions: Please call your sales and merchandising representative and primary care provider on Friday. Stay hydrated and wear compression socks. Continue to refrain from driving Patient Language: Portuguese Prescriptions: No Action ropinirole 1 mg tablet 1 mg PO BID Rx Instructions: Pt takes one tablet with dinner and one tablet at HS doxepin 10 mg capsule 10 mg PO QHS Taltz Autoinjector 80 mg/mL auto-injector 80 mg subcut ONCE Patient Comments: ORdered by Rheumatology leflunomide 20 mg tablet 20 mg PO DAILY Zepbound 15 mg/0.5 mL pen injector 15 mg subcut WEEKLY Qty: 6 2RF cyclobenzaprine 10 mg tablet 10 mg PO TID divalproex 500 mg tablet extended release 24 hr PO aripiprazole 2 mg tablet PO alprazolam 0.25 mg tablet 0.25 mg PO BID PRN (Reason: anxiety) Qty: 20 0RF calcium citrate 200 mg (950 mg) tablet 600 mg PO BID cholecalciferol (vitamin D3) [Vitamin D3] 125 mcg (5,000 unit) Tablet 125 mcg PO DAILY Stool Softener 50 mg Capsule 50 mg PO TID sulfasalazine 500 mg tablet,delayed release (DR/EC) 500 mg PO TID hydrocodone-acetaminophen 5-325 mg tablet 1 tablet PO Q4H PRN (Reason: pain) Qty: 30 0RF duloxetine 60 mg capsule,delayed release(DR/EC) 60 mg PO BID Qty: 60 7RF gabapentin 600 mg tablet 600 mg PO TID Qty: 90 0RF clobetasol 0.05 % cream 1 applic topical DAILY Patient Comments: Prescribed by outside provider Vtama 1 % cream 1 applic topical DAILY Patient Comments: prescribed by outside provider pravastatin 20 mg tablet 20 mg PO QHS Qty: 90 1RF Follow-up/Referrals: Morena Sprague DO [Primary Care Provider, Family Practice]
[2025-02-05 13:01] VITALS: BP 107/75; PULSE 87; RESP 18; O2SAT 97
[2025-02-06 14:58] LABS: Non Pathogenic Casts 0-2
== END 2025-02-05 13:17 | disposition home or self-care (01) ==
PROVIDERS: Emergency Medicine; Emergency Provider General Practice; PCP Family Medicine
DX: R55 Syncope and collapse (principal); Z87.891 Personal history of nicotine dependence
CPT/HCPCS: 36415; 70450; 71275; 80053; 80307; 81001; 83735; 83880; 84484; 85025; 85610; 85730; 93005; 96360; 99284; J7120; Q9967

== ENCOUNTER 2025-02-22 07:22 | Outpatient (CLI) | payer BC, MEDICARE, SELFPAY ==
--- OUTSIDE RECORDS SUMMARY | 2025-01-31 04:45 | XMS_ITS ---
Author Organization [facility] [employer] Address [address] [place] [address] Care Team Providers Care System Integration Engineer Name Role Phone Morena Sprague DO Primary Care Provider UnavailAaron Luciano Unavailable [phone] REASON FOR VISIT Follow Up Medications Medication SIG (Take, Route, Frequency, Duration) Notes Start Date End Date Status sulfaSALAzine 500 MG Tablet Delayed Release Oral 09/24/2023 Active OptiChamber Cher SPACER (EA) MISCELLANEOUS 09/24/2023 Active Triamcinolone Acetonide 0.1% Cream External 09/24/2023 Active BUDESONIDE-FORMOTERO L HFA 80 MCG-4.5 MCG/ACTUATION AEROSOL INHALER *Reorder from [facility] for eRx and Interaction Alerts* 09/24/2023 Active Methocarbamol 500 MG Tablet Oral 09/24/2023 Active ZEPBOUND 2.5 MG/0.5 ML SUBCUTANEOUS PEN INJECTOR *Reorder from [facility] for eRx and Interaction Alerts* 09/24/2023 Active [...] Female Encounters Encounter Location Date Provider Diagnosis [facility] [address] [address] 01/31/2025 Aaron Pop Generalized anxiety disorder F41.1 [...] discontinuation Provider Name:Aaron wood, 03/07/2025 09:30:00 AM, [address], [facility] [address], [place], [address], History and Physical Notes * HPI (History [...] Notes * ANNABELLA GARCIADOB:[birth year] (49 yo F)Acc No.[id number]:01/31/2025 Patient: VON LAZCANOAH Provider: TIFFANI RAZO :1975 A ge:49 Y S ex:Female Date:01/31/2025 Address:[facility] [address] [facility] Pcp:Morena Sprague DO Check In:09:52 AM CSTCheck O ut:10: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 Subjective: * Chief Complaints: * F ollow [...] INJECTOR , Notes to Pharmacist: *Reorder from [facility] for eRx and Interaction Alerts*Depakote ER 500 MG Tablet Extended Release 24 Hour Oral Famotidine 40 MG Tablet Oral Methocarbamol 500 MG Tablet Oral BUDESONIDE- FORMOTEROL HFA 80 MCG-4.5 MCG/ACTUATION AEROSOL INHALER , Notes to Pharmacist: *Reorder from [facility] for eRx and Interaction Alerts*Triamcinolone Acetonide 0.1% [...] INJECTOR , Notes to Pharmacist: *[facility]order from [facility] for eRx and Interaction Alerts*Taking Depakote ER 500 MG Tablet Extended Release 24 Hour Oral Taking Famotidine 40 MG Tablet Oral Taking Methocarbamol 500 MG Tablet Oral Taking BUDESONIDE-FORMOTEROL HFA 80 MCG-4.5 MCG/ACTUATION AEROSOL INHALER , Notes to Pharmacist: *Reorder from [facility] for eRx and Interaction Alerts*Taking Triamcinolone [...] abilify discontinuation) Billing Information: * Visit Code: [id number] OFFICE OUTPATIENT VISIT 25 MINUTES DETAILED HISTORY AND EXAM/MODERATE MEDICAL DECISION MAKING. Modifiers: 95 * Procedure Codes: * Electronic signature of TIFFANI Garcia on 02/22/2025 at 07:29 AM CDT Sign off status: Pending * Provider: TIFFANI RAZO Date: 0 01/31/2025 Generated for Vicky interiano/Hernan/Don on: 07:29 AM CDT
--- NOTE | ~2025-02-22 | MM_ITS ---
EXAMINATION: MM screening rafael BI w to HISTORY: Screening TECHNIQUE: Craniocaudal and mediolateral oblique 3-D tomosynthesis images were obtained and synthetic 2-D images were generated. CAD analysis was submitted and interpreted. COMPARISON: 01/28/2024 BREAST PARENCHYMAL COMPOSITION: Not Dense: The breasts are almost entirely fatty. FINDINGS: There is no evidence of suspicious mass, calcification, or architectural distortion to suggest malignancy. There has been no suspicious interval change. Stable implantable loop recorder in the left breast. IMPRESSION: 1. No mammographic evidence of malignancy. Recommend routine screening mammography in one year. BI-RADS Category 2: Benign finding(s) Reviewed, dictated and finalized at location Q. IMPRESSION: 1. No mammographic evidence of malignancy. Recommend routine screening mammogra phy in one year. BI-RADS Category 2: Benign finding(s)
--- OUTSIDE RECORDS SUMMARY | 2025-02-22 07:28 | XMS_ITS | Encounter Summary ---
Author Organization [facility] Healthcare Address [address] [place] [address] Care Team Providers Care Welding Systems And Equipment Repairer Name Role Phone Morena Sprague DO Primary Care Provider [phone] Omar Valenzuela PA Unavailable [phone] Encounter Details Date Type Department Care Team (Late st Contact Info) Description 01/07/2025 Results Follow-Up [facility] Medical [facility] Cardiology [address] [place] [address] Sue Guerrier NP [address] [place] [address] Transthoracic Echo (TTE) Complete W [...] file Legal Sex Female 2:20 AM DIRECTOR COMPLIANCE Gender Identity Female 08/21/2020 9:29 PM CDT Sexual Orientation Straight 08/21/2020 9: 29 PM CDT 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
--- OUTSIDE RECORDS SUMMARY | 2025-02-22 07:28 | XMS_ITS | Clinical Summary ---
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
--- OUTSIDE RECORDS SUMMARY | 2025-02-22 07:28 | XMS_ITS | Clinical Summary ---
Author Organization [facility] Address [address] [place] [address] Phone Care Team Providers Care Etl Developer Name Role Phone PoonamsusiMorena fernandez Primary Care Provider [phone] Medications DULoxetine (CYMBALTA) [address] [...] Screening 2022 Immunochemical Fecal Occult Blood 2022 Medicare Initial AWV [id number] 06/12/2022 Mammogram 02/28/2023 02/28/2022, 0705/2020, 10/25/2019, Additional history exists Influenza Immunization (#1) [...] patient's age to complete this topic Insurance [facility] MEDICARE C AETNA Care Teams Etl Developer Relationship Specialty Start Date End Date Morena Sprague DO [address] [place] [address] PCP - General Family Medicine 10/30/22
--- OUTSIDE RECORDS SUMMARY | 2025-02-22 07:28 | XMS_ITS | Encounter Summary ---
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
--- OUTSIDE RECORDS SUMMARY | 2025-02-22 07:29 | XMS_ITS | Patient Health Record ---
Author Organization [facility] Address [address] [place] [address] Care Team Providers Care Farm Boss Name Role Phone Morena Sprague DO Primary Care Provider UnavailAaron Luciano Unavailable [phone] Allergies Allergen (clinical drug ingredient) Drug/Non Drug Allergy documented on EMR Reaction Allergy Type Onset Date Status Substance with penicillin structure and antibacterial mechanism of action (substance) Penicillins Unknown Drug Allergy 07/14/2023 Active Reason For Referral No Information Medications Medication SIG (Take, Route, Frequency, Duration) Notes Start Date End Date Status LORazepam 1 MG Tablet 1 tablet Orally twice a day; Duration: 14 days As needed 02/11/2025 Active Vitamin D 25 MCG (1000 UT) Tablet 1 tablet Orally Once a day Active sulfaSALAzine 500 MG Tablet Delayed Release Oral 09/24/2023 Active Vitamin B Complex - Tablet as directed Orally Active rOPINIRole HCl 1 MG Tablet TAKE 1 TABLET BY MOUTH TWICE A DAY; Duration: 90 Active Multivitamin - Tablet 1 tablet Orally Once a day Active Doxepin HCl 10 MG Capsule TAKE 1 CAPSULE BY MOUTH EVERYDAY AT BEDTIME; Duration: 90 Active Gabapentin 600 MG Tablet Oral tid 09/24/2023 Active Acetaminophen-Codei ne 300-60 MG Tablet TAKE 1 TABLET BY MOUTH TWICE A DAY NEEDED Oral; Duration: 21 Days Active OptiChamber Cher SPACER (EA) MISCELLANEOUS 09/24/2023 Active Doxepin HCl 10 MG Capsule 1 capsule at bedtime Oral Once a day; Duration: 90 days 02/09/2025 Active BUDESONIDE-FORMOTER OL HFA 80 MCG-4.5 MCG/ACTUATION AEROSOL INHALER *Reorder from [employer] for eRx and Interaction Alerts* 09/24/2023 Active Triamcinolone Acetonide 0.1% Cream External 09/24/2023 Active QUEtiapine Fumarate ER 50 MG Tablet Extended Release 24 Hour 1 tablet in the evening Orally Once a day; Duration: 30 days 02/21/2025 Active ZEPBOUND 2.5 MG/0.5 ML SUBCUTANEOUS PEN INJECTOR *Reorder from [email or web address] for eRx and Interaction Alerts* 09/24/2023 Active Acetaminophen-Codei ne 300-60 MG Tablet Oral; Duration: 21 Days Active Depakote ER 500 MG Tablet Extended Release 24 Hour Oral 09/24/2023 Active rOPINIRole HCl 1 MG Tablet 1 tablet Oral twice a day; Duration: 90 days 02/09/2025 Active Famotidine 40 MG Tablet Oral 09/24/2023 Active Divalproex Sodium ER 500 MG Tablet Extended Release 24 Hour TAKE 1 TABLET TWICE A DAY BY ORAL ROUTE FOR 90 DAYS.; Duration: 90 Not-Taking DULoxetine HCl 60 MG Capsule Delayed Release Particles 1 capsule Oral twice a day; Duration: 90 days 02/09/2025 Active Methocarbamol 500 MG Tablet Oral 09/24/2023 Active Immunizations Vaccine Route Administration Date [...] 02/09/2017 Administered MMR Unknown 03/06/2016 Administered Novel [id number], preservative free Unknown 02/10/2020 Administered Pfizer Biontech Covid-19 Vac cine 2nd dose Unknown 07/11/2020 Administered Pfizer Biontech Covid-19 Vac cine 2nd dose Unknown 08/05/2020 Administered Pfizer Biontech Covid-19 Vac cine 2nd dose Unknown 01/01/2021 Administered Pfizer Biontech Covid-19 Vac cine 2nd dose Unknown 02/12/2022 Administered Social History Tobacco Use: Social History Observation Description Date Details (start date - stop date) Former Smoker 05/12/1994 - 05/12/2002 Sex Assigned At : Social History Observation Description Sex Assigned At Female Social History Tobacco Use: Social Info Question Answer Notes Tobacco Control (Standard) Tobacco use: Former smoker When did you start smoking? 05/12/1994 When did you stop smoking? 05/12/2002 How long has it been since you last smoked? Greater than 10 years Additional Details Category Social Info Options Details Migrated Social History Migrated Social History Alcohol Intake: None 12/21/2020,Tobacco Years: Former smoker 03/14/2020,Smoking Status: 10 05/14/2023 Problems Problem Type SNOMED Code ICD Code Onset Dates Problem Status W/U Status Risk Notes Problem Mild recurrent major depression (09315773) Major depressive disorder, recurrent, mild (F33.0) Active confirmed Problem Generalized anxiety disorder (92059929) Generalized anxiety disorder (F41.1) Active confirmed Problem Restless legs syndrome (51579480) Restless legs syndrome (G25.81) Active confirmed Problem Insomnia (675088757) Other insomnia (G47.09) Active confirmed Vital Signs Height-cm 175.26 cm 06/16/2024 Height 69.00 in 06/16/2024 Encounters Encounter Location Date Provider Diagnosis [facility] [address] [address] 01/31/2025 Aaron Pop Generalized anxiety disorder F41.1 ; Major depressive disorder, recurrent, mild F33.0 ; Other insomnia G47.09 and Restless legs syndrome G25.81 [facility] [address] [address] 06/16/2024 Aaron Pop Generalized anxiety disorder F41.1 ; Major depressive disorder, recurrent, mild F33.0 ; Other insomnia G47.09 ; Restless legs syndrome G25.81 and Major depressive disorder, recurrent severe without psychotic features 296.33 [facility] [address] [facility] [address] [place] [address] 10/19/2024 Aaron Pop Generalized anxiety disorder F41.1 ; Major depressive disorder, recurrent, mild F33.0 ; Other insomnia G47.09 ; Restless legs syndrome G25.81 and Major depressive disorder, recurrent severe without psychotic features 296.33 [facility], [facility] [address] [place] [address] 11/23/2024 Aaron Pop Generalized anxiety disorder F41.1 ; Major depressive disorder, recurrent, mild F33.0 ; Other insomnia G47.09 and Restless legs syndrome G25.81 [facility], [facility] [address] [place] [address] 12/29/2024 Aaron Pop Generalized anxiety disorder F41.1 ; Major depressive disorder, recurrent, mild F33.0 ; Other insomnia G47.09 and Restless legs syndrome G25.81 [facility], [facility] [address] [place] [address] 02/09/2025 Aaron Pop Generalized anxiety disorder F41.1 ; Major depressive disorder, recurrent, mild F33.0 ; Other insomnia G47.09 and Restless legs syndrome G25.81 [facility], [facility] [address] [place] [address] 02/17/2025 Aaron Pop Major depressive disorder, recurrent, mild F33.0 [facility], [facility] [address] [place] [address] 03/19/2024 Aaron Pop Major depressive disorder, recurrent, mild F33.0 [facility], [facility] [address] [place] [address] 03/19/2024 Aaron Pop [facility], [facility] [address] [place] [address] 02/15/2025 Aaron Pop [facility], [facility] [address] [place] [address] 02/04/2025 Aaron Pop Generalized anxiety disorder F41.1 [facility], [facility] [address] [place] [address] 02/11/2025 Aaron Pop [facility], [facility] [address] [place] [address] 02/11/2025 Aaron Pop Major depressive disorder, recurrent, mild F33.0 [facility], [facility] [address] [place] [address] 02/11/2025 Aaron Pop Generalized anxiety disorder F41.1 Assessments Encounter Date Diagnosis (ICD Code) Assessment Notes Treatment Notes Treatment Clinical Notes Section Notes 02/04/2025 Generalized anxiety disorder (ICD-10 - F41.1) 02/11/2025 Major depressive disorder, recurrent, mild (ICD-10 - F33.0) 02/11/2025 Generalized anxiety disorder (ICD-10 - F41.1) 02/09/2025 Major depressive disorder, recurrent, mild (ICD-10 - F33.0) 02/09/2025 Generalized anxiety disorder (ICD-10 - F41.1) stable [...] depressive disorder, recurrent, mild (ICD-10 - F33.0) 02/17/2025 Major depressive disorder, recurrent, mild (ICD-10 - F33.0) Electronic Prior Authorization was requested for QUEtiapine Fumarate ER 50 MG Tablet Extended Release 24 Hour. Provider can order medication once approval received. 02/09/2025 Other insomnia (ICD-10 - G47.09) Doxepin 10mg hs 02/09/2025 Restless legs syndrome (ICD-10 - G25.81) ropinirole 1mg 12/29/2024 Other insomnia (ICD-10 - G47.09) Doxepin 10mg 01/31/2025 Other insomnia (ICD-10 - G47.09) Doxepin 10mg 06/16/2024 Other insomnia (ICD-10 - G47.09) Doxepin 10mg 11/23/2024 Other insomnia (ICD-10 - G47.09) Doxepin 10mg 10/19/2024 Other insomnia (ICD-10 - G47.09) Doxepin [...] for 90 days. - Send prescriptions to [facility] pharmacy. Follow-up: - Schedule a follow-up appointment in 4 months. - Patient will schedule the appointment through the [facility]. - Encourage the patient to reach [...] is currently under the care of a apprentice painter neckties and is taking Tylenol 4 for pain control. Additionally, steps are being taken to obtain a medical marijuana card for potential pain management. Plan: - Continue current pain management regimen: - Tylenol 4 - gabapentin - duloxetine - Follow up with apprentice painter neckties as scheduled - Proceed with obtaining medical [...] and experiences daytime somnolence, including falling asleep mid-conversation. The patient is currently seeing a pain [...] efforts have been made to correct them. 02/09/2025 Other pt reports new onset seizure activity since stress with son, reports went to the ER, was sent home. Reports multiple seizures per day. Annabella Garcia presents with anxiety, panic, and recent onset of seizures, complicated by her son's recent diagnosis of self-harm, substance use, and eating disorder. Anxiety and Panic Assessment: Patient reports ongoing anxiety and panic symptoms. Recently prescribed lorazepam 1 mg twice daily on February 04, but reports it is not helping. Sleep disturbances are present. Patient has a history of taking gabapentin and Depakote. Previous trial of quetiapine was unsuccessful, though details are unclear. Current stressors include her son's recent mental health diagnoses. Plan: - Continue lorazepam - Strongly recommend finding a counselor for therapy - Consider short-term use of quetiapine for anxiety management, pending neurological evaluation New-onset Seizures Assessment: Patient reports recent onset of seizures, including two episodes in the emergency room waiting area. No prior history of seizures. Currently taking gabapentin and Depakote, which are anti-seizure medications. Patient admits to missing doses of gabapentin. The abrupt discontinuation of gabapentin (600 mg dosage) is noted as potentially problematic. Plan: - Advise immediate evaluation at a different emergency room for neurological assessment - Continue current medications, including gabapentin and Depakote - Patient to message clinician with emergency room findings and treatment plan - Defer medication adjustments pending neurological evaluation the note is transcribed using speech recognition software. It is a reflection of a visit with the patient. It might have some inaccuracy, including medication names and transcribing errors, though efforts have been made to correct them. Plan Of Treatment Next Appt Details Provider Name:Aaron wood, 03/07/2025 09:30:00 AM, [address], [facility] [address], [place], [address], Insurance Providers Payer Name Payer Address Payer Phone Subscriber Number Group Number Insured Name Patient Relationship to Insured Coverage Start Date Coverage End Date Aetna [address] [place] [address] [phone] [id number] BOHNEANNABELLA ARAUZ Self - patient is the insured [employer] [employer] [address] [place] [address] [id number] ANNABELLA MUKHERJEE Spouse - patient is the spouse of the insured Medical (General) History Medical History History ICD Code Imported from [employer] Th e patient has been under consistent [...] and telephone check-up with SIOMARA Nelson at [facility], for iron deficiency anemia, thrombocytosis, and B12 deficiency. External device data was also collected multiple times by Provider Abstract at [facility]. The patient's conditions have been managed through a combination of in-person visits, telephone consultations, and remote monitoring. Imported from [employer] On 12/16/2022, the patient was seen by [...] Surgical History Surgery Date(Month/Year) Removal of gallbladder (62506) 5 Endometrial ablation (319220120) 009 Endometrial ablation (95776) 05/12/2014 Hysterectomy (63531) 10/14/2018 Total knee replacement (238831470) left 03/16/2020 Breast surgery (69055) 04/20/2019
--- OUTSIDE RECORDS SUMMARY | 2025-02-22 07:29 | XMS_ITS | Clinical Summary ---
Author Organization [facility] Radha Mcbride Address [address] [place] [address] Care Team Providers Care Jet Worker Name Role Phone Morena Sprague Primary Care Provider [phone] Allergies Active Allergy Reactions Criticality Noted Date [...] Description 2025 8:30 AM CDT Office Visit [facility] Oncology and Hematology - Ger [address] [place] [address] Jeffy Chang MD [address] [facility] [address] [place] [address] Health Maintenance Due Date Last [...] 02/29/20 22, 02/28/2022, 11/09/2020, Additional history exists Preventative Visit- Commercial 05/12/2024 INFLUENZA VACCINE (#1) 2024 , 02/09/2019, 02/19/2018, Additional history exists COLORECTAL SCREENING 07/20/2030 07/20/2020, 07/21/19 21 Colorectal Cancer Screening 07/20/2030 Procedures Procedure Name Priority Date/Time Associated Diagnosis Comments VITAMIN B12 AND FOLATE Routine 02/19/2025 7:20 AM CDT Chronic anemia IRON, TIBC, AND PERCENT SATURATION Routine 02/19/2025 7:20 AM CDT Chronic anemia FERRITIN Routine 02/19/2025 7:20 AM CDT Chronic anemia from Last 3 Months Results * VITAMIN B12 AND FOLATE (02/19/2025 7:20 AM CDT) VITAMIN B12 336 200 - 1100 pg/mL [facility] Comment: Please Note: Although the reference range for vitamin B12 is 200-1100 pg/mL, it has been reported that between 5 and 10% of patients with values between 200 and 400 pg/mL may experience neuropsychiatric and hematologic abnormalities due to occult B12 deficiency; less than 1% of patients with values above 400 pg/mL will have symptoms. FOLATE, SERUM 14.0 ng/mL [facility] Comment: Reference Range Low: <3.4 Borderline: 3.4-5.4 Normal: >5.4 Test Performed at: [facility] [address] Vasquez Thornton MD Blood 02/19/2025 7:20 AM CDT 02/19/2025 7:20 AM CDT us Jeffy Chang MD CHEMISTRY ORDERABLES Final Resu lt Performing Organization Address [facility] Co de Phone Number [facility] [phone] [facility] [address] * IRON, TIBC, AND PERCENT SATURATION (02/19/2025 7:20 AM CDT) IRON 66 40 - 190 mcg/dL [facility] TIBC 351 250 - 450 mcg/dL (calc) [facility] IRON % SATURATION 19 16 - 45 % (calc) [facility] Comment: Test Performed at: [facility] [address] Vasquez Thornton MD Blood 02/19/2025 7:20 AM CDT 02/19/2025 7:20 AM CDT us Jeffy Chang MD CHEMISTRY ORDERABLES Final Resu lt Performing Organization Address City/[facility]/ZIP Co de Phone Number [facility] [phone] [facility] [address] * FERRITIN (02/19/2025 7:20 AM CDT) FERRITIN 24 16 - 232 ng/mL [facility] Comment: Test Performed at: [facility] [address] [address] Vasquez Thornton MD Blood 02/19/2025 7:20 AM CDT 02/19/2025 7:20 AM CDT Jeffy Chang MD CHEMISTRY ORDERABLES Final Resu lt [facility] [phone] [facility] [address] [address] from Last 3 Months Insurance BCBS BLUE ACCESS/TRUE BLUE PPO AETNA O [facility] Care Teams Jet Worker Relationship Specialty Start Date End Date Morena Sprague DO [facility] [address] [place] [address] PCP - General Family Practice 10/22/23
--- OUTSIDE RECORDS SUMMARY | 2025-02-22 07:29 | XMS_ITS | Encounter Summary ---
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
--- OUTSIDE RECORDS SUMMARY | 2025-02-22 07:29 | XMS_ITS | Encounter Summary ---
Author Organization [facility] Address [address] [place] [address] Phone Care Team Providers Care Grain Oilseed Or Pasture Farm Worker Name Role Phone Geovanny Mayberry Primary Care Provider [phone] Zina Davis MD Primary Care Provider Emelina Singh DPT Unavailable [phone] Morena Sprague DO Primary Care Provider [phone] Omar Valenzuela Unavailable [phone] Encounter Details Date Type Department Care Team (Latest Contact Info) Description 10/05/2014 Orders Only [facility] Scanning, Provider Social History Tobacco Use Types Packs/Day Years Used Date Smoking Tobacco: Never Assessed Comments Unknown Sex and Gender Information Value Date Recorded Sex Assigned at Not on file Legal Sex 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 Gender Identity Female 08/21/2020 9:29 PM [...] on filedocumented in this encounter Care Teams Grain Oilseed Or Pasture Farm Worker Relationship Specialty Start Date End Date Geovanny MayberryRadu [address] [place] [address] PCP - General 08/04/17 03/04/19 Zina Davis MD [address] [place] [address] PCP - General Family Practice 03/05/19 03/12/21 Morena Sprague DO [address] [place] [place] [address] PCP - General Family Medicine 03/13/21 Emelina Singh DPT [address] [place] [address] Physical Therapist Physical Therapy 06/23/19 03/16/20 Omar Valenzuela PA [address] [place] [address] [place] [address] Physician Pricing Analyst Orthopedic Surgery 09/21/24 documented as of this encounter
--- OUTSIDE RECORDS SUMMARY | 2025-02-22 07:30 | XMS_ITS | Clinical Summary ---
Author Organization [facility] Address [address] [place] [address] Care Team Providers Care Precision Lens Grinder Name Role Phone Morena Sprague DO Primary Care Provider [phone] Omar Valenzuela PA Unavailable [phone] Allergies Active Allergy Reactions Criticality Noted Date [...] TO PSORIASIS AT BEDTIME. 06/18/19 25 Active leflunomide (ARAVA) 20 mg [...] ML) SUBCUTANEOUSLY WEEKLY 07/07/19 25 Active ixekizumab (Taltz Autoinjector, 2 Pack,) auto-injector [...] (three) times a day 05/15/19 24 Active HYDROcodone-ac etaminophen (NORCO) 5-325 mg per tablet Take 1 tablet by mouth every 6 (six) hours as needed for pain 01/04/20 25 Active nystatin cream Apply topically as needed Active nystatin-triam cinolone cream Apply topically 2 (two) times a day Active pravastatin (PRAVACHOL) 20 mg tablet Take 1 tablet (20 mg total) by mouth daily 08/14/19 Active LORazepam (ATIVAN) 1 mg tabletIndicati ons:anxiety Take 1 tablet (1 mg total) by mouth 2 (two) times a day Take morning and nightly 9 and 2100 Active CALCIUM ORAL Take by mouth Unsure med dosage every day Discontin ued(Patie nt Reported) ARIPiprazole (ABILIFY) 10 mg tablet Take 1 tablet (10 mg total) by mouth 10/03/19 025 Discontin ued(Patie nt Reported) baclofen (LIORESAL) 10 mg tablet Take 1 tablet (10 mg total) by mouth as needed for muscle spasms 04/19/20 Discontin ued(Patie nt Reported) clobetasoL (TEMOVATE) 0.05 % ointment PLEASE SEE ATTACHED FOR DETAILED DIRECTIONS 06/18/19 Discontin ued(Dupli nickolas order) meclizine (ANTIVERT) 25 mg tablet TAKE 1 [...] as needed for pain 33 tablet 09/29/19 25 025 Discontin ued(Patie nt Reported) doxycycline 100 mg tablet Take 1 tablet/capsule (100 mg total) by mouth 2 (two) times a day 01/12/20 025 Discontin ued(Thera py completed ) ARIPiprazole (ABILIFY) 2 mg tablet Take 1 tablet (2 mg total) by mouth daily 12/30/19 025 Discontin ued(Thera py completed ) Active Problems Problem Noted Date Diagnosed Date Seizure disorder, complex partial 02/10/2025 Seizure-like activity 02/09/2025 Pericardial effusion 01/25/2025 Subdeltoid bursitis, left 09/02/2024 [...] w/r/t gut microbiome. Referred to ADA and [employer] websites for additional information on topics [...] not improve, I recommend her seeing a chicken hatchery helper or CRS. Anxiety and depression 08/04/2017 Panic [...] normal. Assessment & Plan (06/19/2020 3:56 PM SUMMER LAW CLERK): She presents with extensive prior workup for [...] reflex an refer to rheumatology here at [facility] for second opinion on her joint issues. We will see her back in clinic after her endoscopies for further evaluation and to make decisions about potential treatments. Encounters Date Type Department Care Team Description 02/11/2025 Documentation [facility] [address] [facility] [address] [place] [address] Yazan Browne MD 02/10/2025 10:44 AM CDT - 02/10/2025 6:56 PM CDT Hospital Encounter [facility] [address] [place] [address] King Hernandez MD Nikolic, Jelena, MD Seizure-like activity (HCC) (Primary Dx); Seizure disorder, complex partial (HCC) [G40.209] Discharge Disposition: Left Against Medical Advice 02/09/2025 11:44 AM CDT - 02/09/2025 4:51 PM CDT Emergency [facility] Emergency Department [address] [place] [address] Whit Cao MD Seizure-like activity (HCC) (Primary Dx) Discharge Disposition: Left Against Medical Advice 01/25/2025 10:15 AM CDT Office Visit [facility] [address] [place] [phone] Enrrique Ga MD Pericardial effusion (Primary Dx) 01/24/2025 7:45 AM CDT Ancillary Procedure [facility] [address] [facility] [address] [place], [place] [address] [phone] Palpitations (Primary Dx); Syncope and collapse; Status post placement of implantable loop recorder 01/07/2025 Telephone [facility] [address] [place] [address] [place] [phone] Sue Smith NP 01/07/2025 Results Follow-Up [place] [address] [place] [phone] Sue Smith, MAGAN Transthoracic Echo (TTE) Complete W Doppler/CF 01/06/2025 11:15 AM CDT Ancillary Procedure [place] [address] [place] [phone] of the chest 01/06/2025 Telephone [place] [address] [place] [phone] Sue Smith NP 12/13/2024 7:30 AM CDT Ancillary Procedure [facility] [address] [place] [address] [place], [place] [address] [phone] Syncope and collapse; Status post placement of [...] - 05/11/2015 BLADDER SURGERY 05/12/2018 - 05/11/2019 [place] ARTHRP KNE CONDYLE&PLATU MEDIAL&LAT COMPARTMENTS 03/15/2020 Left [place] [facility] [place] KNEE ARTHROSCOPY ABDOMINAL SURGERY 1994 SKIN BIOPSY Medical History Medical History Date Comments Sleep apnea Proctitis Osteoarthritis Fibromyalgia Interstitial cystitis Rectocele Cystocele with rectocele Fibromyalgia, primary Pelvic floor dysfunction Joint pain Incontinence GERD (gastroesophageal reflux disease) Depression 1994 Anxiety 2009 Autoimmune disease 2020 Motion sickness Ankylosing spondylitis Essential hypertension 10/23/2021 Pneumonia Pleural effusion drain 6 times Seizure-like activity (HCC) 02/09/2025 Family History Medical History Relation Name Comments [...] = 0.6 oz pur e alcohol) socially Exercise Vital Sign Answer Date Recorde d Days of Exercise per Week 7 days 2018 Minutes of Exercise per Session 20 min 04/28/2019 AUDIT-C Answer Date Recorded Q1: How often do you have a drink containing alc ohol? Never 02/10/2025 Average Number of Drinks Not on file Frequency of Binge Drinking Not on file 06/2024 Personal Safety Answer Date Recorded Have you ever been in or are you currently in a harmful physical or emotional relationship or is someone making you feel afraid or unsafe? 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 Not on file [...] Sign Reading Time Taken Comments Blood Pressure 116/79 02/10/2025 2:00 PM CDT Pulse 105 02/10/2025 2:00 PM CDT Temperature 36.1 C (97 F) 02/10/2025 2:00 PM CDT Respiratory Rate 20 02/10/2025 2:00 PM CDT Oxygen Saturation 96% 02/10/2025 2:00 PM CDT Inhaled Oxygen Concentration - - Weight 91.2 kg (201 lb 1 oz) 02/10/2025 2:00 PM CDT Height 177.8 cm (5' 10) 02/10/2025 2:00 PM CDT Body Mass Index 28.85 02/10/2025 2:00 PM CDT Plan of Treatment Health Maintenance Due Date Last Done Comments Depression Screening 1977 Hepatitis C Screening 1977 DTaP/Tdap/Td Vaccine (1 - Tdap) 02/26/1988 Regular Well Visit/Exam 18-64 1995 Breast Cancer Screening-Mammogram 02/28/2023 02/28/2022, 11/09/2020, 10/25/2019 Covid-19 Vaccine ( - 2024- season) 2025 02/12/2022, 01/01/2021, 08/05/2020, Additional history exists Influenza Vaccine (#1) 2025 , 02/10/2020, 02/09/2019, Additional history exists Colon Cancer Screening-Colonoscopy 07/20/2030 07/20/2020 Hepatitis B Screening Completed 06/19/2020 Pneumococcal vaccine <65 Aged Out No longer eligible based on patient's age to complete this topic Procedures Procedure Name Priority Date/Time Associated Diagnosis Comments EEG Routine 02/10/2025 4:55 PM CDT MRI BRAIN WO CONTRAST ED 02/10/2025 3:[address] HEAD WO CONTRAST ED 02/09/2025 1 1:29 AM CDT DRUGS OF ABUSE SCREEN, URINE WITHOUT CONFIRMATION STAT 02/09/2025 11:15 AM CDT URINALYSIS AND REFLEX TO MICROSCOPIC AND CULTURE STAT 02/09/2025 11:15 AM CDT XR SHOULDER LEFT 2 OR MORE VIEWS ED 02/09/2025 11:13 AM CDT ECG 12-LEAD STAT 02/09/2025 10:59 AM CDT EGFR STAT 02/09/2025 10:45 AM CDT DIFFERENTIAL AUTO STAT 02/09/2025 10: 45 AM CDT SALICYLATE LEVEL STAT 02/09/2025 10:4 5 AM CDT ETHANOL STAT 02/09/2025 10:45 AM CDT ACETAMINOPHEN LEVEL STAT 02/09/2025 1 0:45 AM CDT COMPREHENSIVE METABOLIC PANEL STAT 02/09/2025 10:45 AM CDT CBC WITH AUTO DIFFERENTIAL STAT 02/09/2025 10:45 AM CDT DEVICE CHECK - REMOTE Routine 01/25/2025 12:05 PM CDT Syncope and collapse Status post placement of implantable loop recorder TRANSTHORACIC ECHO (TTE) COMPLETE W DOPPLER/CF WO CONTRAST Routine 01/06/2025 12:[address] of the chest DEVICE CHECK - REMOTE Routine 12/14/2024 9:02 AM CDT Syncope and collapse Status post placement of implantable loop recorder DIAGNOSTIC MAMMOGRAM BILATERAL W JAVAN Schedule Routine, Read Routine (OP Routine) 02/28/2022 11:30 AM CDT Mass of breast, unspecified laterality COLONOSCOPY 07/20/2020 9:05 AM SUMMER LAW CLERK from Last 3 Months or Most Recently Relevant to Health Maintenance Results * EEG (02/10/2025 4:55 PM CDT) Anatomical Region Laterality Modality Other Impressions 02/10/2025 4:56 PM CDT History: This is a 49 years old female patient being evaluated for seizure disorder. The condition of the patient during the tracing was reported to be awake and drowsy. The quality of study is good. The background activity consisted of 6-7 hertz theta activity of moderate amplitude. There was no epileptiform discharges seen in this tracing. EKG showed regular rate and rhythm. Impressions: This is an abnormal EEG because of slightly diffuse slowing. The finding is suggestive of very mild encephalopathy which could be secondary to metabolic, hypoxic or toxic insult and sedative side effect of medications. There was no epileptiform discharge seen in this tracing. The clinical correlation is recommended. us King Hernandez MD NEUROLOGY ORDERABLE S Final Result * MRI Brain WO Contrast (02/10/2025 3:09 PM CDT) Anatomical Region Laterality Modality Head and Neck N/A Magnetic Resonan ce 02/10/2025 3:12 PM CDT Narrative 02/10/2025 3:17 PM CDT EXAM DESCRIPTION: MRI BRAIN WO CONTRAST REASON FOR STUDY: Reported new onset seizures over the past week. No provided focal neurologic deficits. No known trauma. No provided past medical or surgical history. TECHNIQUE: Multiplanar imaging includes non-contrasted T1, T2, FLAIR, and diffusion with ADC map sequences. Additional sequence(s) sensitive to blood products. Images stored on PACS. COMPARISON: CT head without contrast 02/09/2025; CT head/cervical spine without contrast 05/17/2022. FINDINGS: CEREBRUM: No acute intra-axial hemorrhage. No edema, mass effect, midline shift, or herniation. WHITE MATTER: Isolated tiny T2/FLAIR hyperintense focus in the subcortical anterior right frontal lobe, nonspecific. POSTERIOR FOSSA: Brainstem and cerebellum are unremarkable. DIFFUSION IMAGING: No restricted diffusion to suggest acute/subacute ischemia or infarct. EXTRAAXIAL SPACES: No extra-axial fluid collection. No extra-axial mass. BRAIN VOLUME: Within normal limits for age. PITUITARY: Unremarkable. VASCULATURE: No flow disturbance evident. CALVARIUM: Unremarkable. ORBITS: No acute abnormality. Ocular lenses and globes normal in conformation and position. PARANASAL SINUSES AND MASTOIDS: Left-directed bony nasal septal spur. Right middle nasal turbinate aman bullosa. No significant mucosal thickening and no fluid levels of the paranasal sinuses. Mastoid air cells well aerated. OTHER: No other significant finding. IMPRESSION: No acute intracranial process. THIS IS AN ELECTRONICALLY VERIFIED FINAL REPORT 02/10/2025 3:17 PM - Electronically signed by Markos Marmolejo M.D. JALEESA: JALEESA Report ID: [id number] Reading Location: [place] [address] Procedure Note Markos Marmolejo MD - 02/10/2025 EXAM DESCRIPTION: MRI BRAIN WO CONTRAST REASON FOR STUDY: Reported new onset seizures over the past week. Noprovided focal neurologic deficits. No known trauma. No provided past medical or surgical history. TECHNIQUE: Multiplanar imaging includes non-contrasted T1, T2, FLAIR, and diffusion with ADC map sequences. Additional sequence(s) sensitive toblood products. Images stored on PACS. COMPARISON: CT head without contrast 02/09/2025; CT head/cervical spine without contrast 05/17/2022. FINDINGS: CEREBRUM: No acute intra-axial hemorrhage. No edema, mass effect,midline shift, or herniation. WHITE MATTER: Isolated tiny T2/FLAIR hyperintense focus in the subcortical anterior right frontal lobe, nonspecific. POSTERIOR FOSSA: Brainstem and cerebellum are unremarkable. DIFFUSION IMAGING: No restricted diffusion to suggest acute/subacute ischemia or infarct. EXTRAAXIAL SPACES: No extra-axial fluid collection. No extra-axialmass. BRAIN VOLUME: Within normal limits for age. PITUITARY: Unremarkable. VASCULATURE: No flow disturbance evident. CALVARIUM: Unremarkable. ORBITS: No acute abnormality. Ocular lenses and globes normal in conformation and position. PARANASAL SINUSES AND MASTOIDS: Left-directed bony nasal septal spur.Right middle nasal turbinate aman bullosa. No significant mucosal thickeningand no fluid levels of the paranasal sinuses. Mastoid air cells well aerated. OTHER: No other significant finding. IMPRESSION: No acute intracranial process. THIS IS AN ELECTRONICALLY VERIFIED FINAL REPORT 02/10/2025 3:17 PM - Electronically signed by Markos Marmolejo M.D. JALEESA: JALEESA Report ID: [id number] Reading Location: [id number] King Hernandez MD IMG MRI PROCEDURES Final Result * CT Head WO Contrast (02/09/2025 11:29 AM CDT) Anatomical Region Laterality Modality Head and Neck N/A Computed Tomogra phy 02/09/2025 11:3 4 AM CDT Narrative 02/09/2025 11:43 AM CDT EXAM DESCRIPTION: CT HEAD WO CONTRAST REASON FOR STUDY: Headaches. Episodes of going blank. Five episodes today. Fell and hit left shoulder and head Pt reports that she is having increased anxiety over the last week and has been having multiple episodes over the last 1 week that last around 30 seconds and her body stiffens up. Pt reports 5 episodes today. Pt reports she feels as if she is having a panic attack. TECHNIQUE: Axial images acquired through the brain without intravenous contrast. Images stored on PACS. Automated exposure control was used as a dose optimization technique for this examination. COMPARISON: CT head 05/17/2022 FINDINGS: BRAIN: No hemorrhage, edema or mass effect. No recent infarct. Normal white matter. EXTRA-AXIAL SPACES: No fluid collections. No masses. CALVARIUM: No fracture. SINUSES/MASTOIDS: No fluid or mucosal thickening. ORBITS: No significant abnormality. OTHER: No other significant abnormality. IMPRESSION: No acute intracranial findings. THIS IS AN ELECTRONICALLY VERIFIED FINAL REPORT 02/09/2025 11:43 AM - Electronically signed by Neel Mahoney M.D. AM: AM Report ID: [id number] Reading Location: [id number] Procedure Note Neel Mahoney MD - 02/09/2025 EXAM DESCRIPTION: CT HEAD WO CONTRAST REASON FOR STUDY: Headaches. Episodes of going blank. Five episodestoday. Fell and hit left shoulder and head Pt reports that she is having increased anxiety over the last week and has been having multiple episodes over the last 1 week that last around 30seconds and her body stiffens up. Pt reports 5 episodes today. Pt reports shefeels as if she is having a panic attack. TECHNIQUE: Axial images acquired through the brain without intravenous contrast. Images stored on PACS. Automated exposure control was used asa dose optimization technique for this examination. COMPARISON: CT head 05/17/2022 FINDINGS: BRAIN: No hemorrhage, edema or mass effect. No recent infarct. Normal white matter. EXTRA-AXIAL SPACES: No fluid collections. No masses. CALVARIUM: No fracture. SINUSES/MASTOIDS: No fluid or mucosal thickening. ORBITS: No significant abnormality. OTHER: No other significant abnormality. IMPRESSION: No acute intracranial findings. THIS IS AN ELECTRONICALLY VERIFIED FINAL REPORT 02/09/2025 11:43 AM - Electronically signed by Neel Mahoney M.D. AM: AM Report ID: [id number] Reading Location: [id number] [facility] IMG CT PROCEDURES Final Resu lt * Urinalysis reflex to microscopic and culture Urine (02/09/2025 11:15 AM CDT) Color, ur Yellow Yellow Clarity, ur Clear Clear [facility] ([place]) Specific gravity, ur 1.014 1.003 - 1.030 [facility] ([place]) pH, urine 7.5 [facility] ([place]) Comment: Interpretive Data U rine pH is affected by diet, medications, systemic acid-base disturbances, and renal tubular function. pH may affect urinary stone formation. For example, urine pH below 6.0 may help reduce the tendency for calcium phosphate stones and pH greater than 6.0 may reduce the tendency for uric acid stone formation. Source: [facility] Current Interpretive Data was last revised on 2017 Protein, ur ql Negative Negative [facility] ([place]) Glucose, ur ql Negative Negative [facility] ([place]) Ketones, ur Negative Negative [facility] ([place]) Bilirubin, ur Negative Negative [facility] ([place]) Blood, ur Negative Negative [facility] ([place]) Urobilinogen, ur <2.0 <2.0 mg/dL [facility] ([place]) Nitrite, ur Negative Negative [facility] ([place]) Leukocyte esterase, ur Negative Negative [facility] ([place]) UA reflex comment Reflex conditions for microscopic UA and culture not met. [facility] Urine 02/09/2025 11:1 5 AM CDT 02/09/2025 11:27 AM CDT [facility] MICROBIOLOGY - GENERAL O RDERABLES Final Result [facility] ([place]) [address] [facility] [place] [address] * (ABNORMAL) Drugs of Abuse Screen, Urine without Confirmation (02/09/2025 11:15 AM CDT) Amphetamine, ur Not Detected CutOff 500ng/mL [facility] ([place]) Comment: Interpretive Data - Amphetamines: Samples containing greater than 500 ng/mL d-methamphetamine or other cross-reacting amphetamine compounds are reported as positive. Amphetamine immunoassays are subject to significant false positive rates due to cross-reactivity of non-amphetamine drugs. Confirmatory testing required for definitive results. Current Interpretive Data was last reviewed 2022. Barbiturates, ur Not Detected CutOff 200ng/mL [facility] ([place]) Comment: Interpretive Data - Barbiturates: Samples containing greater than 200 ng/mL secobarbital or other cross-reacting barbiturate compounds are reported as positive. False positive and false negative results are possible. Confirmatory testing required for definitive results. Current Interpretive Data was last reviewed 2022. Benzodiazepines, ur Screen Positive, presumptive (A) CutOff 100ng/mL [facility] ([place]) Comment: Interpretive Data - Benzodiazepines: Samples containing greater than 100 ng/mL nordiazepam or other cross-reacting compounds are reported as positive. False positive and false negative results are possible. Confirmatory testing required for definitive results. Current Interpretive Data was last reviewed 2022. Cannabinoids, ur Screen Positive, presumptive (A) CutOff 50 ng/mL [facility] ([place]) Comment: Interpretive Data - Cannabinoids: Samples containing greater than 50 ng/mL delta-9 THC -COOH or other cross- reacting compounds are reported as positive. False positive and false negative results are possible. Confirmatory testing required for definitive results. Current Interpretive Data was last reviewed 2022. Cocaine, ur Not Detected CutOff 150ng/mL [facility] ([place]) Comment: Interpretive Data - Cocaine: Samples containing greater than 150 ng/mL benzoylecgonine or other cross- reacting compounds are reported as positive. False positive and false negative results are possible. Confirmatory testing required for definitive results. Current Interpretive Data was last reviewed 2022. Fentanyl, Ur Not Detected CutOff 5 ng/mL [facility] ([place]) Comment: Interpretive Data - Fentanyl: Samples containing greater than 5 ng/mL norfentanyl, fentanyl, or other cross-reacting fentanyl compounds are reported as positive. False positive and false negative results are possible. Confirmatory testing required for definitive results. Current Interpretive Data was last reviewed 2023. Methadone, ur Not Detected CutOff 300ng/mL [facility] ([place]) Comment: Interpretive Data - Methadone: Samples containing greater than 300 ng/mL d,l-methadone or other cross-reacting compounds are reported as positive. False positive and false negative results are possible. Confirmatory testing required for definitive results. Current Interpretive Data was last reviewed 2022. Opiates, ur Not Detected CutOff 300ng/mL [facility] ([place]) Comment: Interpretive Data - Opiates: Samples containing greater than 300 ng/mL morphine or other cross-reacting compounds are reported as positive. False positive and false negative results are possible. Confirmatory testing required for definitive results. Current Interpretive Data was last reviewed 2022. Oxycodone, ur NOT DETECTED CutOff 100ng/mL [facility] ([place]) Comment: Interpretive Data - Oxycodone: Samples containing greater than 100 ng/mL oxycodone or other cross-reacting compounds are reported as positive. False positive and false negative results are possible. Confirmatory testing required for definitive results. Current Interpretive Data was last reviewed 2022. Phencyclidine, ur Not Detected CutOff 25 ng/mL [facility] ([place]) Comment: Interpretive Data - Phencyclidine: Samples containing greater than 25 ng/mL phencyclidine or other cross-reacting compounds are reported as positive. False positive and false negative results are possible. Confirmatory testing required for definitive results. Current Interpretive Data was last reviewed 2022. Urine Creatinine 62 mg/dL [facility] ([place]) Comment: Interpretive Data Urine Creatinine: < 10 mg/dL is extremely dilute = or > 10 but < 20 mg/dL is dilute = or > 20 mg/dL is normal Current Interpretive Data was last revised on 2017. Urine 02/09/2025 11:1 5 AM CDT 02/09/2025 11:27 AM CDT Narrative [facility] ([place]) - 02/09/2025 12:00 PM CDT Drug of Abuse screening is performed by immunoassay for medical purposes only. This is not to be used for Pain Management purposes. us [facility] URINE ORDERABLES Final R esult [facility] ([place]) [address] [facility] [place] [address] * XR Shoulder Left 2 or More Views (02/09/2025 11:13 AM CDT) Anatomical Region Laterality Modality Upper Extremities, Shoulder Left Comp uted Radiography 02/09/2025 11:2 8 AM CDT Narrative 02/09/2025 11:31 AM CDT EXAM DESCRIPTION: XR SHOULDER LEFT 2 OR MORE VIEWS REASON FOR STUDY: Blanked out and fell. Hit head and left shoulder Pt blanked out and fell hitting head and left shoulder Pt to ED via POV. Pt reports that she is having increased anxiety over the last week and has been having multiple episodes over the last 1 week that last around 30 seconds and her body stiffens up. Pt reports 5 episodes today. Pt reports she feels as if she is having a panic attack. TECHNIQUE: 4 radiographic view(s) of the left shoulder . COMPARISON: 07/19/2024 FINDINGS: No acute fracture or dislocation. The joint spaces are maintained. The soft tissues are unremarkable. IMPRESSION: No acute osseous abnormality. THIS IS AN ELECTRONICALLY VERIFIED FINAL REPORT 02/09/2025 11:31 AM - Electronically signed by Jose De Jesus Cardona M.D. KR: NETO Report ID: [id number] Reading Location: [id number] Procedure Note Jose De Jesus Cardona MD - 02/09/2025 EXAM DESCRIPTION: XR SHOULDER LEFT 2 OR MORE VIEWS REASON FOR STUDY: Blanked out and fell. Hit head and left shoulder Pt blanked out and fell hitting head and left shoulder Pt to ED via POV.Pt reports that she is having increased anxiety over the last week and hasbeen having multiple episodes over the last 1 week that last around 30 secondsand her body stiffens up. Pt reports 5 episodes today. Pt reports she feels sumeet she is having a panic attack. TECHNIQUE: 4 radiographic view(s) of the left shoulder . COMPARISON: 07/19/2024 FINDINGS: No acute fracture or dislocation. The joint spaces are maintained. Thesoft tissues are unremarkable. IMPRESSION: No acute osseous abnormality. THIS IS AN ELECTRONICALLY VERIFIED FINAL REPORT 02/09/2025 11:31 AM - Electronically signed by Jose De Jesus Cardona M.D. KR: NETO Report ID: [id number] Reading Location: [id number] Benigno ARVIZU IMG XR PROCEDURES Final Resu lt * ECG 12 lead (02/09/2025 10:59 AM CDT) 02/09/2025 10:5 9 AM CDT Narrative [facility] - 02/10/2025 12:06 PM CDT Vent Rate: 129 bpm RR Interval: 464 msec NV Interval: 148 msec QRS Duration: 97 msec QT Interval: 313 msec QTC Interval: 389 msec P-R-T [place]: 81 - 86 - 50 degrees IMPRESSION: SINUS TACHYCARDIA ABNORMAL RHYTHM ECG Electronically Signed By: Fran Valdivia MD Benigno ARVIZU ECG ORDERABLES Final Result [facility] * eGFR (02/09/2025 10:45 AM CDT) eGFR >90 >=60 mL/min/1. 73 m2 Comment: Interpretive Data Reference Interval Normal >/= 90 mL/min/1.73m2 Mildly decreased* 60 - 89 mL/min/1.73m2 Mildly to moderately decreased 45 - 59 mL/min/1.73m2 Moderately to severely decreased 30 - 44 mL/min/1.73m2 Severely decreased 15 - 29 mL/min/1.73m2 Kidney Failure < 15 mL/min/1.73m2 *Relative to young adult level Estimated glomerular filtration rate is determined by the 2020 CKD-EPI equation recommended by the National Kidney Foundation (A Unifying Approach to GFR Estimation: Recommendations of the NKF-ASK Task Force on Reassessing the Inclusion of Race in Diagnosing Kidney Disease, JASN 202). The CKD-EPI equation should not be used for patients with unstable renal function and has not been validated in children and those over 70. Current interpretive data was last reviewed 2021. Blood 02/09/2025 10:4 5 AM CDT 02/09/2025 10:52 AM CDT us Benigno ARVIZU LAB BLOOD ORDERABLES Final R esult BRETT M[facility] ([place]) 1 [facility] [place] [address] * Differential, auto (02/09/2025 10:45 AM CDT) Neutrophil abs 2.52 1.50 - 6.50 K/cumm Imm gran abs 0.01 0.00 - 0.10 K/cumm [facility] ([place]) Lymphocyte abs 2.00 0.80 - 3.30 K/cumm [facility] ([place]) Monocyte abs 0.58 0.20 - 0.80 K/cumm [facility] ([place]) Eosinophil abs 0.08 0.00 - 0.50 K/cumm [facility] ([place]) Basophil abs 0.03 0.00 - 0.10 K/cumm [facility] ([place]) Neutrophil pct 48.3 % [facility] ([place]) Comment: Interpretive Data Percent cell count reference ranges are not reported, since discordance with absolute values may lead to misinterpretation of CBC data. Current Interpretive Data was last revised on 2017. Imm gran pct 0.2 % [facility] ([place]) Comment: Interpretive Data Percent cell count reference ranges are not reported, since discordance with absolute values may lead to misinterpretation of CBC data. Current Interpretive Data was last revised on 2017. Lymphocyte pct 38.3 % [facility] ([place]) Comment: Interpretive Data Percent cell count reference ranges are not reported, since discordance with absolute values may lead to misinterpretation of CBC data. Current Interpretive Data was last revised on 2017. Monocyte pct 11.1 % [facility] ([place]) Comment: Interpretive Data Percent cell count reference ranges are not reported, since discordance with absolute values may lead to misinterpretation of CBC data. Current Interpretive Data was last revised on 2017. Eosinophil pct 1.5 % [facility] ([place]) Comment: Interpretive Data Percent cell count reference ranges are not reported, since discordance with absolute values may lead to misinterpretation of CBC data. Current Interpretive Data was last revised on 2017. Basophil pct 0.6 % [facility] ([place]) Comment: Interpretive Data Percent cell count reference ranges are not reported, since discordance with absolute values may lead to misinterpretation of CBC data. Current Interpretive Data was last revised on 2017. Blood 02/09/2025 10:4 5 AM CDT 02/09/2025 10:52 AM CDT us Benigno ARVIZU LAB BLOOD ORDERABLES Final R esult [facility] ([place]) 1 [facility] Department of Laboratories [place], [place] [id number] * (ABNORMAL) CBC with auto differential (02/09/2025 10:45 AM CDT) WBC 5.22 3.80 - 9.90 K/cumm Hgb 12.5 11.9 - 15.5 g/dL [facility] ([place]) Hct 39.9 35.6 - 45.5 % [facility] ([place]) Plt 403(H) 150 - 400 K/cumm [facility] ([place]) MPV 10.9 9.1 - 12.3 fL [facility] ([place]) RBC 4.57 3.90 - 5.20 M/cumm [facility] ([place]) MCV 87.3 81.3 - 96.4 fL [facility] ([place]) MCH 27.4 27.1 - 33.3 pg [facility] ([place]) MCHC 31.3(L) 32.3 - 35.7 g/dL [facility] ([place]) RDW CV 16.6(H) 11.1 - 14.9 % [facility] ([place]) RDW SD 53.6(H) 35.7 - 48.1 fL [facility] ([place]) NRBC abs 0.00 0.00 - 0.01 K/cumm [facility] ([place]) Blood 02/09/2025 10:4 5 AM CDT 02/09/2025 10:52 AM CDT Benigno ARVIZU LAB BLOOD ORDERABLES Final R esult Performing Organization Address [facility] Co de Phone Number BRETT M[facility] ([place]) 1 [place] [address] * Ethanol (02/09/2025 10:45 AM CDT) Ethanol <10 <=10 mg/dL [facility] ([place]) Comment: Interpretive Data Legal limit of intoxication > or = 80 mg/dL Levels > or = 400 mg/dL are potentially TOXIC. Current interpretive data was last revised on 2018. Blood 02/09/2025 10:4 5 AM CDT 02/09/2025 10:52 AM CDT Benigno ARVIZU LAB BLOOD ORDERABLES Final R esult Performing Organization Address [facility] Co de Phone Number BRETT M[facility] ([place]) 1 [place] [address] * Acetaminophen level (02/09/2025 10:45 AM CDT) Acetaminophen <5 <=5 mcg/mL [facility] ([place]) Comment: Markedly elevated levels of Acetaminophen and it's metabolites may lead to false low test results for cholesterol, HDL, triglycerides and uric acid with the manufacturers test methods used by our lab. Interpretive Data Significant hepatic injury may occur and treatment with n-acetyl cysteine is generally recommended if the acetaminophen level exceeds: 150 mcg/mL at 4 hours after ingestion 75 mcg/mL at 8 hours after ingestion 38 mcg/mL at 12 hours after ingestion 19 mcg/mL at 16 hours after ingestion Consult toxicology or poison control ([phone]) for unknown ingestion time. Current interpretive data was last revised 2023. Blood 02/09/2025 10:4 5 AM CDT 02/09/2025 10:52 AM CDT Benigno ARVIZU LAB BLOOD ORDERABLES Final R esult Performing Organization Address City/[facility]/ZIP Co de Phone Number BRETT MCCOY ([place]) 1 [facility] [place] [address] * Salicylate level (02/09/2025 10:45 AM CDT) Salicylate <5.0 <=5.0 mg/dL [facility] ([place]) Comment: Interpretive Data Toxic: 30 mg/dL or greater. Current interpretive data was last revised 2023. Blood 02/09/2025 10:4 5 AM CDT 02/09/2025 10:52 AM CDT Benigno ARVIZU LAB BLOOD ORDERABLES Final R esult Performing Organization Address [facility] Co de Phone Number BRETT MCCOY ([place]) 1 [facility] [place] [address] * Comprehensive metabolic panel (02/09/2025 10:45 AM CDT) Sodium 135 135 - 145 mmol/L [facility] ([place]) Potassium, pl 4.6 3.3 - 4.9 mmol/L [facility] ([place]) Chloride 97 97 - 110 mmol/L [facility] ([place] CO2 25 22 - 32 mmol/L [facility] ([place] Anion gap 13 2 - 15 mmol/L [facility] ([place]) BUN 11 6 - 25 mg/dL [facility] ([place]) Creatinine 0.62 0.60 - 1.10 mg/dL [facility] Glucose 91 70 - 199 mg/dL [facility] ([place]) Comment: Interpretive Data Fasting glucose >/= 126 mg/dl is diagnostic for diabetes. Fasting is defined as no caloric intake for at least 8 hours. Fasting glucose between 100 mg/dl to 125 mg/dl is diagnostic of prediabetes. In a patient with classic symptoms of hyperglycemia or hyperglycemic crisis, a random glucose >/= 200 mg/dl is diagnostic for diabetes. In the absence of unequivocal hyperglycemia, results should be confirmed by repeat testing. The classification and Diagnosis of Diabetes Diabetes Care 2021; 46: S19-S40. Current interpretive data was last revised 2022. Calcium 9.9 8.5 - 10.3 mg/dL [facility] ([place]) Bilirubin, total 0.4 0.1 - 1.2 mg/dL [facility] ([place]) Protein, pl 8.1 6.5 - 8.5 g/dL [facility] ([place]) Albumin 4.4 3.5 - 5.0 g/dL [facility] ([place]) Alk phos 75 40 - 130 Units/L [facility] ([place]) ALT 18 7 - 45 Units/L [facility] ([place]) AST 35 10 - 45 Units/L [facility] ([place]) Comment:Hemolysis present. R esults may be affected. Blood 02/09/2025 10:4 5 AM CDT 02/09/2025 10:52 AM CDT us Benigno ARVIZU LAB BLOOD ORDERABLES Final R esult [facility] M[facility] ([place]) 1 [facility] [place] [address] * DEVICE CHECK - REMOTE (01/25/2025 12:05 PM CDT) Anatomical Region Laterality Modality Other Narrative 02/17/2025 2:25 PM CDT [employer] LINQ11 Loop Recorder. Dx; Syncope, Palpitations. DOI 02/11/2022Tanner. [facility] remote f/u. Routine ILR remote. Normal device function. Battery function-good Presenting rhythm: Sinus tachycardia Medications: No anticoagulation or cardiac meds Counters since last scheduled transmission on 12/13/24. --0 Tachy --0 Krish --0 Pause --1 Symptom - symptom report correlates with sinus tachycardia --0 AF See scanned report. [facility] remote f/u 03/07/25. Nestor Romero, RN us Shekhar Garcia MD CV CARDIAC SERVICES PROCE [place] Final Result * TRANSTHORACIC ECHO (TTE) COMPLETE W DOPPLER/CF WO CONTRAST (01/06/2025 12:27 PM CDT) Estimated EF 50 % CONS SCIMAGE EF Mod BP 48 % CONS SCIMAGE Anatomical Region Laterality Modality Ultrasound 01/06/2025 11:1 4 AM CDT Narrative 01/06/2025 12:59 PM CDT [facility] Cardiology [address] [facility] [address], [place] [address] [address] [facility] [address], [place] [address] P:[phone] P:[phone] Echocardiographic Report Patient Name: ANNABELLA GARCIA C : 1975 Study Date: 01/06/2025 11:14:13 AM Sex: F Publication Distributor: Hattie Smith)(CT), [facility] Location: [facility] Provider: SUE SMITH Height(Cm): 178 BSA: 2.11 [...] FINDINGS: Interpretation Site: Exam was interpreted at [facility]. Left Ventricle: Normal left ventricular size. Mild [...] Procedure Note Shekhar Garcia MD - 01/06/2025 [facility] Cardiology [address] [facility] [address] [id number] [address] [facility] [address], [place] [address] P:[phone] P:[phone] Echocardiographic Report Patient Name: ANNABELLA GARCIA C : 1975 Study Date: 01/06/2025 11:14:13 AM Sex: F Publication Distributor: Hattie Smith)(CT), [facility] Location: [facility] Provider: SUE SMITH Height(Cm): 178 BSA: 2.11 [...] FINDINGS: Interpretation Site: Exam was interpreted at [facility]. Left Ventricle: Normal left ventricular size. Mild [...] [facility] remote f/u 01/24/25. Nestor Romero RN us Shekhar Garcia MD CV CARDIAC SERVICES PROCE [facility] Final Result * Diagnostic Mammogram Bilateral W [...] Final Result * COLONOSCOPY (07/20/2020 9:05 AM SUMMER LAW CLERK) Anatomical Region Laterality Modality Other Narrative Procedure [...] The scope was passed under direct vision.The [id number] endoscope was introduced through the anus [...] On: 07/20/2020 9:05 AM Recognized by the [place] [employer] for promoting quality in endoscopy Fausto Delgado MD ENDOSCOPY PROCEDURES Final Re sult from Last 3 Months or Most Recently Relevant to Health Maintenance Insurance [employer] [place] [employer] [place] MED[place] GOLD [facility] AETNA MEDICARE GOLD Advance Directives For more information, please contact: [phone] * Full Code (Latest Code Status on File) Date Activated Date Inactivated Comments 02/10/2025 10:02 AM 02/10/2025 10:56 PM * Full Code Date Activated Date Inactivated Comments 07/20/2020 8:24 AM 07/20/2020 2:42 PM Care Teams Precision Lens Grinder Relationship Specialty Start Date End Date Morena Sprague DO PCP - General Family Medicine 03/13/21 Omar Valenzuela PA [address] [place] [address] [place] [address] Physician Diamond Driller Orthopedic Surgery 09/21/24
--- OUTSIDE RECORDS SUMMARY | 2025-02-22 07:30 | XMS_ITS | Clinical Summary ---
Author Organization [facility] [employer] Address [address] [facility] [place] [address] Care Team Providers Care Production Designer Name Role Phone Geovanny Mayberry MD Primary Care Provider [phone] Geovanny Mayberry MD Unavailable [phone] [facility],non-owned Affiliates and Associated Physician Practices is amultiple site organization consisting of ambulatory clinics and hospital sitesin [place], [place], [place] and [place]. This disclosure is being madepursuant to the Care Everywhere program and may not contain all information available regarding this patient. Last updated 18.[facility] Allergies Active Allergy Reactions Criticality Noted [...] with food Active vitamin D, ergocalciferol, (DRISDOL) 46386 UNITS capsule Take 50,000 Units by mouth every 30 days Active fluticasone propionate (FLONASE) 50 MCG/ACT nasal sprayIndication s:Acute maxillary sinusitis, recurrence not specified [place] 2 sprays into each nostril once daily [...] Comments Blood Pressure 118/80 03/18/2017 4:08 PM NURSES EDUCATOR Pulse 86 03/18/2017 4:08 PM NURSES EDUCATOR Temperature 37.1 C (98.7 F) 03/18/2017 4:08 PM NURSES EDUCATOR Respiratory Rate 16 03/18/2017 4:08 PM NURSES EDUCATOR Oxygen Saturation 98% 03/18/2017 4:08 PM NURSES EDUCATOR Inhaled Oxygen Concentration - - Weight 120.2 kg (265 lb) 03/18/2017 4:08 PM NURSES EDUCATOR Height 175.3 cm (5' 9) 03/18/2017 4:08 PM NURSES EDUCATOR Body Mass Index 39.13 03/18/2017 4:08 PM NURSES EDUCATOR Plan of Treatment Health Maintenance Due Date [...] age to complete this topic Insurance [facility] Address: [place] [address] ANTHEM ANTHEM AETNA MEDICARE ADV Care Teams Production Designer Relationship Specialty Start Date End Date Geovanny Mayberry MD [address] [place] [address] PCP - General 09/30/18 Geovanny Mayberry MD [address] [place] [id number] Family Medicine 09/30/18
== END 2025-02-22 07:23 | disposition home or self-care (01) ==
LOC: ANHFOHIMG 07:25
PROVIDERS: PCP Family Medicine; Visit Provider Obstetrics & Gynecology
DX: Z12.31 Encounter for screening mammogram for malignant neoplasm of breast (principal)
CPT/HCPCS: 77063; 77067

== ENCOUNTER 2025-02-25 08:01 | Outpatient (CLI) | payer BC, MEDICARE, SELFPAY ==
--- OUTSIDE RECORDS SUMMARY | 2025-01-31 04:45 | XMS_ITS ---
Author Organization [facility] [employer] Address [address] [place] [address] Care Team Providers Care Conference Manager Name Role Phone Morena Sprague DO Primary Care Provider UnavailAaron Luciano Unavailable [phone] REASON FOR VISIT Follow Up Medications Medication SIG (Take, Route, Frequency, Duration) Notes Start Date End Date Status sulfaSALAzine 500 MG Tablet Delayed Release Oral 09/24/2023 Active OptiChamber Cher SPACER (EA) MISCELLANEOUS 09/24/2023 Active Triamcinolone Acetonide 0.1% Cream External 09/24/2023 Active BUDESONIDE-FORMOTERO L HFA 80 MCG-4.5 MCG/ACTUATION AEROSOL INHALER *Reorder from [employer] for eRx and Interaction Alerts* 09/24/2023 Active Methocarbamol 500 MG Tablet Oral 09/24/2023 Active ZEPBOUND 2.5 MG/0.5 ML SUBCUTANEOUS PEN INJECTOR *Reorder from [employer] for eRx and Interaction Alerts* 09/24/2023 Active Gabapentin 600 MG Tablet Oral 09/24/2023 Active Multivitamin - Tablet 1 tablet Orally Once a day Active Famotidine 40 MG Tablet Oral 09/24/2023 Active Depakote ER 500 MG Tablet Extended Release 24 Hour Oral 09/24/2023 Active Doxepin HCl 10 MG Capsule 1 capsule at bedtime Oral Once a day; Duration: 90 days 01/31/2025 Active Vitamin B Complex - Tablet as directed Orally Active Vitamin D 25 MCG (1000 UT) Tablet 1 tablet Orally Once a day Active DULoxetine HCl 60 MG Capsule Delayed Release Particles 1 capsule Oral twice a day; Duration: 90 days 01/31/2025 Active Doxepin HCl 10 MG Capsule TAKE 1 CAPSULE BY MOUTH EVERYDAY AT BEDTIME; Duration: 90 Active rOPINIRole HCl 1 MG Tablet 1 tablet Oral twice a day; Duration: 90 days 01/31/2025 Active Acetaminophen-Codein e 300-60 MG Tablet Oral; Duration: 21 Days Active Acetaminophen-Codein e 300-60 MG Tablet TAKE 1 TABLET BY MOUTH TWICE A DAY NEEDED Oral; Duration: 21 Days Active Divalproex Sodium ER 500 MG Tablet Extended Release 24 Hour TAKE 1 TABLET TWICE A DAY BY ORAL ROUTE FOR 90 DAYS.; Duration: 90 Active rOPINIRole HCl 1 MG Tablet TAKE 1 TABLET BY MOUTH TWICE A DAY; Duration: 90 Active Social History Sex Assigned At : Social History Observation Description Sex Assigned At Female Encounters Encounter Location Date Provider Diagnosis [facility] [employer] [facility] [address] [address] 01/31/2025 Aaron Pop Generalized anxiety disorder F41.1 ; Major depressive disorder, recurrent, mild F33.0 ; Other insomnia G47.09 and Restless legs syndrome G25.81 Assessments Encounter Date Diagnosis (ICD Code) Assessment Notes Treatment Notes Treatment Clinical Notes Section Notes 01/31/2025 Generalized anxiety disorder (ICD-10 - F41.1) stable 01/31/2025 Major depressive disorder, recurrent, mild (ICD-10 - F33.0) 01/31/2025 Other insomnia (ICD-10 - G47.09) Doxepin 10mg hs 01/31/2025 Restless legs syndrome (ICD-10 - G25.81) ropinirole 1mg hs Plan Of Treatment Medication Medication Name Sig Start Date Stop Date Notes ARIPiprazole 2 MG Tablet 1 tablet Orally Once a day; Duration: 30 days 01/31/2025 Doxepin HCl 10 MG Capsule 1 capsule at b edtime Oral Once a day; Duration: 90 days 01/31/2025 DULoxetine HCl 60 MG Capsule Delayed Release Particles 1 capsule Oral twice a day; Duration: 90 days 01/31/2025 rOPINIRole HCl 1 MG Tablet 1 tablet Oral twice a day; Duration: 90 days 01/31/2025 Treatment Notes Assessment Notes Generalized anxiety disorder stable Other insomnia Doxepin 10mg hs Restless legs syndrome ropinirole 1mg hs Next Appt Details Follow Up: 4 Weeks, Reason: f/u anxiety, abilify discontinuation Provider Name:Aaron wood, 03/07/2025 09:30:00 AM, [address], [facility] [address], [place], [address], History and Physical Notes * HPI (History of Present Illness) Category Sub-Category Detail Notes Category Not es History of Presenting Problem Sleep disturbance Pain disturbing sleep: some days wake up with pain Prescribed sleep medications: currently taking medication to help sleep; tried belsomra, dayvigo, lunesta, ramelteon, trazodone no longer uses CPAP since losing weight Lili/Hypomania excessive spending Past Psychiatric Medications Lunesta, divalproex, zaleplon, ramelteon, armodafinil, Rozerem, trazodone, Examination Category Sub-Category Detail Notes Category Not es Psychiatry Appearance: well-groomed, well-nourished , ... Attitude: cooperative Psychomotor activity: within normal rang e Attention: good Degree of awareness of surroundings: wit hin normal limits Orientation: awake, alert and constantine ented x 3 Affect / mood: appropriate, full ra nge Speech / language: appropriate pitch/mo dulation, clear and coherent, normal rate, volume, and articulation (RVR), proper grammar used Insight: good Judgement: good Thought process: intact Thought content: appropriate Perceptual disorders: no perceptual diso rder noted Suicidal ideation: none Intellectual functioning: no impairment noted Memory status: no impairment noted Delusions: no Hallucinations: no Progress Notes * ANNABELLA GARCIADOB:[birth year] (50 yo F)Acc No.[id number]:01/31/2025 Patient: VON LAZCANOAH Provider: TIFFANI RAZO :1975 A ge:49 Y S ex:Female Date:01/31/2025 Address:[facility] [address] [facility] Pcp:Morena Sprague DO Check In:09:52 AM CSTCheck O ut:10: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 [place] ___x___patient is seen at HOME Pt is seen at other than Home the session was conducted via a HIPAA-compliance audio/visual platform. Sleep disturbance P ain disturbing sleep: s ome days wake up with pain P rescribed sleep medications: c urrently taking medication to help sleep; tried belsomra, dayvigo, lunesta, ramelteon, trazodone n o longer uses CPAP since losing weight. Lili/Hypomania e xcessive spending. P ast Psychiatric Medications: Lunesta, divalproex, zaleplon, ramelteon, armodafinil, Rozerem, trazodone,. * Medications: T akingrOPINIRole HCl 1 MG Tablet 1 tablet Oral twice a day DULoxetine HCl 60 MG Capsule Delayed Release Particles 1 capsule Oral twice a day Doxepin HCl 10 MG Capsule 1 capsule at bedtime Oral Once a day Vitamin D 25 MCG (1000 UT) Tablet 1 tablet Orally Once a day Vitamin B Complex - Tablet as directed Orally Multivitamin - Tablet 1 tablet Orally Once a day Gabapentin 600 MG Tablet Oral ZEPBOUND 2.5 MG/0.5 ML SUBCUTANEOUS PEN INJECTOR , Notes to Pharmacist: *Reorder from [employer] for eRx and Interaction Alerts*Depakote ER 500 MG Tablet Extended Release 24 Hour Oral Famotidine 40 MG Tablet Oral Methocarbamol 500 MG Tablet Oral BUDESONIDE- FORMOTEROL HFA 80 MCG-4.5 MCG/ACTUATION AEROSOL INHALER , Notes to Pharmacist: *Reorder from [employer] for eRx and Interaction Alerts*Triamcinolone Acetonide 0.1% Cream External OptiChamber Cher SPACER (EA) MISCELLANEOUS sulfaSALAzine 500 MG Tablet Delayed Release Oral rOPINIRole HCl 1 MG Tablet TAKE 1 TABLET BY MOUTH TWICE A DAY Divalproex Sodium ER 500 MG Tablet Extended Release 24 Hour TAKE 1 TABLET TWICE A DAY BY ORAL ROUTE FOR 90 DAYS. Doxepin HCl 10 MG Capsule TAKE 1 CAPSULE BY MOUTH EVERYDAY AT BEDTIME Acetaminophen-Codeine 300-60 MG Tablet TAKE 1 TABLET BY MOUTH TWICE A DAY NEEDED Oral Acetaminophen-Codeine 300-60 MG Tablet Oral ARIPiprazole 2 MG Tablet 1 tablet Orally Once a day , Notes to Pharmacist: dose decreaseTaking rOPINIRole HCl 1 MG Tablet 1 tablet Oral twice a day Taking DULoxetine HCl 60 MG Capsule Delayed Release Particles 1 capsule Oral twice a day Taking Doxepin HCl 10 MG Capsule 1 capsule at bedtime Oral Once a day Taking Vitamin D 25 MCG (1000 UT) Tablet 1 tablet Orally Once a day Taking Vitamin B Complex - Tablet as directed Orally Taking Multivitamin - Tablet 1 tablet Orally Once a day Taking Gabapentin 600 MG Tablet Oral Taking ZEPBOUND 2.5 MG/0.5 ML SUBCUTANEOUS PEN INJECTOR , Notes to Pharmacist: *[facility] for eRx and Interaction Alerts*Taking Depakote ER 500 MG Tablet Extended Release 24 Hour Oral Taking Famotidine 40 MG Tablet Oral Taking Methocarbamol 500 MG Tablet Oral Taking BUDESONIDE-FORMOTEROL HFA 80 MCG-4.5 MCG/ACTUATION AEROSOL INHALER , Notes to Pharmacist: *Reorder from [facility] for eRx and Interaction Alerts*Taking Triamcinolone Acetonide 0.1% Cream External Taking OptiChamber Cher SPACER (EA) MISCELLANEOUS Taking sulfaSALAzine 500 MG Tablet Delayed Release Oral Taking rOPINIRole HCl 1 MG Tablet TAKE 1 TABLET BY MOUTH TWICE A DAY Taking Divalproex Sodium ER 500 MG Tablet Extended Release 24 Hour TAKE 1 TABLET TWICE A DAY BY ORAL ROUTE FOR 90 DAYS. Taking Doxepin HCl 10 MG Capsule TAKE 1 CAPSULE BY MOUTH EVERYDAY AT BEDTIME Taking Acetaminophen-Codeine 300-60 MG Tablet TAKE 1 TABLET BY MOUTH TWICE A DAY NEEDED Oral Taking Acetaminophen-Codeine 300-60 MG Tablet Oral Taking ARIPiprazole 2 MG Tablet 1 tablet Orally Once a day , Notes to Pharmacist: dose decreaseDiscontinuedARIPiprazole 5 MG Tablet 1 tablet Orally Once a day , Notes to Pharmacist: dose decreaseMedication List reviewed and reconciled with the patientDiscontinued ARIPiprazole 5 MG Tablet 1 tablet Orally Once a day , Notes to Pharmacist: dose decreaseMedication List reviewed and reconciled with the patient Objective: * Examination: P sychiatry: Appearance: w ell-groomed, well-nourished, .... Affect / mood: a ppropriate, full range. Attention: g ood. Attitude: c ooperative. Suicidal ideation: n one. Memory status: n o impairment noted. Degree of awareness of surroundings: w ithin normal limits.? Delusions: n o. Hallucinations: n o. Insight: g ood. Intellectual functioning: n o impairment noted. Judgement: g ood. Orientation: a wake, alert and oriented x 3. Perceptual disorders: n o perceptual disorder noted. Psychomotor activity: w ithin normal range. Speech / language: a ppropriate pitch/modulation, clear and coherent, normal rate, volume, and articulation (RVR), proper grammar used. Thought content: a ppropriate. Thought process: i ntact. Assessment: * Assessment: 1. G eneralized anxiety [...] 90 days, 180 Capsule, Refills 1; S top ARIPiprazole Tablet, 2 MG, 1 tablet, Orally, Once a day, 30 days, 30 Tablet. 3. O ther insomnia Continue Doxepin HCl Capsule, 10 MG, 1 capsule at bedtime, Oral, Once a day, 90 days, 90, Refills 1. Notes: Doxepin 10mg hs 4. R estless legs syndrome Continue rOPINIRole HCl Tablet, 1 MG, 1 tablet, Oral, twice a day, 90 days, 180 Tablet, Refills 1.? Notes: ropinirole 1mg hs * Follow Up: 4 Weeks (Reason: f/u anxiety, abilify discontinuation) Billing Information: * Visit Code: 02283 OFFICE OUTPATIENT VISIT 25 MINUTES DETAILED HISTORY AND EXAM/MODERATE MEDICAL DECISION MAKING. Modifiers: 95 * Procedure Codes: * Electronic signature of TIFFANI Garcia on 2025 at 08:08 AM CDT Sign off status: Pending * Provider: TIFFANI RAZO Date: 0 01/31/2025 Generated for Vicky interiano/Hernan/Don on: 1 08:08 AM CDT
--- OUTSIDE RECORDS SUMMARY | 2025-02-25 08:07 | XMS_ITS ---
Care Plan - [facility] Created on: 2025 ANNABELLA GARCIA : 1975 Sex: Female Author Organization [facility] Address [address] [place] [address] Phone Care Team Providers Care Automation And Controls Instructor Name Role Phone Unavailable Unavailable Unavailable
--- OUTSIDE RECORDS SUMMARY | 2025-02-25 08:07 | XMS_ITS | Clinical Summary ---
Author Organization [facility] Address [address] [place] [address] Care Team Providers Care Concentrator Operator Name Role Phone Morena Sprague DO Primary Care Provider [phone] Social History Tobacco Use Types Packs/Day Years Used Date Smoking Tobacco: Never Assessed Comments Unknown Sex and Gender Information Value Date Recorded Sex Assigned at Not on file Legal Sex Female 8:35 AM COSMETIC MANAGER Gender Identity Not on file Sexual [...] 5 season) 2025 Influenza Adult (#1) 2025 Hepatitis A Vaccines Aged Out No long er eligible based on patient's age to complete this topic Meningococcal B Vaccine Aged Out No l [...] patient's age to complete this topic Insurance [employer] AETNA MEDICARE Care Teams Concentrator Operator Relationship Specialty Start Date End Date Morena Sprague DO [address] [place] [address] PCP - General FAMILY PRACTICE 06/03/22
--- OUTSIDE RECORDS SUMMARY | 2025-02-25 08:07 | XMS_ITS | Encounter Summary ---
Author Organization [facility] Healthcare Address [address] [place] [address] Care Team Providers Care Billboard Erector Name Role Phone Morena Sprague DO Primary Care Provider [phone] Omar Valenzuela Unavailable [phone] Encounter Details Date Type Department Care Team (Late st Contact Info) Description 07/12/2024 Orders Only [facility] Health Information Management [address] [place] [address] Scanning, Provider Social History Tobacco Use Types [...] on file Legal Sex Female 2:20 AM PROJECT DEVELOPER Gender Identity Female 08/21/2020 9:29 PM CDT Sexual Orientation Straight 08/21/2020 9: 29 PM CDT 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
--- OUTSIDE RECORDS SUMMARY | 2025-02-25 08:07 | XMS_ITS | Clinical Summary ---
Author Organization [facility] Address [address] [place] [address] Phone Care Team Providers Care Slip Operator Name Role Phone PoonamsusiMorena fernandez Primary Care Provider [phone] Medications DULoxetine (CYMBALTA) [address] [...] Insurance [facility] MEDICARE C AETNA Care Teams Slip Operator Relationship Specialty Start Date End Date Morena Sprague DO [address] [place] [address] PCP - General Family Medicine 10/30/22
--- OUTSIDE RECORDS SUMMARY | 2025-02-25 08:07 | XMS_ITS | Encounter Summary ---
Author Organization [facility] Healthcare Address [address] [place] [address] Care Team Providers Care All Terrain Vehicle Racer Name Role Phone Morena Sprague DO Primary Care Provider [phone] Omar Valenzuela PA Unavailable [phone] Encounter Details Date Type Department Care Team (Late st Contact Info) Description 01/07/2025 Results Follow-Up [facility] Medical Group Cardiology [address] [place] [address] Sue Guerrier NP [address] [place] [address] Transthoracic Echo (TTE) Complete W [...] on file Legal Sex Female 2:20 AM STEM FRAZER Gender Identity Female 08/21/2020 9:29 PM CDT Sexual Orientation Straight 08/21/2020 9: 29 PM CDT 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
--- OUTSIDE RECORDS SUMMARY | 2025-02-25 08:08 | XMS_ITS | Patient Health Record ---
Author Organization [facility] Address [address] [place] [address] Care Team Providers Care Furniture Assembler Name Role Phone Morena Sprague DO Primary Care Provider UnavailAaron Luciano Unavailable [phone] Allergies Allergen (clinical drug ingredient) Drug/Non Drug [...] 80 MCG-4.5 MCG/ACTUATION AEROSOL INHALER *Reorder from [employer] for eRx and Interaction Alerts* 09/24/2023 Active Triamcinolone Acetonide 0.1% Cream External 09/24/2023 Active QUEtiapine Fumarate ER 50 MG Tablet Extended Release 24 Hour 1 tablet in the evening Orally Once a day; Duration: 30 days 02/21/2025 Active ZEPBOUND 2.5 MG/0.5 ML SUBCUTANEOUS PEN INJECTOR *Reorder from [employer] for eRx and Interaction Alerts* 09/24/2023 Active [...] 02/09/2017 Administered MMR Unknown 03/06/2016 Administered Novel [id number]-[id number], preservative free Unknown 02/10/2020 Administered Pfizer Biontech [...] Risk Notes Problem Mild recurrent major depression (74708308) Major depressive disorder, recurrent, mild (F33.0) Active confirmed Problem Generalized anxiety disorder (85231314) Generalized anxiety disorder (F41.1) Active confirmed Problem Restless legs syndrome (65281232) Restless legs syndrome (G25.81) Active confirmed Problem Insomnia (612060324) Other insomnia (G47.09) Active confirmed Vital Signs Height-cm 175.26 cm 06/16/2024 Height 69.00 in 06/16/2024 Encounters Encounter Location Date Provider Diagnosis [facility] [address] [address] 01/31/2025 Aaron Pop Generalized anxiety disorder F41.1 ; Major depressive disorder, recurrent, mild F33.0 ; Other insomnia G47.09 and Restless legs syndrome G25.81 [facility] [address] [address] 06/16/2024 Aaron Pop Generalized anxiety disorder F41.1 ; Major depressive disorder, recurrent, mild F33.0 ; Other insomnia G47.09 ; Restless legs syndrome G25.81 and Major depressive disorder, recurrent severe without psychotic features 296.33 [facility] [address] [facility] [address] [place] [address] 10/19/2024 Aaron Pop Generalized anxiety disorder F41.1 ; Major depressive disorder, recurrent, mild F33.0 ; Other insomnia G47.09 ; Restless legs syndrome G25.81 and Major depressive disorder, recurrent severe without psychotic features 296.33 [facility], [facility] [address] [place] [address] 11/23/2024 Aaron Pop Generalized anxiety disorder F41.1 ; Major depressive disorder, recurrent, mild F33.0 ; Other insomnia G47.09 and Restless legs syndrome G25.81 [facility], [facility] [address] [place] [address] 12/29/2024 Aaron Pop Generalized anxiety disorder F41.1 ; Major depressive disorder, recurrent, mild F33.0 ; Other insomnia G47.09 and Restless legs syndrome G25.81 [facility], [facility] [address] [place] [address] 02/09/2025 Aaron Pop Generalized anxiety disorder F41.1 ; Major depressive disorder, recurrent, mild F33.0 ; Other insomnia G47.09 and Restless legs syndrome G25.81 [facility], [facility] [address] [place] [address] 03/19/2024 Aaron Pop Major depressive disorder, recurrent, mild F33.0 [facility], [facility] [address] [place] [address] 03/19/[address] [facility], [facility] [address] [place] [address] 02/15/[address] [facility], [facility] [address] [place] [address] 02/17/2025 Aaron Pop Major depressive disorder, recurrent, mild F33.0 [facility], [facility] [address] [place] [address] 02/04/2025 Aaron Opp Generalized anxiety disorder F41.1 [facility], [facility] [address] [place] [address] 02/11/[address] [facility], [facility] [address] [place] [address] 02/11/2025 Aaron Pop Major depressive disorder, recurrent, mild F33.0 [facility], [facility] [address] [place] [address] 02/11/2025 Aaron Pop Generalized anxiety disorder F41.1 [...] for 90 days. - Send prescriptions to [facility] pharmacy. Follow-up: - Schedule a follow-up appointment in 4 months. - Patient will schedule the appointment through the [employer] maura. - Encourage the patient to reach [...] is currently under the care of a landscape painter and is taking Tylenol 4 for pain control. Additionally, steps are being taken to obtain a medical marijuana card for potential pain management. Plan: - Continue current pain management regimen: - Tylenol 4 - gabapentin - duloxetine - Follow up with landscape painter as scheduled - Proceed with obtaining [...] 03/07/2025 09:30:00 AM, [address], [facility] [address], [place], [address], Insurance Providers Payer Name Payer Address Payer Phone Subscriber Number Group Number Insured Name Patient Relationship to Insured Coverage Start Date Coverage End Date Aet[employer] [address] [place] [phone] [id number] BOHNEANNABELLA ARAUZ Self - patient is the insured [employer]-[place] Ppo [address] [place] [address] [id number] ANNABELLA MUKHERJEE Spouse - patient is the spouse of the insured Medical (General) History Medical History History ICD Code Imported from [employer]: Th e patient has been under consistent monitoring and treatment from September to November 2023 for palpitations, syncope and collapse, and status post placement of an implantable loop recorder. These conditions were addressed during multiple ancillary procedures and orders by Dr. Shekhar Garcia at [facility] and through telephone consultations. The patient also had an office visit and telephone check-up with SIOMARA Nelson at [facility], for iron deficiency anemia, thrombocytosis, and B12 deficiency. External device data was also collected multiple times by Provider Abstract at [facility]. The patient's conditions have been managed through a combination of in-person visits, telephone consultations, and remote monitoring. Imported from [employer]: On 12/16/2022, the patient was seen by [...] Surgical History Surgery Date(Month/Year) Removal of gallbladder (62680) 5 Endometrial ablation (429271375) 009 Endometrial ablation (14355) 05/12/2014 Hysterectomy (97351) 10/14/2018 Total knee replacement (035559381) left 03/16/2020 Breast surgery (40816) 04/20/2019
--- OUTSIDE RECORDS SUMMARY | 2025-02-25 08:08 | XMS_ITS | Encounter Summary ---
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
--- OUTSIDE RECORDS SUMMARY | 2025-02-25 08:08 | XMS_ITS | Data Portability ---
Author Organization [place] [facility] [employer] Main Office Address [address] [place] [address] Care Team Providers Care Buffing Wheel Former Automatic Name Role Phone ARON BELLA Primary Care Provider ARON BELLA Referring Provider [phone] Assessment Encounter Date Assessment Date Assessment LastModified [...] more than half the time spent in eumz-cf-klnp care for Not available 12/18/2022 14:50:54 Plan of Treatment Reminders Order Date Submit Date Provider Last Modified By Organization Details Last Modified Time Details Appointments None record ed. Lab None record ed. Referral None record ed. Procedures None record ed. Surgeries None record ed. Imaging XR, knee 023 12/17/19 23 [facility] [place], [address], [place], [address], 3 17:06:43 Medication Orders None record ed. Patient TargetsNo targets recorded. Patient InstructionsNo instructions recorded. Reason for Referral None Reported. Results Created Date Observation Date Name Description Value Unit Range Abnormal Flag Note LastModifiedBy Organization Detail LastModifiedTime 12/17/19 23 XR, knee No observ ation record ed. [facility] [place] [address], [place], [address], 12/18/2022 14:44:46 Result Notes None recorded. Problems Name Problem SNOMED Code Status Onset Date Resolution Date Notes Provider Name and Address Organization Details Recorded Time History of left total knee replacemen t 0775275127162 105 Active 2019 Not Available [facility] 3 13:52:22 History of total knee arthroplas ty 8291447101005 Active 2020 Not Available [facility] 3 13:52:22 Pain of bilateral knee joints 8635349736650 04 Active 2022 SANIA Haro, [place] [employer] [facility] 3 15:55:54 Problem Notes None recorded. Medical Equipment None Reported. Allergies Allergen ID Allergen Name Allergen Category Reaction Reaction Severity Criticality Documentation Date Start Date Code Code System Note Provider Name and Address Organization Details Recorded Time 77505 Product containin g penicilli n (product) medicatio n Not available Not available Not available 07/10/2022 61999 8001 SNOMED Not Available [facility] 3 13:53:24 66577 ibuprofen medicatio n Not available Not available Not available 07/10/2022 5640 RxNorm Not Available [facility] 3 13:53:24 Medications Name Sig Start Date [...] administ ered by the provider 12/16 completed [facility]: [id number] 08-29 Not Available Not Available Not [...] office by the doctor 12/16 completed NDC: 13350944 001 Not Available Not Available Not Available [...] Updated DateTime 12/16/2022 172.72 cm 48.2 kg/m2 327174.78 g Shelbi SANIA Watson [place] - [facility] 12/16/2022 16:13:26 Social History None recorded. Functional Status None recorded. Mental Status None recorded. Family History Nothing Reported. Medical History No medical history recorded. Gynecological HistoryNo gynecological history recorded. Obstetrics History GPAL:G 0 P 0 0 0 0 Past Encounters Encounter ID Performer Location Encounter Start Date Encounter Closed Date Diagnosis/Indication Diagnosis SNOMED-CT Code Diagnosis ICD10 Code Diagnosis IMO Codes Diagnosis Note [id number] Jadon Booker MD [facility] [place] [address] [facility] [address] [place] [address] 12/16/2022 15:31:22 12/18/2022 17:06:42 Pain of bilateral knee joints 5048799750 20602 M25.561 M25.562 Health Concerns Section Related Observation LastModified by Organization Detai ls LastModified Time None Recorded Concern Status LastModified by Organization Details LastModified Time None Recorded Advance Directives Directive None Recorded Payers Insurance Date Sequence Insurance Name Policy Number Policy Kaiser Covered Member ID Kaiser Member ID Guarantor Name 12/23/2022 1 [place] [id number] Valerio Lieberman [id number] Corrie Lieberman 12/23/2022 2 AETNA - PRIME (MEDICARE REPLACEMENT /ADVANTAGE - HMO) [id number] Corrie Lieberman [id number] Corrie Lieberman Notes Date Note Type Note [...] all likelihood and he referred her to [facility] and she saw Dr. Clifton who [...] infusion every 8 weeks. Jadon Booker MD [address] [place] [address], [facility] [address], [place], [address], [facility] [employer] 12/24/2022 18:51:51 OBGyn Episode No OBEpisode recorded.
--- OUTSIDE RECORDS SUMMARY | 2025-02-25 08:08 | XMS_ITS | Clinical Summary ---
Author Organization [facility] Radha Mcbride Address [address] [place] [address] Care Team Providers Care Fishing Hand Name Role Phone Morena Sprague Primary Care Provider [phone] Allergies Active Allergy Reactions Criticality Noted Date [...] Description 2025 8:30 AM CDT Office Visit [facility] Oncology and Hematology - Ger 0 Rae Hussein [address] [place] [address] Jeffy Chang MD [address] [facility] [address] [place] [address] Health Maintenance Due Date Last Done [...] Visit- Commercial 05/12/2024 INFLUENZA VACCINE (#1) 2024 0, 02/09/2019, 02/19/2018, [...] VITAMIN B12 336 200 - 1100 pg/mL [facility] Comment: Please Note: Although the reference range for vitamin B12 is 200-1100 pg/mL, it has been reported that between 5 and 10% of patients with values between 200 and 400 pg/mL may experience neuropsychiatric and hematologic abnormalities due to occult B12 deficiency; less than 1% of patients with values above 400 pg/mL will have symptoms. FOLATE, SERUM 14.0 ng/mL [facility] Comment: Reference Range Low: <3.4 Borderline: 3.4-5.4 Normal: >5.4 Test Performed at: [facility] [address] [facility] [place] [address] TeriKirstin Thornton MD Blood 02/19/2025 7:20 AM CDT 02/19/2025 7:20 AM CDT Jeffy Chang MD CHEMISTRY ORDERABLES Final Resu lt Performing Organization Address City/[facility]/ZIP Co de Phone Number [facility] [phone] [facility] [address] [place] [address] * IRON, TIBC, AND PERCENT SATURATION (02/19/2025 7:20 AM CDT) IRON 66 40 - 190 mcg/dL [facility] TIBC 351 250 - 450 mcg/dL (calc) [facility] IRON % SATURATION 19 16 - 45 % (calc) [facility] Comment: Test Performed at: [facility] [address] [place] [address] [facility] Blood 02/19/2025 7:20 AM CDT 02/19/2025 7:20 AM CDT Jeffy Chang MD CHEMISTRY ORDERABLES Final Resu lt [facility] [phone] [facility] [address] [place] [address] * FERRITIN (02/19/2025 7:20 AM CDT) FERRITIN 24 16 - 232 ng/mL [facility] Comment: Test Performed at: [facility] [address] [facility] [place] [address] Teri-Kirstin Thornton MD Blood 02/19/2025 7:20 AM CDT 02/19/2025 7:20 AM CDT Jeffy Chang MD CHEMISTRY ORDERABLES Final Resu lt [facility] [phone] [facility] [address] [facility] [place] [address] from Last 3 Months Insurance [facility] BLUE ACCESS/TRUE BLUE PPO AETNA O [facility] Care Teams Fishing Hand Relationship Specialty Start Date End Date Morena Sprague DO [address] [facility] [address] [place] [address] PCP - General Family Practice 10/22/23
--- OUTSIDE RECORDS SUMMARY | 2025-02-25 08:09 | XMS_ITS ---
Author Organization [facility] Address [address] [place] [address] Phone Care Team Providers Care Inspector Grain Mill Products Name Role Phone Unavailable Unavailable Unavailable Plan of Treatment No Plan of Treatment Recorded Assessments Includes: Assessments for all patient encounters No Assessments Recorded Medical Equipment - Implanted Devices Includes: Current and historical Devices No Medical Equipment Recorded Medications Administered Includes: Administered Medications in patient's chart No Administered Medications Recorded Results Includes: Results from 02/26/2024 through 2025 No Results Recorded For Specified Dates History [...]
--- OUTSIDE RECORDS SUMMARY | 2025-02-25 08:09 | XMS_ITS | Encounter Summary ---
Author Organization [facility] Address [address] [place] [address] Phone Care Team Providers Care Shell Sorter Name Role Phone Geovanny Mayberry Primary Care Provider [phone] Zina Davis MD Primary Care Provider Emelina Singh DPT Unavailable [phone] Morena Sprague DO Primary Care Provider [phone] Omar Valenzuela Unavailable Encounter Details Date Type Department Care Team (Latest Contact Info) Description 10/05/2014 Orders Only [facility]GT Scanning, Provider Social History Tobacco Use Types Packs/Day Years Used Date Smoking Tobacco: Never Assessed Comments Unknown Sex and Gender Information Value Date Recorded Sex Assigned at Not on file 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 Gender Identity Female 08/21/2020 9:29 PM CDT [...] on filedocumented in this encounter Care Teams Shell Sorter Relationship Specialty Start Date End Date Geovanny MayberryRadu [address] [place] [address] PCP - General 08/04/17 03/04/19 Zina Davis MD [address] [place] [address] PCP - General Family Practice 03/05/19 03/12/21 Morena Sprague DO [address] [place] [address] PCP - General Family Medicine 03/13/21 Emelina Singh DPT [address] [place] [address] Physical Therapist Physical Therapy 06/23/19 03/16/20 Omar Valenzuela PA [address] [place] [address] [place] [address] Physician No Bake Molder Orthopedic Surgery 09/21/24 documented as of this encounter
--- OUTSIDE RECORDS SUMMARY | 2025-02-25 08:09 | XMS_ITS | Clinical Summary ---
Author Organization [facility] [employer] Address [address] [facility] [place] [address] Care Team Providers Care Mess Cook Name Role Phone Geovanny Mayberry MD Primary Care Provider Geovanny Mayberry MD Unavailable [phone] Source Comments [facility],non-owned Affiliates and Associated Physician Practices is amultiple site organization consisting of ambulatory clinics and hospital sitesin [place], [place], [place] and [place]. This disclosure is being madepursuant to the Care Everywhere program and may not contain all information available regarding this patient. Last updated 18.[facility] Allergies Active Allergy Reactions Criticality Noted [...] with food Active vitamin D, ergocalciferol, (DRISDOL) 85932 UNITS capsule Take 50,000 Units by mouth every 30 days Active fluticasone propionate (FLONASE) 50 MCG/ACT nasal sprayIndication s:Acute maxillary sinusitis, recurrence not specified [place] 2 sprays into each nostril once daily [...] Comments Blood Pressure 118/80 03/18/2017 4:08 PM COMPLAINT ANALYST Pulse 86 03/18/2017 4:08 PM COMPLAINT ANALYST Temperature 37.1 C (98.7 F) 03/18/2017 4:08 PM COMPLAINT ANALYST Respiratory Rate 16 03/18/2017 4:08 PM COMPLAINT ANALYST Oxygen Saturation 98% 03/18/2017 4:08 PM COMPLAINT ANALYST Inhaled Oxygen Concentration - - Weight 120.2 kg (265 lb) 03/18/2017 4:08 PM COMPLAINT ANALYST Height 175.3 cm (5' 9) 03/18/2017 4:08 PM COMPLAINT ANALYST Body Mass Index 39.13 03/18/2017 4:08 PM COMPLAINT ANALYST Plan of Treatment Health Maintenance Due Date [...] ANTHEM ANTHEM AETNA MEDICARE ADV Care Teams Mess Cook Relationship Specialty Start Date End Date Geovanny Mayberry MD [address] [place] [address] PCP - General 09/30/18 Geovanny Mayberry MD [address] [place] [address] Family Medicine 09/30/18
--- OUTSIDE RECORDS SUMMARY | 2025-02-25 08:09 | XMS_ITS | Clinical Summary ---
Author Organization [facility] Address [address] [place] [address] Care Team Providers Care Varsity Baseball Coach Name Role Phone Morena Sprague DO Primary Care Provider [phone] Omar Valenzuela PA Unavailable [phone] Allergies Active Allergy Reactions Criticality Noted Date [...] day Take morning and nightly 9 and 2099 Active clobetasoL (TEMOVATE) 0.05 % ointment PLEASE SEE ATTACHED FOR DETAILED DIRECTIONS 06/18/19 025 Discontin ued(Dupli nickolas order) doxycycline 100 mg tablet Take 1 tablet/capsule [...] w/r/t gut microbiome. Referred to ADA and [employer] websites for additional information on topics including [...] not improve, I recommend her seeing a settlement technician or CRS. Anxiety and depression 08/04/2017 [...] normal. Assessment & Plan (06/19/2020 3:56 PM BATCHMAKER): She presents with extensive prior workup for [...] reflex an refer to rheumatology here at [facility] for second opinion on her joint issues. We will see her back in clinic after her endoscopies for further evaluation and to make decisions about potential treatments. Encounters Date Type Department Care Team Description 02/11/2025 Documentation [facility] [address] [place] [address] [address] [place] [address] Yazan Browne MD 02/10/2025 10:44 AM CDT - 02/10/2025 6:56 PM CDT Hospital Encounter [facility] [address] [place] [address] King Hernandez MD Nikolic, Jelena, MD Seizure-like activity (HCC) (Primary Dx); Seizure disorder, complex partial (HCC) [G40.209] Discharge Disposition: Left Against Medical Advice 02/09/2025 11:44 AM CDT - 02/09/2025 4:51 PM CDT Emergency [facility] [address] [place] [address] Whit Cao MD Seizure-like activity (HCC) (Primary Dx) Discharge Disposition: Left Against Medical Advice 01/25/2025 10:15 AM CDT Office Visit [facility] [address] [place] [address] [place] [phone] Enrrique Ga MD Pericardial effusion (Primary Dx) 01/24/2025 7:45 AM CDT Ancillary Procedure [facility] [address] [place] [address] [place] [phone] Palpitations (Primary Dx); Syncope and collapse; Status post placement of implantable loop recorder 01/07/2025 Telephone [facility] [address] [place] [address] [place] [phone] Sue Smith NP 01/07/2025 Results Follow-Up [place] [address] [place] [phone] Sue Smith NP Transthoracic Echo (TTE) Complete W Doppler/CF 01/06/2025 11:15 AM CDT Ancillary Procedure [facility] [address] [place] [address] [place] [phone] of the chest 01/06/2025 Telephone [place] [address] [place] [phone] Sue Smith NP 12/13/2024 7:30 AM CDT Ancillary Procedure [facility] [address] [place] [address] [place] [phone] Syncope and collapse; Status post placement of [...] ARTHRP KNE CONDYLE&PLATU MEDIAL&LAT COMPARTMENTS 03/15/2020 Left Dennis - Olga KNEE ARTHROSCOPY ABDOMINAL SURGERY 1994 [...] Brother Nile Hypertension Brother Nile Obesity Brother Niel Substance Abuse Brother Nile overweight Brother Nile [...] on file Legal Sex Female 2:20 AM BATCHMAKER Gender Identity Female 08/21/2020 9:29 PM CDT Sexual Orientation Straight 08/21/2020 9: 29 PM CDT 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 JALEESA: JALEESA Report ID: [id number] Reading Location: [id number] Procedure Note Markos Marmolejo MD - 02/10/2025 EXAM DESCRIPTION: MRI BRAIN WO CONTRAST REASON FOR STUDY: Reported new onset seizures over the past week. Noprovided focal neurologic deficits. No known trauma. No provided past medical or surgical history. TECHNIQUE: Multiplanar imaging includes non-contrasted T1, T2, FLAIR, and diffusion with ADC map sequences. Additional sequence(s) sensitive [employer]. Images stored on PACS. COMPARISON: CT head [...] 3:17 PM - Electronically signed by Markos LAZCANO: JALEESA Report ID: [id number] Reading Location: [id number] King Hernandez MD [facility] MRI PROCEDURES Final Result * CT Head [...] Neel Mahoney M.D. AM: AM Report ID: [id number] Reading Location: [id number] Procedure Note Neel Mahoney MD - 02/09/2025 [...] Neel Mahoney M.D. AM: AM Report ID: [id number] Reading Location: [place] [address] PROCEDURES Final Resu lt * Urinalysis [...] tendency for uric acid stone formation. Source: [place] [employer] Current Interpretive Data was last revised on 2017 Protein, ur ql Negative Negative [facility] ([place]) Glucose, ur ql Negative Negative [facility] ([place]) Ketones, ur Negative Negative [facility] ([place]) Bilirubin, ur Negative Negative [facility] ([place]) Blood, ur Negative Negative [facility] ([place]) Urobilinogen, ur <2.0 <2.0 mg/dL [facility] ([place]) Nitrite, ur Negative Negative [facility] ([place]) Leukocyte esterase, ur Negative Negative [facility] ([place]) UA reflex comment Reflex conditions for microscopic UA and culture not met. [facility] ([place]) Urine 02/09/2025 11:1 5 AM CDT 02/09/2025 11:27 AM CDT us [facility] LAB MICROBIOLOGY - GENERAL O RDERABLES Final Result [facility] ([place]) 1 [facility] Department [place] [address] * (ABNORMAL) Drugs of Abuse Screen, Urine [...] 2022. Opiates, ur Not Detected CutOff 300ng/mL [facility] ([place]) Comment: Interpretive Data - Opiates: Samples containing greater than 300 ng/mL morphine or other cross-reacting compounds are reported as positive. False positive and false negative results are possible. Confirmatory testing required for definitive results. Current Interpretive Data was last reviewed 2022. Oxycodone, ur NOT DETECTED CutOff 100ng/mL [facility] ([place]) Comment: Interpretive Data - Oxycodone: Samples containing greater than 100 ng/mL oxycodone or other cross-reacting compounds are reported as positive. False positive and false negative results are possible. Confirmatory testing required for definitive results. Current Interpretive Data was last reviewed 2022. Phencyclidine, ur Not Detected CutOff 25 ng/mL [facility] ([place]) Comment: Interpretive Data - Phencyclidine: Samples containing greater than 25 ng/mL phencyclidine or other cross-reacting compounds are reported as positive. False positive and false negative results are possible. Confirmatory testing required for definitive results. Current Interpretive Data was last reviewed 2022. Urine Creatinine 62 mg/dL [facility] ([place]) Comment: Interpretive Data Urine Creatinine: < [...] to be used for Pain Management purposes. [facility] URINE ORDERABLES Final R esult [facility] ([place]) 1 [facility] Department [place] [address] * XR Shoulder Left 2 or More [...] Jesus Cardona M.D. KR: NETO Report ID: [id number] Reading Location: [id number] Procedure Note Jose De Jesus Cardona MD [...] Jesus Cardona M.D. KR: NETO Report ID: [id number] Reading Location: [id number] [facility] IMG XR PROCEDURES Final Resu lt * ECG 12 lead (02/09/2025 10:59 AM CDT) 02/09/2025 10:5 9 AM CDT Narrative [facility] - 02/10/2025 12:06 PM CDT Vent Rate: 129 bpm RR Interval: 464 msec LA Interval: 148 msec QRS Duration: 97 msec QT Interval: 313 msec QTC Interval: 389 msec P-R-T [place]: 81 - 86 - 50 degrees IMPRESSION: SINUS TACHYCARDIA ABNORMAL RHYTHM ECG Electronically Signed By: Fran Valdivia MD [facility] ECG ORDERABLES Final Result [facility] * eGFR (02/09/2025 10:45 AM CDT) eGFR [...] of Race in Diagnosing Kidney Disease, JASN 2020). The CKD-EPI equation should not be used for patients with unstable renal function and has not been validated in children and those over 70. Current interpretive data was last reviewed 2021. Blood 02/09/2025 10:4 5 AM CDT 02/09/2025 10:52 AM CDT [facility] LAB BLOOD ORDERABLES Final R esult [facility] ([place]) 1 [facility] Department [place] [address] * Differential, auto (02/09/2025 10:45 AM CDT) Neutrophil abs 2.52 1.50 - 6.50 K/cumm Imm gran abs 0.01 0.00 - 0.10 K/cumm [facility] ([place]) Lymphocyte abs 2.00 0.80 - 3.30 K/cumm [facility] ([place]) Monocyte abs 0.58 0.20 - 0.80 K/cumm [facility] ([place]) Eosinophil abs 0.08 0.00 - 0.50 K/cumm [facility] ([place]) Basophil abs 0.03 0.00 - 0.10 K/cumm [facility] ([place]) Neutrophil pct 48.3 % [facility] ([place]) Comment: Interpretive Data Percent cell count reference ranges are not reported, since discordance with absolute values may lead to misinterpretation of CBC data. Current Interpretive Data was last revised on 2017. Imm gran pct 0.2 % [facility] ([place]) Comment: Interpretive Data Percent cell count reference ranges are not reported, since discordance with absolute values may lead to misinterpretation of CBC data. Current Interpretive Data was last revised on 2017. Lymphocyte pct 38.3 % [facility] ([place]) Comment: Interpretive Data Percent cell count reference ranges are not reported, since discordance with absolute values may lead to misinterpretation of CBC data. Current Interpretive Data was last revised on 2017. Monocyte pct 11.1 % [facility] ([place]) Comment: Interpretive Data Percent cell count reference ranges are not reported, since discordance with absolute values may lead to misinterpretation of CBC data. Current Interpretive Data was last revised on 2017. Eosinophil pct 1.5 % [facility] ([place]) Comment: Interpretive Data Percent cell [...] BLOOD ORDERABLES Final R esult [facility] ([place]) 1 [facility] Department [place] [address] * (ABNORMAL) CBC with auto differential (02/09/2025 10:45 AM CDT) WBC 5.22 3.80 - 9.90 K/cumm Hgb 12.5 11.9 - 15.5 g/dL [facility] ([place]) Hct 39.9 35.6 - 45.5 % [facility] ([place]) Plt 403(H) 150 - 400 K/cumm [facility] ([place]) MPV 10.9 9.1 - 12.3 fL [facility] ([place]) RBC 4.57 3.90 - 5.20 M/cumm [facility] ([place]) MCV 87.3 81.3 - 96.4 fL [facility] ([place]) MCH 27.4 27.1 - 33.3 pg [facility] ([place]) MCHC 31.3(L) 32.3 - 35.7 g/dL [facility] RDW CV 16.6(H) 11.1 - 14.9 % [facility] RDW SD 53.6(H) 35.7 - 48.[address] [facility] NRBC abs 0.00 0.00 - 0.01 K/cumm [facility] Blood 02/09/2025 10:4 5 AM CDT 02/09/2025 10:52 AM CDT [facility] LAB BLOOD ORDERABLES Final R esult Performing Organization Address City/[facility] Co de Phone Number [facility] ([place]) 1 [facility] [place] [address] * Ethanol (02/09/2025 10:45 AM CDT) Ethanol <10 <=10 mg/dL [facility] ([place]) Comment: Interpretive Data Legal limit of intoxication > or = 80 mg/dL Levels > or = 400 mg/dL are potentially TOXIC. Current interpretive data was last revised on 2018. Blood 02/09/2025 10:4 5 AM CDT 02/09/2025 10:52 AM CDT [facility] LAB BLOOD ORDERABLES Final R esult Performing Organization Address City/[facility] Co de Phone Number [facility] ([place]) 1 [facility] [place] [address] * Acetaminophen level (02/09/2025 10:45 AM CDT) Acetaminophen <5 <=5 mcg/mL [facility] ([place]) Comment: Markedly elevated levels of Acetaminophen and [...] after ingestion Consult toxicology or poison control ([phone]) for unknown ingestion time. Current interpretive data was last revised 2023. Blood 02/09/2025 10:4 5 AM CDT 02/09/2025 10:52 AM CDT [facility] LAB BLOOD ORDERABLES Final R esult Performing Organization Address [facility] Co de Phone Number NICOLAWANDA DARIUS ([place]) 1 [facility] [employer] [place] [address] * Salicylate level (02/09/2025 10:45 AM CDT) Salicylate <5.0 <=5.0 mg/dL [facility] ([place]) Comment: Interpretive Data Toxic: 30 mg/dL or greater. Current interpretive data was last revised 2023. Blood 02/09/2025 10:4 5 AM CDT 02/09/2025 10:52 AM CDT [facility] LAB BLOOD ORDERABLES Final R esult [facility] ([place]) 1 [facility] [place] [address] * Comprehensive metabolic panel (02/09/2025 10:45 AM CDT) Sodium 135 135 - 145 mmol/L [facility] ([place]) Potassium, pl 4.6 3.3 - 4.9 mmol/L [facility] ([place]) Chloride 97 97 - 110 mmol/L [facility]) CO2 25 22 - 32 mmol/L [facility] ([place]) Anion gap 13 2 - 15 mmol/L [facility] ([place]) BUN 11 6 - 25 mg/dL [facility] ([place]) Creatinine 0.62 0.60 - 1.10 mg/dL [facility] ([place]) Glucose 91 70 - 199 mg/dL [facility] ([place]) Comment: Interpretive Data Fasting glucose [...] Final R esult [facility] ([place]) 1 [facility] Department [place] [address] * DEVICE CHECK - REMOTE (01/25/2025 12:05 PM CDT) Anatomical Region Laterality Modality Other Narrative 02/17/2025 2:25 PM CDT [place] Airline LINQ11 Loop Recorder. Dx; Syncope, Palpitations. DOI 02/11/2022Tanner. [facility]link remote f/u. Routine ILR remote. Normal device function. Battery function-good Presenting rhythm: Sinus tachycardia Medications: No anticoagulation or cardiac meds Counters since last scheduled transmission on 12/13/24. --0 Tachy --0 Krish --0 Pause --1 Symptom - symptom report correlates with sinus tachycardia --0 AF See scanned report. [facility] remote f/u 03/07/25. Nestor Romero RN us Shekhar Garcia MD [facility] Final Result * TRANSTHORACIC ECHO (TTE) COMPLETE W DOPPLER/CF WO CONTRAST (01/06/2025 12:27 PM CDT) Estimated EF 50 % CONS SCIMAGE EF Mod BP 48 % CONS SCIMAGE Anatomical Region Laterality Modality Ultrasound 01/06/2025 11:1 4 AM CDT Narrative 01/06/2025 12:59 PM CDT [facility] Cardiology [address] [facility] [address], [place] [address] [address] [facility] [address], [place] [address] P:[phone] P:[phone] Echocardiographic Report Patient Name: ANNABELLA GARCIA C : 1975 Study Date: 01/06/2025 11:14:13 AM 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 Left Ventricle: Normal left ventricular size. [...] Procedure Note Shekhar Garcia MD - 01/06/2025 [facility] [address] [facility] [address], [place] [address] [address] [facility] [address] [id number] [address] P:[phone] P:[phone] Echocardiographic Report Patient Name: ANNABELLA GARCIA C : 1975 Study Date: 01/06/2025 11:14:13 AM Sex: F Vascular Technologist Sonographer: Hattie Gomez (Hemal)(CT), [facility] Location: [facility] Provider: SUE SMITH Height(Cm): 178 BSA: [...] Interpretation Site: Exam was interpreted at [facility]. Left Ventricle: Normal left ventricular size. [...] Modality Other Narrative 01/04/2025 12:15 PM CDT [employer]ium Loop Recorder. Dx; Syncope, Palpitations. DOI 02/11/2022-Jose. Carelink remote f/u. Routine ILR remote. Normal device function. Battery function-good. Presenting rhythm: Sinus tachycardia Medications: No anticoagulation or cardiac meds Counters since last scheduled transmission on 11/01/24. No auto or patient recorded episodes noted. See scanned report. [facility] remote f/u 01/24/25. Nestor Romero, RN Shekhar Garcia MD [facility] Final Result * Diagnostic Mammogram Bilateral [...] Final Result * COLONOSCOPY (07/20/2020 9:05 AM BATCHMAKER) Anatomical Region Laterality Modality Other Narrative Procedure Note Fausto Delgado MD - 07/20/2020 9:05 AM CST [facility] Patient Name: Annabella Garcia Procedure Date: 07/20/2020 9:05 AM Date of : 1975 Admit Type: Outpatient Age: 45 Gender: Female Attending MD: Fausto Delgado M.D. Room: [facility] ENDOSCOPY ROOM 3 Note Status: Finalized [...] The scope was passed under direct vision.The [id number] endoscope was introduced through the anus [...] On: 07/20/2020 9:05 AM Recognized by the [place] [employer] for promoting quality in endoscopy Fausto Delgado MD ENDOSCOPY PROCEDURES Final Re sult from Last 3 Months or Most Recently Relevant to Health Maintenance Insurance [facility] Member Subscriber Plan / Payer (Ef fective 2015-Present) Name:Annabella Garcia Relation to Subscriber:Spouse Name:VALERIO GARCIA Date of :1974 (Home) Address: [facility] [place] [address] Payer ID:[id number] (NAIC) Type: OTHER Address: [facility] [address] [place] [id number] [employer] [place] Advance Directives For more information, please contact: [phone] * Full Code (Latest Code Status on File) Date Activated Date Inactivated Comments 02/10/2025 10:02 AM 02/10/2025 10:56 PM * Full Code Date Activated Date Inactivated Comments 07/20/2020 8:24 AM 07/20/2020 2:42 PM Care Teams Varsity Baseball Coach Relationship Specialty Start Date End Date Morena Sprague DO PCP - General Family Medicine 03/13/21 Omar Valenzuela PA [address] [place] [address] [place] [address] Physician Hadoop Software Engineer Orthopedic Surgery 09/21/24
[2025-02-25 08:17] LABS: Hematocrit 40.3 % (37.0-47.0); Hemoglobin 12.5 g/dL (12.0-15.0); Immature Granulocyte Percent A 0.3 % (0-0.5); Lymphocytes Absolute Auto 1.72 K/mm3 (0.9-3.2); Mean Corpuscular HGB Conc 31.0 g/dl (32-36); Mean Corpuscular Hemoglobin 28.1 pg (26-34); Mean Corpuscular Volume 90.6 fl (80-100); Nucleated Red Blood Cells Absolute Auto 0.000 K/mm3 (0.0-0.012); Nucleated Red Blood Cells Perc 0.0 % (0.0-0.2); Platelet Count Result 355 k/mm3 (150-375); Red Blood Count 4.45 M/mm3 (4.2-5.4); White Blood Count 6.1 K/mm3 (4.5-10.0)
== END 2025-02-25 08:02 | disposition home or self-care (01) ==
LOC: ANHLAB 08:02
PROVIDERS: PCP Family Medicine; Visit Provider Internal Medicine Hematology & Oncology
DX: D64.9 Anemia, unspecified (principal)
CPT/HCPCS: 36415; 85025

== ENCOUNTER 2025-04-01 08:44 | Outpatient (CLI) | payer BC, MEDICARE, SELFPAY ==
--- OUTSIDE RECORDS SUMMARY | 2025-03-22 03:15 | XMS_ITS ---
Author Organization [facility] [employer] Address [address] [place] [address] Care Team Providers Care Green Belt Name Role Phone Morena Sprague DO Primary Care Provider Aaron Enrique Unavailable [phone] REASON FOR VISIT Follow Up, Follow up appointment, seen via tele Medications Medication SIG (Take, Route, Frequency, Duration) Notes Start Date End Date Status LORazepam 1 MG Tablet 1 tablet Orally twice a day 03/22/2025 Active Doxepin HCl 10 MG Capsule 1 capsule at bedtime Oral Once a day; Duration: 90 days 03/22/2025 Active DULoxetine HCl 60 MG Capsule Delayed Release Particles 1 capsule Oral twice a day; Duration: 90 days 03/22/2025 Active rOPINIRole HCl 1 MG Tablet 1 tablet Oral twice a day; Duration: 90 days 03/22/2025 Active QUEtiapine Fumarate ER 150 MG Tablet Extended Release 24 Hour 1 tablet in the evening Orally Once a day; Duration: 90 days 03/22/2025 Active Divalproex Sodium ER 500 MG Tablet Extended Release 24 Hour TAKE 1 TABLET TWICE A DAY BY ORAL ROUTE FOR 90 DAYS.; Duration: 90 Not-Taking Acetaminophen-Codei ne 300-60 MG Tablet Oral; Duration: 21 Days Active Acetaminophen-Codei ne 300-60 MG Tablet TAKE 1 TABLET BY MOUTH TWICE A DAY NEEDED Oral; Duration: 21 Days Active Doxepin HCl 10 MG Capsule TAKE 1 CAPSULE BY MOUTH EVERYDAY AT BEDTIME; Duration: 90 Active rOPINIRole HCl 1 MG Tablet TAKE 1 TABLET BY MOUTH TWICE A DAY; Duration: 90 Active sulfaSALAzine 500 MG Tablet Delayed Release Oral 09/24/2023 Active OptiChamber Cher SPACER (EA) MISCELLANEOUS 09/24/2023 Active Triamcinolone Acetonide 0.1% Cream External 09/24/2023 Active BUDESONIDE-FORMOTER OL HFA 80 MCG-4.5 MCG/ACTUATION AEROSOL INHALER *Reorder from [employer] for eRx and Interaction Alerts* 09/24/2023 Active Methocarbamol 500 MG Tablet Oral 09/24/2023 Active Famotidine 40 MG Tablet Oral 09/24/2023 Active Depakote ER 500 MG Tablet Extended Release 24 Hour Oral 09/24/2023 Active ZEPBOUND 2.5 MG/0.5 ML SUBCUTANEOUS PEN INJECTOR *Reorder from [employer] for eRx and Interaction Alerts* 09/24/2023 Active Gabapentin 600 MG Tablet Oral tid 09/24/2023 Active Multivitamin - Tablet 1 tablet Orally Once a day Active Vitamin B Complex - Tablet as directed Orally Active Vitamin D 25 MCG (1000 UT) Tablet 1 tablet Orally Once a day Active Social History Tobacco Use: Social History Observation Description Date Details (start date - stop date) Former Smoker 05/12/1994 - 05/12/2000 Sex Assigned At : Social History Observation Description Sex Assigned At Female Social History Tobacco Use: Social Info Question Answer Notes Tobacco Control (Standard) Tobacco use: Former smoker When did you start smoking? 05/12/1994 When did you stop smoking? 05/12/2000 How long has it been since you last smoked? Greater than 10 years Additional Details Category Social Info Options Details Migrated Social History Migrated Social History Alcohol Intake: None 12/21/2020,Tobacco Years: Former smoker 03/14/2020,Smoking Status: 10 05/14/2023 Encounters Encounter Location Date Provider Diagnosis [facility] [employer] [facility] [address] [address] 03/22/2025 Aaron Pop Generalized anxiety disorder F41.1 ; Major depressive disorder, recurrent, mild F33.0 ; Other insomnia G47.09 and Restless legs syndrome G25.81 Assessments Encounter Date Diagnosis (ICD Code) Assessment Notes Treatment Notes Treatment Clinical Notes Section Notes 03/22/2025 Generalized anxiety disorder (ICD-10 - F41.1) stable 03/22/2025 Major depressive disorder, recurrent, mild (ICD-10 - F33.0) 03/22/2025 Other insomnia (ICD-10 - G47.09) Doxepin 10mg hs 03/22/2025 Restless legs syndrome (ICD-10 - G25.81) ropinirole 1mg hs Plan Of Treatment Medication Medication Name Sig Start Date Stop Date Notes LORazepam 1 MG Tablet 1 tablet Orally twice a day 03/22/20 25 Doxepin HCl 10 MG Capsule 1 capsule at b edtime Oral Once a day; Duration: 90 days 03/22/2025 DULoxetine HCl 60 MG Capsule Delayed Release Particles 1 capsule Oral twice a day; Duration: 90 days 03/22/2025 rOPINIRole HCl 1 MG Tablet 1 tablet Oral twice a day; Duration: 90 days 03/22/2025 QUEtiapine Fumarate ER 150 M G Tablet Extended Release 24 Hour 1 tablet in the evening Orally Once a day; Duration: 90 days 03/22/2025 Treatment Notes Assessment Notes Generalized anxiety disorder stable Other insomnia Doxepin 10mg hs Restless legs syndrome ropinirole 1mg hs Next Appt Details Follow Up: 2 Months, Reason: f/u anxiety, depression History and Physical Notes * HPI (History [...] inte rest or pleasure in doing things: Several days Feeling down, depressed, or hopeless: Se veral days Trouble falling or staying asleep, or sl eeping too much: Several days Feeling tired or having little energy: N early every day Poor appetite or overeating: Several day s Feeling bad about yourself o r that [...] moving around a lot more than usual: Not at all Thoughts that you would be b joselo off or of hurting yourself in some way: Not at all Total Score: 10 Interpretation: Moderate Depression Depression Screening ORA-7 (2018 Edition) Feelin g nervous, anxious, or on edge: Several days Not being able to stop or control worryi ng: Several days Worrying too much about different things : Several days Trouble relaxing: Several days Being so restless that it is hard to sit still: Several days Becoming easily annoyed or irritable: Se veral days Feeling afraid as if something awful jitendra ht happen: Several days Total ORA-7 Score: 7 If you checked any problems, how difficult have they made it for you to do your work, take care of things at home, or get along with other people?: Somewhat difficult Interpretation of Total: (5 to 9) Mild [place]-Suicide Severity Rating Scale Suicide Risk (CSRS-screener) in [...] Notes * ANNABELLA GARCIADOB:[birth year] (50 yo F)Acc No.[id number]:03/22/2025 Patient: Sonny ANNABELLA GE Provider: TIFFANI RAZO :1975 A ge:50 Y S ex:Female Date:03/22/2025 Address:[facility] Pcp:Morena Sprague DO Check In:09:18 AM CSTCheck O ut:09:26 AM FOOD ORDER EXPEDITER Subjective: * Chief Complaints: * F ollow UpFollow up appointmentSeen via tele * HPI: H istory of Presenting Problem: The patient was seen today for Tele visit. [place] _[place]x__patient is seen at HOME Pt is seen [...] since losing weight. Lili/Hypomania e xcessive spending. D epression Screening: ORA-7 (2018 Edition) F eeling nervous, anxious, or on edge S everal days N ot being able to stop or control worrying?Several days W orrying too much about different things S everal days T rouble relaxing S everal days B eing so restless that it is hard to sit still S everal days B ecoming easily annoyed or irritable S everal days F eeling afraid as if something awful might happen S everal days T otal ORA-7 Score 7 I f you checked any problems, how difficult have they made it for you to do your work, take care of things at home, or get along with other people? S omewhat difficult I nterpretation of Total ( 5 to 9) Mild [place]-Suicide Severity Rating Scale: Suicide Risk [...] anything to end your life? N o D epression screening: PHQ-9 L ittle interest or pleasure in doing things?Several days F eeling down, depressed, or hopeless S everal days T rouble falling or staying asleep, or sleeping too much S everal days F eeling tired or having little energy N early every day P oor appetite or overeating S everal days F eeling bad about yourself or that [...] around a lot more than usual N ot at all T houghts that you would be better off or of hurting yourself in some way N ot at all T otal Score 1 0 I nterpretation M oderate Depression P ast Psychiatric Medications: Lunesta, divalproex, zaleplon, ramelteon, armodafinil, Rozerem, trazodone,. * Social History: T obacco Use: T obacco Control (Standard) T obacco use: F ormer smoker W hen did you start smoking? 0 05/12/1994 W hen did you stop smoking? 0 05/12/2000 H ow long has it been since you last smoked??Greater than 10 years M igrated Social History: M igrated Social History: Alcohol Intake: None 12/21/2020,Tobacco Years: Former smoker 03/14/2020,Smoking Status: 10 05/14/2023. S ocial History Verified. * Medications: T akingrOPINIRole HCl 1 MG Tablet 1 tablet Oral twice a day DULoxetine HCl 60 MG Capsule Delayed Release Particles 1 capsule Oral twice a day Doxepin HCl 10 MG Capsule 1 capsule at bedtime Oral Once a day LORazepam 1 MG Tablet 1 tablet Orally twice a day Vitamin D 25 MCG (1000 UT) Tablet 1 tablet Orally Once a day Vitamin B Complex - Tablet as directed Orally Multivitamin - Tablet 1 tablet Orally Once a day Gabapentin 600 MG Tablet Oral , Notes to Pharmacist: tidZEPBOUND 2.5 MG/0.5 ML SUBCUTANEOUS PEN INJECTOR , Notes to Pharmacist: *Reorder from [facility] for eRx and Interaction Alerts*Depakote ER 500 MG Tablet Extended Release 24 Hour Oral Famotidine 40 MG Tablet Oral Methocarbamol 500 MG Tablet Oral BUDESONIDE-FORMOTEROL HFA 80 MCG-4.5 MCG/ACTUATION AEROSOL INHALER , Notes to Pharmacist: *Reorder from [facility] for eRx and Interaction Alerts*Triamcinolone Acetonide 0.1% Cream External OptiChamber Cher SPACER (EA) MISCELLANEOUS sulfaSALAzine 500 MG Tablet Delayed Release Oral rOPINIRole HCl 1 MG Tablet TAKE 1 TABLET BY MOUTH TWICE A DAY Doxepin HCl 10 MG Capsule TAKE 1 CAPSULE BY MOUTH EVERYDAY AT BEDTIME Acetaminophen- Codeine 300-60 MG Tablet TAKE 1 TABLET BY MOUTH TWICE A DAY NEEDED Oral Acetaminophen-Codeine 300-60 MG Tablet Oral QUEtiapine Fumarate ER 150 MG Tablet Extended Release 24 Hour 1 tablet in the evening Orally Once a day , Notes to Pharmacist: dose increaseTaking rOPINIRole HCl 1 MG Tablet 1 tablet Oral twice a day Taking DULoxetine HCl 60 MG Capsule Delayed Release Particles 1 capsule Oral twice a day Taking Doxepin HCl 10 MG Capsule 1 capsule at bedtime Oral Once a day Taking LORazepam 1 MG Tablet 1 tablet Orally twice a day Taking Vitamin D 25 MCG (1000 UT) Tablet 1 tablet Orally Once a day Taking Vitamin B Complex - Tablet as directed Orally Taking Multivitamin - Tablet 1 tablet Orally Once a day Taking Gabapentin 600 MG Tablet Oral , Notes to Pharmacist: tidTaking ZEPBOUND 2.5 MG/0.5 ML SUBCUTANEOUS PEN INJECTOR , Notes to Pharmacist: *Reorder from [facility] for eRx and Interaction Alerts*Taking Depakote ER 500 MG Tablet Extended Release 24 Hour Oral Taking Famotidine 40 MG Tablet Oral Taking Methocarbamol 500 MG Tablet Oral Taking BUDESONIDE-FORMOTEROL HFA 80 MCG-4.5 MCG/ACTUATION AEROSOL INHALER , Notes to Pharmacist: *Reorder from [facility] for eRx and Interaction Alerts*Taking Triamcinolone Acetonide 0.1% Cream External Taking OptiChamber Cher SPACER (EA) MISCELLANEOUS Taking sulfaSALAzine 500 MG Tablet Delayed Release Oral Taking rOPINIRole HCl 1 MG Tablet TAKE 1 TABLET BY MOUTH TWICE A DAY Taking Doxepin HCl 10 MG Capsule TAKE 1 CAPSULE BY MOUTH EVERYDAY AT BEDTIME Taking Acetaminophen- Codeine 300-60 MG Tablet TAKE 1 TABLET BY MOUTH TWICE A DAY NEEDED Oral Taking Acetaminophen-Codeine 300-60 MG Tablet Oral Taking QUEtiapine Fumarate ER 150 MG Tablet Extended Release 24 Hour 1 tablet in the evening Orally Once a day , Notes to Pharmacist: dose increaseNot-TakingDivalproex Sodium ER 500 MG Tablet Extended Release 24 Hour TAKE 1 TABLET TWICE A DAY BY ORAL ROUTE FOR 90 DAYS. Medication List reviewed and reconciled with the patientNot-Taking Divalproex Sodium ER 500 MG Tablet Extended Release 24 Hour TAKE 1 TABLET TWICE A DAY BY ORAL ROUTE FOR 90 DAYS. Medication List reviewed and reconciled with the [...] day, 90 days, 180 Capsule, Refills 1; R efill QUEtiapine Fumarate ER Tablet Extended Release 24 Hour, 150 MG, 1 tablet in the evening, Orally, Once a day, 90 days, 90 Tablet, Refills 1. 3. O ther insomnia Continue Doxepin HCl Capsule, 10 MG, 1 capsule at bedtime, Oral, Once a day, 90 days, 90, Refills 1. Notes: Doxepin 10mg hs 4. R estless legs syndrome Continue rOPINIRole HCl Tablet, 1 MG, 1 tablet, Oral, twice a day, 90 days, 180 Tablet, Refills 1.? Notes: ropinirole 1mg hs * Follow Up: 2 Months (Reason: f/u anxiety, depression) Billing Information: * Visit Code: 09110 OFFICE OUTPATIENT VISIT 25 MINUTES DETAILED HISTORY AND EXAM/MODERATE MEDICAL DECISION MAKING. Modifiers: 95 * Procedure Codes: * Electronic signature of TIFFANI Garcia on 04/01/2025 at 08:51 AM FOOD ORDER EXPEDITER Sign off status: Pending * Provider: TIFFANI RAZO Date: 05/22/2024 Generated for Vicky interiano/Hernan/Don on: 06/01/2024 08:51 AM FOOD ORDER EXPEDITER
--- OUTSIDE RECORDS SUMMARY | 2025-03-31 03:00 | XMS_ITS ---
Author Organization [facility] Address [address] [place] [address] Care Team Providers Care Manufacturing Planner Name Role Phone DarcieMorena Primary Care Provider UnavailMarlyn Peck Unavailable [phone] Marlyn Hendrix MD Unavailable Unavailable Allergies Allergen (clinical drug ingredient) Drug/Non Drug Allergy documented on EMR Reaction Allergy Type Onset Date Status ibuprofen Ibuprofen Unknown Drug Allergy Active ferrous sulfate Iron Unknown Drug Allergy A ctive Latex Latex Unknown Allergy Active Penicillin Unknown Drug Allergy Active REASON FOR VISIT Remicade 5 vials YD Medications Medication SIG (Take, Route, Frequency, Duration) Notes Start Date End Date Status Omeprazole 40 MG 1 capsule 1/2 to 1 h our before morning meal Orally Once a day Active Gabapentin 600 MG 1 tablet Orally 3 ti mes a day Active Doxepin HCl 10 MG 1 capsule at bedtime Orally Once a day Active DULoxetine HCl 60 MG 1 capsule Orally tw ice a day Active Famotidine 40 MG 1 tablet Orally Once a day Active HYDROcodone-Acetaminophen 5-325 MG 1 tablet as needed Orally 3 times a day Active Pravastatin Sodium 20 MG 1 tablet Orally Once a day Active Divalproex Sodium 500 MG as directed Ora lly 3 times a day Active sulfaSALAzine 500 MG 1 tablet Orally priscila ry 4 hours Active Leflunomide 20 MG 1 tablet Orally Once a day Active Vitamin B 12 500 MCG 2 tablet Orally Onc e a day Active Vitamin D3 25 MCG (1000 UT) 1 capsule Or ally Once a day Active Calcium Citrate 250 MG 1 tablet Orally O nce a day Active Womens 50+ Advanced - as directed Orally Active Cyclobenzaprine HCl 10 MG 1 tablet at be dtime as needed Orally 3 times a day Active Stool Softener 100 MG 1 capsule as neede d Orally Once a day Active Clobetasol Propionate 0.05 % 1 applicati on Externally Twice a day Active Taltz 40 MG/0.5ML 1 mL Subcutaneous Active Zepbound 12.5 MG/0.5ML 0.5 mL Subcutaneous Active Triamcinolone Acetonide 0.1 % 1 application Externally Two times a Week Active LORazepam 1 MG 1 tablet at bedtime as needed Orally Once a day Active rOPINIRole HCl 1 MG 1 tablet 1 to 3 hour s before bedtime Orally twice a day Active Tacrolimus 0.1 % 1 application Orthopedics Teacher ally Once a day Active QUEtiapine Fumarate 150 MG 1 tablet at b edtime Orally Once a day Active Problems Problem Type SNOMED Code ICD Code Onset Dates Problem Status W/U Status Risk Notes Problem Psoriatic arthritis (disorder) (827398321) Arthropathic psoriasis, 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 Vital Signs Temperature 98.0 degrees Fahrenheit 03/31/20 25 Blood pressure systolic 127 mm Hg 03/31/20 25 Blood pressure diastolic 77 mm Hg 025 Heart Rate 88 /min 03/31/2025 Height 70 in 03/31/2025 Weight 211 lbs 03/31/2025 BMI 30.27 kg/m2 03/31/2025 Height-cm 177.8 cm 03/31/2025 Weight-kg 95.71 kg 03/31/2025 11:15 BP- 114/73, HR- 9211:4 5 BP- 110/77, HR - 91, temp 98 F Encounters Encounter Location Date Provider Diagnosis [facility] [address] [place] [address] 03/31/2025 Marlyn Hendrix Arthropathic psorias is, unspecified L40.50 Assessments Encounter Date Diagnosis (ICD Code) Assessment Notes Treatment Notes Treatment Clinical Notes Section Notes 03/31/2025 Arthropathic psoriasis, unspecified (ICD-10 - L40.50) Plan Of Treatment Next Appt Details Provider Name:Marlyn Hendrix, 04/21 09:00:00 AM, [address] [facility] [address] [facility], [place], [address], Provider Name:Marlyn Hendrix, 05/18 10:00:00 AM, [address] [facility] [address], [place], [address], Progress Notes * Corrie GARCIADOB:[birth year] (50 yo F)Acc No.[id number]:03/31/2025 Patient: Corrie LAZCANO Appointment Provider: Andrzej HENDRIX MD :1975 A ge:50 Y S ex:Female Date:03/31/2025 Address:[address] [place], [place] [address] Pcp:Morena Sprague Subjective: * Chief Complaints: * R emicade 5 vials YD * HPI: I nfusion: Infusion Record T ype of Infusion R emicade, W hat is the dosage . 500 mg, H ow is the dose calculated . 5 mg/kg, A uthorized by Javier Robertson umber of vials to reconstitute . 5 vials, I nfusion type R emicade, A mount . 500 mg infused, 0 mg wasted, M anufacturer _ ___ Angelina, E xpiration date 10/10/2027, L ot number _ __ [id number], S terile water (number of vials) . autoinjector, S terile water lot number _ __ [id number], S terile water exp. date 01/2027, s terile water MFG _ _ Caraballo. P re Infusion Assessment T B Screening Results PPD?N/A, D ate of results 03/21/2025, Q uantiferon TB Gold Results N egative, C hest Xray Results N /A, R ecent exposure to TB _ ____ none, A ny illness now N one. S kin Conditon D oes the patient has any skin condition n o. P revious Infusion D ate of last infusion N/A, P revious infusion type R emicade, R eaction?No, W as patient pre treated Y ES Tylenol 650 mg, Benadryl 25 mg, R esponse to previous infusion N /A. I V INSERTION C atheter brand _ ___ saf t intima, C atherter Gauge 2 4 ga, N eedle Length 3 /4 inch, I V site accessed _ ___ R AC, N umber of attempts to access vein/port . 1, P remedication _ ____ Tylenol 650 mg, Benadryl 25 mg, T alonzo given _ __ 09. P ATIENT MONITORING T alonzo infusion initated _ __ 909, R ate of infusion _ __ 125 ml/hr, I nfusion end time: _ ____ 1110. D ISPOSITION T alonzo IV discontinued: _ __ 111, A mount of drug administered _ ___ 500 mg, N ext Infusion Date Scheduled: 04/21/2025. * Medical History: * Surgical History: b ilateral knee replacement, cholecystectomy, hysterectomy, thyroid surgery * Hospitalization/Major Diagno stic Procedure: * Family History: psoriasis, rheumatoid arthritis. * Medications: T akingrOPINIRole HCl 1 MG Tablet 1 tablet 1 to 3 hours before bedtime Orally twice a day LORazepam 1 MG Tablet 1 tablet at bedtime as needed Orally Once a day QUEtiapine Fumarate 150 MG Tablet 1 tablet at bedtime Orally Once a day Tacrolimus 0.1 % Cream 1 application Externally Once a day Triamcinolone Acetonide 0.1 % Cream 1 application Externally Two times a Week Zepbound 12.5 MG/0.5ML Solution Auto-injector 0.5 mL Subcutaneous Taltz 40 MG/0.5ML Solution Prefilled Syringe 1 mL Subcutaneous Clobetasol Propionate 0.05 % Ointment 1 application Externally Twice a day Stool Softener 100 MG Capsule 1 capsule as needed Orally Once a day Womens 50+ Advanced - Capsule as directed Orally Calcium Citrate 250 MG Tablet 1 tablet Orally Once a day Vitamin D3 25 MCG (1000 UT) Capsule 1 capsule Orally Once a day Vitamin B 12 500 MCG Tablet 2 tablet Orally Once a day Cyclobenzaprine HCl 10 MG Tablet 1 tablet at bedtime as needed Orally 3 times a day Leflunomide 20 MG Tablet 1 tablet Orally Once a day sulfaSALAzine 500 MG Tablet 1 tablet Orally every 4 hours Divalproex Sodium 500 MG Tablet Delayed Release as directed Orally 3 times a day Pravastatin Sodium 20 MG Tablet 1 tablet Orally Once a day HYDROcodone-Acetaminophen 5-325 MG Tablet 1 tablet as needed Orally 3 times a day Famotidine 40 MG Tablet 1 tablet Orally Once a day DULoxetine HCl 60 MG Capsule Delayed Release Particles 1 capsule Orally twice a day Doxepin HCl 10 MG Capsule 1 capsule at bedtime Orally Once a day Gabapentin 600 MG Tablet 1 tablet Orally 3 times a day Omeprazole 40 MG Capsule Delayed Release 1 capsule 1/2 to 1 hour before morning meal Orally Once a day Taking rOPINIRole HCl 1 MG Tablet 1 tablet 1 to 3 hours before bedtime Orally twice a day Taking LORazepam 1 MG Tablet 1 tablet at bedtime as needed Orally Once a day Taking QUEtiapine Fumarate 150 MG Tablet 1 tablet at bedtime Orally Once a day Taking Tacrolimus 0.1 % Cream 1 application Externally Once a day Taking Triamcinolone Acetonide 0.1 % Cream 1 application Externally Two times a Week Taking Zepbound 12.5 MG/0.5ML Solution Auto-injector 0.5 mL Subcutaneous Taking Taltz 40 MG/0.5ML Solution Prefilled Syringe 1 mL Subcutaneous Taking Clobetasol Propionate 0.05 % Ointment 1 application Externally Twice a day Taking Stool Softener 100 MG Capsule 1 capsule as needed Orally Once a day Taking Womens 50+ Advanced - Capsule as directed Orally Taking Calcium Citrate 250 MG Tablet 1 tablet Orally Once a day Taking Vitamin D3 25 MCG (1000 UT) Capsule 1 capsule Orally Once a day Taking Vitamin B 12 500 MCG Tablet 2 tablet Orally Once a day Taking Cyclobenzaprine HCl 10 MG Tablet 1 tablet at bedtime as needed Orally 3 times a day Taking Leflunomide 20 MG Tablet 1 tablet Orally Once a day Taking sulfaSALAzine 500 MG Tablet 1 tablet Orally every 4 hours Taking Divalproex Sodium 500 MG Tablet Delayed Release as directed Orally 3 times a day Taking Pravastatin Sodium 20 MG Tablet 1 tablet Orally Once a day Taking HYDROcodone-Acetaminophen 5-325 MG Tablet 1 tablet as needed Orally 3 times a day Taking Famotidine 40 MG Tablet 1 tablet Orally Once a day Taking DULoxetine HCl 60 MG Capsule Delayed Release Particles 1 capsule Orally twice a day Taking Doxepin HCl 10 MG Capsule 1 capsule at bedtime Orally Once a day Taking Gabapentin 600 MG Tablet 1 tablet Orally 3 times a day Taking Omeprazole 40 MG Capsule Delayed Release 1 capsule 1/2 to 1 hour before morning meal Orally Once a day * Allergies: P enicillinLatexIbuprofenIron Objective: * Vitals: B P:127/77mm Hg, HR:88/min, Temp:98.0F, Wt:211lbs, Wt-k.71 kg, Ht: 70 in, Ht- cm: 177.8 cm, BMI:30.27Index, Body Surface Area: 2.17. 11:15 BP- 114/73, HR- 92 11:45 BP- 110/77, HR - 91, temp 98 F. Assessment: * Assessment: 1. A rthropathic psoriasis, unspecified - L40.50 (Primary) Plan: * Treatment: * Procedure Codes: J 7050 INFUS NORMAL SALINE SOLUTION 250 [id number] INJECTION INFLIXIMAB 10 MG, Units: 50.00 , Modifiers: [id number] THER/PROPH/DIAG IV INF [id number] THER/PROPH/DIAG IV INF, INIT * Billing Information: * Visit Code: * Procedure Codes: J7050 INFUS NORMAL SALINE SOLUTION 250 CC. J1745 INJECTION INFLIXIMAB 10 MG. Units: 50.00. Modifiers: [id number] THER/PROPH/DIAG IV INF ADDON. 54302 THER/PROPH/DIAG IV INF, INIT. Review Notes: Marlyn Hendrix 2025-03-31 19:24:00* AID Electronically co-signed by Marlyn Hendrix MD on 03/31/2025 at 07:24 PM HELP AID Sign off status: Completed true * Appointment Provider: Andrzej HENDRIX MD Date: 05/31/2024 Generated for Vicky interiano/Hernan/Don on: 06/01/2024 08:51 AM HELP AID History and Physical Notes * HPI (History of Present Illness) Category Sub-Category Detail Notes Category Not es Infusion Infusion Record Type of Infusion: Remicade What is the dosage: . 500 mg How is the dose calculated: . 5 mg/kg Authorized by: Dr. Hendrix Number of vials to reconstitute: . 5 via ls Infusion type: Remicade Amount: . 500 mg infused, 0 mg wasted Compress Engineer: ____ Angelina Expiration date: 10/10/2027 Lot number: ___ [id number] Sterile water (number of vials): . autoi njector Sterile water lot number: ___ [id number] Sterile water exp. date: 01/2027 sterile water MFG: __ Caraballo Pre Infusion Assessment TB Screening Results PPD : N/A Date of results: 03/21/2025 Quantiferon TB Gold Results: Negative Chest Xray Results: N/A Recent exposure to TB: none Any illness now: None Skin Conditon Does the patient has any skin co ndition: no Previous Infusion Date of last infusion: N/A Previous infusion type: Remicade Reaction: No Was patient pre treated: YES Tylenol 650 mg, Benadryl 25 mg Response to previous infusion: N/A IV INSERTION Catheter brand: ____ shayna wood Catherter Gauge: 24 ga Needle Length: 3/4 inch IV site accessed: ____ R Number of attempts to access vein/port: . 1 Premedication: Tylenol 650 mg, Stanford adryl 25 mg Time given: ___ 0900 PATIENT MONITORING Time infusion initated: ___ 0 910 Rate of infusion: ___ 125 ml/hr Infusion end time:: 1110 DISPOSITION Time IV discontinued:: ___ 1115 Amount of drug administered: ____ 500 mg Next Infusion Date Scheduled:: 5
--- OUTSIDE RECORDS SUMMARY | 2025-04-01 08:51 | XMS_ITS | Clinical Summary ---
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
--- OUTSIDE RECORDS SUMMARY | 2025-04-01 08:51 | XMS_ITS | Encounter Summary ---
Author Organization [facility] Healthcare Address [address] [place] [address] Care Team Providers Care Power Plant Inspector Name Role Phone Morena Sprague DO Primary Care Provider [phone] Omar Valenzuela Unavailable [phone] Encounter Details Date Type Department Care Team (Late st Contact Info) Description 07/12/2024 Orders Only [facility] Health Information Management [address] [place] [address] Scanning, Provider Social History Tobacco Use Types [...] on file Legal Sex Female 2:20 AM MEDICAL I D SALES Gender Identity Female 08/21/2020 9:29 PM CDT Sexual Orientation Straight 08/21/2020 9: 29 PM CDT 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
--- OUTSIDE RECORDS SUMMARY | 2025-04-01 08:52 | XMS_ITS | Encounter Summary ---
Author Organization [facility] Healthcare Address [address] [place] [address] Care Team Providers Care Supply Officer Name Role Phone Morena Sprague DO Primary Care Provider [phone] Omar Valenzuela PA Unavailable [phone] Encounter Details Date Type Department Care Team (Late st Contact Info) Description 03/29/2025 Results Follow-Up [facility] Medical [facility] Cardiology [address] [place] [address] Sue Guerrier NP [address] [place] [address] Transthoracic Echo (TTE) Complete W [...] Average Number of Drinks Not on file 025 Frequency of Binge Drinking Not on file 06/2024 Personal Safety Answer Date Recorded Have you ever been in or are you currently in a harmful physical or emotional relationship or is someone making you feel afraid or unsafe? 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
--- OUTSIDE RECORDS SUMMARY | 2025-04-01 08:52 | XMS_ITS | Clinical Summary ---
Author Organization [facility] Radha Mcbride Address [address] [place] [address] Care Team Providers Care Stretcher Helper Name Role Phone Morena Sprague Primary Care Provider [phone] Allergies Active Allergy Reactions Criticality Noted Date Comments Ibuprofen Other (See Comments),Rash Medium 08/04/2017 Penicillins Other (See Comments),Rash Medium 7 Skin sloughing Medications azaTHIOprine (IMURAN) 50 mg tablet Take 150 [...] SOFTENER ORAL) Take by mouth. Activ e LORazepam (ATIVAN) 1 mg tablet Take 1 mg by mouth 2 times daily as needed. Active QUEtiapine (SEROquel XR) 50 mg Extended Release 24 hour tablet take 1 tablet by mouth once a day in the evening Active Active Problems No known active problems Encounters Date Type Department Care Team Description 03/01/2025 External Device Data STL ABSTRACTION Provider, Abstract 2025 8:30 AM CDT Office Visit [facility] Oncology and Hematology [facility] [address] [place] [address] Jeffy Chang MD Chronic anemia (Primary Dx) 2025 Orders Only [facility] Oncology and [facility] [address] [place] [address] Jeffy Chang MD 01/25/2025 External Device Data STL ABSTRACTION Provider, [...] Sign Reading Time Taken Comments Blood Pressure 112/88 2025 8:27 AM CDT Pulse 89 2025 8:27 AM CDT Temperature 36.1 C (96.9 F) 2025 8:27 AM CDT Respiratory Rate 14 2025 8:27 AM CDT Oxygen Saturation 93% 2025 8:27 AM CDT Inhaled Oxygen Concentration - - Weight 92 kg (202 lb 12.8 oz) 2025 8:27 AM CDT Height 177.8 cm (5' 10) 10/28/2023 10:48 AM CDT Body Mass Index 29.1 10/28/2023 10:48 AM CDT Plan of Treatment Upcoming Encounters Date Type Department Care Team (Late st Contact Info) Description 09/01/2025 10:15 AM CDT Office Visit [facility] Oncology and Hematology [facility] [address] [facility] [address] [place] [address] Jeffy Chang MD [address] [place] [address] Health Maintenance Due Date Last [...] 2022 BREAST CANCER SCREENING 02/28/2023 02/29/20 22, 11/09/2020, 02/03/2020, Additional history exists INFLUENZA VACCINE (#1) 2024 0, 02/09/2019, 02/19/2018, Additional history exists COLORECTAL SCREENING 07/20/2030 07/20/2020, 07/21/19 21 Colorectal Cancer Screening 07/20/2030 Procedures Procedure Name Priority Date/Time Associated Diagnosis Comments CBC WITH AUTODIFFERENTIAL Routine 2025 11:57 AM CDT VITAMIN B12 AND FOLATE Routine 7:20 AM CDT Chronic anemia IRON, TIBC, AND PERCENT SATURATION Routine 02/19/2025 7:20 AM CDT Chronic anemia FERRITIN Routine 02/19/2025 7:20 AM CDT Chronic anemia from Last 3 Months Results * CBC WITH AUTODIFFERENTIAL (2025 11:57 AM CDT) Blood Jeffy Chang MD HEMATOLOGY ORDERABLES Final Res ult * VITAMIN B12 AND FOLATE (02/19/2025 7:20 AM CDT) VITAMIN B12 336 200 - 1100 pg/mL [facility] Comment: Please Note: Although the reference range for vitamin B12 is 200-1100 pg/mL, it has been reported that between 5 and 10% of patients with values between 200 and 400 pg/mL may experience neuropsychiatric and hematologic abnormalities due to occult B12 deficiency; less than 1% of patients with values above 400 pg/mL will have symptoms. FOLATE, SERUM 14.0 ng/mL [facility] Comment: Reference Range Low: <3.4 Borderline: 3.4-5.4 Normal: >5.4 Test Performed at: [facility] [address] [place] [place] [address] Vasquez Thornton MD Blood 02/19/2025 7:20 AM CDT 02/19/2025 7:20 AM CDT Jeffy Chnag MD CHEMISTRY ORDERABLES Final Resu lt [facility] [phone] [facility] [address] [place] [address] * IRON, TIBC, AND PERCENT SATURATION (02/19/2025 7:20 AM CDT) IRON 66 40 - 190 mcg/dL [facility] TIBC 351 250 - 450 mcg/dL (calc) [facility] IRON % SATURATION 19 16 - 45 % (calc) [facility] Comment: Test Performed at: [facility] [address] [place] [address] Vasquez Thornton MD Blood 02/19/2025 7:20 AM CDT 02/19/2025 7:20 AM CDT us Jeffy Chang MD CHEMISTRY ORDERABLES Final Resu lt Performing Organization Address City/[facility]/ZIP Co de Phone Number [facility] [phone] [facility] [address] [place] [address] * FERRITIN (02/19/2025 7:20 AM CDT) FERRITIN 24 16 - 232 ng/mL [facility] Comment: Test Performed at: [facility] [address] [place] [address] Vasquez Thornton MD Blood 02/19/2025 7:20 AM CDT 02/19/2025 7:20 AM CDT us Jeffy Chang MD CHEMISTRY ORDERABLES Final Resu lt Performing Organization Address [facility] Co de Phone Number [facility] [phone] [facility] [address] [place] [address] from Last 3 Months Insurance BCBS BLUE ACCESS/TRUE BLUE PPO AETNA O MCR Care Teams Stretcher Helper Relationship Specialty Start Date End Date Morena Sprague DO [facility] [facility] [address] [place] [address] PCP - General Family Practice 10/22/23
--- OUTSIDE RECORDS SUMMARY | 2025-04-01 08:52 | XMS_ITS | Encounter Summary ---
Author Organization [facility] Healthcare Address [address] [place] [address] Care Team Providers Care Salon Designer Name Role Phone Morena Sprague DO Primary Care Provider [phone] Omar Valenzuela Unavailable Encounter Details Date Type Department Care Team (Late st Contact Info) Description 09/28/2021 Orders Only [facility] Health Information Management [address] [place] [address] Scanning, Provider Social History Tobacco Use Types [...] on file Legal Sex Female 2:20 AM FILTER CHANGER Gender Identity Female 08/21/2020 9:29 PM CDT Sexual Orientation Straight 08/21/2020 9: 29 PM CDT 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 file Not on file Not on rudy e documented as of this encounter Plan of Treatment Not on file documented as of this encounter Procedures Procedure Name Priority Date/Time Associated Diagnosis Comments SCAN - RADIOLOGY/IMAGING 09/28/2021 documented in this encounter Results * SCAN - RADIOLOGY/IMAGING (09/28/2021) Anatomical Region Laterality Modality Other us Provider Scanning Final Result documented in this encounter Visit Diagnoses Not on filedocumented in this encounter Care Teams Salon Designer Relationship Specialty Start Date End Date Morena Sprague DO PCP - General Family Medicine 03/13/21 Omar Valenzuela PA [address] [place] [address] Physician Art Librarian Orthopedic Surgery 09/21/24 documented as of this encounter
--- OUTSIDE RECORDS SUMMARY | 2025-04-01 08:52 | XMS_ITS | Encounter Summary ---
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 Gender Identity Female 08/21/2020 9:29 PM CDT Sexual Orientation Straight 08/21/2020 9: 29 PM CDT 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 Not on file Not on rudy e documented as of this encounter Plan of Treatment Not on file documented as of this encounter Procedures Procedure Name Priority Date/Time Associated Diagnosis Comments SCAN - RADIOLOGY/IMAGING 10/19/2021 documented in this encounter Results * SCAN - RADIOLOGY/IMAGING (10/19/2021) Anatomical Region Laterality Modality Other us Provider Scanning Edited Result - Final documented in this encounter Visit Diagnoses Not on filedocumented in this encounter Care Teams Adult High School Instructor Relationship Specialty Start Date End Date Morena Sprague DO PCP - General Family Medicine 03/13/21 Omar Valenzuela PA [address] [facility] [address], [place] [address] Physician Proposal Manager Orthopedic Surgery 09/21/24 documented as of this encounter
--- OUTSIDE RECORDS SUMMARY | 2025-04-01 08:52 | XMS_ITS | Encounter Summary ---
Author Organization [facility] Address [address] [place] [address] Phone Care Team Providers Care Electronic Page Makeup System Operator Name Role Phone Geovanny Mayberry Primary Care Provider [phone] Zina Davis MD Primary Care Provider Emelina Singh DPT Unavailable [phone] Morena Sprague DO Primary Care Provider [phone] Omar Valenzuela Unavailable [phone] Encounter Details Date Type Department Care Team (Latest Contact Info) Description 10/05/2014 Orders Only [facility] Scanning, Provider Social History Tobacco Use Types Packs/Day Years Used Date Smoking Tobacco: Never Assessed Comments Unknown Sex and Gender Information Value Date Recorded Sex Assigned at Not on file Legal Sex Female 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 Gender Identity Female 08/21/2020 9:29 PM CDT [...] on filedocumented in this encounter Care Teams Electronic Page Makeup System Operator Relationship Specialty Start Date End Date Geovanny MayberryRadu [address] [address] PCP - General 08/04/17 03/04/19 Zina Davis MD [address] [address] PCP - General Family Practice 03/05/19 03/12/21 Morena Sprague DO [address] [place] [address] PCP - General Family Medicine 03/13/21 Emelina Singh DPT [address] [place] [address] Physical Therapist Physical Therapy 06/23/19 03/16/20 Omar Valenzuela PA [address] [place] [address] [place] [address] Physician Project Officer Orthopedic Surgery 09/21/24 documented as of this encounter
--- OUTSIDE RECORDS SUMMARY | 2025-04-01 08:52 | XMS_ITS | Patient Health Record ---
Author Organization [facility] As [employer] [facility] Address [address] [place] [address] Care Team Providers Care Bleach Machine Operator Name Role Phone Morena Sprague DO Primary Care Provider UnavailAaron Luciano Unavailable [phone] Allergies Allergen (clinical drug ingredient) Drug/Non Drug Allergy documented on EMR Reaction Allergy Type Onset Date Status Substance with penicillin structure and antibacterial mechanism of action (substance) Penicillins Unknown Drug Allergy 07/14/2023 Active Reason For Referral No Information Medications Medication SIG (Take, Route, Frequency, Duration) Notes Start Date End Date Status QUEtiapine Fumarate ER 150 MG Tablet Extended Release 24 Hour 1 tablet in the evening Orally Once a day; Duration: 90 days 03/22/2025 Active LORazepam 1 MG Tablet 1 tablet Orally twice a day 03/22/2025 Active Vitamin B Complex - Tablet as directed Orally Active Doxepin HCl 10 MG Capsule 1 capsule at bedtime Oral Once a day; Duration: 90 days 03/22/2025 Active Vitamin D 25 MCG (1000 UT) Tablet 1 tablet Orally Once a day Active sulfaSALAzine 500 MG Tablet Delayed Release Oral 09/24/2023 Active DULoxetine HCl 60 MG Capsule Delayed Release Particles 1 capsule Oral twice a day; Duration: 90 days 03/22/2025 Active OptiChamber Cher SPACER (EA) MISCELLANEOUS 09/24/2023 Active rOPINIRole HCl 1 MG Tablet 1 tablet Oral twice a day; Duration: 90 days 03/22/2025 Active Triamcinolone Acetonide 0.1% Cream External 09/24/2023 Active BUDESONIDE-FORMOTER OL HFA 80 MCG-4.5 MCG/ACTUATION AEROSOL INHALER *Reorder from [employer] for eRx and Interaction Alerts* 09/24/2023 Active Methocarbamol 500 MG Tablet Oral 09/24/2023 Active Famotidine 40 MG Tablet Oral 09/24/2023 Active Depakote ER 500 MG Tablet Extended Release 24 Hour Oral 09/24/2023 Active Divalproex Sodium ER 500 MG Tablet Extended Release 24 Hour TAKE 1 TABLET TWICE A DAY BY ORAL ROUTE FOR 90 DAYS.; Duration: 90 Not-Taking ZEPBOUND 2.5 MG/0.5 ML SUBCUTANEOUS PEN INJECTOR *Reorder from [employer] for eRx and Interaction Alerts* 09/24/2023 Active Acetaminophen-Codei ne 300-60 MG Tablet Oral; Duration: 21 Days Active Gabapentin 600 MG Tablet Oral tid 09/24/2023 Active Acetaminophen-Codei ne 300-60 MG Tablet TAKE 1 TABLET BY MOUTH TWICE A DAY NEEDED Oral; Duration: 21 Days Active Multivitamin - Tablet 1 tablet Orally Once a day Active Doxepin HCl 10 MG Capsule TAKE 1 CAPSULE BY MOUTH EVERYDAY AT BEDTIME; Duration: 90 Active rOPINIRole HCl 1 MG Tablet TAKE 1 TABLET BY MOUTH TWICE A DAY; Duration: 90 Active Immunizations Vaccine Route Administration Date Status [...] 02/09/2017 Administered MMR Unknown 03/06/2016 Administered Novel [id number], preservative free Unknown 02/10/2020 Administered Pfizer Biontech [...] Risk Notes Problem Mild recurrent major depression (58147507) Major depressive disorder, recurrent, mild (F33.0) Active confirmed Problem Generalized anxiety disorder (15455733) Generalized anxiety disorder (F41.1) Active confirmed Problem Restless legs syndrome (25632035) Restless legs syndrome (G25.81) Active confirmed Problem Insomnia (318299472) Other insomnia (G47.09) Active confirmed Vital Signs Height-cm 175.26 cm 06/16/2024 Height 69.00 in 06/16/2024 Encounters Encounter Location Date Provider Diagnosis Dating [employer] [address] [facility] [address] [address] 03/22/2025 Aaron Pop Generalized anxiety disorder F41.1 ; Major depressive disorder, recurrent, mild F33.0 ; Other insomnia G47.09 and Restless legs syndrome G25.81 [employer] [facility] [address] [facility] [address] [address] 06/16/2024 Aaron Pop Generalized anxiety disorder F41.1 ; Major depressive disorder, recurrent, mild F33.0 ; Other insomnia G47.09 ; Restless legs syndrome G25.81 and Major depressive disorder, recurrent severe without psychotic features 296.33 [employer] [facility] [address] [facility] [address] [place] [address] 10/19/2024 Aaron Pop Generalized anxiety disorder F41.1 ; Major depressive disorder, recurrent, mild F33.0 ; Other insomnia G47.09 ; Restless legs syndrome G25.81 and Major depressive disorder, recurrent severe without psychotic features 296.33 [facility] [address] [place] [address] 11/23/2024 Aaron Pop Generalized anxiety disorder F41.1 ; Major depressive disorder, recurrent, mild F33.0 ; Other insomnia G47.09 and Restless legs syndrome G25.81 [facility], [facility] [address] [place] [address] 12/29/2024 Aaron Pop Generalized anxiety disorder F41.1 ; Major depressive disorder, recurrent, mild F33.0 ; Other insomnia G47.09 and Restless legs syndrome G25.81 [facility] [address] [place] [address] 01/31/2025 Aaron Pop Generalized anxiety disorder F41.1 ; Major depressive disorder, recurrent, mild F33.0 ; Other insomnia G47.09 and Restless legs syndrome G25.81 [place] [address] [place] [address] 02/09/2025 Aaron Pop Generalized anxiety disorder F41.1 ; Major depressive disorder, recurrent, mild F33.0 ; Other insomnia G47.09 and Restless legs syndrome G25.81 [facility] [address] [place] [address] 03/07/2025 Aaron Pop Generalized anxiety disorder F41.1 ; Major depressive disorder, recurrent, mild F33.0 ; Other insomnia G47.09 and Restless legs syndrome G25.81 [facility] [address] [place] [address] 02/15/2025 Aaron Pop [place] [address] [place] [address] 02/17/2025 Aaron Pop Major depressive disorder, recurrent, mild F33.0 [facility] [address] [place] [address] 02/04/2025 Aaron Pop Generalized anxiety disorder F41.1 [facility], [place] [address] [place] [address] 02/11/2025 Aaron Pop [facility], [facility] [address] [place] [address] 02/11/2025 Aaron Pop Major depressive disorder, recurrent, mild F33.0 [facility] [employer] [facility] [address] [place] [address] 02/11/2025 Aaron Pop Generalized anxiety disorder F41.1 [...] anxiety disorder (ICD-10 - F41.1) stable 03/22/2025 Generalized anxiety disorder (ICD-10 - F41.1) stable 03/07/2025 Generalized anxiety disorder (ICD-10 - F41.1) stable 11/23/2024 Generalized anxiety disorder (ICD-10 - F41.1) stable 06/16/2024 Generalized anxiety disorder (ICD-10 - F41.1) stable 10/19/2024 Generalized anxiety disorder (ICD-10 - F41.1) stable 02/17/2025 Major depressive disorder, recurrent, mild (ICD-10 - F33.0) Electronic Prior Authorization was requested for QUEtiapine Fumarate ER 50 MG Tablet Extended Release 24 Hour. Provider can order medication once approval received. 10/19/2024 Major depressive disorder, recurrent, mild (ICD-10 - F33.0) Cymbalta 60mg bid, abilify 10mg daily 06/16/2024 Major depressive disorder, recurrent, mild (ICD-10 - F33.0) Cymbalta 60mg bid, abilify 10mg daily 11/23/2024 Major depressive disorder, recurrent, mild (ICD-10 - F33.0) Cymbalta 60mg bid, abilify 10mg daily 03/07/2025 Major depressive disorder, recurrent, mild (ICD-10 - F33.0) 01/31/2025 Major depressive disorder, recurrent, mild (ICD-10 - F33.0) 12/29/2024 Major depressive disorder, recurrent, mild (ICD-10 - F33.0) 03/22/2025 Major depressive disorder, recurrent, mild (ICD-10 - F33.0) 02/09/2025 Other insomnia (ICD-10 - G47.09) Doxepin 10mg hs 01/31/2025 Other insomnia (ICD-10 - G47.09) Doxepin 10mg hs 02/09/2025 Restless legs syndrome (ICD-10 - G25.81) ropinirole 1mg hs 12/29/2024 Other insomnia (ICD-10 - G47.09) Doxepin 10mg hs 03/22/2025 Other insomnia (ICD-10 - G47.09) Doxepin 10mg hs 03/07/2025 Other insomnia (ICD-10 - G47.09) Doxepin 10mg [...] syndrome (ICD-10 - G25.81) ropinirole 1mg hs 03/07/2025 Restless legs syndrome (ICD-10 - G25.81) ropinirole 1mg hs 03/22/2025 Restless legs syndrome (ICD-10 - G25.81) ropinirole 1mg hs 01/31/2025 Restless legs syndrome (ICD-10 - G25.81) ropinirole 1mg hs 12/29/2024 Restless legs syndrome (ICD-10 - G25.81) [...] for 90 days. - Send prescriptions to [facility] pharmacy. Follow-up: - Schedule a follow-up appointment in 4 months. - Patient will schedule the appointment through the [facility]. - Encourage the patient to reach [...] is currently under the care of a chest painting leader and is taking Tylenol 4 for pain control. Additionally, steps are being taken to obtain a medical marijuana card for potential pain management. Plan: - Continue current pain management regimen: - Tylenol 4 - gabapentin - duloxetine - Follow up with chest painting leader as scheduled - Proceed with obtaining medical [...] have been made to correct them. 11/23/2024 Other Annabella Garcia, a patient with a history of [...] efforts have been made to correct them. 01/31/2025 Lucian Garcia, a female patient with a history of depression and anxiety, presents with ongoing sleep issues, cognitive difficulties, and recent concerns about perimenopause symptoms and cardiac fluid accumulation. Cardiac Fluid Accumulation Assessment: Patient reports a small amount of fluid on the heart, which is currently not requiring drainage. Heart function is at the lowest level of normal, causing concern. A trans-thoracic PKG is scheduled for March to reassess the situation. Blood pressure has been higher than normal, which could be due to the cardiac strain or anxiety, or a combination of both. Plan: - Await results of scheduled trans-thoracic PKG in March - Monitor blood pressure Anxiety Assessment: Patient's anxiety may be exacerbated by current cardiac issues and elevated blood pressure. No significant changes in depression symptoms noted. Plan: - Discontinue Abilify 2 mg - Follow up in one month to assess response to Abilify discontinuation Insomnia Assessment: Patient reports ongoing sleep difficulties. Current medications, including evening dose of duloxetine, may be contributing to sleep disturbances. Plan: - Continue doxepin 10 mg at bedtime - Consider future adjustment of duloxetine dosing schedule Cognitive Difficulties Assessment: Patient reports ongoing issues with attention and concentration. These symptoms may be multifactorial, potentially related to sleep disturbances, physical symptoms, pain, and current medications including Depakote. Suspected Perimenopause Assessment: Patient reports experiencing hot flashes, suggesting possible perimenopause. An appointment has been scheduled to address this concern. Medication Management Assessment: Current medication regimen includes duloxetine 60 mg twice daily, doxepin 10 mg at bedtime, ropinirole, and Depakote. Abilify 2 mg was recently decreased with no noticeable changes. Duloxetine may be contributing to elevated blood pressure and sleep disturbances. Plan: - Discontinue Abilify 2 mg - Continue duloxetine, doxepin, ropinirole, and Depakote at current doses - Consider future adjustment of duloxetine dosing - Follow up in one month to reassess medication efficacy and side effects 02/09/2025 Other pt reports new onset seizure [...] efforts have been made to correct them. 03/07/2025 Lucian Garcia is a patient with anxiety and depression symptoms who is currently being treated with multiple medications and showing improvement in sleep. Depression Patient is currently being treated for depression with Seroquel XR, which was started on February 11. She is reporting some benefit from the medication. The target dose for Seroquel XR when treating depression is 300 milligrams, and she is currently on a lower dose. Sleep has improved with current treatment regimen. Plan: - Increase Seroquel XR to 150 mg - Take increased dose for a couple days and assess response - May discontinue doxepin if Seroquel XR provides adequate sleep benefit, as doxepin is only being used for sleep - Continue duloxetine twice daily Anxiety Patient has anxiety symptoms that are being treated with Seroquel XR. The medication appears to be helping with both anxiety and mood symptoms. Patient reports feeling like she is starting to get a better handle on things. Plan: - Continue current treatment approach with Seroquel XR increase as noted above - Follow-up in 2 weeks Sleep disturbance Sleep has improved with current medication regimen. Patient is currently taking doxepin at bedtime specifically for sleep, and Seroquel XR is also providing sleep benefits. Plan: - May discontinue doxepin if Seroquel XR at increased dose provides adequate sleep benefit - Monitor sleep response to medication changes the note is transcribed using speech recognition software. It is a reflection of a visit with the patient. It might have some inaccuracy, including medication names and transcribing errors, though efforts have been made to correct them. Plan Of Treatment No Information Insurance Providers Payer Name Payer Address Payer Phone Subscriber Number Group Number Insured Name Patient Relationship to Insured Coverage Start Date Coverage End Date [employer] [address] [place] [address] [id number] L ANNABELLA MUKHERJEE Self - patient is the insured [facility] [address] [place] [address] [id number] ANNABELLA MUKHERJEE Spouse - patient is the spouse of the insured Medical (General) History Medical History History ICD Code Imported from Highlights: e patient has been under consistent monitoring and treatment from September to November 2023 for palpitations, syncope and collapse, and status post placement of an implantable loop recorder. These conditions were addressed during multiple ancillary procedures and orders by Dr. Shekhar Garcia at [facility] and through telephone consultations. The patient also had an office visit and telephone check-up with SIOMARA Nelson at [facility], for iron deficiency anemia, thrombocytosis, and B12 deficiency. External device data was also collected multiple times by Provider Abstract at [facility]. The patient's conditions have been managed [...] Surgical History Surgery Date(Month/Year) Removal of gallbladder (91185) 5 Endometrial ablation ([id number]) 009 Endometrial ablation (63038) 05/12/2014 Hysterectomy (67233) 10/14/2018 Total knee replacement ([id number]) left 03/16/2020 Breast surgery (17626) 04/20/2019
--- OUTSIDE RECORDS SUMMARY | 2025-04-01 08:52 | XMS_ITS | Encounter Summary ---
Author Organization [facility] Address [address] [facility] [address] [place] [address] Care Team Providers Care Airplane Mechanic Apprentice Name Role Phone Morena Sprague DO Primary Care Provider [phone] Omar Valenzuela Unavailable [phone] Encounter Details Date Type Department Care Team (Late st Contact Info) Description 03/21/[address] 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 Not on file Not on rudy e documented as of this encounter Plan of Treatment Not on file documented as of this encounter Procedures Procedure Name Priority Date/Time Associated Diagnosis Comments HR HLA TYPING (CLASS I AND CLASS II) Routine 03/21/2025 9:46 AM CHILDREN'S MINISTRY DIRECTOR documented in this encounter Results * HR HLA Typing (Class I and Class II) (03/21/2025 9:46 AM CHILDREN'S MINISTRY DIRECTOR) NGS HISTOTRAC A First Allele A*02:01 HISTOTRAC A Second Allele A*26:01 HISTOTRAC A First Serological Equivalent A2 HISTOTRAC A Second Serological Equivalent A26 HISTOTRAC B First Allele B*38:01 HISTOTRAC B Second Allele B*51:01 HISTOTRAC B First Serological Equivalent B38 HISTOTRAC B Second Serological Equivalent B51 HISTOTRAC Bw First Serological Equivalent Bw4 HISTOTRAC Bw Second Serological Equivalent Bw4 HISTOTRAC C First Allele C*12:03 HISTOTRAC C Second Allele C*15:02 HISTOTRAC C First Serological Equivalent Cw12 HISTOTRAC C Second Serological Equivalent Cw15 HISTOTRAC DRB1 First [place]le[place] DRB1*03:[address]IST[address]B1 Second [place]lele DRB1*13:[address] First Serological Equivalent DR17 HISTOTRAC DRB1 Second Serological Equivalent DR13 HISTOTRAC DRB3 First [place] DRB3*01:[address]ISTOTRAC [address]B3 Second [place]le[place] DRB3*02:FD GBW HISTOTRAC DRB3 First Serological Equivalent DR52 HISTOTRAC DRB3 Second Serological Equivalent DR52 HISTOTRAC DQA1 First [place] DQA1*01:03 HISTOTRAC DQA1 Second Allele DQA1*05:01 HISTOTRAC DQB1 First [place]lele DQB1*02:ED WXA HISTOTRAC DQB1 Second Allele DQB1*06:FG VMV HISTOTRAC DQB1 First Serological Equivalent DQ2 HISTOTRAC DQB1 Second Serological Equivalent DQ6 HISTOTRAC DPB1 First [place] DPB1*03:01 :01G HISTOTRAC DPB1 Second Allele DBP1*09:01 :01G HISTOTRAC DPA1 First Allele DPA1*01:03 HISTOTRAC DPA1 Second Allele DPA1*02:01 HISTOTRAC 03/21/2025 9:46 AM CHILDREN'S MINISTRY DIRECTOR 03/31/2025 9:19 AM CHILDREN'S MINISTRY DIRECTOR Narrative HISTOTRAC - 03/31/2025 9:19 AM CHILDREN'S MINISTRY DIRECTOR DNA was extracted from whole blood or buccal cell specimens, and relevant genomic regions were amplified by polymerase chain reaction (PCR). HLA typing was performed on PCR amplicons by next-generation sequencing (NGS) using the AllType NGS assay ([employer]) on the Twined platform, which outperforms the [place] Sequence-based typing (SBT) but is not FDA approved for HLA typing. The sequence-specific primers (SSP) method may be employed to resolve ambiguity using FDA approved IVD products ([place] SSP) as indicated. The performance of the above methods are validated by the [facility]. For typing results reported using NMDP codes, all unresolved alleles represented by the code are listed under the NMDP Code Translations section. DPB1 typing may be resulted using G group codes when applicable (e.g. DPB1*01:01:01G); all alleles within a G group share the same DNA sequence for the exon 2 of DPB1, and the list of unresolved alleles within a G group can be viewed at http://hla.alleles.org/alleles/g_groups.html. Testing performed at the [facility], [address] [place] [address], 5th floor, [place], [address]. [facility] # [id number]. Paulina Holder, Ph.D., Credit Checker, HLA Laboratory James Browne M.D., Ph.D., Body Worker, HLA Laboratory Ioana Nassar, Ph.D., CLIA Body Worker, [facility] Laboratories Current methodology comment last revised on 02/08/2020. us Marlyn Mixon MD LAB BLOOD ORDERABLES Final Resul t HISTOTRAC documented in this encounter Visit Diagnoses Not on filedocumented in this encounter Care Teams Airplane Mechanic Apprentice Relationship Specialty Start Date End Date PoonamsusijimMorena DO PCP - General Family Medicine 03/13/21 Omar Valenzuela PA [address] [facility] [address] [place] [address] Physician Dry Starch Operator Orthopedic Surgery 09/21/24 documented as of this encounter
--- OUTSIDE RECORDS SUMMARY | 2025-04-01 08:52 | XMS_ITS | Encounter Summary ---
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
--- OUTSIDE RECORDS SUMMARY | 2025-04-01 08:52 | XMS_ITS | Clinical Summary ---
Author Organization [facility] Address [address] [place] [address] Phone Care Team Providers Care Electronic Equipment Installer Name Role Phone PoonamsusiMorena fernandez Primary Care Provider [phone]- [phone] Medications DULoxetine (CYMBALTA) [address] [...] patient's age to complete this topic Insurance [facility] MEDICARE C AETNA Care Teams Electronic Equipment Installer Relationship Specialty Start Date End Date Morena Sprague DO [address] [place] [address] PCP - General Family Medicine 10/30/22
--- OUTSIDE RECORDS SUMMARY | 2025-04-01 08:52 | XMS_ITS | Patient Health Record ---
Author Organization [facility] Address [address] [place] [address] Care Team Providers Care Billing Clerk Name Role Phone Morena Sprague Primary Care Provider UnavailMarlyn Peck Unavailable [phone] Marlyn Mixon MD Unavailable Unavailable Allergies Allergen (clinical drug ingredient) Drug/Non Drug Allergy documented on EMR Reaction Allergy Type Onset Date Status ibuprofen Ibuprofen Unknown Drug Allergy Active ferrous sulfate Iron Unknown Drug Allergy A ctive Latex Latex Unknown Allergy Active Penicillin Unknown Drug Allergy Active Results Component Value Reference Range Notes ASH reflex titer pattern GALINA + dsDNA Reviewed date:03/22/2025 05:32:43 PM Interpretation: Performing Lab:[facility] , [address] [facility]. [place] [address] Notes/Report: ASH, Qual Negative Interpretive Data Normal range for ASH Qualitative Antibody = Negative. 1. ASH is performed using indirect immunofluorescence against HEp-2 cells 2. ASH titers are performed on all positive qualitative results. 3. A significantly positive ASH result is defined as a positive nuclear fluorescence at a titer of 1:80 or greater. 4. 15% of normal people above age 65 have significantly positive ASH results. 5% or less of normal people age 65 or under have significantly positive ASH results. Current interpretive data was last revised on 2020. Testing performed by: [facility], [address] [facility] [facility], [place]., [address] Anti-CCP (Cyclic Citrullinat ed Peptide Ab) Reviewed date:03/22/2025 05:32:43 PM Interpretation: Performing Lab:[facility] , [address] [facility]. [place] [address] Notes/Report: CCP Ab <0.5 <=2.9 units/mL Interpretive data Negative: <3 units/mL Positive: > or equal to 3 units/mL Current interpretive data was last revised on 2016. C Reactive Protein Reviewed date:03/21/2025 04:23:39 PM Interpretation: Performing Lab:[facility] , [address] [place] [address]. [place] [address] Notes/Report: C-Reactive Protein 3.1 <=10.0 mg/L CBC w auto diff Reviewed date:03/21/2025 04:23:39 PM Interpretation: Performing Lab:[facility] , [address] [place] [address]. [place] [address] Notes/Report: WBC 5.10 3.80-9.90 K/cumm Hgb 12.3 11.9-15.5 g/dL Hct 41.5 35.6-45.5 % Platelet Ct 379 150-400 K/cumm MPV 11.5 9.1-12.3 fL RBC 4.36 3.90-5.20 M/cumm MCV 95.2 81.3-96.4 fL MCH 28.2 27.1-33.3 pg MCHC 29.6 32.3-35.7 g/dL RDW CV 15.6 11.1-14.9 % RDW SD 55.2 35.7-48.1 fL NRBC Abs Auto 0.00 0.00-0.01 K/cumm Comprehensive metabolic pane l (CMP) Reviewed date:03/21/2025 04:23:39 PM Interpretation: Performing Lab:[facility] , [address] [place] [address]. [place] [address] Notes/Report: Sodium 138 135-145 mmol/L Plasma Potassium 4.5 3.3-4.9 mmol/L Chloride 100 97-110 mmol/L Total CO2 25 22-32 mmol/L Anion Gap 13 2-15 mmol/L BUN 12 6-25 mg/dL Creatinine 0.59 0.60-1.10 mg/dL Glucose 79 70-199 mg/dL Interpretive Data Fasting glucose >/= 126 mg/dl [...] Current interpretive data was last revised 2022. Total Calcium 9.6 8.5-10.3 mg/dL Total Bilirubin 0.4 0.1-1.2 mg/dL Plasma Total Protein 7.6 6.5-8.5 g/dL Albumin 4.2 3.5-5.0 g/dL Alkaline Phosphatase 75 40-130 Units/L ALT 18 7-45 Units/L AST 26 10-45 Units/L Creatine Kinase Reviewed date:03/21/2025 04:23:39 PM Interpretation: Performing Lab:[facility] , [facility] [facility]. [place] [address] Notes/Report: Total CK 45 30-200 Units/L G6PD Ql Reviewed date:03/21/2025 09:50:45 PM Interpretation: Performing Lab:[facility] , [facility] [facility]. [place] [address] Notes/Report: G6PD, Qual Normal Normal Interp data: G6PD activity should be interpreted in the context of a patient's hematocrit. Hematocrit < 20% may lead to a falsely deficient result, while hematocrit > 50% may lead to a falsely normal result. Current interpretive data was last revised on 2019. Testing performed by: [facility], [address] [place]., [address] Hep B surf AG Reviewed date:03/21/2025 04:23:39 PM Interpretation: Performing Lab:[facility] , [address] [facility]. [place] [address] Notes/Report: Hepatitis B Surface Antigen Nonreactive Nonreactiv Hep C AB Reviewed date:03/21/2025 04:23:39 PM Interpretation: Performing Lab:[facility] , [address] [facility]. [place] [address] Notes/Report: Hepatitis C Antibody Nonreactive Nonreactiv Interpretive Data Nonreactive: Antibodies to HCV not detected. Does NOT exclude the possibility of recent exposure to HCV. Equivocal: Equivocal for HCV antibodies. Supplemental molecular testing will be automatically performed to determine infection status in accordance with current CDC screening recommendations. Reactive: Positive for HCV antibodies. This may represent current or past HCV infection. Supplemental molecular testing will be automatically performed to determine current infection status in accordance with current CDC screening recommendations. Interpretive data was last revised on 2019. QTB Gold Reviewed date:03/23/2025 09:38:42 PM Interpretation: Performing Lab:[facility] , [address] [place] [address]. [facility] [address] Notes/Report: QuantiFERON TB Gold Negative Negative No interferon-gamma response to M. tuberculosis antigens was detected. Latent infection with M. tuberculosis is unlikely. A single negative result does not exclude infection with M. tuberculosis. In patients at high risk for M.tuberculosis infection, a second test should be considered in accordance with the 2017 ATS/IDSA/CDC Clinical Practice Guidelines for Diagnosis of Tuberculosis in Adults and Children [Agapitoinsradha SEGOVIA et. al. Clin. Infect. Dis. 2017;64(2):111-115]. The reference range for the 'TB1 Ag minus Nil Result' and 'TB2 Ag minus Nil Result' is an Interferon-gamma level <0.35 IU/mL. TB-Nil 0.02 TB2-Nil 0.01 Mitogen-Nil 9.99 NIL 0.01 Test Performed by: [address] [address] Plastic Boat Buffer: Onel Hodge Ph.D.; CLIA# [id number] Rheumatoid Factor Reviewed date:03/21/2025 04:23:39 PM Interpretation: Performing Lab:[facility] , [address] [place] [address]. [facility] [address] Notes/Report: RF, Cruzito <10 <=15 IUnits/mL Sed Rate Reviewed date:03/21/2025 04:23:39 PM Interpretation: Performing Lab:[facility] , [address] [place] [address]. [facility] [address] Notes/Report: ESR 24 1-20 mm/hr Differential Automated Reviewed date:03/21/2025 04:23:39 PM Interpretation: Performing Lab:[facility] , [address] [place] [address]. [facility] [address] Notes/Report: Neut Abs 2.72 1.50-6.50 K/cumm ImmGran Abs 0.02 0.00-0.10 K/cumm Lymphocyte Abs 1.61 0.80-3.30 K/cumm Piute Abs 0.53 0.20-0.80 K/cumm Eos Abs 0.19 0.00-0.50 K/cumm Baso Abs 0.03 0.00-0.10 K/cumm Neut Pct 53.3 Interpretive Data Percent cell count reference ranges are not reported, since discordance with absolute values may lead to misinterpretation of CBC data. Current Interpretive Data was last revised on 2017. ImmGran Pct 0.4 Interpretive Data Percent cell count reference ranges are not reported, since discordance with absolute values may lead to misinterpretation of CBC data. Current Interpretive Data was last revised on 2017. Lymph Pct 31.6 Interpretive Data Percent cell count reference ranges are not reported, since discordance with absolute values may lead to misinterpretation of CBC data. Current Interpretive Data was last revised on 2017. Piute Pct 10.4 Interpretive Data Percent cell count reference ranges are not reported, since discordance with absolute values may lead to misinterpretation of CBC data. Current Interpretive Data was last revised on 2017. Eos Pct 3.7 Interpretive Data Percent cell count reference ranges are not reported, since discordance with absolute values may lead to misinterpretation of CBC data. Current Interpretive Data was last revised on 2017. Baso Pct 0.6 Interpretive Data Percent cell count reference ranges are not reported, since discordance with absolute values may lead to misinterpretation of CBC data. Current Interpretive Data was last revised on 2017. eGFR Reviewed date:03/21/2025 04:23:39 PM Interpretation: Performing Lab:[facility] , [address] [facility] [facility] [facility] [address] Notes/Report: eGFR >90 >=60 mL/min/1.73 m2 Interpretive Data Reference Interval Normal >/= 90 [...] Current interpretive data was last reviewed 2021. Reason For Referral Reason 03.24.2025 Remicade J1745 9 visits every 8 weeks BCBS/AETNA Auth [id number] 03.21.2025 to 03.21.2026 Diagnosis 1 Psoriatic arthritis (L40.50) Referral Organization [facility] Referring Provider First Name Marlyn Referring Provider Last Name Oral Referring Provider Speciality Rheumatolo gy Referred Organization [facility] Referred Provider Marlyn Mixon Referred Address [address], [place],[address], Referred Provider Specialty Rheumatology Procedure 1 INJECTION INFLIXIMAB 10 MG (J1745) Referral Priority Routine Medications Medication SIG (Take, Route, Frequency, Duration) Notes Start Date End Date Status Zepbound 12.5 MG/0.5ML 0.5 mL Subcutaneous Active Triamcinolone Acetonide 0.1 % 1 application Externally Two times a Week Active sulfaSALAzine 500 MG 1 tablet Orally priscila ry 4 hours Active Tacrolimus 0.1 % 1 application Container Finishing Inspector ally Once a day Active Leflunomide 20 MG 1 tablet Orally Once a day Active QUEtiapine Fumarate 150 MG 1 tablet at b edtime Orally Once a day Active Cyclobenzaprine HCl 10 MG 1 tablet at be dtime as needed Orally 3 times a day Active LORazepam 1 MG 1 tablet at bedtime as needed Orally Once a day Active Vitamin B 12 500 MCG 2 tablet Orally Onc e a day Active Omeprazole 40 MG 1 capsule 1/2 to 1 h our before morning meal Orally Once a day Active rOPINIRole HCl 1 MG 1 tablet 1 to 3 hour s before bedtime Orally twice a day Active Vitamin D3 25 MCG (1000 UT) 1 capsule Or ally Once a day Active Gabapentin 600 MG 1 tablet Orally 3 ti mes a day Active Calcium Citrate 250 MG 1 tablet Orally O nce a day Active Doxepin HCl 10 MG 1 capsule at bedtime Orally Once a day Active Womens 50+ Advanced - as directed Orally Active DULoxetine HCl 60 MG 1 capsule Orally tw ice a day Active Stool Softener 100 MG 1 capsule as neede d Orally Once a day Active Famotidine 40 MG 1 tablet Orally Once a day Active Clobetasol Propionate 0.05 % 1 applicati on Externally Twice a day Active HYDROcodone-Acetaminophen 5-325 MG 1 tablet as needed Orally 3 times a day Active Taltz 40 MG/0.5ML 1 mL Subcutaneous Active Pravastatin Sodium 20 MG 1 tablet Orally Once a day Active Divalproex Sodium 500 MG as directed Ora lly 3 times a day Active Social History Tobacco Use: Social History Observation Description Date Details (start date - stop date) Former Smoker NA - NA Household Question Answer Notes Marital status: Number of children in household: 2 Tobacco Control (Standard) Question Answer Notes Tobacco use: Former smoker How long has it been since you last smoked? Grea ter than 10 years Problems Problem Type SNOMED Code ICD Code Onset Dates Problem Status W/U Status Risk Notes Problem Psoriatic arthritis (disorder) (828735506) Arthropathic psoriasis, 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 Problem Psoriatic arthritis (052527875) Psoriatic arthritis (L40.50) Active confirmed Problem Psoriasis (6602107) Psoriasis (L40.9) Active confirmed Vital Signs Heart Rate 88 /min 03/31/2025 11:15 BP- 114/73, HR- 92 11:45 BP- 110/77, HR - 91, temp 98 F Temperature 98.0 degrees Fahrenheit 03/31/2025 11:15 BP- 114/73, HR- 92 11:45 BP- 110/77, HR - 91, temp 98 F Height-cm 177.8 cm 03/31/2025 11:15 BP- 114/73, HR- 92 11:45 BP- 110/77, HR - 91, temp 98 F Oximetry 97 % 03/21/2025 Blood pressure diastolic 77 mm Hg 03/31/2025 11:15 BP- 114/73, HR- 92 11:45 BP- 110/77, HR - 91, temp 98 F Weight-kg 95.71 kg 03/31/2025 11:15 BP- 114/73, HR- 92 11:45 BP- 110/77, HR - 91, temp 98 F Height 70 in 03/31/2025 11:15 BP- 114/73, HR- 92 11:45 BP- 110/77, HR - 91, temp 98 F Blood pressure systolic 127 mm Hg 03/31/2025 11:15 BP- 114/73, HR- 92 11:45 BP- 110/77, HR - 91, temp 98 F Weight 211 lbs 03/31/2025 11:15 BP- 114/73, HR- 92 11:45 BP- 110/77, HR - 91, temp 98 F BMI 30.27 kg/m2 03/31/2025 11:15 BP- 114/73, HR- 92 11:45 BP- 110/77, HR - 91, temp 98 F Encounters Encounter Location Date Provider Diagnosis [facility] [address] [place] [address] 03/21/2025 Marlyn Mixon Psoriatic arthritis L40.50 ; Psoriasis L40.9 ; Multiple joint pain M25.50 and Lumbar back pain M54.50 [facility] [address] [place] [address] 03/31/2025 Marlyn Mixon Arthropathic psorias is, unspecified L40.50 Assessments Encounter Date Diagnosis (ICD Code) Assessment Notes Treatment Notes Treatment Clinical Notes Section Notes 03/21/2025 Psoriatic arthritis (ICD-10 - L40.50) 50 year old female with psoriatic arthritis. She failed methotrexate, azathioprine, plaquenil and cimzia. She did not tolerate otezla. Azar aria stopped working. She has been on taltz for a year. It has not helped much. She will change taltz to remicade infusion. She will continue leflunomide and sulfasalazine for now. Labs and Xrays will be ordered. Thank you for referring this patient. cc Dr. Morena Sprague 03/21/2025 Psoriasis (ICD-10 - L40.9) 50 year old female with psoriatic arthritis. She failed methotrexate, azathioprine, plaquenil and cimzia. She did not tolerate otezla. Simponi aria stopped working. She has been on taltz for a year. It has not helped much. She will change taltz to remicade infusion. She will continue leflunomide and sulfasalazine for now. Labs and Xrays will be ordered. Thank you for referring this patient. cc Dr. Morena Sprague 03/31/2025 Arthropathic psoriasis, unspecified (ICD-10 - L40.50) 03/21/2025 Multiple joint pain (ICD-10 - M25.50) 50 year old female with psoriatic arthritis. She failed methotrexate, azathioprine, plaquenil and cimzia. She did not tolerate otezla. Simponi aria stopped working. She has been on taltz for a year. It has not helped much. She will change taltz to remicade infusion. She will continue leflunomide and sulfasalazine for now. Labs and Xrays will be ordered. Thank you for referring this patient. cc Dr. Morena Sprague 03/21/2025 Lumbar back pain (ICD-10 - M54.50) 50 year old female with psoriatic arthritis. She failed methotrexate, azathioprine, plaquenil and cimzia. She did not tolerate otezla. Simponi aria stopped working. She has been on taltz for a year. It has not helped much. She will change taltz to remicade infusion. She will continue leflunomide and sulfasalazine for now. Labs and Xrays will be ordered. Thank you for referring this patient. cc Dr. Morena Sprague Plan Of Treatment Pending Test Test Name Order Date X ray : Hands, bilateral 03/21/2025 X ray : SI joint, left 03/21/2025 X ray : SI joint, right 03/21/2025 X ray : Spines, lumbar complete 03/21/20 25 HLA-B27 ANTIGEN (528) 03/21/2025 Next Appt Details Provider Name:Marlyn Oral, 04/21 09:00:00 AM, [address] [place], [address], Provider Name:Marlyn Mixon, 05/18 10:00:00 AM, [address], [place], [address], Insurance Providers Payer Name Payer Address Payer Phone Subscriber Number Group Number Insured Name Patient Relationship to Insured Coverage Start Date Coverage End Date Rudy [address] [place] [address] [id number] Corrie Smith Self - patient is the insured Aetna Medicare Ppo [address] [place] [address] [id number] Corrie Smith Self - patient is the insured Medical (General) History Medical History History ICD Code psoriatic arthritis, pseudogout, GERD, o steoarthritis Surgical History Surgery Date(Month/Year) bilateral knee replacement, cholecystectomy, hysterectomy, thyroid surgery
--- OUTSIDE RECORDS SUMMARY | 2025-04-01 08:53 | XMS_ITS | Clinical Summary ---
Author Organization [facility] [employer] Address [address] [place] [address] Care Team Providers Care Hand Clipper Name Role Phone Geoavnny Mayberry MD Primary Care Provider [phone] Geoavnny Mayberry MD Unavailable [phone] Source Comments [facility],non-owned Affiliates and Associated Physician Practices is amultiple site organization consisting of ambulatory clinics and hospital sitesin [place], [place], [place] and [place]. This disclosure is being madepursuant to the Care Everywhere program and may not contain all information available regarding this patient. Last updated 18.[facility] Allergies Active Allergy Reactions Criticality Noted Date [...] with food Active vitamin D, ergocalciferol, (DRISDOL) 11415 UNITS capsule Take 50,000 Units by mouth every 30 days Active fluticasone propionate (FLONASE) 50 MCG/ACT nasal sprayIndication s:Acute maxillary sinusitis, recurrence not specified [place] 2 sprays into each nostril once daily [...] Years Used Date Smoking Tobacco: Former Cigarettes 8 1 994 - 2002 Smokeless Tobacco: Never Comments No Sex and Gender Information Value Date Recorded Sex Assigned at Not on file Legal Sex Female 7:22 AM CDT Gender Identity Not on file Sexual Orientation Not on file Last Filed Vital Signs Vital Sign Reading Time Taken Comments Blood Pressure 118/80 03/18/2017 4:08 PM SERVICE ORDER EXPEDITER Pulse 86 03/18/2017 4:08 PM SERVICE ORDER EXPEDITER Temperature 37.1 C (98.7 F) 03/18/2017 4:08 PM SERVICE ORDER EXPEDITER Respiratory Rate 16 03/18/2017 4:08 PM SERVICE ORDER EXPEDITER Oxygen Saturation 98% 03/18/2017 4:08 PM SERVICE ORDER EXPEDITER Inhaled Oxygen Concentration - - Weight 120.2 kg (265 lb) 03/18/2017 4:08 PM SERVICE ORDER EXPEDITER Height 175.3 cm (5' 9) 03/18/2017 4:08 PM SERVICE ORDER EXPEDITER Body Mass Index 39.13 03/18/2017 4:08 PM SERVICE ORDER EXPEDITER Plan of Treatment Health Maintenance Due Date [...] 19+ 3-dose series) 02/26/1996 Cervical Cancer Screening 1998 PAP SMEAR 1998 PAP with HPV 2007 SCREENING FOR DIABETES 03/18/2017 DEPRESSION SCREENING 05/12/2024 [...] to complete this topic Insurance ANTHEM ANTHEM PENDING SALE TO [employer] AETNA MEDICARE ADV Care Teams Hand Clipper Relationship Specialty Start Date End Date Geovanny Mayberry MD [address] [place] [id number] PCP - General 09/30/18 Geovanny Mayberry MD [address] [place] [phone] Family Medicine 09/30/18
--- OUTSIDE RECORDS SUMMARY | 2025-04-01 08:53 | XMS_ITS | Clinical Summary ---
Author Organization [facility] Address [address] [place] [address] Care Team Providers Care Data Entry Representative Name Role Phone Morena Sprague DO Primary Care Provider [phone] Omar Valenzuela PA Unavailable [phone] Allergies Active Allergy Reactions Criticality Noted Date [...] day After dinner and bedtime 1 Active sulfaSALAzine EN (AZULFIDINE EN) 500 mg EC tablet Take 2 tablets (1,000 mg total) by mouth 2 (two) times a day 3 Active doxepin (SINEquan) 10 mg capsule TAKE 1 CAPSULE BY MOUTH EVERYDAY AT BEDTIME Active clobetasoL (TEMOVATE) 0.05 % external solution APPLY ONCE DAILY TO PSORIASIS AT BEDTIME. 5 Active leflunomide (ARAVA) 20 mg tablet Take 1 tablet (20 mg total) by mouth daily 5 Active omeprazole (PriLOSEC) 40 mg capsule [...] a day 60 tablet/chew tab 5 Active senna-docusate (PERICOLACE) 8.6-50 mg 1-2 times daily as needed for constipation 60 tablet 1 5 Active calcium citrate (CALCITRATE) 950 mg (200 mg of elemental calcium) tablet Take 600 mg by mouth 3 (three) times a day 5 Active cyclobenzaprin e (FLEXERIL) 10 mg tablet Take 1 tablet (10 mg total) by mouth 3 (three) times a day as needed 5 Active docusate sodium (COLACE) 50 mg capsule Take 1 capsule (50 mg total) by mouth 3 (three) times a day 4 Active HYDROcodone-ac etaminophen (NORCO) 5-325 mg per tablet Take 1 tablet by mouth every 6 (six) hours as needed for pain 5 Active nystatin cream Apply topically as needed Active nystatin-triam cinolone cream Apply topically 2 (two) times a day Active pravastatin (PRAVACHOL) 20 mg tablet Take 1 tablet (20 mg total) by mouth daily Active LORazepam (ATIVAN) 1 mg tabletIndicati ons:anxiety Take 1 tablet (1 mg total) by mouth 2 (two) times a day Take morning and nightly 9 and 2100 Active Active Problems Problem Noted Date Diagnosed Date [...] Recorder. Dx; Syncope, Palpitations. DOI 02/11/2022- Linh. [facility] remote f/u. Palpitations 02/06/2022 Syncope and collapse [...] w/r/t gut microbiome. Referred to ADA and [email or web address] websites for additional information on topics [...] not improve, I recommend her seeing a stringed instrument repairer or CRS. Anxiety and depression 08/04/2017 Panic [...] normal. Assessment & Plan (06/19/2020 3:56 PM CRATE LINER): She presents with extensive prior workup for [...] reflex an refer to rheumatology here at [facility] for second opinion on her joint issues. We will see her back in clinic after her endoscopies for further evaluation and to make decisions about potential treatments. Encounters Date Type Department Care Team Description 03/29/2025 10:15 AM CRATE LINER Ancillary Procedure [facility] Cardiology at [address] [place] [phone] Pericardial effusion 03/29/2025 Results Follow-Up [facility]iology [address] [facility] [address] [place] [phone] Sue Smith NP Transthoracic Echo (TTE) Complete W Doppler/CF 03/21/2025 9:50 AM CRATE LINER - 03/21/2025 11:59 PM CRATE LINER Hospital Encounter [facility] [address] [facility] [address] [place] [phone] Arthropathic psoriasis, unspecified (HCC) Discharge Disposition: Discharge to home or self care 03/21/2025 9:45 AM CRATE LINER Lab [facility] [address] [place] [address] 03/21/2025 Orders Only [facility] at [address] [facility] [place] [phone] Marlyn Mixon MD 03/21/2025 Orders Only [facility] at [address] [place] [address] Marlyn Mixon MD 03/07/2025 7:30 AM CDT Ancillary Procedure [facility] [address] [place] [address] [place], [place] [address] [place] [phone] Palpitations (Primary Dx); Syncope and collapse; Status post placement of implantable loop recorder 02/11/2025 Documentation [facility] [address] [facility] [address] [place] [address] Yazan Browne MD 02/10/2025 10:44 AM CDT - 02/10/2025 6:56 PM CDT Hospital Encounter [facility] [address] [place] [phone] King Hernandez MD Nikolic, Jelena, MD Seizure-like activity (HCC) (Primary Dx); Seizure disorder, complex partial (HCC) [G40.209] Discharge Disposition: Left Against Medical Advice 02/09/2025 11:44 AM CDT - 02/09/2025 4:51 PM CDT Emergency [facility] Emergency Department [address] [place] [phone] Whit Cao MD Seizure-like activity (HCC) (Primary Dx) Discharge Disposition: Left Against Medical Advice 01/25/2025 10:15 AM CDT Office Visit [facility] Medical [facility] Cardiology [address] [facility] [address] [place] [address] Enrrique Ga MD Pericardial effusion (Primary Dx) 01/24/2025 7:45 AM CDT Ancillary Procedure [facility] [address] [place] [address] [place], [place] [address] [place] [phone] Palpitations (Primary Dx); Syncope and collapse; Status post placement of implantable loop recorder 01/07/2025 Telephone [facility] [address] [place] [phone] Sue Smith NP 01/07/2025 Results Follow-Up [facility] [address] [place] [address] Sue Smith NP Transthoracic Echo (TTE) Complete W Doppler/CF 01/06/2025 11:15 AM CDT Ancillary Procedure [facility] [address] [place] [address] of the chest 01/06/2025 Telephone [facility] [address] [place] [phone] Sue Smith NP from Last 3 Months Immunizations Immunization Administration [...] - 05/11/2015 BLADDER SURGERY 05/12/2018 - 05/11/2019 [place] ARTHRP KNE CONDYLE&PLATU MEDIAL&LAT COMPARTMENTS 03/15/2020 Left [place] [facility] KNEE ARTHROSCOPY ABDOMINAL SURGERY 1994 [...] on file Legal Sex Female 2:20 AM CRATE LINER Gender Identity Female 08/21/2020 9:29 PM CDT Sexual Orientation Straight 08/21/2020 9: 29 PM CDT 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 Not on file [...] Date Last Done Comments Depression Screening 1975 Regular Well Visit/Exam 18-64 1995 Breast Cancer Screening-Mammogram 02/28/2023 02/28/2022, 11/09/2020, 10/25/2019 Covid-19 Vaccine ( season) 2025 02/12/2022, 01/01/2021, 08/05/2020, Additional history exists Colon Cancer Screening-Colonoscopy 07/20/2030 07/20/2020 DTaP/Tdap/Td Vaccine (3 - Td or Tdap) 04/15/2031 04/15/2021, 09/11/2013 Hepatitis B Screening Completed 01/21/2025 Influenza Vaccine Completed 01/21/2025, , 12/24/2022, Additional history exists Hepatitis C Screening Completed 03/21/2025 Pneumococcal vaccine <65 Aged Out No longer eligible based on patient's age to complete this topic Procedures Procedure Name Priority Date/Time Associated Diagnosis Comments TRANSTHORACIC ECHO (TTE) COMPLETE W DOPPLER/CF WO CONTRAST Routine 03/29/2025 10:45 AM CRATE LINER Pericardial effusion XR SPINE LUMBAR COMPLETE 4 OR MORE VIEWS Schedule Routine, Read Routine (OP Routine) 03/21/2025 10:24 AM CRATE LINER Arthropathic psoriasis, unspecified (HCC) XR SACROILIAC JOINTS 3 OR MORE VIEWS Schedule Routine, Read Routine (OP Routine) 03/21/2025 10:24 AM CRATE LINER Arthropathic psoriasis, unspecified (HCC) XR HAND BILATERAL 3 OR MORE VIEWS OF EACH Schedule Routine, Read Routine (OP Routine) 03/21/2025 10:24 AM CRATE LINER Arthropathic psoriasis, unspecified (HCC) HR HLA TYPING (CLASS I AND CLASS II) Routine 03/21/2025 9:46 AM CRATE LINER HLA-B*27 TYPING FOR ANKYLOSING SPONDYLITIS Routine 03/21/2025 9:46 AM CRATE LINER EGFR Routine 03/21/2025 9:46 AM CRATE LINER DIFFERENTIAL AUTO Routine 03/21/2025 9:4 6 AM CRATE LINER RHEUMATOID FACTOR Routine 03/21/2025 9:4 6 AM CRATE LINER CRP (ACUTE PHASE) Routine 03/21/2025 9:4 6 AM CRATE LINER ASH SCREEN W/REFLEX GALINA+DSDNA Routine 03/21/2025 9:46 AM CRATE LINER CREATINE KINASE (CK), TOTAL Routine 03/21/2025 9:46 AM CRATE LINER ERYTHROCYTE SEDIMENTATION RATE Routine 03/21/2025 9:46 AM CRATE LINER COMPREHENSIVE METABOLIC PANEL Routine 03/21/2025 9:46 AM CRATE LINER G6PD QUALITATIVE WITH REFLEX TO QUANTITATIVE Routine 03/21/2025 9:46 AM CRATE LINER CYCLIC CITRUL PEPTIDE ANTIBODY, IGG Routine 03/21/2025 9:46 AM CRATE LINER CBC WITH AUTO DIFFERENTIAL Routine 03/21/2025 9:46 AM CRATE LINER TB TEST, QUANTIFERON GOLD Routine 03/21/2025 9:46 AM CRATE LINER HEPATITIS B SURFACE ANTIGEN Routine 03/21/2025 9:46 AM CRATE LINER HEPATITIS C ANTIBODY Routine 03/21/2025 9:46 AM CRATE LINER DEVICE CHECK - REMOTE Routine 03/08/2025 8:38 AM CDT Syncope and collapse Status post placement of implantable loop recorder EEG Routine 02/10/2025 4:55 PM CDT MRI [...] PM CDT Abnormal CT of the chest DIAGNOSTIC MAMMOGRAM BILATERAL W JAVAN Schedule Routine, Read Routine (OP Routine) 02/28/2022 11:30 AM CDT Mass of breast, unspecified laterality COLONOSCOPY 07/20/2020 9:05 AM CRATE LINER from Last 3 Months or Most Recently Relevant to Health Maintenance Results * TRANSTHORACIC ECHO (TTE) COMPLETE W DOPPLER/CF WO CONTRAST (03/29/2025 10:45 AM CRATE LINER) Estimated EF 50-55 % CONS SCIMAGE EF Mod BP 50 % CONS SCIMAGE Anatomical Region Laterality Modality Ultrasound 03/29/2025 10:2 6 AM CRATE LINER Narrative 03/29/2025 12:53 PM CRATE LINER [facility] Cardiology [address], [address], [place] [address] P:[phone] P:[phone] Echocardiographic Report Patient Name: CORRIE GARCIA C : 1975 Study Date: 03/29/2025 10:26:38 AM Sex: F Cattle Dehorner: DIEGO Location: EDW Ref Provider: SUE SMITH Height(Cm): 178 BSA: 2.12 Weight(Kg): 91.2 Heart Rate: 85 BP: 116 / 78 Quality: Good Order Provider: SUE SMITH PROCEDURES: Echocardiographic Report: Transthoracic echocardiogram with complete 2D, M-Mode, and color Doppler examination. With Strain Analysis. INDICATIONS: I31.39 Other pericardial effusion (noninflammatory). MEASUREMENTS: 2D/MM Value Range Doppler Value Range EF Mod BP 50 % [ 54 - 74 ] GIO Vmax 2.38 cm2 [ 2.00 - 4.00 ] EF Teich MM 44 % [ 54 - 74 ] AV Mean PG 6 mmHg Estimated EF 50-55 % AV Peak Jayy 1.63 m/s [ 1.00 - 1.70 ] LV GLS -16.98 % AV Peak PG 11 mmHg LVIDd 2D 5.05 cm [ 3.80 - 5.20 ] AV VTI 33.53 cm LVIDd MM 5.22 cm [ 3.80 - 5.20 ] LVOT Diam 2.03 cm [ 1.70 - 2.10 ] LVIDs 2D 3.86 cm [ 2.20 - 3.50 ] LVOT Peak Jayy 1.20 m/s [ 0.70 - 1.10 ] LVIDs MM 4.08 cm [ 2.20 - 3.50 ] LVOT VTI 24.38 cm LVPWd 2D 1.05 cm [ 0.60 - 0.90 ] MV E Peak Jayy 0.92 m/s [ 0.60 - 1.30 ] LVPWd MM 1.03 cm [ 0.60 - 0.90 ] MV A Peak Jayy 1.05 m/s [ 1.00 - 1.20 ] IVSd 2D 0.88 cm [ 0.60 - 0.90 ] MV Decel Time 103 msec [ 104 - 258 ] IVSd MM 1.16 cm [ 0.60 - 0.90 ] PV Peak Jayy 0.93 m/s [ 0.40 - 0.80 ] LA Dimension MM 2.97 cm [ 2.70 - 3.80 ] TR Peak Jayy 2.15 m/s [ 1.00 - 2.80 ] AoR Diam MM 3.60 cm [ 2.70 - 3.30 ] TR Peak PG 19 mmHg LA Volume 57.62 ml [ 22.00 - 52.00 ] RV S` 0.08 m/s LA Volume Index 27 cc/m2 [ 16 - 28 ] Lateral E` 0.09 m/s [ 0.10 - 0.15 ] ACS MM 2.19 cm Septal E` 0.08 m/s [ 0.08 - 0.15 ] RA Volume 53.12 ml E` 0.09 m/s E/E` 11 Tapse 2.23 cm [ 1.71 - 5.00 ] 2D/MM Value Range Doppler Value Range - FINDINGS: Interpretation Site: Exam was interpreted at [facility]. Left Ventricle: Mild concentric left ventricular hypertrophy. Mild enlargement of left ventricle cavity. Left ventricular systolic function at the lower limit of normal. Impaired diastolic relaxation Grade I. Ejection fraction is measured at 50 %. Ejection Fraction is visually estimated to be 50-55 %. Global Longitudinal Strain is -17 %. GLS is borderline. Right Ventricle: Normal right ventricular size. Normal right ventricular systolic function. Left Atrium: The left atrium is normal in size. Right Atrium: The right atrium is normal in size. Atrial Septum: Normal atrial septum. Mitral Valve: Normal appearance of the mitral valve. Mild mitral valve regurgitation. There is no hemodynamically significant mitral stenosis [...] Trivial regurgitation in the pulmonic valve. Pericardium: Trivial to small pericardial effusion. Aorta: Normal aortic root. IVC: Normal size and normal respiratory collapse consistent with normal right atrial pressure (<5 mmHg). CONCLUSIONS: Mild concentric left ventricular hypertrophy. Mild enlargement of left ventricle cavity. Left ventricular systolic function at the lower limit of normal. Impaired diastolic relaxation Grade I. Ejection fraction is measured at 50 %. Ejection Fraction is visually estimated to be 50-55 %. Global Longitudinal Strain is -17 %. GLS is borderline. Mild mitral valve regurgitation. Mild tricuspid regurgitation. Trivial to small pericardial effusion. Normal sinus rhythm. Electronically Signed By: Shekhar Garcia MD 03/29/2025 12:52:52 PM CRATE LINER Procedure Note Shekhar Garcia MD - 03/29/2025 [facility] Cardiology [address] [facility], [address], [place] [address] [phone] P:[phone] Echocardiographic Report Patient Name: CORRIE GARCIA C : 1975 Study Date: 03/29/2025 10:26:38 AM Sex: F Cattle Dehorner: Location: EDW Ref Provider: SUE SMITH Height(Cm): 178 BSA: 2.12 Weight(Kg): 91.2 Heart Rate: 85 BP: 116 / 78 Quality: Good Order Provider: SUE SMITH PROCEDURES: Echocardiographic Report: Transthoracic echocardiogram with complete 2D, M-Mode, and color Dopplerexamination. With Strain Analysis. INDICATIONS: I31.39 Other pericardial effusion (noninflammatory). MEASUREMENTS: 2D/MM Value Range Doppler ValueRange EF Mod BP 50 % [ 54 - 74 ] GIO Vmax 2.38cm2 [ 2.00 - 4.00 ] EF Teich MM 44 % [ 54 - 74 ] AV Mean PG 6mmHg Estimated EF 50-55 % AV Peak Jayy 1.63m/s [ 1.00 - 1.70 ] LV GLS -16.98 % AV Peak PG 11mmHg LVIDd 2D 5.05 cm [ 3.80 - 5.20 ] AV VTI 33.53cm LVIDd MM 5.22 cm [ 3.80 - 5.20 ] LVOT Diam 2.03cm [ 1.70 - 2.10 ] LVIDs 2D 3.86 cm [ 2.20 - 3.50 ] LVOT Peak Jayy 1.20m/s [ 0.70 - 1.10 ] LVIDs MM 4.08 cm [ 2.20 - 3.50 ] LVOT VTI 24.38cm LVPWd 2D 1.05 cm [ 0.60 - 0.90 ] MV E Peak Jayy 0.92m/s [ 0.60 - 1.30 ] LVPWd MM 1.03 cm [ 0.60 - 0.90 ] MV A Peak Jayy 1.05m/s [ 1.00 - 1.20 ] IVSd 2D 0.88 cm [ 0.60 - 0.90 ] MV Decel Time 103msec [ 104 - 258 ] IVSd MM 1.16 cm [ 0.60 - 0.90 ] PV Peak Jayy 0.93m/s [ 0.40 - 0.80 ] LA Dimension MM 2.97 cm [ 2.70 - 3.80 ] TR Peak Jayy 2.15m/s [ 1.00 - 2.80 ] AoR Diam MM 3.60 cm [ 2.70 - 3.30 ] TR Peak PG 19mmHg LA Volume 57.62 ml [ 22.00 - 52.00 ] RV S` 0.08m/s LA Volume Index 27 cc/m2 [ 16 - 28 ] Lateral E` 0.09m/s [ 0.10 - 0.15 ] ACS MM 2.19 cm Septal E` 0.08m/s [ 0.08 - 0.15 ] RA Volume 53.12 ml E` 0.09m/s E/E` 11 Tapse 2.23 cm [ 1.71 - 5.00 ] 2D/MM Value Range Doppler ValueRange - FINDINGS: Interpretation Site: Exam was interpreted at [facility]. Left Ventricle: Mild concentric left ventricular hypertrophy. Mild enlargement of leftventricle cavity. Left ventricular systolic function at the lower limit of normal. Impaireddiastolic relaxation Grade I. Ejection fraction is measured at 50 %. EjectionFraction is visually estimated to be 50-55 %. Global Longitudinal Strain is -17 %. GLS isborderline. Right Ventricle: Normal right ventricular size. Normal right ventricular systolicfunction. Left Atrium: The left atrium is normal in size. Right Atrium: The right atrium is normal in size. Atrial Septum: Normal atrial septum. Mitral Valve: Normal appearance of the mitral valve. Mild mitral valve regurgitation.There is no hemodynamically significant mitral stenosis by [...] stenosis. Trivialregurgitation in the pulmonic valve. Pericardium: Trivial to small pericardial effusion. Aorta: Normal aortic root. IVC: Normal size and normal respiratory collapse consistent with normal rightatrial pressure (<5 mmHg). CONCLUSIONS: Mild concentric left ventricular hypertrophy. Mild enlargement of leftventricle cavity. Left ventricular systolic function at the lower limit of normal. Impaireddiastolic relaxation Grade I. Ejection fraction is measured at 50 %. EjectionFraction is visually estimated to be 50-55 %. Global Longitudinal Strain is -17 %. GLS isborderline. Mild mitral valve regurgitation. Mild tricuspid regurgitation. Trivial to small pericardial effusion. Normal sinus rhythm. Electronically Signed By: Shekhar Garcia MD 03/29/2025 12:52:52 PM CRATE LINER Sue Smith NP CV ECHO PROCEDURES Final Result * XR Hand Bilateral 3 or More Views of Each (03/21/2025 10:24 AM CRATE LINER) Anatomical Region Laterality Modality Upper Extremities, Hand Digital Radiography 03/21/2025 11:2 7 AM CRATE LINER Impressions 03/21/2025 11:27 AM CRATE LINER There is mild periarticular osteopenia both hands with mild degenerative changes within bilateral 1st MCP joint and each IP joints without acute fracture or dislocation. Electronically signed by: Juani Hennessy M.D. Narrative 03/21/2025 11:27 AM CRATE LINER BILATERAL HANDS 3 OR MORE VIEWS, DATE: 03/21/2025 10:00 AM INDICATION: Psoriatic arthritis. L 40.50 COMPARISON: 11/15/2020 TECHNIQUE: AP lateral and oblique views of both hands FINDINGS: Right hand: There is mild periarticular osteopenia. No acute fractures or dislocation. Mild degenerative narrowing of the 1st MCP joint and IP joints throughout each digit. Soft tissues unremarkable. Left hand: There is mild periarticular osteopenia. Mild degenerative changes within the 1st MCP joint and each IP joint throughout each digit. No acute fractures or dislocation. Procedure Note Juani Hennessy MD - 03/21/2025 BILATERAL HANDS 3 OR MORE VIEWS, DATE: 03/21/2025 10:00 AM INDICATION: Psoriatic arthritis. L 40.50 COMPARISON: 11/15/2020 TECHNIQUE: AP lateral and oblique views of both hands FINDINGS: Right hand: There is mild periarticular osteopenia. No acute fractures or dislocation. Mild degenerative narrowing of the 1st MCP joint and IP joints throughout each digit. Soft tissues unremarkable. Left hand: There is mild periarticular osteopenia. Mild degenerative changes within the 1st MCP joint and each IP joint throughout each digit. No acute fractures or dislocation. IMPRESSION: There is mild periarticular osteopenia both hands with mild degenerative changes within bilateral 1st MCP joint and each IP joints without acute fracture or dislocation. Electronically signed by: Juani Hennessy M.D. Marlyn Mixon MD IMG XR PROCEDURES Final Result * XR Sacroiliac Joints 3 or More Views (03/21/2025 10:24 AM CRATE LINER) Anatomical Region Laterality Modality Pelvis, Body N/A Digital Radiogra phy 03/21/2025 11:2 9 AM CRATE LINER Impressions 03/21/2025 11:29 AM CRATE LINER FINDINGS /IMPRESSION: Air and stool obscuring details of sacrum. There is mild sclerosis along the iliac greater than sacral aspect of the bilateral SI joints left more compared to right. There is mild degenerative spurring inferior left and right SI joint without ankylosis. There is spina bifida occulta distal sacrum. Mild osteitis pubis with sclerosis left pubic symphysis. Electronically signed by: Juani Hennessy M.D. Narrative 03/21/2025 11:29 AM CRATE LINER SI JOINTS 3 OR MORE VIEWS, DATE: 03/21/2025 10:00 AM INDICATION: Low back pain. Psoriatic arthritis. L 40.50. COMPARISON: None TECHNIQUE: AP up angle and both oblique views Procedure Note Juani Hennessy MD - 03/21/2025 SI JOINTS 3 OR MORE VIEWS, DATE: 03/21/2025 10:00 AM INDICATION: Low back pain. Psoriatic arthritis. L 40.50. COMPARISON: None TECHNIQUE: AP up angle and both oblique views IMPRESSION: FINDINGS /IMPRESSION: Air and stool obscuring details of sacrum. There is mild sclerosis along the iliac greater than sacral aspect of the bilateral SI joints left more compared to right. There is mild degenerative spurring inferior left and right SI joint without ankylosis. There is spina bifida occulta distal sacrum. Mild osteitis pubis with sclerosis left pubic symphysis. Electronically signed by: Juani Hennessy M.D. Marlyn Mixon MD IMG XR PROCEDURES Final Result * XR Spine Lumbar Complete 4 or More Views (03/21/2025 10:24 AM CRATE LINER) Anatomical Region Laterality Modality Spine N/A Digital Radiogra phy 03/22/2025 8:49 AM CRATE LINER Impressions 03/22/2025 8:49 AM CRATE LINER 1. Spondylosis as detailed above. COMMENT: Please see above for additional findings. Electronically signed by: Tong Wright M.D. Narrative 03/22/2025 8:49 AM CRATE LINER XR SPINE LUMBAR 4 OR MORE VIEWS HISTORY: L40.50 arthropathic psoriasis COMPARISON: None available. 5 views including an AP, lateral, coned lateral of the lower lumbar spine, oblique views were presented for evaluation. FINDINGS: Surgical clips are noted in the right upper quadrant which may represent a cholecystectomy. There are also surgical clips and sutures in the left upper quadrant and left abdomen. The pedicles and psoas margins are maintained. The arc of lumbar lordosis is within expected limits. The alignment of the lumbar spine is within expected limits. There is no evidence of compression fracture or fracture. Moderate degenerative disc disease is noted at the L4-L5 and mild disease at L3-L4. Mild degenerative spur formation is noted anteriorly at the L4 and L5 levels. Sclerosis consistent with degenerative joint disease is noted at L3-L4 through L5-S1. The pars articularis appear to be intact bilaterally. The sacroiliac joints appear to be grossly intact bilaterally. Procedure Note Tong Wright MD - 03/22/2025 XR SPINE LUMBAR 4 OR MORE VIEWS HISTORY: L40.50 arthropathic psoriasis COMPARISON: None available. 5 views including an AP, lateral, coned lateral of the lower lumbar spine, oblique views were presented for evaluation. FINDINGS: Surgical clips are noted in the right upper quadrant which may represent a cholecystectomy. There are also surgical clips and sutures in the left upper quadrant and left abdomen. The pedicles and psoas margins are maintained. The arc of lumbar lordosis is within expected limits. The alignment of the lumbar spine is within expected limits. There is no evidence of compression fracture or fracture. Moderate degenerative disc disease is noted at the L4-L5 and mild disease at L3-L4. Mild degenerative spur formation is noted anteriorly at the L4 and L5 levels. Sclerosis consistent with degenerative joint disease is noted at L3-L4 through L5-S1. The pars articularis appear to be intact bilaterally. The sacroiliac joints appear to be grossly intact bilaterally. IMPRESSION: 1. Spondylosis as detailed above. COMMENT: Please see above for additional findings. Electronically signed by: Tong Wright M.D. Marlyn Mixon MD IMG XR PROCEDURES Final Result * ASH screen w/rflx GALINA+dsDNA (03/21/2025 9:46 AM CRATE LINER) ASH Negative Comment: Interpretive Data Normal range for ASH Qualitative [...] last revised on 2020. Testing performed by: [facility], [address] [place] [address]., [id number] Blood 03/21/2025 9:46 AM CRATE LINER 03/21/2025 5:20 PM CRATE LINER us Marlyn Mixon MD LAB BLOOD ORDERABLES Final Resul t Performing Organization Address [facility] de Phone Number [facility] [address] Department [place] [address] * G6PD qualitative with reflex to quantitative (03/21/2025 9:46 AM CRATE LINER) G6PD Normal Normal Comment: Interp data: G6PD activity should be interpreted in the context of a patient's hematocrit. Hematocrit < 20% may lead to a falsely deficient result, while hematocrit > 50% may lead to a falsely normal result. Current interpretive data was last revised on 2019. Testing performed by: [facility], [address] [place] [address]., [id number] Blood 03/21/2025 9:46 AM CRATE LINER 03/21/2025 5:20 PM CRATE LINER Result Reba Mixon MD LAB BLOOD ORDERABLES Final Resul t Performing Organization Address [facility] de Phone Number [facility] [facility] [address] Department [place] [address] * HLA-B*27 typing for ankylosing spondylitis (03/21/2025 9:46 AM CRATE LINER) HLA-B27 interp HLA-B*27 is Negative. HISTOTRAC 03/21/2025 9:46 AM CRATE LINER 03/23/2025 10:34 AM CRATE LINER Narrative HISTOTRAC - 03/23/2025 10:34 AM CRATE LINER HLA-B typing is performed using the reverse sequence specific oligonucleotide (r-SSO) method, which is based on an FDA approved IVD kit and validated by the [facility] HLA laboratory. Interpretive comments: HLA-B*27 positivity confers increased risk for ankylosing spondylitis or nonradiographic axial spondyloarthritis. The absence of HLA-B*27 may help rule out these diagnoses Expected: HLA-B*27 has been found in 74% to 89% of patients with either nonradiographic axial spondyloarthritis or ankylosing spondylitis. The absolute risk of spondyloarthritis in persons with HLA-B*27 is 2% to 10%. (N Engl J Med 2016;374:2563-74) Testing performed at the [facility], [address] [place] [address], 5th floor, [place], [address]. IA # [id number]. Paulina Holder, Ph.D., Radio Frequency Engineer, HLA Laboratory James Browne M.D., Ph.D., Tube Cutter Operator, HLA Laboratory Ioana Nassar, Ph.D., CLIA Tube Cutter Operator, [facility] Current methodology and interpretive comments were last revised on 12/02/2016 us Marlyn Mixon MD LAB BLOOD ORDERABLES Edited Resu lt - Final HISTOTRAC * HR HLA Typing (Class I and Class II) (03/21/2025 9:46 AM CRATE LINER) NGS HISTOTRAC A First Allele A*02:01 HISTOTRAC [...] Second Allele DPA1*02:01 HISTOTRAC 03/21/2025 9:46 AM CRATE LINER 03/31/2025 9:19 AM CRATE LINER Narrative HISTOTRAC - 03/31/2025 9:19 AM [facility] DNA was extracted from whole blood or buccal cell specimens, and relevant genomic regions were amplified by polymerase chain reaction (PCR). HLA typing was performed on PCR amplicons by next-generation sequencing (NGS) using the AllType NGS assay ([employer]) on the VODECLIC platform, which outperforms the [place] Sequence-based typing (SBT) but is not FDA approved for HLA typing. The sequence-specific primers (SSP) method may be employed to resolve ambiguity using FDA approved IVD products ([place] SSP) as indicated. The performance of the above methods are validated by the [facility]. For typing results reported using [...] viewed at http://hla.alleles.org/alleles/g_groups.html. Testing performed at the [facility], [address] [place] [address], 5th floor, [place], [address]. CLIA # [id number]. Paulina Holder, Ph.D., Radio Frequency Engineer, HLA Laboratory James Browne M.D., Ph.D., Tube Cutter Operator, HLA Laboratory Ioana Nassar, Ph.D., [place] Tube Cutter Operator, [facility] Current methodology comment last revised on 02/08/2020. us Marlyn Mixon MD LAB BLOOD ORDERABLES Final Resul t HISTOTRAC * eGFR (03/21/2025 9:46 AM CRATE LINER) eGFR >90 >=60 mL/min/1. 73 m2 Comment: [...] interpretive data was last reviewed 2021. Blood 03/21/2025 9:46 AM CRATE LINER 03/21/2025 2:48 PM CRATE LINER us Marlyn Mixon MD LAB BLOOD ORDERABLES Final Resul t [facility] [address] Department [place] [address] * Differential, auto (03/21/2025 9:46 AM CRATE LINER) Neutrophil abs 2.72 1.50 - 6.50 K/cumm Imm gran abs 0.02 0.00 - 0.10 K/cumm [facility] Lymphocyte abs 1.61 0.80 - 3.30 K/cumm [facility] Monocyte abs 0.53 0.20 - 0.80 K/cumm [facility] Eosinophil abs 0.19 0.00 - 0.50 K/cumm [facility] Basophil abs 0.03 0.00 - 0.10 K/cumm [facility] Neutrophil pct 53.3 % [facility] Comment: Interpretive Data Percent cell count reference ranges are not reported, since discordance with absolute values may lead to misinterpretation of CBC data. Current Interpretive Data was last revised on 2017. Imm gran pct 0.4 % [facility] Comment: Interpretive Data Percent cell count reference ranges are not reported, since discordance with absolute values may lead to misinterpretation of CBC data. Current Interpretive Data was last revised on 2017. Lymphocyte pct 31.6 % [facility] Comment: Interpretive Data Percent cell count reference ranges are not reported, since discordance with absolute values may lead to misinterpretation of CBC data. Current Interpretive Data was last revised on 2017. Monocyte pct 10.4 % [facility] Comment: Interpretive Data Percent cell count reference ranges are not reported, since discordance with absolute values may lead to misinterpretation of CBC data. Current Interpretive Data was last revised on 2017. Eosinophil pct 3.7 % [facility] Comment: Interpretive Data Percent cell count reference ranges are not reported, since discordance with absolute values may lead to misinterpretation of CBC data. Current Interpretive Data was last revised on 2017. Basophil pct 0.6 % [facility] Comment: Interpretive Data Percent cell count reference ranges are not reported, since discordance with absolute values may lead to misinterpretation of CBC data. Current Interpretive Data was last revised on 2017. Blood 03/21/2025 9:46 AM CRATE LINER 03/21/2025 1:11 PM CRATE LINER us Marlyn Mixon MD LAB BLOOD ORDERABLES Final Resul t [facility] [address] Department [place] [address] * TB test, quantiferon gold (03/21/2025 9:46 AM CRATE LINER) [facility] Quantiferon TB Gold Negative Negative [place] ref [facility] Comment: No interferon-gamma response to M. tuberculosis antigens was detected. Latent infection with M. tuberculosis is unlikely. A single negative result does not exclude infection with M. tuberculosis. In patients at high risk for M.tuberculosis infection, a second test should be considered in accordance with the 2017 ATS/IDSA/CDC Clinical Practice Guidelines for Diagnosis of Tuberculosis in Adults and Children [Lewinsohn DM et. al. Clin. Infect. Dis. 2017;64(2):111-115]. The reference range for the 'TB1 Ag minus Nil Result' and 'TB2 Ag minus Nil Result' is an Interferon-gamma level <0.35 IU/mL. TB-Nil 0.02 IUnits/mL [facility] TB2-Nil 0.01 IUnits/mL [facility] Mitogen-Nil 9.99 IUnits/mL [facility] NIL 0.01 IUnits/mL [facility] Comment: Test Performed by: [place] [address] Catalyst Concentration Operator: Onel Hodge Ph.D.; CLIA# [id number] Blood 03/21/2025 9:46 AM CRATE LINER 03/21/2025 12:52 PM CRATE LINER us Marlyn Mixon MD LAB BLOOD ORDERABLES Final Resul t [facility] [address] Department [place] [address] [place] ref [facility] * (ABNORMAL) CBC with auto differential (03/21/2025 9:46 AM CRATE LINER) [facility] WBC 5.10 3.80 - 9.90 K/cumm Hgb 12.3 11.9 - 15.5 g/dL [facility] Hct 41.5 35.6 - 45.5 % [facility] Plt 379 150 - 400 K/cumm [facility] MPV 11.5 9.1 - 12.3 fL [facility] RBC 4.36 3.90 - 5.20 M/cumm [facility] MCV 95.2 81.3 - 96.4 fL [facility] MCH 28.2 27.1 - 33.3 pg [facility] MCHC 29.6(L) 32.3 - 35.7 g/dL [facility] RDW CV 15.6(H) 11.1 - 14.9 % [facility] RDW SD 55.2(H) 35.7 - 48.1 fL [facility] NRBC abs 0.00 0.00 - 0.01 K/cumm [facility] Blood 03/21/2025 9:46 AM CRATE LINER 03/21/2025 1:11 PM CRATE LINER us Marlyn Mixon MD LAB BLOOD ORDERABLES Final Resul t Performing Organization Address [facility] Co de Phone Number [facility] [address] [place] [address] * Hepatitis C antibody Blood (03/21/2025 9:46 AM CRATE LINER) Hep C Ab Nonreactive Nonreactive Comment: Interpretive Data Nonreactive: Antibodies to HCV not [...] Interpretive data was last revised on 2019. Blood 03/21/2025 9:46 AM CRATE LINER 03/21/2025 1:09 PM CRATE LINER us Marlyn Mixon MD LAB MICROBIOLOGY - GENERAL ORDER SUSAN Final Result [facility] [address] Department [employer] [place], [place] [id number] * Cyclic citrul peptide antibody, IgG (03/21/2025 9:46 AM CRATE LINER) Pathologist [facility] CCP Ab <0.5 <=2.9 units/mL Comment: Interpretive data Negative: <3 units/mL Positive: > or equal to 3 units/mL Current interpretive data was last revised on 2016. Testing performed by: [facility], [address] [place]., [address] Blood 03/21/2025 9:46 AM CRATE LINER 03/21/2025 5:20 PM CRATE LINER us Marlyn Mixon MD LAB BLOOD ORDERABLES Final Resul t Performing Organization Address [facility] Co de Phone Number [facility] [address] [place] [address] * Hepatitis B Surface Antigen Blood (03/21/2025 9:46 AM CRATE LINER) Pathologist [facility] HepBsAg Nonreactive Nonreactive Blood 03/21/2025 9:46 AM CRATE LINER 03/21/2025 1:09 PM CRATE LINER Result Reba Mixon MD LAB MICROBIOLOGY - GENERAL ORDER SUSAN Final Result Performing Organization Address [facility] Co de Phone Number [facility] [address] Department [place] [address] * (ABNORMAL) Erythrocyte sedimentation rate (03/21/2025 9:46 AM CRATE LINER) Pathologist [facility] Erythrocyte sedimentation rate 24(H) 1 - 20 mm/hr Blood 03/21/2025 9:46 AM CRATE LINER 03/21/2025 1:11 PM CRATE LINER Result Reba Mixon MD LAB BLOOD ORDERABLES Final Resul t Performing Organization Address [facility] Co de Phone Number [facility] [address] Department [place] [address] * Rheumatoid factor (03/21/2025 9:46 AM CRATE LINER) [facility] Rheumatoid factor, quant <10 <=15 IUnits/mL Blood 03/21/2025 9:46 AM CRATE LINER 03/21/2025 2:48 PM CRATE LINER Result Reba Mixon MD LAB BLOOD ORDERABLES Final Resul t Performing Organization Address [facility] de Phone Number [facility] [address] [facility] [place] [address] * CRP (acute phase) (03/21/2025 9:46 AM CRATE LINER) [facility] CRP 3.1 <=10.0 mg/L Blood 03/21/2025 9:46 AM CRATE LINER 03/21/2025 2:48 PM CRATE LINER Result Reba Mixon MD LAB BLOOD ORDERABLES Final Resul t Performing Organization Address [facility] de Phone Number [facility] [address] Department [place] [address] * Creatine kinase (CK), total (03/21/2025 9:46 AM CRATE LINER) [facility] CK 45 30 - 200 Units/L Blood 03/21/2025 9:46 AM CRATE LINER 03/21/2025 2:48 PM CRATE LINER Result Reba Mixon MD LAB BLOOD ORDERABLES Final Resul t Performing Organization Address [facility] de Phone Number [facility] [address] [facility] [employer] [place], [place] [id number] * (ABNORMAL) Comprehensive metabolic panel (03/21/2025 9:46 AM CRATE LINER) [facility] Sodium 138 135 - 145 mmol/L Potassium, pl 4.5 3.3 - 4.9 mmol/L [facility] Chloride 100 97 - 110 mmol/L [facility] CO2 25 22 - 32 mmol/L [facility] Anion gap 13 2 - 15 mmol/L [facility] BUN 12 6 - 25 mg/dL [facility] Creatinine 0.59(L) 0.60 - 1.10 mg/dL [facility] Glucose 79 70 - 199 mg/dL [facility] Comment: Interpretive Data Fasting glucose >/= 126 [...] interpretive data was last revised 2022. Calcium 9.6 8.5 - 10.3 mg/dL [facility] Bilirubin, total 0.4 0.1 - 1.2 mg/dL [facility] Protein, pl 7.6 6.5 - 8.5 g/dL [facility] Albumin 4.2 3.5 - 5.0 g/dL [facility] Alk phos 75 40 - 130 Units/L [facility] ALT 18 7 - 45 Units/L [facility] AST 26 10 - 45 Units/L [facility] Blood 03/21/2025 9:46 AM CRATE LINER 03/21/2025 2:48 PM CRATE LINER us Marlyn Mixon MD LAB BLOOD ORDERABLES Final Resul t [facility] [address] Department [place] [address] * DEVICE CHECK - REMOTE (03/08/2025 8:38 AM CDT) Anatomical Region Laterality Modality Other Narrative 03/10/2025 2:21 PM CDT [employer] [id number] Loop Recorder. Dx; Syncope, Palpitations. DOI 02/11/2022Tanner. Carelink remote f/u. Routine ILR remote. Normal device function. Battery function-good. Presenting rhythm: NSR Medications: No anticoagulation or cardiac meds Counters since last scheduled transmission on 01/24/25. No auto or patient recorded episodes noted. See scanned report. CareLink remote f/u 04/18/25. Nestor Romero RN us Shekhar Garcia MD CV CARDIAC SERVICES [facility] Final Result * EEG (02/10/2025 4:55 PM CDT) Anatomical [...] Markos Marmolejo M.D. JALEESA: JALEESA Report ID: [id number] Reading Location: [id number] Procedure Note Markos Marmolejo MD - 02/10/2025 EXAM DESCRIPTION: MRI BRAIN WO CONTRAST REASON FOR STUDY: Reported new onset seizures over the past week. Noprovided focal neurologic deficits. No known trauma. No provided past medical or surgical history. TECHNIQUE: Multiplanar imaging includes non-contrasted T1, T2, FLAIR, and diffusion with ADC map sequences. Additional sequence(s) sensitive [employer]. Images stored on PACS. COMPARISON: CT head [...] Markos Marmolejo M.D. JALEESA: JALEESA Report ID: [id number] Reading Location: [id number] King Hernandez MD IMG MRI PROCEDURES Final [...] Neel Mahoney M.D. AM: AM Report ID: [id number] Reading Location: [id number] Procedure Note Neel Mahoney MD - 02/09/2025 [...] Neel Mahoney M.D. AM: AM Report ID: [id number] Reading Location: [id number] Benigno ARVIZU [facility] CT PROCEDURES Final Resu lt * Urinalysis reflex to microscopic and culture Urine (02/09/2025 11:15 AM CDT) Color, ur Yellow Yellow Clarity, ur Clear Clear [facility] ([place]) Specific gravity, ur 1.014 1.003 - 1.030 [facility] ([place]) pH, urine 7.5 [facility] ([place]) Comment: Interpretive Data U rine pH is affected by diet, medications, systemic acid-base disturbances, and renal tubular function. pH may affect urinary stone formation. For example, urine pH below 6.0 may help reduce the tendency for calcium phosphate stones and pH greater than 6.0 may reduce the tendency for uric acid stone formation. Source: [facility] Current Interpretive Data was last revised on 2017 Protein, ur ql Negative Negative [facility] ([place]) Glucose, ur ql Negative Negative [facility] ([place]) Ketones, ur Negative Negative [facility] ([place]) Bilirubin, ur Negative Negative [facility] ([place]) Blood, ur Negative Negative [facility] ([place]) Urobilinogen, ur <2.0 <2.0 mg/dL [facility] ([place]) Nitrite, ur Negative Negative [facility] ([place]) Leukocyte esterase, ur Negative Negative [facility] ([place]) UA reflex comment Reflex conditions for microscopic UA and culture not met. [facility] ([place]) Urine 02/09/2025 11:1 5 AM CDT 02/09/2025 11:27 AM CDT Benigno ARVIZU LAB MICROBIOLOGY - GENERAL O RDERABLES Final Result [facility] ([place]) [address] [facility] Department [place] [address] * (ABNORMAL) Drugs of Abuse Screen, Urine [...] Final R esult [facility] ([place]) [address] [facility] Department [place] [address] * XR Shoulder Left 2 or More [...] by Jose De Jesus Cardona M.D. KR: NTEO Report ID: [id number] Reading Location: [id number] Procedure Note Jose De Jesus Cardona MD [...] Jesus Cardona M.D. KR: NETO Report ID: [id number] Reading Location: [id number] us Benigno ARVIZU IMG XR PROCEDURES Final Resu lt * ECG 12 lead (02/09/2025 10:59 AM CDT) 02/09/2025 10:5 9 AM CDT Narrative [facility] - 02/10/2025 12:06 PM CDT Vent Rate: 129 bpm RR Interval: 464 msec OK Interval: 148 msec QRS Duration: 97 msec QT Interval: 313 msec QTC Interval: 389 msec P-R-T [place]: 81 - 86 - 50 degrees IMPRESSION: SINUS TACHYCARDIA ABNORMAL RHYTHM ECG Electronically Signed By: Fran Valdivia MD Benigno ARVIZU ECG ORDERABLES Final Result [facility] * eGFR (02/09/2025 10:45 AM CDT) [...] BLOOD ORDERABLES Final R esult [facility] ([place]) [address] [facility] Department [place] [address] * Differential, auto (02/09/2025 10:45 AM CDT) [...] Neutrophil pct 48.3 % [facility] ([place]) Comment: Interpretive [...] Final R esult [facility] ([place]) 1 [facility] [place] [address] * (ABNORMAL) CBC with auto differential (02/09/2025 10:45 AM CDT) [facility] WBC 5.22 3.80 - 9.90 K/cumm Hgb [...] Final R esult [facility] ([place]) 1 [facility] [place] [address] * Ethanol (02/09/2025 10:45 AM CDT) [facility] Ethanol <10 <=10 mg/dL [facility] ([place]) Comment: Interpretive Data Legal limit of intoxication > or = 80 mg/dL Levels > or = 400 mg/dL are potentially TOXIC. Current interpretive data was last revised on 2018. Blood 02/09/2025 10:4 5 AM CDT 02/09/2025 10:52 AM CDT Benigno ARVIZU LAB BLOOD ORDERABLES Final R esult Performing Organization Address City/[facility]/ZIP Co de Phone Number [facility] ([place]) [address] [facility] [place] [address] * Acetaminophen level (02/09/2025 10:45 AM CDT) Acetaminophen <5 <=5 mcg/mL [facility] ([place]) Comment: Markedly elevated levels of Acetaminophen and [...] after ingestion Consult toxicology or poison control ([phone]) for unknown ingestion time. Current interpretive data was last revised 2023. Blood 02/09/2025 10:4 5 AM CDT 02/09/2025 10:52 AM CDT Benigno ARVIZU LAB BLOOD ORDERABLES Final R esult Performing Organization Address City/[facility]/ZIP Co de Phone Number [facility] ([place]) [address] [facility] [place] [address] * Salicylate level (02/09/2025 10:45 AM CDT) Salicylate <5.0 <=5.0 mg/dL [facility] ([place]) Comment: Interpretive Data Toxic: 30 mg/dL or greater. Current interpretive data was last revised 2023. Blood 02/09/2025 10:4 5 AM CDT 02/09/2025 10:52 AM CDT us Benigno ARVIZU LAB BLOOD ORDERABLES Final R esult [facility] ([place]) 1 [facility] Department [place] [address] * Comprehensive metabolic panel (02/09/2025 10:45 AM CDT) Sodium 135 135 - 145 mmol/L [facility] ([place]) Potassium, pl 4.6 3.3 - [...] BLOOD ORDERABLES Final R esult [facility] ([place]) 1 [facility] Department [place] [address] * DEVICE CHECK - REMOTE (01/25/2025 12:05 PM CDT) Anatomical Region Laterality Modality Other Narrative 02/17/2025 2:25 PM CDT [employer] [id number] Loop Recorder. Dx; Syncope, Palpitations. DOI 02/11/2022Tanner. Carelink remote f/u. Routine ILR remote. Normal device function. Battery function-good Presenting rhythm: Sinus tachycardia Medications: No anticoagulation or cardiac meds Counters since last scheduled transmission on 12/13/24. --0 Tachy --0 Krish --0 Pause --1 Symptom - symptom report correlates with sinus tachycardia --0 AF See scanned report. CareLink remote f/u 03/07/25. Nestor Romero, FLORIDALMA Shekhar Garcia MD CV CARDIAC SERVICES [facility] Final Result * TRANSTHORACIC ECHO (TTE) COMPLETE W DOPPLER/CF WO CONTRAST (01/06/2025 12:27 PM CDT) Estimated EF 50 % CONS SCIMAGE EF Mod BP 48 % CONS SCIMAGE Anatomical Region Laterality Modality Ultrasound 01/06/2025 11:1 4 AM CDT Narrative 01/06/2025 12:59 PM CDT [facility] Cardiology [address] [facility] [address], [place] [address] [address] [facility] [address], [place] [address] P:[phone] P:[phone] Echocardiographic Report Patient Name: CORRIE GARCIA C : 1975 Study Date: 01/06/2025 11:14:13 AM Sex: F Cattle Dehorner: Hattie Gomez (Hemal)(CT), [facility] Location: [place] Ref Provider: SUE SMITH Height(Cm): 178 BSA: [...] FINDINGS: Interpretation Site: Exam was interpreted at [facility]. Left Ventricle: Normal left ventricular size. Mild [...] Procedure Note Shekhar Garcia MD - 01/06/2025 [facility] Medical [facility] Cardiology [address] [facility] [address], [place] [address] [address] [facility] [address], [place] [address] P:[phone] P:[phone] Echocardiographic Report Patient Name: CORRIE GARCIA C : 1975 Study Date: 01/06/2025 11:14:13 AM Sex: F Cattle Dehorner: Hattie Smith)([place]), [facility] Location: [facility] Provider: SUE SMITH Height(Cm): 178 BSA: [...] FINDINGS: Interpretation Site: Exam was interpreted at [facility]. Left Ventricle: Normal left ventricular size. Mild [...] 01/06/2025 12:58:57 PM CDT Sue Smith NP ECHO PROCEDURES Final Result * Diagnostic Mammogram Bilateral W [...] Electronically signed by: Polly Ramesh M.D. Result [facility] Shabnam Graf MD PhD IMG MAMMO PROCEDURES Final Result * COLONOSCOPY (07/20/2020 9:05 AM CRATE LINER) Anatomical Region Laterality Modality Other Narrative Procedure Note Fausto Delgaod MD - 07/20/2020 9:05 AM CST [facility] ENDOS[facility] Patient Name: Corrie Garcia Procedure Date: 07/20/2020 9:05 AM Date of : 1975 Admit Type: Outpatient Age: 45 Gender: Female Attending MD: Fausto Delgado M.D. Room: [facility] ENDOSCOPY ROOM 3 Note Status: Finalized [...] The scope was passed under direct vision.The [id number] endoscope was introduced through the anus [...] On: 07/20/2020 9:05 AM Recognized by the [place] [employer] for promoting quality in endoscopy Fausto Delgado MD ENDOSCOPY PROCEDURES Final Re sult from Last 3 Months or Most Recently Relevant to Health Maintenance Insurance [facility] AETNA MEDICARE [place]OLD [place] Advance Directives For more information, please contact: [phone] * Full Code (Latest Code Status on File) Date Activated Date Inactivated Comments 02/10/2025 10:02 AM 02/10/2025 10:56 PM * Full Code Date Activated Date Inactivated Comments 07/20/2020 8:24 AM 07/20/2020 2:42 PM Care Teams Data Entry Representative Relationship Specialty Start Date End Date Morena Sprague DO PCP - General Family Medicine 03/13/21 Omar Valenzuela PA [address] [facility] [place] [address] Physician Compliance Engineer Orthopedic Surgery 09/21/24
[2025-04-01 11:40] LABS: Hematocrit 39.0 % (37.0-47.0); Hemoglobin 11.9 g/dL (12.0-15.0); Mean Corpuscular HGB Conc 30.5 g/dl (32-36); Mean Corpuscular Hemoglobin 29.0 pg (26-34); Mean Corpuscular Volume 95.1 fl (80-100); Platelet Count Result 359 k/mm3 (150-375); Red Blood Count 4.10 M/mm3 (4.2-5.4); White Blood Count 4.6 K/mm3 (4.5-10.0)
[2025-04-01 11:41] LABS: Hematocrit 39.0 % (37.0-47.0); Hemoglobin 11.9 g/dL (12.0-15.0); Immature Granulocyte Percent A 0.2 % (0-0.5); Lymphocytes Absolute Auto 2.08 K/mm3 (0.9-3.2); Mean Corpuscular HGB Conc 30.5 g/dl (32-36); Mean Corpuscular Hemoglobin 29.0 pg (26-34); Mean Corpuscular Volume 94.9 fl (80-100); Nucleated Red Blood Cells Absolute Auto 0.000 K/mm3 (0.0-0.012); Nucleated Red Blood Cells Perc 0.0 % (0.0-0.2); Platelet Count Result 374 k/mm3 (150-375); Red Blood Count 4.11 M/mm3 (4.2-5.4); White Blood Count 4.6 K/mm3 (4.5-10.0)
[2025-04-01 11:51] LABS: Alanine Aminotransferase 14 U/L (6-35); Albumin Level 4.2 g/dL (3.5-5.1); Alkaline Phosphatase 61 U/L (38-126); Anion Gap 6 mmol/L (4-12); Aspartate Amino Transferase 37 U/L (14-36); Bilirubin,Total 0.5 mg/dL (0.2-1.3); Blood Urea Nitrogen 11 mg/dL (7-17); Calcium 9.2 mg/dL (8.4-10.2); Carbon Dioxide 29 mmol/L (22-30); Chloride 100 mmol/L (98-107); Cholesterol 238 mg/dL (0-200); Estimated Glomerular Filt Rate > 60; Glucose 84 mg/dL (65-110); HDL Direct 97 mg/dL; Potassium 4.2 mmol/L (3.4-5.0); Sodium 135 mmol/L (137-145); Total Protein 7.8 g/dL (6.3-8.2); Triglycerides 79 mg/dL (<150)
[2025-04-01 12:16] LABS: Thyroid Stimulating Hormone Reflex 1.030 uIU/mL (0.465-4.68)
[2025-04-01 12:26] LABS: Thyroid Stimulating Hormone 1.040 uIU/mL (0.465-4.680)
== END 2025-04-01 08:45 | disposition home or self-care (01) ==
LOC: ANHGOSHLAB 08:47
PROVIDERS: Nurse Practitioner Obstetrics & Gynecology; PCP Family Medicine; Visit Provider Psychiatry & Neurology Neurology
DX: N95.1 Menopausal and female climacteric states (principal); G40.909 Epilepsy, unspecified, not intractable, without status epilepticus; E78.5 Hyperlipidemia, unspecified; E55.9 Vitamin D deficiency, unspecified; E16.2 Hypoglycemia, unspecified; Z79.899 Other long term (current) drug therapy
CPT/HCPCS: 36415; 80053; 80061; 82306; 84146; 84443; 85025; 85027